=== PATIENT | male | born 1980 | race African-American/Black ===

== ENCOUNTER 2018-04-23 07:41 | Emergency (ER) | payer OTHER, SELFPAY ==
[2018-04-23] MEDS ORDERED: NA CHLORIDE 0.9% 1,000 ML ONE (07:59)
[2018-04-23] MEDS ORDERED: ONDANSETRON 4 MG/2 ML VIAL ONE (07:59)
[2018-04-23 08:24] LABS: Absolute Lymphocytes (CBC) 1.2 K/uL (0.7-4.9); Absolute Monocytes 0.3 K/uL (0.1-1.3); Absolute Neutrophil 9.4 K/uL (1.8-8.0); Basophils % 0.2 % (0-1.3); Eosinophils % 0.6 % (0-4.4); Hematocrit 42.2 % (39.6-49.0); Lymphocytes % 11.1 % (15.3-44.8); MCH 32.8 pg (27.0-35.0); MCV 95.4 fL (80-100); MPV 10.1 fL (7.6-11.3); Monocytes % 2.4 % (3.3-12.3); RBC Red Blood Cell Count 4.42 M/uL (4.33-5.43)
[2018-04-23 08:44] LABS: ALT/SGPT 62 U/L (12-78); AST/SGOT 51 U/L (15-37); Albumin 3.7 g/dL (3.4-5.0); Alkaline Phosphatase 80 U/L (45-117); BUN Blood Urea Nitrogen 17 mg/dL (7-18); Bicarbonate 29 mmol/L (21-32); Bilirubin Direct 0.1 mg/dL (0-0.2); Bilirubin Total 0.3 mg/dL (0.2-1.0); Glucose Level 145 mg/dL (74-106); Lipase 80 U/L (73-393); Potassium 3.7 mmol/L (3.5-5.1); Protein, Total 7.3 g/dL (6.4-8.2); Sodium Level 142 mmol/L (136-145)
[2018-04-23 09:53] LABS: Blood Morphology Comment NOT SEEN (NOT SEEN); Platelet Estimate ADEQ
--- NOTE | 2018-04-23 09:58 | EDPHYS ---
Physician Documentation [facility] Name: Bruec Oswald Age: 37 yrs Sex: Male : 1980 Arrival Date: 04/23/2018 Time: 07:43 Bed 15 Private MD: ED Physician Juarez Marte Historical: - Allergies: 04/23 07:47 NKDA; tw2 - PMHx: 07:47 Asthma; Hypertension; Back pain; tw2 - PSHx: 07:47 None; tw2 - Immunization history:: Adult Immunizations up to date. - Social history:: Smoking status: Patient uses tobacco products, smokes one pack cigarettes per day. - Ebola Screening: : Patient denies travel to an Ebola-affected area in the 21 days before illness onset. Vital Signs: 07:45 BP 183 / 92; Pulse 45; Resp 17; Temp 97.6(O); Pulse Ox 99% ; Weight 58.97 kg (R); Pain tw2 8/10; 08:09 BP 151 / 87; Pulse 47; Resp 15; Pulse Ox 100% on R/A; tw2 08:47 BP 143 / 86; Pulse 64; Resp 19; Pulse Ox 100% on R/A; tw2 09:32 BP 153 / 84; Pulse 51; Resp 17; Pulse Ox 100% on R/A; tw2 10:07 BP 167 / 98; Pulse 63; Resp 19; Temp 98.1; Pulse Ox 100% on R/A; aj 07:45 Dr. Marte at nurses station and notified of pts HR for us and EMS tw2 MDM: 07:54 Patient medically screened. 04/23 07:54 Order name: Basic Metabolic Panel; Complete Time: 09:14 04/23 07:54 Order name: CBC with Diff; Complete Time: 09:58 04/23 07:54 Order name: Hepatic Function; Complete Time: 09:14 04/23 07:54 Order name: Lipase; Complete Time: 09:14 04/23 07:56 Order name: Urine Dipstick--Ancillary (enter results) 04/23 07:54 Order name: IV Saline Lock; Complete Time: 08:06 04/23 07:54 Order name: Labs collected and sent; Complete Time: 08:07 04/23 07:54 Order name: Urine Dipstick-Ancillary (obtain specimen); Complete Time: 07:55 04/23 08:27 Order name: Manual Differential; Complete Time: 09:58 EDMS Administered Medications: 08:04 Drug: Zofran 4 mg Route: IVP; Site: right antecubital; tw2 08:25 Follow up: Response: No adverse reaction; Nausea is decreased tw2 08:07 Drug: NS 0.9% 1000 ml Route: IV; Rate: 1 bolus; Site: right antecubital; tw2 09:22 Follow up: Response: No adverse reaction; IV Status: Completed infusion; IV Intake: tw2 1000ml Disposition: 04/23/18 09:57 Discharged to Home. Impression: Vomiting. - Condition is Stable. - Discharge Instructions: Nausea and Vomiting. - Prescriptions for Zofran 4 mg Oral Tablet - take 1 tablet by ORAL route every 12 hours As needed; 6 tablet. Pepcid 20 mg Oral Tablet - take 1 tablet by ORAL route once daily; 20 tablet. - Medication Reconciliation Form, Thank You Letter, Antibiotic Education, Prescription Opioid Use form. - Follow up: Emergency Department; When: 2 - 3 days; Reason: Re-evaluation by your physician. Addendum: 05/13/2018 16:21 Addendum: CC - N/V Ab pain HPI-onset last night go better also with vomiting pain is g s generalized not localized, had one episode this am no resolved. PMH/ALL/ reviewed sochx lives with family PE VSS Gen- no distress nontoxic , Head- normal shape no masses ENT-op clear no erythema CV-rrr no murmur P- lungs clear no increased WOB Gi - abdomen soft non tender Skin no rash - neuro awake no deficits MDM - gastroenteritis , food born illness , viral gastroenteritis improved taking fluids no pain will discharge. Signatures: Dispatcher [employer] EDChanda Angulo RN RN aj Wise, Tara, RN RN tw2 Juarez Marte MD MD gs Corrections: (The following items were deleted from the chart) 04/23 10:08 09:57 04/23/2018 09:57 Discharged to Home. Impression: Vomiting. Condition is Stable. aj Forms are Medication Reconciliation Form, Thank You Letter, Antibiotic Education, Prescription Opioid Use. Follow up: Emergency Department; When: 2 - 3 days; Reason: Re-evaluation by your physician. jesica
--- NOTE | 2018-04-23 09:58 | ER ---
Nurse's Notes [facility] Name: Bruce Oswald Age: 37 yrs Sex: Male : 1980 Arrival Date: 04/23/2018 Time: 07:43 Bed 15 Private MD: Diagnosis: Vomiting Presentation: 04/23 07:39 Presenting complaint: EMS states: pt c/o abd pain that started last night, he called tw2 EMS but then lilibeth better so he refused transport, started bothering him again and call us, low HR in the 40's. Transition of care: patient was not received from another setting of care. Onset of symptoms was April 23, 2018 at 07:44. Risk Assessment: Do you want to hurt yourself or someone else? Patient reports no desire to harm self or others. Initial Sepsis Screen: Does the patient meet any 2 criteria? No. Patient's initial sepsis screen is negative. Does the patient have a suspected source of infection? No. Patient's initial sepsis screen is negative. Care prior to arrival: None. 07:39 Method Of Arrival: EMS: [facility] tw2 07:39 Acuity: ZENON 3 tw2 Historical: - Allergies: 07:47 NKDA; tw2 - PMHx: 07:47 Asthma; Hypertension; Back pain; tw2 - PSHx: 07:47 None; tw2 - Immunization history:: Adult Immunizations up to date. - Social history:: Smoking status: Patient uses tobacco products, smokes one pack cigarettes per day. - Ebola Screening: : Patient denies travel to an Ebola-affected area in the 21 days before illness onset. Screenin:49 Abuse screen: Denies threats or abuse. Nutritional screening: No deficits noted. tw2 Tuberculosis screening: No symptoms or risk factors identified. Fall Risk None identified. Assessment: 07:47 General: Appears uncomfortable, slender, Behavior is cooperative, fussy. Pain: tw2 Complains of pain in abdomen. Neuro: Level of Consciousness is awake, alert, obeys commands, Oriented to person, place, time, situation. Cardiovascular: Denies chest pain, shortness of breath, Heart tones S1 S2 Capillary refill < 3 seconds Patient's skin is warm and dry. Respiratory: Airway is patent Respiratory effort is even, unlabored, Respiratory pattern is regular, symmetrical, Breath sounds are clear bilaterally. GI: Bowel sounds present X 4 quads. Abd is soft Reports intolerance of fluids, intolerance of food, nausea, vomiting. : No signs and/or symptoms were reported regarding the genitourinary system. EENT: No signs and/or symptoms were reported regarding the EENT system. Derm: No signs and/or symptoms reported regarding the dermatologic system. Skin is intact, is healthy with good turgor, Skin temperature is warm. Musculoskeletal: Range of motion: intact in all extremities. 08:30 Reassessment: Patient appears in no apparent distress at this time. Patient and/or tw2 family updated on plan of care and expected duration. Pain level reassessed. Patient is alert, oriented x 3, equal unlabored respirations, skin warm/dry/pink. 09:31 Reassessment: Patient appears in no apparent distress at this time. Patient and/or tw2 family updated on plan of care and expected duration. Pain level reassessed. Patient is alert, oriented x 3, equal unlabored respirations, skin warm/dry/pink. Vital Signs: 07:45 BP 183 / 92; Pulse 45; Resp 17; Temp 97.6(O); Pulse Ox 99% ; Weight 58.97 kg (R); Pain tw2 8/10; 08:09 BP 151 / 87; Pulse 47; Resp 15; Pulse Ox 100% on R/A; tw2 08:47 BP 143 / 86; Pulse 64; Resp 19; Pulse Ox 100% on R/A; tw2 09:32 BP 153 / 84; Pulse 51; Resp 17; Pulse Ox 100% on R/A; tw2 10:07 BP 167 / 98; Pulse 63; Resp 19; Temp 98.1; Pulse Ox 100% on R/A; aj 07:45 Dr. Marte at nurses station and notified of pts HR for us and EMS tw2 ED Course: 07:43 Patient arrived in ED. tw2 07:45 Triage completed. tw2 07:45 Arm band placed on. tw2 07:48 Bed in low position. Call light in reach. Side rails up X2. burrito maker on. Pulse tw2 ox on. NIBP on. Warm blanket given. 07:49 Darcy Cade RN is Primary Nurse. tw2 07:50 Juarez Marte MD is Attending Physician. gs 08:00 Inserted saline lock: 22 gauge in right antecubital area, using aseptic technique. tw2 Blood collected. 09:33 No provider procedures requiring assistance completed. tw2 09:55 Report given to LULY Armas. tw2 10:07 IV discontinued, intact, bleeding controlled, No redness/swelling at site. Pressure aj dressing applied. Administered Medications: 08:04 Drug: Zofran 4 mg Route: IVP; Site: right antecubital; tw2 08:25 Follow up: Response: No adverse reaction; Nausea is decreased tw2 08:07 Drug: NS 0.9% 1000 ml Route: IV; Rate: 1 bolus; Site: right antecubital; tw2 09:22 Follow up: Response: No adverse reaction; IV Status: Completed infusion; IV Intake: tw2 1000ml Intake: :22 IV: 1000ml; Total: 1000ml. tw2 Outcome: 09:57 Discharge ordered by . gs 10:07 Discharged to home ambulatory. aj 10:07 Condition: good 10:07 Discharge instructions given to patient, Instructed on discharge instructions, follow up and referral plans. medication usage, Demonstrated understanding of instructions, follow-up care, medications, Prescriptions given X 2. 10:08 Patient left the ED. aj Signatures: Chanda Watson RN RN aj Wise, Tara, RN RN tw2 Juarez Marte MD MD
[2018-04-23 10:14] VITALS: O2SAT 100
[2018-04-23 10:17] VITALS: BP 167/98; TEMP 98.1
[2018-04-23 10:39] LABS: Urine Blood NEGATIVE (NEG); Urine Glucose NEGATIVE (NEG); Urine Protein NEGATIVE (NEG); Urine pH 7.5 (5.0-7.0)
== END 2018-04-23 10:08 | disposition home or self-care (01) ==
LOC: ER 07:41
DX: R11.10 Vomiting, unspecified (principal); J45.909 Unspecified asthma, uncomplicated; I10 Essential (primary) hypertension; F17.210 Nicotine dependence, cigarettes, uncomplicated
CPT/HCPCS: 36415; 80048; 80076; 81003; 83690; 85025; 96361; 96374; 99284; J2405; J7030

== ENCOUNTER 2018-06-19 10:46 | Emergency (ER) | payer SELFPAY ==
[2018-06-19 12:03] LABS: Urine Blood NEGATIVE (NEG); Urine Glucose NEGATIVE (NEG); Urine Protein NEGATIVE (NEG); Urine pH 7.5 (5.0-7.0)
[2018-06-19 12:22] LABS: Absolute Lymphocytes (CBC) 2.3 K/uL (0.7-4.9); Absolute Monocytes 0.4 K/uL (0.1-1.3); Absolute Neutrophil 5.9 K/uL (1.8-8.0); Eosinophils % 0.4 % (0-4.4); Hematocrit 43.1 % (39.6-49.0); Lymphocytes % 26.1 % (15.3-44.8); MCH 33.1 pg (27.0-35.0); MCV 96.4 fL (80-100); MPV 9.8 fL (7.6-11.3); Monocytes % 4.6 % (3.3-12.3); RBC Red Blood Cell Count 4.47 M/uL (4.33-5.43)
[2018-06-19] MEDS ORDERED: ONDANSETRON 4 MG/2 ML VIAL ONE (12:31)
[2018-06-19 12:32] LABS: ALT/SGPT 49 U/L (12-78); AST/SGOT 24 U/L (15-37); Albumin 3.9 g/dL (3.4-5.0); Alkaline Phosphatase 84 U/L (45-117); Amylase Level 59 U/L (25-115); BUN Blood Urea Nitrogen 7 mg/dL (7-18); Bicarbonate 28 mmol/L (21-32); Bilirubin Direct 0.1 mg/dL (0-0.2); Bilirubin Total 0.3 mg/dL (0.2-1.0); Glucose Level 90 mg/dL (74-106); Lipase 105 U/L (73-393); Potassium 4.1 mmol/L (3.5-5.1); Protein, Total 7.6 g/dL (6.4-8.2); Sodium Level 145 mmol/L (136-145)
[2018-06-19] MEDS ORDERED: NA CHLORIDE 0.9% 1,000 ML ONE (12:32)
--- NOTE | 2018-06-19 13:59 | ER ---
Nurse's Notes [facility] Name: Bruce Oswald Age: 38 yrs Sex: Male : 1980 Arrival Date: 06/19/2018 Time: 10:48 Bed 25 Private MD: None, None Diagnosis: Nausea and vomiting Presentation: 06/19 10:55 Presenting complaint: Patient states: vomiting x 1 day after drinking ice cold milk sv yesterday after working in the heat. Transition of care: patient was not received from another setting of care. Onset of symptoms was June 18, 2018. Care prior to arrival: None. 10:55 Method Of Arrival: Ambulatory sv 10:55 Acuity: ZENON 4 sv 14:37 Risk Assessment: Do you want to hurt yourself or someone else? Patient reports no tl3 desire to harm self or others. Initial Sepsis Screen: Does the patient meet any 2 criteria? No. Patient's initial sepsis screen is negative. Does the patient have a suspected source of infection? No. Patient's initial sepsis screen is negative. Historical: - Allergies: 10:56 NKDA; sv - PMHx: 10:56 Asthma; Back pain; Hypertension; sv - PSHx: 10:56 None; sv - Immunization history:: Adult Immunizations up to date. - Social history:: Smoking status: Patient uses tobacco products, chewing tobacco. - Ebola Screening: : No symptoms or risks identified at this time. Screenin:43 Abuse screen: Denies threats or abuse. Denies injuries from another. Nutritional ss screening: No deficits noted. Tuberculosis screening: Never had TB. Fall Risk None identified. Assessment: 11:43 General: Appears in no apparent distress. comfortable, Behavior is calm, cooperative, ss Denies fever, feeling ill, fatigue, chills. Pain: Complains of pain in right upper quadrant, left upper quadrant, right lower quadrant and left lower quadrant Pain currently is 1 out of 10 on a pain scale. Quality of pain is described as sore, "from vomiting" Is. Neuro: Level of Consciousness is awake, alert, obeys commands, Oriented to person, place, time, situation. Cardiovascular: Capillary refill < 3 seconds is brisk in bilateral fingers. Respiratory: Airway is patent Respiratory effort is even, unlabored, Respiratory pattern is regular, symmetrical. GI: Abdomen is non-distended, Bowel sounds present X 4 quads. Reports nausea, vomiting, Patient currently denies diarrhea. : No signs and/or symptoms were reported regarding the genitourinary system. EENT: Nares are clear Oral mucosa is moist. Throat is clear. Derm: Skin is intact, is healthy with good turgor, Skin is dry, Skin is pink, warm \\T\\ dry. normal. Musculoskeletal: Circulation, motion, and sensation intact. Range of motion: intact in all extremities, Swelling absent. 13:09 Reassessment: Patient appears in no apparent distress at this time. Patient and/or tw2 family updated on plan of care and expected duration. Pain level reassessed. Patient is alert, oriented x 3, equal unlabored respirations, skin warm/dry/pink. Patient states feeling better. 14:34 Reassessment: Patient appears in no apparent distress at this time. Patient and/or tl3 family updated on plan of care and expected duration. Pain level reassessed. Patient is alert, oriented x 3, equal unlabored respirations, skin warm/dry/pink. Vital Signs: 10:56 BP 169 / 94; Pulse 57; Resp 18; Temp 98.3; Pulse Ox 97% ; Weight 68.04 kg; Height 5 ft. sv 9 in. (175.26 cm); Pain 0/10; 13:00 BP 167 / 100; Pulse 77; Resp 17; Pulse Ox 100% on R/A; tw2 14:34 BP 161 / 98; Pulse 58; Resp 16; Pulse Ox 100% on R/A; tl3 10:56 Body Mass Index 22.15 (68.04 kg, 175.26 cm) sv ED Course: 10:48 Patient arrived in ED. sb2 10:48 None, None is Private Physician. sb2 10:56 Triage completed. sv 10:57 Arm band placed on left wrist. sv 10:57 Patient placed in an exam room, Patient notified of wait time. sv 11:38 Denisse Parnell F[facility]-C [facility]. kb 11:38 Marybeth Nava MD is Attending Physician. kb 11:43 Sima Ware RN is Primary Nurse. ss 11:43 Patient has correct armband on for positive identification. Bed in low position. Call ss light in reach. 12:01 Inserted saline lock: 22 gauge in left antecubital area, using aseptic technique. Blood ss collected. 12:01 Urine collected: clean catch specimen, clear. ss 12:53 Primary Nurse role handed off by Sima Ware RN tw2 12:53 Darcy Cade, RN is Primary Nurse. tw2 14:34 No provider procedures requiring assistance completed. IV discontinued, intact, tl3 bleeding controlled, No redness/swelling at site. Pressure dressing applied. Administered Medications: 12:28 Drug: NS 0.9% 1000 ml Route: IV; Rate: 1000 ml; Site: left antecubital; ss 14:36 Follow up: IV Status: Completed infusion; IV Intake: 600ml tl3 12:28 Drug: Zofran 4 mg Route: IVP; Site: left antecubital; ss 14:35 Follow up: Response: No adverse reaction; Nausea is decreased tl3 Intake: 14:36 IV: 600ml; Total: 600ml. tl3 Outcome: 13:59 Discharge ordered by . kb 14:34 Discharged to home ambulatory. tl3 14:34 Condition: stable 14:34 Discharge instructions given to patient, Instructed on discharge instructions, follow up and referral plans. discussed blood pressure readings and monitoring with follow up with PCP for management 14:38 Patient left the ED. tl3 Signatures: Denisse Parnell, AMADO-C NURSE CASE MANAGER-Mariaa Ferrell RN LULY Sima Ware RN RN Darcy Cade RN RN tw2 Livia Norris 2 Meme Castelan RN RN tl3
--- NOTE | 2018-06-19 14:00 | EDPHYS ---
Physician Documentation [facility] Name: Bruce Oswald Age: 38 yrs Sex: Male : 1980 Arrival Date: 06/19/2018 Time: 10:48 Bed 25 Private MD: None, None ED Physician Marybeth Nava HPI: 06/19 13:57 This 38 yrs old Black Male presents to ER via Ambulatory with complaints of Vomiting. kb 13:57 The patient presents to the emergency department with nausea, vomiting. Onset: The kb symptoms/episode began/occurred yesterday. Possible causes: started after drinking a half gallon of milk. The symptoms are aggravated by movement, food , The symptoms are alleviated by nothing. Associated signs and symptoms: Pertinent positives: abdominal pain, nausea, vomiting. Severity of symptoms: At their worst the symptoms were moderate in the emergency department the symptoms are unchanged. The patient has not experienced similar symptoms in the past. The patient has not recently seen a physician. Historical: - Allergies: 10:56 NKDA; sv - PMHx: 10:56 Asthma; Back pain; Hypertension; sv - PSHx: 10:56 None; sv - Immunization history:: Adult Immunizations up to date. - Social history:: Smoking status: Patient uses tobacco products, chewing tobacco. - Ebola Screening: : No symptoms or risks identified at this time. ROS: 13:58 Constitutional: Negative for fever, chills, and weight loss, ENT: Negative for injury, kb pain, and discharge, Neck: Negative for injury, pain, and swelling, Cardiovascular: Negative for chest pain, palpitations, and edema, Respiratory: Negative for shortness of breath, cough, wheezing, and pleuritic chest pain, Back: Negative for injury and pain, : Negative for injury, bleeding, discharge, and swelling, MS/Extremity: Negative for injury and deformity, Skin: Negative for injury, rash, and discoloration, Neuro: Negative for headache, weakness, numbness, tingling, and seizure. 13:58 Abdomen/GI: Positive for abdominal pain, nausea and vomiting, Negative for diarrhea, constipation, abdominal cramps, abdominal distension, anorexia. Exam: 13:58 Constitutional: This is a well developed, well nourished patient who is awake, alert, kb and in no acute distress. Head/Face: Normocephalic, atraumatic. Chest/axilla: Normal chest wall appearance and motion. Nontender with no deformity. No lesions are appreciated. Cardiovascular: Regular rate and rhythm with a normal S1 and S2. No gallops, murmurs, or rubs. Normal PMI, no JVD. No pulse deficits. Respiratory: Lungs have equal breath sounds bilaterally, clear to auscultation and percussion. No rales, rhonchi or wheezes noted. No increased work of breathing, no retractions or nasal flaring. Back: No spinal tenderness. No costovertebral tenderness. Full range of motion. Skin: Warm, dry with normal turgor. Normal color with no rashes, no lesions, and no evidence of cellulitis. MS/ Extremity: Pulses equal, no cyanosis. Neurovascular intact. Full, normal range of motion. Neuro: Awake and alert, GCS 15, oriented to person, place, time, and situation. Cranial nerves II-XII grossly intact. Motor strength 5/5 in all extremities. Sensory grossly intact. Cerebellar exam normal. Normal gait. 13:58 Abdomen/GI: Inspection: abdomen appears normal, Bowel sounds: normal, in all quadrants, Palpation: soft, in all quadrants, mild abdominal tenderness, in all quadrants. Vital Signs: 10:56 BP 169 / 94; Pulse 57; Resp 18; Temp 98.3; Pulse Ox 97% ; Weight 68.04 kg; Height 5 ft. sv 9 in. (175.26 cm); Pain 0/10; 13:00 BP 167 / 100; Pulse 77; Resp 17; Pulse Ox 100% on R/A; tw2 14:34 BP 161 / 98; Pulse 58; Resp 16; Pulse Ox 100% on R/A; tl3 10:56 Body Mass Index 22.15 (68.04 kg, 175.26 cm) sv MDM: 11:38 Patient medically screened. kb 13:57 Data reviewed: vital signs, nurses notes. Data interpreted: Pulse oximetry: on room air kb is 100 %. Interpretation: normal. Counseling: I had a detailed discussion with the patient and/or guardian regarding: the historical points, exam findings, and any diagnostic results supporting the discharge/admit diagnosis, lab results, the need for outpatient follow up, a family practitioner, to return to the emergency department if symptoms worsen or persist or if there are any questions or concerns that arise at home. 06/19 11:43 Order name: Amylase, Serum; Complete Time: 12:33 kb 06/19 11:43 Order name: Basic Metabolic Panel; Complete Time: 12:33 kb 06/19 11:43 Order name: CBC with Diff; Complete Time: 12:33 kb 06/19 11:43 Order name: Hepatic Function; Complete Time: 12:33 kb 06/19 11:43 Order name: Lipase; Complete Time: 12:33 kb 06/19 11:54 Order name: Urine Dipstick--Ancillary (enter results); Complete Time: 12:11 eb 06/19 11:43 Order name: IV Saline Lock; Complete Time: 12:01 kb 06/19 11:43 Order name: Labs collected and sent; Complete Time: 12:01 kb 06/19 11:43 Order name: Urine Dipstick-Ancillary (obtain specimen); Complete Time: 12:01 kb 06/19 13:42 Order name: PO challenge; Complete Time: 14:38 kb Administered Medications: 12:28 Drug: NS 0.9% 1000 ml Route: IV; Rate: 1000 ml; Site: left antecubital; ss 14:36 Follow up: IV Status: Completed infusion; IV Intake: 600ml tl3 12:28 Drug: Zofran 4 mg Route: IVP; Site: left antecubital; ss 14:35 Follow up: Response: No adverse reaction; Nausea is decreased tl3 Disposition: 18:49 Co-signature as Attending Physician, Marybeth Nava MD. ma2 Disposition: 06/19/18 13:59 Discharged to Home. Impression: Nausea and vomiting. - Condition is Stable. - Discharge Instructions: Nausea and Vomiting, Adult, [id number]. - Prescriptions for Zofran 4 mg Oral Tablet - take 1 tablet by ORAL route every 6 hours As needed; 20 tablet. - Medication Reconciliation Form, Thank You Letter, Antibiotic Education, Prescription Opioid Use form. - Follow up: Emergency Department; When: As needed; Reason: Worsening of condition. Follow up: Private Physician; When: 2 - 3 days; Reason: Recheck today's complaints, Continuance of care, Re-evaluation by your physician. Signatures: Dispatcher [employer] Denisse Palencia, AMADO-C AMADO-Mariaa Ferrell, RN RN sv Sima Ware RN RN ss Alzahri, Mohammad, MD MD ma2 Meme Castelan RN RN tl3 Corrections: (The following items were deleted from the chart) 14:38 13:59 06/19/2018 13:59 Discharged to Home. Impression: Nausea and vomiting. Condition tl3 is Stable. Forms are Medication Reconciliation Form, Thank You Letter, Antibiotic Education, Prescription Opioid Use. Follow up: Emergency Department; When: As needed; Reason: Worsening of condition. Follow up: Private Physician; When: 2 - 3 days; Reason: Recheck today's complaints, Continuance of care, Re-evaluation by your physician. kb
[2018-06-19 14:44] VITALS: TEMP 98.3
[2018-06-19 14:45] VITALS: O2SAT 100
[2018-06-19 14:46] VITALS: BP 161/98
== END 2018-06-19 14:38 | disposition home or self-care (01) ==
LOC: ER 10:46
DX: R11.2 Nausea with vomiting, unspecified (principal); I10 Essential (primary) hypertension; Z72.0 Tobacco use
CPT/HCPCS: 36415; 80048; 80076; 81003; 82150; 83690; 85025; 96361; 96374; 99283; J2405; J7030

== ENCOUNTER 2019-03-17 21:17 | Emergency (ER) | payer SELFPAY ==
[2019-03-17] MEDS ORDERED: HYDROCODONE/APAP 7.5/325 MG TAB ONE (22:15)
--- NOTE | 2019-03-17 22:18 | ER ---
Nurse's Notes [facility] Name: Bruce Oswald Age: 38 yrs Sex: Male : 1980 Arrival Date: 03/17/2019 Time: 21:21 Bed 30 Private MD: Diagnosis: Sciatica, right side Presentation: 03/17 21:29 Presenting complaint: Patient states: Low back pain that shoots down right leg since aj yesterday. Ambulated to triage with steady gait. Care prior to arrival: None. 21:29 Method Of Arrival: Ambulatory 21:29 Acuity: ZENNO 4 21:50 Transition of care: patient was not received from another setting of care. Onset of ca1 symptoms was March 16, 2019. Risk Assessment: Do you want to hurt yourself or someone else? Patient reports no desire to harm self or others. Initial Sepsis Screen: Does the patient meet any 2 criteria? No. Patient's initial sepsis screen is negative. Does the patient have a suspected source of infection? No. Patient's initial sepsis screen is negative. Triage Assessment: 21:29 General: Appears in no apparent distress. uncomfortable, Behavior is calm, cooperative, aj appropriate for age. Pain: Complains of pain in buttocks and right leg. Neuro: Level of Consciousness is awake, alert, obeys commands, Oriented to person, place, time, situation, Appropriate for age. Respiratory: Airway is patent Respiratory effort is even, unlabored, Respiratory pattern is regular, symmetrical. Musculoskeletal: Circulation, motion, and sensation intact. Range of motion: intact in all extremities. Historical: - Allergies: 21:29 NKDA; aj - Immunization history:: Adult Immunizations not up to date. - Social history:: Smoking status: Patient uses tobacco products, smokes one pack cigarettes per day. - Ebola Screening: : Patient negative for fever greater than or equal to 101.5 degrees Fahrenheit, and additional compatible Ebola Virus Disease symptoms Patient denies exposure to infectious person Patient denies travel to an Ebola-affected area in the 21 days before illness onset. Screenin:35 Abuse screen: Denies threats or abuse. Denies injuries from another. Nutritional ca1 screening: No deficits noted. Tuberculosis screening: No symptoms or risk factors identified. Fall Risk None identified. Assessment: 21:35 General: Appears in no apparent distress. uncomfortable, Behavior is calm, cooperative, ca1 appropriate for age. Pain: Complains of pain in right leg and buttocks Pain radiates to right leg Pain currently is 10 out of 10 on a pain scale. Quality of pain is described as shooting, Pain began 1 day ago. Is continuous. Neuro: Level of Consciousness is awake, alert, obeys commands, Oriented to person, place, time, situation. Cardiovascular: Heart tones S1 S2 present Capillary refill < 3 seconds. Respiratory: Airway is patent Respiratory effort is even, unlabored, Respiratory pattern is regular, symmetrical, Breath sounds are clear bilaterally. Derm: Skin is intact, is healthy with good turgor, Skin is pink, warm \T\ dry. Musculoskeletal: Circulation, motion, and sensation intact. Capillary refill < 3 seconds, Range of motion: intact in all extremities. 22:40 Reassessment: Patient appears in no apparent distress at this time. Patient and/or ca1 family updated on plan of care and expected duration. Pain level reassessed. Patient is alert, oriented x 3, equal unlabored respirations, skin warm/dry/pink. Patient states feeling better. Vital Signs: 21:29 BP 117 / 63; Pulse 73; Resp 18; Temp 98.3; Pulse Ox 97% on R/A; Weight 68.04 kg; Height aj 5 ft. 9 in. (175.26 cm); 22:40 BP 115 / 60; Pulse 82; Resp 18 S; Temp 98.1(O); Pulse Ox 99% on R/A; ca1 21:29 Body Mass Index 22.15 (68.04 kg, 175.26 cm) aj ED Course: 21:21 Patient arrived in ED. es 21:29 Triage completed. aj 21:29 Arm band placed on left wrist. Patient placed in an exam room. aj 21:35 Patient has correct armband on for positive identification. Placed in gown. Bed in low ca1 position. Call light in reach. Side rails up X 1. Pulse ox on. NIBP on. Warm blanket given. 21:35 No provider procedures requiring assistance completed. Patient did not have IV access ca1 during this emergency room visit. 21:37 Denisse Parnell FNP-C is PHCP. kb 21:37 Marybeth Nava MD is Attending Physician. kb 21:43 Khloe Omer, RN is Primary Nurse. ca1 Administered Medications: 22:00 Drug: [place] (7.5 mg-325 mg) 1 tabs Route: PO; mg2 22:48 Follow up: Response: No adverse reaction; Pain is decreased ca1 Outcome: 22:17 Discharge ordered by . jorgito 22:51 Discharged to home ambulatory, with significant other. ca1 22:51 Condition: stable 22:51 Discharge instructions given to patient, Instructed on discharge instructions, follow up and referral plans. medication usage, Demonstrated understanding of instructions, follow-up care, medications, Prescriptions given X 2. 22:52 Patient left the ED. ca1 Signatures: Denisse Parnell, TRAINING EXECUTIVE-C TRAINING EXECUTIVE-Chanda Latham, RN RN Debbie Brian Michele, RN LULY mg2 Khloe Omer RN RN ca1
--- NOTE | 2019-03-17 22:18 | EDPHYS ---
Physician Documentation [facility] Name: Bruce Oswald Age: 38 yrs Sex: Male : 1980 Arrival Date: 03/17/2019 Time: 21:21 Bed 30 Private MD: ED Physician Marybeth Nava HPI: 03/17 22:18 This 38 yrs old Black Male presents to ER via Ambulatory with complaints of Back Pain. kb 22:18 The patient presents with pain that is acute, with no known mechanism of injury. The kb symptoms are located in the right low back. Onset: The symptoms/episode began/occurred this morning. The pain radiates to the right leg. Associated signs and symptoms: The patient has no apparent associated signs or symptoms. The problem was sustained from unknown cause. Modifying factors: The patient symptoms are alleviated by rest, the patient symptoms are aggravated by any movement. Severity of symptoms: At their worst the symptoms were moderate, in the emergency department the symptoms are unchanged. The patient has not experienced similar symptoms in the past. The patient has not recently seen a physician. Historical: - Allergies: 21:29 NKDA; aj - Immunization history:: Adult Immunizations not up to date. - Social history:: Smoking status: Patient uses tobacco products, smokes one pack cigarettes per day. - Ebola Screening: : Patient negative for fever greater than or equal to 101.5 degrees Fahrenheit, and additional compatible Ebola Virus Disease symptoms Patient denies exposure to infectious person Patient denies travel to an Ebola-affected area in the 21 days before illness onset. ROS: 22:05 Constitutional: Negative for fever, chills, and weight loss, Cardiovascular: Negative kb for chest pain, palpitations, and edema, Respiratory: Negative for shortness of breath, cough, wheezing, and pleuritic chest pain, Abdomen/GI: Negative for abdominal pain, nausea, vomiting, diarrhea, and constipation, : Negative for injury, bleeding, discharge, and swelling, MS/Extremity: Negative for injury and deformity, Skin: Negative for injury, rash, and discoloration, Neuro: Negative for headache, weakness, numbness, tingling, and seizure. 22:05 Back: Positive for pain at rest, pain with movement, radiated pain, of the right low back. Exam: 22:05 Constitutional: This is a well developed, well nourished patient who is awake, alert, kb and in no acute distress. Head/Face: Normocephalic, atraumatic. Neck: Trachea midline, no thyromegaly or masses palpated, and no cervical lymphadenopathy. Supple, full range of motion without nuchal rigidity, or vertebral point tenderness. No Meningismus. Chest/axilla: Normal chest wall appearance and motion. Nontender with no deformity. No lesions are appreciated. Cardiovascular: Regular rate and rhythm with a normal S1 and S2. No gallops, murmurs, or rubs. Normal PMI, no JVD. No pulse deficits. Respiratory: Lungs have equal breath sounds bilaterally, clear to auscultation and percussion. No rales, rhonchi or wheezes noted. No increased work of breathing, no retractions or nasal flaring. Back: No spinal tenderness. No costovertebral tenderness. Full range of motion. Skin: Warm, dry with normal turgor. Normal color with no rashes, no lesions, and no evidence of cellulitis. MS/ Extremity: Pulses equal, no cyanosis. Neurovascular intact. Full, normal range of motion. Neuro: Awake and alert, GCS 15, oriented to person, place, time, and situation. Cranial nerves II-XII grossly intact. Motor strength 5/5 in all extremities. Sensory grossly intact. Cerebellar exam normal. Normal gait. 22:05 Abdomen/GI: Inspection: abdomen appears normal, Bowel sounds: normal, in all quadrants, Palpation: soft, in all quadrants, moderate abdominal tenderness, in the right lower quadrant. Vital Signs: 21:29 BP 117 / 63; Pulse 73; Resp 18; Temp 98.3; Pulse Ox 97% on R/A; Weight 68.04 kg; Height aj 5 ft. 9 in. (175.26 cm); 22:40 BP 115 / 60; Pulse 82; Resp 18 S; Temp 98.1(O); Pulse Ox 99% on R/A; ca1 21:29 Body Mass Index 22.15 (68.04 kg, 175.26 cm) aj MDM: 21:37 Patient medically screened. kb 22:03 Data reviewed: vital signs, nurses notes. Data interpreted: Pulse oximetry: on room air kb is 97 %. Interpretation: normal. 22:18 Counseling: I had a detailed discussion with the patient and/or guardian regarding: the kb historical points, exam findings, and any diagnostic results supporting the discharge/admit diagnosis, the need for outpatient follow up, a family practitioner, to return to the emergency department if symptoms worsen or persist or if there are any questions or concerns that arise at home. Administered Medications: 22:00 Drug: [place] (7.5 mg-325 mg) 1 tabs Route: PO; mg2 22:48 Follow up: Response: No adverse reaction; Pain is decreased ca1 Disposition: 03/18 02:20 Co-signature as Attending Physician, Marybeth Nava MD. ma2 Disposition: 03/17/19 22:17 Discharged to Home. Impression: Sciatica, right side. - Condition is Stable. - Discharge Instructions: Sciatica, [id number], Back Exercises, [id number]. - Prescriptions for Cyclobenzaprine 10 mg Oral Tablet - take 1 tablet by ORAL route every 8 hours As needed; 21 tablet. Diclofenac Sodium 75 mg Oral Tablet, Delayed Release (E.C.) - take 1 tablet by ORAL route 2 times per day As needed; 30 tablet. - Medication Reconciliation Form, Thank You Letter, Antibiotic Education, Prescription Opioid Use, Work release form form. - Follow up: Emergency Department; When: As needed; Reason: Worsening of condition. Follow up: Private Physician; When: 2 - 3 days; Reason: Recheck today's complaints, Continuance of care, Re-evaluation by your physician. Signatures: Denisse Parnell, AMADO-C AMADO-Chanda Latham RN RN aj Alzahri, Mohammad, MD MD [facility] RN RN mg2 Khloe Omer RN RN ca1 Corrections: (The following items were deleted from the chart) 03/17 22:52 22:17 03/17/2019 22:17 Discharged to Home. Impression: Sciatica, right side. Condition ca1 is Stable. Forms are Medication Reconciliation Form, Thank You Letter, Antibiotic Education, Prescription Opioid Use. Follow up: Emergency Department; When: As needed; Reason: Worsening of condition. Follow up: Private Physician; When: 2 - 3 days; Reason: Recheck today's complaints, Continuance of care, Re-evaluation by your physician. kb
== END 2019-03-17 22:52 | disposition home or self-care (01) ==
LOC: ER 21:17
DX: M54.31 Sciatica, right side (principal); F17.210 Nicotine dependence, cigarettes, uncomplicated
CPT/HCPCS: 99283

== ENCOUNTER 2019-03-22 04:22 | Emergency (ER) | payer SELFPAY ==
[2019-03-22] MEDS ORDERED: THIAMINE 200 MG/2 ML INJ ONE (04:53)
[2019-03-22] MEDS ORDERED: NA CHLORIDE 0.9% 1,000 ML ONE (04:55)
[2019-03-22] MEDS ORDERED: FOLIC ACID 5 MG/ML VIAL ONE (04:55)
[2019-03-22 05:07] LABS: Barbiturates NEGATIVE (NEGATIVE); Benzodiazepines NEGATIVE (NEGATIVE); Cocaine NEGATIVE (NEGATIVE); METHAMPHETAM NEGATIVE (NEGATIVE); Methadone NEGATIVE (NEGATIVE); Opiates NEGATIVE (NEGATIVE); Phencyclidine NEGATIVE (NEGATIVE); THC Cannibis NEGATIVE (NEGATIVE)
[2019-03-22 05:33] LABS: Absolute Lymphocytes (CBC) 1.3 K/uL (0.7-4.9); Absolute Monocytes 0.6 K/uL (0.1-1.3); Absolute Neutrophil 5.4 K/uL (1.8-8.0); Basophils % 0.6 % (0-1.3); Eosinophils % 0.7 % (0-4.4); Hematocrit 40.8 % (39.6-49.0); MPV 9.9 fL (7.6-11.3); Monocytes % 7.7 % (3.3-12.3); RBC Red Blood Cell Count 4.33 M/uL (4.33-5.43)
[2019-03-22 05:39] LABS: Protime INR 0.96
[2019-03-22] MEDS ORDERED: MORPHINE 4 MG/ML SYR ONE (05:43)
[2019-03-22] MEDS ORDERED: ONDANSETRON 4 MG/2 ML VIAL ONE (05:44)
[2019-03-22 05:50] LABS: ALT/SGPT 43 U/L (12-78); AST/SGOT 49 U/L (15-37); Albumin 3.7 g/dL (3.4-5.0); Alkaline Phosphatase 80 U/L (45-117); BUN Blood Urea Nitrogen 10 mg/dL (7-18); Bicarbonate 28 mmol/L (21-32); Bilirubin Direct 0.1 mg/dL (0-0.2); Bilirubin Total 0.2 mg/dL (0.2-1.0); Glucose Level 128 mg/dL (74-106); Magnesium 1.8 mg/dL (1.8-2.4); NT PRO-BNP 238 pg/mL (<125); Potassium 3.4 mmol/L (3.5-5.1); Protein, Total 7.2 g/dL (6.4-8.2); Sodium Level 144 mmol/L (136-145); Troponin (Emerg Dept Use Only) < 0.02 ng/mL (0.0-0.045)
[2019-03-22 06:01] LABS: Urine Blood NEGATIVE (NEG); Urine Glucose NEGATIVE (NEG); Urine Protein NEGATIVE (NEG); Urine Specific Gravity 1.025 (1.005-1.030); Urine pH 8.5 (5.0-7.0)
--- NOTE | 2019-03-22 06:22 | ER ---
Nurse's Notes [facility] Name: Bruce Oswald Age: 38 yrs Sex: Male : 1980 Arrival Date: 03/22/2019 Time: 04:27 Bed 7 Private MD: Diagnosis: Altered mental status, unspecified;Abuse of non-psychoactive substances;Type 2 diabetes mellitus;Vomiting;Abdominal tenderness Presentation: 03/22 04:27 Presenting complaint: EMS states: pt's girlfriend reported pt having altered mental bb status after smoking too much synthetic last night. Transition of care: patient was not received from another setting of care. Onset of symptoms was March 21, 2019. Risk Assessment: Do you want to hurt yourself or someone else? Patient reports no desire to harm self or others. Initial Sepsis Screen: Does the patient meet any 2 criteria? No. Patient's initial sepsis screen is negative. Does the patient have a suspected source of infection? No. Patient's initial sepsis screen is negative. Care prior to arrival: None. 04:27 Method Of Arrival: EMS: [facility] bb 04:27 Acuity: ZENON 2 bb Historical: - Allergies: 04:30 NKDA; bb - PMHx: 04:30 Asthma; Back pain; Hypertension; Diabetes - NIDDM; bb - Immunization history:: Adult Immunizations unknown. - Social history:: Smoking status: unknown Patient uses street drugs. - Ebola Screening: : No symptoms or risks identified at this time. - Family history:: not pertinent. Screenin:43 Abuse screen: Denies threats or abuse. Denies injuries from another. Nutritional rr5 screening: No deficits noted. Tuberculosis screening: No symptoms or risk factors identified. Fall Risk IV access (20 points). Gait- Weak (10 pts.). Mental Status- Overestimates/Forgets Limitations (15 pts.). Total Marte Fall Scale indicates High Risk Score (45 or more points). Fall prevention measures have been instituted. Side Rails Up X 2 Placed Close to Nursing Station Frequent Obs/Assessments Occuring Family Present and informed to notify staff if the need to leave the bedside As available patient and family educated on Fall Prevention Program and Strategies. Assessment: 04:30 General: Appears in no apparent distress. uncomfortable, unkempt, Behavior is drowsy, rr5 fussy. Pain: Complains of pain in abdomen Pain does not radiate. Pain currently is 10 out of 10 on a pain scale. Quality of pain is described as aching, Pain began suddenly, Is intermittent. Neuro: Level of Consciousness is awake, obeys commands, drowsy. Oriented to person, place, time, situation, Appropriate for age Speech is normal, Facial symmetry appears normal. 04:30 Cardiovascular: Capillary refill < 3 seconds Patient's skin is warm and dry. rr5 Respiratory: Airway is patent Respiratory effort is even, unlabored, Respiratory pattern is regular, symmetrical. GI: Reports lower abdominal pain, nausea, vomiting. : No signs and/or symptoms were reported regarding the genitourinary system. EENT: No signs and/or symptoms were reported regarding the EENT system. Derm: Skin is intact, Skin temperature is warm. Musculoskeletal: Capillary refill < 3 seconds, Range of motion: intact in all extremities. 05:15 Reassessment: Patient appears in no apparent distress at this time. Patient and/or rr5 family updated on plan of care and expected duration. Pain level reassessed. awaiting for result. 05:25 Reassessment: complaining of severe abdominal pain and nauseated. ED provider aware rr5 with order made and carried out. Patient states symptoms have not improved. 06:05 Reassessment: Patient appears in no apparent distress at this time. Patient and/or rr5 family updated on plan of care and expected duration. Pain level reassessed. asleep on bed comfortably. 06:37 Reassessment: Patient appears in no apparent distress at this time. No changes from rr5 previously documented assessment. discharge instruction given and explained without complaints made. Patient states symptoms have improved. Vital Signs: 04:30 BP 137 / 89; Pulse 65; Resp 18 S; Temp 97.9(O); Pulse Ox 100% on R/A; Weight 68.04 kg bb (R); Height 5 ft. 9 in. (175.26 cm) (R); Pain 10/10; 05:25 BP 163 / 99; Pulse 62; Resp 17; Pulse Ox 99% on R/A; rr5 06:00 BP 150 / 93; Pulse 62; Resp 17; Pulse Ox 100% on R/A; rr5 06:37 BP 133 / 75; Pulse 61; Resp 15; Temp 97.9; Pulse Ox 99% on R/A; rr5 04:30 Body Mass Index 22.15 (68.04 kg, 175.26 cm) bb [place] Coma Score: 04:30 Eye Response: spontaneous(4). Verbal Response: oriented(5). Motor Response: obeys rr5 commands(6). Total: 15. ED Course: 03:40 Urine collected: clean catch specimen, clear, Amount Voided: 400mL. rr5 04:27 Patient arrived in ED. bb 04:29 Triage completed. bb 04:29 Geo Oswald MD is Attending Physician. [facility] 04:30 Arm band placed on Patient placed in an exam room, on a stretcher. Family accompanied bb patient. 04:35 Ayo Barrett RN is Primary Nurse. rr5 04:35 Patient has correct armband on for positive identification. Placed in gown. Bed in low rr5 position. Call light in reach. Side rails up X2. engine monitor on. Pulse ox on. NIBP on. 04:44 X-ray completed. Portable x-ray completed in exam room. Patient tolerated procedure kw well. 04:45 XRAY Chest (1 view) In Process Unspecified. EDMS 04:[address] via stretcher. rr5 05:03 CT Head Brain wo Cont In Process Unspecified. EDMS 05:11 Inserted saline lock: 20 gauge in right upper arm, using aseptic technique. Blood oe collected. 05:45 X-ray completed. Portable x-ray completed in exam room. Patient tolerated procedure kw well. 05:47 XRAY KUB In Process Unspecified. EDMS 06:38 No provider procedures requiring assistance completed. IV discontinued, intact, rr5 bleeding controlled, No redness/swelling at site. Pressure dressing applied. Administered Medications: 05:18 Drug: NS 0.9% 1000 ml Route: IV; Rate: 1 bolus; Site: right upper arm; rr5 06:10 Follow up: Response: No adverse reaction; IV Status: Completed infusion; IV Intake: rr5 1000ml 05:18 Drug: foLIC Acid 1 mg Route: IVPB; Site: right upper arm; rr5 06:10 Follow up: Response: No adverse reaction; IV Status: Completed infusion rr5 05:18 Drug: Thiamine 100 mg Route: IV; Rate: bolus; Site: right upper arm; rr5 06:11 Follow up: Response: No adverse reaction; IV Status: Completed infusion rr5 05:30 Drug: Zofran 4 mg Route: IVP; Site: right upper arm; rr5 06:36 Follow up: Response: No adverse reaction rr5 05:32 Drug: morphine 4 mg Route: IVP; Site: right upper arm; rr5 06:36 Follow up: Response: No adverse reaction rr5 06:25 Drug: Potassium Effervescent Tablet 25 mEq Route: PO; rr5 06:42 Follow up: Response: Medication administered at discharge. rr5 Intake: 06:10 IV: 1000ml; Total: 1000ml. rr5 Output: 04:40 Urine: 400ml (Voided); Total: 400ml. rr5 Outcome: 06:21 Discharge ordered by . joo 06:38 Discharged to home ambulatory, with family. rr5 06:38 Condition: stable 06:38 Discharge instructions given to patient, family, Instructed on discharge instructions, follow up and referral plans. medication usage, Demonstrated understanding of instructions, follow-up care, medications, Prescriptions given X 2. 06:42 Patient left the ED. rr5 Signatures: Dispatcher [employer] EDMS Geo Oswald MD MD cha Ballard, Brenda, RN RN Ketty Cooley [place] oe Roque, Raymond, RN RN rr5
--- NOTE | 2019-03-22 06:23 | EDPHYS ---
Physician Documentation [facility] Name: Bruce Oswald Age: 38 yrs Sex: Male : 1980 Arrival Date: 03/22/2019 Time: 04:27 Bed 7 Private MD: LEEROY Physician Geo Oswald HPI: 03/22 04:33 This 38 yrs old Black Male presents to ER via EMS with complaints of Altered Mental joo Status. 04:33 The patient presents with confusion, trouble concentrating. Onset: The symptoms/episode joo began/occurred 2 day(s) ago. Possible causes: drug use, unknown. Associated signs and symptoms: Pertinent positives: confusion. Current symptoms: In the emergency department the patient's symptoms are unchanged from the initial presentation. Patient's baseline: Neuro: alert and fully oriented. The patient has experienced similar episodes in the past. Historical: - Allergies: 04:30 NKDA; bb - PMHx: 04:30 Asthma; Back pain; Hypertension; Diabetes - NIDDM; bb - Immunization history:: Adult Immunizations unknown. - Social history:: Smoking status: unknown Patient uses street drugs. - Ebola Screening: : No symptoms or risks identified at this time. - Family history:: not pertinent. ROS: 04:33 Constitutional: Negative for fever, chills, and weight loss, Eyes: Negative for injury, joo pain, redness, and discharge, ENT: Negative for injury, pain, and discharge, Neck: Negative for injury, pain, and swelling, Cardiovascular: Negative for chest pain, palpitations, and edema, Respiratory: Negative for shortness of breath, cough, wheezing, and pleuritic chest pain, Abdomen/GI: Negative for abdominal pain, nausea, vomiting, diarrhea, and constipation, Back: Negative for injury and pain, : Negative for injury, bleeding, discharge, and swelling, MS/Extremity: Negative for injury and deformity, Skin: Negative for injury, rash, and discoloration, Psych: Negative for depression, anxiety, suicide ideation, homicidal ideation, and hallucinations, Allergy/Immunology: Negative for hives, rash, and allergies, Endocrine: Negative for neck swelling, polydipsia, polyuria, polyphagia, and marked weight changes, Hematologic/Lymphatic: Negative for swollen nodes, abnormal bleeding, and unusual bruising. 04:33 Neuro: Positive for altered mental status. Exam: 04:33 Constitutional: This is a well developed, well nourished patient who is awake, alert, joo and in no acute distress. Head/Face: Normocephalic, atraumatic. Eyes: Pupils equal round and reactive to light, extra-ocular motions intact. Lids and lashes normal. Conjunctiva and sclera are non-icteric and not injected. Cornea within normal limits. Periorbital areas with no swelling, redness, or edema. ENT: Nares patent. No nasal discharge, no septal abnormalities noted. Tympanic membranes are normal and external auditory canals are clear. Oropharynx with no redness, swelling, or masses, exudates, or evidence of obstruction, uvula midline. Mucous membranes moist. Neck: Trachea midline, no thyromegaly or masses palpated, and no cervical lymphadenopathy. Supple, full range of motion without nuchal rigidity, or vertebral point tenderness. No Meningismus. Chest/axilla: Normal chest wall appearance and motion. Nontender with no deformity. No lesions are appreciated. Cardiovascular: Regular rate and rhythm with a normal S1 and S2. No gallops, murmurs, or rubs. Normal PMI, no JVD. No pulse deficits. Respiratory: Lungs have equal breath sounds bilaterally, clear to auscultation and percussion. No rales, rhonchi or wheezes noted. No increased work of breathing, no retractions or nasal flaring. Abdomen/GI: Soft, non-tender, with normal bowel sounds. No distension or tympany. No guarding or rebound. No evidence of tenderness throughout. Back: No spinal tenderness. No costovertebral tenderness. Full range of motion. Male : Normal genitalia with no discharge or lesions. Skin: Warm, dry with normal turgor. Normal color with no rashes, no lesions, and no evidence of cellulitis. MS/ Extremity: Pulses equal, no cyanosis. Neurovascular intact. Full, normal range of motion. Psych: Awake, alert, with orientation to person, place and time. Behavior, mood, and affect are within normal limits. 04:33 Neuro: Orientation: is normal, appropriate for stated age, no acute changes, Mentation: is normal, appropriate for stated age, no acute changes, Memory: unable to test, Cranial nerves: is grossly normal based on the patient's age, no acute changes, Cerebellar function: unable to test, Motor: moves all fours, Sensation: no obvious gross deficits, Gait: not tested. seizure activity, is not displayed by the patient. Vital Signs: 04:30 BP 137 / 89; Pulse 65; Resp 18 S; Temp 97.9(O); Pulse Ox 100% on R/A; Weight 68.04 kg bb (R); Height 5 ft. 9 in. (175.26 cm) (R); Pain 10/10; 05:25 BP 163 / 99; Pulse 62; Resp 17; Pulse Ox 99% on R/A; rr5 06:00 BP 150 / 93; Pulse 62; Resp 17; Pulse Ox 100% on R/A; rr5 06:37 BP 133 / 75; Pulse 61; Resp 15; Temp 97.9; Pulse Ox 99% on R/A; rr5 04:30 Body Mass Index 22.15 (68.04 kg, 175.26 cm) bb Hewitt Coma Score: 04:30 Eye Response: spontaneous(4). Verbal Response: oriented(5). Motor Response: obeys rr5 commands(6). Total: 15. MDM: 04:29 Patient medically screened. [facility] 04:33 Data reviewed: vital signs, nurses notes, lab test result(s), EKG, radiologic studies, [facility] CT scan, plain films. 03/22 04:32 Order name: Basic Metabolic Panel [facility] 03/22 04:32 Order name: CBC with Diff [facility] 03/22 04:32 Order name: LFT's [facility] 03/22 04:32 Order name: Magnesium [facility] 03/22 04:32 Order name: NT PRO-BNP [facility] 03/22 04:32 Order name: PT-INR [facility] 03/22 04:32 Order name: Troponin (emerg Dept Use Only); Complete Time: 06:16 [facility] 03/22 04:32 Order name: Acetaminophen; Complete Time: 06:16 [facility] 03/22 04:32 Order name: ETOH Level; Complete Time: 06:16 [facility] 03/22 04:32 Order name: Ptt, Activated; Complete Time: 06:16 [facility] 03/22 04:32 Order name: Salicylate; Complete Time: 06:16 [facility] 03/22 04:32 Order name: Urine Drug Screen; Complete Time: 06:16 [facility] 03/22 04:32 Order name: Lipase; Complete Time: 06:16 [facility] 03/22 04:33 Order name: Basic Metabolic Panel; Complete Time: 06:16 EDAL 03/22 04:32 Order name: XRAY Chest (1 view) [facility] 03/22 04:32 Order name: EKG; Complete Time: 04:34 [facility] 03/22 04:32 Order name: CT Head Brain wo Cont [facility] 03/22 04:33 Order name: CBC with Automated Diff; Complete Time: 06:16 EDAL 03/22 04:33 Order name: Liver (Hepatic) Function; Complete Time: 06:16 EDAL 03/22 04:33 Order name: Magnesium; Complete Time: 06:16 EDAL 03/22 04:33 Order name: NT PRO-BNP; Complete Time: 06:16 EDAL 03/22 04:33 Order name: Protime (+INR); Complete Time: 06:16 EDAL 03/22 05:10 Order name: Urine Dipstick--Ancillary (enter results) ag4 03/22 05:25 Order name: XRAY KUB rr5 03/22 04:32 Order name: Cardiac monitoring; Complete Time: 04:39 [facility] 03/22 04:32 Order name: EKG - Nurse/Tech; Complete Time: 04:39 [facility] 03/22 04:32 Order name: IV Saline Lock; Complete Time: 05:23 [facility] 03/22 04:32 Order name: Labs collected and sent; Complete Time: 05:23 [facility] 03/22 04:32 Order name: O2 Per Protocol; Complete Time: 04:42 [facility] 03/22 04:32 Order name: O2 Sat Monitoring; Complete Time: 05:23 [facility] 03/22 04:32 Order name: Urine Dipstick-Ancillary (obtain specimen); Complete Time: 04:42 [facility] Administered Medications: 05:18 Drug: NS 0.9% 1000 ml Route: IV; Rate: 1 bolus; Site: right upper arm; rr5 06:10 Follow up: Response: No adverse reaction; IV Status: Completed infusion; IV Intake: rr5 1000ml 05:18 Drug: foLIC Acid 1 mg Route: IVPB; Site: right upper arm; rr5 06:10 Follow up: Response: No adverse reaction; IV Status: Completed infusion rr5 05:18 Drug: Thiamine 100 mg Route: IV; Rate: bolus; Site: right upper arm; rr5 06:11 Follow up: Response: No adverse reaction; IV Status: Completed infusion rr5 05:30 Drug: Zofran 4 mg Route: IVP; Site: right upper arm; rr5 06:36 Follow up: Response: No adverse reaction rr5 05:32 Drug: morphine 4 mg Route: IVP; Site: right upper arm; rr5 06:36 Follow up: Response: No adverse reaction rr5 06:25 Drug: Potassium Effervescent Tablet 25 mEq Route: PO; rr5 06:42 Follow up: Response: Medication administered at discharge. rr5 Disposition: 03/22/19 06:21 Discharged to Home. Impression: Altered mental status, unspecified, Abuse of non-psychoactive substances, Type 2 diabetes mellitus, Vomiting, Abdominal tenderness. - Condition is Stable. - Discharge Instructions: Abdominal Pain, Adult, Confusion, Type 2 Diabetes Mellitus, Diagnosis, Adult, Substance Use Disorder, Abdominal Pain, Adult, [id number], Type 2 Diabetes Mellitus, Diagnosis, Adult, [id number], Hypokalemia. - Prescriptions for Pepcid 20 mg Oral Tablet - take 1 tablet by ORAL route every 12 hours for 10 days; 20 tablet. Zofran 4 mg Oral Tablet - take 1 tablet by ORAL route every 12 hours As needed; 14 tablet. - Medication Reconciliation Form, Thank You Letter, Antibiotic Education, Prescription Opioid Use form. - Follow up: Private Physician; When: 2 - 3 days; Reason: Recheck today's complaints, Continuance of care, Re-evaluation by your physician. - Problem is new. - Symptoms have improved. Signatures: Dispatcher [employer] EDAL Geo Oswald MD MD cha Ballard, Brenda, RN RN Ayo Toney RN RN rr5 Corrections: (The following items were deleted from the chart) 06:27 06:21 03/22/2019 06:21 Discharged to Home. Impression: Altered mental status, joo unspecified; Abuse of non-psychoactive substances; Type 2 diabetes mellitus; Vomiting. Condition is Stable. Discharge Instructions: Confusion, Type 2 Diabetes Mellitus, Diagnosis, Adult, Substance Use Disorder, Type 2 Diabetes Mellitus, Diagnosis, Adult, [id number]. Forms are Medication Reconciliation Form, Thank You Letter, Antibiotic Education, Prescription Opioid Use. Follow up: Private Physician; When: 2 - 3 days; Reason: Recheck today's complaints, Continuance of care, Re-evaluation by your physician. Problem is new. Symptoms have improved. [facility] 06:42 06:27 03/22/2019 06:21 Discharged to Home. Impression: Altered mental status, rr5 unspecified; Abuse of non-psychoactive substances; Type 2 diabetes mellitus; Vomiting; Abdominal tenderness. Condition is Stable. Discharge Instructions: Confusion, Type 2 Diabetes Mellitus, Diagnosis, Adult, Substance Use Disorder, Type 2 Diabetes Mellitus, Diagnosis, Adult, Ipfe-[id number], Hypokalemia. Prescriptions for Pepcid 20 mg Oral Tablet - take 1 tablet by ORAL route every 12 hours for 10 days; 20 tablet, Zofran 4 mg Oral Tablet - take 1 tablet by ORAL route every 12 hours As needed; 14 tablet. and Forms are Medication Reconciliation Form, Thank You Letter, Antibiotic Education, Prescription Opioid Use. Follow up: Private Physician; When: 2 - 3 days; Reason: Recheck today's complaints, Continuance of care, Re-evaluation by your physician. Problem is new. Symptoms have improved. [facility]
[2019-03-22] MEDS ORDERED: POTASSIUM 25 MEQ EFFERV TAB ONE (06:39)
[2019-03-22 06:51] VITALS: TEMP 97.9
[2019-03-22 06:54] VITALS: BP 133/75; O2SAT 99
--- NOTE | 2019-03-22 08:03 | EKG ---
Test Date: 2019-03-22 Test Time: 04:34:59 Maintenance Carpenter: MARCIA MEASUREMENT RESULTS: Intervals: Rate: 51 [place]: 184 QRSD: 102 QT: 450 QTc: 414 [place]: P: 66 [place]: 184 QRS: 70 T: 51 INTERPRETIVE STATEMENTS: Sinus bradycardia Voltage criteria for left ventricular hypertrophy Nonspecific ST abnormality Abnormal ECG Compared to ECG 03/09/2016 02:51:17 No significant changes Electronically Signed On 03-22-19 08:02:55 CDT by Mark Burnett
--- NOTE | 2019-03-22 11:42 | RAD REPORT ---
EXAM DESCRIPTION: RAD - Abdomen 1 View (KUB) - 03/22/2019 5:48 am CLINICAL HISTORY: ABD PAIN Pain COMPARISON: No comparisons FINDINGS: The bowel gas pattern is non-obstructive. No evidence of free air or pneumatosis. No suspi cious calcifications. No significant bony findings. IMPRESSION: Negative examination.
--- NOTE | 2019-03-22 11:43 | RAD REPORT ---
EXAM DESCRIPTION: RAD - Chest Single View - 03/22/2019 4:46 am CLINICAL HISTORY: COUGH Chest pain. COMPARISON: CHEST SINGLE VIEW dated 05/20/2015; CHEST SINGLE VIEW dated 05/18/2015; CHEST SINGLE VIEW dated 04/14/2008 FINDINGS: Portable technique limits examination quality. The lungs are grossly clear. The heart is normal in size. No displaced fractures. IMPRESSION: No acute intrathoracic process suspected.
--- NOTE | 2019-03-24 11:01 | RAD REPORT ---
EXAM DESCRIPTION: LJ TRAMMELL [id number] - Head Brain Wo Cont CT HEAD WITHOUT CONTRAST 03/22/2019 5:05 AM CDT CLINICAL HISTORY: Altered mental status after smoking too much synthetic last night. Asthma. COMPARISON: None. TECHNIQUE: Axial [address] imaging of the brain. Reformatted coronal and sagittal images ob tained. This examination was performed according to our departmental dose optimization program, which include s automated exposure control, adjustment of the mA and/or kV according to patient size and/or use of iterative reconstruction technique. FINDINGS: Normal size and contour of the ventricles. Extra-axial fluid spaces appear normal. No andrea a, hemorrhage, mass, midline shift. No acute infarction or hyperdense vessel. Normal cerebellum. Fourth ventricle is midline. No hemorrhage within the posterior fossa. Normal verm is. Normal sella contents. Normal appearance of the intraorbital contents. Clear paranasal sinuses. Right frontal sinus is not p neumatized. Mastoid air cells are clear bilaterally. Intact skull base. Intact calvarium. Unremarkabl e scalp soft tissues. IMPRESSION: 1. Negative CT brain. Electronically signed by: Radhika Rojas DO 03/22/2019 5:07 AM CDT Due to temporary technical issues with the PACS/Fluency reporting system, reports are being signed by the in house radiologist as a courtesy to ensure prompt reporting. The interpreting radiologist is f ully responsible for the content of the report.
== END 2019-03-22 06:42 | disposition home or self-care (01) ==
LOC: ER 04:22
DX: R41.82 Altered mental status, unspecified (principal); E11.9 Type 2 diabetes mellitus without complications; F55.8 Abuse of other non-psychoactive substances; R11.10 Vomiting, unspecified; R10.9 Unspecified abdominal pain; J45.909 Unspecified asthma, uncomplicated; I10 Essential (primary) hypertension
CPT/HCPCS: 36415; 70450; 71045; 74018; 80048; 80076; 80307; 80320; 80329; 81003; 83690; 83735; 83880; 84484; 85025; 85610; 85730; 93005; 96365; 96368; 96375; 99285; J2405; J3411; J7030

== ENCOUNTER 2019-06-13 14:20 | Emergency (ER) | payer OTHER ==
[2019-06-13] MEDS ORDERED: NA CHLORIDE 0.9% 2,000 ML ONE (15:38)
[2019-06-13 15:50] LABS: Absolute Lymphocytes (CBC) 2.1 K/uL (0.7-4.9); Basophils % 0.7 % (0-1.3); Hematocrit 51.1 % (39.6-49.0); Lymphocytes % 16.7 % (15.3-44.8); MPV 10.4 fL (7.6-11.3); RBC Red Blood Cell Count 5.55 M/uL (4.33-5.43)
[2019-06-13 15:51] LABS: Protime INR 1.01
[2019-06-13 16:00] LABS: Barbiturates NEGATIVE (NEGATIVE); Benzodiazepines NEGATIVE (NEGATIVE); Cocaine POSITIVE (NEGATIVE); METHAMPHETAM NEGATIVE (NEGATIVE); Methadone NEGATIVE (NEGATIVE); Opiates NEGATIVE (NEGATIVE); Phencyclidine NEGATIVE (NEGATIVE); THC Cannibis NEGATIVE (NEGATIVE)
[2019-06-13 16:04] LABS: ALT/SGPT 42 U/L (12-78); AST/SGOT 28 U/L (15-37); Albumin 4.8 g/dL (3.4-5.0); Alkaline Phosphatase 86 U/L (45-117); BUN Blood Urea Nitrogen 38 mg/dL (7-18); Bicarbonate 22 mmol/L (21-32); Bilirubin Direct 0.1 mg/dL (0-0.2); Bilirubin Total 0.4 mg/dL (0.2-1.0); Glucose Level 94 mg/dL (74-106); Lipase 91 U/L (73-393); Magnesium 2.6 mg/dL (1.8-2.4); NT PRO-BNP 85 pg/mL (<125); Protein, Total 9.2 g/dL (6.4-8.2); Sodium Level 138 mmol/L (136-145); Troponin (Emerg Dept Use Only) < 0.02 ng/mL (0.0-0.045)
[2019-06-13 16:35] LABS: Urine Blood TRACE (NEG); Urine Glucose NEGATIVE (NEG); Urine Protein 2+ (NEG); Urine Specific Gravity >1.030 (1.005-1.030)
--- NOTE | 2019-06-13 17:08 | ER ---
Nurse's Notes [facility] Name: Bruce Oswald Age: 39 yrs Sex: Male : 1980 Arrival Date: 06/13/2019 Time: 14:26 Bed 30 Private MD: Diagnosis: Dehydration;Cocaine abuse;Volume depletion;Unspecified kidney failure Presentation: 06/13 14:28 Presenting complaint: EMS states: Pt complains of abdominal/muscle cramps and nausea tr5 that started yesterday and got worse at work today. Pt states he also has not eaten in 4 days and has not been taking in enough water. Pt was given 200cc NS in route. BG 136. Transition of care: patient was not received from another setting of care. Onset of symptoms was June 13, 2019. Risk Assessment: Do you want to hurt yourself or someone else? Patient reports no desire to harm self or others. Initial Sepsis Screen: Does the patient meet any 2 criteria? No. Patient's initial sepsis screen is negative. Does the patient have a suspected source of infection? No. Patient's initial sepsis screen is negative. Care prior to arrival: Medication(s) given: Normal saline infusion, 200cc IV initiated. 20 GA, in the left antecubital area, Glucose check: 136. 14:28 Method Of Arrival: EMS: [facility] tr5 14:28 Acuity: ZENON 3 tr5 Historical: - Allergies: 14:32 NKDA; tr5 - Home Meds: 14:32 None [Active]; tr5 - PMHx: 14:32 Asthma; Back pain; Hypertension; tr5 - PSHx: 14:32 None; tr5 - Immunization history:: Adult Immunizations up to date. - Social history:: Smoking status: Patient/guardian denies using tobacco, never smoked. - Ebola Screening: : No symptoms or risks identified at this time. - Hospitalizations: : No recent hospitalization is reported. Screenin:37 Abuse screen: Denies threats or abuse. Nutritional screening: No deficits noted. tr5 Tuberculosis screening: No symptoms or risk factors identified. Fall Risk None identified. Assessment: 14:30 General: Appears uncomfortable, Behavior is calm, cooperative. Pain: Complains of pain tr5 in face and abdomen Pain does not radiate. Pain currently is 5 out of 10 on a pain scale. Quality of pain is described as crampy, Pain began 1 day ago. Neuro: Level of Consciousness is awake, alert, obeys commands, Oriented to person, place, time, situation, Speed Reading Teacher are equal bilaterally Moves all extremities. Cardiovascular: Heart tones present Capillary refill < 3 seconds Pulses are all present. Edema is absent. Respiratory: Airway is patent Respiratory effort is even, unlabored, Respiratory pattern is regular, symmetrical. GI: Abdomen is flat, Bowel sounds present X 4 quads. Abd is soft X 4 quads. GI: Reports nausea. : No signs and/or symptoms were reported regarding the genitourinary system. EENT: No signs and/or symptoms were reported regarding the EENT system. Derm: Skin is intact. Musculoskeletal: Capillary refill < 3 seconds, Range of motion: intact in all extremities. 15:30 Reassessment: Patient appears in no apparent distress at this time. Patient and/or tr5 family updated on plan of care and expected duration. Pain level reassessed. Patient is alert, oriented x 3, equal unlabored respirations, skin warm/dry/pink. 16:21 Reassessment: Patient appears in no apparent distress at this time. Patient and/or tr5 family updated on plan of care and expected duration. Pain level reassessed. Patient is alert, oriented x 3, equal unlabored respirations, skin warm/dry/pink. Pt's significant other at bedside. 17:30 Reassessment: Patient and/or family updated on plan of care and expected duration. Pain tr5 level reassessed. Patient is alert, oriented x 3, equal unlabored respirations, skin warm/dry/pink. Pt appears to be sleeping in bed. 18:27 Reassessment: No changes from previously documented assessment. Patient and/or family tr5 updated on plan of care and expected duration. Pain level reassessed. Patient is alert, oriented x 3, equal unlabored respirations, skin warm/dry/pink. Vital Signs: 14:32 BP 124 / 115; Pulse 87; Resp 17; Temp 98.5(O); Pulse Ox 100% on R/A; Weight 70.76 kg; tr5 15:30 BP 126 / 70; Pulse 79; Resp 16; Pulse Ox 100% on R/A; tr5 16:20 BP 124 / 74; Pulse 81; Resp 15; Pulse Ox 99% on R/A; tr5 17:30 BP 122 / 78; Pulse 72; Resp 16; Pulse Ox 99% on R/A; tr5 ED Course: 14:26 Patient arrived in ED. tr5 14:31 Triage completed. tr5 14:32 Arm band placed on. tr5 14:37 Bed in low position. Call light in reach. Side rails up X 1. tr5 14:37 Inserted saline lock: 20 gauge in left antecubital area, using aseptic technique. tr5 14:42 Magdiel Contreras, RN is Primary Nurse. tr5 14:47 Geo Oswald MD is Attending Physician. joo 15:24 Initial lab(s) drawn, by me, sent to lab. lt1 15:58 XRAY Chest (1 view) In Process Unspecified. EDMS 16:05 X-ray completed. Portable x-ray completed in exam room. jr1 16:40 EKG done, by process controls technician. reviewed by Geo Oswald MD. sm3 17:38 Marycruz Barahona MD is Hospitalizing Provider. joo 17:41 Wil Ortiz MD is Hospitalizing Provider. joo 18:28 Renal Ultrasound-Complete In Process Unspecified. EDMS 20:09 No provider procedures requiring assistance completed. IV discontinued. tr5 Administered Medications: 15:17 Drug: NS 0.9% 1000 ml Route: IV; Rate: 1 bolus; Site: left antecubital; tr5 16:19 Follow up: IV Status: Completed infusion; IV Intake: 1000ml tr5 16:18 Drug: NS 0.9% 1000 ml Route: IV; Rate: 1 bolus; Site: left antecubital; tr5 18:22 Follow up: IV Status: Completed infusion; IV Intake: 1000ml tr5 17:50 Drug: NS 0.9% 1000 ml Route: IV; Rate: 125 ml/hr; Site: left antecubital; tr5 18:23 Follow up: Response: No adverse reaction; IV Intake: 1000ml tr5 Point of Care Testing: Ranges: Intake: 16:19 IV: 1000ml; Total: 1000ml. tr5 18:22 IV: 1000ml; Total: 2000ml. tr5 18:23 IV: 1000ml; Total: 3000ml. tr5 Outcome: 17:07 Discharge ordered by . joo 17:39 Decision to Hospitalize by Provider. joo 20:09 AMA tr5 20:09 Condition: stable 20:11 Patient left the ED. tr5 Signatures: Dispatcher [employer] Geo Caal MD MD cha Ringgold, Jodee hernandez1 Keke Villalobos3 Joann Valera 1 Magdiel Contreras, RN RN tr5 Corrections: (The following items were deleted from the chart) 20:13 20:09 Discharged to home ambulatory, tr5 tr5 20:13 20:09 Discharge instructions given to patient, Instructed on discharge instructions, tr5 follow up and referral plans. tr5
--- NOTE | 2019-06-13 17:09 | EDPHYS ---
Physician Documentation [facility] Name: Bruce Oswald Age: 39 yrs Sex: Male : 1980 Arrival Date: 06/13/2019 Time: 14:26 Bed 30 Private MD: LEEROY Physician Geo Oswald HPI: 06/13 15:09 This 39 yrs old Black Male presents to ER via EMS with complaints of Nausea/Vomiting, joo Abdominal Cramping. 15:09 The patient presents to the emergency department with nausea, vomiting. Onset: The joo symptoms/episode began/occurred just prior to arrival, this morning. Possible causes: HEAT. The symptoms are aggravated by nothing. The symptoms are alleviated by nothing. Associated signs and symptoms: The patient has no apparent associated signs or symptoms. Severity of symptoms: At their worst the symptoms were moderate in the emergency department the symptoms are unchanged. The patient has not experienced similar symptoms in the past. Historical: - Allergies: 14:32 NKDA; tr5 - Home Meds: 14:32 None [Active]; tr5 - PMHx: 14:32 Asthma; Back pain; Hypertension; tr5 - PSHx: 14:32 None; tr5 - Immunization history:: Adult Immunizations up to date. - Social history:: Smoking status: Patient/guardian denies using tobacco, never smoked. - Ebola Screening: : No symptoms or risks identified at this time. - Hospitalizations: : No recent hospitalization is reported. ROS: 15:09 Constitutional: Negative for fever, chills, and weight loss, Eyes: Negative for injury, joo pain, redness, and discharge, ENT: Negative for injury, pain, and discharge, Neck: Negative for injury, pain, and swelling, Cardiovascular: Negative for chest pain, palpitations, and edema, Respiratory: Negative for shortness of breath, cough, wheezing, and pleuritic chest pain, Back: Negative for injury and pain, : Negative for injury, bleeding, discharge, and swelling, MS/Extremity: Negative for injury and deformity, Skin: Negative for injury, rash, and discoloration, Neuro: Negative for headache, weakness, numbness, tingling, and seizure, Psych: Negative for depression, anxiety, suicide ideation, homicidal ideation, and hallucinations, Allergy/Immunology: Negative for hives, rash, and allergies, Endocrine: Negative for neck swelling, polydipsia, polyuria, polyphagia, and marked weight changes, Hematologic/Lymphatic: Negative for swollen nodes, abnormal bleeding, and unusual bruising. 15:09 Abdomen/GI: Positive for abdominal pain, nausea and vomiting. Exam: 15:11 Constitutional: This is a well developed, well nourished patient who is awake, alert, joo and in no acute distress. Head/Face: Normocephalic, atraumatic. Eyes: Pupils equal round and reactive to light, extra-ocular motions intact. Lids and lashes normal. Conjunctiva and sclera are non-icteric and not injected. Cornea within normal limits. Periorbital areas with no swelling, redness, or edema. ENT: Nares patent. No nasal discharge, no septal abnormalities noted. Tympanic membranes are normal and external auditory canals are clear. Oropharynx with no redness, swelling, or masses, exudates, or evidence of obstruction, uvula midline. Mucous membranes moist. Neck: Trachea midline, no thyromegaly or masses palpated, and no cervical lymphadenopathy. Supple, full range of motion without nuchal rigidity, or vertebral point tenderness. No Meningismus. Chest/axilla: Normal chest wall appearance and motion. Nontender with no deformity. No lesions are appreciated. Cardiovascular: Regular rate and rhythm with a normal S1 and S2. No gallops, murmurs, or rubs. Normal PMI, no JVD. No pulse deficits. Respiratory: Lungs have equal breath sounds bilaterally, clear to auscultation and percussion. No rales, rhonchi or wheezes noted. No increased work of breathing, no retractions or nasal flaring. Abdomen/GI: Soft, non-tender, with normal bowel sounds. No distension or tympany. No guarding or rebound. No evidence of tenderness throughout. Back: No spinal tenderness. No costovertebral tenderness. Full range of motion. Male : Normal genitalia with no discharge or lesions. Skin: Warm, dry with normal turgor. Normal color with no rashes, no lesions, and no evidence of cellulitis. MS/ Extremity: Pulses equal, no cyanosis. Neurovascular intact. Full, normal range of motion. Neuro: Awake and alert, GCS 15, oriented to person, place, time, and situation. Cranial nerves II-XII grossly intact. Motor strength 5/5 in all extremities. Sensory grossly intact. Cerebellar exam normal. Normal gait. Psych: Awake, alert, with orientation to person, place and time. Behavior, mood, and affect are within normal limits. Vital Signs: 14:32 BP 124 / 115; Pulse 87; Resp 17; Temp 98.5(O); Pulse Ox 100% on R/A; Weight 70.76 kg; tr5 15:30 BP 126 / 70; Pulse 79; Resp 16; Pulse Ox 100% on R/A; tr5 16:20 BP 124 / 74; Pulse 81; Resp 15; Pulse Ox 99% on R/A; tr5 17:30 BP 122 / 78; Pulse 72; Resp 16; Pulse Ox 99% on R/A; tr5 MDM: 14:47 Patient medically screened. [facility] 15:12 Data reviewed: vital signs, nurses notes, lab test result(s), EKG, radiologic studies, joo ultrasound. 06/13 15:09 Order name: Basic Metabolic Panel; Complete Time: 17:05 [facility] 06/13 15:09 Order name: CBC with Diff; Complete Time: 17:05 [facility] 06/13 15:09 Order name: LFT's; Complete Time: 17:05 [facility] 06/13 15:09 Order name: Magnesium; Complete Time: 17:05 [facility] 06/13 15:09 Order name: NT PRO-BNP; Complete Time: 17:05 [facility] 06/13 15:09 Order name: PT-INR; Complete Time: 17:05 [facility] 06/13 15:09 Order name: Troponin (emerg Dept Use Only); Complete Time: 17:05 [facility] 06/13 15:09 Order name: XRAY Chest (1 view) [facility] 06/13 15:09 Order name: Lipase; Complete Time: 17:05 [facility] 06/13 15:11 Order name: UDS; Complete Time: 17:05 [facility] 06/13 16:00 Order name: Urine Dipstick--Ancillary (enter results); Complete Time: 17:05 06/13 18:28 Order name: Renal Ultrasound-Complete EDMS 06/13 15:09 Order name: EKG; Complete Time: 15:11 [facility] 06/13 15:09 Order name: Cardiac monitoring; Complete Time: 15:24 [facility] 06/13 15:09 Order name: EKG - Nurse/Tech; Complete Time: 16:07 [facility] 06/13 15:09 Order name: IV Saline Lock; Complete Time: 15:18 [facility] 06/13 15:09 Order name: Labs collected and sent; Complete Time: 15:24 [facility] 06/13 15:09 Order name: O2 Per Protocol; Complete Time: 15:17 [facility] 06/13 15:09 Order name: O2 Sat Monitoring; Complete Time: 15:17 [facility] 06/13 15:09 Order name: Urine Dipstick-Ancillary (obtain specimen); Complete Time: 16:07 [facility] Administered Medications: 15:17 Drug: NS 0.9% 1000 ml Route: IV; Rate: 1 bolus; Site: left antecubital; tr5 16:19 Follow up: IV Status: Completed infusion; IV Intake: 1000ml tr5 16:18 Drug: NS 0.9% 1000 ml Route: IV; Rate: 1 bolus; Site: left antecubital; tr5 18:22 Follow up: IV Status: Completed infusion; IV Intake: 1000ml tr5 17:50 Drug: NS 0.9% 1000 ml Route: IV; Rate: 125 ml/hr; Site: left antecubital; tr5 18:23 Follow up: Response: No adverse reaction; IV Intake: 1000ml tr5 Point of Care Testing: Ranges: Critical Glucose Levels:Adult <50 mg/dl or >400 mg/dl <40 mg/dl or >180 mg/dl Disposition: 06/13/19 19:21 Patient has left against medical advice. Impression: Dehydration, Cocaine abuse, Volume depletion, Unspecified kidney failure. - Patients states they are going to Home. - Condition is Fair. - Discharge Instructions: Stimulant Use Disorder-Cocaine, Dehydration, Adult, Acute Kidney Injury, Adult, Dehydration, Adult, [id number], Rehydration, Adult. Follow up: Private Physician; When: Upon discharge from the Emergency Department; Reason: Recheck today's complaints, Continuance of care, Re-evaluation by your physician. - Problem is new. - Symptoms have improved. Signatures: Dispatcher [employer] Geo Caal MD MD cha Rodriguez, Tommie RN RN tr5 Corrections: (The following items were deleted from the chart) 17:36 17:07 06/13/2019 17:07 Discharged to Home. Impression: Volume depletion; Cocaine abuse; joo Vomiting; Weakness. Condition is Stable. Forms are Medication Reconciliation Form, Thank You Letter, Antibiotic Education, Prescription Opioid Use. Follow up: Private Physician; When: 2 - 3 days; Reason: Recheck today's complaints, Continuance of care, Re-evaluation by your physician. Problem is new. Symptoms have improved. joo 17:41 17:39 Hospitalization Ordered by Marycruz Barahona MD for Inpatient Admission. Preliminary joo diagnosis is Vomiting; Heat exhaustion, unspecified; Volume depletion; Acute kidney failure; Cocaine abuse. Bed requested for Telemetry/MedSurg (Inpatient). Status is Inpatient Admission. Condition is Fair. Problem is new. Symptoms have improved. UTI on Admission? No. joo 18:26 17:39 Rp Exam Limited+US.RAD.BRZ ordered. EDMO EDMS 19:20 17:41 06/13/2019 17:39 Hospitalization Ordered by Wil Ortiz MD for Inpatient joo Admission. Preliminary diagnosis is Vomiting; Heat exhaustion, unspecified; Volume depletion; Acute kidney failure; Cocaine abuse. Bed requested for Telemetry/MedSurg (Inpatient). Status is Inpatient Admission. Condition is Fair. Problem is new. Symptoms have improved. UTI on Admission? No. joo 20:11 19:21 06/13/2019 19:21 Patients has left against medical advice. Impression: tr5 Dehydration; Cocaine abuse; Volume depletion; Unspecified kidney failure. Patient states they are going to Home. Condition is Fair. Prescriptions for Zofran 4 mg Oral Tablet - take 1 tablet by ORAL route every 12 hours As needed; 20 tabletFollow up: Private Physician; When: Upon discharge from the Emergency Department; Reason: Recheck today's complaints, Continuance of care, Re-evaluation by your physician. Problem is new. Symptoms have improved. joo
--- NOTE | 2019-06-13 18:44 | RAD REPORT ---
EXAM DESCRIPTION: US - Renal Ultrasound-Complete - 06/13/2019 6:24 pm CLINICAL HISTORY: . Abdominal pain COMPARISON: None. FINDINGS: The right kidney measures 10 cm with a normal echotexture. The left kidney measures 10 cm with a normal echotexture. Hydronephrosis is not seen. The bladder is decompressed and poorly evaluated IMPRESSION: Unremarkable renal ultrasound.
--- NOTE | 2019-06-13 18:52 | P.CNS ---
Date of Consult: 06/13/19 This is a 39-year-old male with past medical history of asthma, not currently on any medications who came in with complaints of decreased appetite, nausea/ vomiting. 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 He denied any abdominal pain, chest pain, shortness breath, fevers, chills, headache, vision changes, complaints. In the ER, his blood pressure was 124/115 initially, heart rate of 87, respirations of 17, afebrile at 98.5 and satting 100% on room air. His blood pressure improved to 124/74. His lab was remarkable for creatinine of 2.32. His magnesium was also elevated. Basically, he had evidence of dehydration on his labs. His urine toxicology was positive for cocaine. Past medical history: Hypertension, asthma, back pain Medications: None Surgical history: unable to tell me Social history: 1-2 [id number]-[id number] smoker for the past 15 years. Endorses occasional alcohol. He adamantly denies drug usage Physical exam: Vital signs stable In no acute distress, hemodynamically stable, alert oriented x3 Heart: Regular rate rhythm Lungs: clear to auscultation bilateral Abdomen: Soft, nontender, nondistended MSK: Normal Neutro: Nonfocal neurological exam Assessment/plan: Patient was recommended to be admitted to the hospital for acute kidney injury, dehydration for some IV hydration. Patient stated that he feels pretty good now and he would like to go home. Patient wanted to sign out AMA from the ER.
--- NOTE | 2019-06-13 19:35 | RAD REPORT ---
EXAM DESCRIPTION: Taye Single View06/13/2019 3:57 pm CLINICAL HISTORY: cough COMPARISON: March 2019 FINDINGS: . The lungs are hyperaerated. The lungs appear clear of acute infiltrate. The heart is normal size IMPRESSION: No acute abnormalities displayed
[2019-06-13 22:09] VITALS: TEMP 98.5
[2019-06-13 22:12] VITALS: O2SAT 99
[2019-06-13 22:14] VITALS: BP 122/78
--- NOTE | 2019-06-14 07:51 | EKG ---
Test Date: 2019-06-13 Test Time: 15:35:45 Ese Teacher: VICK MEASUREMENT RESULTS: Intervals: Rate: 73 NM: 136 QRSD: 90 QT: 404 QTc: 445 [place]: P: 78 NM: 136 QRS: 87 T: 50 INTERPRETIVE STATEMENTS: Normal sinus rhythm Right atrial enlargement Voltage criteria for left ventricular hypertrophy Nonspecific T wave abnormality Abnormal ECG Compared to ECG 03/22/2019 04:34:59 Atrial abnormality now present T-wave abnormality now present Sinus bradycardia no longer present Electronically Signed On 06-14-19 07:50:37 CDT by Mark Burnett
== END 2019-06-13 20:11 | disposition left against medical advice (07) ==
LOC: ER 14:20
DX: N19 Unspecified kidney failure (principal); E86.9 Volume depletion, unspecified; E86.0 Dehydration; F14.10 Cocaine abuse, uncomplicated
CPT/HCPCS: 96361; 93005; 85025; 80048; 36415; 83735; 85610; 80076; 80307 ×8; 81003; 84484; 83690; 83880; 71045; 76770; 96360; 99284; J7030

== ENCOUNTER 2019-07-10 07:59 | Emergency (ER) | payer OTHER, SELFPAY ==
[2019-07-10] MEDS ORDERED: NA CHLORIDE 0.9% 2,000 ML ONE (08:16)
[2019-07-10] MEDS ORDERED: ONDANSETRON 4 MG/2 ML VIAL ONE (08:16)
[2019-07-10 08:32] LABS: Absolute Lymphocytes (CBC) 1.8 K/uL (0.7-4.9); Basophils % 0.7 % (0-1.3); Hematocrit 47.8 % (39.6-49.0); Lymphocytes % 12.9 % (15.3-44.8); MPV 9.4 fL (7.6-11.3); RBC Red Blood Cell Count 5.18 M/uL (4.33-5.43)
--- NOTE | 2019-07-10 08:57 | EKG ---
Test Date: 2019-07-10 Test Time: 08:41:31 Senior Storage Administrator: CADEN MEASUREMENT RESULTS: Intervals: Rate: 58 MA: 150 QRSD: 98 QT: 468 QTc: 459 [place]: P: 74 MA: 150 QRS: 91 T: 65 INTERPRETIVE STATEMENTS: Sinus bradycardia Rightward axis Voltage criteria for left ventricular hypertrophy Abnormal ECG Compared to ECG 06/13/2019 15:35:45 Right-axis deviation now present Sinus rhythm no longer present Atrial abnormality no longer present T-wave abnormality no longer present Electronically Signed On 07-10-19 08:56:47 CDT by Mark Burnett
[2019-07-10 09:00] LABS: ALT/SGPT 39 U/L (12-78); AST/SGOT 31 U/L (15-37); Albumin 4.9 g/dL (3.4-5.0); Alkaline Phosphatase 94 U/L (45-117); BUN Blood Urea Nitrogen 36 mg/dL (7-18); Bicarbonate 24 mmol/L (21-32); Bilirubin Direct 0.1 mg/dL (0-0.2); Bilirubin Total 0.4 mg/dL (0.2-1.0); Creatine Phosphokinase 712 U/L (39-308); Glucose Level 125 mg/dL (74-106); Lipase 86 U/L (73-393); Magnesium 2.2 mg/dL (1.8-2.4); Potassium 3.8 mmol/L (3.5-5.1); Protein, Total 9.2 g/dL (6.4-8.2); Sodium Level 135 mmol/L (136-145); Troponin (Emerg Dept Use Only) < 0.02 ng/mL (0.0-0.045)
--- NOTE | 2019-07-10 09:02 | RAD REPORT ---
EXAM DESCRIPTION: RAD - Chest Single View - 07/10/2019 8:52 am CLINICAL HISTORY: COUGH Chest pain. COMPARISON: Chest Single View dated 06/13/2019; Abdomen 1 View (KUB) dated 03/22/2019; Chest Single Vie w dated 03/22/2019; CHEST SINGLE VIEW dated 05/20/2015 FINDINGS: Portable technique limits examination quality. The lungs are grossly clear. The heart is normal in size. No displaced fractures. IMPRESSION: No acute intrathoracic process suspected.
--- NOTE | 2019-07-10 09:14 | ER ---
Nurse's Notes 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 Transition of care: patient was not received from another setting of care. Onset of symptoms was July 09, 2019. Risk Assessment: Do you want to hurt yourself or someone else? Patient reports no desire to harm self or others. Initial Sepsis Screen: Does the patient meet any 2 criteria? No. Patient's initial sepsis screen is negative. Does the patient have a suspected source of infection? No. Patient's initial sepsis screen is negative. Care prior to arrival: None. 08:08 Method Of Arrival: Ambulatory [facility] 08:08 Acuity: ZENON 3 jl7 Triage Assessment: 08:10 General: Appears in no apparent distress. uncomfortable, Behavior is cooperative, jl7 anxious. Pain: Complains of pain in all over Pain does not radiate. Pain currently is 9 out of 10 on a pain scale. Quality of pain is described as aching, Pain began 1 day ago. Is continuous. EENT: No signs and/or symptoms were reported regarding the EENT system. Neuro: Level of Consciousness is awake, alert, obeys commands, Oriented to person, place, time, situation. Cardiovascular: Patient's skin is warm and dry. Respiratory: Airway is patent Respiratory effort is even, unlabored, Respiratory pattern is regular, symmetrical. GI: Reports diarrhea, nausea, vomiting. : No signs and/or symptoms were reported regarding the genitourinary system. Derm: Skin is pink, warm \\T\\ dry. Musculoskeletal: No signs and/or symptoms reported regarding the musculoskeletal system. Historical: - Allergies: 08:10 NKDA; jl7 - Home Meds: 08:10 None [Active]; jl7 - PMHx: 08:10 Asthma; Back pain; Hypertension; jl7 - PSHx: 08:10 None; jl7 - Immunization history:: Adult Immunizations unknown. - Social history:: Smoking status: Patient uses tobacco products, smokes one pack cigarettes per day. - Ebola Screening: : No symptoms or risks identified at this time. - Family history:: not pertinent. Screenin:12 Abuse screen: Denies threats or abuse. Denies injuries from another. Nutritional jl7 screening: No deficits noted. Tuberculosis screening: No symptoms or risk factors identified. Fall Risk IV access (20 points). Total Marte Fall Scale indicates No Risk (0-24 pts). Assessment: 08:21 General: See triage assessment. jl7 09:25 Reassessment: Pt will be discharged once fluids are done infusing and he provides urine jl7 sample. Vital Signs: 08:10 BP 158 / 97; Pulse 63; Resp 16 S; Temp 98.1(O); Pulse Ox 97% on R/A; Weight 65.77 kg jl7 (R); Height 5 ft. 9 in. (175.26 cm) (R); Pain 9/10; 10:03 BP 165 / 91; Pulse 65; Resp 16 S; Pulse Ox 100% on R/A; jl7 08:10 Body Mass Index 21.41 (65.77 kg, 175.26 cm) jl7 ED Course: 08:02 Patient arrived in ED. mr 08:02 Rober Garza, RN is Primary Nurse. jl7 08:02 Geo Oswald MD is Attending Physician. [facility] 08:09 Triage completed. jl7 08:10 Arm band placed on right wrist. jl7 08:12 Patient has correct armband on for positive identification. Placed in gown. Bed in low jl7 position. Call light in reach. Side rails up X 1. book sewer on. Pulse ox on. NIBP on. Warm blanket given. 08:19 Initial lab(s) drawn, by me, sent to lab. Inserted saline lock: 18 gauge in right dh3 antecubital area, using aseptic technique. Blood collected. 08:51 X-ray completed. Portable x-ray completed in exam room. Patient tolerated procedure mh1 well. 08:53 XRAY Chest (1 view) In Process Unspecified. EDMS 08:54 EKG done, by information technology technician. reviewed by Geo Oswald MD. at1 09:34 Urine collected: clean catch specimen, clear. dh3 10:03 No provider procedures requiring assistance completed. IV discontinued, intact, jl7 bleeding controlled, No redness/swelling at site. Pressure dressing applied. Administered Medications: 08:22 Drug: NS 0.9% 1000 ml Route: IV; Rate: 1 bolus; Site: right antecubital; jl7 09:28 Follow up: Response: No adverse reaction; IV Status: Completed infusion; IV Intake: jl7 1000ml 08:22 Drug: NS 0.9% 1000 ml Route: IV; Rate: 1 bolus; Site: right antecubital; jl7 10:03 Follow up: Response: No adverse reaction; IV Status: Completed infusion; IV Intake: jl7 1000ml 08:22 Drug: Zofran 4 mg Route: IVP; Site: right antecubital; jl7 08:40 Follow up: Response: No adverse reaction; Nausea is decreased jl7 Intake: 09:28 IV: 1000ml; Total: 1000ml. jl7 10:03 IV: 1000ml; Total: 2000ml. jl7 Outcome: 09:14 Discharge ordered by MD. ge 10:03 Discharged to home ambulatory. jl7 10:03 Condition: stable 10:03 Discharge instructions given to patient, family, Instructed on discharge instructions, follow up and referral plans. medication usage, Demonstrated understanding of instructions, follow-up care, medications, Prescriptions given X 1. 10:04 Patient left the ED. jl7 Signatures: Dispatcher [employer] EDMS Geo Oswald MD MD cha Rivera, Mary mr MartinHaley mh1 Chanda Lund, terrazzo tile maker EKG Aroldo1 Rober Garza, LULY RN jl7 Wilda Lomax 3
--- NOTE | 2019-07-10 09:15 | EDPHYS ---
Physician Documentation [facility] Name: Bruce Oswald Age: 39 yrs Sex: Male : 1980 Arrival Date: 07/10/2019 Time: 08:02 Bed 19 Private MD: Geo Lopez HPI: 07/10 08:15 This 39 yrs old Black Male presents to ER via Ambulatory with complaints of Vomiting. joo 08:15 The patient presents to the emergency department with nausea, vomiting, abdominal pain, joo of the right upper quadrant and left upper quadrant. Onset: The symptoms/episode began/occurred 2 day(s) ago. Possible causes: unknown. The symptoms are aggravated by nothing. The symptoms are alleviated by nothing. Associated signs and symptoms: The patient has no apparent associated signs or symptoms. Severity of symptoms: At their worst the symptoms were. Historical: - Allergies: 08:10 NKDA; jl7 - Home Meds: 08:10 None [Active]; jl7 - PMHx: 08:10 Asthma; Back pain; Hypertension; jl7 - PSHx: 08:10 None; jl7 - Immunization history:: Adult Immunizations unknown. - Social history:: Smoking status: Patient uses tobacco products, smokes one pack cigarettes per day. - Ebola Screening: : No symptoms or risks identified at this time. - Family history:: not pertinent. ROS: 08:15 Constitutional: Negative for fever, chills, and weight loss, Eyes: Negative for injury, joo pain, redness, and discharge, ENT: Negative for injury, pain, and discharge, Neck: Negative for injury, pain, and swelling, Cardiovascular: Negative for chest pain, palpitations, and edema, Respiratory: Negative for shortness of breath, cough, wheezing, and pleuritic chest pain, Back: Negative for injury and pain, : Negative for injury, bleeding, discharge, and swelling, Skin: Negative for injury, rash, and discoloration, Neuro: Negative for headache, weakness, numbness, tingling, and seizure. 08:15 Abdomen/GI: Positive for nausea, vomiting. 08:15 MS/extremity: Positive for pain, of the right arm, left arm, right leg and left leg. Exam: 08:15 Constitutional: This is a well developed, well nourished patient who is awake, alert, joo and in no acute distress. Head/Face: Normocephalic, atraumatic. Eyes: Pupils equal round and reactive to light, extra-ocular motions intact. Lids and lashes normal. Conjunctiva and sclera are non-icteric and not injected. Cornea within normal limits. Periorbital areas with no swelling, redness, or edema. ENT: Nares patent. No nasal discharge, no septal abnormalities noted. Tympanic membranes are normal and external auditory canals are clear. Oropharynx with no redness, swelling, or masses, exudates, or evidence of obstruction, uvula midline. Mucous membranes moist. Neck: Trachea midline, no thyromegaly or masses palpated, and no cervical lymphadenopathy. Supple, full range of motion without nuchal rigidity, or vertebral point tenderness. No Meningismus. Chest/axilla: Normal chest wall appearance and motion. Nontender with no deformity. No lesions are appreciated. Cardiovascular: Regular rate and rhythm with a normal S1 and S2. No gallops, murmurs, or rubs. Normal PMI, no JVD. No pulse deficits. Respiratory: Lungs have equal breath sounds bilaterally, clear to auscultation and percussion. No rales, rhonchi or wheezes noted. No increased work of breathing, no retractions or nasal flaring. Abdomen/GI: Soft, non-tender, with normal bowel sounds. No distension or tympany. No guarding or rebound. No evidence of tenderness throughout. Back: No spinal tenderness. No costovertebral tenderness. Full range of motion. Male : Normal genitalia with no discharge or lesions. Skin: Warm, dry with normal turgor. Normal color with no rashes, no lesions, and no evidence of cellulitis. Vital Signs: 08:10 BP 158 / 97; Pulse 63; Resp 16 S; Temp 98.1(O); Pulse Ox 97% on R/A; Weight 65.77 kg [facility] (R); Height 5 ft. 9 in. (175.26 cm) (R); Pain 9/10; 10:03 BP 165 / 91; Pulse 65; Resp 16 S; Pulse Ox 100% on R/A; [facility] 08:10 Body Mass Index 21.41 (65.77 kg, 175.26 cm) [facility] MDM: 08:02 Patient medically screened. [place] 08:17 Data reviewed: vital signs, nurses notes, lab test result(s), EKG, radiologic studies, joo plain films. 07/10 08:14 Order name: Basic Metabolic Panel; Complete Time: 09:03 [place] 07/10 08:14 Order name: CBC with Diff; Complete Time: 09:01 [place] 07/10 08:14 Order name: LFT's; Complete Time: 09:03 [place] 07/10 08:14 Order name: Magnesium; Complete Time: 09:03 [place] 07/10 08:14 Order name: Troponin (emerg Dept Use Only); Complete Time: 09:03 [place] 07/10 08:14 Order name: Ckmb; Complete Time: 09:03 [place] 07/10 08:14 Order name: XRAY Chest (1 view); Complete Time: 09:14 [place] 07/10 08:14 Order name: EKG; Complete Time: 08:16 [place] 07/10 08:14 Order name: CK; Complete Time: 09:03 [place] 07/10 08:14 Order name: Lipase; Complete Time: 09:03 [place] 07/10 09:40 Order name: Urine Dipstick--Ancillary (enter results) bd 07/10 08:14 Order name: Cardiac monitoring; Complete Time: 08:41 [place] 07/10 08:14 Order name: EKG - Nurse/Tech; Complete Time: 08:41 [place] 07/10 08:14 Order name: IV Saline Lock; Complete Time: 08:21 [place] 07/10 08:14 Order name: Labs collected and sent; Complete Time: 08:21 [place] 07/10 08:14 Order name: O2 Per Protocol; Complete Time: 08:21 [place] 07/10 08:14 Order name: O2 Sat Monitoring; Complete Time: 08:21 [place] 07/10 09:02 Order name: Urine Dipstick-Ancillary (obtain specimen); Complete Time: 09:34 [place] 07/10 09:03 Order name: PO challenge; Complete Time: 10:02 [place] Administered Medications: 08:22 Drug: NS 0.9% 1000 ml Route: IV; Rate: 1 bolus; Site: right antecubital; jl7 09:28 Follow up: Response: No adverse reaction; IV Status: Completed infusion; IV Intake: jl7 1000ml 08:22 Drug: NS 0.9% 1000 ml Route: IV; Rate: 1 bolus; Site: right antecubital; jl7 10:03 Follow up: Response: No adverse reaction; IV Status: Completed infusion; IV Intake: jl7 1000ml 08:22 Drug: Zofran 4 mg Route: IVP; Site: right antecubital; jl7 08:40 Follow up: Response: No adverse reaction; Nausea is decreased jl7 Disposition: 07/10/19 09:14 Discharged to Home. Impression: Heat exhaustion, unspecified, Heat fatigue, transient, Unspecified kidney failure - insufficency, Dehydration, Rhabdomyolysis. - Condition is Stable. - Discharge Instructions: Dehydration, Adult, Nausea and Vomiting, Adult, Rhabdomyolysis, Nausea and Vomiting, Adult, Fdzc-xq-Gywf, Heat Exhaustion Information, Dehydration, Adult, Uqni-mm-Fowm, Vomiting, Adult. - Prescriptions for Zofran 4 mg Oral Tablet - take 1 tablet by ORAL route every 12 hours As needed; 14 tablet. - Work release form, Medication Reconciliation Form, Thank You Letter, Antibiotic Education, Prescription Opioid Use form. - Follow up: Private Physician; When: 2 - 3 days; Reason: Recheck today's complaints, Continuance of care, Re-evaluation by your physician. - Problem is new. - Symptoms have improved. Signatures: Dispatcher [employer] EDMS Geo Oswald MD MD cha Leal, Jahala RN RN jl7 Corrections: (The following items were deleted from the chart) 10:04 09:14 07/10/2019 09:14 Discharged to Home. Impression: Heat exhaustion, unspecified; jl7 Heat fatigue, transient; Unspecified kidney failure - insufficency; Dehydration; Rhabdomyolysis. Condition is Stable. Discharge Instructions: Dehydration, Adult, Heat Exhaustion Information, Dehydration, Adult, Haga-kg-Tdor, Nausea and Vomiting, Adult, Nausea and Vomiting, Adult, Agiu-co-Lngw, Vomiting, Adult. Prescriptions for Zofran 4 mg Oral Tablet - take 1 tablet by ORAL route every 12 hours As needed; 14 tablet. and Forms are Medication Reconciliation Form, Thank You Letter, Antibiotic Education, Prescription Opioid Use. Follow up: Private Physician; When: 2 - 3 days; Reason: Recheck today's complaints, Continuance of care, Re-evaluation by your physician. Problem is new. Symptoms have improved. joo
[2019-07-10 09:56] LABS: Urine Blood TRACE (NEG); Urine Glucose NEGATIVE (NEG); Urine Protein 2+ (NEG); Urine Specific Gravity 1.025 (1.005-1.030); Urine pH 5.5 (5.0-7.0)
[2019-07-10 10:34] VITALS: TEMP 98.1
[2019-07-10 10:35] VITALS: BP 165/91; O2SAT 100
== END 2019-07-10 10:04 | disposition home or self-care (01) ==
LOC: ER 07:59
DX: T67.6XXA Heat fatigue, transient, initial encounter (principal); E86.0 Dehydration; M62.82 Rhabdomyolysis; X30.XXXA Exposure to excessive natural heat, initial encounter; N19 Unspecified kidney failure; I10 Essential (primary) hypertension; F17.210 Nicotine dependence, cigarettes, uncomplicated
CPT/HCPCS: 36415; 71045; 80048; 80076; 81003; 82550; 82553; 83690; 83735; 84484; 85025; 93005; 96361; 96374; 99284; J2405; J7030

== ENCOUNTER 2019-10-03 09:37 | Emergency (ER) | payer OTHER, SELFPAY ==
[2019-10-03] MEDS ORDERED: NA CHLORIDE 0.9% 1,000 ML ONE (09:58)
[2019-10-03] MEDS ORDERED: ONDANSETRON 4 MG/2 ML VIAL ONE (09:58)
[2019-10-03 10:31] LABS: Absolute Lymphocytes (CBC) 2.4 K/uL (0.7-4.9); Basophils % 0.8 % (0-1.3); Hematocrit 42.8 % (39.6-49.0); Lymphocytes % 25.2 % (15.3-44.8); MPV 9.8 fL (7.6-11.3); RBC Red Blood Cell Count 4.48 M/uL (4.33-5.43)
[2019-10-03 10:43] LABS: ALT/SGPT 32 U/L (12-78); AST/SGOT 26 U/L (15-37); Albumin 3.8 g/dL (3.4-5.0); Alkaline Phosphatase 75 U/L (45-117); BUN Blood Urea Nitrogen 15 mg/dL (7-18); Bicarbonate 28 mmol/L (21-32); Bilirubin Direct 0.1 mg/dL (0-0.2); Bilirubin Total 0.2 mg/dL (0.2-1.0); Glucose Level 147 mg/dL (74-106); Potassium 3.7 mmol/L (3.5-5.1); Protein, Total 7.2 g/dL (6.4-8.2); Sodium Level 142 mmol/L (136-145)
[2019-10-03 10:48] LABS: Protime INR 0.88
[2019-10-03] MEDS ORDERED: PROMETHAZINE 25 MG/ML VIAL ONE (10:53)
[2019-10-03] MEDS ORDERED: DIAZEPAM 10 MG/2 ML INJ SYRINGE ONE (10:53)
[2019-10-03 10:54] LABS: Urine Blood NEGATIVE (NEG); Urine Glucose NEGATIVE (NEG); Urine Protein NEGATIVE (NEG); Urine Specific Gravity 1.025 (1.005-1.030)
[2019-10-03 11:02] LABS: Barbiturates NEGATIVE (NEGATIVE); Benzodiazepines NEGATIVE (NEGATIVE); Cocaine POSITIVE (NEGATIVE); METHAMPHETAM NEGATIVE (NEGATIVE); Methadone NEGATIVE (NEGATIVE); Opiates NEGATIVE (NEGATIVE); Phencyclidine NEGATIVE (NEGATIVE); THC Cannibis NEGATIVE (NEGATIVE)
--- NOTE | 2019-10-03 12:29 | ER ---
Nurse's Notes [facility] Name: Bruce Oswald Age: 39 yrs Sex: Male : 1980 Arrival Date: 10/03/2019 Time: 09:40 Bed 20 Private MD: Diagnosis: Nausea and vomiting;Weakness;Substance abuse: Cocaine Presentation: 10/03 09:40 Presenting complaint: EMS states: N/V after drinking bad milk last night. Denies hb pain/fever. Zofran 4mg IVP administered to 20g [employer]. Transition of care: patient was not received from another setting of care. Onset of symptoms was October 02, 2019. Risk Assessment: Do you want to hurt yourself or someone else? Patient reports no desire to harm self or others. Initial Sepsis Screen: Does the patient meet any 2 criteria? No. Patient's initial sepsis screen is negative. Care prior to arrival: Medication(s) given: zofran 4 mg, IV initiated. 20 GA, in the right antecubital area. 09:40 Method Of Arrival: EMS: [facility] 09:40 Acuity: ZENON 3 hb 10:42 Initial Sepsis Screen: Does the patient have a suspected source of infection? No. ae4 Patient's initial sepsis screen is negative. Triage Assessment: 10:00 General: Appears distressed, uncomfortable, slender, unkempt, Behavior is cooperative, ae4 agitated, anxious, restless. General: Patient states " I ain't going to lie, last night is the first time I did drugs." Patient states he "snorted powder" but does not know what it was.. Pain: Complains of pain in abdomen. EENT: No signs and/or symptoms were reported regarding the EENT system. Neuro: Level of Consciousness is awake, alert, obeys commands, Oriented to person, place, situation, Appropriate for age. Cardiovascular: Heart tones S1 S2 present. Respiratory: Airway is patent Respiratory effort is even, unlabored, shallow, Breath sounds are clear bilaterally. GI: Pt is actively vomiting bile, mucous. Reports lower abdominal pain, upper abdominal pain, nausea, vomiting. : Urine is clear. Derm: Skin is diaphoretic, Skin is normal. Musculoskeletal: No signs and/or symptoms reported regarding the musculoskeletal system. Historical: - Allergies: 09:42 NKDA; hb - Home Meds: 09:42 None [Active]; hb - PMHx: 09:42 Asthma; Back pain; Hypertension; hb - PSHx: :42 None; hb - Immunization history:: Adult Immunizations up to date. - Social history:: Smoking status: Patient uses tobacco products, smokes two packs cigarettes per day. - Ebola Screening: : No symptoms or risks identified at this time. Screenin:42 Abuse screen: Denies threats or abuse. Denies injuries from another. Nutritional hb screening: No deficits noted. Tuberculosis screening: No symptoms or risk factors identified. Fall Risk None identified. Assessment: 10:08 Reassessment: During medication administration, patient was fidgeting frequently, ae4 patient was diaphoretic and IV to the right AC became dislodged. New IV placed, 20 G to the right AC. 10:47 Reassessment: pt is thrashing in bed, IVcomes out again. pt is making himself vomit. ch Vital Signs: 09:42 BP 120 / 69; Pulse 63; Resp 16; Temp 97.8; Pulse Ox 100% on R/A; Weight 65.77 kg; hb Height 5 ft. 9 in. (175.26 cm); Pain 0/10; 10:45 BP 146 / 95; Pulse 70; Resp 19; Pulse Ox 100% on R/A; ae4 12:06 BP 140 / 95; Pulse 77; Resp 15; Pulse Ox 98% on R/A; ae4 09:42 Body Mass Index 21.41 (65.77 kg, 175.26 cm) ED Course: 09:40 Patient arrived in ED. hb 09:42 Triage completed. hb 09:42 Harshad Lopez MD is Attending Physician. kdr 09:42 Arm band placed on. hb 09:54 Ned Alcaraz RN is Primary Nurse. ae4 10:00 Bed in low position. Call light in reach. Side rails up X2. bus driver/monitor on. Pulse ae4 ox on. NIBP on. Warm blanket given. 10:38 Urine collected: clean catch specimen, clear, josé colored. jb1 10:48 Inserted saline lock: 18 gauge in left forearm, using aseptic technique. ch 12:55 No provider procedures requiring assistance completed. IV discontinued, intact, ae4 bleeding controlled, No redness/swelling at site. Pressure dressing applied. Administered Medications: 10:05 Drug: NS 0.9% 1000 ml Route: IV; Rate: 1 bolus; Site: right antecubital; ae4 11:39 Follow up: IV Status: Completed infusion ae4 10:05 Drug: Zofran 4 mg Route: IVP; Site: right antecubital; ae4 11:37 Follow up: Response: Nausea is decreased ae4 10:57 Drug: Valium 5 mg Route: IVP; Site: left forearm; ch 11:38 Follow up: Response: RASS: Drowsy (-1); patient appears more relaxed. ae4 10:58 Drug: Phenergan 12.5 mg Route: IVP; Site: left forearm; ch 11:37 Follow up: Response: Nausea is decreased; Patient is resting with eyes closed, ae4 respirations even and unlabored. Intake: Outcome: 12:28 Discharge ordered by . kdr 12:55 Discharged to home ambulatory. ae4 12:55 Condition: stable 12:55 Discharge instructions given to patient, Instructed on discharge instructions, follow up and referral plans. medication usage, Demonstrated understanding of instructions, Prescriptions given X 1. 12:55 Patient left the ED. ae4 Signatures: Kwadwo Fitzgerald1 Angeles Gibbons, RN RN Harshad Lopez MD MD [facility] Avelina Mcfadden RN RN Ned Alcaraz RN RN ae4
--- NOTE | 2019-10-03 12:30 | EDPHYS ---
Physician Documentation [facility] Name: Bruce Oswald Age: 39 yrs Sex: Male : 1980 Arrival Date: 10/03/2019 Time: 09:40 Bed 20 Private MD: ED Physician Harshad Lopez HPI: 10/03 13:05 This 39 yrs old Black Male presents to ER via EMS with complaints of Nausea/Vomiting. kdr 13:05 The patient presents to the emergency department with nausea, vomiting, Onset: The kdr symptoms/episode began/occurred gradually, last night. Possible causes: bad food exposure, milk, flare up of bowel problem, irritable bowel disease, Cocaine use. The symptoms are aggravated by nothing. The symptoms are alleviated by nothing. Associated signs and symptoms: Pertinent positives: nausea, vomiting, Pertinent negatives: abdominal pain, anorexia, belching, constipation, diarrhea, dysuria, fever, flatulence, GI bleeding, hematuria. Severity of symptoms: At their worst the symptoms were mild in the emergency department the symptoms have improved. The patient has experienced similar episodes in the past. 15:21 The patient has not recently seen a physician. The patient has been seen here kdr previously for substance abuse issues but thinks he may have drank some bad milk last night. Historical: - Allergies: 09:42 NKDA; hb - Home Meds: 09:42 None [Active]; hb - PMHx: 09:42 Asthma; Back pain; Hypertension; hb - PSHx: 09:42 None; hb - Immunization history:: Adult Immunizations up to date. - Social history:: Smoking status: Patient uses tobacco products, smokes two packs cigarettes per day. - Ebola Screening: : No symptoms or risks identified at this time. ROS: 15:21 Constitutional: Negative for fever, chills, and weight loss, Eyes: Negative for injury, kdr pain, redness, and discharge, ENT: Negative for injury, pain, and discharge, Neck: Negative for injury, pain, and swelling, Cardiovascular: Negative for chest pain, palpitations, and edema, Respiratory: Negative for shortness of breath, cough, wheezing, and pleuritic chest pain, Back: Negative for injury and pain, : Negative for injury, bleeding, discharge, and swelling, MS/Extremity: Negative for injury and deformity, Skin: Negative for injury, rash, and discoloration, Neuro: Negative for headache, weakness, numbness, tingling, and seizure activity. Psych: Negative for depression, anxiety, suicide ideation, homicidal ideation, and hallucinations, Allergy/Immunology: Negative for hives, rash, and allergies, Endocrine: Negative for neck swelling, polydipsia, polyuria, polyphagia, and marked weight changes, Hematologic/Lymphatic: Negative for swollen nodes, abnormal bleeding, and unusual bruising. 15:21 Abdomen/GI: Positive for abdominal pain, nausea and vomiting, diarrhea, Negative for constipation, black/tarry stool, rectal pain, rectal bleeding, bowel incontinence. Exam: 15:21 Constitutional: This is a well developed, well nourished patient who is awake, alert, kdr and in no acute distress. Head/Face: Normocephalic, atraumatic. Eyes: Pupils equal round and reactive to light, extra-ocular motions intact. Lids and lashes normal. Conjunctiva and sclera are non-icteric and not injected. Cornea within normal limits. Periorbital areas with no swelling, redness, or edema. Neck: Trachea midline, no thyromegaly or masses palpated, and no cervical lymphadenopathy. Supple, full range of motion without nuchal rigidity, or vertebral point tenderness. No Meningismus. Chest/axilla: Normal chest wall appearance and motion. Nontender with no deformity. No lesions are appreciated. Cardiovascular: Regular rate and rhythm with a normal S1 and S2. No gallops, murmurs, or rubs. Normal PMI, no JVD. No pulse deficits. Respiratory: Lungs have equal breath sounds bilaterally, clear to auscultation and percussion. No rales, rhonchi or wheezes noted. No increased work of breathing, no retractions or nasal flaring. Abdomen/GI: Soft, non-tender, with normal bowel sounds. No distension or tympany. No guarding or rebound. No evidence of tenderness throughout. Back: No spinal tenderness. No costovertebral tenderness. Full range of motion. Skin: Warm, dry with normal turgor. Normal color with no rashes, no lesions, and no evidence of cellulitis. MS/ Extremity: Pulses equal, no cyanosis. Neurovascular intact. Full, normal range of motion. Neuro: Awake and alert, GCS 15, oriented to person, place, time, and situation. Cranial nerves II-XII grossly intact. Motor strength 5/5 in all extremities. Sensory grossly intact. Cerebellar exam normal. Normal gait. Psych: Awake, alert, with orientation to person, place and time. Behavior, mood, and affect are within normal limits. Vital Signs: 09:42 BP 120 / 69; Pulse 63; Resp 16; Temp 97.8; Pulse Ox 100% on R/A; Weight 65.77 kg; hb Height 5 ft. 9 in. (175.26 cm); Pain 0/10; 10:45 BP 146 / 95; Pulse 70; Resp 19; Pulse Ox 100% on R/A; ae4 12:06 BP 140 / 95; Pulse 77; Resp 15; Pulse Ox 98% on R/A; ae4 09:42 Body Mass Index 21.41 (65.77 kg, 175.26 cm) hb MDM: 12:28 Patient medically screened. kdr 15:21 Data reviewed: vital signs, nurses notes, lab test result(s), radiologic studies. kdr Counseling: I had a detailed discussion with the patient and/or guardian regarding: the historical points, exam findings, and any diagnostic results supporting the discharge/admit diagnosis, lab results, radiology results, the need for outpatient follow up. ED course: The patient as feeling better after the initial interventions and was discharged in stable condition - improved. 10/03 09:42 Order name: Acetaminophen; Complete Time: 10:54 kdr 10/03 09:42 Order name: Basic Metabolic Panel; Complete Time: 10:54 kdr 10/03 09:42 Order name: CBC with Diff; Complete Time: 10:54 kdr 10/03 09:42 Order name: ETOH Level; Complete Time: 10:54 kdr 10/03 09:42 Order name: Hepatic Function; Complete Time: 10:54 kdr 10/03 09:42 Order name: PT-INR; Complete Time: 10:54 kdr 10/03 09:42 Order name: Ptt, Activated; Complete Time: 10:54 kdr 10/03 09:42 Order name: Salicylate; Complete Time: 11:42 kdr 10/03 09:42 Order name: Urine Drug Screen; Complete Time: 11:42 kdr 10/03 10:38 Order name: Urine Dipstick--Ancillary (enter results); Complete Time: 11:42 bd 10/03 09:42 Order name: IV Saline Lock; Complete Time: 10: kdr 10/03 09:42 Order name: Labs collected and sent; Complete Time: : kdr 10/03 09:42 Order name: Urine Dipstick-Ancillary (obtain specimen); Complete Time: 10:38 kdr Administered Medications: 10:05 Drug: NS 0.9% 1000 ml Route: IV; Rate: 1 bolus; Site: right antecubital; ae4 11:39 Follow up: IV Status: Completed infusion ae4 10:05 Drug: Zofran 4 mg Route: IVP; Site: right antecubital; ae4 11:37 Follow up: Response: Nausea is decreased ae4 10:57 Drug: Valium 5 mg Route: IVP; Site: left forearm; ch 11:38 Follow up: Response: RASS: Drowsy (-1); patient appears more relaxed. ae4 10:58 Drug: Phenergan 12.5 mg Route: IVP; Site: left forearm; ch 11:37 Follow up: Response: Nausea is decreased; Patient is resting with eyes closed, ae4 respirations even and unlabored. Disposition: 10/03/19 12:28 Discharged to Home. Impression: Nausea and vomiting, Weakness, Substance abuse: Cocaine. - Condition is Stable. - Discharge Instructions: Substance Use Disorder, Nausea and Vomiting, Adult, Tfcw-ev-[id number], Weakness, Llyc-ji-Vdxy. - Prescriptions for promethazine 25 mg Oral Tablet - take 1 tablet by ORAL route every 6 hours As needed; 10 tablet. - Medication Reconciliation Form, Thank You Letter, Antibiotic Education, Prescription Opioid Use form. - Follow up: Private Physician; When: 2 - 3 days; Reason: If symptoms return, Further diagnostic work-up, Recheck today's complaints, Continuance of care, Re-evaluation by your physician. - Problem is new. - Symptoms are resolved. Signatures: Dispatcher [employer] EDAngeles Diego RN RN Harshad Lopez MD MD [facility] Avelina Mcfadden RN RN Ned Alcaraz RN RN ae4 Corrections: (The following items were deleted from the chart) 12:55 12:28 10/03/2019 12:28 Discharged to Home. Impression: Nausea and vomiting; Weakness; ae4 Substance abuse: Cocaine. Condition is Stable. Forms are Medication Reconciliation Form, Thank You Letter, Antibiotic Education, Prescription Opioid Use. Follow up: Private Physician; When: 2 - 3 days; Reason: If symptoms return, Further diagnostic work-up, Recheck today's complaints, Continuance of care, Re-evaluation by your physician. Problem is new. Symptoms are resolved. kdr
[2019-10-03 13:06] VITALS: TEMP 97.8
[2019-10-03 13:09] VITALS: BP 140/95; O2SAT 98
== END 2019-10-03 12:55 | disposition home or self-care (01) ==
LOC: ER 09:37
DX: F14.10 Cocaine abuse, uncomplicated (principal); R53.1 Weakness; F17.210 Nicotine dependence, cigarettes, uncomplicated; I10 Essential (primary) hypertension
CPT/HCPCS: 36415; 80048; 80076; 80307; 80320; 80329; 81003; 85025; 85610; 85730; 99284; J2405; J2550; J3360; J7030

== ENCOUNTER 2020-12-01 02:36 | Emergency (ER) | payer OTHER, SELFPAY ==
--- OUTSIDE RECORDS SUMMARY | 2020-12-01 02:39 | XMS REPORT | Continuity of Care Document ---
:1980 Author Organization [facility] t Address [address] [place] [address] Care Team Providers Name Role Phone Hue Courtney MD Attending Clinician Tai ROSALES Attending Clinician Richard Attending Clinician Shantal Brink NP Attending Clinician Paulino ROSALES Attending Clinician Tia ROSALES Admitting Clinician Paulino ROSALES Admitting Clinician Problems This patient has no known problems. Allergies, Adverse Reactions, Alerts This patient has no known allergies or adverse reactions. Medications This patient has no known medications. Procedures This patient has no known procedures. Encounters Start End Encounter Admission Attending Care Care Encounter Source Date/Time Date/Time Type Type Clinicians Facility Department ID 2020-04-17 2020-04-18 Emergency Allen Courtney [facility] [id number] 06:30:30 11:35:00 Deepak Weber [id number] [place] [id number] [place] [id number] 2020-04-14 2020-04-14 Telephone BHAVIN Ramos [id number] 00:00:00 00:00:00 Sarah HICKS [id number] [facility] [id number] 2020-04-07 2020-04-09 Emergency Yancy Brink [facility] 1.2.840 .114 [id number] 19:37:02 10:30:00 Mike Bob [id number] [place] [id number] [place] [id number] Results This patient has no known results.
[2020-12-01] MEDS ORDERED: NA CHLORIDE 0.9% 1,000 ML ONE ×2 (03:54→08:07)
[2020-12-01] MEDS ORDERED: ONDANSETRON 4 MG/2 ML VIAL ONE (03:54)
[2020-12-01 04:13] LABS: Absolute Lymphocytes (CBC) 4.5 K/uL (0.7-4.9); Basophils % 0.8 % (0-1.3); Hematocrit 47.7 % (39.6-49.0); Lymphocytes % 22.6 % (15.3-44.8); MPV 9.9 fL (7.6-11.3); RBC Red Blood Cell Count 5.15 M/uL (4.33-5.43)
[2020-12-01 04:18] LABS: Albumin 4.2 g/dL (3.4-5.0); Bilirubin Direct 0.1 mg/dL (0-0.2); Bilirubin Total 0.4 mg/dL (0.2-1.0); Potassium 3.8 mmol/L (3.5-5.1); Protein, Total 8.6 g/dL (6.4-8.2)
[2020-12-01] MEDS ORDERED: PROMETHAZINE INJ 25 MG/ML AMP ONE (04:45)
[2020-12-01 05:11] LABS: Barbiturates NEGATIVE (NEGATIVE); Benzodiazepines NEGATIVE (NEGATIVE); Cocaine POSITIVE (NEGATIVE); METHAMPHETAM NEGATIVE (NEGATIVE); Methadone NEGATIVE (NEGATIVE); Opiates NEGATIVE (NEGATIVE); Phencyclidine NEGATIVE (NEGATIVE); THC Cannibis POSITIVE (NEGATIVE)
[2020-12-01 06:11] LABS: Urine Blood NEGATIVE (NEG); Urine Glucose NEGATIVE (NEG); Urine Protein 1+ (NEG); Urine Specific Gravity >1.030 (1.005-1.030); Urine pH 5.5 (5.0-7.0)
--- NOTE | 2020-12-01 08:32 | ER ---
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 Has been having nausea and vomiting with abdominal cramps. Smoke marijuana today. Coronavirus screen: Client denies travel out of the [place] in the last 14 days. nausea, vomiting. Client presents with at least one sign or symptom that may indicate coronavirus-19. Standard/surgical mask placed on the client. Provider contacted for isolation considerations. Ebola Screen: Patient denies exposure to infectious person. Patient denies travel to an Ebola-affected area in the 21 days before illness onset. Patient positive for the following Ebola Virus Disease associated symptoms: vomiting, abdominal pain, (+) Ebola Screening Standard Precautions initiated. Initial Sepsis Screen: Does the patient meet any 2 criteria? No. Patient's initial sepsis screen is negative. Does the patient have a suspected source of infection? No. Patient's initial sepsis screen is negative. Risk Assessment: Do you want to hurt yourself or someone else? Patient reports no desire to harm self or others. Onset of symptoms was November 30, 2020. 03:00 Method Of Arrival: Ambulatory sf 03:00 Acuity: ZENON 3 sf Triage Assessment: 03:03 General: Appears uncomfortable, ill, unkempt, Behavior is cooperative, anxious, Reports sf chills for feeling ill for. Pain: Complains of pain in abdomen Pain currently is 7 out of 10 on a pain scale. Quality of pain is described as crampy. Neuro: No deficits noted. Level of Consciousness is awake, alert, obeys commands, Oriented to person, place, time, situation, Appropriate for age. Cardiovascular: No deficits noted. Capillary refill < 3 seconds. Respiratory: No deficits noted. Airway is patent Respiratory effort is even, unlabored, Respiratory pattern is regular, symmetrical. GI: Abdomen is non-distended, Reports lower abdominal pain, upper abdominal pain, nausea, vomiting, Patient currently denies diarrhea. : No signs and/or symptoms were reported regarding the genitourinary system. Derm: Skin is diaphoretic, Skin temperature is cool. Historical: - Allergies: 03:03 NKDA; sf - Home Meds: 03:03 None [Active]; sf - PMHx: 03:03 Asthma; Hypertension; Back pain; sf - PSHx: 03:03 None; sf - Immunization history:: Adult Immunizations unknown. - Social history:: Smoking status: Patient denies any tobacco usage or history of. Patient uses street drugs, marijuana, Patient/guardian denies using alcohol, IV drugs. Screenin:06 Abuse screen: Denies threats or abuse. Denies injuries from another. Nutritional sf screening: No deficits noted. Tuberculosis screening: No symptoms or risk factors identified. Never had TB. Possible symptoms: None Risk factors: None. Fall Risk None identified. No fall in past 12 months (0 pts). No secondary diagnosis (0 pts). No IV (0 pts). Ambulatory Aid- None/Bed Rest/Nurse Assist (0 pts). Gait- Normal/Bed Rest/Wheelchair (0 pts) Mental Status- Oriented to own ability (0 pts). Total Marte Fall Scale indicates No Risk (0-24 pts). Assessment: 03:07 Reassessment: SEE TRIAGE NOTE. sf 03:23 Reassessment: To room to insert IV, patient request to use bathroom first due to having sf diarrhea; had previously denied having diarrhea. 03:41 Reassessment: Patient requested to be left unhooked from monitors and everything in sf case he needs to use the restroom quickly. Given a urinal for sample. 04:20 Reassessment: No changes from previously documented assessment. Patient and/or family sf updated on plan of care and expected duration. Pain level reassessed. Patient states symptoms have not improved. 05:52 Reassessment: No changes from previously documented assessment. Patient and/or family sf updated on plan of care and expected duration. Pain level reassessed. Patient still diaphoretic, still nauseated with intermittent vomiting and dry heaves. Patient states symptoms have not improved. 07:00 Reassessment: RECD REPORT FROM MARK ANTHONY MAURICIO. 40YO BM P/W VOMITING AND CP. PT DIAPHORETIC, bp CT RESULTS PENDING. GI: Abdomen is non-distended. 08:06 Reassessment: No changes from previously documented assessment. Patient and/or family bp updated on plan of care and expected duration. Pain level reassessed. IVF INFUSING. 08:45 Reassessment: D/C ON HOLD FOR IVF COMPLETION. bp 09:17 Reassessment: PT D/C HOME VIA W/C, DX WITH DEHYDRATION. bp Vital Signs: 03:00 BP 189 / 104 LA (auto/); Pulse 80 MON; Resp 20 S; Temp 97.8(O); Pulse Ox 100% on R/A; sf Weight 72.57 kg; Height 5 ft. 9 in. (175.26 cm); Pain 7/10; 05:51 BP 168 / 96; Pulse 80; Resp 18; Pulse Ox 98% ; sf 07:00 BP 174 / 90; Pulse 82; Resp 17; Pulse Ox 98% ; bp 08:06 BP 158 / 101; Pulse 69; Resp 16; Pulse Ox 96% ; bp 08:45 BP 153 / 83; Pulse 75; Resp 16; Pulse Ox 95% ; bp 09:17 BP 166 / 78; Pulse 75; Resp 17; Temp 97.8; Pulse Ox 100% ; bp 03:00 Body Mass Index 23.63 (72.57 kg, 175.26 cm) ED Course: 02:37 Patient arrived in ED. am2 02:55 Evaristo Bell MD is Attending Physician. tw4 02:59 Michael Soto, RN is Primary Nurse. sf 03:03 Triage completed. sf 03:03 Arm band placed on right wrist. Emesis basin given. sf 03:06 Patient has correct armband on for positive identification. Placed in gown. Bed in low sf position. Call light in reach. Side rails up X 1. Pulse ox on. NIBP on. Door closed. Noise minimized. Lights dimmed. Warm blanket given. Verbal reassurance given. 03:35 Initial lab(s) drawn, by me, sent to lab. Inserted saline lock: 20 gauge in right sf antecubital area, using aseptic technique. Blood collected. 04:20 Urine collected: clean catch specimen, clear, Amount Voided: 250mL. sf 04:23 Urine Drug Screen Sent. sf 04:32 CT Abd/Pelvis - IV Contrast Only Sent. sf 04:33 Urine Dipstick--Ancillary (enter results) Sent. sf 05:07 CT Abd/Pelvis - IV Contrast Only In Process Unspecified. EDMS 07:11 Report given to LULY Mcclure. sf 07:17 Attending Physician role handed off by Evaristo Bell MD rn 07:17 Hay Saha MD is Attending Physician. rn 07:18 Ren Means RN is Primary Nurse. bp 09:19 No provider procedures requiring assistance completed. IV discontinued, intact, bp bleeding controlled, No redness/swelling at site. Pressure dressing applied. Administered Medications: 03:40 Drug: NS 0.9% 1000 ml Route: IV; Rate: 1 bolus; Site: right antecubital; sf 04:30 Follow up: IV Status: Completed infusion; IV Intake: 1000ml sf 04:30 Follow up: Response: No adverse reaction sf 03:40 Drug: Zofran (Ondansetron) 4 mg Route: IVP; Site: right antecubital; sf 04:30 Follow up: Response: Nausea unchanged sf 04:30 Drug: Phenergan 25 mg Route: IVP; Site: right antecubital; sf 05:05 Follow up: Response: No adverse reaction; Nausea unchanged sf 07:30 Drug: NS 0.9% 1000 ml Route: IV; Rate: 1000 ml; Site: right antecubital; bp 09:20 Follow up: IV Status: Completed infusion; IV Intake: 1000ml bp Intake: 04:30 IV: 1000ml; Total: 1000ml. sf 09:20 IV: 1000ml; Total: 2000ml. bp Outcome: 08:32 Discharge ordered by MD. rn 09:19 Discharged to home via wheelchair. bp 09:19 Condition: stable 09:19 Discharge instructions given to patient, Instructed on discharge instructions, follow up and referral plans. Demonstrated understanding of instructions, follow-up care. 09:21 Patient left the ED. bp Signatures: Dispatcher [employer] EDMS Hay Saha MD MD rn Moreno, Amanda am2 Ren Means RN RN bp Evaristo Bell MD MD tw4 Michael Soto RN RN sf
--- NOTE | 2020-12-01 08:32 | EDPHYS ---
Physician Documentation [facility] Name: Bruce Oswald Age: 40 yrs Sex: Male : 1980 Arrival Date: 12/01/2020 Time: 02:37 Bed 18 Private MD: ED Physician Hay Saha HPI: 12/01 03:54 This 40 yrs old Black Male presents to ER via Ambulatory with complaints of Vomiting, tw4 Chest Pain, cramping. 03:54 The patient presents to the emergency department with nausea, vomiting, diarrhea. tw4 Onset: The symptoms/episode began/occurred today. Possible causes: unknown. The symptoms are aggravated by nothing. The symptoms are alleviated by nothing. Associated signs and symptoms: The patient has no apparent associated signs or symptoms. The patient has not experienced similar symptoms in the past. Historical: - Allergies: 03:03 NKDA; sf - Home Meds: 03:03 None [Active]; sf - PMHx: 03:03 Asthma; Hypertension; Back pain; sf - PSHx: 03:03 None; sf - Immunization history:: Adult Immunizations unknown. - Social history:: Smoking status: Patient denies any tobacco usage or history of. Patient uses street drugs, marijuana, Patient/guardian denies using alcohol, IV drugs. ROS: 03:54 Constitutional: Negative for fever, chills, and weight loss, Eyes: Negative for injury, tw4 pain, redness, and discharge, Neck: Negative for injury, pain, and swelling, Cardiovascular: Negative for chest pain, palpitations, and edema, Respiratory: Negative for shortness of breath, cough, wheezing, and pleuritic chest pain, Back: Negative for injury and pain, MS/Extremity: Negative for injury and deformity, Skin: Negative for injury, rash, and discoloration, Neuro: Negative for headache, weakness, numbness, tingling, and seizure. 03:54 Abdomen/GI: Positive for abdominal pain, nausea and vomiting, nausea, vomiting, and diarrhea, nausea, vomiting, diarrhea, abdominal cramps, Negative for abdominal distension, anorexia, dysphagia, hematemesis, black/tarry stool, rectal pain, rectal bleeding, bowel incontinence. Exam: 03:54 Constitutional: This is a well developed, well nourished patient who is awake, alert, tw4 and in no acute distress. Head/Face: Normocephalic, atraumatic. Chest/axilla: Normal chest wall appearance and motion. Nontender with no deformity. No lesions are appreciated. Cardiovascular: Regular rate and rhythm with a normal S1 and S2. No gallops, murmurs, or rubs. Normal PMI, no JVD. No pulse deficits. Respiratory: Lungs have equal breath sounds bilaterally, clear to auscultation and percussion. No rales, rhonchi or wheezes noted. No increased work of breathing, no retractions or nasal flaring. 03:54 Abdomen/GI: Inspection: abdomen appears normal, Bowel sounds: normal, in all quadrants, Palpation: moderate abdominal tenderness, in all quadrants. Vital Signs: 03:00 BP 189 / 104 LA (auto/); Pulse 80 MON; Resp 20 S; Temp 97.8(O); Pulse Ox 100% on R/A; sf Weight 72.57 kg; Height 5 ft. 9 in. (175.26 cm); Pain 7/10; 05:51 BP 168 / 96; Pulse 80; Resp 18; Pulse Ox 98% ; sf 07:00 BP 174 / 90; Pulse 82; Resp 17; Pulse Ox 98% ; bp 08:06 BP 158 / 101; Pulse 69; Resp 16; Pulse Ox 96% ; bp 08:45 BP 153 / 83; Pulse 75; Resp 16; Pulse Ox 95% ; bp 09:17 BP 166 / 78; Pulse 75; Resp 17; Temp 97.8; Pulse Ox 100% ; bp 03:00 Body Mass Index 23.63 (72.57 kg, 175.26 cm) MDM: 03:54 Differential diagnosis: Nonspecific abd pain, gastritis, cholecystitis. Data reviewed: tw4 vital signs, nurses notes. Counseling: I had a detailed discussion with the patient and/or guardian regarding: the historical points, exam findings, and any diagnostic results supporting the discharge/admit diagnosis, smoking cessation. 04:06 Patient medically screened. tw4 08:30 Response to treatment: the patient's symptoms have markedly improved after treatment. rn Special discussion: I discussed with the patient/guardian in detail that at this point there is no indication for admission to the hospital. It is understood, however, that if the symptoms persist or worsen the patient needs to return immediately for re-evaluation. ED course: Pt feels much better, ct neg for acute findings, stable vitals, no longer diaphoretic, will dc home with return precautions.. 12/01 02:50 Order name: Basic Metabolic Panel; Complete Time: 06:57 tw4 12/01 06:57 Interpretation: Normal except: GFR 51; CRE 1.80; BUN 26; GLUC 156; NA 135. 12/01 02:50 Order name: CBC with Diff; Complete Time: 06:57 12/01 06:58 Interpretation: Normal except: WBC 19.70. 12/01 02:50 Order name: Hepatic Function; Complete Time: 06:57 12/01 06:58 Interpretation: Normal except: TP 8.6; A/G 1.0; GLOB 4.4. 12/01 02:50 Order name: Lipase; Complete Time: 06:57 12/01 06:58 Interpretation: Normal except: LIP 60. 12/01 04:18 Order name: Urine Drug Screen 12/01 04:18 Order name: Urine Drug Screen; Complete Time: 06:57 EDMS 12/01 06:58 Interpretation: Normal except: BLANCA POSITIVE; THC POSITIVE. 12/01 04:18 Order name: CT Abd/Pelvis - IV Contrast Only 12/01 04:23 Order name: Urine Dipstick--Ancillary (enter results) bb 12/01 04:24 Order name: Urine Dipstick-Ancillary; Complete Time: 06:57 EDMS 12/01 07:16 Order name: CK rn 12/01 07:17 Order name: Creatine Phosphokinase; Complete Time: 07:56 EDMS 12/01 02:50 Order name: IV Saline Lock; Complete Time: 03:47 tw4 12/01 02:50 Order name: Labs collected and sent; Complete Time: 03:47 tw4 Administered Medications: 03:40 Drug: NS 0.9% 1000 ml Route: IV; Rate: 1 bolus; Site: right antecubital; sf 04:30 Follow up: IV Status: Completed infusion; IV Intake: 1000ml sf 04:30 Follow up: Response: No adverse reaction sf 03:40 Drug: Zofran (Ondansetron) 4 mg Route: IVP; Site: right antecubital; sf 04:30 Follow up: Response: Nausea unchanged sf 04:30 Drug: Phenergan 25 mg Route: IVP; Site: right antecubital; sf 05:05 Follow up: Response: No adverse reaction; Nausea unchanged sf 07:30 Drug: NS 0.9% 1000 ml Route: IV; Rate: 1000 ml; Site: right antecubital; bp 09:20 Follow up: IV Status: Completed infusion; IV Intake: 1000ml bp Disposition: 12/01/20 08:32 Discharged to Home. Impression: Dehydration, Unspecified abdominal pain. - Condition is Stable. - Discharge Instructions: Abdominal Pain, Adult, Dehydration, Adult, Pain Without a Known Cause. - Medication Reconciliation Form, Thank You Letter, Antibiotic Education, Prescription Opioid Use, Work release form form. - Follow up: Private Physician; When: As needed; Reason: Recheck today's complaints, Re-evaluation by your physician. - Problem is new. - Symptoms have improved. Signatures: Dispatcher [employer] EDMS Hay Saha MD MD rn Peltier, Brian, RN RN bp Wadley, Terrence, MD MD tw4 Michael Soto RN RN sf Corrections: (The following items were deleted from the chart) 09: 08:32 12/01/2020 08:32 Discharged to Home. Impression: Dehydration; Unspecified bp abdominal pain. Condition is Stable. Forms are Medication Reconciliation Form, Thank You Letter, Antibiotic Education, Prescription Opioid Use. Follow up: Private Physician; When: As needed; Reason: Recheck today's complaints, Re-evaluation by your physician. Problem is new. Symptoms have improved. rn
[2020-12-01 10:08] VITALS: TEMP 97.8
[2020-12-01 10:14] VITALS: BP 166/78; O2SAT 100
--- NOTE | 2020-12-01 11:01 | RAD REPORT ---
EXAM DESCRIPTION: CT - Abdomen Pelvis W Contrast - 12/01/2020 6:59 am CLINICAL HISTORY: The patient is 40 years old and is Male; ABD PAIN TECHNIQUE: Axial computed tomography images of the abdomen and pelvis with intravenous contrast. S agittal and coronal reformatted images were created and reviewed. This CT exam was performed using one or more of the following dose reduction techniques: automated exposure control, adjustment of t he mA and/or kV according to patient size, and/or use of iterative reconstruction technique. COMPARISON: No relevant prior studies available. FINDINGS: LUNG BASES: Unremarkable. No mass. No consolidation. ABDOMEN: LIVER: Unremarkable. No mass. GALLBLADDER AND BILE DUCTS: The gallbladder is physiologically distended. No calcified gallstone s or ductal dilatation is seen. PANCREAS: No ductal dilation. No mass. SPLEEN: Unremarkable. ADRENALS: Unremarkable. No mass. KIDNEYS AND URETERS: Unremarkable. The kidneys enhance symmetrically. No obstructing renal or ur eteral calculus is seen. No hydronephrosis or hydroureter. No perinephric fluid or stranding. STOMACH AND BOWEL: The stomach is distended with fluid and air. The small bowel is normal in shobha iber, the majority of the proximal small bowel is decompressed. A few distal small bowel loops specif ically within the bowel within the lower abdomen. A moderate amount of stool is present throughout th e colon. There is no mucosal thickening or evidence of bowel obstruction. PELVIS: APPENDIX: The appendix is normal in caliber without surrounding inflammation. BLADDER: Unremarkable. No mass. REPRODUCTIVE: Unremarkable as visualized. ABDOMEN and PELVIS: INTRAPERITONEAL SPACE: Unremarkable. No free air. No significant fluid collection. BONES/JOINTS: No acute fracture. SOFT TISSUES: The soft tissues are normal. VASCULATURE: Unremarkable. No abdominal aortic aneurysm. LYMPH NODES: Unremarkable. No enlarged lymph nodes. IMPRESSION: No acute findings on this contrasted CT of the abdomen and pelvis to explain the patient 's symptoms. Electronically signed by: Tracy Gamez MD 12/01/2020 6:53 AM HOUSE SHORER Due to temporary technical issues with the PACS/Fluency reporting system, reports are being signed by the in house radiologist without review as a courtesy to ensure prompt reporting. The interpreting r adiologist is fully responsible for the content of the report.
== END 2020-12-01 09:21 | disposition home or self-care (01) ==
LOC: ER 02:36
DX: E86.0 Dehydration (principal); R11.2 Nausea with vomiting, unspecified; I10 Essential (primary) hypertension
CPT/HCPCS: 36415; 74177; 80048; 80076; 80307; 81003; 82550; 83690; 85025; 96361; 96374; 96375; 99284; J2405; J2550; J7030; Q9967

== ENCOUNTER 2021-02-19 05:00 | Emergency (ER) | payer SELFPAY ==
--- OUTSIDE RECORDS SUMMARY | 2021-02-19 05:03 | XMS REPORT | Continuity of Care Document ---
:1980 Author Organization [facility] t Address [address] [place] [place] [address] Care Team Providers Name Role Phone Hue Courtney MD Attending Clinician Tia ROSALES Attending Clinician Richard Attending Clinician Shantal [...] Department ID 2020-04-17 2020-04-18 Emergency Allen Courtney [facility] [id number] .114 [id number] 06:30:30 11:35:00 Deepak Weber [id number] [place] [id number] [place] [id number] [id number] 2020-04-14 2020-04-14 Telephone BHAVIN Ramos [id number] 00:00:00 00:00:00 Sarah HICKS [id number] [facility] [id number] 2020-04-07 2020-04-09 Emergency Yancy Brink [facility] 1.2.840 .114 [id number] 19:37:02 10:30:00 Mike Bob [id number] [place] [id number] [place] [id number] [id number] Results This patient has no known results.
[2021-02-19] MEDS ORDERED: NA CHLORIDE 0.9% 1,000 ML ONE ×2 (05:23→06:28)
[2021-02-19] MEDS ORDERED: ONDANSETRON 4 MG/2 ML VIAL ONE (05:23)
[2021-02-19] MEDS ORDERED: FAMOTIDINE 20 MG/2 ML VIAL IV ONE (05:23)
[2021-02-19 05:26] LABS: Absolute Lymphocytes (CBC) 6.9 K/uL (0.7-4.9); Basophils % 1.1 % (0-1.3); Hematocrit 43.7 % (39.6-49.0); Lymphocytes % 61.4 % (15.3-44.8); MPV 10.4 fL (7.6-11.3); RBC Red Blood Cell Count 4.55 M/uL (4.33-5.43)
[2021-02-19 05:57] LABS: ALT/SGPT 25 U/L (12-78); AST/SGOT 17 U/L (15-37); Albumin 3.6 g/dL (3.4-5.0); Alkaline Phosphatase 68 U/L (45-117); BUN Blood Urea Nitrogen 16 mg/dL (7-18); Bicarbonate 27 mmol/L (21-32); Bilirubin Direct < 0.1 mg/dL (0-0.2); Bilirubin Total 0.2 mg/dL (0.2-1.0); Glucose Level 106 mg/dL (74-106); Lipase 127 U/L (73-393); Potassium 3.5 mmol/L (3.5-5.1); Sodium Level 141 mmol/L (136-145)
[2021-02-19] MEDS ORDERED: METOCLOPRAMIDE 10 MG/2mL INJ ONE (06:06)
[2021-02-19 06:09] LABS: Urine Blood Trace-intact (Negative); Urine Glucose Negative (Negative); Urine Protein Negative (Negative); Urine Specific Gravity 1.025 (1.005-1.030); Urine pH 7.5 (5.0-7.0)
[2021-02-19 06:22] LABS: Blood Morphology Comment NOT SEEN (NOT SEEN); Platelet Estimate ADEQ
[2021-02-19 06:26] LABS: Barbiturates NEGATIVE (NEGATIVE); Benzodiazepines NEGATIVE (NEGATIVE); Cocaine POSITIVE (NEGATIVE); METHAMPHETAM NEGATIVE (NEGATIVE); Methadone NEGATIVE (NEGATIVE); Opiates NEGATIVE (NEGATIVE); Phencyclidine NEGATIVE (NEGATIVE); THC Cannibis NEGATIVE (NEGATIVE)
--- NOTE | 2021-02-19 07:17 | RAD REPORT ---
EXAM DESCRIPTION: CT - Abdomen Pelvis W Contrast - 02/19/2021 7:06 am CLINICAL HISTORY: Abdominal pain COMPARISON: November 2020 TECHNIQUE: Computed axial tomography of the abdomen pelvis was obtained. 100 cc Isovue-300 was admin istered intravenously. Oral contrast was not requested which limits evaluation of bowel. All CT scans are performed using dose optimization technique as appropriate and may include automated exposure control or mA/KV adjustment according to patient size. FINDINGS: The liver, spleen, pancreas, adrenal and kidneys appear unremarkable. There is no evidence of diverticulitis. Normal appendix IMPRESSION: No acute abnormality is displayed.
--- NOTE | 2021-02-19 07:39 | RAD REPORT ---
EXAM DESCRIPTION: Taye Single View02/19/2021 7:17 am CLINICAL HISTORY: Cough COMPARISON: 2019 FINDINGS: Lungs are hyperaerated. The lungs appear clear of acute infiltrate. The heart is normal size IMPRESSION: No acute abnormalities displayed
--- NOTE | 2021-02-19 07:48 | ER ---
Nurse's Notes [facility] Name: Bruce Oswald Age: 40 yrs Sex: Male : 1980 Arrival Date: 02/19/2021 Time: 05:01 Bed 17 Private MD: Diagnosis: Vomiting;Lactose intolerance, unspecified;Cocaine abuse;Essential (primary) hypertension Presentation: 02/19 05:15 Chief complaint: Patient states: Pt bib EMS for c/o n/v that began at 0100 this am. Pt ad5 denies recent illness. Reports eating "shrimp and drank milk". Pt diaphoretic, active n/v upon arrival to ED. Coronavirus screen: Client denies travel out of the [place] in the last 14 days. At this time, the client does not indicate any symptoms associated with coronavirus-19. Ebola Screen: Patient negative for fever greater than or equal to 101.5 degrees Fahrenheit, and additional compatible Ebola Virus Disease symptoms Patient denies exposure to infectious person. Patient denies travel to an Ebola-affected area in the 21 days before illness onset. No symptoms or risks identified at this time. Initial Sepsis Screen: Does the patient meet any 2 criteria? No. Patient's initial sepsis screen is negative. Does the patient have a suspected source of infection? No. Patient's initial sepsis screen is negative. Risk Assessment: Do you want to hurt yourself or someone else? Patient reports no desire to harm self or others. Onset of symptoms was February 19, 2021 at 01:00. 05:15 Method Of Arrival: EMS ad5 05:15 Acuity: ZENON 3 ad5 Triage Assessment: 05:20 General: Appears distressed, uncomfortable, ill, unkempt, Behavior is cooperative, ad5 agitated, restless. Pain: Complains of pain in abdomen Pain currently is 5 out of 10 on a pain scale. GI: Reports upper abdominal pain, nausea, vomiting. Historical: - Allergies: 05:19 NKDA; ad5 - PMHx: 05:19 Asthma; Back pain; Hypertension; ad5 - Immunization history:: Adult Immunizations unknown. - Social history:: Smoking status: unknown. Screenin:23 Abuse screen: Denies threats or abuse. Denies injuries from another. Nutritional ad5 screening: No deficits noted. Tuberculosis screening: No symptoms or risk factors identified. Fall Risk None identified. Assessment: 05:33 General: Appears distressed, uncomfortable, ill, unkempt, Behavior is cooperative, ad5 agitated, restless. Pain: Complains of pain in abdomen Pain currently is 5 out of 10 on a pain scale. Pain began 4 hours ago. Noted to be agitated, grimacing, guarding, moaning, restless, Also complains of nausea, diaphoresis. Neuro: Level of Consciousness is awake, alert, obeys commands, Oriented to person, place, time, situation, Appropriate for age Acid Tester are equal bilaterally Moves all extremities. Gait is steady, Speech is normal, Facial symmetry appears normal. Cardiovascular: Heart tones present Capillary refill < 3 seconds JVD is absent Pulses are all present. Cardiovascular: Respiratory: No deficits noted. Airway is patent Respiratory effort is even, unlabored, Respiratory pattern is regular, symmetrical, Breath sounds are clear bilaterally. GI: Abdomen is flat, Bowel sounds present X 4 quads. Guarding noted X 4 quads. Reports upper abdominal pain, diarrhea, nausea, vomiting. : No deficits noted. EENT: No deficits noted. Derm: Skin is intact, Skin is diaphoretic, Skin is normal, Skin temperature is cool. Musculoskeletal: No deficits noted. 06:23 Reassessment: No changes from previously documented assessment. Pt reports minimal ad5 improvement in s/s. Denies pain at this time. Pt up to restroom, ambulatory with steady gait. Pt reports diarrhea and emesis, repositioned back into room 17 for comfort. Bed low and locked, bedrails up, call light within reach. Pt given warm blanket. Will continue to monitor. 07:30 Reassessment: Patient appears in no apparent distress at this time. No changes from jd3 previously documented assessment. Patient and/or family updated on plan of care and expected duration. Pain level reassessed. Patient is alert, oriented x 3, equal unlabored respirations, skin warm/dry/pink. 08:45 Reassessment: Patient appears in no apparent distress at this time. Patient and/or jd3 family updated on plan of care and expected duration. Pain level reassessed. Patient is alert, oriented x 3, equal unlabored respirations, skin warm/dry/pink. Patient states feeling better. 09:58 Reassessment: Patient appears in no apparent distress at this time. Patient and/or jd3 family updated on plan of care and expected duration. Pain level reassessed. Patient is alert, oriented x 3, equal unlabored respirations, skin warm/dry/pink. pt's called and notified of discharge. pt's reported she is on the way. Patient states feeling better. 10:15 Reassessment: Patient appears in no apparent distress at this time. Patient and/or jd3 family updated on plan of care and expected duration. Pain level reassessed. Patient is alert, oriented x 3, equal unlabored respirations, skin warm/dry/pink. Patient states feeling better. Vital Signs: 05:15 BP 184 / 118; Pulse 63; Resp 20 S; Temp 97.6(O); Pulse Ox 100% on R/A; Weight 72.57 kg; ad5 Height 5 ft. 10 in. (177.80 cm); Pain 5/10; 05:36 BP 160 / 127; Pulse 58; Resp 18 S; Pulse Ox 100% on R/A; ad5 06:30 BP 153 / 99; Pulse 53; Resp 18 S; Pulse Ox 100% on R/A; Pain 0/10; ad5 09:57 BP 143 / 96; Pulse 55; Resp 16 S; Pulse Ox 100% on R/A; jd3 05:15 Body Mass Index 22.96 (72.57 kg, 177.80 cm) ad5 ED Course: 05:01 Patient arrived in ED. ad5 05:02 Huan Sanchez MD is Attending Physician. [facility] 05:15 Ned Hernández is Primary Nurse. ad5 05:17 Triage completed. ad5 05:21 Arm band placed on right wrist. Patient placed in an exam room, on a stretcher, on ad5 youth nutritional monitor, on pulse oximetry. 05:21 No provider procedures requiring assistance completed. Initial lab(s) drawn, by wv, ad5 sent to lab. Inserted saline lock: 20 gauge in right antecubital area, using aseptic technique. 06:22 Attending Physician role handed off by Huan Sanchez MD joo 06:22 Geo Oswald MD is Attending Physician. joo 06:56 CT Abd/Pelvis - IV Contrast Only Sent. ad5 07:05 CT Abd/Pelvis - IV Contrast Only In Process Unspecified. EDMS 07:17 Chest Single View XRAY In Process Unspecified. EDMS 09:58 Patient has correct armband on for positive identification. Placed in gown. Bed in low jd3 position. Call light in reach. Side rails up X 1. Pulse ox on. NIBP on. 09:59 Primary Nurse role handed off by Ned Hernández j 09:59 Parmjit Baeza RN is Primary Nurse. jd3 10:16 IV discontinued, intact, bleeding controlled, No redness/swelling at site. Pressure jd3 dressing applied. Administered Medications: 05:22 Drug: NS 0.9% 1000 ml Route: IV; Rate: 1000 ml; Site: right antecubital; ad5 06:20 Follow up: Response: No adverse reaction; IV Status: Completed infusion; IV Intake: jd3 1000ml 05:22 Drug: Zofran (Ondansetron) 4 mg Route: IVP; Site: right antecubital; ad5 05:52 Follow up: Response: No adverse reaction; No change in condition ad5 05:22 Drug: Pepcid (famotidine) 20 mg Route: IVP; Site: right antecubital; ad5 05:52 Follow up: Response: No adverse reaction; No change in condition ad5 05:51 Drug: Reglan (metoCLOPramide) 10 mg Route: IVP; Site: right antecubital; ad5 06:57 Follow up: Response: No adverse reaction; Nausea is decreased ad5 06:20 Drug: NS 0.9% 1000 ml Route: IV; Rate: 1000 ml; Site: right antecubital; ad5 07:20 Follow up: Response: No adverse reaction; IV Status: Completed infusion jd3 Intake: 06:20 IV: 1000ml; Total: 1000ml. jd3 Outcome: 07:47 Discharge ordered by . [facility] 09:58 Condition: stable jd3 10:16 Discharged to home ambulatory, with family. jd3 10:16 Discharge instructions given to patient, Instructed on discharge instructions, follow up and referral plans. medication usage, Demonstrated understanding of instructions, follow-up care, medications, Prescriptions given X 2. 10:18 Patient left the ED. jd3 Signatures: Dispatcher [employer] EDGeo Calderon MD MD cha Davies, Jonathon, RN RN jd3 Huan Sanchez MD MD [facility] Ned Hernández ad5
--- NOTE | 2021-02-19 07:48 | EDPHYS ---
Physician Documentation [facility] Name: Bruce Oswald Age: 40 yrs Sex: Male : 1980 Arrival Date: 02/19/2021 Time: 05:01 Bed 17 Private MD: LEEROY Physician Geo Oswald HPI: 02/19 05:45 This 40 yrs old Black Male presents to ER via EMS with complaints of Nausea/Vomiting. mh7 05:45 The patient presents to the emergency department with nausea, that is moderate, mh7 vomiting, that is intermittent, described as clear fluid, diarrhea, that is intermittent. Onset: The symptoms/episode began/occurred today, at 01:00. Possible causes: bad food exposure, milk, shrimp. The symptoms are aggravated by nothing. The symptoms are alleviated by nothing. Associated signs and symptoms: Pertinent positives: diarrhea, nausea, vomiting, Pertinent negatives: abdominal pain, anorexia, belching, constipation, dysuria, fever, flatulence, GI bleeding, hematuria. Severity of symptoms: At their worst the symptoms were moderate today, in the emergency department the symptoms are unchanged. Historical: - Allergies: 05:19 NKDA; ad5 - PMHx: 05:19 Asthma; Back pain; Hypertension; ad5 - Immunization history:: Adult Immunizations unknown. - Social history:: Smoking status: unknown. ROS: 05:45 Constitutional: Negative for fever, chills, and weight loss, Eyes: Negative for injury, mh7 pain, redness, and discharge, ENT: Negative for injury, pain, and discharge, Neck: Negative for injury, pain, and swelling, Cardiovascular: Negative for chest pain, palpitations, and edema, Respiratory: Negative for shortness of breath, cough, wheezing, and pleuritic chest pain, Back: Negative for injury and pain, : Negative for injury, bleeding, discharge, and swelling, MS/Extremity: Negative for injury and deformity, Skin: Negative for injury, rash, and discoloration, Neuro: Negative for headache, weakness, numbness, tingling, and seizure, Psych: Negative for depression, anxiety, suicide ideation, homicidal ideation, and hallucinations, Allergy/Immunology: Negative for hives, rash, and allergies, Endocrine: Negative for neck swelling, polydipsia, polyuria, polyphagia, and marked weight changes, Hematologic/Lymphatic: Negative for swollen nodes, abnormal bleeding, and unusual bruising. Exam: 05:45 Head/Face: Normocephalic, atraumatic. Eyes: Pupils equal round and reactive to light, mh7 extra-ocular motions intact. Lids and lashes normal. Conjunctiva and sclera are non-icteric and not injected. Cornea within normal limits. Periorbital areas with no swelling, redness, or edema. Neck: Trachea midline, no thyromegaly or masses palpated, and no cervical lymphadenopathy. Supple, full range of motion without nuchal rigidity, or vertebral point tenderness. No Meningismus. Chest/axilla: Normal chest wall appearance and motion. Nontender with no deformity. No lesions are appreciated. Cardiovascular: Regular rate and rhythm with a normal S1 and S2. No gallops, murmurs, or rubs. Normal PMI, no JVD. No pulse deficits. Respiratory: Lungs have equal breath sounds bilaterally, clear to auscultation and percussion. No rales, rhonchi or wheezes noted. No increased work of breathing, no retractions or nasal flaring. Abdomen/GI: Soft, non-tender, with normal bowel sounds. No distension or tympany. No guarding or rebound. No evidence of tenderness throughout. Back: No spinal tenderness. No costovertebral tenderness. Full range of motion. Skin: Warm, dry with normal turgor. Normal color with no rashes, no lesions, and no evidence of cellulitis. MS/ Extremity: Pulses equal, no cyanosis. Neurovascular intact. Full, normal range of motion. Neuro: Awake and alert, GCS 15, oriented to person, place, time, and situation. Cranial nerves II-XII grossly intact. Motor strength 5/5 in all extremities. Sensory grossly intact. Cerebellar exam normal. Normal gait. Psych: Awake, alert, with orientation to person, place and time. Behavior, mood, and affect are within normal limits. 05:45 Constitutional: The patient appears in no acute distress, alert, awake, uncomfortable. 07:25 ECG was reviewed by the Attending Physician. [facility] 08:11 ECG was reviewed by the Attending Physician. [facility] Vital Signs: 05:15 BP 184 / 118; Pulse 63; Resp 20 S; Temp 97.6(O); Pulse Ox 100% on R/A; Weight 72.57 kg; ad5 Height 5 ft. 10 in. (177.80 cm); Pain 5/10; 05:36 BP 160 / 127; Pulse 58; Resp 18 S; Pulse Ox 100% on R/A; ad5 06:30 BP 153 / 99; Pulse 53; Resp 18 S; Pulse Ox 100% on R/A; Pain 0/10; ad5 09:57 BP 143 / 96; Pulse 55; Resp 16 S; Pulse Ox 100% on R/A; jd3 05:15 Body Mass Index 22.96 (72.57 kg, 177.80 cm) ad5 MDM: 06:22 Patient medically screened. [facility] 07:25 Differential diagnosis: Nonspecific abd pain, gastritis, cholecystitis, pancreatitis, joo viral gastroenteritis, gastroenteritis. Data reviewed: vital signs, nurses notes, lab test result(s), EKG, radiologic studies, CT scan, plain films. Data interpreted: monitor car operator: rate is 53 beats/min, rhythm is regular. Test interpretation: by ED physician or midlevel provider: ECG, plain radiologic studies. Counseling: I had a detailed discussion with the patient and/or guardian regarding: the historical points, exam findings, and any diagnostic results supporting the discharge/admit diagnosis, lab results, radiology results, the need for outpatient follow up, for definitive care, a family practitioner, a escort vehicle driver. 02/19 05:13 Order name: Basic Metabolic Panel; Complete Time: 06:01 [facility] 02/19 05:13 Order name: CBC with Diff; Complete Time: 06:31 [facility] 02/19 05:13 Order name: Hepatic Function; Complete Time: 06:01 [facility] 02/19 05:13 Order name: Lipase; Complete Time: 06:01 [facility] 02/19 05:13 Order name: UDS; Complete Time: 06:31 [facility] 02/19 05:34 Order name: Manual Differential; Complete Time: 06:31 [facility] 02/19 06:09 Order name: Urine Dipstick-Ancillary; Complete Time: 06:10 [facility] 02/19 06:14 Order name: CT Abd/Pelvis - IV Contrast Only; Complete Time: 07:22 [facility] 02/19 06:30 Order name: Troponin (emerg Dept Use Only); Complete Time: 18:15 [facility] 02/19 06:32 Order name: Chest Single View XRAY; Complete Time: 07:45 [facility] 02/19 05:13 Order name: IV Saline Lock; Complete Time: 05:22 [facility] 02/19 05:13 Order name: Labs collected and sent; Complete Time: 05:23 [facility] 02/19 05:13 Order name: Urine Dipstick-Ancillary (obtain specimen); Complete Time: 07:21 [facility] 02/19 05:16 Order name: EKG - Nurse/Tech; Complete Time: 05:34 [facility] 02/19 07:28 Order name: EKG; Complete Time: 07:29 [facility] 02/19 07:28 Order name: EKG - Nurse/Tech; Complete Time: 08:30 [facility] EC:25 Rate is 69 beats/min. Rhythm is regular. QRS Jackson is Normal. QRS interval is normal. QT joo interval is normal. No Q waves. T waves are Normal. No ST changes noted. Clinical impression: NSR w/ Non-specific ST/T Changes, LVH, and No evidence of ischemia. Interpreted by me. Reviewed by me. 08:11 Rate is 66 beats/min. Rhythm is regular. QRS Jackson is Normal. NV interval is normal. QRS joo interval is normal. QT interval is normal. No Q waves. T waves are Normal. No ST changes noted. Clinical impression: NSR w/ Non-specific ST/T Changes and LVH. Interpreted by me. Reviewed by me. Administered Medications: 05:22 Drug: NS 0.9% 1000 ml Route: IV; Rate: 1000 ml; Site: right antecubital; ad5 06:20 Follow up: Response: No adverse reaction; IV Status: Completed infusion; IV Intake: jd3 1000ml 05:22 Drug: Zofran (Ondansetron) 4 mg Route: IVP; Site: right antecubital; ad5 05:52 Follow up: Response: No adverse reaction; No change in condition ad5 05:22 Drug: Pepcid (famotidine) 20 mg Route: IVP; Site: right antecubital; ad5 05:52 Follow up: Response: No adverse reaction; No change in condition ad5 05:51 Drug: Reglan (metoCLOPramide) 10 mg Route: IVP; Site: right antecubital; ad5 06:57 Follow up: Response: No adverse reaction; Nausea is decreased ad5 06:20 Drug: NS 0.9% 1000 ml Route: IV; Rate: 1000 ml; Site: right antecubital; ad5 07:20 Follow up: Response: No adverse reaction; IV Status: Completed infusion jd3 Disposition: 02/19/21 07:47 Discharged to Home. Impression: Vomiting, Lactose intolerance, unspecified, Cocaine abuse, Essential (primary) hypertension. - Condition is Stable. - Discharge Instructions: Stimulant Use Disorder-Cocaine, Nausea and Vomiting, Adult, Substance Use Disorder, Nausea and Vomiting, Adult, [id number], Diet for Lactose Intolerance, Adult, Lactose-Free Diet, Adult, Lactose Intolerance, Adult. - Prescriptions for Pepcid 20 mg Oral Tablet - take 1 tablet by ORAL route every 12 hours for 10 days; 20 tablet. Zofran 4 mg Oral Tablet - take 1 tablet by ORAL route every 12 hours As needed; 20 tablet. - Medication Reconciliation Form, Thank You Letter, Antibiotic Education, Prescription Opioid Use form. - Follow up: Private Physician; When: 2 - 3 days; Reason: Recheck today's complaints, Continuance of care, Re-evaluation by your physician. - Problem is new. - Symptoms have improved. Signatures: Dispatcher [employer] EDMS Geo Oswald MD MD cha Davies, Jonathon, RN RN jd3 Huan Sanchez MD MD mh7 Ned Hernández ad5 Corrections: (The following items were deleted from the chart) 10:18 07:47 02/19/2021 07:47 Discharged to Home. Impression: Vomiting; Lactose intolerance, jd3 unspecified; Cocaine abuse; Essential (primary) hypertension. Condition is Stable. Discharge Instructions: Stimulant Use Disorder-Cocaine, Nausea and Vomiting, Adult, Substance Use Disorder, Nausea and Vomiting, Adult, [id number], Diet for Lactose Intolerance, Adult, Lactose-Free Diet, Adult, Lactose Intolerance, Adult. Prescriptions for Pepcid 20 mg Oral Tablet - take 1 tablet by ORAL route every 12 hours for 10 days; 20 tablet, Zofran 4 mg Oral Tablet - take 1 tablet by ORAL route every 12 hours As needed; 20 tablet. and Forms are Medication Reconciliation Form, Thank You Letter, Antibiotic Education, Prescription Opioid Use. Follow up: Private Physician; When: 2 - 3 days; Reason: Recheck today's complaints, Continuance of care, Re-evaluation by your physician. Problem is new. Symptoms have improved. joo
[2021-02-19 10:25] VITALS: TEMP 97.6; O2SAT 100
[2021-02-19 10:29] VITALS: BP 143/96
== END 2021-02-19 10:18 | disposition home or self-care (01) ==
LOC: ER 05:00
DX: E73.9 Lactose intolerance, unspecified (principal); F14.10 Cocaine abuse, uncomplicated; I10 Essential (primary) hypertension
CPT/HCPCS: 36415; 71045; 74177; 80048; 80076; 80307; 81003; 83690; 84484; 85025; 93005; 96361; 96374; 96375; 99284; J2405; J2765; J7030; Q9967

== ENCOUNTER 2021-03-04 02:19 | Emergency (ER) | payer SELFPAY ==
--- OUTSIDE RECORDS SUMMARY | 2021-03-04 02:21 | XMS REPORT | Continuity of Care Document ---
:1980 Author Organization [facility] t Address [address] [place] [address] Care Team Providers Name Role Phone Hue [...] Department ID 2020-04-17 2020-04-18 Emergency Allen Courtney [facility] 1.2.840 .114 [id number] 06:30:30 11:35:00 Deepak Weber [id number] [place] [id number] [place] [id number] 2020-04-14 2020-04-14 Telephone BHAVIN Ramos [id number] 00:00:00 00:00:00 Sarah HICKS [id number] [facility] [id number] 2020-04-07 2020-04-09 Emergency Yancy Brink [facility] 1.2.840 .114 [id number] 19:37:02 10:30:00 Mike Bob [id number] [place] [id number] [place] [id number] [id number] Results This patient has no known results.
--- NOTE | 2021-03-04 04:42 | ER ---
Nurse's Notes [facility] Name: Bruce Oswald Age: 40 yrs Sex: Male : 1980 Arrival Date: 03/04/2021 Time: 02:21 Bed 14 Private MD: Diagnosis: Presentation: 03/04 02:54 Chief complaint: Patient states: he got his front tooth knocked out a while ago and has bb not been able to get it fixed and now he has been having a toothache with pain radiating into his face x 2 days. Coronavirus screen: At this time, the client does not indicate any symptoms associated with coronavirus-19. Ebola Screen: No symptoms or risks identified at this time. Initial Sepsis Screen: Does the patient meet any 2 criteria? No. Patient's initial sepsis screen is negative. Does the patient have a suspected source of infection? No. Patient's initial sepsis screen is negative. Risk Assessment: Do you want to hurt yourself or someone else? Patient reports no desire to harm self or others. Onset of symptoms was March 02, 2021. 02:54 Method Of Arrival: Ambulatory bb 02:54 Acuity: ZENON 5 bb Triage Assessment: 03:00 General: Appears uncomfortable. EENT: Reports Tooth ache. wh Historical: - Allergies: 02:56 NKDA; bb - Home Meds: 02:56 None [Active]; bb - PMHx: 02:56 Asthma; Back pain; Hypertension; bb - PSHx: 02:56 None; bb - Immunization history:: Adult Immunizations up to date. - Social history:: Smoking status: Patient reports the use of cigarette tobacco products, smokes one-half pack cigarettes per day, Patient uses alcohol, occasionally. Patient/guardian denies using street drugs. Screenin:00 Abuse screen: Denies threats or abuse. Denies injuries from another. Nutritional wh screening: No deficits noted. Tuberculosis screening: No symptoms or risk factors identified. Fall Risk None identified. Assessment: 03:00 General: Appears in no apparent distress. uncomfortable, Behavior is calm, cooperative, wh appropriate for age. Pain: Complains of pain in toothache. Neuro: Level of Consciousness is awake, alert, obeys commands, Oriented to person, place, time, situation, Appropriate for age. Cardiovascular: Capillary refill < 3 seconds. Respiratory: Airway is patent Respiratory effort is even, unlabored, Respiratory pattern is regular, symmetrical. GI: Abdomen is flat, non-distended. : No signs and/or symptoms were reported regarding the genitourinary system. EENT: Poor dentition noted. Derm: Skin is intact, is healthy with good turgor, Skin is pink, warm \T\ dry. normal. Musculoskeletal: Circulation, motion, and sensation intact. 04:00 Reassessment: Patient appears in no apparent distress at this time. Notified Charge Nurse Pt is still not seen by MD. Vital Signs: 02:54 BP 160 / 104; Pulse 86; Resp 16 S; Temp 100(O); Pulse Ox 99% on R/A; Weight 74.84 kg (R); Height 5 ft. 9 in. (175.26 cm) (R); Pain 10/10; 04:00 BP 158 / 92; Pulse 82; Resp 18; Pulse Ox 99% on R/A; wh 02:54 Body Mass Index 24.37 (74.84 kg, 175.26 cm) ED Course: 02:21 Patient arrived in ED. 02:56 Triage completed. 02:56 Arm band placed on Patient placed in an exam room, on a stretcher, on pulse oximetry. 02:58 Huan Sanchez MD is Attending Physician. [facility] 03:00 Patient has correct armband on for positive identification. Bed in low position. Call light in reach. Side rails up X 1. Pulse ox on. NIBP on. 03:03 Steffi Campos, RN is Primary Nurse. 04:40 No provider procedures requiring assistance completed. Patient did not have IV access during this emergency room visit. Administered Medications: No medications were administered Outcome: 04:40 Eloped from patient exam room, before seeing physician 04:40 Condition: stable 04:41 Patient left the ED. Signatures: Debbie Torres Brenda, RN RN Steffi Galloway, RN Huan Boyd MD MD mh7
[2021-03-04 04:47] VITALS: TEMP 100; O2SAT 99
[2021-03-04 04:48] VITALS: BP 158/92
== END 2021-03-04 04:41 | disposition left against medical advice (07) ==
LOC: ER 02:19
DX: Z53.21 Procedure and treatment not carried out due to patient leaving prior to being seen by health care provider (principal)
CPT/HCPCS: 99282

== ENCOUNTER 2021-06-15 18:56 | Emergency (ER) | payer SELFPAY ==
--- OUTSIDE RECORDS SUMMARY | 2021-06-15 18:59 | XMS REPORT | Continuity of Care Document ---
:1980 Author Organization [facility] t Address [address] [place] [address] Care Team Providers Name Role Phone Hue [...] Allen Courtney [facility] 1.2.840 .114 [id number] 06:30:30 11:35:00 Deepak Weber [id number] [place] [id number] [place] [id number] 2020-04-14 2020-04-14 Telephone BHAVIN Ramos [id number] 00:00:00 00:00:00 Sarah HICKS [id number] [facility] [id number] 2020-04-07 2020-04-09 Emergency Yancy Brink [facility] 1.2.840 .114 [id number] 19:37:02 10:30:00 Mike Bob [id number] [place] [id number] [place] [id number] [id number] Results This patient has no known results.
[2021-06-15 21:40] LABS: Absolute Lymphocytes (CBC) 1.9 K/uL (0.7-4.9); Basophils % 0.5 % (0-1.3); Hematocrit 46.6 % (39.6-49.0); MPV 9.7 fL (7.6-11.3); RBC Red Blood Cell Count 4.95 M/uL (4.33-5.43)
[2021-06-15] MEDS ORDERED: NA CHLORIDE 0.9% 1,000 ML ONE ×2 (21:42→23:39)
[2021-06-15] MEDS ORDERED: ONDANSETRON 4 MG/2 ML VIAL ONE ×2 (21:42→23:38)
[2021-06-15 22:47] LABS: ALT/SGPT 33 U/L (12-78); AST/SGOT 25 U/L (15-37); Albumin 3.9 g/dL (3.4-5.0); Alkaline Phosphatase 83 U/L (45-117); BUN Blood Urea Nitrogen 23 mg/dL (7-18); Bicarbonate 23 mmol/L (21-32); Bilirubin Direct < 0.1 mg/dL (0-0.2); Bilirubin Total 0.2 mg/dL (0.2-1.0); Glucose Level 155 mg/dL (74-106); Lipase 38 U/L (73-393); Potassium 3.8 mmol/L (3.5-5.1); Protein, Total 7.6 g/dL (6.4-8.2); Sodium Level 142 mmol/L (136-145)
[2021-06-15 22:58] LABS: Urine Blood Trace-intact (Negative); Urine Glucose Negative (Negative); Urine Protein 2+ (Negative); Urine Specific Gravity >=1.030 (1.005-1.030); Urine pH 5.5 (5.0-7.0)
[2021-06-16] MEDS ORDERED: PROMETHAZINE INJ 25 MG/ML AMP ONE ×2 (00:35→01:26)
[2021-06-16] MEDS ORDERED: MORPHINE 4 MG/ML SYR ONE (01:26)
[2021-06-16] MEDS ORDERED: HALOPERIDOL LACT 5 MG/ML INJ ONE (01:26)
[2021-06-16] MEDS ORDERED: NA CHLORIDE 0.9% 1,000 ML ONE (01:30)
--- NOTE | 2021-06-16 03:27 | EDPHYS ---
Physician Documentation [facility] Name: Bruce Oswald Age: 41 yrs Sex: Male : 1980 Arrival Date: 06/15/2021 Time: 19:36 Bed 16 Private MD: ED Physician Hay Saha HPI: 06/16 00:18 This 41 yrs old Black Male presents to ER via EMS with complaints of Vomiting. rn 00:18 The patient presents to the emergency department with nausea, vomiting. Onset: The rn symptoms/episode began/occurred today. Possible causes: unknown. The symptoms are aggravated by nothing. The symptoms are alleviated by nothing. Associated signs and symptoms: Pertinent positives: nausea, vomiting, Pertinent negatives: fever, GI bleeding. 00:18 Severity of symptoms: At their worst the symptoms were moderate in the emergency rn department the symptoms are unchanged. The patient has experienced similar episodes in the past. The patient has not recently seen a physician. Patient reports working outside all day long today, thinks got dehydrated and overheated, reports nausea and vomiting. Denies fever. States this is happened multiple times before and when gets overheated cannot stop throwing up. Denies headache or focal neurological problems. Reports mild abdominal cramping feels more hungry than anything.. Historical: - Allergies: 00:47 NKDA; bs2 - PMHx: 00:47 Asthma; Back pain; Hypertension; bs2 - Immunization history:: Adult Immunizations not up to date. - Family history:: not pertinent. - Social history:: Smoking status: unknown. - Hospitalizations: : No recent hospitalization is reported. ROS: 00:18 Constitutional: Negative for fever, chills, and weight loss, Eyes: Negative for injury, rn pain, redness, and discharge, ENT: Negative for injury, pain, and discharge, Neck: Negative for injury, pain, and swelling, Cardiovascular: Negative for chest pain, palpitations, and edema, Respiratory: Negative for shortness of breath, cough, wheezing, and pleuritic chest pain, Abdomen/GI: Negative for diarrhea, and constipation, Back: Negative for injury and pain, : Negative for injury, bleeding, discharge, and swelling, MS/Extremity: Negative for injury and deformity, Skin: Negative for injury, rash, and discoloration, Neuro: Negative for headache, numbness, tingling, and seizure. 00:18 All other systems are negative. Exam: 00:18 Constitutional: Thin male, holding emesis bag Head/Face: Normocephalic, atraumatic. rn Eyes: Pupils equal round and reactive to light, extra-ocular motions intact. Lids and lashes normal. Conjunctiva and sclera are non-icteric and not injected. Cornea within normal limits. Periorbital areas with no swelling, redness, or edema. ENT: Dry mucous membranes. Cardiovascular: Regular rate and rhythm. No pulse deficits. Respiratory: No increased work of breathing, no retractions or nasal flaring. Abdomen/GI: Soft, non-tender Skin: Warm, dry MS/ Extremity: Pulses equal, no cyanosis. Neuro: Awake and alert, GCS 15, oriented to person, place, time, and situation. Cranial nerves II-XII grossly intact. Motor strength 5/5 in all extremities. Sensory grossly intact. Cerebellar exam normal. Normal gait. Vital Signs: 06/15 19:42 BP 151 / 102; Pulse 95; Resp 18; Temp 98.7; Pulse Ox 100% on R/A; Weight 72.57 kg; wg Height 5 ft. 9 in. (175.26 cm); Pain 0/10; 06/16 00:15 BP 137 / 82 RA Supine (auto/reg); Pulse 68 MON; Resp 15 S; Temp 98.4(O); Pulse Ox 100% bs2 on R/A; Pain 6/10; 03:30 BP 161 / 81 LA Sitting (auto/reg); Pulse 87 MON; Resp 15 S; Temp 98.6(O); Pulse Ox 100% bs2 on R/A; Pain 2/10; 06/15 19:42 Body Mass Index 23.63 (72.57 kg, 175.26 cm) wg MDM: 06/15 21:15 Patient medically screened. rn 06/16 02:40 Differential diagnosis: Nonspecific abd pain, gastritis, cholecystitis, pancreatitis, rn appendicitis, diverticulitis, viral gastroenteritis, gastroenteritis. Data reviewed: vital signs, nurses notes, lab test result(s), radiologic studies, CT scan, and as a result, I will discharge patient. Data interpreted: playground monitor: rate is 68 beats/min, rhythm is normal sinus rhythm, regular, with no ectopy, Interpretation: normal rate, normal rhythm, Pulse oximetry: on room air is 100 %. Interpretation: normal. Counseling: I had a detailed discussion with the patient and/or guardian regarding: the historical points, exam findings, and any diagnostic results supporting the discharge/admit diagnosis, lab results, radiology results, the need for outpatient follow up, to return to the emergency department if symptoms worsen or persist or if there are any questions or concerns that arise at home. Response to treatment: the patient's symptoms have markedly improved after treatment, and as a result, I will discharge patient. ED course: No acute finding and CT abdomen and pelvis. Patient sleeping comfortably no longer vomiting.. 06/15 20:46 Order name: Basic Metabolic Panel; Complete Time: 22:47 wg 06/15 20:46 Order name: CBC with Diff; Complete Time: 22:47 wg 06/15 20:46 Order name: Hepatic Function; Complete Time: 22:47 wg 06/15 20:46 Order name: Lipase; Complete Time: 22:47 wg 06/15 22:58 Order name: Urine Dipstick-Ancillary; Complete Time: 23:00 EDMS 06/15 23:58 Order name: CT Abd/Pelvis - Without Contrast rn 06/15 20:46 Order name: IV Saline Lock; Complete Time: 21:24 wg 06/15 20:46 Order name: Labs collected and sent; Complete Time: 23:53 wg 06/15 21:45 Order name: Labs - recollect needed: all labs needed; Complete Time: 23:53 mw2 Administered Medications: 06/15 21:24 Drug: NS 0.9% 1000 ml Route: IV; Rate: 1000 ml; Site: left antecubital; bb 23:19 Follow up: IV Status: Completed infusion; IV Intake: 1000ml bb 21:24 Drug: Zofran (Ondansetron) 4 mg Route: IVP; Site: left antecubital; bb 23:50 Follow up: Response: No adverse reaction kg 23:18 Drug: NS 0.9% 1000 ml Route: IV; Rate: 1000 ml; Site: right antecubital; bb 06/16 00:46 Follow up: IV Status: Completed infusion; IV Intake: 1000ml bs2 06/15 23:18 Drug: Zofran (Ondansetron) 4 mg Route: IVP; Infused Over: 2 mins; Site: right bb antecubital; 23:50 Follow up: Response: No adverse reaction kg 06/16 00:14 Drug: Phenergan (promethazine) 12.5 mg Route: IVP; Rate: bolus; Infused Over: 1 mins; wg Site: right antecubital; 00:46 Follow up: Response: No adverse reaction bs2 01:20 Drug: Phenergan (promethazine) 12.5 mg Route: IVP; Site: right antecubital; bs2 01:20 Drug: morphine 4 mg Route: IVP; Site: right antecubital; bs2 01:21 Drug: HALdol (haloperidol) 5 mg Route: IVP; Site: left upper arm; bs2 Disposition Summary: 06/16/21 03:27 Discharge Ordered Location: Home rn Problem: new rn Symptoms: have improved rn Condition: Stable rn Diagnosis - Vomiting rn - Heat exhaustion, unspecified rn Followup: rn - With: Private Physician - When: As needed - Reason: Recheck today's complaints, Re-evaluation by your physician Discharge Instructions: - Discharge Summary Sheet rn - Heat Exhaustion rn - Vomiting, Adult rn Forms: - Medication Reconciliation Form rn - Thank You Letter rn - Antibiotic event marketing intern - Prescription Opioid Use rn Prescriptions: - ondansetron 4 mg Oral tablet,disintegrating - place 1 tablet by TRANSLINGUAL route every 8 hours As needed; 20 tablet; rn Refills: 0, Product Selection Permitted Signatures: Dispatcher [employer] Maria D Garcia RN RN bb Hay Saha MD MD rn [place], MyKena mw2 Mikaela Friedman RN RN bs2 Isaiah Man RN Pamela Shepherd RN kg
--- NOTE | 2021-06-16 03:27 | ER ---
Nurse's Notes [facility] Name: Bruce Oswald Age: 41 yrs Sex: Male : 1980 Arrival Date: 06/15/2021 Time: 19:36 Bed 16 Private MD: Diagnosis: Vomiting;Heat exhaustion, unspecified Presentation: 06/15 19:42 Chief complaint: Patient states: States he was at work around 3pm and started throwing wg up green/yellow emesis. States he wasn't aware if he had a fever. Denies any other complaints. Pt A\T\Ox4. Pt was apparently brought to triage by [facility] and arrived with a 20g IV saline lock. Chief complaint: Patient states: Pt continues to state he is hungry and wants something to drink. Denies pain. Coronavirus screen: Vaccine status: Patient reports being unvaccinated. Ebola Screen: Patient negative for fever greater than or equal to 101.5 degrees Fahrenheit, and additional compatible Ebola Virus Disease symptoms Patient denies exposure to infectious person. Patient denies travel to an Ebola-affected area in the 21 days before illness onset. Initial Sepsis Screen: Does the patient meet any 2 criteria? No. Patient's initial sepsis screen is negative. Initial Sepsis Screen: Does the patient have a suspected source of infection? No. Patient's initial sepsis screen is negative. Risk Assessment: Do you want to hurt yourself or someone else? Patient reports no desire to harm self or others. Onset of symptoms was June 15, 2021 at 15:00. Care prior to arrival: IV Saline Lock. 19:42 Method Of Arrival: EMS: [facility] 19:42 Acuity: ZENON 3 wg Triage Assessment: 19:47 General: Appears distressed, Behavior is agitated. Pain: Denies pain. EENT: No deficits wg noted. Neuro: No deficits noted. Cardiovascular: No deficits noted. Respiratory: No deficits noted. GI: Reports vomiting. : No deficits noted. Derm: No deficits noted. Musculoskeletal: No deficits noted. Injury Description:. Historical: - Allergies: 06/16 00:47 NKDA; bs2 - PMHx: 00:47 Asthma; Back pain; Hypertension; bs2 - Immunization history:: Adult Immunizations not up to date. - Family history:: not pertinent. - Social history:: Smoking status: unknown. - Hospitalizations: : No recent hospitalization is reported. Screenin:47 Abuse screen: Denies threats or abuse. Denies injuries from another. Nutritional bs2 screening: No deficits noted. Tuberculosis screening: No symptoms or risk factors identified. Fall Risk None identified. Assessment: 00:46 General: Appears in no apparent distress. uncomfortable, slender, unkempt, Behavior is bs2 cooperative. Pain: Complains of pain in abdomen. Neuro: No deficits noted. Cardiovascular: No deficits noted. Respiratory: No deficits noted. GI: Abdomen is flat, Pt is actively vomiting bile, Bowel sounds present X 4 quads. Abd is soft X 4 quads Abdomen is tender to palpation X 4 quads. Reports lower abdominal pain, upper abdominal pain, cramping, nausea, vomiting. : No signs and/or symptoms were reported regarding the genitourinary system. EENT: No signs and/or symptoms were reported regarding the EENT system. Derm: No signs and/or symptoms reported regarding the dermatologic system. Musculoskeletal: No signs and/or symptoms reported regarding the musculoskeletal system. Vital Signs: 06/15 19:42 BP 151 / 102; Pulse 95; Resp 18; Temp 98.7; Pulse Ox 100% on R/A; Weight 72.57 kg; wg Height 5 ft. 9 in. (175.26 cm); Pain 0/10; 06/16 00:15 BP 137 / 82 RA Supine (auto/reg); Pulse 68 MON; Resp 15 S; Temp 98.4(O); Pulse Ox 100% bs2 on R/A; Pain 6/10; 03:30 BP 161 / 81 LA Sitting (auto/reg); Pulse 87 MON; Resp 15 S; Temp 98.6(O); Pulse Ox 100% bs2 on R/A; Pain 2/10; 06/15 19:42 Body Mass Index 23.63 (72.57 kg, 175.26 cm) wg ED Course: 06/15 19:36 Patient arrived in ED. bp1 19:47 Triage completed. wg 19:48 Arm band placed on right wrist. wg 21:15 Hay Saha MD is Attending Physician. rn 21:24 Maintain EMS IV. Dressing intact. Good blood return noted. Site clean \T\ dry. Gauge \T\ kg site: 20 R AC. 09/09 00:16 Mikaela Friedman, RN is Primary Nurse. bs2 00:46 CT Abd/Pelvis - Without Contrast Sent. bs2 00:47 Patient has correct armband on for positive identification. Placed in gown. Bed in low bs2 position. Call light in reach. Side rails up X 1. Pulse ox on. NIBP on. Door closed. Noise minimized. Visitors limited. Lights dimmed. Warm blanket given. 00:47 No provider procedures requiring assistance completed. bs2 00:52 CT Abd/Pelvis - Without Contrast In Process Unspecified. EDMS 04:15 IV discontinued, intact, bleeding controlled, No redness/swelling at site. bs2 Administered Medications: 06/15 21:24 Drug: NS 0.9% 1000 ml Route: IV; Rate: 1000 ml; Site: left antecubital; bb 23:19 Follow up: IV Status: Completed infusion; IV Intake: 1000ml bb 21:24 Drug: Zofran (Ondansetron) 4 mg Route: IVP; Site: left antecubital; bb 23:50 Follow up: Response: No adverse reaction kg 23:18 Drug: NS 0.9% 1000 ml Route: IV; Rate: 1000 ml; Site: right antecubital; bb 06/16 00:46 Follow up: IV Status: Completed infusion; IV Intake: 1000ml bs2 06/15 23:18 Drug: Zofran (Ondansetron) 4 mg Route: IVP; Infused Over: 2 mins; Site: right bb antecubital; 23:50 Follow up: Response: No adverse reaction kg 06/16 00:14 Drug: Phenergan (promethazine) 12.5 mg Route: IVP; Rate: bolus; Infused Over: 1 mins; Site: right antecubital; 00:46 Follow up: Response: No adverse reaction bs2 01:20 Drug: Phenergan (promethazine) 12.5 mg Route: IVP; Site: right antecubital; bs2 01:20 Drug: morphine 4 mg Route: IVP; Site: right antecubital; bs2 01:21 Drug: HALdol (haloperidol) 5 mg Route: IVP; Site: left upper arm; bs2 Intake: 06/15 23:19 IV: 1000ml; Total: 1000ml. bb 06/16 00:46 IV: 1000ml; Total: 2000ml. bs2 Outcome: 03:27 Discharge ordered by . rn 04:15 Discharged to home ambulatory. bs2 04:15 Condition: improved 04:15 Discharge instructions given to patient, Instructed on discharge instructions, follow up and referral plans. medication usage, Demonstrated understanding of instructions, follow-up care, medications, Prescriptions given X 1. 04:17 Patient left the ED. bs2 Signatures: Dispatcher [employer] EDMS Maria D Alfred, RN RN Hay Kelly MD MD rn [place], Brittany bp1 Graham, Kristen, RN RN kg Smith, Bridget, RN RN bs2 Isaiah Man RN wg
[2021-06-16 04:22] VITALS: O2SAT 100
[2021-06-16 04:26] VITALS: BP 161/81; TEMP 98.6
--- NOTE | 2021-06-16 12:25 | RAD REPORT ---
EXAM DESCRIPTION: CT - Abdomen Pelvis Wo Contrast - 06/16/2021 6:23 am CLINICAL HISTORY: Abd pain;Nausea / vomiting TECHNIQUE: Axial computed tomography images of the abdomen and pelvis without intravenous contrast. Sagittal and coronal reformatted images were created and reviewed. This CT exam was performed usi ng one or more of the following dose reduction techniques: automated exposure control, adjustment o f the mA and/or kV according to patient size, and/or use of iterative reconstruction technique. COMPARISON: 02/19/2021 FINDINGS: Lung bases: Unremarkable. No mass. No consolidation. ABDOMEN: Liver: Unremarkable. Gallbladder and bile ducts: Unremarkable. No calcified stones. No ductal dilation. Pancreas: Unremarkable. No ductal dilation. Spleen: Unremarkable. No splenomegaly. Adrenals: Unremarkable. No mass. Kidneys and ureters: Unremarkable. No obstructing stones. No hydronephrosis. Stomach and bowel: Moderate stool within the mid to distal large bowel. No obstruction. No mucosa l thickening. PELVIS: Appendix: Normal caliber appendix. No findings to suggest acute appendicitis. Bladder: Unremarkable. No stones. Reproductive: Unremarkable as visualized. ABDOMEN and PELVIS: Intraperitoneal space: Unremarkable. No free air. No significant fluid collection. Bones/joints: Degenerative changes predominantly at L3-L4 and L4-L5. The central thecal sac is mode rately compromised at these levels. No acute fracture. No dislocation. Soft tissues: Unremarkable. Vasculature: Unremarkable. No abdominal aortic aneurysm. Lymph nodes: Unremarkable. No enlarged lymph nodes. IMPRESSION: 1. Moderate stool within the mid to distal large bowel. No obstruction. 2. Other findings as above. Electronically signed by: Wanda Combs MD 06/16/2021 1:15 AM CDT Due to temporary technical issues with the PACS/Fluency reporting system, reports are being signed by the in house radiologist without review as a courtesy to ensure prompt reporting. The interpreting r adiologist is fully responsible for the content of the report.
== END 2021-06-16 04:17 | disposition home or self-care (01) ==
LOC: ER 18:56
DX: T67.5XXA Heat exhaustion, unspecified, initial encounter (principal); X58.XXXA Exposure to other specified factors, initial encounter; Y93.9 Activity, unspecified; Y92.89 Other specified places as the place of occurrence of the external cause; Y99.0 Civilian activity done for income or pay; I10 Essential (primary) hypertension; J45.909 Unspecified asthma, uncomplicated
CPT/HCPCS: 36415; 74176; 80048; 80076; 81003; 83690; 85025; 99284; J1630; J2405; J2550; J7030

== ENCOUNTER 2021-11-22 01:10 | Emergency (ER) | payer OTHER ==
--- OUTSIDE RECORDS SUMMARY | 2021-11-22 01:15 | XMS REPORT | Continuity of Care Document ---
:1980 Author Organization [facility] t Address [address] [place] [address] Care Team Providers Name Role Phone PCP, DOES NOT HAVE A Primary Care Physician Unavailable YURI Attending Clinician Unavailable Yuri ROSALES Attending Clinician Sherwin ROSALES, S Attending Clinician Tia ROSALES Attending Clinician Hue COURTNEY Attending Clinician Unavailable Richard Attending Clinician Shantal Crump NP Attending Clinician Paulino ROSALES Attending Clinician Shantal CRUMP Attending Clinician Unavailable Tia ROSALES Admitting Clinician Paulino ROSALES Admitting Clinician Payers Payer Name Policy Type Policy Number Effective Date Expiration Date S ource MEDICARE OBS/INPT [id number] 2004 PART A ONLY 00:00:00 Problems Condition Condition Condition Status Onset Resolution Last Treating Co mments Source Name Details Category Date Date Treatment Clinician Date 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 U nivers e vomiting e vomiting 7-11 it y of with with 00:00: [place] nausea nausea 00 Medical [place] Essential Essential Disease Active 2020-0 Uni vers hypertensi hypertensi 7-11 it y of on on 00:00: [place] 00 Medical Branch Troponin I Troponin I Disease Active 2020-0 U nivers above above 7-11 ity of reference reference 00:00: [place] range range 00 Medical Branch CAESAR (acute CAESAR (acute Disease Active 2020-0 U nivers kidney kidney 04-08 ity of injury) injury) 00:00: [place] 00 Medical Branch Allergies, Adverse Reactions, Alerts Allergy Allergy Status Severity Reaction(s) Onset Inactive Treating Comm ents Source Name Type Date Date Clinician NO KNOWN Drug Active Univers ALLERGIE Class ity of [facility] Social History Social Habit Start Date Stop Date Quantity Comments Source Exposure to Yes [facility] SARS-CoV-2 (event) Medica l Branch Tobacco use and 2020-04-08 2020-04-08 Never used [facility] [place] [facility] exposure 00:00:00 00:00:00 Medical Branch Sex [birth year] [facility] 00:00:00 00:00:00 Medical Branch Smoking Status Start Date Stop Date Source Current every day smoker 2020-04-08 00:00:[facility] Medications Ordered Filled Start Stop Current Ordering Indication Dosage Frequency Signature Comments Components Source Medication Medication Date Date Medication? Clinician (SIG) Name Name ondansetron Yes [id number] 4mg Take 1 Univers 4 mg 1-16 tablet by ity of disintegrat 00:00: mouth [place] ing tablet 00 every 4 Medica l (four) Branch hours as needed for Nausea and Vomiting (N/V). dicyclomine Yes [id number] 20mg Take 1 Univers 20 mg 1-16 tablet by ity of tablet 00:00: mouth 4 [place] 00 (four) Medical times Branch daily. loratadine Yes [id number] 10mg Take 1 U nivers 10 mg 1-16 tablet by ity of tablet 00:00: mouth [place] 00 daily. Medical Branch aspirin 81 2020- No [id number] 81mg Take 1 Univers mg chewable 7-13 08-13 tablet by it y of tablet 00:00: 04:59 mouth [place] 00 :00 daily for Medical 30 days. Branch aspirin Yes 81mg 81 mg, Univers chewable 7-12 Oral, ity of tablet 81 14:00: DAILY, [place] mg 00 First dose Medical on [place] 04/18/20 at 0900, Until Discontinu ed, Routine carvediloL 2020- No [id number] 3.125mg Take 1 Univers 3.125 mg 7-12 08-12 tablet by ity o f tablet 00:00: 04:59 mouth 2 [place] 00 :00 (two) Medical times [place] daily with meals for 30 days. pantoprazol 2020-0 2020- No [id number] 40mg Take 1 Univers e 40 mg EC 04-18 tablet by ity of tablet 00:00: 04:59 mouth [place] 00 :00 daily for Medical 30 days. Branch carvediloL 2020-0 Yes 3.125mg 3.125 mg, Univers (COREG) 04-17 Oral, BID ity of tablet 22:00: MEALS, [place] 3.125 mg 00 First dose Medic al on [facility] 04/17/20 at 1700, Until Discontinu ed, Routine
council member approving Restricted medication : MEGADC atorvastati 2019-0 Yes 40mg 40 mg, Univ ers n (LIPITOR) 04-17 Oral, QPM, it y of tablet 40 22:00: [place] dose [place] 00 on [facility] 04/17/20 at Branch 1700, Until Discontinu ed, Routine heparin 2020-0 Yes 5000U 5,000 Univers (porcine) 04-17 Units, ity of injection 19:00: Subcutaneo [place] 5,000 Units 00 us, Q8H, Medi shobha First dose Branch on [facility] 04/17/20 at 1400, Until Discontinu ed, Routine nicotine 2019-0 Yes 1{patch 1 Patch, Un nora (NICODERM) 04-17 } Topical, ity o f 7 mg/24 hr 18:00: Administer [place] patch 1 00 over 24 Medical Patch Hours, Branch Q24H, First dose on [facility] 04/17/20 at 1300, Until Discontinu ed, Routine D5W 0.9% 2019-0 2020- No 1000mL at 100 Univ ers NaCl (NS) 04-17 07-12 mL/hr, ity of IV infusion 17:00: 13:34 1,000 mL, [place] 1,000 mL 00 :21 IV Medical Infusion, Branch CONTINUOUS , Starting [facility] 04/17/20 at 1200, Until 04/18/20 at 0834, Routine LORazepam 2020-0 Yes .5mg 0.5 mg, Unive rs (ATIVAN) 04-17 Slow IV ity of injection 15:55: Push, [place] 0.5 mg 35 Q8HPRN, Medical Starting Branch [facility] 04/17/20 at 1055, Until Discontinu ed, Routine, Anxiety, Agitation nitroglycer 2020-0 Yes .4mg 0.4 mg, Uni vers in 04-17 Sublingual ity of (NITROSTAT) 15:43: , Q5MIN [place] as sublingual 20 PRN, Medical tablet 0.4 Starting Branc h mg 04/17/20 at 1043, Until Discontinu ed, Routine, Chest pain ondansetron 2019-0 Yes 4mg 4 mg, Slow Univers (ZOFRAN 04-17 IV Push, ity of (PF)) 15:24: Q6HPRN, [place] injection 4 53 Starting Medi shobha mg Sat Branch 04/17/20 at 1024, Until Discontinu ed, Routine, Nausea and Vomiting (N/V) morpHINE 2019-0 2020- No 2mg 2 mg, Slow Un nora injection 2 04-17 IV Push, ity of mg 15:24: 15:23 Q4HPRN, [place] 16 :16 Starting Medical Sat Branch 04/17/20 at 1024, Until 04/18/20 at 1023, Routine, Pain (scale 7-10) aspirin 2019-0 2020- No 324mg 324 mg, Unive rs chewable 04-17 Oral, ity of tablet 324 14:59: 15:04 ONCE, 1 [place] as mg 00 :00 dose, Sat Medical 04/17/20 at Branch 1000, Routine proMETHazin 2019-0 2020- No 25mg 25 mg, IV Univers e 04-17 Piggyback, ity of (PHENERGAN) 14:45: 14:45 ONCE, 1 [place] 25 mg in 00 :00 dose, Sat Medica l NaCl 0.9% 04/17/20 at [facility] ch (NS) 50 mL 0945, 50 piggyback mL NaCl 0.9% 2019-0 2020- No 500mL at 999 Univ ers (NS) bolus 04-17 mL/hr, 500 it y of infusion 14:00: 01:12 mL, IV [place] 500 mL 00 :00 Infusion, Medical ONCE, 1 Branch dose, 04/17/20 at 0900, STAT ondansetron 2019-0 2020- No 4mg 4 mg, Slow Univers (ZOFRAN 04-17 IV Push, ity of (PF)) 14:00: 13:10 ONCE, 1 [place] injection 4 00 :00 dose, Sat Med ical mg 04/17/20 at Branch 0900, JUNE morpHINE 2020-0 2020- No 4mg 4 mg, Slow Un nora injection 4 04-17 IV Push, ity of mg 14:00: 13:10 ONCE, 1 [place] 00 :00 dose, [facility] Medical 04/17/20 at Branch 0900, STAT pantoprazol 2019-0 2020- No 40mg 40 mg, IV Univers e 04-17 Piggyback, ity of (PROTONIX) 14:00: 13:26 ONCE, 1 [place] as 40 mg in 00 :00 dose, Sat Medica l NaCl 0.9% 04/17/20 at Bran ch (NS) 100 mL 0900, 100 MINI-BAG mL NaCl 0.9% 2020-0 2020- No 1000mL at 999 Uni vers (NS) bolus 04-17 mL/hr, ity of infusion 13:00: 15:04 1,000 mL, [place] as 1,000 mL 00 :00 IV Medical Infusion, [place] ONCE, 1 dose, 04/17/20 at 0800, STAT ondansetron 2019-0 2020- No 4mg 4 mg, Slow Univers (ZOFRAN 04-17 IV Push, ity of (PF)) 13:00: 11:54 ONCE, 1 [place] injection 4 00 :00 dose, Sat Med ical mg 04/17/20 at Branch 0800, JUNE LORazepam 2020-0 2020- No 2mg 2 mg, Slow U nivers (ATIVAN) 04-08 IV Push, ity of injection 2 09:00: 07:56 ONCE, 1 [place] mg 00 :00 dose, [facility] Medical 04/08/20 at Branch 0400, Routine NaCl 0.9% 2020-0 Yes 1000mL at 150 Univ ers (NS) IV 7-02 mL/hr, ity of infusion 06:00: Intravenou [place] 1,000 mL 00 s, Medical CONTINUOUS [place] , Starting Erika 04/08/20 at 0100, Until Discontinu ed, Routine ondansetron 2020-0 2020- No 8mg 8 mg, Slow Univers (ZOFRAN 04-08 IV Push, ity of (PF)) 06:00: 04:53 ONCE, 1 [place] injection 8 00 :00 dose, [place] Med ical mg 04/08/20 at Branch 0100, JUNE NaCl 0.9% 2019- No 1000mL at 999 Uni vers (NS) IV 04-08 07-02 mL/hr, ity of infusion 05:45: 06:21 Intravenou [place] 1,000 mL 00 :00 s, ONCE, 1 Medic al dose, [place] Branch 04/08/20 at 0045, Routine NaCl 0.9% 2019- No 1000mL at 999 Uni vers (NS) bolus 04-08 07-02 mL/hr, ity of infusion 01:00: 02:20 1,000 mL, [place] as 1,000 mL 00 :00 IV Medical Infusion, Branch ONCE, 1 dose, 04/07/20 at 2000, JUNE No known No Univers medications [facility] No known No Univers medications [facility] Vital Signs Vital Name Observation Time Observation Value Comments Source Systolic blood 2021-10-23 18:43:00 136 mm[Hg] [facility] Diastolic blood 2021-10-23 18:43:00 89 mm[facility]Hg] [facility] 2021-10-23 18:43:00 73 /min [facility] Body temperature 2021-10-23 18:43:[address] [facility] Respiratory rate 2021-10-23 18:43:00 18 /min [facility] Body weight 2021-10-23 18:43:00 70.308 kg [facility] BMI 2021-10-23 18:43:00 24.28 kg/m2 [facility] Oxygen saturation in 2021-10-23 18:43:00 100 /min [facility] Arterial blood by [facility] Pulse oximetry Branch Systolic blood 2020-04-18 16:00:00 132 mm[Hg] Univer sity [facility] Diastolic blood 2020-04-18 16:00:00 95 mm[Hg] [facility] 2020-04-18 16:00:00 82 /min [facility] Body temperature 2020-04-18 16:00:00 37.17 Sumi Univ ersity [facility] [place] [facility] Respiratory rate 2020-04-18 16:00:00 18 /min Univ ersity [facility] [place] [facility] Oxygen saturation in 2020-04-18 16:00:00 98 /min University of Arterial blood by [facility] Pulse oximetry Branch Body weight 2020-04-18 08:08:00 70.988 kg [facility]i ty [facility] [place] [facility] BMI 2020-04-18 08:08:00 24.51 kg/m2 [facility] [place] [facility] Body height 2020-04-17 22:34:00 170.2 cm [facility] [place] [facility] Systolic blood 2020-04-18 16:00:00 132 mm[Hg] Univer sity of pressure [place] [facility] Diastolic blood 2020-04-18 16:00:00 95 mm[Hg] Unive rsity of pressure [place] [facility] Heart rate 2020-04-18 16:00:00 82 /min [facility] [place] [facility] Body temperature 2020-04-18 16:00:00 37.17 Sumi Univ ersity [facility] [place] [facility] Respiratory rate 2020-04-18 16:00:00 18 /min Univ ers[facility] [place] [facility] Oxygen saturation in 2020-04-18 16:00:00 98 /min University of Arterial blood by [facility] Pulse oximetry Branch Body weight 2020-04-18 08:08:00 70.988 kg [facility] ty [facility] [place] [facility] BMI 2020-04-18 08:08:00 24.51 kg/m2 [facility] [place] [facility] Body height 2020-04-17 22:34:00 170.2 cm [facility] [place] [facility] Systolic blood 2020-04-09 12:12:00 134 mm[Hg] Univer sity of pressure [place] [facility] Diastolic blood 2020-04-09 12:12:00 74 mm[Hg] Unive rsity of pressure [place] [facility] Heart rate 2020-04-09 12:12:00 80 /min [facility] [place] [facility] Body temperature 2020-04-09 12:12:00 37 Sumi Univ [facility] [place] [facility] Respiratory rate 2020-04-09 12:12:00 18 /min Univ ers[facility] [place] [facility] Oxygen saturation in 2020-04-09 12:12:00 99 /min University of Arterial blood by [facility] Pulse oximetry Branch Body weight 2020-04-09 08:55:00 70.489 kg [facility] [place] [facility] BMI 2020-04-09 08:55:00 22.95 kg/m2 [facility] [place] [facility] Body height 2020-04-08 06:35:00 175.3 cm [facility] [place] [facility] Systolic blood 2020-04-09 12:12:00 134 mm[Hg] Univer sity of pressure [facility] Diastolic blood 2020-04-09 12:12:00 74 mm[Hg] Unive rsity of pressure [facility] Heart rate 2020-04-09 12:12:00 80 /min Universi ty of [facility] Body temperature 2020-04-09 12:12:00 37 Sumi [facility] Respiratory rate 2020-04-09 12:12:00 18 /min [facility] Oxygen saturation in 2020-04-09 12:12:00 99 /min [facility] Arterial blood by [facility] Pulse oximetry [place] Body weight 2020-04-09 08:55:00 70.489 kg [facility] [place] [facility] BMI 2020-04-09 08:55:00 22.95 kg/m2 Universi ty [facility] [place] [facility] [place] Body height 2020-04-08 06:35:00 175.3 cm Universi ty [facility] Procedures Procedure Date / Time Performing Clinician Source Performed ASSIGNMENT OF BENEFITS 2021-10-23 19:03:33 Doctor Unassigned, No [facility] NOTICE OF PRIVACY 2021-10-23 18:37:52 Doctor Unassigned, No [facility] PRACTICES Name Medical Branch CONSENT/REFUSAL FOR 2021-10-23 18:36:42 Doctor Unassigned, No [facility] DIAGNOSIS AND TREATMENT Name [facility] Branch MAGNESIUM 2020-04-18 10:16:00 [facility] TROPONIN I 2020-04-18 10:16:00 Ramses Wiseman [facility] BASIC METABOLIC PANEL 2020-04-18 10:16:00 Brunilda Luevano [facility] (NA, K, CL, CO2, Medical Branch GLUCOSE, BUN, CREATININE, CA) LIPID PANEL 2020-04-17 17:32:00 [id number]TOTAL Medical Branch CHOLESTEROL, TRIGLYCERIDES, HDL) EKG-12 LEAD 2020-04-17 16:25:28 Milagros Courtney [facility] SERUM DRUG (IMMUNOASSAY) 2020-04-17 16:17:00 Estrella Joseph [facility] - COMPREHENSIVE DRUG Medical [facility] SCREEN PROTHROMBIN TIME / INR 2020-04-17 16:17:00 [facility] 2020-04-17 16:17:00 Opal [facility] N-TERMINAL PRO-BNP 2020-04-17 16:17:00 Opal [facility] XR CHEST 1 VW 2020-04-17 15:08:28 Milagros Courtney [facility] PHOSPHORUS 2020-04-17 15:07:00 Opal [facility] TROPONIN I 2020-04-17 15:07:00 Deepak Weber [facility] THYROID STIMULATING 2020-04-17 15:07:00 [facility] Branch COVID-19 (ID NOW RAPID 2020-04-17 13:14:00 Milagros Courtney [facility] TESTING) [facility] Branch ACUTE CARE VENOUS BLOOD 2020-04-17 13:10:00 Milagros Courtney [facility] GAS [facility] Branch EKG-12 LEAD 2020-04-17 13:04:30 Milagros Courtney [facility] EKG-12 LEAD 2020-04-17 12:46:15 Milagros Courtney [facility] CREATINE KINASE 2020-04-17 11:54:00 Milagros Courtney [facility] LIPASE 2020-04-17 11:54:00 Singer [facility] TROPONIN I 2020-04-17 11:54:00 Singer [facility] COMP. METABOLIC PANEL 2020-04-17 11:54:00 Murtaza Ramirez [facility] ([id number]) Medical Branch CBC WITH DIFFERENTIAL 2020-04-17 11:54:00 Singer [facility] GLYCOSYLATED HEMOGLOBIN 2020-04-17 11:54:00 Estrella Joseph [facility] (A1C) Medical Branch EKG-12 LEAD 2020-04-17 11:49:44 [facility] EKG-12 LEAD 2020-04-17 11:38:11 [facility] CREATINE KINASE 2020-04-09 08:58:00 Brett [facility] BASIC METABOLIC PANEL 2020-04-09 08:58:00 Brett [facility] (NA, K, CL, CO2, Medical Branch GLUCOSE, BUN, CREATININE, CA) CBC WITH DIFFERENTIAL 2020-04-09 08:58:00 Brett [facility] BASIC METABOLIC PANEL 2020-04-08 10:48:00 Mike Bob [facility] (NA, K, CL, CO2, Medical Branch GLUCOSE, BUN, CREATININE, CA) COVID-19 (ID NOW RAPID 2020-04-08 05:10:00 Yancy Crump [facility] TESTING) Medical Branch TROPONIN I 2020-04-08 04:22:00 Yancy Crump [facility] EKG-12 LEAD 2020-04-08 04:13:08 Rashawn Hillman [facility] EKG-12 LEAD 2020-04-08 04:08:34 Yancy Crump [facility] URINALYSIS 2020-04-08 01:57:00 Yancy Crump [facility] ADC / LCC - DRUG SCREEN 2020-04-08 01:57:00 Yancy Crump [facility] TRIAGE [facility] CREATINE KINASE 2020-04-08 01:18:00 Yancy Crump [facility] LIPASE 2020-04-08 01:18:00 Yancy Crump [facility] TROPONIN I 2020-04-08 01:18:00 Yancy Crump [facility] HEPATIC FUNCTION PANEL 2020-04-08 01:18:00 Yancy Crump [facility] ([id number]) (ALB,T.PRO,BILI Medical Branch T,BU/BC,ALT,AST,ALK PHOS) BASIC METABOLIC PANEL 2020-04-08 01:18:00 Yancy Crump [facility] (NA, K, CL, CO2, Medical Branch GLUCOSE, BUN, CREATININE, CA) CBC WITH DIFFERENTIAL 2020-04-08 01:18:00 Yancy Crump [facility] EKG-12 LEAD 2020-04-08 00:55:43 Yancy Crump [facility] NOTICE OF PRIVACY 2020-04-08 00:32:15 Doctor Unassigned, No Univ [facility] PRACTICES Name [facility] Branch CONSENT/REFUSAL FOR 2020-04-08 00:32:00 Doctor Unassigned, No Un [facility] DIAGNOSIS AND TREATMENT Name [facility] Encounters Start End Encounter Admission Attending Care Care Encounter Source Date/Time Date/Time Type Type Clinicians Facility Department ID 2021-10-23 2021-10-[address] [facility] [id number] Univers 12:44:00 13:18:00 SMILEY rubio [facility] 2021-10-23 2021-10-[address] [facility] [id number] Univers 12:44:00 13:18:00 Smiley GREEN [id number] i ty of [place] 4.2.7.[address] [place] [id number] 2020-04-17 2020-04-18 [facility] 1.2.840 .114 [id number] 06:30:30 11:35:00 Deepak Weber [id number] [place] [address] [place] [address] [id number] [facility] 2020-04-17 2020-04-18 Emergency Milagros Courtney [facility] 1.2.840 .114 [id number] Univers 06:30:30 11:35:00 Deepak Weber [id number] ity [facility] 4.2.7.2.[address] [place] [id number] 2020-04-17 2020-04-17 Emergency X SHERWIN [facility] ERT [id number] Univers 06:30:30 06:30:30 [facility] 2020-04-14 2020-04-14 Telephone BHAVIN Ramos [id number] 00:00:00 00:00:00 Sarah HICKS [id number] [facility] 4.2.7.2.686 [id number] 2020-04-14 2020-04-14 Telephone BHAVIN Ramos [id number] [facility] 00:00:00 00:00:00 Sarah HICKS [id number] [facility] 4.2.7.2.686 Max[place] [id number] [address] 2020-04-07 2020-04-09 [address] Crump [facility] 1.2.840 .114 [id number] [facility] 19:37:02 10:30:00 Mike Bob [id number] [facility] 4.2.7.2.686 [facility] [id number] [address] 2020-04-07 2020-04-09 [address] Crump [facility] 1.2.840 .114 [id number] 19:37:02 10:30:00 Mike Bob [id number] [place] 4.2.7.2.686 [place] [id number] [facility] 2020-04-07 2020-04-07 Emergency X ALISIA, [facility] ERT [id number] Univers 19:37:02 19:37:02 [facility] Results Test Description Test Time Test Comments Results Result Comments Source TROPONIN I 2020-04-18 13:30:00 Test Item Value Reference Range Interpretation Comme nts TROPONIN I (test code = 0.020 ng/mL See_Comment [Au tomated message] The [id number]) system which ge nerated this result tra nsmitted reference range : <=0.034. The reference r josias was not used to int erpret this result as normal/abnormal . MARIA LUZ (test code = MARIA LUZ) Equal or Less than 0.034 ng/ml---Normal ?Note: Cardiac troponin begins to rise 3-4 hours after the onset of ischemia. Repeat in 4-6 hours if the sample was drawn within 3-4 hours of the onset of the symptom and found normal. Between 0.035 and 0.120 ng/mL--- Borderline. Questionable myocardial injury or necrosis ? ?Note: Serial measurement may be necessary to confirm or exclude the diagnosis of myocardial injury or necrosis; Clinical correlation (symptoms, EKGs, imaging studies, and others) required; Repeat in 4-6 hours if clinically indicated. ? Equal or Higher than 0.121 ng/mL---Abnormal. Myocardial Injury or Necrosis Likely ? Biotin has been reported to cause a negative bias, interpret results relative to patient's use of biotin. ? Lab Interpretation (test Normal code = 22487-9) [facility] [id number] 11:02:00 Test Item Value Reference Range Interpretation Comments MAGNESIUM (test code = 3491249282) 2.0 mg/dL 1.7-2.4 Lab Interpretation (test code = Normal 85363-4) [facility] (NA, K, CL, CO2, GLUCOSE, BUN, CREATININE, CA)2020-04-18 11:02:00 Test Item Value Reference Range Interpretation Comments NA (test code = 138 mmol/L 135-145 5492583041) K (test code = 3.7 mmol/L 3.5-5 3508314249) CL (test code = 112 mmol/L 98-108 H 7426360586) CO2 TOTAL (test code = 22 mmol/L 23-31 L 3876567897) AGAP (test code = 2-16 1788590433) BUN (test code = 12 mg/dL 7-23 5760011030) GLUCOSE (test code = 112 mg/dL 70-110 H 8400454841) CREATININE (test code = 0.96 mg/dL 0.6-1.25 0045317404) CALCIUM (test code = 8.6 mg/dL 8.6-10.6 8738874978) eGFR Calculation mL/min/1.73m2 (Non-) (test code = 7835153448) eGFR Calculation mL/min/1.73m2 () (test code = 7131450063) MARIA LUZ (test code = MARIA LUZ) Association of Glomerular Filtration Rate (GFR) and Staging of Kidney Disease* + --+ --+ ------+| GFR (mL/min/1.73 m2) ?| With Kidney Damage ?| ?Without Kidney Damage+ --------+ --------+ +| ?>90 ?| ?Stage one ?| ? Normal ?+ ---+ ---+ -------+| ?60-89 ?| ?Stage two ?| ? Decreased GFR ? + --+ --+ ------+| ?30-59 ?| ?Stage three ?| ? Stage three ? + --+ --+ ------+| ?15-29 ?| ?Stage four ? | ? Stage four ?+ ---+ ---+ -------+| ?<15 (or dialysis) ? ?| ?Stage five ? | ? Stage five ?+ ---+ ---+ -------+ *Each stage assumes the associated GFR level has been in effect for at least three months. ?Stages 1 to 5, with or without kidney disease, indicate chronic kidney disease. Notes: Determination of stages one and two (with eGFR >59mL/min/1.73 m2) requires estimation of kidney damage for at least three months as defined by structural or functional abnormalities of the kidney, manifested by either:Pathological abnormalities or Markers of kidney damage (including abnormalities in the composition of the blood or urine or abnormalities in imaging tests). Lab Interpretation Abnormal (test code = 53381-2) [facility] 3 [id number] 22:11:00 Test Item Value Reference Range Interpretation Comments COMPA S (test code = Negative Negative 4410751624) BENZO S (test code = Negative Negative 1754687049) TRICYCLIC (test code = Negative Negative 2511086828) MARIA LUZ (test code = MARIA LUZ) Serum Drug Screen Cutoff Ranges Barbiturates ? ? - 3 mcg/mLBenzodiazepines ?- 50 ng/mLTCA ?- 300 ng/mL Test developed and characteristics determined by [facility] Laboratory Services. The results are to be used only for medical (i.e., treatment) purposes. Unconfirmed screening results must not be used for non-medical purposes (e.g., employment testing, legal testing). Lab Interpretation Normal (test code = 67502-8) [facility] (34236)(TOTAL CHOLESTEROL, TRIGLYCERIDES, HDL)2020-04-17 18:13:00 Test Item Value Reference Range Interpretation Comments CHOL (test code = 121 mg/dL 120-200 1686963369) HDL (test code = 42 mg/dL >40 9496901909) HDLC RATIO (test code = See_Comment [Au tomated message] [id number]) The system [employer] generated this result transmit nakita reference range : <=5.0. The refe rence range was not u sed to interpret th is result as normal/abnormal . TRIG (test code = 41 mg/dL 30-170 2958762473) LDL CHOL (test code = 71 mg/dL See_Comment [Auto mated message] 29222-9) The system [employer] generated this result transmit n[place] reference range : <=160. The refe rence range was not u sed to interpret th is result as normal/abnormal . VLDL (test code = 8 mg/dL 5-60 2346906196) Lab Interpretation (test Normal code = 09660-7) [id number] 17:06:00 Test Item Value Reference Range Interpretation Comments NT-proBNP (test code 51 pg/mL See_Comment [Autom ated = [id number]) message] The system which generated this result transmitted reference range : <=125. The reference range was not used to interpret this result as normal/abnormal . MARIA LUZ (test code = MARIA LUZ) Biotin has been reported to cause a negative bias, interpret results relative to patient's use of biotin. Lab Interpretation Normal (test code = 18533-0) [facility] STIMULATING [id number] 16:58:00 Test Item Value Reference Range Interpretation Comments TSH (test code = See_Comment [Automated message] 3414124366) The system [employer] generated this result transmitted ref erence range: 0.45 - 4 .70 mIU/L. The refe rence range was not u sed to interpret this result as normal/abnor mal. Lab Interpretation (test Normal code = 91542-0) [facility][id number] 16:56:00 Test Item Value Reference Interpretation Comments Range D-DIMER (test code = <0.27 See_Comment [Autom ated [id number]) message] The system which generated this result transmitted reference range : <0.41 ?g/mL (FEU). The reference range was not used to interpret this result as normal/abnormal . MARIA LUZ (test code = This test may be MARIA LUZ) used in conjunction with a clinical pretest probability (PTP) assessment model to exclude venous thromboembolism (VTE) in patients suspected of deep venous thrombosis (DVT) and pulmonary embolism (PE) A D-Dimer value less than 0.50 ?g/ml (FEU) has a negative predicative value of 96 to 100% (95% CI)and 97 to 100% (95% CI) as an aid in the diagnosis of deep vein thrombosis (DVT) and pulmonary embolism when there is low or moderate pretest probability of PE or DVT. D-Dimer values are expressed in initial fibrinogen equivalent units (FEU)" The assay results should be used with other information, including the clinical context, in forming a diagnosis. Lab Interpretation Normal (test code = 06247-7) [facility]thrombin Time / [id number] 16:43:00 Test Item Value Reference Range Interpretation Comments PROTIME PATIENT (test See_Comment [Auto mated message] code = 5964-2) The system wh ich generated this result transmitted ref erence range: 12.0 - 1 4.7 Seconds. The re ference range was not u sed to interpret this result as normal/abnor mal. INR (test code = 6301-6) Nor mal INR <1.1; Warfarin Therap eutic range 2.0 to 3. 0 or 2.5 to 3.5, dep ending upon the indica tions. Lab Interpretation (test Normal code = 60955-6) [facility] 1 [id number] 16:42:54 No acute cardiopulmonary abnormality. Preliminary Report Dictated by Resident: Heri Bob MD., have reviewed this study and agree with theabove report.XR CHEST 1 VW Comparison: None available Technique: AP radiographs of the chest History: N/V, Chest Pain Findings: The lungs are well expanded and clear. No pleural effusion, focalconsolidation, or pneumothorax is identified. The cardiomediastinal silhouette is normal in size. No acute osseous abnormality is present. [facility], Radiant Results Inft User - 04/17/2020 11:44 AM CDTXR CHEST 1 VWComparison: None availableTechnique: AP radiographs of the chestHistory: N/V, Chest Pain Findings:The lungs are well expanded and clear. No pleural effusion, focalconsolidation, or pneumothorax is identified. The cardiomediastinal silhouette is normal in size. No acute osseous abnormality is present.IMPRESSIONNo acute cardiopulmonary abnormality.Preliminary Report Dictated by Resident: Jodee Hui, Heri Aj MD., have reviewed this study and agree with theabove report.[facility] HospitalPhosphorus [id number] 16:09:00 Test Item Value Reference Range Interpretation Comments PHOSPHORUS (test code = 3345264059) 2.5 mg/dL 2.5-5 Lab Interpretation (test code = Normal 53920-4) [facility] Hospital[facility]cosylated Hemoglobin (A1C)2020-04-17 15:56:00 Test Item Value Reference Range Interpretation Comments HGB A1C (test code = 5.5 % 4-6 4548-4) MARIA LUZ (test code = MARIA LUZ) %A1C (NGSP) Interpretation (ADA)4.8-5.6 ? ? Normal or (Non-Diabetic Range)5.7-6.4 ? ? Increased Risk (Pre-Diabetic)>6.5 ?Diabetes Indicated Lab Interpretation Normal (test code = 41010-3) [facility] [id number] 15:39:00 Test Item Value Reference Range Interpretation Comments TROPONIN I (test 0.031 ng/mL See_Comment [Automated code = 8514539732) message] The system which generated this result transmitted reference range : <=0.034. The reference range was not used to interpret this result as normal/abnormal . MARIA LUZ (test code = Equal or Less than MARIA LUZ) 0.034 ng/ml---Normal ?Note: Cardiac troponin begins to rise 3-4 hours after the onset of ischemia. Repeat in 4-6 hours if the sample was drawn within 3-4 hours of the onset of the symptom and found normal. Between 0.035 and 0.120 ng/mL--- Borderline. Questionable myocardial injury or necrosis ? ?Note: Serial measurement may be necessary to confirm or exclude the diagnosis of myocardial injury or necrosis; Clinical correlation (symptoms, EKGs, imaging studies, and others) required; Repeat in 4-6 hours if clinically indicated. ? Equal or Higher than 0.121 ng/mL---Abnormal. Myocardial Injury or Necrosis Likely ? Biotin has been reported to cause a negative bias, interpret results relative to patient's use of biotin. ? Lab Interpretation Normal (test code = 90881-0) [facility] (ID NOW RAPID TESTING)2020-04-17 14:00:00 Test Item Value Reference Range Interpretation Comments SARS-CoV-2 Rapid ID NOW Not Detected Not Detected (test code = 11652-7) MARIA LUZ (test code = MARIA LUZ) ID NOW COVID-19 Assay is an isothermal nucleic acid amplification test intended for the qualitative detection of nucleic acid from SARS-CoV-2 viral RNA in nasopharyngeal (WIRELESS STORE MANAGER) specimens. It is used under Emergency Use Authorization (EUA) by FDA. The limit of detection (LOD) of the assay is 125 Genome Equivalents/mL. A positive result is indicative of the presence of SARS-CoV-2 RNA. ?Clinical correlation with patient history and other diagnostic information is necessary to determine patient infection status. A negative (Not Detected) result does not preclude SARS-CoV-2 infection. In patients with clinical symptoms and other tests that are consistent with SARS-CoV-2 infection, negative results should be treated as presumptive negative and a new specimen should be tested with alternative PCR molecular test. Invalid: Please collect a new specimen for repeat patient testing if clinically indicated. Lab Interpretation Normal (test code = 83746-9) [facility] CARE VENOUS BLOOD [id number] 13:25:00 Test Item Value Reference Range Interpretation Comments PH (test code = 7.32-7.42 4283520481) PCO2 NAS (test code = See_Comment L [Auto mated message] 4447332545) The system [employer] generated this result transmitted ref erence range: 41 - 51 mmHg. The reference r josias was not used to interpret this result as normal/abnor mal. PO2 NAS (test code = See_Comment [Autom ated message] 1092750068) The system [employer] generated this result transmitted ref erence range: 25 - 40 mmHg. The reference r josias was not used to interpret this result as normal/abnor mal. HCO3 NAS (test code = See_Comment L [Auto mated message] 3691420445) The system [employer] generated this result transmitted ref erence range: 24 - 28 mEq/L. The reference r josias was not used to interpret this result as normal/abnor mal. AC VBE(BEAKER) (test mEq/L code = 2364516350) Lab Interpretation (test Abnormal code = 65207-0) [facility]CREATINE [id number] 13:01:00 Test Item Value Reference Range Interpretation Comments CK (test code = 8267414233) 174 U/L 33-194 Lab Interpretation (test code = Normal 58079-5) [facility] HospitalCBC WITH [id number] 12:32:00 Test Item Value Reference Range Interpretation Comments WBC (test code = See_Comment H [Automated 6690-2) message] The sy stem which generated this result transmitted reference range : 4.20 - 10.70 10*3/?L. The reference range was not used to interpret this result as normal/abnormal . RBC (test code = See_Comment [Automated 789-8) message] The sy stem which generated this result transmitted reference range : 4.26 - 5.52 10*6/?L. The reference range was not used to interpret this result as normal/abnormal . HGB (test code = 16.4 g/dL 12.2-16.4 718-7) HCT (test code = 45.9 % 38.4-49.3 4544-3) MCV (test code = 90.4 fL 81.7-95.6 787-2) MCH (test code = 32.3 pg 26.1-32.7 785-6) MCHC (test code = 35.7 g/dL 31.2-35 H 786-4) RDW-SD (test code = 43.5 fL 38.5-51.6 96591-1) RDW-CV (test code = 12.9 % 12.1-15.4 788-0) PLT (test code = See_Comment [Automated 777-3) message] The sy stem which generated this result transmitted reference range : 150 - 328 10*3/ ?L. The reference r josias was not used to interpret this result as normal/abnormal . MPV (test code = 11.6 fL 9.8-13 91204-6) NRBC/100 WBC (test See_Comment [Automat ed code = 6694148488) message] The system which generated this result transmitted reference range : 0.0 - 10.0 /100 WBCs. The refer ence range was not u sed to interpret th is result as normal/abnormal . NRBC x10^3 (test code <0.01 See_Comment [Auto mated = 6900546261) message] The s ystem which generated this result transmitted reference range : 10*3/?L. The reference range was not used to interpret this result as normal/abnormal . GRAN MAT (NEUT) % 43.3 % (test code = 770-8) IMM GRAN % (test code 0.60 % = 6023493944) LYMPH % (test code = 46.1 % 736-9) MONO % (test code = 8.3 % 5905-5) EOS % (test code = 1.3 % 713-8) BASO % (test code = 0.4 % 706-2) GRAN MAT x10^3(ANC) 5.12 10*3/uL 1.99-6.95 (test code = 6794154908) IMM GRAN x10^3 (test 0.07 10*3/uL 0-0.06 H code = 0391140170) LYMPH x10^3 (test code 5.45 10*3/uL 1.09-3.23 H = 731-0) MONO x10^3 (test code 0.98 10*3/uL 0.36-1.02 = 742-7) EOS x10^3 (test code = 0.15 10*3/uL 0.06-0.53 711-2) BASO x10^3 (test code 0.05 10*3/uL 0.01-0.09 = 704-7) Lab Interpretation Abnormal (test code = 59459-0) [facility] [id number] 12:29:00 Test Item Value Reference Range Interpretation Comments TROPONIN I (test 0.038 ng/mL See_Comment H [Automated code = 0022481398) message] The system which generated this result transmitted reference range : <=0.034. The reference range was not used to interpret this result as normal/abnormal . MARIA LUZ (test code = Equal or Less than MARIA LUZ) 0.034 ng/ml---Normal ?Note: Cardiac troponin begins to rise 3-4 hours after the onset of ischemia. Repeat in 4-6 hours if the sample was drawn within 3-4 hours of the onset of the symptom and found normal. Between 0.035 and 0.120 ng/mL--- Borderline. Questionable myocardial injury or necrosis ? ?Note: Serial measurement may be necessary to confirm or exclude the diagnosis of myocardial injury or necrosis; Clinical correlation (symptoms, EKGs, imaging studies, and others) required; Repeat in 4-6 hours if clinically indicated. ? Equal or Higher than 0.121 ng/mL---Abnormal. Myocardial Injury or Necrosis Likely ? Biotin has been reported to cause a negative bias, interpret results relative to patient's use of biotin. ? Lab Interpretation Abnormal (test code = 95929-2) [facility]COMP. METABOLIC PANEL (04081)2020-04-17 12:18:00 Test Item Value Reference Range Interpretation Comments NA (test code = 135 mmol/L 135-145 9900523689) K (test code = 3.6 mmol/L 3.5-5 2623274089) CL (test code = 106 mmol/L 98-108 7450297255) CO2 TOTAL (test code = 16 mmol/L 23-31 L 1928243503) AGAP (test code = 2-16 7609176366) BUN (test code = 29 mg/dL 7-23 H 6629418703) GLUCOSE (test code = 157 mg/dL 70-110 H 2590043644) CREATININE (test code = 1.53 mg/dL 0.6-1.25 H 9767643866) TOTAL BILI (test code = 0.4 mg/dL 0.1-1.5 0233368034) CALCIUM (test code = 9.5 mg/dL 8.6-10.6 7336470136) T PROTEIN (test code = 8.3 g/dL 6.3-8.2 H 3231602442) ALBUMIN (test code = 4.7 g/dL 3.5-5 7216372252) ALK PHOS (test code = 74 U/L 34-122 2296565589) ALTv (test code = 29 U/L 5-50 1742-6) AST(SGOT) (test code = 28 U/L 13-40 5285951460) eGFR Calculation mL/min/1.73m2 (Non-) (test code = 6530855475) eGFR Calculation mL/min/1.73m2 () (test code = 8249302327) MARIA LUZ (test code = MARIA LUZ) Association of Glomerular Filtration Rate (GFR) and Staging of Kidney Disease* + --+ --+ ------+| GFR (mL/min/1.73 m2) ?| With Kidney Damage ?| ?Without Kidney Damage+ --------+ --------+ +| ?>90 ?| ?Stage one ?| ? Normal ?+ ---+ ---+ -------+| ?60-89 ?| ?Stage two ?| ? Decreased GFR ? + --+ --+ ------+| ?30-59 ?| ?Stage three ?| ? Stage three ? + --+ --+ ------+| ?15-29 ?| ?Stage four ? | ? Stage four ?+ ---+ ---+ -------+| ?<15 (or dialysis) ? ?| ?Stage five ? | ? Stage five ?+ ---+ ---+ -------+ *Each stage assumes the associated GFR level has been in effect for at least three months. ?Stages 1 to 5, with or without kidney disease, indicate chronic kidney disease. Notes: Determination of stages one and two (with eGFR >59mL/min/1.73 m2) requires estimation of kidney damage for at least three months as defined by structural or functional abnormalities of the kidney, manifested by either:Pathological abnormalities or Markers of kidney damage (including abnormalities in the composition of the blood or urine or abnormalities in imaging tests). Lab Interpretation Abnormal (test code = 73589-7) [facility] HospitalLIPASE, [id number] 12:17:00 Test Item Value Reference Range Interpretation Comments LIPASE (test code = 3858582024) 102 U/L 0-220 Lab Interpretation (test code = Normal 92638-6) [facility] (NA, K, CL, CO2, GLUCOSE, BUN, CREATININE, CA)2020-04-09 11:06:00 Test Item Value Reference Range Interpretation Comments NA (test code = 139 mmol/L 135-145 4281656765) K (test code = 4.1 mmol/L 3.5-5 2002733647) CL (test code = 111 mmol/L 98-108 H 2022789165) CO2 TOTAL (test code = 24 mmol/L 23-31 3748213095) AGAP (test code = 2-16 6544323930) BUN (test code = 14 mg/dL 7-23 2565908379) GLUCOSE (test code = 98 mg/dL 70-110 7206465411) CREATININE (test code = 0.90 mg/dL 0.6-1.25 7467163959) CALCIUM (test code = 8.5 mg/dL 8.6-10.6 L 8715752998) eGFR Calculation mL/min/1.73m2 (Non-) (test code = 2335790864) eGFR Calculation mL/min/1.73m2 () (test code = 9391141042) MARIA LUZ (test code = MARIA LUZ) Association of Glomerular Filtration Rate (GFR) and Staging of Kidney Disease* + --+ --+ ------+| GFR (mL/min/1.73 m2) ?| With Kidney Damage ?| ?Without Kidney Damage+ --------+ --------+ +| ?>90 ?| ?Stage one ?| ? Normal ?+ ---+ ---+ -------+| ?60-89 ?| ?Stage two ?| ? Decreased GFR ? + --+ --+ ------+| ?30-59 ?| ?Stage three ?| ? Stage three ? + --+ --+ ------+| ?15-29 ?| ?Stage four ? | ? Stage four ?+ ---+ ---+ -------+| ?<15 (or dialysis) ? ?| ?Stage five ? | ? Stage five ?+ ---+ ---+ -------+ *Each stage assumes the associated GFR level has been in effect for at least three months. ?Stages 1 to 5, with or without kidney disease, indicate chronic kidney disease. Notes: Determination of stages one and two (with eGFR >59mL/min/1.73 m2) requires estimation of kidney damage for at least three months as defined by structural or functional abnormalities of the kidney, manifested by either:Pathological abnormalities or Markers of kidney damage (including abnormalities in the composition of the blood or urine or abnormalities in imaging tests). Lab Interpretation Abnormal (test code = 34625-1) [facility] WITH [id number] 10:49:00 Test Item Value Reference Range Interpretation Comments WBC (test code = See_Comment H [Automated 3890-2) message] The sy stem which generated this result transmitted reference range : 4.20 - 10.70 10*3/?L. The reference range was not used to interpret this result as normal/abnormal . RBC (test code = See_Comment L [Automated 299-8) message] The sy stem which generated this result transmitted reference range : 4.26 - 5.52 10*6/?L. The reference range was not used to interpret this result as normal/abnormal . HGB (test code = 13.3 g/dL 12.2-16.4 718-7) HCT (test code = 38.4 % 38.4-49.3 4544-3) MCV (test code = 92.8 fL 81.7-95.6 787-2) MCH (test code = 32.1 pg 26.1-32.7 785-6) MCHC (test code = 34.6 g/dL 31.2-35 786-4) RDW-SD (test code = 47.0 fL 38.5-51.6 75579-2) RDW-CV (test code = 13.7 % 12.1-15.4 788-0) PLT (test code = See_Comment L [Automated 777-3) message] The sy stem which generated this result transmitted reference range : 150 - 328 10*3/ ?L. The reference r josias was not used to interpret this result as normal/abnormal . MPV (test code = 12.2 fL 9.8-13 59366-8) NRBC/100 WBC (test See_Comment [Automat ed code = 9906709034) message] The system which generated this result transmitted reference range : 0.0 - 10.0 /100 WBCs. The refer ence range was not u sed to interpret th is result as normal/abnormal . NRBC x10^3 (test code <0.01 See_Comment [Auto mated = 7871230100) message] The s ystem which generated this result transmitted reference range : 10*3/?L. The reference range was not used to interpret this result as normal/abnormal . GRAN MAT (NEUT) % 61.9 % (test code = 770-8) IMM GRAN % (test code 0.40 % = 3253664049) LYMPH % (test code = 30.3 % 736-9) MONO % (test code = 6.9 % 5905-5) EOS % (test code = 0.2 % 713-8) BASO % (test code = 0.3 % 706-2) GRAN MAT x10^3(ANC) 7.44 10*3/uL 1.99-6.95 H (test code = 0563330176) IMM GRAN x10^3 (test 0.05 10*3/uL 0-0.06 code = 4662812546) LYMPH x10^3 (test code 3.64 10*3/uL 1.09-3.23 H = 731-0) MONO x10^3 (test code 0.83 10*3/uL 0.36-1.02 = 742-7) EOS x10^3 (test code = <0.03 0.06-0.53 L 711-2) BASO x10^3 (test code 0.04 10*3/uL 0.01-0.09 = 704-7) Lab Interpretation Abnormal (test code = 43361-8) [facility]AT[facility] [id number] 10:38:00 Test Item Value Reference Range Interpretation Comments CK (test code = 0653159885) 569 U/L 33-194 H Lab Interpretation (test code = Abnormal 55792-2) [facility] (NA, K, CL, CO2, GLUCOSE, BUN, CREATININE, CA)2020-04-08 11:23:00 Test Item Value Reference Range Interpretation Comments NA (test code = 136 mmol/L 135-145 3268717970) K (test code = 5.2 mmol/L 3.5-5 H 9123445308) CL (test code = 107 mmol/L 98-108 3298790357) CO2 TOTAL (test code = 22 mmol/L 23-31 L 3743894343) AGAP (test code = 2-16 0401663709) BUN (test code = 24 mg/dL 7-23 H 9100090973) GLUCOSE (test code = 132 mg/dL 70-110 H 9110737960) CREATININE (test code = 1.30 mg/dL 0.6-1.25 H 8132750999) CALCIUM (test code = 8.8 mg/dL 8.6-10.6 1066772323) eGFR Calculation mL/min/1.73m2 (Non-) (test code = 0143398192) eGFR Calculation mL/min/1.73m2 () (test code = 5836633570) MARIA LUZ (test code = MARIA LUZ) Association of Glomerular Filtration Rate (GFR) and Staging of Kidney Disease* + --+ --+ ------+| GFR (mL/min/1.73 m2) ?| With Kidney Damage ?| ?Without Kidney Damage+ --------+ --------+ +| ?>90 ?| ?Stage one ?| ? Normal ?+ ---+ ---+ -------+| ?60-89 ?| ?Stage two ?| ? Decreased GFR ? + --+ --+ ------+| ?30-59 ?| ?Stage three ?| ? Stage three ? + --+ --+ ------+| ?15-29 ?| ?Stage four ? | ? Stage four ?+ ---+ ---+ -------+| ?<15 (or dialysis) ? ?| ?Stage five ? | ? Stage five ?+ ---+ ---+ -------+ *Each stage assumes the associated GFR level has been in effect for at least three months. ?Stages 1 to 5, with or without kidney disease, indicate chronic kidney disease. Notes: Determination of stages one and two (with eGFR >59mL/min/1.73 m2) requires estimation of kidney damage for at least three months as defined by structural or functional abnormalities of the kidney, manifested by either:Pathological abnormalities or Markers of kidney damage (including abnormalities in the composition of the blood or urine or abnormalities in imaging tests). Lab Interpretation Abnormal (test code = 71332-2) [facility] (ID NOW RAPID TESTING)2020-04-08 05:54:00 Test Item Value Reference Range Interpretation Comments SARS-CoV-2 Rapid ID NOW Not Detected Not Detected (test code = 61227-9) MARIA LUZ (test code = MARIA LUZ) ID NOW COVID-19 Assay is an isothermal nucleic acid amplification test intended for the qualitative detection of nucleic acid from SARS-CoV-2 viral RNA in nasopharyngeal (WIRELESS STORE MANAGER) specimens. It is used under Emergency Use Authorization (EUA) by FDA. The limit of detection (LOD) of the assay is 125 Genome Equivalents/mL. A positive result is indicative of the presence of SARS-CoV-2 RNA. ?Clinical correlation with patient history and other diagnostic information is necessary to determine patient infection status. A negative (Not Detected) result does not preclude SARS-CoV-2 infection. In patients with clinical symptoms and other tests that are consistent with SARS-CoV-2 infection, negative results should be treated as presumptive negative and a new specimen should be tested with alternative PCR molecular test. Invalid: Please collect a new specimen for repeat patient testing if clinically indicated. Lab Interpretation Normal (test code = 06280-8) [facility] [id number] 05:01:00 Test Item Value Reference Range Interpretation Comments TROPONIN I (test <0.012 See_Comment [Automated code = 9133017636) message] The system which generated this result transmitted reference range : <=0.034 ng/mL. The reference range was not used to interpr et this result as normal/abnormal . MARIA LUZ (test code = Equal or Less than MARIA LUZ) 0.034 ng/ml---Normal ?Note: Cardiac troponin begins to rise 3-4 hours after the onset of ischemia. Repeat in 4-6 hours if the sample was drawn within 3-4 hours of the onset of the symptom and found normal. Between 0.035 and 0.120 ng/mL--- Borderline. Questionable myocardial injury or necrosis ? ?Note: Serial measurement may be necessary to confirm or exclude the diagnosis of myocardial injury or necrosis; Clinical correlation (symptoms, EKGs, imaging studies, and others) required; Repeat in 4-6 hours if clinically indicated. ? Equal or Higher than 0.121 ng/mL---Abnormal. Myocardial Injury or Necrosis Likely ? Biotin has been reported to cause a negative bias, interpret results relative to patient's use of biotin. ? Lab Interpretation Normal (test code = 47250-2) [facility]You [id number] 04:38:00 Test Item Value Reference Range Interpretation Comments TROPONIN I (test <0.012 See_Comment [Automated code = 7239045896) message] The system which generated this result transmitted reference range : <=0.034 ng/mL. The reference range was not used to interpr et this result as normal/abnormal . MARIA LUZ (test code = Equal or Less than MARIA LUZ) 0.034 ng/ml---Normal ?Note: Cardiac troponin begins to rise 3-4 hours after the onset of ischemia. Repeat in 4-6 hours if the sample was drawn within 3-4 hours of the onset of the symptom and found normal. Between 0.035 and 0.120 ng/mL--- Borderline. Questionable myocardial injury or necrosis ? ?Note: Serial measurement may be necessary to confirm or exclude the diagnosis of myocardial injury or necrosis; Clinical correlation (symptoms, EKGs, imaging studies, and others) required; Repeat in 4-6 hours if clinically indicated. ? Equal or Higher than 0.121 ng/mL---Abnormal. Myocardial Injury or Necrosis Likely ? Biotin has been reported to cause a negative bias, interpret results relative to patient's use of biotin. ? Lab Interpretation Normal (test code = 76621-2) [facility] Metabolic Panel (NA, K, CL, CO2, GLUCOSE, BUN, CREATININE, CA)2020-04-08 04:28:00 Test Item Value Reference Range Interpretation Comments NA (test code = 136 mmol/L 135-145 2478656514) K (test code = 4.3 mmol/L 3.5-5 4331127901) CL (test code = 97 mmol/L 98-108 L 6332028533) CO2 TOTAL (test code = 22 mmol/L 23-31 L 2937174727) AGAP (test code = 2-16 H 5674603068) BUN (test code = 31 mg/dL 7-23 H 3821509984) GLUCOSE (test code = 163 mg/dL 70-110 H 1896690116) CREATININE (test code = 2.80 mg/dL 0.6-1.25 H 7981065466) CALCIUM (test code = 10.9 mg/dL 8.6-10.6 H 3123888835) eGFR Calculation mL/min/1.73m2 (Non-) (test code = 2748242184) eGFR Calculation mL/min/1.73m2 () (test code = 1951829588) MARIA LUZ (test code = MARIA LUZ) Association of Glomerular Filtration Rate (GFR) and Staging of Kidney Disease* + --+ --+ ------+| GFR (mL/min/1.73 m2) ?| With Kidney Damage ?| ?Without Kidney Damage+ --------+ --------+ +| ?>90 ?| ?Stage one ?| ? Normal ?+ ---+ ---+ -------+| ?60-89 ?| ?Stage two ?| ? Decreased GFR ? + --+ --+ ------+| ?30-59 ?| ?Stage three ?| ? Stage three ? + --+ --+ ------+| ?15-29 ?| ?Stage four ? | ? Stage four ?+ ---+ ---+ -------+| ?<15 (or dialysis) ? ?| ?Stage five ? | ? Stage five ?+ ---+ ---+ -------+ *Each stage assumes the associated GFR level has been in effect for at least three months. ?Stages 1 to 5, with or without kidney disease, indicate chronic kidney disease. Notes: Determination of stages one and two (with eGFR >59mL/min/1.73 m2) requires estimation of kidney damage for at least three months as defined by structural or functional abnormalities of the kidney, manifested by either:Pathological abnormalities or Markers of kidney damage (including abnormalities in the composition of the blood or urine or abnormalities in imaging tests). Lab Interpretation Abnormal (test code = 82238-9) [facility] (ALB, T.PRO, BILI T, BU/BC, ALT, AST, ALK PHOS)2020-04-08 04:28:00 Test Item Value Reference Range Interpretation Comments TOTAL BILI (test code = 9919116565) 0.6 mg/dL 0.1-1.1 BILI UNCON (test code = 3630853708) 0.6 mg/dL 0.1-1.1 BILI CONJ (test code = 5361529014) 0.0 mg/dL 0-0.3 T PROTEIN (test code = 0314109025) 10.4 g/dL 6.3-8.2 H ALBUMIN (test code = 8826481424) 5.8 g/dL 3.5-5 H ALK PHOS (test code = 1157343764) 104 U/L 34-122 ALTv (test code = 1742-6) 35 U/L 5-50 AST(SGOT) (test code = 5494864567) 41 U/L 13-40 H Lab Interpretation (test code = Abnormal 14244-0) [facility] [id number] 04:28:00 Test Item Value Reference Range Interpretation Comments LIPASE (test code = 7168324508) 22 U/L 0-220 Lab Interpretation (test code = Normal 38179-2) [facility] [id number] 04:27:00 Test Item Value Reference Range Interpretation Comments CK (test code = 2139588884) 440 U/L 33-194 H Lab Interpretation (test code = Abnormal 75122-8) [facility] WITH [id number] 04:16:00 Test Item Value Reference Range Interpretation Comments WBC (test code = See_Comment H [Automated 6690-2) message] The system which generated this result transmit nakita reference range : 4.20 - 10.70 10*3/?L. The reference range was not used to interpret this result as normal/abnormal . RBC (test code = See_Comment [Automated 789-8) message] The system which generated this result transmit nakita reference range : 4.26 - 5.52 10*6/?L. The reference range was not used to interpret this result as normal/abnormal . HGB (test code = 17.4 g/dL 12.2-16.4 H 718-7) HCT (test code = 49.3 % 38.4-49.3 4544-3) MCV (test code = 90.5 fL 81.7-95.6 787-2) MCH (test code = 31.9 pg 26.1-32.7 785-6) MCHC (test code = 35.3 g/dL 31.2-35 H 786-4) RDW-SD (test code = 44.6 fL 38.5-51.6 29472-5) RDW-CV (test code = 13.4 % 12.1-15.4 788-0) PLT (test code = See_Comment [Automated 777-3) message] The system which generated this result transmit nakita reference range : 150 - 328 10*3/ ?L. The reference range was not u sed to interpret th is result as normal/abnormal . MPV (test code = 12.7 fL 9.8-13 33964-6) NRBC/100 WBC (test See_Comment [Automat ed code = 0111171673) message] The system which generated this result transmit nakita reference range : 0.0 - 10.0 /100 WBCs. The reference range was not used to interpret this result as normal/abnormal . NRBC x10^3 (test code <0.01 See_Comment [Auto mated = 4196604366) message] The system which generated this result transmit nakita reference range : 10*3/?L. The reference range was not used to interpret this result as normal/abnormal . GRAN MAT (NEUT) % 81.0 % (test code = 770-8) IMM GRAN % (test code 0.80 % = 3602897174) LYMPH % (test code = 14.8 % 736-9) MONO % (test code = 2.9 % 5905-5) EOS % (test code = 0.1 % 713-8) BASO % (test code = 0.4 % 706-2) GRAN MAT x10^3(ANC) 12.79 10*3/uL 1.99-6.95 H (test code = 2250262093) IMM GRAN x10^3 (test 0.12 10*3/uL 0-0.06 H code = 5262379549) LYMPH x10^3 (test code 2.34 10*3/uL 1.09-3.23 = 731-0) MONO x10^3 (test code 0.46 10*3/uL 0.36-1.02 = 742-7) EOS x10^3 (test code = <0.03 0.06-0.53 L 711-2) BASO x10^3 (test code 0.06 10*3/uL 0.01-0.09 = 704-7) Lab Interpretation Abnormal (test code = 04901-8) [facility] / [facility] - DRUG SCREEN [id number] 02:25:00 Test Item Value Reference Range Interpretation Comments BENZO U (test code = Negative Negative 0699064157) COMPA U (test code = Negative Negative 3207121296) AMPHET (test code = Negative Negative 2955746887) THC (test code = Negative Negative 2867137283) METHADONE (test code = Negative Negative 8908351613) Meth U (test code = Presumptive Positive Negative A 4906969208) OPIATES (test code = Negative Negative 1696030270) Cocaine Metabolite (test Presumptive Positive Negative A code = 5368247807) PROPOXY (test code = Negative Negative 5322060701) Tric U (test code = Negative Negative 0161147886) PCP (test code = Negative Negative 1824316903) OXYCOD (test code = Negative Negative 3894600488) MARIA LUZ (test code = MARIA LUZ) Urine Drug Cutoff Ranges Benzodiazepines: ? ? 150 ng/mLBarbiturates: ?200 ng/mLAmphetamine: ? 500 ng/mLCannabinoids: ?50 ?ng/mLMethadone: ? 200 ng/mLMethamphetamine: ? ? 500 ng/mL Opiates: ? 100 ng/mL or 2000 ng/mLCocaine: ? 150 ng/mLPropoxyphene: ?300 ng/mLTricyclics: ?300 ng/mLOxycodone: ? 100 ng/mLPCP: ? 25 ?ng/mL The results are to be used only for medical (i.e., treatment) purposes. Unconfirmed screening results must not be used for non-medical purposes (e.g., employment testing, legal testing). Lab Interpretation (test Abnormal code = 40496-3) [facility] 02:19:00 Test Item Value Reference Range Interpretation Comments APPEARANCE (test code = Cloudy Clear A 8861407464) COLOR (test code = Reyna Yellow A 6154314070) PH (test code = 4.8-8.0 7244549354) SP GRAVITY (test code = 1.003-1.030 0685509022) GLU U QUAL (test code = Normal Normal 8212324918) BLOOD (test code = Negative Negative INTERFERE NCE FROM 2843393413) ASCORBIC ACID M AY CAUSE FALSE NEG ATIVE RESULT KETONES (test code = 5 mg/dL Negative A 1046311299) PROTEIN (test code = 100 mg/dL Negative A 2887-8) UROBILIN (test code = 2.0 mg/dL Normal A 8444911361) BILIRUBIN (test code = Negative Negative 7930956661) NITRITE (test code = Negative Negative 4947359741) [place] (test code = Negative Negative 7488283378) RBC/HPF (test code = <1 See_Comment [Autom ated message] 8018791330) The system [employer] generated this result transmitted ref erence range: 0 - 3 HP F. The reference range was not used to int erpret this result as normal/abnormal . WBC/HPF (test code = See_Comment [Autom ated message] 1732983446) The system [employer] generated this result transmitted ref erence range: 0 - 5 HP F. The reference range was not used to int erpret this result as normal/abnormal . BACTERIA (test code = Few Negative A 2770493325) MUCOUS (test code = Moderate Negative LPF A 6731582348) SQ EPITH (test code = HPF 3783683677) Lab Interpretation Abnormal (test code = 09772-5) [facility]
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
[2021-11-22 05:17] VITALS: O2SAT 99
[2021-11-22 05:18] VITALS: BP 144/98
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
== END 2021-11-22 05:11 | disposition home or self-care (01) ==
LOC: ER 01:10
DX: M25.512 Pain in left shoulder (principal); M25.511 Pain in right shoulder; S09.90XA Unspecified injury of head, initial encounter; Y09 Assault by unspecified means; Y92.009 Unspecified place in unspecified non-institutional (private) residence as the place of occurrence of the external cause
CPT/HCPCS: 70450; 72125; 99284

== ENCOUNTER 2023-09-16 17:11 | Emergency (ER) | payer OTHER, SELFPAY ==
--- OUTSIDE RECORDS SUMMARY | 2023-09-16 17:16 | XMS REPORT | Continuity of Care Document ---
Author Name Unknown Address [address] [facility] [address] [place] [address] [facility] Address [address] [facility] [place] [address] Care Team Providers Care Attending Radiologist Name Role Phone PCP, PATIENT DOES NOT HAVE A Primary Care Physic nadiya Unavailable OSITO HILLMAN Attending Clinician Unavailable Osito Hillman MD Attending Clinician [phone] Jcarlos Mora Attending Clinician Unavailable MILAGROS COURTNEY Attending Clinician Unavailable Milagros Courtney MD Attending Clinician [phone] RAMIRO TIPTON Attending Clinician Unavailable Ramiro Steiner S Attending Clinician [phone] YANCY CRUMP Attending Clinician Unavailable Yancy Crump NP Attending Clinician + [phone] MURTAZA RAMIREZ Attending Clinician Unavailable Emily Watt MD Attending Clinician [phone] Murtaza Ramirez DO Attending Clinician [phone] HARSHAD LOWE Attending Clinician Unavailable Harshad Morales Attending Clinician [phone] KENIA ALCALA Attending Clinician UnavailKenia Early DO Attending Clinician SMILEY WELCH Attending Clinician Unavailable Smiley Welch MD Attending Clinician [phone] Deepak Weber MD Attending Clinician [phone] Sarah Ramos Attending Clinician [phone] Mike Bob MD Attending Clinician [phone] OSITO HILLMAN Admitting Clinician Unavailable Physician, No Primary or Family Admitting Clinic nadiya Unavailable EMILY WATT Admitting Clinician Unavailab HARSHAD Arzola Admitting Clinician Unavailable Tia ROSALES, Deepak Admitting Clinician [phone] Mike Bob MD Admitting Clinician [phone] Payers Payer Name Policy Type Policy Number Effective Date Expirati on Date Source [employer] COMM [id number] 2023 00:00:00 MEDICAID SSI PENDING PENDING 2023 00:00:00 2023 00:00:00 Problems Condition Name Condition Details Condition Category Status Onset Date Resolution Date Last Treatment Date Treating Clinician Comments Source Intractabl e vomiting with nausea Intractabl e vomiting with nausea Disease Active 04-17 00:00: 00 [facility] Essential hypertensi on Essential hypertensi on Disease Active 04-17 00:00: 00 [facility] Troponin I above reference range Troponin I above reference range Disease Active 04-17 00:00: 00 [facility] CAESAR (acute kidney injury) CAESAR (acute kidney injury) Disease Active 04-08 00:00: 00 [facility] Allergies, Adverse Reactions, Alerts Allergy Name Allergy Type Status Severity Reaction(s) Onset Date Inactive Date Treating Clinician Comments Source No Known Allergie s DA Active U 06-14 00:00: 00 [facility] NO KNOWN ALLERGIE S Drug Class Active [facility] Social History Social Habit Start Date Stop Date Quantity Comments Source History of tobacco use Smokes tobacco daily [facility] History of Social function 2023-06-16 00:00:00 2023-06-16 00:00:00 [facility] Exposure to SARS-CoV-2 (event) 2023-01-30 00:00:00 2023-02-09 20:59:[address] [facility] Tobacco use and exposure 2020-04-08 00:00:00 2020-04-08 00:00:00 Smokeless tobacco non-user [facility] Sex Assigned At 1980 00:00:00 1980 00:00:00 [facility] Smoking Status Start Date Stop Date Source Smokes tobacco daily 2020-04-08 00:00:00 [facility] Medications Ordered Medication Name Filled Medication Name Start Date Stop Date Current Medication? Ordering Clinician Indication Dosage Frequency Signature (SIG) Comments Components Source ibuprofen (IBU) tablet 600 mg 06-16 18:30: 00 06-16 18:40 :00 No 600mg 600 mg, Oral, ONCE, 1 dose, On 06/16/23 at 1330, [facility] acetaminoph en (TYLENOL) tablet 650 mg 06-16 17:45: 00 06-16 17:47 :00 No 650mg 650 mg, Oral, ONCE, 1 dose, On 06/16/23 at 1245, [facility] cloNIDine (CATAPRES) tablet 0.1 mg 06-16 17:45: 00 06-16 17:48 :00 No .1mg 0.1 mg, Oral, ONCE, 1 dose, On 06/16/23 at 1245, STAT [facility] iopamidol (ISOVUE 370-500 mL) injection 90 mL 06-16 14:20: 00 06-16 14:45 :00 No [id number] 90mL 90 mL, Intravenou s, ONCE, 1 dose, On 06/16/23 at 0945, Routine [facility] haloperidol lactate (HALDOL) injection 2.5 mg 06-16 14:15: 00 06-16 14:17 :00 No 2.5mg 2.5 mg, Intravenou s, ONCE, 1 dose, On 06/16/23 at 0915, STAT [facility] NaCl 0.9% (NS) bolus infusion 1,000 mL 06-16 13:45: 00 06-16 17:38 :00 No 1000mL at 999 mL/hr, 1,000 mL, IV Infusion, ONCE, 1 dose, On 06/16/23 at 0845, JUNE [facility] amoxicillin 500 mg capsule 05-01 00:00: 00 Yes [id number] 500mg Take 1 capsule by mouth in the morning and 1 capsule at noon and 1 capsule in the evening. [facility] ibuprofen 800 mg tablet 05-01 00:00: 00 Yes [id number] 800mg Take 1 tablet by mouth every 6 (six) hours as needed for Pain (scale 4-6). [facility] amoxicillin 500 mg capsule 05-01 00:00: 00 Yes [id number] 500mg Take 1 capsule by mouth in the morning and 1 capsule at noon and 1 capsule in the evening. [facility] ibuprofen 800 mg tablet 05-01 00:00: 00 Yes [id number] 800mg Take 1 tablet by mouth every 6 (six) hours as needed for Pain (scale 4-6). [facility] traMADoL (ULTRAM) tablet 50 mg 03-22 08:30: 00 03-22 07:33 :00 No 50mg 50 mg, Oral, ONCE, 1 dose, On Erika 03/22/23 at 0330, Routine [facility] clindamycin (CLEOCIN HCL) capsule 450 mg 03-22 08:30: 00 03-22 07:34 :00 No 450mg 450 mg, Oral, ONCE, 1 dose, On Erika 03/22/23 at 0330, JUNE
Re ason for Anti-Infec tive: Documented Infection< br>Documen nakita Infection Site: HEENT
D uration of Therapy: Other (see Comments)< br>Restric nakita use approved by: ED PROVIDER [facility] ibuprofen (IBU) tablet 600 mg 03-22 07:30: 00 03-22 07:34 :00 No 600mg 600 mg, Oral, ONCE, 1 dose, On Erika 03/22/23 at 0230, JUNE [facility] traMADoL 50 mg tablet 03-22 00:00: 00 Yes [id number] 50mg Take 1 tablet by mouth every 6 (six) hours as needed for Pain (scale 7-10). Indication s: acute pain [facility] ibuprofen 600 mg tablet 03-22 00:00: 00 Yes [id number] 600mg Take 1 tablet by mouth every 6 (six) hours as needed for Pain (scale 4-6). [facility] traMADoL 50 mg tablet 03-22 00:00: 00 Yes [id number] 50mg Take 1 tablet by mouth every 6 (six) hours as needed for Pain (scale 7-10). Indication s: acute pain [facility] ibuprofen 600 mg tablet 03-22 00:00: 00 Yes [id number] 600mg Take 1 tablet by mouth every 6 (six) hours as needed for Pain (scale 4-6). [facility] traMADoL 50 mg tablet 03-22 00:00: 00 Yes [id number] 50mg Take 1 tablet by mouth every 6 (six) hours as needed for Pain (scale 7-10). Indication s: acute pain [facility] ibuprofen 600 mg tablet 03-22 00:00: 00 Yes [id number] 600mg Take 1 tablet by mouth every 6 (six) hours as needed for Pain (scale 4-6). [facility] clindamycin 150 mg capsule 03-22 00:00: 00 04-02 04:59 :00 No [id number] 450mg Take 3 capsules by mouth in the morning and 3 capsules at noon and 3 capsules in the evening. Do all this for 10 days. [facility] maalox:diph enhydrAMINE :lidocaine 2 % viscous 1:1:1 ([facility]) oral suspension 15 mL 2023-0 5-06 03:15: 00 02-10 03:17 :00 No 15mL 15 mL, Oral, ONCE, 1 dose, On Sun02/09/23 at 2215, Routine [facility] cloNIDine (CATAPRES) tablet 0.1 mg 02-10 02:15: 00 02-10 02:15 :00 No .1mg 0.1 mg, Oral, ONCE, 1 dose, On Sun02/09/23 at 2115, STAT [facility] dicyclomine (BENTYL) injection 20 mg 02-10 02:00: 00 02-10 00:59 :00 No 20mg 20 mg, Intramuscu lar, ONCE, 1 dose, On Sun02/09/23 at 2100, Routine [facility] NaCl 0.9% (NS) IV infusion 1,000 mL 02-10 01:00: 00 Yes 1000mL at 999 mL/hr, Intravenou s, CONTINUOUS , Starting on Sun02/09/23 at 2000, Until Discontinu ed, JUNE [facility] haloperidol lactate (HALDOL) injection 2.5 mg 02-10 00:00: 00 02-10 00:59 :00 No 2.5mg 2.5 mg, Slow IV Push, ONCE, 1 dose, On Sun02/09/23 at 1900, STAT [facility] proMETHazin e 25 mg tablet 02-09 00:00: 00 Yes [id number] 25mg Take 1 tablet by mouth every 6 (six) hours as needed for Nausea and Vomiting (N/V) or N/V unresponsi ve to Ondansetro n. [facility] proMETHazin e 25 mg tablet 02-09 00:00: 00 Yes [id number] 25mg Take 1 tablet by mouth every 6 (six) hours as needed for Nausea and Vomiting (N/V) or N/V unresponsi ve to Ondansetro n. [facility] proMETHazin e 25 mg tablet 02-09 00:00: 00 Yes [id number] 25mg Take 1 tablet by mouth every 6 (six) hours as needed for Nausea and Vomiting (N/V) or N/V unresponsi ve to Ondansetro n. [facility] proMETHazin e 25 mg tablet 02-09 00:00: 00 Yes [id number] 25mg Take 1 tablet by mouth every 6 (six) hours as needed for Nausea and Vomiting (N/V) or N/V unresponsi ve to Ondansetro n. [facility] losartan 50 mg tablet 02-09 00:00: 00 03-12 04:59 :00 No [id number] 50mg Take 1 tablet by mouth in the morning for 30 days. [facility] pantoprazol e (PROTONIX) 80 mg in NaCl 0.9% (NS) 20 mL syringe 02-08 13:00: 00 02-08 12:04 :00 No 80mg 80 mg, IV Push, ONCE, 1 dose, On Erika 02/08/23 at 0800, Administer over 2 Minutes, 20 mL [facility] dicyclomine (BENTYL) tablet 20 mg 02-08 12:00: 00 02-08 12:01 :00 No 20mg 20 mg, Oral, ONCE, 1 dose, On Erika 02/08/23 at 0700, [facility] NaCl 0.9% (NS) bolus infusion 1,000 mL 02-08 12:00: 00 02-08 12:10 :00 No 1000mL at 999 mL/hr, 1,000 mL, IV Infusion, ONCE, 1 dose, On Erika 02/08/23 at 0700, [facility] ondansetron (ZOFRAN (PF)) injection 4 mg 02-08 08:45: 00 02-08 08:41 :00 No 4mg 4 mg, Slow IV Push, ONCE, 1 dose, On Erika 02/08/23 at 0345, [facility] pantoprazol e (PROTONIX) EC tablet 40 mg 01-13 04:45: 00 01-13 04:49 :00 No 40mg 40 mg, Oral, ONCE, 1 dose, On Sun01/12/23 at 2345, JUNE [facility] iopamidol (ISOVUE 370-500 mL) injection 100 mL 01-13 04:15: 00 01-13 04:15 :00 No [id number] 100mL 100 mL, Intravenou s, ONCE, 1 dose, On Sun01/12/23 at 2315, Routine [facility] NaCl 0.9% (NS) bolus infusion 1,000 mL 01-13 03:15: 00 01-13 04:42 :00 No 1000mL at 999 mL/hr, 1,000 mL, IV Infusion, ONCE, 1 dose, On Sun01/12/23 at 2215, JUNE [facility] ondansetron 4 mg disintegrat ing tablet 01-13 00:00: 00 Yes [id number] 4mg Take 1 tablet by mouth every 8 (eight) hours as needed for Nausea and Vomiting (N/V). [facility] pantoprazol e (PROTONIX) 40 mg EC tablet 01-13 00:00: 00 Yes [id number] 40mg Take 1 tablet by mouth in the morning. [facility] ondansetron 4 mg disintegrat ing tablet 01-13 00:00: 00 Yes [id number] 4mg Take 1 tablet by mouth every 8 (eight) hours as needed for Nausea and Vomiting (N/V). [facility] pantoprazol e (PROTONIX) 40 mg EC tablet 01-13 00:00: 00 Yes [id number] 40mg Take 1 tablet by mouth in the morning. [facility] ondansetron 4 mg disintegrat ing tablet 0 01-13 00:00: 00 Yes [id number] 4mg Take 1 tablet by mouth every 8 (eight) hours as needed for Nausea and Vomiting (N/V). [facility] pantoprazol e (PROTONIX) 40 mg EC tablet 01-13 00:00: 00 Yes [id number] 40mg Take 1 tablet by mouth in the morning. [facility] ondansetron 4 mg disintegrat ing tablet 2023-0 4-08 00:00: 00 Yes [id number] 4mg Take 1 tablet by mouth every 8 (eight) hours as needed for Nausea and Vomiting (N/V). [facility] pantoprazol e (PROTONIX) 40 mg EC tablet 4-08 00:00: 00 Yes [id number] 40mg Take 1 tablet by mouth in the morning. [facility] ondansetron 4 mg disintegrat ing tablet 4-08 00:00: 00 Yes [id number] 4mg Take 1 tablet by mouth every 8 (eight) hours as needed for Nausea and Vomiting (N/V). [facility] pantoprazol e (PROTONIX) 40 mg EC tablet - 00:00: 00 Yes [id number] 40mg Take 1 tablet by mouth in the morning. [facility] ondansetron 4 mg disintegrat ing tablet 01-13 00:00: 00 Yes [id number] 4mg Take 1 tablet by mouth every 8 (eight) hours as needed for Nausea and Vomiting (N/V). [facility] pantoprazol e (PROTONIX) 40 mg EC tablet 01-13 00:00: 00 Yes [id number] 40mg Take 1 tablet by mouth in the morning. [facility] dexamethaso ne (DECADRON PHOSPHATE) injection 10 mg 11-24 15:15: 00 11-24 14:09 :00 No 10mg 10 mg, Oral, ONCE, 1 dose, On Erika 11/24/21 at 0915, STAT [facility] HYDROcodone -acetaminop hen (NORCO 5) 5-325 mg tablet 1 tablet 11-24 15:15: 00 11-24 14:08 :00 No 1{tbl} 1 tablet, Oral, ONCE, 1 dose, On Erika 11/24/21 at 0915, JUNE [facility] diazePAM (VALIUM) tablet 5 mg 11-24 15:15: 00 11-24 14:09 :00 No 5mg 5 mg, Oral, ONCE, 1 dose, On Erika 11/24/21 at 0915, JUNE [facility] cyclobenzap rine 10 mg tablet 0 -17 00:00: 00 Yes [id number] 10mg Take 1 tablet by mouth 3 (three) times daily as needed for Muscle Spasms. [facility] cyclobenzap rine 10 mg tablet 0 -17 00:00: 00 Yes [id number] 10mg Take 1 tablet by mouth 3 (three) times daily as needed for Muscle Spasms. [facility] cyclobenzap rine 10 mg tablet 0 17 00:00: 00 Yes [id number] 10mg Take 1 tablet by mouth 3 (three) times daily as needed for Muscle Spasms. [facility] cyclobenzap rine 10 mg tablet 0 17 00:00: 00 Yes [id number] 10mg Take 1 tablet by mouth 3 (three) times daily as needed for Muscle Spasms. [facility] cyclobenzap rine 10 mg tablet 0 17 00:00: 00 03-22 00:00 :00 No [id number] 10mg Take 1 tablet by mouth 3 (three) times daily as needed for Muscle Spasms. [facility] ondansetron 4 mg disintegrat ing tablet 0 -16 00:00: 00 Yes [id number] 4mg Take 1 tablet by mouth every 4 (four) hours as needed for Nausea and Vomiting (N/V). [facility] dicyclomine 20 mg tablet 2021-0 -16 00:00: 00 Yes [id number] 20mg Take 1 tablet by mouth 4 (four) times daily. [facility] loratadine 10 mg tablet 2021-0 -16 00:00: 00 Yes [id number] 10mg Take 1 tablet by mouth daily. [facility] ondansetron 4 mg disintegrat ing tablet 2021-0 -16 00:00: 00 Yes [id number] 4mg Take 1 tablet by mouth every 4 (four) hours as needed for Nausea and Vomiting (N/V). [facility] dicyclomine 20 mg tablet 2021-0 -16 00:00: 00 Yes [id number] 20mg Take 1 tablet by mouth 4 (four) times daily. [facility] loratadine 10 mg tablet 2021-0 -16 00:00: 00 Yes [id number] 10mg Take 1 tablet by mouth daily. [facility] ondansetron 4 mg disintegrat ing tablet 2021-0 -16 00:00: 00 Yes [id number] 4mg Take 1 tablet by mouth every 4 (four) hours as needed for Nausea and Vomiting (N/V). [facility] dicyclomine 20 mg tablet 2021-0 -16 00:00: 00 Yes [id number] 20mg Take 1 tablet by mouth 4 (four) times daily. [facility] loratadine 10 mg tablet 2021-0 16 00:00: 00 Yes [id number] 10mg Take 1 tablet by mouth daily. [facility] ondansetron 4 mg disintegrat ing tablet 2021-0 -16 00:00: 00 Yes [id number] 4mg Take 1 tablet by mouth every 4 (four) hours as needed for Nausea and Vomiting (N/V). [facility] dicyclomine 20 mg tablet 2021-0 16 00:00: 00 Yes [id number] 20mg Take 1 tablet by mouth 4 (four) times daily. [facility] loratadine 10 mg tablet 2021-0 16 00:00: 00 Yes [id number] 10mg Take 1 tablet by mouth daily. [facility] ondansetron 4 mg disintegrat ing tablet 2021-0 -16 00:00: 00 Yes [id number] 4mg Take 1 tablet by mouth every 4 (four) hours as needed for Nausea and Vomiting (N/V). [facility] dicyclomine 20 mg tablet 2021-0 -16 00:00: 00 Yes [id number] 20mg Take 1 tablet by mouth 4 (four) times daily. [facility] loratadine 10 mg tablet 2021-0 -16 00:00: 00 Yes [id number] 10mg Take 1 tablet by mouth daily. [facility] ondansetron 4 mg disintegrat ing tablet 2021-0 -16 00:00: 00 Yes [id number] 4mg Take 1 tablet by mouth every 4 (four) hours as needed for Nausea and Vomiting (N/V). [facility] dicyclomine 20 mg tablet 2021-0 -16 00:00: 00 Yes [id number] 20mg Take 1 tablet by mouth 4 (four) times daily. [facility] loratadine 10 mg tablet 2021-0 -16 00:00: 00 Yes [id number] 10mg Take 1 tablet by mouth daily. [facility] ondansetron 4 mg disintegrat ing tablet 0 -16 00:00: 00 Yes [id number] 4mg Take 1 tablet by mouth every 4 (four) hours as needed for Nausea and Vomiting (N/V). [facility] dicyclomine 20 mg tablet 2021-0 -16 00:00: 00 Yes [id number] 20mg Take 1 tablet by mouth 4 (four) times daily. [facility] loratadine 10 mg tablet 0 -16 00:00: 00 Yes [id number] 10mg Take 1 tablet by mouth daily. [facility] ondansetron 4 mg disintegrat ing tablet 2021-0 16 00:00: 00 Yes [id number] 4mg Take 1 tablet by mouth every 4 (four) hours as needed for Nausea and Vomiting (N/V). [facility] dicyclomine 20 mg tablet 2021-0 16 00:00: 00 Yes [id number] 20mg Take 1 tablet by mouth 4 (four) times daily. [facility] loratadine 10 mg tablet 2021-0 16 00:00: 00 Yes [id number] 10mg Take 1 tablet by mouth daily. [facility] aspirin 81 mg chewable tablet 04-19 00:00: 00 05-20 04:59 :00 No [id number] 81mg Take 1 tablet by mouth daily for 30 days. [facility] aspirin chewable tablet 81 mg 2019-04-18 14:00: 00 Yes 81mg 81 mg, Oral, DAILY, First dose on 04/18/20 at 0900, Until Discontinu ed, Routine [facility] carvediloL 3.125 mg tablet 04-18 00:00: 00 05-19 04:59 :00 No [id number] 3.125mg Take 1 tablet by mouth 2 (two) times daily with meals for 30 days. [facility] pantoprazol e 40 mg EC tablet 04-18 00:00: 00 05-19 04:59 :00 No [id number] 40mg Take 1 tablet by mouth daily for 30 days. [facility] carvediloL (COREG) tablet 3.125 mg 04-17 22:00: 00 Yes 3.125mg 3.125 mg, Oral, BID MEALS, First dose on 04/17/20 at 1700, Until Discontinu ed, Routine
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[facility] at[facility] (LIPITOR) tablet 40 mg 04-17 22:00: 00 Yes 40mg 40 mg, Oral, QPM, First dose on 04/17/20 at 1700, Until Discontinu ed, Routine [facility] heparin (porcine) injection 5,000 Units 04-17 19:00: 00 Yes 5000U 5,000 Units, Subcutaneo us, Q8H, First dose on 04/17/20 at 1400, Until Discontinu ed, Routine [facility] nicotine (NICODERM) 7 mg/24 hr patch 1 Patch 04-17 18:00: 00 Yes 1{patch } 1 Patch, Topical, Administer over 24 Hours, Q24H, First dose on 04/17/20 at 1300, Until Discontinu ed, Routine [facility] D5W 0.9% NaCl (NS) IV infusion 1,000 mL 04-17 17:00: 00 04-18 13:34 :21 No 1000mL at 100 mL/hr, 1,000 mL, IV Infusion, CONTINUOUS , Starting 04/17/20 at 1200, Until 04/18/20 at 0834, Routine [facility] LORazepam (ATIVAN) injection 0.5 mg 04-17 15:55: 35 Yes .5mg 0.5 mg, Slow IV Push, Q8HPRN, Starting 04/17/20 at 1055, Until Discontinu ed, Routine, Anxiety, Agitation [facility] nitroglycer in (NITROSTAT) sublingual tablet 0.4 mg 04-17 15:43: 20 Yes .4mg 0.4 mg, Sublingual , Q5MIN PRN, Starting 04/17/20 at 1043, Until Discontinu ed, Routine, Chest pain [facility] ondansetron (ZOFRAN (PF)) injection 4 mg 04-17 15:24: 53 Yes 4mg 4 mg, Slow IV Push, Q6HPRN, Starting 04/17/20 at 1024, Until Discontinu ed, Routine, Nausea and Vomiting (N/V) [facility] morpHINE injection 2 mg 04-17 15:24: 16 04-18 15:23 :16 No 2mg 2 mg, Slow IV Push, Q4HPRN, Starting 04/17/20 at 1024, Until 04/18/20 at 1023, Routine, Pain (scale 7-10) [facility] aspirin chewable tablet 324 mg 04-17 14:59: 00 04-17 15:04 :00 No 324mg 324 mg, Oral, ONCE, 1 dose, 04/17/20 at 1000, Routine [facility] proMETHazin e (PHENERGAN) 25 mg in NaCl 0.9% (NS) 50 mL piggyback 04-17 14:45: 00 04-17 14:45 :00 No 25mg 25 mg, IV Piggyback, ONCE, 1 dose, 04/17/20 at 0945, 50 mL [facility] NaCl 0.9% (NS) bolus infusion 500 mL 04-17 14:00: 00 04-18 01:12 :00 No 500mL at 999 mL/hr, 500 mL, IV Infusion, ONCE, 1 dose, 04/17/20 at 0900, STAT [facility] ondansetron (ZOFRAN (PF)) injection 4 mg 04-17 14:00: 00 04-17 13:10 :00 No 4mg 4 mg, Slow IV Push, ONCE, [facility] 04-17 14:00: 00 04-17 13:10 :00 No 4mg 4 mg, Slow IV Push, ONCE, 1 dose, 04/17/20 at 0900, STAT [facility] pantoprazol e (PROTONIX) 40 mg in NaCl 0.9% (NS) 100 mL MINI-BAG 04-17 14:00: 00 04-17 13:26 :00 No 40mg 40 mg, IV Piggyback, ONCE, 1 dose, 04/17/20 at 0900, 100 mL [facility] NaCl 0.9% (NS) bolus infusion 1,000 mL 04-17 13:00: 00 04-17 15:04 :00 No 1000mL at 999 mL/hr, 1,000 mL, IV Infusion, ONCE, 1 dose, 04/17/20 at 0800, STAT [facility] ondansetron (ZOFRAN (PF)) injection 4 mg 04-17 13:00: 00 04-17 11:54 :00 No 4mg 4 mg, Slow IV Push, ONCE, 1 dose, 04/17/20 at 0800, [facility] LORazepam (ATIVAN) injection 2 mg 04-08 09:00: 00 04-08 07:56 :00 No 2mg 2 mg, Slow IV Push, ONCE, 1 dose, Erika 04/08/20 at 0400, Routine [facility] NaCl 0.9% (NS) IV infusion 1,000 mL 04-08 06:00: 00 Yes 1000mL at 150 mL/hr, Intravenou s, CONTINUOUS , Starting Erika 04/08/20 at 0100, Until Discontinu ed, Routine [facility] ondansetron (ZOFRAN (PF)) injection 8 mg 04-08 06:00: 00 04-08 04:53 :00 No 8mg 8 mg, Slow IV Push, ONCE, 1 dose, Erika 04/08/20 at 0100, JUNE [facility] NaCl 0.9% (NS) IV infusion 1,000 mL 04-08 05:45: 00 04-08 06:21 :00 No 1000mL at 999 mL/hr, Intravenou s, ONCE, 1 dose, Erika 04/08/20 at 0045, Routine [facility] NaCl 0.9% (NS) bolus infusion 1,000 mL 04-08 01:00: 00 04-08 02:20 :00 No 1000mL at 999 mL/hr, 1,000 mL, IV Infusion, ONCE, 1 dose, 04/07/20 at 2000, JUNE [facility] No known medications No Un nora [facility] No known medications No Un nora [facility] Vital Signs Vital Name Observation Time Observation Value Comments S ource Body temperature 2023-06-16 19:36:[address] [facility] Respiratory rate 2023-06-16 19:36:00 18 /min [facility] Systolic blood pressure 2023-06-16 19:00:00 104 mm[Hg] [facility] Diastolic blood pressure 2023-06-16 19:00:00 62 mm[Hg] [facility] Heart rate 2023-06-16 19:00:00 81 /min [facility] Oxygen saturation in Arterial blood by Pulse oximetry 2023-06-16 19:00:00 97 /min [facility] Body height 2023-06-16 12:42:00 175.3 cm [facility] Body weight 2023-06-16 12:42:00 68.04 kg [facility] BMI 2023-06-16 12:42:00 22.15 kg/m2 [facility] Systolic blood pressure 2023-05-01 08:48:00 136 mm[Hg] [facility] Diastolic blood pressure 2023-05-01 08:48:00 93 mm[Hg] [facility] Heart rate 2023-05-01 08:48:00 70 /min [facility] Body temperature 2023-05-01 08:48:[address] [facility] Respiratory rate 2023-05-01 08:48:00 18 /min [facility] Body height 2023-05-01 08:48:00 175.3 cm [facility] Body weight 2023-05-01 08:48:00 73.483 kg [facility] BMI 2023-05-01 08:48:00 23.92 kg/m2 [facility] Oxygen saturation in Arterial blood by Pulse oximetry 2023-05-01 08:48:00 98 /min [facility] Systolic blood pressure 2023-03-22 07:34:00 154 mm[Hg] [facility] Diastolic blood pressure 2023-03-22 07:34:00 107 mm[Hg] [facility] Heart rate 2023-03-22 07:34:00 71 /min Unive [facility] Body temperature 2023-03-22 07:34:[address] [facility] Respiratory rate 2023-03-22 07:34:00 16 /min [facility] Oxygen saturation in Arterial blood by Pulse oximetry 2023-03-22 07:34:00 100 /min [facility] Body height 2023-03-22 06:17:00 175.3 cm [facility] Body weight 2023-03-22 06:17:00 72.485 kg [facility] BMI 2023-03-22 06:17:00 23.60 kg/m2 [facility] Systolic blood pressure 2023-02-10 03:00:00 195 mm[Hg] [facility] Diastolic blood pressure 2023-02-10 03:00:00 98 mm[Hg] [facility] Heart rate 2023-02-10 03:00:00 137 /min [facility] Respiratory rate 2023-02-10 03:00:00 18 /min [facility] Oxygen saturation in Arterial blood by Pulse oximetry 2023-02-10 03:00:00 90 /min [facility] Body temperature 2023-02-10 02:30:[address] [facility] Body weight 2023-02-09 23:09:00 79.379 kg [facility] BMI 2023-02-09 23:09:00 25.84 kg/m2 [facility] Systolic blood pressure 2023-02-08 12:10:00 163 mm[Hg] [facility] Diastolic blood pressure 2023-02-08 12:10:00 102 mm[Hg] [facility] Respiratory rate 2023-02-08 12:10:00 16 /min [facility] Heart rate 2023-02-08 09:00:00 80 /min [facility] Oxygen saturation in Arterial blood by Pulse oximetry 2023-02-08 09:00:00 97 /min [facility] Body temperature 2023-02-08 08:26:[address] [facility] Body height 2023-02-08 08:26:00 175.3 cm [facility] Body weight 2023-02-08 08:26:00 79.379 kg [facility] BMI 2023-02-08 08:26:00 25.84 kg/m2 [facility] Systolic blood pressure 2023-01-13 05:00:00 150 mm[Hg] [facility] Diastolic blood pressure 2023-01-13 05:00:00 99 mm[Hg] [facility] Heart rate 2023-01-13 05:00:00 74 /min [facility] Respiratory rate 2023-01-13 03:30:00 9 /min [facility] Oxygen saturation in Arterial blood by Pulse oximetry 2023-01-13 03:30:00 100 /min [facility] Body temperature 2023-01-13 02:06:[address] [facility] Body height 2023-01-13 02:06:00 175.3 cm [facility] Body weight 2023-01-13 02:06:00 68.04 kg [facility] BMI 2023-01-13 02:06:00 22.15 kg/m2 Univ [facility] Systolic blood pressure 2021-11-24 13:48:00 141 mm[Hg] [facility] Diastolic blood pressure 2021-11-24 13:48:00 90 mm[Hg] [facility] Heart rate 2021-11-24 13:48:00 80 /min Unive [facility] Body temperature 2021-11-24 13:48:[address] [facility] Respiratory rate 2021-11-24 13:48:00 22 /min [facility] Body weight 2021-11-24 13:48:00 79.379 kg Univ [facility] BMI 2021-11-24 13:48:00 27.41 kg/m2 [facility] Oxygen saturation in Arterial blood by Pulse oximetry 2021-11-24 13:48:00 99 /min [facility] Systolic blood pressure 2021-10-23 18:43:00 136 mm[Hg] [facility] Diastolic blood pressure 2021-10-23 18:43:00 89 mm[Hg] [facility] Heart rate 2021-10-23 18:43:00 73 /min Unive [facility] Body temperature 2021-10-23 18:43:[address] [facility] Respiratory rate 2021-10-23 18:43:00 18 /min [facility] Body weight 2021-10-23 18:43:00 70.308 kg Univ [facility] BMI 2021-10-23 18:43:00 24.28 kg/m2 [facility] Oxygen saturation in Arterial blood by Pulse oximetry 2021-10-23 18:43:00 100 /min [facility] Systolic blood pressure 2020-04-18 16:00:00 132 mm[Hg] [facility] Diastolic blood pressure 2020-04-18 16:00:00 95 mm[Hg] [facility] Heart rate 2020-04-18 16:00:00 82 /min Unive [facility] Body temperature 2020-04-18 16:00:[address] [facility] Respiratory rate 2020-04-18 16:00:00 18 /min [facility] Oxygen saturation in Arterial blood by Pulse oximetry 2020-04-18 16:00:00 98 /min [facility] Body weight 2020-04-18 08:08:00 70.988 kg [facility] BMI 2020-04-18 08:08:00 24.51 kg/m2 Univ [facility] Body height 2020-04-17 22:34:00 170.2 cm Univ [facility] Systolic blood pressure 2020-04-18 16:00:00 132 mm[Hg] [facility] Diastolic blood pressure 2020-04-18 16:00:00 95 mm[Hg] [facility] Heart rate 2020-04-18 16:00:00 82 /min Unive [facility] Body temperature 2020-04-18 16:00:[address] [facility] Respiratory rate 2020-04-18 16:00:00 18 /min [facility] Oxygen saturation in Arterial blood by Pulse oximetry 2020-04-18 16:00:00 98 /min [facility] Body weight 2020-04-18 08:08:00 70.988 kg [facility] BMI 2020-04-18 08:08:00 24.51 kg/m2 [facility] Body height 2020-04-17 22:34:00 170.2 cm [facility] Systolic blood pressure 2020-04-09 12:12:00 134 mm[Hg] [facility] Diastolic blood pressure 2020-04-09 12:12:00 74 mm[Hg] [facility] Heart rate 2020-04-09 12:12:00 80 /min [facility] 2020-04-09 12:12:[address] [facility] Respiratory rate 2020-04-09 12:12:00 18 /min [facility] Oxygen saturation in Arterial blood by Pulse oximetry 2020-04-09 12:12:00 99 /min [facility] Body weight 2020-04-09 08:55:00 70.489 kg Univ [facility] BMI 2020-04-09 08:55:00 22.95 kg/m2 [facility] Body height 2020-04-08 06:35:00 175.3 cm [facility] Systolic blood pressure 2020-04-09 12:12:00 134 mm[Hg] [facility] Diastolic blood pressure 2020-04-09 12:12:00 74 mm[Hg] [facility] Heart rate 2020-04-09 12:12:00 80 /min [facility] Body temperature 2020-04-09 12:12:[address] [facility] Respiratory rate 2020-04-09 12:12:00 18 /min [facility] Oxygen saturation in Arterial blood by Pulse oximetry 2020-04-09 12:12:00 99 /min [facility] Body weight 2020-04-09 08:55:00 70.489 kg [facility] BMI 2020-04-09 08:55:00 22.95 kg/m2 [facility] Body height 2020-04-08 06:35:00 175.3 cm [facility] Procedures Procedure Date / Time Performed Performing Clinician Source COVID-19 (ID NOW RAPID TESTING) 2023-06-16 18:39:[address] [facility] CT ABDOMEN PELVIS W CONTRAST 2023-06-16 14:31:[address] [facility] URINE DRUG (IMMUNOASSAY) - COMPREHENSIVE DRUG SCREEN 2023-06-16 14:13:[address] [facility] ASSIGNMENT OF BENEFITS 2023-06-16 13:43:45 Docto r Unassigned, [place] [facility] CONSENT/REFUSAL FOR DIAGNOSIS AND TREATMENT 2023-06-16 13:42:28 Doctor Unassigned, [place] [facility] CREATINE KINASE 2023-06-16 13:02:00 [facility] 2023-06-16 13:02:00 Osito Hillman [facility] COMP. METABOLIC PANEL ([id number]) 2023-06-16 13:02:[address] [facility] CBC WITH DIFF 2023-06-16 13:02:00 Osito Hillman [facility] NOTICE OF PRIVACY PRACTICES 2023-05-01 08:43:44 Doctor Unassigned, [place] [facility] CONSENT/REFUSAL FOR DIAGNOSIS AND TREATMENT 2023-05-01 08:43:11 Doctor Unassigned, [place] [facility] CONSENT/REFUSAL FOR DIAGNOSIS AND TREATMENT 2023-03-22 05:59:51 Doctor Unassigned, [place] [facility] URINALYSIS 2023-02-10 01:53:00 Yancy Crump [facility] CREATINE KINASE 2023-02-10 00:43:00 Yancy Crump [facility] LIPASE 2023-02-10 00:43:00 Yancy Crump [facility] COMP. METABOLIC PANEL ([id number]) 2023-02-10 00:43:[address] [facility] CBC WITH DIFF 2023-02-10 00:43:00 Yancy Crump [facility] XR CHEST 1 VW 2023-02-08 12:06:00 Emily Watt [facility] URINALYSIS 2023-02-08 11:25:00 Emily Watt [facility] URINE DRUG (IMMUNOASSAY) - COMPREHENSIVE DRUG SCREEN W/O REFLEX 2023-02-08 11:25:[address] [facility] LIPASE 2023-02-08 08:40:00 Emily Watt [facility] COMP. METABOLIC PANEL ([id number]) 2023-02-08 08:40:[address] [facility] CBC WITH DIFF 2023-02-08 08:40:00 Emily Watt [facility] URINALYSIS 2023-01-13 04:28:00 Harshad Lowe [facility] CT ABDOMEN PELVIS W CONTRAST 2023-01-13 03:23:[address] [facility] LIPASE 2023-01-13 02:22:00 Harshad Lowe [facility] COMP. METABOLIC PANEL ([id number]) 2023-01-13 02:22:[address] [facility] CBC WITH DIFF 2023-01-13 02:22:00 Harshad Lowe [facility] CONSENT/REFUSAL FOR DIAGNOSIS AND TREATMENT 2021-11-24 13:39:07 Doctor Unassigned, [place] [facility] ASSIGNMENT OF BENEFITS 2021-10-23 19:03:33 Docto r Unassigned, [place] [facility] NOTICE OF PRIVACY PRACTICES 2021-10-23 18:37:52 Doctor Unassigned, [place] [facility] CONSENT/REFUSAL FOR DIAGNOSIS AND TREATMENT 2021-10-23 18:36:42 Doctor Unassigned, [place] [facility] MAGNESIUM 2020-04-18 10:16:00 Estrella Joseph [facility] TROPONIN I 2020-04-18 10:16:00 Ramses Wiseman [facility] BASIC METABOLIC PANEL (NA, K, CL, CO2, GLUCOSE, BUN, CREATININE, CA) 2020-04-18 10:16:[address] [facility] LIPID PANEL ([id number])(TOTAL CHOLESTEROL, TRIGLYCERIDES, HDL) 2020-04-17 17:32:00 [facility] 2020-04-17 16:25:28 Milagros Courtney [facility] SERUM DRUG (IMMUNOASSAY) - COMPREHENSIVE DRUG SCREEN 2020-04-17 16:17:[address] [facility] PROTHROMBIN TIME / INR 2020-04-17 16:17:[address] [facility] D-DIMER 2020-04-17 16:17:[address] [facility] N-TERMINAL PRO-BNP 2020-04-17 16:17:00 [facility] VW 2020-04-17 15:08:28 Milagros Courtney [facility] PHOSPHORUS 2020-04-17 15:07:[address] TROPONIN I 2020-04-17 15:07:[address] [facility] THYROID STIMULATING HORMONE 2020-04-17 15:07:00 Opal [facility] COVID-19 (ID NOW RAPID TESTING) 2020-04-17 13:14:[address] [facility] ACUTE CARE VENOUS BLOOD GAS 2020-04-17 13:10:[address] [facility] EKG-12 LEAD 2020-04-17 13:04:30 Milagros Courtney [facility] 2020-04-17 12:46:15 Milagros Courtney [facility] CREATINE KINASE 2020-04-17 11:54:00 [facility]ros [facility] 2020-04-17 11:54:00 Murtaza Ramirez [facility] TROPONIN I 2020-04-17 11:54:[address] [facility] COMP. METABOLIC PANEL ([id number]) 2020-04-17 11:54:00 Singer [facility] CBC WITH DIFFERENTIAL 2020-04-17 11:54:00 Singer [facility] GLYCOSYLATED HEMOGLOBIN (A1C) 2020-04-17 11:54:00 Opal [facility] EKG-12 LEAD 2020-04-17 11:49:[address] EKG-12 LEAD 2020-04-17 11:38:[address] [facility] CREATINE KINASE 2020-04-09 08:58:[address] BASIC METABOLIC PANEL (NA, K, CL, CO2, GLUCOSE, BUN, CREATININE, CA) 2020-04-09 08:58:00 Brett [facility] CBC WITH DIFFERENTIAL 2020-04-09 08:58:00 Brett [facility] BASIC METABOLIC PANEL (NA, K, CL, CO2, GLUCOSE, BUN, CREATININE, CA) 2020-04-08 10:48:[address] [facility] COVID-19 (ID NOW RAPID TESTING) 2020-04-08 05:10:[address] [facility] TROPONIN I 2020-04-08 04:22:00 Yancy Crump [facility] EKG-12 LEAD 2020-04-08 04:13:08 Osito Hillman [facility] EKG-12 LEAD 2020-04-08 04:08:34 Yancy Crump [facility] URINALYSIS 2020-04-08 01:57:00 Yancy Crump [facility] ADC / LCC - DRUG SCREEN TRIAGE 2020-04-08 01:57:[address] [facility] CREATINE KINASE 2020-04-08 01:18:00 [facility] 2020-04-08 01:18:00 Janeth Crumpala Shantal [facility] TROPONIN I 2020-04-08 01:18:00 Yancy Crump [facility] HEPATIC FUNCTION PANEL ([id number]) (ALB,T.PRO,BILI T,BU/BC,ALT,AST,ALK PHOS) 2020-04-08 01:18:[address] [facility] BASIC METABOLIC PANEL (NA, K, CL, CO2, GLUCOSE, BUN, CREATININE, CA) 2020-04-08 01:18:[address] [facility] CBC WITH DIFFERENTIAL 2020-04-08 01:18:[address] [facility] EKG-12 LEAD 2020-04-08 00:55:43 Yancy Crump [facility] NOTICE OF PRIVACY PRACTICES 2020-04-08 00:32:15 Doctor Unassigned, [place] [facility] CONSENT/REFUSAL FOR DIAGNOSIS AND TREATMENT 2020-04-08 00:32:00 Doctor Unassigned, [place] [facility] Encounters Start Date/Time End Date/Time Encounter Type Admission Type Attending Critical Access Hospital Care Facility Care Department Encounter ID Source 2023-06-16 07:46:00 2023-06-16 14:40:00 Emergency X OSITO HILLMAN [facility] ERT [id number] [facility] 2023-06-16 07:46:00 2023-06-16 14:40:00 Emergency MarkpriyankOsito powell [facility] 1.2.840.114 350.1.13.10 4.2.7.2.686 [id number] [facility] 2023-06-14 21:15:00 2023-06-15 01:17:00 Emergency EM Jcarlos Mora [facility] [id number] [facility] 2023-05-01 03:52:00 2023-05-01 06:14:00 Emergency X VERONICAANASAMANTHA ANNAKEMAL [facility] ERT [id number] [facility] 2023-05-01 03:52:00 2023-05-01 06:14:00 Emergency Kenneth Courtneylovely S [facility] 1.2.840.114 350.1.13.10 4.2.7.2.686 [id number] [facility] 2023-03-22 01:19:00 2023-03-22 02:41:00 Emergency X SAEED RAMIRO [facility] ERT [id number] [facility] 2023-03-22 01:19:00 2023-03-22 02:41:00 Emergency TiptonRamiro chong S [facility] 1.2.840.114 350.1.13.10 4.2.7.2.686 [id number] [facility] 2023-02-09 18:10:00 2023-02-09 23:44:00 Emergency X YANCY CRUMP [facility] ERT [id number] [facility] 2023-02-09 18:10:00 2023-02-09 23:44:00 Emergency Yancy Crump G [facility] 1.2.840.114 350.1.13.10 4.2.7.2.686 [id number] [facility] 2023-02-08 03:22:00 2023-02-08 07:21:00 Emergency MURTAZA NATARAJAN [facility] ERT [id number] [facility] 2023-02-08 03:22:00 2023-02-08 07:21:00 Emergency Emily Watt Phillip [facility] 1.2.840.114 350.1.13.10 4.2.7.2.686 [id number] [facility] 2023-01-12 21:09:00 2023-01-13 00:30:00 Emergency HARSHAD ARENAS [facility] ERT [id number] [facility] 2023-01-12 21:09:00 2023-01-13 00:30:00 Emergency Harshad Lowe [facility] 1.2.840.114 350.1.13.10 4.2.7.2.686 [id number] [facility] 2021-11-24 07:50:00 2021-11-24 08:22:00 Emergency X CARIZEVRA [facility] ERT [id number] [facility] 2021-11-24 07:50:00 2021-11-24 08:22:00 Emergency Kenai Alcala Chanda [facility] 1.2.840.114 350.1.13.10 4.2.7.2.686 [id number] [facility] 2021-10-23 12:44:00 2021-10-23 13:18:00 Emergency X SMILEY WELCH [facility] ERT [id number] [facility] 2021-10-23 12:44:00 2021-10-23 13:18:00 Emergency Smiley Welch [facility] 1.2.840.114 350.1.13.10 4.2.7.2.686 [id number] [facility] 2020-04-17 06:30:30 2020-04-18 11:35:00 Emergency Milagros Courtney [facility] 1.2.840.114 350.1.13.10 4.2.7.2.686 [id number] 2020-04-17 06:30:30 2020-04-18 11:35:00 Emergency Milagros Courtney [facility] 1.2.840.114 350.1.13.10 4.2.7.2.686 [id number] [facility] 2020-04-17 06:30:30 2020-04-17 06:30:30 Emergency X MILAGROS COURTNEY [facility] ERT [id number] [facility] 2020-04-14 00:00:00 2020-04-14 00:00:00 Telephone [facility] 1.2.840.114 350.1.13.10 4.2.7.2.686 [id number] 2020-04-14 00:00:00 2020-04-14 00:00:00 Telephone [facility] 1.2.840.114 350.1.13.10 4.2.7.2.686 [id number] [facility] 2020-04-07 19:37:02 2020-04-09 10:30:00 Emergency Yancy Crump [facility] 1.2.840.114 350.1.13.10 4.2.7.2.686 [id number] 2020-04-07 19:37:02 2020-04-09 10:30:00 Emergency Yancy Crump [facility] 1.2.840.114 350.1.13.10 4.2.7.2.686 [id number] [facility] 2020-04-07 19:37:02 2020-04-07 19:37:02 Emergency X YANCY CRUMP [facility] ERT [id number] [facility] Results Test Description Test Time Test Comments Results Result Co mments Source CBC W/O [id number] 22:58:00* Test Item Value Reference Range Interpretation Comme nts WHITE BLOOD CELL (test code = WBC) 13.1 K/mm3 3.5-11.0 H RED BLOOD CELL (test code = RBC) 5.12 M/mm3 4.70-6.10 N HEMOGLOBIN (test code = HGB) 16.4 G/DL 12.3-15.9 H HEMATOCRIT (test code = HCT) 47.0 % 35.8-46.7 H MEAN CELL VOLUME (test code = MCV) 91.8 Fl 86.3-98.9 N MEAN CELL HGB (test code = MCH) 32.0 pg 28.9-34.4 N MEAN CELL HGB CONCETRATION ( test code = MCHC) 34.9 G/DL 32.1-34.5 H RED CELL DISTRIBUTION WIDTH (test code = RDW) 13.2 SD 11.5-14.5 N PLATELET COUNT (test code = PLT) 158 K/mm3 150-450 N MEAN PLATELET VOLUME (test c ode = MPV) 10.80 fL 7.0-9.6 H - CT ABD PELVIS W/O [id number] 22:46:00 [facility] : 1980 Sex: M Name: BRUCE OSWALD [facility] : 1980 Age/S: 43 / M [id number] Unit #: [id number] Loc: [place] [address] Phys: Jcarlos Mora MD Acct: [id number] Dis Date: Status: REG ER PHONE #:[phone] Exam Date: 06/14/20232214 FAX #: Reason: gen abdominal pain EXAMS: CPT: [id number] CT ABD PELVIS W/O CONT 51350 EXAM: - CT ABD PELVIS W/O CONT LOCATION: H47 HISTORY: gen abdominal pain COMPARISON: None available at the time of interpretation. TECHNIQUE: Contrast - No IV contrast was given. No oral contrast was given Noncontrast phase - abdomen and pelvis including all of kidneys Reconstructions - coronal and sagittal planes Unless otherwise specified, incidental findings do not req uire dedicated imaging follow-up. This exam was performed according to our departmental dose-optimization program, which includes automated exposure control, adjustment of the mA and/or kV according to patient size and/or use of iterative reconstruction technique FINDINGS: Statements: Lack of intravenous contrast compromises evaluation of abdominopelvic organs and vasculature. Lack of oral contrast compromises evaluation of bowel. Thoracic: Included images of the lower chest demonstrate no abnormalities. Hepatobiliary: The liver is normal without focal lesion. The gallbladder is normal. No biliary dilation. Pancreas: Normal. Spleen: Normal. Adrenals: Normal. Genitourinary: The kidneys are n ormal. There is no evidence of hydronephrosis of either kidney. There is no evidence of renal calculus. Evaluation of the bladder is limited, but no obvious bladder abnormality is present. Gastrointestinal: No bowel obstruction or perienteric inflammation. The appendix is not visualized. PAGE 1 Signed Report (CONTINUED) Name: BRUCE OSWALD [facility] [place] : 1980 Age/S: 43 / M [id number] Unit #: [id number] Loc: [place] [address] Phys: Jcarlos Mora MD Acct: [id number] Dis Date: Status: REG ER PHONE #: [phone] Exam Date: 06/14/20232214 FAX #: Reason: gen abdominal pain EXAMS: CPT: [id number] CT ABD PELVIS W/O CONT 80149 (Continued) Vascular: The aorta is grossly normal in appearance. Lymphatics: No enlarged lymph nodes by CT size criteria. Bones/Soft Tissues: No acute osseous findings. No ventral hernias. Peritoneum/Other: No extraluminal air. No extraluminal fluid. IMPRESSION: No acute findings. The appendix is not visualized and there is no pericecal inflammation. at 2246 Reported and signed by: HERMINIO FAUST M.D. CC: Jcarlos Mora MD Technologist:Alistair Alcala, RT(R)(CT) CTDI: DLP: Trnscb Date/Time: 06/14/2023 (2245) [email or web address] Orig Print D/T: S: 06/14/2023 (0) PAGE 2 Signed ReportBASIC METABOLIC [id number] 22:09:00* Test Item Value Reference Range Interpretation Comme nts SODIUM (test code = NA) 138 mmol/L 134-147 N POTASSIUM (test code = K) 4.4 mmol/L 3.4-5.0 N CHLORIDE (test code = CL) 113 mmol/L 100-108 H CARBON DIOXIDE (test code = CO2) 16 mmol/L 21-32 L ANION GAP (test code = GAP) 9.0 GAP calc 4.0-15.0 N GLUCOSE (test code = GLU) 172 MG/DL 70-110 H BLOOD UREA NITROGEN (test code = BUN) 23 MG/DL 7-18 H GLOMERULAR FILTRATION RATE (test code = GFR) 55 estGFR >60 L The Glomerular Filtration Rate is a calculated parameterbased on serum Creatinine, patient age and sex. GFR valuesless than 60 mL/min/1.73 square meters are indicative ofChronic Kidney Disease. Values less than 15 mL/min/1.73square meters indicate Kidney failure. The calculation forGFR is based on the CKD-EPI (202) calculation. This formulais race indifferent and is the recommended formula for GFRby the National Kidney Foundation for Adults.The GFR will not calculate if the sex is unknown or if thepatient's age is <18 years. CREATININE (test code = CREAT) 1.6 MG/DL 0.8-1.3 H CALCIUM (test code = CA) 7.5 MG/DL 8.5-10.1 L HEPATIC FUNCTION [id number] 22:09:00* Test Item Value Reference Range Interpretation Comme nts TOTAL PROTEIN (test code = PROT) 6.5 G/DL 6.4-8.2 N ALBUMIN (test code = ALB) 3.5 G/DL 3.4-5.0 N BILIRUBIN TOTAL (test code = BILT) 0.40 MG/DL 0.2-1.2 N BILIRUBIN DIRECT (test code = BILD) < 0.10 MG/DL 0.00-0.30 N BILIRUBIN INDIRECT (test cod e = BILIND) 0.30 MG/DL 0.2-1.2 N SGOT/AST (test code = AST) 36 Unit/L 15-37 N SGPT/ALT (test code = ALT) 26 Unit/L 12-78 N ALKALINE PHOSPHATASE TOTAL ( test code = ALKP) 71 Unit/L 50-136 N [id number] 22:09:00* Test Item Value Reference Range Interpretation Comme nts LIPASE (test code = LIP) 20 Unit/L 114-286 L TROP-I HIGH [id number] 22:09:00* Test Item Value Reference Range Interpretation Comme [facility] TROP-I HIGH SENSITIVITY (test code = TROPIHS) 13.0 ng/L 0-78 N CAUTION: Units o f the current test methodology (ng/L) differfrom the prior test methodology (ng/mL) by a factor of 1000. 99th Percentile Upper Reference Limit (URL):Females: 54 ng/LMales: 79 ng/L In order to distinguish acute elevations of high sensitivitytroponin from other clinical conditions, the FourthUniversal Definition of Myocardial Infarction stressesclinical assessment and the demonstration of a rise and/orfall in serial troponin results above the URL. Results from different methodologies should not be comparedto one another as quantitative results and URLs may varyby method. [id number] 22:09:00* Test Item Value Reference Range Interpretation Comme nts ALCOHOL (test code = ALC) < 3 MG/DL 0-10 N - XR CHEST 1 [id number] 21:55:00 [facility] : 1980 Sex: M Name: BRUCE OSWALD Bland : 1980 Age/S: 43 / M [address] Unit #: [id number] Loc: [place] [address] Phys: Jcarlos Mora MD Acct: [id number] Dis Date: Status: PRE ER PHONE #: [phone] Exam Date: 06/14/20232124 FAX #: Reason: chest pain EXAMS: CPT: [id number] XR CHEST 1V 01912 Fluoro Time: DAP (Gy m2): Air Kerma (mGy): EXAM: - XR CHEST 1 V CLINICAL HISTORY: chest pain TECHNIQUE: Single frontal view. COMPARISON: None available. LOCATION: H65 FINDINGS: The trachea appears normal. The mediastinum and cardiac silhouette are within normal limits for size. The lungs are clear. No pleural effusions. Visualized soft tissues and osseous structures are grossly unremarkable. IMPRESSION: No acute cardiopulmonary process. at 2155 Reported and signed by: Jacobo Willis D.O. CC: Jcarlos Mora MD PAGE 1 Signed Report Name: BRUCE OSWALD Bland : 1980 Age/S: 43 / M [address] Unit #:[id number] Loc: [place] [address] Phys: Jcarlos Mora MD Acct: [id number] Dis Date: Status: PRE ER PHONE #: [phone] Exam Date: 06/14/20232124 FAX #: Reason: chest pain EXAMS: CPT: [id number] CHEST 1 V 90747 Fluoro Time: DAP (Gy m2): Air Kerma (mGy): (Continued) Technologist: Alistair Long, RT(R)(CT) Trnscb Date/Time: 06/14/2023 (2154) BarbaraJW22 Orig Print D/T: S: 06/14/2023 (2158) PAGE 2 Signed ReportComplete Metabolic [id number] 09:11:50* Test Item Value Reference Range Interpretation Comme nts NA (test code = 5030717531) 134 mmol/L 135-145 L K (test code = 7679398150) 4.5 mmol/L 3.5-5.0 CL (test code = 6870979253) 102 mmol/L 98-108 CO2 TOTAL (test code = 6842103418) 15 mmol/L 23-31 L AGAP (test code = 0237500384) 17 2-16 H BUN (test code = 5026861152) 29 mg/dL 7-23 H GLUCOSE (test code = 4208397002) 192 mg/dL 70-110 H CREATININE (test code = 6357847266) 1.67 mg/dL 0.60-1.25 H TOTAL BILI (test code = 5051266236) 0.8 mg/dL 0.1-1.1 CALCIUM (test code = 0291587654) 9.9 mg/dL 8.6-10.6 T PROTEIN (test code = 4244470574) 8.8 g/dL 6.3-8.2 H ALBUMIN (test code = 7783848125) 5.4 g/dL 3.5-5.0 H ALK PHOS (test code = 1199051006) 89 U/L 34-122 ALTv (test code = 1742-6) 37 U/L 5-50 AST(SGOT) (test code = 7868977253) 54 U/L 13-40 H eGFR (test code = 0515249292) 45.6 mL/min/1.73m2 MARIA LUZ (test code = MARIA LUZ) [...] or abnormalities in imaging tests). Lab Interpretation (test code = 65642-4) Abnormal [facility] CenterLipase, [id number] 09:11:50* Test Item Value Reference Range Interpretation Comme nts LIPASE (test code = 3993569713) 19 U/L 0-220 Lab Interpretation (test cod e = 17129-9) Normal [facility] CenterCB with Adwwfxksnjay6087-18-96 08:59:28* Test Item Value Reference Range Interpretation Comme nts WBC (test code = 6690-2) 14.53 See_Comment H [Automated message] The system which generated this result transmitted reference range: 4.20 - 10.70 10*3/?L. The reference range was not used to interpret this result as normal/abnormal. RBC (test code = 789-8) 5.37 See_Comment [Automated message] The system which generated this result transmitted reference range: 4.26 - 5.52 10*6/?L. The reference range was not used to interpret this result as normal/abnormal. HGB (test code = 718-7) 17.0 g/dL 12.2-16.4 H HCT (test code = 4544-3) 48.2 % 38.4-49.3 MCV (test code = 787-2) 89.8 fL 81.7-95.6 MCH (test code = 785-6) 31.7 pg 26.1-32.7 MCHC (test code = 786-4) 35.3 g/dL 31.2-35.0 H RDW-SD (test code = 91553-6) 44.0 fL 38.5-51.6 RDW-CV (test code = 788-0) 13.3 % 12.1-15.4 PLT (test code = 777-3) 150 See_Comment [Automated message] The system which generated this result transmitted reference range: 150 - 328 10*3/?L. The reference range was not used to interpret this result as normal/abnormal. MPV (test code = 71290-6) 12.0 fL 9.8-13.0 NRBC/100 WBC (test code = 9658891794) 0.0 See_Comment [Automated message] The system which generated this result transmitted reference range: 0.0 - 10.0 /100 WBCs. The reference range was not used to interpret this result as normal/abnormal. NRBC x10^3 (test code = 4449618726) See_Comment [Automated message] The system which generated this result transmitted reference range: 10*3/?L. The reference range was not used to interpret this result as normal/abnormal. GRAN MAT (NEUT) % (test code = 770-8) 83.1 % IMM GRAN % (test code = 4188016360) 0.40 % LYMPH % (test code = 736-9) 14.0 % MONO % (test code = 5905-5) 2.3 % EOS % (test code = 713-8) 0.0 % BASO % (test code = 706-2) 0.2 % GRAN MAT x10^3(ANC) (test code = 3771253658) 12.08 10*3/uL 1.99-6.95 H IMM GRAN x10^3 (test code = 7908433497) 0.06 10*3/uL 0.00-0.06 LYMPH x10^3 (test code = 731-0) 2.03 10*3/uL 1.09-3.23 MONO x10^3 (test code = 742-7) 0.33 10*3/uL 0.36-1.02 L EOS x10^3 (test code = 711-2) 0.06-0.53 L BASO x10^3 (test code = 704-7) 0.03 10*3/uL 0.01-0.09 Lab Interpretation (test code = 41757-2) Abnormal [facility] CenterTROPONIN [id number] 13:30:00* Test Item Value Reference Range Interpretation Comme nts TROPONIN I (test code = 6869336415) 0.020 ng/mL See_Comment [Automated message] The system which generated this result transmitted reference range: <=0.034. The reference range was not used to interpret this result as normal/abnormal. MARIA LUZ (test code = MARIA LUZ) [...] use of biotin. ? Lab Interpretation (test code = 40986-2) Normal [facility] CenterMagnesium Hpljn2534-25-04 11:02:00* Test Item Value Reference Range Interpretation Comme nts MAGNESIUM (test code = 2746367768) 2.0 mg/dL 1.7-2.4 Lab Interpretation (test cod e = 34379-0) Normal [facility] METABOLIC PANEL (NA, K, CL, CO2, GLUCOSE, BUN, CREATININE, CA)2020-04-18 11:02:00* Test Item Value Reference Range Interpretation Comme nts NA (test code = 2585367203) 138 mmol/L 135-145 K (test code = 6907991145) 3.7 mmol/L 3.5-5 CL (test code = 0224080494) 112 mmol/L 98-108 H CO2 TOTAL (test code = 8923120171) 22 mmol/L 23-31 L AGAP (test code = 7621914351) 2-16 BUN (test code = 2387631563) 12 mg/dL 7-23 GLUCOSE (test code = 9374775203) 112 mg/dL 70-110 H CREATININE (test code = 2869999084) 0.96 mg/dL 0.6-1.25 CALCIUM (test code = 1526479753) 8.6 mg/dL 8.6-10.6 eGFR Calculation (Non-) (test code = 7332032747) mL/min/1.73m2 eGFR Calculation () (test code = 6752056205) mL/min/1.73m2 MARIA LUZ (test code = MARIA LUZ) [...] or abnormalities in imaging tests). Lab Interpretation (test code = 72067-8) Abnormal [facility] CenterDrug Screen Panel 3 [id number] 22:11:00* Test Item Value Reference Range Interpretation Comme nts COMPA S (test code = 5607522611) Negative Negative BENZO S (test code = 4197229624) Negative Negative TRICYCLIC (test code = 0641510620) Negative Negative MARIA LUZ (test code = MARIA LUZ) Serum Drug Screen Cutoff Ranges Barbiturates ? ? - 3 mcg/mLBenzodiazepines ?- 50 ng/mLTCA ?- 300 ng/mL Test developed and characteristics determined by [facility]. The results are to be used only for medical (i.e., treatment) purposes. Unconfirmed screening results must not be used for non-medical purposes (e.g., employment testing, legal testing). Lab Interpretation (test code = 83518-2) Normal [facility] CenterLIPID PANEL (87792)(TOTAL CHOLESTEROL, TRIGLYCERIDES, HDL)2020-04-17 18:13:00* Test Item Value Reference Range Interpretation Comme nts CHOL (test code = 6839103603) 121 mg/dL 120-200 HDL (test code = 7939249318) 42 mg/dL >40 HDLC RATIO (test code = 7358331304) See_Comment [[employer]It] The system which generated this result transmitted reference range: <=5.0. The reference range was not used to interpret this result as normal/abnormal. TRIG (test code = 9796971536) 41 mg/dL 30-170 LDL CHOL (test code = 54719-1) 71 mg/dL See_Comment [[employer]] The system which generated this result transmitted reference range: <=160. The reference range was not used to interpret this result as normal/abnormal. VLDL (test code = 5154586706) 8 mg/dL 5-60 Lab Interpretation (test code = 32994-6) Normal [facility] CenterN-TERMINAL [id number] 17:06:00* Test Item Value Reference Range Interpretation Comme nts NT-proBNP (test code = 0202414583) 51 pg/mL See_Comment [Automated message] The system which generated this result transmitted reference range: <=125. The reference range was not used to interpret this result as normal/abnormal. MARIA LUZ (test code = MARIA LUZ) Biotin has been reported to cause a negative bias, interpret results relative to patient's use of biotin. Lab Interpretation (test code = 37839-9) Normal [facility] CenterTHYROID STIMULATING [id number] 16:58:00 * Test Item Value Reference Range Interpretation Comme nts TSH (test code = 0262369209) See_Comment [Automated messa ge] The system which generated this result transmitted reference range: 0.45 - 4.70 mIU/L. The reference range was not used to interpret this result as normal/abnormal. Lab Interpretation (test code = 20739-8) Normal [facility] CenterD-[id number] 16:56:00* Test Item Value Reference Range Interpretation Comments D-DIMER (test code = 2618379942) <0.27 See_Comment [Automated message] The system which generated this result transmitted reference range: <0.41 ?g/mL (FEU). The reference range was not used to interpret this result as normal/abnormal. MARIA LUZ (test code = MARIA LUZ) This test may be used in conjunction with a clinical pretest [...] context, in forming a diagnosis. Lab Interpretation (test code = 73511-9) Normal [facility] CenterProthrombin Time / [id number] 16:43:00* Test Item Value Reference Range Interpretation Comme nts PROTIME PATIENT (test code = 5964-2) See_Comment [Automated Anapsisa ge] The system which generated this result transmitted reference range: 12.0 - 14.7 Seconds. The reference range was not used to interpret this result as normal/abnormal. INR (test code = 6301-6) Normal INR <1.1; Warfarin Therapeutic range 2.0 to 3.0 or 2.5 to 3.5, depending upon the indications. Lab Interpretation (test code = 34697-9) Normal [facility] CenterXR CHEST 1 [id number] 16:42:54No acute cardiopulmonary abnormality. Preliminary Report Dictated by Resident: Heri Bob MD., have reviewed this study and agree with theabove report.XR CHEST 1 VW Comparison: None available Technique: AP radiographs of the chest History: N/V, Chest Pain Findings:The lungs are well expanded and clear. No pleural effusion, focalconsolidation, or pneumothorax is identified. The cardiomediastinal silhouette is normal in size. No acute osseous abnormality is present. [facility], Radiant Results Inft User - 04/17/2020 11:44 AM CDTXR CHEST 1 VWComparison: None availableTechnique: AP radiographs of the chestHistory: N/V, Chest Pain Findings:The lungs are well expandedand clear. No pleural effusion, focalconsolidation, or pneumothorax is identified. The cardiomediastinal silhouette is normal in size. No acute osseous abnormality is present.IMPRESSIONNo acute cardiopulmonary abnormality.Preliminary Report Dictated by Resident: Heri Ling MD., have reviewed this study and agree with theabove report.[facility] CenterPhosphorus Mmlet2571-45-23 16:09:00* Test Item Value Reference Range Interpretation Comme nts PHOSPHORUS (test code = 6984349099) 2.5 mg/dL 2.5-5 Lab Interpretation (test cod e = 27876-0) Normal [facility] CenterGlycosylated Hemoglobin (A1C)2020-04-17 15:56:00* Test Item Value Reference Range Interpretation Comme nts HGB A1C (test code = 4548-4) 5.5 % 4-6 MARIA LUZ (test code = MARIA LUZ) %A1C (NGSP) Interpretation (ADA)4.8-5.6 ? ? Normal or (Non-Diabetic Range)5.7-6.4 ? ? Increased Risk (Pre-Diabetic)>6.5 ?Diabetes Indicated Lab Interpretation (test code = 15537-6) Normal [facility] CenterTROPODESTININ [id number] 15:39:00* Test Item Value Reference Range Interpretation Comme nts TROPONIN I (test code = 6232942700) 0.031 ng/mL See_Comment [Automated message] The system which generated this result transmitted reference range: <=0.034. The reference range was not used to interpret this result as normal/abnormal. MARIA LUZ (test code = MARIA LUZ) [...] use of biotin. ? Lab Interpretation (test code = 48558-6) Normal [facility] CenterCOVID-19 (ID NOW RAPID TESTING)2020-04-17 14:00:00* Test Item Value Reference Range Interpretation Comme nts SARS-CoV-2 Rapid ID NOW (test code = 50130-2) Not Detected Not Detected MARIA LUZ (test code = MARIA LUZ) ID NOW COVID-19 As say is an isothermal nucleic acid amplification test intended for the qualitative detection of nucleic acid from SARS-CoV-2 viral RNA in nasopharyngeal (S[employer]IOR [employer] DEVELOPER) specimens. It is used under Emergency Use [...] patient testing if clinically indicated. Lab Interpretation (test code = 68452-9) Normal [facility] CARE VENOUS BLOOD [id number] 13:25:00 * Test Item Value Reference Range Interpretation Comme nts PH (test code = 6933364783) 7.32-7.42 PCO2 NAS (test code = 3334461334) See_Comment L [Automated messa ge] The system which generated this result transmitted reference range: 41 - 51 mmHg. The reference range was not used to interpret this result as normal/abnormal. PO2 NAS (test code = 8344630675) See_Comment [Automated messa ge] The system which generated this result transmitted reference range: 25 - 40 mmHg. The reference range was not used to interpret this result as normal/abnormal. HCO3 NAS (test code = 0673455631) See_Comment L [Automated messa ge] The system which generated this result transmitted reference range: 24 - 28 mEq/L. The reference range was not used to interpret this result as normal/abnormal. AC VBE(BEAKER) (test code = 8890117044) mEq/L Lab Interpretation (test code = 52030-3) Abnormal [facility] CenterCREATINE [id number] 13:01:00* Test Item Value Reference Range Interpretation Comme nts CK (test code = 9455251291) 174 U/L 33-194 Lab Interpretation (test cod e = 14754-1) Normal [facility] CenterCB WITH [id number] 12:32:00* Test Item Value Reference Range Interpretation Comme nts WBC (test code = 6690-2) See_Comment H [Automated messa ge] The system which generated this result transmitted reference range: 4.20 - 10.70 10*3/?L. The reference range was not used to interpret this result as normal/abnormal. RBC (test code = 789-8) See_Comment [Automated Anapsisa ge] The system which generated this result transmitted reference range: 4.26 - 5.52 10*6/?L. The reference range was not used to interpret this result as normal/abnormal. HGB (test code = 718-7) 16.4 g/dL 12.2-16.4 HCT (test code = 4544-3) 45.9 % 38.4-49.3 MCV (test code = 787-2) 90.4 fL 81.7-95.6 MCH (test code = 785-6) 32.3 pg 26.1-32.7 MCHC (test code = 786-4) 35.7 g/dL 31.2-35 H RDW-SD (test code = 67575-6) 43.5 fL 38.5-51.6 RDW-CV (test code = 788-0) 12.9 % 12.1-15.4 PLT (test code = 777-3) See_Comment [Automated Anapsisa ge] The system which generated this result transmitted reference range: 150 - 328 10*3/?L. The reference range was not used to interpret this result as normal/abnormal. MPV (test code = 91136-2) 11.6 fL 9.8-13 NRBC/100 WBC (test code = 6430865374) See_Comment [Automated [employer] ssage] The system which generated this result transmitted reference range: 0.0 - 10.0 /100 WBCs. The reference range was not used to interpret this result as normal/abnormal. NRBC x10^3 (test code = 6910541187) <0.01 See_Comment [Automated Anapsisa ge] The system which generated this result transmitted reference range: 10*3/?L. The reference range was not used to interpret this result as normal/abnormal. GRAN MAT (NEUT) % (test code = 770-8) 43.3 % IMM GRAN % (test code = 1724256017) 0.60 % LYMPH % (test code = 736-9) 46.1 % MONO % (test code = 5905-5) 8.3 % EOS % (test code = 713-8) 1.3 % BASO % (test code = 706-2) 0.4 % GRAN MAT x10^3(ANC) (test code = 3937647370) 5.12 10*3/uL 1.99-6.95 IMM GRAN x10^3 (test code = 1615198502) 0.07 10*3/uL 0-0.06 H LYMPH x10^3 (test code = 731-0) 5.45 10*3/uL 1.09-3.23 H MONO x10^3 (test code = 742-7) 0.98 10*3/uL 0.36-1.02 EOS x10^3 (test code = 711-2) 0.15 10*3/uL 0.06-0.53 BASO x10^3 (test code = 704-7) 0.05 10*3/uL 0.01-0.09 Lab Interpretation (test code = 48351-1) Abnormal [facility] [id number] 12:29:00* Test Item Value Reference Range Interpretation Comme nts TROPONIN I (test code = 5776426066) 0.038 ng/mL See_Comment H [Automated message] The system which generated this result transmitted reference range: <=0.034. The reference range was not used to interpret this result as normal/abnormal. MARIA LUZ (test code = MARIA LUZ) [...] use of biotin. ? Lab Interpretation (test code = 90329-0) Abnormal [facility] CenterCOMP. METABOLIC PANEL (24195)2020-04-17 12:18:00* Test Item Value Reference Range Interpretation Comme nts NA (test code = 8388130950) 135 mmol/L 135-145 K (test code = 1671105947) 3.6 mmol/L 3.5-5 CL (test code = 9099228613) 106 mmol/L 98-108 CO2 TOTAL (test code = 9436843031) 16 mmol/L 23-31 L AGAP (test code = 4332026145) 2-16 BUN (test code = 2662579867) 29 mg/dL 7-23 H GLUCOSE (test code = 9906013853) 157 mg/dL 70-110 H CREATININE (test code = 2945437298) 1.53 mg/dL 0.6-1.25 H TOTAL BILI (test code = 8949313427) 0.4 mg/dL 0.1-1.1 CALCIUM (test code = 9012755894) 9.5 mg/dL 8.6-10.6 T PROTEIN (test code = 0385734903) 8.3 g/dL 6.3-8.2 H ALBUMIN (test code = 3410190686) 4.7 g/dL 3.5-5 ALK PHOS (test code = 1905021584) 74 U/L 34-122 ALTv (test code = 1742-6) 29 U/L 5-50 AST(SGOT) (test code = 3171018247) 28 U/L 13-40 eGFR Calculation (Non-) (test code = 6159854067) mL/min/1.73m2 eGFR Calculation () (test code = 8024076122) mL/min/1.73m2 MARIA LUZ (test code = MARIA LUZ) [...] or abnormalities in imaging tests). Lab Interpretation (test code = 48730-4) Abnormal [facility] CenterLIPASE, [id number] 12:17:00* Test Item Value Reference Range Interpretation Comme nts LIPASE (test code = 6719034887) 102 U/L 0-220 Lab Interpretation (test cod e = 80502-5) Normal [facility] CenterBASI METABOLIC PANEL (NA, K, CL, CO2, GLUCOSE, BUN, CREATININE, CA)2020-04-09 11:06:00* Test Item Value Reference Range Interpretation Comme nts NA (test code = 8171691408) 139 mmol/L 135-145 K (test code = 7278572805) 4.1 mmol/L 3.5-5 CL (test code = 6111946968) 111 mmol/L 98-108 H CO2 TOTAL (test code = 0959598939) 24 mmol/L 23-31 AGAP (test code = 2399527430) 2-16 BUN (test code = 4639748591) 14 mg/dL 7-23 GLUCOSE (test code = 2287399662) 98 mg/dL 70-110 CREATININE (test code = 6212231822) 0.90 mg/dL 0.6-1.25 CALCIUM (test code = 7466623311) 8.5 mg/dL 8.6-10.6 L eGFR Calculation (Non-) (test code = 2339905752) mL/min/1.73m2 eGFR Calculation () (test code = 6909513596) mL/min/1.73m2 MARIA LUZ (test code = MARIA LUZ) [...] or abnormalities in imaging tests). Lab Interpretation (test code = 22785-4) Abnormal [facility] WITH [id number] 10:49:00* Test Item Value Reference Range Interpretation Comme nts WBC (test code = 6690-2) See_Comment H [Automated Anapsisa Bangcle] The system which generated this result transmitted reference range: 4.20 - 10.70 10*3/?L. The reference range was not used to interpret this result as normal/abnormal. RBC (test code = 789-8) See_Comment L [Automated messa ge] The system which generated this result transmitted reference range: 4.26 - 5.52 10*6/?L. The reference range was not used to interpret this result as normal/abnormal. HGB (test code = 718-7) 13.3 g/dL 12.2-16.4 HCT (test code = 4544-3) 38.4 % 38.4-49.3 MCV (test code = 787-2) 92.8 fL 81.7-95.6 MCH (test code = 785-6) 32.1 pg 26.1-32.7 MCHC (test code = 786-4) 34.6 g/dL 31.2-35 RDW-SD (test code = 74429-4) 47.0 fL 38.5-51.6 RDW-CV (test code = 788-0) 13.7 % 12.1-15.4 PLT (test code = 777-3) See_Comment L [Automated Anapsisa ge] The system which generated this result transmitted reference range: 150 - 328 10*3/?L. The reference range was not used to interpret this result as normal/abnormal. MPV (test code = 98226-4) 12.2 fL 9.8-13 NRBC/100 WBC (test code = 5218715707) See_Comment [Automated [employer] ssage] The system which generated this result transmitted reference range: 0.0 - 10.0 /100 WBCs. The reference range was not used to interpret this result as normal/abnormal. NRBC x10^3 (test code = 6366477330) <0.01 See_Comment [Automated messa ge] The system which generated this result transmitted reference range: 10*3/?L. The reference range was not used to interpret this result as normal/abnormal. GRAN MAT (NEUT) % (test code = 770-8) 61.9 % IMM GRAN % (test code = 6489558997) 0.40 % LYMPH % (test code = 736-9) 30.3 % MONO % (test code = 5905-5) 6.9 % EOS % (test code = 713-8) 0.2 % BASO % (test code = 706-2) 0.3 % GRAN MAT x10^3(ANC) (test code = 2633387042) 7.44 10*3/uL 1.99-6.95 H IMM GRAN x10^3 (test code = 6555401031) 0.05 10*3/uL 0-0.06 LYMPH x10^3 (test code = 731-0) 3.64 10*3/uL 1.09-3.23 H MONO x10^3 (test code = 742-7) 0.83 10*3/uL 0.36-1.02 EOS x10^3 (test code = 711-2) <0.03 0.06-0.53 L BASO x10^3 (test code = 704-7) 0.04 10*3/uL 0.01-0.09 Lab Interpretation (test code = 67451-0) Abnormal [facility] CenterCREATINE [id number] 10:38:00* Test Item Value Reference Range Interpretation Comme nts CK (test code = 3304241254) 569 U/L 33-194 H Lab Interpretation (test cod e = 29672-4) Abnormal [facility] CenterBASI METABOLIC PANEL (NA, K, CL, CO2, GLUCOSE, BUN, CREATININE, [place])2020-04-08 11:23:00* Test Item Value Reference Range Interpretation Comme nts NA (test code = 9157966011) 136 mmol/L 135-145 K (test code = 8815186816) 5.2 mmol/L 3.5-5 H CL (test code = 5207517876) 107 mmol/L 98-108 CO2 TOTAL (test code = 5902014304) 22 mmol/L 23-31 L AGAP (test code = 6475761264) 2-16 BUN (test code = 2262786732) 24 mg/dL 7-23 H GLUCOSE (test code = 2446649520) 132 mg/dL 70-110 H CREATININE (test code = 3274031645) 1.30 mg/dL 0.6-1.25 H CALCIUM (test code = 5217914430) 8.8 mg/dL 8.6-10.6 eGFR Calculation (Non-) (test code = 8442325666) mL/min/1.73m2 eGFR Calculation () (test code = 6416225215) mL/min/1.73m2 MARIA LUZ (test code = MARIA LUZ) [...] or abnormalities in imaging tests). Lab Interpretation (test code = 47425-4) [facility]normal [facility] (ID NOW RAPID TESTING)2020-04-08 05:54:00* Test Item Value Reference Range Interpretation Comme nts SARS-CoV-2 Rapid ID NOW (test code = 81467-4) Not Detected Not Detected MARIA LUZ (test code = MARIA LUZ) ID NOW COVID-19 As say is an isothermal nucleic acid amplification test intended for the qualitative detection of nucleic acid from SARS-CoV-2 viral RNA in nasopharyngeal (SENIOR [employer]EE DEVELOPER) specimens. It is used under Emergency Use [...] patient testing if clinically indicated. Lab Interpretation (test code = 47960-5) Normal [facility] V8875-03-57 05:01:00* Test Item Value Reference Range Interpretation Comme nts TROPONIN I (test code = 7272147175) <0.012 See_Comment [Automated message] The system which generated this result transmitted reference range: <=0.034 ng/mL. The reference range was not used to interpret this result as normal/abnormal. MARIA LUZ (test code = MARIA LUZ) [...] use of biotin. ? Lab Interpretation (test code = 19657-5) Normal [facility] [id number] 04:38:00* Test Item Value Reference Range Interpretation Comme nts TROPONIN I (test code = 7924380364) <0.012 See_Comment [Automated message] The system which generated this result transmitted reference range: <=0.034 ng/mL. The reference range was not used to interpret this result as normal/abnormal. MARIA LUZ (test code = MARIA LUZ) [...] use of biotin. ? Lab Interpretation (test code = 80820-8) Normal [facility] (NA, K, CL, CO2, GLUCOSE, BUN, CREATININE, [place])2020-04-08 04:28:00* Test Item Value Reference Range Interpretation Comme nts NA (test code = 1662374262) 136 mmol/L 135-145 K (test code = 2129042206) 4.3 mmol/L 3.5-5 CL (test code = 6298687674) 97 mmol/L 98-108 L CO2 TOTAL (test code = 9866279597) 22 mmol/L 23-31 L AGAP (test code = 0248725803) 2-16 H BUN (test code = 2139997659) 31 mg/dL 7-23 H GLUCOSE (test code = 1771133533) 163 mg/dL 70-110 H CREATININE (test code = 8750863605) 2.80 mg/dL 0.6-1.25 H CALCIUM (test code = 7432424101) 10.9 mg/dL 8.6-10.6 H eGFR Calculation (Non-) (test code = 0381328991) mL/min/1.73m2 eGFR Calculation () (test code = 3018125802) mL/min/1.73m2 MARIA LUZ (test code = MARIA LUZ) [...] or abnormalities in imaging tests). Lab Interpretation (test code = 86526-5) Abnormal [facility] Function Panel (ALB, T.PRO, BILI T, BU/BC, ALT, AST, ALK PHOS)2020-04-08 04:28:00* Test Item Value Reference Range Interpretation Comme nts TOTAL BILI (test code = 1247484493) 0.6 mg/dL 0.1-1.1 BILI UNCON (test code = 4237786619) 0.6 mg/dL 0.1-1.1 BILI CONJ (test code = 6464923877) 0.0 mg/dL 0-0.3 T PROTEIN (test code = 9493192697) 10.4 g/dL 6.3-8.2 H ALBUMIN (test code = 1020872058) 5.8 g/dL 3.5-5 H ALK PHOS (test code = 9320778761) 104 U/L 34-122 ALTv (test code = 1742-6) 35 U/L 5-50 AST(SGOT) (test code = 6258907071) 41 U/L 13-40 H Lab Interpretation (test cod e = 41363-0) Abnormal [facility] CenterLipase Readr1984-66-88 04:28:00* Test Item Value Reference Range Interpretation Comme nts LIPASE (test code = 2665757529) 22 U/L 0-220 Lab Interpretation (test cod e = 33792-3) Normal [facility] CenterCREATINE TPIZBJ9767-71-70 04:27:00* Test Item Value Reference Range Interpretation Comme nts CK (test code = 3479269502) 440 U/L 33-194 H Lab Interpretation (test cod e = 35802-7) Abnormal [facility] CenterCBC WITH RPNYRUIYFYXS9538-81-86 04:16:00* Test Item Value Reference Range Interpretation Comme nts WBC (test code = 6690-2) See_Comment H [Automated message] The system which generated this result transmitted reference range: 4.20 - 10.70 10*3/?L. The reference range was not used to interpret this result as normal/abnormal. RBC (test code = 789-8) See_Comment [Automated message] The system which generated this result transmitted reference range: 4.26 - 5.52 10*6/?L. The reference range was not used to interpret this result as normal/abnormal. HGB (test code = 718-7) 17.4 g/dL 12.2-16.4 H HCT (test code = 4544-3) 49.3 % 38.4-49.3 MCV (test code = 787-2) 90.5 fL 81.7-95.6 MCH (test code = 785-6) 31.9 pg 26.1-32.7 MCHC (test code = 786-4) 35.3 g/dL 31.2-35 H RDW-SD (test code = 29511-8) 44.6 fL 38.5-51.6 RDW-CV (test code = 788-0) 13.4 % 12.1-15.4 PLT (test code = 777-3) See_Comment [Automated message] The system which generated this result transmitted reference range: 150 - 328 10*3/?L. The reference range was not used to interpret this result as normal/abnormal. MPV (test code = 16993-2) 12.7 fL 9.8-13 NRBC/100 WBC (test code = 0733857648) See_Comment [Automated message] The system which generated this result transmitted reference range: 0.0 - 10.0 /100 WBCs. The reference range was not used to interpret this result as normal/abnormal. NRBC x10^3 (test code = 1153579572) <0.01 See_Comment [Automated message] The system which generated this result transmitted reference range: 10*3/?L. The reference range was not used to interpret this result as normal/abnormal. GRAN MAT (NEUT) % (test code = 770-8) 81.0 % IMM GRAN % (test code = 4519097392) 0.80 % LYMPH % (test code = 736-9) 14.8 % MONO % (test code = 5905-5) 2.9 % EOS % (test code = 713-8) 0.1 % BASO % (test code = 706-2) 0.4 % GRAN MAT x10^3(ANC) (test code = 4334928056) 12.79 10*3/uL 1.99-6.95 H IMM GRAN x10^3 (test code = 5970121004) 0.12 10*3/uL 0-0.06 H LYMPH x10^3 (test code = 731-0) 2.34 10*3/uL 1.09-3.23 MONO x10^3 (test code = 742-7) 0.46 10*3/uL 0.36-1.02 EOS x10^3 (test code = 711-2) <0.03 0.06-0.53 L BASO x10^3 (test code = 704-7) 0.06 10*3/uL 0.01-0.09 Lab Interpretation (test code = 74050-4) Abnormal [facility] - DRUG SCREEN FYKZUB9644-98-04 02:25:00* Test Item Value Reference Range Interpretation Comme nts BENZO U (test code = 7536363911) Negative Negative COMPA U (test code = 4102350365) Negative Negative AMPHET (test code = 1122214497) Negative Negative THC (test code = 8377644805) Negative Negative METHADONE (test code = 6573278416) Negative Negative Meth U (test code = 2539435727) Presumptive Positive Negative A OPIATES (test code = 5598403880) Negative Negative Cocaine Metabolite (test code = 1317512271) Presumptive Positive Negative A PROPOXY (test code = 2128158929) Negative Negative Tric U (test code = 2687593630) Negative Negative PCP (test code = 2675228518) Negative Negative OXYCOD (test code = 4359878401) Negative Negative MARIA LUZ (test code = MARIA LUZ) [...] employment testing, legal testing). Lab Interpretation (test code = 39194-1) Abnormal [facility] CenterUrinalysis2020-07-02 02:19:00* Test Item Value Reference Range Interpretation Comme nts APPEARANCE (test code = 7900049138) Cloudy Clear A COLOR (test code = 2279921484) Reyna Yellow A PH (test code = 8549476954) 4.8-8.0 SP GRAVITY (test code = 5869774191) 1.003-1.030 GLU U QUAL (test code = 1807433262) Normal Normal BLOOD (test code = 5425170758) Negative Negative INTERFERENCE FRO M ASCORBIC ACID MAY CAUSE FALSE NEGATIVE RESULT KETONES (test code = 6404021548) 5 mg/dL Negative A PROTEIN (test code = 2887-8) 100 mg/dL Negative A UROBILIN (test code = 7289339553) 2.0 mg/dL Normal A BILIRUBIN (test code = 5501191819) Negative Negative NITRITE (test code = 6646150873) Negative Negative [place] (test code = 7032038132) Negative Negative RBC/HPF (test code = 4842529127) <1 See_Comment [Automated messa ge] The system which generated this result transmitted reference range: 0 - 3 HPF. The reference range was not used to interpret this result as normal/abnormal. WBC/HPF (test code = 7220732803) See_Comment [Automated messa ge] The system which generated this result transmitted reference range: 0 - 5 HPF. The reference range was not used to interpret this result as normal/abnormal. BACTERIA (test code = 5167310353) Few Negative A MUCOUS (test code = 9851225648) Moderate Negative LPF A SQ EPITH (test code = 1724725780) HPF Lab Interpretation (test code = 63113-4) Abnormal [facility] Notes Date/Time Note Provider Source 2023-06-16 14:39:02 0268-97-23P54:39:02F ormatting of this note might be different from the original.Pt given printed and verbal discharge instructions regarding gastritis, drug abuse, N/V, encouraged hydration.0 Prescriptions provided.Discussed ibuprofen and to take with food to avoid GI distress.Pt verbalized understanding of instructions, pt awake alert oriented, resp reg unlabored, skin w/d, color appropriate for race, moves all ext well,pt encouraged to follow up with pcp.Advised to seek medical attention for new/prolonged/worsening of symptoms,Symptoms improved.No adverse reaction to meds given in ER noted upon discharge.PIV d'cd, dressing to site, catheter in tact.Awake, alert oriented, resp reg unlabored, skin w/d, pt leaving amb with steady gait, in no apparent distress. 85101-2Iazksxutf department OorqWT1935-65-44I66:40:03[facility] NoteTXT1.2.840.947566.1.13.104.2.7 .2.852079|[id number] for patient jrpm11726-6ZpuaUB884952491Anwknz M Herrera RN[address]TXTX[address] 17HVFKNTYRGFFQOOPXULUHMY6344-10-77 T14:40:031.2.840.959217.1.72.3.15| 1.2.840.111525.1.13.104.2.7.2.7278 [id number] Wilda Lomax RN [facility] 2023-06-16 14:09:01 8361-94-91K85:09:01F ormatting of this note might be different from the original.Patient given water, tolerated well. 23835-4Uusbtfuxz department MpbhVF2458-60-99J01:09:18[facility] NoteTXT1.2.840.979055.1.13.104.2.7 .2.026876|[id number] for patient tlxw00479-8YnlzHCFGNIETFF[address] StreetTXTX775[address]75 64DSOPUCTLAVFODKIJDMRTWC5803-11-24 T14:09:181.2.840.657377.1.72.3.15| 1.2.840.127230.1.13.104.2.7.2.7278 [id number] [facility] 2023-06-16 11:03:50 5896-60-83Q31:03:50F ormatting of this note might be different from the original.Report received from LULY Robledo 73418-4Bwyqkdirs department FcldVA8466-44-52J25:04:30[facility] department NoteTXT1.2.840.466789.1.13.104.2.7 .2.210263|[id number] for patient rrxm08849-0ReunJHBIXMNMAN37 [address] StreetTXTX[address] 84USMJYLQLGCIQKBNBAOGMUK7816-43-89 T11:04:301.2.840.024341.1.72.3.15| 1.2.840.862414.1.13.104.2.7.2.7278 [id number] [facility] 2023-06-16 07:43:30 4102-92-16Z83:43:30F ormatting of this note might be different from the original.Pt c/o generalized abdominal pain accompanied by nausea that started 2 days ago. Was seen at [facility] yesterday for same complaint, given prescriptions but patient states that he did not take them. Reports no relief in symptoms. 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 62606-2Mfqbptjdj department Triage ktnfMI9165-27-48H91:45:18[facility] Triage noteTXT1.2.840.378722.1.13.104.2.7 .2.268597|[id number] for patient hzps50329-4Dvcxqqbdv department [id number] N Dewoody RN[address]TXTX[address] 43IUZCKUPGTPKXCUDXRCYFVP3528-30-12 T07:45:181.2.840.040092.1.72.3.15| 1.2.840.279240.1.13.104.2.7.2.7278 [id number] Madeleine Mullen RN [facility] 2023-06-14 21:17:00 [id number]- 07T21:17:00 [facility] ([facility])EMERGENCY PROVIDER REPORTREPORT#:[id number] REPORT STATUS: SignedDATE:06/14/23 TIME:2116 PATIENT: BRUCE OSWALD UNIT #: [id number]#: [id number] ROOM/BED:: 81 AGE: 43 SEX: M PCP PHYS: No Primary or Family PhysicianSERVICE AUTHOR: Jcarlos Mora MD * ALL edits or amendments must be made on the electronic/computer document * HPI-General Illness Free Text HPI NotesFree Text HPI NotesIndependent Historian: EMS 43 y/o M presents w/ cc of chest pain/abdominal pain, duration of 1 day with associated vomiting/loose stools. PMhx includes HTN but does not take medications. Abdomninal pain is diffuse, non radiating, no alleviating/exacerbating factors. No prior surgical history. Chest pain is sternal, nonradiating, no alleviating or exacerbating factors. Patient received 250 cc of fluids, nitroglycerin, full aspirin prior to arrival. Pt admits to using ETOH prior to arrival (2 drinks) GeneralInitial Greet Date/Time 06/14/232116 PresentationChief Complaint Abdominal pain Review of Systems ROS StatementsAll systems rev neg except as marked. Past Medical History - AdultStated Complaint ABDOMINAL PAIN X NAUSEAllergiesCoded Allergies:No Known Allergies (06/14/23) Physical Exam Vital SignsVital SignsFirst Documented: Result Date Time Pulse Ox 97 06/14 2121 B/P 184/96 06/14 2121 B/P Mean 125 06/14 2121 O2 Delivery Room air 06/14 2121 Temp 36.7 06/14 2121 Pulse 75 06/14 2121 Resp 20 06/14 2121 Last Documented: Result Date Time Pulse Ox 98 06/14 2316 B/P 184/96 06/14 2121 B/P Mean 125 06/14 2121 O2 Delivery Room air 06/14 2121 Temp 36.7 06/14 2121 Pulse 75 06/14 2121 Resp 20 06/14 2121 Review of Vital Signs Reviewed Free Text PE NotesFree Text PE Notes ---PHYSICAL EXAM: Vital Signs Reviewed. General: Awake, Alert Neuro: No gross deficits HEENT: Normocephalic Cardiovascular: RRR Respiratory: No Stridor, Breathing Comfortably, Lungs CTAB Abdomen:Generalized abdomianl tenderness, Non-Distended Extremities: No gross deformities. Skin: No Petechiae Interpretation Diagnostics Lab Results InterpretationResultsLaboratory Tests 06/14/232247:[Embedded Image Not Available] 06/14/232124:[Embedded Image Not Available]Laboratory Tests: 06/14 Chemistry Sodium (134 - 147 mmol/L) 138 Potassium (3.4 - 5.0 mmol/L) 4.4 Chloride (100 - 108 mmol/L) 113 H Carbon Dioxide (21 - 32 mmol/L) 16 L Anion Gap (4.0 - 15.0 GAP calc) 9.0 BUN (7 - 18 MG/DL) 23 H Creatinine (0.8 - 1.3 MG/DL) 1.6 H Glomerular Filtr Rate (>60 estGFR) 55 L Glucose (70 - 110 MG/DL) 172 H Calcium (8.5 - 10.1 MG/DL) 7.5 L Total Bilirubin (0.2 - 1.2 MG/DL) 0.40 Direct Bilirubin (0.00 - 0.30 MG/DL) < 0.10 Indirect Bilirubin (0.2 - 1.2 MG/DL) 0.30 AST (15 - 37 Unit/L) 36 ALT (12 - 78 Unit/L) 26 Total Alk Phosphatase (50 - 136 Unit/L) 71 Troponin I High Sens (0 - 78 ng/L) 13.5 13.0 Total Protein (6.4 - 8.2 G/DL) 6.5 Albumin (3.4 - 5.0 G/DL) 3.5 Lipase (114 - 286 Unit/L) 20 L Hematology WBC (3.5 - 11.0 K/mm3) 13.1 H RBC (4.70 - 6.10 M/mm3) 5.12 Hgb (12.3 - 15.9 G/DL) 16.4 H Hct (35.8 - 46.7 %) 47.0 H MCV (86.3 - 98.9 Fl) 91.8 MCH (28.9 - 34.4 pg) 32.0 MCHC (32.1 - 34.5 G/DL) 34.9 H RDW (11.5 - 14.5 SD) 13.2 Plt Count (150 - 450 K/mm3) 158 MPV (7.0 - 9.6 fL) 10.80 H Toxicology Ethyl Alcohol (0 - 10 MG/DL) < 3 Recent Impressions:RADIOLOGY - XR CHEST 1 V 06/14 2120 Report Impression - Status: SIGNED Entered: 06/14/20232158 IMPRESSION: No acute cardiopulmonary process.Impression By: [email or web address] - Jacobo Willis D.O.CAT SCAN - CT ABD PELVIS W/O CONT 06/14 2210 Report Impression - Status: SIGNED Entered: 06/14/20232248 IMPRESSION: No acute findings. The appendix is not visualized and there is no pericecal inflammation. Impression By: [email or web address] - HERMINIO FAUST M.D. Re-Evaluation MDM Free Text MDM NotesAdditional Text Chest X-Ray images independently evaluated and reviewed by me: Findings:Pneumothorax Not PresentClinically Significant Pleural Effusion Not Present PERC: Age >= 50HR >= 808EsY5 < 95%Unilateral Leg SwellingHemoptysisRecent Trauma/SurgeryPrior PE/DVTHormone Use Neg to above, Patient is clinically ruled out for pulmonary embolism by PERC Criteria. Differential includes: Aortic Dissection, ACS, Pulmonary Embolism, Pneumonia, Esophagitis, Pneumothorax, Pericarditis, Myocarditis, Pericardial Effusion, Booerhaaves Independent Historian: EMS Independently Reviewed Labs and Imaging as well as accompanying Reports: Indepe ndent EKG INTERPRETATION by Dr Jcarlos Mora MD Time at Intrepretation:2116 Rhythm: Normal SinusSegments: Normal appeareanceRate: normalQRS: normalQTC: normal Interpretation:- NSR - No characterstics concerning for ischemia -- EKG from EMS: Indepe ndent EKG INTERPRETATION by Dr Jcarlos Mora MD Time at Intrepretation: 2037 Rhythm: Normal SinusSegments: LVHRate: normalQRS: normalQTC: normal Interpretation:- NSR w/ evidence of LVH - No characterstics concerning for ischemia -- Regarding Abdominal Pain: Differential includes appendicitis, cholecystitis, pancreatitis, diverticulitis,intra-abdominal abscess, colitis, ischemic bowel, mesenteric ischemia, cystitis, cholecystitis, choledocholithiasis Will obtain labs and imaging to assess above differential. HEART Pathway for Early Discharge in Acute Chest Pain from [facility] on 06/14/2023 All calculations should be rechecked by clinician prior to use RESULT SUMMARY:2 pointsHEART Pathway Score Low risk0.9-1.7% 30-day MACE Repeat troponin at 3 hours and if negative, discharge home with outpatient follow-up. INPUTS:History > 0 = Slightly suspiciousEKG > 1 = Non-specific repolarization disturbanceAge > 0 = <45Risk factors > 1 = 1-2 risk factorsInitial troponin > 0 = =normal limit Indepe ndent EKG INTERPRETATION by Dr Jcarlos Mora MD Time at Intrepretation:2346 Rhythm: Normal SinusSegments: Normal appeareanceRate: normalQRS: normalQTC: normal Interpretation:- NSR - No characterstics concerning for ischemia -- CT negative for any acute process. Serial troponins negative. Given symptoms are more prominently related to vomiting patient had several episodes of vomiting in the ER, suspect rather GI etiology rather than cardiac Time: 1230a Labs and imaging reviewed. No acute findings warranting surgical consultation or admission at this time. Patient was reassessed, pain improved. Pt given 12-24 hour abdominal return precautions. Pt instructed that imaging may miss early pathology, as such patient should return within 12-24 hrs if patient has worsening abdominal pain, persistent vomiting, or any new concerning symptoms such as fever. @12:45 am, pt ambulating without assistance, discharged in custody of ED CourseMedication(s) OrderedMedication(s) Ordered:Central Nervous System Agents Sig/Sugey Start time Last Medication Dose Route Stop Time Status Admin Haloperidol Lactate 5 MG STAT STA 06/14 2127 DC 06/14 IV 06/14 Aspirin 324 MG X1ED STA 06/14 2120 CAN PO 06/14 2121 Morphine Sulfate 4 MG X1ED STA 06/14 2120 DC 06/14 IV 06/14 Electrolytic, Caloric, And Sonia Sig/Sugey Start time Last Medication Dose Route Stop Time Status Admin Sodium Chloride 1,000 ML X1ED STA 06/14 2254 DC IV 06/14 2353 Sodium Chloride 1,000 ML X1ED STA 06/14 2120 DC 06/14 IV 06/14 2220 212 Gastrointestinal Drugs Sig/Sugey Start time Last Medication Dose Route Stop Time Status Admin Metoclopramide HCl 10 MG X1ED STA 06/14 2220 DC 06/14 IV 06/14 2221 224 Ondansetron HCl 4 MG X1ED STA 06/14 2120 DC 06/14 IV 06/14 Patient Discharge Departure Vital Signs/ConditionVital SignsFirst Documented: Result Date Time Pulse Ox 97 06/14 2121 B/P 184/96 06/14 2121 B/P Mean 125 06/14 2121 O2 Delivery Room air 06/14 2121 Temp 36.7 06/14 2121 Pulse 75 06/14 2121 Resp 20 06/14 2121 Last Documented: Result Date Time Pulse Ox 98 06/14 2316 B/P 184/96 06/14 2121 B/P Mean 125 06/14 2121 O2 Delivery Room air 06/14 2121 Temp 36.7 06/14 2121 Pulse 75 06/14 2121 Resp 20 06/14 2121 All vital signs available at the time of this entry have been reviewed. Clinical ImpressionClinical ImpressionPrimary Impression: Atypical chest painSecondary Impressions: Dehydration, Generalized abdominal pain, VomitingTime of Impression 004 Disposition DecisionDischarge )( Discharged to Home Yes )( Time 44 )( Date 06/15/23 Discharge/Care Plan(Auto) PrescriptionsCurrent Visit ScriptsFAMOTIDINE (PEPCID) 20 MG PO BID FAMOTIDINE (PEPCID) 20 MG PO BID #20 TABS ONDANSETRON ODT (ZOFRAN ODT) 4 MG PO Q6H PRN PRN NAUSEA/VOMITING ONDANSETRON ODT (ZOFRAN ODT) 4 MG PO Q6H PRN PRN NAUSEA/VOMITING #15 TABS DICYCLOMINE (BENTYL) 20 MG PO QID PRN abdominal pain DICYCLOMINE (BENTYL) 20 MG PO QID PRN abdominal pain #12 TABS Patient Instructions Abdominal PainAdditional InstructionsPlease follow up with your primary care doctor within the week. If you do not have a primary care doctor, please call and make the earliest appointment for: Dr Jet Ferrer[address] [place], [place] [address]Emrgl: [email or web address] Return within 24-36 hrs if you have worsening abdominal pain, vomiting. at 0048 RPT #: [id number] OF REPORTEDEmergency department jtmpbj1803-59-13W21:17:00L.WHZS499 21471-5166DQPczjdruxi for patient btasKWIQBLNNRZUJLT5794-52-97Q52:48 :47 HCAPM 2023-05-01 06:10:19 3385-50-78T99:10:19F ormatting of this note might be different from the original.Pt given printed and verbal discharge instructions regarding toothache, Prescriptions providedDiscussed ibuprofen and to take with food to avoid GI distress, alternate with Tylenol to help with pain and/or feverDiscussed antibiotic therapy and to take until all completed unless adverse reaction occurs - if occurs, discontinue medication and follow up with pcp/seek medical attentionPt verbalized understanding of instructions,pt encouraged to follow up with pcp and or dentistAdvised to seek medical attention for new/prolonged/worsening of symptoms,No adverse reaction to meds given in ER noted upon dischargeAwake, alert oriented, resp reg unlabored, skin w/d, pt leaving in no apparent distress, 16716-8Nlgeiutlw department OwyrSP2076-89-83K23:13:59[facility] department NoteTXT1.2.840.319796.1.13.104.2.7 .2.955851|[id number] for patient [address] KyijHuqgpdrsuTyebyarynVLWR01932890 02JRKBLEGMLPYPUFCNEKNMHQ0847-38-66 T06:13:591.2.840.377590.1.72.3.15| 1.2.840.893074.1.13.104.2.7.2.7278 [id number] [facility] 2023-05-01 03:46:44 8649-24-28N96:46:44F ormatting of this note might be different from the original.CC: Pt reports toothache x 2 wks that is keeping him awake tonight. He states a left upper molar has been hurting and now a right lower molar is hurting. He has a dentist appt on 05/08. No OTC meds in last 2 daysPMHx: dental cavitiesAwake, alert, oriented, resp reg unlabored, skin warm, color appropriate for race, moves all ext without difficulty, amb with steady gait 09194-9Wvunnkquc department Triage frsiOU3879-79-91E08:48:45[facility] department Triage noteTXT1.2.840.604255.1.13.104.2.7 .2.853689|[id number] for patient [address]vdGalvestonGalvestonTXTX[address] 49JKVBFOZDAQWWPQADIJCMWQ6668-35-45 T03:48:451.2.840.162377.1.72.3.15| 1.2.840.885523.1.13.104.2.7.2.7278 [id number] [facility] 2023-05-01 03:43:00 4896-13-13S89:43:00F ormatting of this note is different from the original.[facility] Emergency Department NotePatient Name: Bruce OswaldDate of : 1980 42 year old maleTreatment Room: [place] [address]Medical Record Number: [id number] Care Physician: PATIENT DOES NOT HAVE A PCPPatient Escorted by: Self [9]Mode of Arrival: Personal means [1]EMS Treatment Prior to ED Arrival:WIRE FENCE ERECTOR treatment: None Travel and Exposure Screening:SymptomsDoes patient have any of these symptoms?: (not recorded)Exposure ScreeningHas patient had contact with someone with a communicable disease in the last month?: (not recorded)Diseases exposed to:: (not recorded)Is Patient ?: (not recorded)Exposure Date: (not recorded)Chief Complaint:Chief Complaint Patient presents with Tooth Pain History of Present Illness:Bruce Oswald is a 42 year old male who presents to the ED for evaluation of toothache X 2 weeks. Pt reports that initially he had left upper toothache that later localized to right lower jaw. No trauma. Pt has taken Ibuprofen OTC and Tylenol without relief. Has an appointment with a Dentist for May 08, 2023. No fever or chills. Pt reports mild swelling to face,History provided by: PatientLanguage tag meter operator used: No Dental ProblemLocation: Upper and lowerLower teeth location: 18/LL 2nd molar, 31/RL 2nd molar and 30/RL 1st molarQuality: Aching and constantOnset quality: GradualDuration: 2 weeksProgression: WorseningChronicity: ChronicContext: dental caries and poor dentition Context: not abscess, cap still on, not crown fracture, not dental fracture, not enamel fracture, filling intact, not intrusion, not malocclusion, not recent dental surgery and not trauma Relieved by: NothingWorsened by: NothingIneffective treatments: None triedAssociated symptoms: facial swelling Associated symptoms: no congestion, no difficulty swallowing, no drooling, no facial pain, no fever, no gum swelling, no headaches, no neck pain, no neck swelling, no oral bleeding, no oral lesions and no trismus Risk factors: lack of dental care Risk factors: no diabetes and no immunosuppression Past Medical History/Immunizations:AsthmaHTNTet anus received in last 5 years: Yes Allergies:No Known AllergiesPast Social History:Tobacco Use Every Day Smokeless Tobacco: Never used smokeless tobacco. Past Surgical History:History reviewed. No pertinent surgical history.Review of Systems: Review of Systems Constitutional: Negative. Negative for fever. HENT: Positive for dental problem and facial swelling. Negative for congestion, drooling and mouth sores. Eyes: Negative. Respiratory: Negative. Breasts: Negative. Cardiovascular: Negative. Negative for chest pain. Gastrointestinal: Negative. Genitourinary: Negative. Musculoskeletal: Negative. Negative for neck pain. Skin: Negative. Neurological: Negative. Negative for headaches. Psychiatric/Behavioral: Negative. All other systems reviewed and are negative.Endocrine: Endocrine negativeNegative for goiter. Physical Exam: ED Triage Vitals [05/01/23 0348] Weight 73.5 kg (162 lb) Actual or estimated Actual Height 1.753 m (5' 9") BP (!) 136/93 Pulse 70 Resp 18 Temp 36.8 ?C (98.2 ?F) Temp source Oral SpO2 98 % Measured on Room air Physical ExamVitals and nursing note reviewed. Constitutional: General: He is not in acute distress. Appearance: Normal appearance. He is well-developed and normal weight. He is not ill-appearing, toxic-appearing or diaphoretic. HENT: Head: Normocephalic and atraumatic. Mouth/Throat: Mouth: Mucous membranes are moist. Pharynx: Oropharynx is clear. Comments: Dental cariesPoor Oral hygieneDiffuse dental decayEyes: General: No scleral icterus. Right eye: No discharge. Left eye: No discharge. Conjunctiva/sclera: Conjunctivae normal. Pupils: Pupils are equal, round, and reactive to light. Cardiovascular: Rate and Rhythm: Normal rate and regular rhythm. Pulses: Normal pulses. Heart sounds: Normal heart sounds. No murmur heard.Pulmonary: Effort: Pulmonary effort is normal. No respiratory distress. Breath sounds: Normal breath sounds. No stridor. No wheezing, rhonchi or rales. Chest: Chest wall: No tenderness. Abdominal: General: Bowel sounds are normal. There is no distension. Palpations: Abdomen is soft. Tenderness: There is no abdominal tenderness. There is no right CVA tenderness, left CVA tenderness, guarding or rebound. Musculoskeletal: General: No tenderness. Normal range of motion. Cervical back: Normal range of motion and neck supple. No rigidity or tenderness. Lymphadenopathy: Cervical: No cervical adenopathy. Skin: General: Skin is warm and dry. Capillary Refill: Capillary refill takes less than 2 seconds. Coloration: Skin is pale. Skin is not jaundiced. Findings: No bruising, erythema, lesion or rash. Neurological: General: No focal deficit present. Mental Status: He is alert and oriented to person, place, and time. Cranial Nerves: No cranial nerve deficit. Sensory: No sensory deficit. Motor: No weakness. Coordination: Coordination normal. Gait: Gait normal. Deep Tendon Reflexes: Reflexes normal. Psychiatric: Behavior: Behavior normal. Thought Content: Thought content normal. Judgment: Judgment normal. Radiology:No orders to display Lab Results:Lab Results - No data to displayOrders and Treatments:No orders of the defined types were placed in this encounter.Orders Placed This Encounter Medications amoxicillin 500 mg capsule ibuprofen 800 mg tablet First Provider Eval:ED Events Date/Time Event User Comments 05/01/23350 Medical Screening Begins MILAGROS COURTNEY MD -- 05/01/23350 First Provider Evaluation MILAGROS COURTNEY MD -- ED COURSEDiagnosis/Impression as of 05/01/23 8929 Toothache Procedures: ProceduresMDM:Medical Decision MakingBruce Oswald is a 42 year old malew ho presents to the ED with toothache X 2 weeksProblems Addressed:Toothache: Details: Will initiate abx, NSAID and refer to Dentist of choiceAmount and/or Complexity of Data ReviewedExternal Data Reviewed: notes.RiskOTC drugs.Prescription drug management. Flowsheet Documentation: Scoring Tools: No data recorded Disposition/Condition:ED Disposition ED Disposition Disch - Home Condition Stable Comment -- Discharge Medications:Patient's Medications START taking these medications AMOXICILLIN 500 MG CAPSULE Take 1 capsule by mouth in the morning and 1 capsule at noon and 1 capsule in the evening. IBUPROFEN 800 MG TABLET Take 1 tablet by mouth every 6 (six) hours as needed for Pain (scale 4-6). CONTINUE taking these medications which have NOT CHANGED DICYCLOMINE 20 MG TABLET Take 1 tablet by mouth 4 (four) times daily. IBUPROFEN 600 MG TABLET Take 1 tablet by mouth every 6 (six) hours as needed for Pain (scale 4-6). LORATADINE 10 MG TABLET Take 1 tablet by mouth daily. ONDANSETRON 4 MG DISINTEGRATING TABLET Take 1 tablet by mouth every 4 (four) hours as needed for Nausea and Vomiting (N/V). ONDANSETRON 4 MG DISINTEGRATING TABLET Take 1 tablet by mouth every 8 (eight) hours as needed for Nausea and Vomiting (N/V). PANTOPRAZOLE (PROTONIX) 40 MG EC TABLET Take 1 tablet by mouth in the morning. PROMETHAZINE 25 MG TABLET Take 1 tablet by mouth every 6 (six) hours as needed for Nausea and Vomiting (N/V) or N/V unresponsive to Ondansetron. TRAMADOL 50 MG TABLET Take 1 tablet by mouth every 6 (six) hours as needed for Pain (scale 7-10). Indications: acute pain START taking Modified Medications as Prescribed No medications on file STOP taking these medications No medications on file Follow-up:Electronically signed by: Milagros Courtney MD05/01/23 0558 Milagros Courtney MD05/01/23 0558 [id number] Emergency department [id number] Emergency department [id number] for patient [address] [id number] [facility]
[2023-09-16] MEDS ORDERED: NA CHLORIDE 0.9% 1,000 ML ONE (17:41)
[2023-09-16 17:43] LABS: Absolute Lymphocytes (CBC) 4.1 K/uL (0.7-4.9); Hematocrit 42.5 % (39.6-49.0); Lymphocytes % 58.7 % (15.3-44.8); MCV 96.4 fL (80-100); MPV 8.8 fL (7.6-11.3); Platelets 154 thou/uL (152-406); RBC Red Blood Cell Count 4.41 M/uL (4.33-5.43)
[2023-09-16] MEDS ORDERED: LORazepam 2 MG/ML VIAL ONE (17:59)
[2023-09-16 18:24] LABS: White Blood Cell Scan OK (OK)
[2023-09-16 18:32] LABS: Blood Morphology Comment NOT SEEN (NOT SEEN); Platelet Estimate ADEQ
[2023-09-16 18:33] LABS: Protime INR 1.01
[2023-09-16 18:34] LABS: Toxic Granulation 1+
[2023-09-16 18:46] LABS: ALT/SGPT 37 U/L (16-61); AST/SGOT 23 U/L (15-37); Alkaline Phosphatase 71 U/L (45-117); BUN Blood Urea Nitrogen 11 mg/dL (7-18); Bicarbonate 27 mEq/L (21-32); Bilirubin Total 0.2 mg/dL (0.2-1.0); Glomerular Filtration Rate 105 ml/min (=/>90); Glucose Level 88 mg/dL (74-106); Magnesium 1.8 mg/dL (1.6-2.4); NT PRO-BNP 117 pg/mL (<125); Potassium 3.3 mEq/L (3.5-5.1); Protein, Total 6.2 g/dL (6.4-8.2); Sodium Level 143 mEq/L (136-145); Troponin High Sensitivity 16.9 pg/mL (<58.9)
--- NOTE | 2023-09-16 18:46 | RAD REPORT ---
EXAM DESCRIPTION: RAD - Chest Single View - 09/16/2023 6:27 pm CLINICAL HISTORY: CHEST PAIN Chest pain. COMPARISON: <Comparisons> FINDINGS: Portable technique limits examination quality. The lungs are grossly clear. The heart is normal in size. No displaced fractures. IMPRESSION: No acute intrathoracic process suspected.
[2023-09-16 18:52] LABS: Bilirubin Direct < 0.1 mg/dL (0-0.2); Bilirubin Indirect, Calculated ND mg/dL (0.2-0.8)
[2023-09-16] MEDS ORDERED: POTASSIUM 25 MEQ EFFERV TAB ONE (20:25)
--- NOTE | 2023-09-16 23:41 | ER ---
Nurse's Notes [facility] Name: Bruce Oswald Age: 43 yrs Sex: Male : 1980 Arrival Date: 09/16/2023 Time: 17:11 Bed 6 Private MD: Diagnosis: Chest pain, unspecified;Hypertensive heart disease without heart failure Presentation: 09/16 17:16 Chief complaint: EMS states: Pt was pulled over by the police, narcotics were found in rs5 pt's pocket, pt dropped to the floor and started complaining of chest pain and anxiety when asked to step out of vehicle. Coronavirus screen: At this time, the client does not indicate any symptoms associated with coronavirus-19. Ebola Screen: No symptoms or risks identified at this time. Initial Sepsis Screen: Does the patient meet any 2 criteria? No. Patient's initial sepsis screen is negative. Does the patient have a suspected source of infection? No. Patient's initial sepsis screen is negative. Risk Assessment: Do you want to hurt yourself or someone else? Patient reports no desire to harm self or others. Onset of symptoms was September 16, 2023. Care prior to arrival: Medication(s) given: ASA, 81 mg, x 3, IV initiated. 20 GA, in the left antecubital area. 17:16 Method Of Arrival: EMS: [facility] rs5 17:16 Acuity: ZENON 3 rs5 Historical: - Allergies: 17:18 NKDA; rs5 - PMHx: 17:18 Asthma; Back pain; Hypertension; rs5 - PSHx: 17:18 None; rs5 - Immunization history:: Adult Immunizations unknown. - Social history:: Smoking status: Patient denies any tobacco usage or history of. Screenin:15 [facility] ED Fall Risk Assessment (Adult) History of falling in the last 3 months, rs5 including since admission No falls in past 3 months (0 pts) Confusion or Disorientation No (0 pts) Intoxicated or Sedated No (0 pts) Impaired Gait No (0 pts) Mobility Assist Device Used No (0 pt) Altered Elimination No (0 pt) Score/Fall Risk Level 0 - 2 = Low Risk Oriented to surroundings, Maintained a safe environment. Abuse screen: Denies threats or abuse. Nutritional screening: No deficits noted. Tuberculosis screening: No symptoms or risk factors identified. Assessment: 17:20 General: Appears in no apparent distress. uncomfortable, Behavior is cooperative, rs5 anxious. Pain: Complains of pain in chest Pain does not radiate. Pain currently is 4 out of 10 on a pain scale. Quality of pain is described as pressure, Pain began 3 hours ago. Is intermittent. Neuro: Level of Consciousness is awake, alert, obeys commands, Oriented to person, place, time, situation. Cardiovascular: Heart tones S1 S2 present Rhythm is regular. Respiratory: Airway is patent Respiratory effort is even, unlabored, Respiratory pattern is regular, symmetrical, Breath sounds are clear bilaterally. GI: Abdomen is flat, non-distended, Bowel sounds present X 4 quads. Abd is soft and non tender X 4 quads. : No signs and/or symptoms were reported regarding the genitourinary system. EENT: No signs and/or symptoms were reported regarding the EENT system. Derm: Skin is intact, Skin is dry, Skin is normal, Skin temperature is warm. Musculoskeletal: Range of motion: intact in all extremities. 18:30 Reassessment: Patient and/or family updated on plan of care and expected duration. Pain rs5 level reassessed. Patient is alert, oriented x 3, equal unlabored respirations, skin warm/dry/pink. Patient denies pain at this time. Patient states feeling better. 18:57 Reassessment: No changes from previously documented assessment. rs5 19:00 Reassessment: No changes from previously documented assessment. Patient and/or family vc1 updated on plan of care and expected duration. Pain level reassessed. Patient is alert, oriented x 3, equal unlabored respirations, skin warm/dry/pink. 20:00 Reassessment: No changes from previously documented assessment. Patient and/or family vc1 updated on plan of care and expected duration. Pain level reassessed. Patient is alert, oriented x 3, equal unlabored respirations, skin warm/dry/pink. 21:00 Reassessment: No changes from previously documented assessment. Patient and/or family vc1 updated on plan of care and expected duration. Pain level reassessed. Patient is alert, oriented x 3, equal unlabored respirations, skin warm/dry/pink. Vital Signs: 17:16 BP 151 / 90; Pulse 80; Resp 17; Temp 98.4(O); Pulse Ox 99% ; rs5 18:40 BP 137 / 106; Pulse 84; Resp 16; Pulse Ox 99% ; ko1 19:30 BP 124 / 66; Pulse 78; Resp 16; Pulse Ox 98% ; vc1 20:00 BP 131 / 88; Pulse 84; Resp 15; Pulse Ox 97% ; vc1 21:00 BP 134 / 103; Pulse 81; Resp 16; Pulse Ox 100% ; vc1 22:00 BP 153 / 98; Pulse 76; Resp 16; Pulse Ox 97% ; vc1 ED Course: 17:14 Patient arrived in ED. eb 17:15 Geo Cortes PA is PHCP. cp 17:15 Fransisco Ferrara DO is Attending Physician. cp 17:15 Patient has correct armband on for positive identification. Fall risk band placed. rs5 Placed in gown. Bed in low position. Call light in reach. Side rails up X2. 17:16 Nehemias Reynoso, RN is Primary Nurse. rs5 17:18 Triage completed. rs5 17:28 Basic Metabolic Panel Sent. ko1 17:28 CBC with Diff Sent. ko1 17:28 LFT's Sent. ko1 17:28 Magnesium Sent. ko1 17:28 NT PRO-BNP Sent. ko1 17:28 PT-INR Sent. ko1 17:28 Troponin HS Sent. ko1 18:29 XRAY Chest (1 view) In Process Unspecified. EDMS 18:58 No provider procedures requiring assistance completed. rs5 09/17 00:15 IV discontinued, intact, bleeding controlled, No redness/swelling at site. Pressure pf1 dressing applied. Administered Medications: 09/16 17:16 CANCELLED (Physician Discretion): ativan1 mg IVP once cp 17:20 Drug: NS 0.9% IV 1000 ml IV at 1 bolus Per protocol; 1000 mL bolus Route: IV; Rate: 1 rs5 bolus; Site: left antecubital; 17:50 Drug: Ativan IVP 1 mg IVP once Route: IVP; Site: left antecubital; rs5 20:15 Drug: Potassium PO Effervescent Tablet 50 mEq PO once; dissolve in 4 ounces of water or vc1 juice Route: PO; Medication: 18:58 VIS not applicable for this client. rs5 Outcome: 23:40 Discharge ordered by . cp 09/17 00:15 Discharged to home ambulatory, pf1 Condition: improved Discharge instructions given to patient, Instructed on discharge instructions, follow up and referral plans. Demonstrated understanding of instructions, follow-up care, medications, Prescriptions given X 1, 00:15 Patient left the ED. pf1 Signatures: Dispatcher [employer] EDMS Geo Cortes PA PA cp Botello, Elizabeth eb Calcote, Vanessa RN RN vc1 Janna Laguna RN RN ko1 Yancy Jimenez RN RN pf1 Nehemias Reynoso RN RN rs5
--- NOTE | 2023-09-16 23:41 | EDPHYS ---
Physician Documentation [facility] Name: Bruce Oswald Age: 43 yrs Sex: Male : 1980 Arrival Date: 09/16/2023 Time: 17:11 Bed 6 Private MD: ED Physician Fransisco Ferrara HPI: 09/16 17:20 This 43 yrs old Black Male presents to ER via EMS with complaints of Chest Pain. cp 17:20 The patient or guardian reports chest pain that is located primarily in the anterior cp chest wall, left. Onset: just prior to arrival. The pain does not radiate. 17:20 Associated signs and symptoms: Pertinent negatives: abdominal pain, cough, diaphoresis, cp lower extremity pain, lower extremity swelling, syncope. 17:20 The chest pain is described as a pressure. cp 17:20 Duration: The patient or guardian reports a single episode, that is still ongoing, and cp unchanged. Historical: - Allergies: 17:18 NKDA; rs5 - PMHx: 17:18 Asthma; Back pain; Hypertension; rs5 - PSHx: 17:18 None; rs5 - Immunization history:: Adult Immunizations unknown. - Social history:: Smoking status: Patient denies any tobacco usage or history of. ROS: 17:25 Cardiovascular: Positive for chest pain, of the left side of chest, Negative for edema, cp palpitations, 17:25 Constitutional: Negative for body aches, chills, fever, cp 17:25 Respiratory: Negative for cough, shortness of breath, wheezing, 17:25 Abdomen/GI: Negative for abdominal pain, vomiting, diarrhea, constipation, Exam: 17:33 Constitutional: The patient appears in no acute distress, alert, awake, cp non-diaphoretic, non-toxic, well developed, well nourished, anxious, uncomfortable, 17:33 Head/Face: Normocephalic, atraumatic. cp 17:33 Eyes: Periorbital structures: appear normal, Pupils: equal, round, and reactive to light and accomodation, Extraocular movements: intact throughout, Conjunctiva: normal, no exudate, no injection, Sclera: no appreciated abnormality, Lids and lashes: appear normal, bilaterally, 17:33 ENT: External ear(s): are unremarkable, Nose: is normal, Mouth: Lips: moist, Oral mucosa: pink and intact, moist, Posterior pharynx: is normal, airway is patent, no erythema, no exudate, 17:33 Neck: ROM/movement: is normal, is supple, without pain, no range of motions cp limitations, 17:33 Chest/axilla: Inspection: normal, Palpation: is normal, no crepitus, no tenderness, 17:33 Cardiovascular: Rate: normal, Rhythm: regular, Edema: is not appreciated, JVD: is not appreciated, 17:33 Respiratory: the patient does not display signs of respiratory distress, Respirations: normal, no use of accessory muscles, no retractions, labored breathing, is not present, Breath sounds: are clear throughout, no decreased breath sounds, no stridor, no wheezing, 17:33 Abdomen/GI: Inspection: abdomen appears normal, Palpation: abdomen is soft and non-tender, in all quadrants, 17:33 Back: pain, is absent, ROM is normal, 17:33 Neuro: Orientation: to person, place \T\ time. Mentation: is normal, Motor: moves all fours, strength is normal, Sensation: is normal, 17:35 ECG was reviewed by the Attending Physician. 22:28 ECG was reviewed by the Attending Physician. Vital Signs: 17:16 BP 151 / 90; Pulse 80; Resp 17; Temp 98.4(O); Pulse Ox 99% ; rs5 18:40 BP 137 / 106; Pulse 84; Resp 16; Pulse Ox 99% ; ko1 19:30 BP 124 / 66; Pulse 78; Resp 16; Pulse Ox 98% ; vc1 20:00 BP 131 / 88; Pulse 84; Resp 15; Pulse Ox 97% ; vc1 21:00 BP 134 / 103; Pulse 81; Resp 16; Pulse Ox 100% ; vc1 22:00 BP 153 / 98; Pulse 76; Resp 16; Pulse Ox 97% ; vc1 MDM: 17:16 Patient medically screened. cp 17:38 The patient was not given aspirin in the Emergency Department. Administered by EMS. ED cp course: EKG reviewed by attending physician DR Ferrara. 23:40 Data reviewed: vital signs, nurses notes, lab test result(s), EKG, radiologic studies, cp plain films. 23:40 I considered the following discharge prescriptions or medication management in the emergency department Medications were administered in the Emergency Department. See MAR. Independent interpretation of the following test(s) in the Emergency Department EKG: See my EKG interpretation above. Counseling: I had a detailed discussion with the patient and/or guardian regarding the historical points, exam findings, and any diagnostic results supporting the discharge/admit diagnosis, lab results, radiology results, the need for outpatient follow up, a family practitioner, to return to the emergency department if symptoms worsen or persist or if there are any questions or concerns that arise at home. 09/16 17:16 Order name: Basic Metabolic Panel; Complete Time: 19:53 10 19:53 Interpretation: Normal except: K 3.3; CL 114; CA 8.4. 09/16 17:16 Order name: CBC with Diff; Complete Time: 18:52 09/16 18:52 Interpretation: Normal except: CLAUDIA% 28.5; LYM% 58.7. 09/16 17:16 Order name: LFT's; Complete Time: 19:53 09/16 19:54 Interpretation: Normal except: TP 6.2; ALB 3.0; A/G 0.9. 09/16 17:16 Order name: Magnesium; Complete Time: 19:53 10 17:16 Order name: NT PRO-BNP; Complete Time: 19:53 10 17:16 Order name: PT-INR; Complete Time: 18:52 cp 10 17:16 Order name: Troponin HS; Complete Time: 19:53 1210 19:54 Interpretation: Reviewed. 09/16 17:47 Order name: CBC Smear Scan; Complete Time: 18:52 EDMS 09/16 18:26 Order name: Manual Differential; Complete Time: 18:52 EDMS 10 18:52 Interpretation: Normal except: SEGS 30. 10 20:46 Order name: Troponin HS; Complete Time: 23:39 cp 10 17:16 Order name: XRAY Chest (1 view); Complete Time: 18:52 cp 10 17:16 Order name: EKG; Complete Time: 17:17 cp 10 17:16 Order name: Cardiac monitoring; Complete Time: 17:24 cp 10 17:16 Order name: EKG - Nurse/Tech; Complete Time: 17:28 cp 12/10 17:16 Order name: IV Saline Lock; Complete Time: 17:25 cp 09/16 17:16 Order name: Labs collected and sent; Complete Time: 17:28 cp 09/16 17:16 Order name: O2 Per Protocol; Complete Time: 17:24 cp 09/16 17:16 Order name: O2 Sat Monitoring; Complete Time: 17:24 cp 09/16 17:49 Order name: Labs - recollect needed: recollect light green and blue per Alize; Complete eb Time: 18:09/16 20:46 Order name: EKG - Nurse/Tech; Complete Time: 22:14 cp EC:35 Rate is 85 beats/min. Rhythm is regular. AL interval is normal. QRS interval is normal. cp QT interval is normal. T waves are Inverted in lead aVR. Interpreted by me. Reviewed by me. 22:28 Rate is 68 beats/min. Rhythm is regular. AL interval is normal. QRS interval is normal. cp QT interval is normal. T waves are Inverted in lead aVR. Interpreted by me. Reviewed by me. Administered Medications: 17:16 CANCELLED (Physician Discretion): ativan1 mg IVP once cp 17:20 Drug: NS 0.9% IV 1000 ml IV at 1 bolus Per protocol; 1000 mL bolus Route: IV; Rate: 1 rs5 bolus; Site: left antecubital; 17:50 Drug: Ativan IVP 1 mg IVP once Route: IVP; Site: left antecubital; rs5 20:15 Drug: Potassium PO Effervescent Tablet 50 mEq PO once; dissolve in 4 ounces of water or vc1 juice Route: PO; Disposition: 19:13 I was immediately available on-site in the Emergency Department for consultation in the ms3 care of the patient. Disposition Summary: 09/16/23 23:40 Discharge Ordered Notes: Location: Home cp Problem: new cp Symptoms: have improved cp Condition: Stable cp Diagnosis - Chest pain, unspecified cp - Hypertensive heart disease without heart failure cp Followup: cp - With: Private Physician - When: 2 - 3 days - Reason: Recheck today's complaints Discharge Instructions: - Discharge Summary Sheet cp - Nonspecific Chest Pain, Adult cp - Hypertension, Adult cp - Aspirin and Your Heart cp - Managing Anxiety, Adult cp Forms: - Medication Reconciliation Form cp - Thank You Letter cp - Antibiotic Education cp - Prescription Opioid Use cp - Patient Portal Instructions cp - Leadership Thank You Letter cp Prescriptions: - Ibuprofen 800 mg Oral Tablet - take 1 tablet ORAL route every 8 hours As needed take with food; 30 tablet; cp Refills: 0, Product Selection Permitted Signatures: Dispatcher [employer] EDMS Geo Cortes PA PA cp Lori Romano Marcus, DO DO ms3 Brianna Sol RN RN vc1 Nehemias Reynoso RN RN rs5 Corrections: (The following items were deleted from the chart) 17:16 17:16 Ativan IVP 1 mg IVP once ordered. cp cp
[2023-09-17 00:20] VITALS: TEMP 98.4
[2023-09-17 00:23] VITALS: O2SAT 97
[2023-09-17 00:27] VITALS: BP 153/98
--- NOTE | 2023-09-18 13:47 | EKG ---
Test Date: 2023-09-16 Test Time: 22:22:58 Steel Melter: LUCAS MEASUREMENT RESULTS: Intervals: Rate: 68 [place]: 150 QRSD: 86 QT: 372 QTc: 395 [place]: P: 55 [place]: 150 QRS: 73 T: 48 INTERPRETIVE STATEMENTS: Normal sinus rhythm Normal ECG Compared to ECG 09/16/2023 17:28:27 Left ventricular hypertrophy no longer present Electronically Signed On 09-18-23 13:41:09 WRESTLING COACH by Jhon Mcgarry
--- NOTE | 2023-09-18 13:48 | EKG ---
Test Date: 2023-09-16 Test Time: 17:28:27 Knock Out Hand: AUGIE MEASUREMENT RESULTS: Intervals: Rate: 85 [place]: 148 QRSD: 80 QT: 364 QTc: 433 [place]: P: 68 [place]: 148 QRS: 76 T: 33 INTERPRETIVE STATEMENTS: Normal sinus rhythm Voltage criteria for left ventricular hypertrophy Abnormal ECG Compared to ECG 02/19/2021 08:02:15 T-wave abnormality no longer present Electronically Signed On 09-18-23 13:41:25 DIRECTOR OF CORPORATE SALES by Jhon Mcgarry
== END 2023-09-17 00:15 | disposition home or self-care (01) ==
LOC: ER 17:11
DX: I11.9 Hypertensive heart disease without heart failure (principal); I10 Essential (primary) hypertension
CPT/HCPCS: 93005 ×2; 85025; 80048; 36415; 83735; 85610; 80076; 84484 ×2; 83880; 71045; 96374; 99284; J7030

== ENCOUNTER 2023-09-18 21:18 | Emergency (ER) | payer OTHER ==
--- OUTSIDE RECORDS SUMMARY | 2023-09-18 21:23 | XMS REPORT | Continuity of Care Document ---
Author Name Unknown Address [address] [place] [address] [facility] thconnect Address [address] [place] [address] Care Team Providers Care Incoming Freight Clerk Name Role Phone PCP, PATIENT DOES NOT HAVE A Primary Care Physic nadiya Unavailable OSITO HILLMAN Attending Clinician Unavailable Osito Hillman MD Attending Clinician [phone] Jcarlos Mora Attending Clinician Unavailable MILAGROS COURTNEY Attending Clinician Unavailable Milagros Courtney MD Attending Clinician + [phone] RAMIRO TIPTON Attending Clinician Unavailable Ramiro Steiner S Attending Clinician [phone] YANCY CRUMP Attending Clinician Unavailable Yancy Crump NP Attending Clinician + [phone] MURTAZA RAMIREZ Attending Clinician Unavailable Emily Watt MD Attending Clinician [phone] Murtaza Ramirez DO Attending Clinician [phone] HARSHAD LOWE Attending Clinician Unavailable Harshad Morales Attending Clinician [phone] KENIA ALCALA Attending Clinician Unavailab Kenia Santos DO Attending Clinician [phone] SMILEY WELCH Attending Clinician Unavailable Smiley Welch MD Attending Clinician [phone] Deepak Weber MD Attending Clinician [phone] Sarah Ramos Attending Clinician [phone] Paulino ROSALES, Mike Attending Clinician [phone] OSITO HILLMAN Admitting Clinician Unavailable Physician, No Primary or Family Admitting Clinic nadiya Unavailable EMILY WATT Admitting Clinician Unavailab HARSHAD Arzola Admitting Clinician Unavailable Deepak Weber MD Admitting Clinician [phone] Mike Bob MD Admitting Clinician [phone] Payers Payer Name Policy Type Policy Number Effective Date Expirati on Date Source VIV[employer] [id number] 2023 00:00:00 MEDICAID SSI PENDING PENDING 2023 00:00:00 2023 00:00:00 Problems Condition Name Condition Details Condition Category Status Onset Date Resolution Date Last Treatment Date Treating Clinician Comments Source Intractabl e vomiting with nausea Intractabl e vomiting with nausea Disease Active 04-17 00:00: 00 [facility] Essential hypertensi on Essential hypertensi on Disease Active 04-17 00:00: 00 [facility] Troponin I above reference range Troponin I above reference range Disease Active 04-17 00:00: 00 [facility] CAESAR (acute kidney injury) CAESAR (acute kidney injury) Disease Active 04-08 00:00: 00 [facility] Allergies, Adverse Reactions, Alerts Allergy Name Allergy Type Status Severity Reaction(s) Onset Date Inactive Date Treating Clinician Comments Source No Known Allergie s DA Active U 06-14 00:00: 00 [facility] NO KNOWN ALLERGIE S Drug Class Active [facility] Social History Social Habit Start Date Stop Date Quantity Comments Source History of tobacco use Smokes tobacco daily [facility] History of Social function 2023-06-16 00:00:00 2023-06-16 00:00:00 [facility] Exposure to SARS-CoV-2 (event) 2023-01-30 00:00:00 2023-02-09 20:59:00 Not sure [facility] Tobacco use and exposure 2020-04-08 00:00:00 2020-04-08 00:00:00 Smokeless tobacco non-user [facility] Sex Assigned At 1980 00:00:00 1980 00:00:00 [facility] Smoking Status Start Date Stop Date Source Smokes tobacco daily 2020-04-08 00:00:00 [facility] Medications Ordered Medication Name Filled Medication Name Start Date Stop Date Current Medication? Ordering Clinician Indication Dosage Frequency Signature (SIG) Comments Components Source ibuprofen (IBU) tablet 600 mg 06-16 18:30: 00 06-16 18:40 :00 No 600mg 600 mg, Oral, ONCE, 1 dose, [facility]30[facility] acetaminoph [facility] (TY[facility]OL) tablet 650 mg 06-16 17:45: 00 06-16 17:47 :00 No 650mg 650 mg, Oral, ONCE, 1 dose, On 06/16/23 at 1245, [facility] cloNIDine (CATAPRES) tablet 0.1 mg 06-16 17:45: 00 06-16 17:48 :00 No .1mg 0.1 mg, Oral, ONCE, 1 dose, On 06/16/23 at 1245, STAT [facility] iopamidol (ISOVUE 370-500 mL) injection 90 mL 06-16 14:20: 00 06-16 14:45 :00 No [id number] 90mL 90 mL, Intravenou s, ONCE, 1 dose, On 06/16/23 at 0945, Routine [facility] haloperidol lactate (HALDOL) injection 2.5 mg 06-16 14:15: 00 06-16 14:17 :00 No 2.5mg 2.5 mg, Intravenou s, ONCE, 1 dose, On 06/16/23 at 0915, STAT [facility] NaCl 0.9% (NS) bolus infusion 1,000 mL 06-16 13:45: 00 06-16 17:38 :00 No 1000mL at 999 mL/hr, 1,000 mL, IV Infusion, ONCE, 1 dose, On 06/16/23 at 0845, JUNE [facility] amoxicillin 500 mg capsule 05-01 00:00: 00 Yes [id number] 500mg Take 1 capsule by mouth in the morning and 1 capsule at noon and 1 capsule in the evening. [facility] ibuprofen 800 mg tablet 05-01 00:00: 00 Yes [id number] 800mg Take 1 tablet by mouth every 6 (six) hours as needed for Pain (scale 4-6). [facility] amoxicillin 500 mg capsule 05-01 00:00: 00 Yes [id number] 500mg Take 1 capsule by mouth in the morning and 1 capsule at noon and 1 capsule in the evening. [facility] ibuprofen 800 mg tablet 05-01 00:00: 00 Yes [id number] 800mg Take 1 tablet by mouth every 6 (six) hours as needed for Pain (scale 4-6). [facility] traMADoL (ULTRAM) tablet 50 mg 03-22 08:30: 00 03-22 07:33 :00 No 50mg 50 mg, Oral, ONCE, 1 dose, On Erika 03/22/23 at 0330, Routine [facility] clindamycin (CLEOCIN HCL) capsule 450 mg 03-22 08:30: 00 03-22 07:34 :00 No 450mg 450 mg, Oral, ONCE, 1 dose, On Erika 03/22/23 at 0330, JUNE
Re ason for Anti-Infec tive: Documented Infection< br>Documen nakita Infection Site: HEENT
D uration of Therapy: Other (see Comments)< br>Restric nakita use approved by: ED PROVIDER [facility] ibuprofen (IBU) tablet 600 mg 03-22 07:30: 00 03-22 07:34 :00 No 600mg 600 mg, Oral, ONCE, 1 dose, On Erika 03/22/23 at 0230, JUNE [facility] traMADoL 50 mg tablet 03-22 00:00: 00 Yes [id number] 50mg Take 1 tablet by mouth every 6 (six) hours as needed for Pain (scale 7-10). Indication s: acute pain [facility] ibuprofen 600 mg tablet 03-22 00:00: 00 Yes [id number] 600mg Take 1 tablet by mouth every 6 (six) hours as needed for Pain (scale 4-6). [facility] traMADoL 50 mg tablet 03-22 00:00: 00 Yes [id number] 50mg Take 1 tablet by mouth every 6 (six) hours as needed for Pain (scale 7-10). Indication s: acute pain [facility] ibuprofen 600 mg tablet 03-22 00:00: 00 Yes [id number] 600mg Take 1 tablet by mouth every 6 (six) hours as needed for Pain (scale 4-6). [facility] traMADoL 50 mg tablet 03-22 00:00: 00 Yes [id number] 50mg Take 1 tablet by mouth every 6 (six) hours as needed for Pain (scale 7-10). Indication s: acute pain [facility] ibuprofen 600 mg tablet 03-22 00:00: 00 Yes [id number] 600mg Take 1 tablet by mouth every 6 (six) hours as needed for Pain (scale 4-6). [facility] clindamycin 150 mg capsule 03-22 00:00: 00 04-02 04:59 :00 No [id number] 450mg Take 3 capsules by mouth in the morning and 3 capsules at noon and 3 capsules in the evening. Do all this for 10 days. [facility] maalox:diph enhydrAMINE :lidocaine 2 % viscous 1:1:1 ([facility]) oral suspension 15 mL 02-10 03:15: 00 02-10 03:17 :00 No 15mL 15 mL, Oral, ONCE, 1 dose, On Sun02/09/23 at 2215, Routine [facility] cloNIDine (CATAPRES) tablet 0.1 mg 02-10 02:15: 00 02-10 02:15 :00 No .1mg 0.1 mg, Oral, ONCE, 1 dose, On Sun02/09/23 at 2115, STAT [facility] dicyclomine (BENTYL) injection 20 mg 02-10 02:00: 00 02-10 00:59 :00 No 20mg 20 mg, Intramuscu lar, ONCE, 1 dose, On Sun02/09/23 at 2100, Routine [facility] NaCl 0.9% (NS) IV infusion 1,000 mL 02-10 01:00: 00 Yes 1000mL at 999 mL/hr, Intravenou s, CONTINUOUS , Starting on Sun02/09/23 at 2000, Until Discontinu ed, JUNE [facility] haloperidol lactate (HALDOL) injection 2.5 mg 02-10 00:00: 00 02-10 00:59 :00 No 2.5mg 2.5 mg, Slow IV Push, ONCE, 1 dose, On Sun02/09/23 at 1900, STAT [facility] proMETHazin e 25 mg tablet 02-09 00:00: 00 Yes [id number] 25mg Take 1 tablet by mouth every 6 (six) hours as needed for Nausea and Vomiting (N/V) or N/V unresponsi ve to Ondansetro n. [facility] proMETHazin e 25 mg tablet 02-09 00:00: 00 Yes [id number] 25mg Take 1 tablet by mouth every 6 (six) hours as needed for Nausea and Vomiting (N/V) or N/V unresponsi ve to Ondansetro n. [facility] proMETHazin e 25 mg tablet 02-09 00:00: 00 Yes [id number] 25mg Take 1 tablet by mouth every 6 (six) hours as needed for Nausea and Vomiting (N/V) or N/V unresponsi ve to Ondansetro n. [facility] proMETHazin e 25 mg tablet 02-09 00:00: 00 Yes [id number] 25mg Take 1 tablet by mouth every 6 (six) hours as needed for Nausea and Vomiting (N/V) or N/V unresponsi ve to Ondansetro n. [facility] losartan 50 mg tablet 02-09 00:00: 00 03-12 04:59 :00 No [id number] 50mg Take 1 tablet by mouth in the morning for 30 days. [facility] pantoprazol e (PROTONIX) 80 mg in NaCl 0.9% (NS) 20 mL syringe 02-08 13:00: 00 02-08 12:04 :00 No 80mg 80 mg, IV Push, ONCE, 1 dose, On Erika 02/08/23 at 0800, Administer over 2 Minutes, 20 mL [facility] dicyclomine (BENTYL) tablet 20 mg 02-08 12:00: 00 02-08 12:01 :00 No 20mg 20 mg, Oral, ONCE, 1 dose, On Erika 02/08/23 at 0700, [facility] NaCl 0.9% (NS) bolus infusion 1,000 mL 02-08 12:00: 00 02-08 12:10 :00 No 1000mL at 999 mL/hr, 1,000 mL, IV Infusion, ONCE, 1 dose, On Erika 02/08/23 at 0700, [facility] ondansetron (ZOFRAN (PF)) injection 4 mg 02-08 08:45: 00 02-08 08:41 :00 No 4mg 4 mg, Slow IV Push, ONCE, 1 dose, On Erika 02/08/23 at 0345, [facility] pantoprazol e (PROTONIX) EC tablet 40 mg 08 04:45: 00 01-13 04:49 :00 No 40mg 40 mg, Oral, ONCE, 1 dose, On Sun01/12/23 at 2345, JUNE [facility] iopamidol (ISOVUE 370-500 mL) injection 100 mL 01-13 04:15: 00 01-13 04:15 :00 No [id number] 100mL 100 mL, Intravenou s, ONCE, 1 dose, On Sun01/12/23 at 2315, Routine [facility] NaCl 0.9% (NS) bolus infusion 1,000 mL 01-13 03:15: 00 01-13 04:42 :00 No 1000mL at 999 mL/hr, 1,000 mL, IV Infusion, ONCE, 1 dose, On Sun01/12/23 at 2215, JUNE [facility] ondansetron 4 mg disintegrat ing tablet 01-13 00:00: 00 Yes [id number] 4mg Take 1 tablet by mouth every 8 (eight) hours as needed for Nausea and Vomiting (N/V). [facility] pantoprazol e (PROTONIX) 40 mg EC tablet 01-13 00:00: 00 Yes [id number] 40mg Take 1 tablet by mouth in the morning. [facility] ondansetron 4 mg disintegrat ing tablet 01-13 00:00: 00 Yes [id number] 4mg Take 1 tablet by mouth every 8 (eight) hours as needed for Nausea and Vomiting (N/V). [facility] pantoprazol e (PROTONIX) 40 mg EC tablet 01-13 00:00: 00 Yes [id number] 40mg Take 1 tablet by mouth in the morning. [facility] ondansetron 4 mg disintegrat ing tablet 01-13 00:00: 00 Yes [id number] 4mg Take 1 tablet by mouth every 8 (eight) hours as needed for Nausea and Vomiting (N/V). [facility] pantoprazol e (PROTONIX) 40 mg EC tablet 01-13 00:00: 00 Yes [id number] 40mg Take 1 tablet by mouth in the morning. [facility] ondansetron 4 mg disintegrat ing tablet -08 00:00: 00 Yes [id number] 4mg Take 1 tablet by mouth every 8 (eight) hours as needed for Nausea and Vomiting (N/V). [facility] pantoprazol e (PROTONIX) 40 mg EC tablet -08 00:00: 00 Yes [id number] 40mg Take 1 tablet by mouth in the morning. [facility] ondansetron 4 mg disintegrat ing tablet 01-13 00:00: 00 Yes [id number] 4mg Take 1 tablet by mouth every 8 (eight) hours as needed for Nausea and Vomiting (N/V). [facility] pantoprazol e (PROTONIX) 40 mg EC tablet 01-13 00:00: 00 Yes [id number] 40mg Take 1 tablet by mouth in the morning. [facility] ondansetron 4 mg disintegrat ing tablet 01-13 00:00: 00 Yes [id number] 4mg Take 1 tablet by mouth every 8 (eight) hours as needed for Nausea and Vomiting (N/V). [facility] pantoprazol e (PROTONIX) 40 mg EC tablet 01-13 00:00: 00 Yes [id number] 40mg Take 1 tablet by mouth in the morning. [facility] dexamethaso ne (DECADRON PHOSPHATE) injection 10 mg 11-24 15:15: 00 11-24 14:09 :00 No 10mg 10 mg, Oral, ONCE, 1 dose, On [facility] 11/24/21 at 0915, STAT [facility] HYDROcodone -acetaminop hen (NORCO 5) 5-325 mg tablet 1 tablet 11-24 15:15: 00 11-24 14:08 :00 No 1{tbl} 1 tablet, Oral, ONCE, 1 dose, On Erika 11/24/21 at 0915, JUNE [facility] diazePAM (VALIUM) tablet 5 mg 11-24 15:15: 00 11-24 14:09 :00 No 5mg 5 mg, Oral, ONCE, 1 dose, On [facility] 11/24/21 at 0915, JUNE [facility] cyclobenzap rine 10 mg tablet -17 00:00: 00 Yes [id number] 10mg Take 1 tablet by mouth 3 (three) times daily as needed for Muscle Spasms. [facility] cyclobenzap rine 10 mg tablet -17 00:00: 00 Yes [id number] 10mg Take 1 tablet by mouth 3 (three) times daily as needed for Muscle Spasms. [facility] cyclobenzap rine 10 mg tablet 0 17 00:00: 00 Yes [id number] 10mg Take 1 tablet by mouth 3 (three) times daily as needed for Muscle Spasms. [facility] cyclobenzap rine 10 mg tablet 17 00:00: 00 Yes [id number] 10mg Take 1 tablet by mouth 3 (three) times daily as needed for Muscle Spasms. [facility] cyclobenzap rine 10 mg tablet 17 00:00: 00 03-22 00:00 :00 No [id number] 10mg Take 1 tablet by mouth 3 (three) times daily as needed for Muscle Spasms. [facility] ondansetron 4 mg disintegrat ing tablet 0 -16 00:00: 00 Yes [id number] 4mg Take 1 tablet by mouth every 4 (four) hours as needed for Nausea and Vomiting (N/V). [facility] dicyclomine 20 mg tablet 0 -16 00:00: 00 Yes [id number] 20mg Take 1 tablet by mouth 4 (four) times daily. [facility] loratadine 10 mg tablet 0 -16 00:00: 00 Yes [id number] 10mg Take 1 tablet by mouth daily. [facility] ondansetron 4 mg disintegrat ing tablet -16 00:00: 00 Yes [id number] 4mg Take 1 tablet by mouth every 4 (four) hours as needed for Nausea and Vomiting (N/V). [facility] dicyclomine 20 mg tablet 0 -16 00:00: 00 Yes [id number] 20mg Take 1 tablet by mouth 4 (four) times daily. [facility] loratadine 10 mg tablet 2021-0 -16 00:00: 00 Yes [id number] 10mg Take 1 tablet by mouth daily. [facility] ondansetron 4 mg disintegrat ing tablet 0 -16 00:00: 00 Yes [id number] 4mg Take 1 tablet by mouth every 4 (four) hours as needed for Nausea and Vomiting (N/V). [facility] dicyclomine 20 mg tablet 2021-0 -16 00:00: 00 Yes [id number] 20mg Take 1 tablet by mouth 4 (four) times daily. [facility] loratadine 10 mg tablet 0 16 00:00: 00 Yes [id number] 10mg Take 1 tablet by mouth daily. [facility] ondansetron 4 mg disintegrat ing tablet 0 -16 00:00: 00 Yes [id number] 4mg Take 1 tablet by mouth every 4 (four) hours as needed for Nausea and Vomiting (N/V). [facility] dicyclomine 20 mg tablet 2021-0 16 00:00: 00 Yes [id number] 20mg Take 1 tablet by mouth 4 (four) times daily. [facility] loratadine 10 mg tablet 0 -16 00:00: 00 Yes [id number] 10mg Take 1 tablet by mouth daily. [facility] ondansetron 4 mg disintegrat ing tablet 2021-0 -16 00:00: 00 Yes [id number] 4mg Take 1 tablet by mouth every 4 (four) hours as needed for Nausea and Vomiting (N/V). [facility] dicyclomine 20 mg tablet 2021-0 -16 00:00: 00 Yes [id number] 20mg Take 1 tablet by mouth 4 (four) times daily. [facility] loratadine 10 mg tablet 2021-0 -16 00:00: 00 Yes [id number] 10mg Take 1 tablet by mouth daily. [facility] ondansetron 4 mg disintegrat ing tablet 0 -16 00:00: 00 Yes [id number] 4mg Take 1 tablet by mouth every 4 (four) hours as needed for Nausea and Vomiting (N/V). [facility] dicyclomine 20 mg tablet 2021-0 -16 00:00: 00 Yes [id number] 20mg Take 1 tablet by mouth 4 (four) times daily. [facility] loratadine 10 mg tablet 0 -16 00:00: 00 Yes [id number] 10mg Take 1 tablet by mouth daily. [facility] ondansetron 4 mg disintegrat ing tablet 2021-0 -16 00:00: 00 Yes [id number] 4mg Take 1 tablet by mouth every 4 (four) hours as needed for Nausea and Vomiting (N/V). [facility] dicyclomine 20 mg tablet 2021-0 -16 00:00: 00 Yes [id number] 20mg Take 1 tablet by mouth 4 (four) times daily. [facility] loratadine 10 mg tablet 0 16 00:00: 00 Yes [id number] 10mg Take 1 tablet by mouth daily. [facility] ondansetron 4 mg disintegrat ing tablet 0 16 00:00: 00 Yes [id number] 4mg Take 1 tablet by mouth every 4 (four) hours as needed for Nausea and Vomiting (N/V). [facility] dicyclomine 20 mg tablet 0 -16 00:00: 00 Yes [id number] 20mg Take 1 tablet by mouth 4 (four) times daily. [facility] loratadine 10 mg tablet 0 16 00:00: 00 Yes [id number] 10mg Take 1 tablet by mouth daily. [facility] aspirin 81 mg chewable tablet 04-19 00:00: 00 05-20 04:59 :00 No [id number] 81mg Take 1 tablet by mouth daily for 30 days. [facility] aspirin chewable tablet 81 mg 04-18 14:00: 00 Yes 81mg 81 mg, Oral, DAILY, First dose on Sun04/18/20 at 0900, Until Discontinu ed, Routine [facility] carvediloL 3.125 mg tablet 04-18 00:00: 00 05-19 04:59 :00 No [id number] 3.125mg Take 1 tablet by mouth 2 (two) times daily with meals for 30 days. [facility] pantoprazol e 40 mg EC tablet 04-18 00:00: 00 05-19 04:59 :00 No [id number] 40mg Take 1 tablet by mouth daily for 30 days. [facility] carvediloL (COREG) tablet 3.125 mg 04-17 22:00: 00 Yes 3.125mg 3.125 mg, Oral, BID MEALS, First dose on 04/17/20 at 1700, Until Discontinu ed, Routine
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 Restricted medication : MEGADC [facility] atorvastati n (LIPITOR) tablet 40 mg 04-17 22:00: 00 Yes 40mg 40 mg, Oral, QPM, First dose on 04/17/20 at 1700, Until Discontinu ed, Routine [facility] heparin (porcine) injection 5,000 Units 04-17 19:00: 00 Yes 5000U 5,000 Units, Subcutaneo us, Q8H, First dose on 04/17/20 at 1400, Until Discontinu ed, Routine [facility] nicotine (NICODERM) 7 mg/24 hr patch 1 Patch 04-17 18:00: 00 Yes 1{patch } 1 Patch, Topical, Administer over 24 Hours, Q24H, First dose on 04/17/20 at 1300, Until Discontinu ed, Routine [facility] D5W 0.9% NaCl (NS) IV infusion 1,000 mL 04-17 17:00: 00 04-18 13:34 :21 No 1000mL at 100 mL/hr, 1,000 mL, IV Infusion, CONTINUOUS , Starting 04/17/20 at 1200, Until 04/18/20 at 0834, Routine [facility] LORazepam (ATIVAN) injection 0.5 mg 04-17 15:55: 35 Yes .5mg 0.5 mg, Slow IV Push, Q8HPRN, Starting 04/17/20 at 1055, Until Discontinu ed, Routine, Anxiety, Agitation [facility] nitroglycer in (NITROSTAT) sublingual tablet 0.4 mg 04-17 15:43: 20 Yes .4mg 0.4 mg, Sublingual , Q5MIN PRN, Starting 04/17/20 at 1043, Until Discontinu ed, Routine, Chest pain [facility] ondansetron (ZOFRAN (PF)) injection 4 mg 04-17 15:24: 53 Yes 4mg 4 mg, Slow IV Push, Q6HPRN, Starting 04/17/20 at 1024, Until Discontinu ed, Routine, Nausea and Vomiting (N/V) [facility] morpHINE injection 2 mg 04-17 15:24: 16 04-18 15:23 :16 No 2mg 2 mg, Slow IV Push, Q4HPRN, Starting 04/17/20 at 1024, Until 04/18/20 at 1023, Routine, Pain (scale 7-10) [facility] aspirin chewable tablet 324 mg 04-17 14:59: 00 04-17 15:04 :00 No 324mg 324 mg, Oral, ONCE, 1 dose, 04/17/20 at 1000, Routine [facility] proMETHazin e (PHENERGAN) 25 mg in NaCl 0.9% (NS) 50 mL piggyback 04-17 14:45: 00 04-17 14:45 :00 No 25mg 25 mg, IV Piggyback, ONCE, 1 dose, 04/17/20 at 0945, 50 mL [facility] NaCl 0.9% (NS) bolus infusion 500 mL 04-17 14:00: 00 04-18 01:12 :00 No 500mL at 999 mL/hr, 500 mL, IV Infusion, ONCE, 1 dose, 04/17/20 at 0900, STAT [facility] ondansetron (ZOFRAN (PF)) injection 4 mg 04-17 14:00: 00 04-17 13:10 :00 No 4mg 4 mg, Slow IV Push, ONCE, 1 dose, 04/17/20 at 0900, [facility] morpHINE injection 4 mg 04-17 14:00: 00 04-17 13:10 :00 No 4mg 4 mg, Slow IV Push, ONCE, 1 dose, 04/17/20 at 0900, STAT [facility] pantoprazol e (PROTONIX) 40 mg in NaCl 0.9% (NS) 100 mL MINI-BAG 04-17 14:00: 00 04-17 13:26 :00 No 40mg 40 mg, IV Piggyback, ONCE, 1 dose, 04/17/20 at 0900, 100 mL [facility] NaCl 0.9% (NS) bolus infusion 1,000 mL 04-17 13:00: 00 04-17 15:04 :00 No 1000mL at 999 mL/hr, 1,000 mL, IV Infusion, ONCE, 1 dose, 04/17/20 at 0800, STAT [facility] ondansetron (ZOFRAN (PF)) injection 4 mg 04-17 13:00: 00 04-17 11:54 :00 No 4mg 4 mg, Slow IV Push, ONCE, 1 dose, 04/17/20 at 0800, [facility] LORazepam (ATIVAN) injection 2 mg 04-08 09:00: 00 04-08 07:56 :00 No 2mg 2 mg, Slow IV Push, ONCE, 1 dose, Erika 04/08/20 at 0400, Routine [facility] NaCl 0.9% (NS) IV infusion 1,000 mL 04-08 06:00: 00 Yes 1000mL at 150 mL/hr, Intravenou s, CONTINUOUS , Starting Erika 04/08/20 at 0100, Until Discontinu ed, Routine [facility] ondansetron (ZOFRAN (PF)) injection 8 mg 04-08 06:00: 00 04-08 04:53 :00 No 8mg 8 mg, Slow IV Push, ONCE, 1 dose, Erika 04/08/20 at 0100, JUNE [facility] NaCl 0.9% (NS) IV infusion 1,000 mL 04-08 05:45: 00 04-08 06:21 :00 No 1000mL at 999 mL/hr, Intravenou s, ONCE, 1 dose, Erika 04/08/20 at 0045, Routine [facility] NaCl 0.9% (NS) bolus infusion 1,000 mL 04-08 01:00: 00 04-08 02:20 :00 No 1000mL at 999 mL/hr, 1,000 mL, IV Infusion, ONCE, 1 dose[facility] 2000[facility] No known [facility] No Un nor[facility] No known medications No Un nora [facility] Vital Signs Vital Name Observation Time Observation Value Comments S ource Body temperature 2023-06-16 19:36:00 37.22 Sumi [facility] Respiratory rate 2023-06-16 19:36:00 18 /min [facility] Systolic blood pressure 2023-06-16 19:00:00 104 mm[Hg] [facility] Diastolic blood pressure 2023-06-16 19:00:00 62 mm[Hg] [facility] Heart rate 2023-06-16 19:00:00 81 /min [facility] Oxygen saturation in Arterial blood by Pulse oximetry 2023-06-16 19:00:00 97 /min [facility] Body height 2023-06-16 12:42:00 175.3 cm [facility] Body weight 2023-06-16 12:42:00 68.04 kg [facility] BMI 2023-06-16 12:42:00 22.15 kg/m2 [facility] Systolic blood pressure 2023-05-01 08:48:00 136 mm[Hg] [facility] Diastolic blood pressure 2023-05-01 08:48:00 93 mm[Hg] [facility] Heart rate 2023-05-01 08:48:00 70 /min [facility] Body temperature 2023-05-01 08:48:00 36.78 Sumi [facility] Respiratory rate 2023-05-01 08:48:00 18 /min [facility] Body height 2023-05-01 08:48:00 175.3 cm [facility] Body weight 2023-05-01 08:48:00 73.483 kg [facility] BMI 2023-05-01 08:48:00 23.92 kg/m2 [facility] Oxygen saturation in Arterial blood by Pulse oximetry 2023-05-01 08:48:00 98 /min [facility] Systolic blood pressure 2023-03-22 07:34:00 154 mm[Hg] [facility] Diastolic blood pressure 2023-03-22 07:34:00 107 mm[Hg] [facility] Heart rate 2023-03-22 07:34:00 71 /min [facility] Body temperature 2023-03-22 07:34:00 36.56 Sumi [facility] Respiratory rate 2023-03-22 07:34:00 16 /min [facility] Oxygen saturation in Arterial blood by Pulse oximetry 2023-03-22 07:34:00 100 /min [facility] Body height 2023-03-22 06:17:00 175.3 cm [facility] Body weight 2023-03-22 06:17:00 72.485 kg [facility] [facility] BMI 2023-03-22 06:17:00 23.60 kg/m2 [facility] Systolic blood pressure 2023-02-10 03:00:00 195 mm[Hg] [facility] Diastolic blood pressure 2023-02-10 03:00:00 98 mm[Hg] [facility] Heart rate 2023-02-10 03:00:00 137 /min [facility] Respiratory rate 2023-02-10 03:00:00 18 /min [facility] Oxygen saturation in Arterial blood by Pulse oximetry 2023-02-10 03:00:00 90 /min [facility] Body temperature 2023-02-10 02:30:00 37.78 Sumi [facility] Body weight 2023-02-09 23:09:00 79.379 kg [facility] BMI 2023-02-09 23:09:00 25.84 kg/m2 [facility] Systolic blood pressure 2023-02-08 12:10:00 163 mm[Hg] [facility] Diastolic blood pressure 2023-02-08 12:10:00 102 mm[Hg] [facility] Respiratory rate 2023-02-08 12:10:00 16 /min [facility] Heart rate 2023-02-08 09:00:00 80 /min [facility] Oxygen saturation in Arterial blood by Pulse oximetry 2023-02-08 09:00:00 97 /min [facility] Body temperature 2023-02-08 08:26:00 36.78 Sumi [facility] Body height 2023-02-08 08:26:00 175.3 cm [facility] Body weight 2023-02-08 08:26:00 79.379 kg [facility] BMI 2023-02-08 08:26:00 25.84 kg/m2 [facility] Systolic blood pressure 2023-01-13 05:00:00 150 mm[Hg] [facility] Diastolic blood pressure 2023-01-13 05:00:00 99 mm[Hg] [facility] Heart rate 2023-01-13 05:00:00 74 /min [facility] Respiratory rate 2023-01-13 03:30:00 9 /min [facility] Oxygen saturation in Arterial blood by Pulse oximetry 2023-01-13 03:30:00 100 /min [facility] Body temperature 2023-01-13 02:06:00 37 Sumi [facility] Body height 2023-01-13 02:06:00 175.3 cm [facility] Body weight 2023-01-13 02:06:00 68.04 kg [facility] BMI 2023-01-13 02:06:00 22.15 kg/m2 Univ [facility] Systolic blood pressure 2021-11-24 13:48:00 141 mm[Hg] [facility] Diastolic blood pressure 2021-11-24 13:48:00 90 mm[Hg] [facility] Heart rate 2021-11-24 13:48:00 80 /min [facility] Body temperature 2021-11-24 13:48:00 36.78 Sumi [facility] Respiratory rate 2021-11-24 13:48:00 22 /min [facility] Body weight 2021-11-24 13:48:00 79.379 kg [facility] BMI 2021-11-24 13:48:00 27.41 kg/m2 [facility] Oxygen saturation in Arterial blood by Pulse oximetry 2021-11-24 13:48:00 99 /min [facility] Systolic blood pressure 2021-10-23 18:43:00 136 mm[Hg] [facility] Diastolic blood pressure 2021-10-23 18:43:00 89 mm[Hg] [facility] Heart rate 2021-10-23 18:43:00 73 /min [facility] Body temperature 2021-10-23 18:43:00 37 Sumi [facility] Respiratory rate 2021-10-23 18:43:00 18 /min [facility] Body weight 2021-10-23 18:43:00 70.308 kg [facility] BMI 2021-10-23 18:43:00 24.28 kg/m2 Univ [facility] Oxygen saturation in Arterial blood by Pulse oximetry 2021-10-23 18:43:00 100 /min [facility] Systolic blood pressure 2020-04-18 16:00:00 132 mm[Hg] [facility] Diastolic blood pressure 2020-04-18 16:00:00 95 mm[Hg] [facility] Heart rate 2020-04-18 16:00:00 82 /min [facility] Body temperature 2020-04-18 16:00:00 37.17 Sumi [facility] Respiratory rate 2020-04-18 16:00:00 18 /min [facility] Oxygen saturation in Arterial blood by Pulse oximetry 2020-04-18 16:00:00 98 /min [facility] Body weight 2020-04-18 08:08:[address] [facility] BMI 2020-04-18 08:08:00 24.51 kg/m2 Univ [facility] Body height 2020-04-17 22:34:[address] [facility] Systolic blood pressure 2020-04-18 16:00:00 132 mm[Hg] [facility] Diastolic blood pressure 2020-04-18 16:00:00 95 mm[Hg] [facility] Heart rate 2020-04-18 16:00:00 82 /min [facility] Body temperature 2020-04-18 16:00:00 37.17 Sumi [facility] Respiratory rate 2020-04-18 16:00:00 18 /min [facility] Oxygen saturation in Arterial blood by Pulse oximetry 2020-04-18 16:00:00 98 /min [facility] Body weight 2020-04-18 08:08:00 70.988 kg [facility] BMI 2020-04-18 08:08:00 24.51 kg/m2 [facility] Body height 2020-04-17 22:34:00 170.2 cm [facility] Systolic blood pressure 2020-04-09 12:12:00 134 mm[Hg] [facility] Diastolic blood pressure 2020-04-09 12:12:00 74 mm[Hg] [facility] Heart rate 2020-04-09 12:12:00 80 /[facility] Body [facility] 2020-04-09 12:12:00 37 Sumi [facility] Respiratory rate 2020-04-09 12:12:00 18 /min [facility] Oxygen saturation in Arterial blood by Pulse oximetry 2020-04-09 12:12:00 99 /min [facility] Body weight 2020-04-09 08:55:[address] [facility] BMI 2020-04-09 08:55:00 22.95 kg/m2 [facility] Body height 2020-04-08 06:35:00 175.3 cm [facility] Systolic blood pressure 2020-04-09 12:12:00 134 mm[Hg] [facility] Diastolic blood pressure 2020-04-09 12:12:00 74 mm[Hg] [facility] Heart rate 2020-04-09 12:12:00 80 /min [facility] Body temperature 2020-04-09 12:12:00 37 Sumi [facility] Respiratory rate 2020-04-09 12:12:00 18 /min [facility] Oxygen saturation in Arterial blood by Pulse oximetry 2020-04-09 12:12:00 99 /min [facility] Body weight 2020-04-09 08:55:00 70.489 kg [facility] BMI 2020-04-09 08:55:00 22.95 kg/m2 [facility] Body height 2020-04-08 06:35:00 175.3 cm [facility] Procedures Procedure Date / Time Performed Performing Clinician Source COVID-19 (ID NOW RAPID TESTING) 2023-06-16 18:39:00 Osito Hillman [facility] CT ABDOMEN PELVIS W CONTRAST 2023-06-16 14:31:27 Osito Hillman [facility] URINE DRUG (IMMUNOASSAY) - COMPREHENSIVE DRUG SCREEN 2023-06-16 14:13:00 Osito Hillman [facility] ASSIGNMENT OF BENEFITS 2023-06-16 13:43:45 Docto r Unassigned, Cane Savannah [facility] CONSENT/REFUSAL FOR DIAGNOSIS AND TREATMENT 2023-06-16 13:42:28 Doctor Unassigned, Cane Savannah [facility] CREATINE KINASE 2023-06-16 13:02:00 [facility] 2023-06-16 13:02:00 Osito Hillman [facility] COMP. METABOLIC PANEL (86448) 2023-06-16 13:02:00 Osito Hillman [facility] CBC WITH DIFF 2023-06-16 13:02:00 Osito Hillman [facility] NOTICE OF PRIVACY PRACTICES 2023-05-01 08:43:44 Doctor Unassigned, Cane Savannah [facility] CONSENT/REFUSAL FOR DIAGNOSIS AND TREATMENT 2023-05-01 08:43:11 Doctor Unassigned, Cane Savannah [facility] CONSENT/REFUSAL FOR DIAGNOSIS AND TREATMENT 2023-03-22 05:59:51 Doctor Unassigned, Cane Savannah [facility] URINALYSIS 2023-02-10 01:53:00 Yancy Crump [facility] CREATINE KINASE 2023-02-10 00:43:[address] [facility] LIPASE 2023-02-10 00:43:00 Yancy Crump [facility] COMP. METABOLIC PANEL (51227) 2023-02-10 00:43:00 Yancy Crump [facility] CBC WITH DIFF 2023-02-10 00:43:00 Yancy Crump [facility] XR CHEST 1 VW 2023-02-08 12:06:[address] [facility] URINALYSIS 2023-02-08 11:25:00 Emily Watt [facility] URINE DRUG (IMMUNOASSAY) - COMPREHENSIVE DRUG SCREEN W/O REFLEX 2023-02-08 11:25:00 Emily Watt [facility] LIPASE 2023-02-08 08:40:00 Emily Watt [facility] COMP. METABOLIC PANEL (23746) 2023-02-08 08:40:00 Emily Watt [facility] CBC WITH DIFF 2023-02-08 08:40:[address] [facility] URINALYSIS 2023-01-13 04:28:00 Harshad Lowe [facility] CT ABDOMEN PELVIS W CONTRAST 2023-01-13 03:23:28 Harshad Lowe [facility] LIPASE 2023-01-13 02:22:00 Harshad Lowe [facility] COMP. METABOLIC PANEL (09329) 2023-01-13 02:22:00 Harshad Lowe [facility] CBC WITH DIFF 2023-01-13 02:22:00 Harshad Lowe [facility] CONSENT/REFUSAL FOR DIAGNOSIS AND TREATMENT 2021-11-24 13:39:07 Doctor Unassigned, Cane Savannah [facility] ASSIGNMENT OF BENEFITS 2021-10-23 19:03:33 Docto r Unassigned, Cane Savannah [facility] NOTICE OF PRIVACY PRACTICES 2021-10-23 18:37:52 Doctor Unassigned, Cane Savannah [facility] CONSENT/REFUSAL FOR DIAGNOSIS AND TREATMENT 2021-10-23 18:36:42 Doctor Unassigned, Cane Savannah [facility] MAGNESIUM 2020-04-18 10:16:00 Estrella Joseph [facility] TROPONIN I 2020-04-18 10:16:00 Ramses Wiseman [facility] BASIC METABOLIC PANEL (NA, K, CL, CO2, GLUCOSE, BUN, CREATININE, CA) 2020-04-18 10:16:00 Brunilda Luevano [facility] LIPID PANEL (14382)(TOTAL CHOLESTEROL, TRIGLYCERIDES, HDL) 2020-04-17 17:32:00 [facility] 2020-04-17 16:25:28 Milagros Courtney [facility] SERUM DRUG (IMMUNOASSAY) - COMPREHENSIVE DRUG SCREEN 2020-04-17 16:17:00 Estrella Joseph [facility] PROTHROMBIN TIME / INR 2020-04-17 16:17:00 Kecia Joseph [facility] D-DIMER 2020-04-17 16:17:00 [facility] N-TERMINAL PRO-BNP 2020-04-17 16:17:00 Estrella Joseph [facility] XR CHEST 1 VW 2020-04-17 15:08:28 Milagros Courtney [facility] PHOSPHORUS 2020-04-17 15:07:00 Estrella [facility] TROPONIN I 2020-04-17 15:07:00 Deepak Weber [facility] THYROID STIMULATING HORMONE 2020-04-17 15:07:00 Opal [facility] COVID-19 (ID NOW RAPID TESTING) 2020-04-17 13:14:00 Milagros Courtney [facility] ACUTE CARE VENOUS BLOOD GAS 2020-04-17 13:10:00 Milagros Courtney [facility] EKG-12 LEAD 2020-04-17 13:04:30 Milagros Courtney [facility] EKG-12 LEAD 2020-04-17 12:46:15 Milagros Courtney [facility] CREATINE KINASE 2020-04-17 11:54:[address] 2020-04-17 11:54:00 Murtaza Ramirez [facility] TROPONIN I 2020-04-17 11:54:00 Murtaza [facility] COMP. METABOLIC PANEL (47689) 2020-04-17 11:54:00 [facility]ENTIAL 2020-04-17 11:54:00 Francesco Ramirez [facility] GLYCOSYLATED HEMOGLOBIN (A1C) 2020-04-17 11:54:00 Opal [facility] EKG-12 LEAD 2020-04-17 11:49:44 Murtaza [facility] EKG-12 LEAD 2020-04-17 11:38:11 Murtaza Ramirez [facility] CREATINE KINASE 2020-04-09 08:58:00 Abel West [facility] BASIC METABOLIC PANEL (NA, K, CL, CO2, GLUCOSE, BUN, CREATININE, CA) 2020-04-09 08:58:00 [facility] CBC WITH DIFFERENTIAL 2020-04-09 08:58:00 [facility] BASIC METABOLIC PANEL (NA, K, CL, CO2, GLUCOSE, BUN, CREATININE, CA) 2020-04-08 10:48:00 Mike Bob [facility] COVID-19 (ID NOW RAPID TESTING) 2020-04-08 05:10:00 Yancy Crump [facility] TROPONIN I 2020-04-08 04:22:00 Yancy Crump [facility] EKG-12 LEAD 2020-04-08 04:13:08 Osito Hillman [facility] EKG-12 LEAD 2020-04-08 04:08:34 Yancy Crump [facility] URINALYSIS 2020-04-08 01:57:00 Yancy Crump [facility] ADC / LCC - DRUG SCREEN TRIAGE 2020-04-08 01:57:00 Yancy Crump [facility] CREATINE KINASE 2020-04-08 01:18:[address] [facility] 2020-04-08 01:18:00 Janeth Crumpala Shantal [facility] TROPONIN I 2020-04-08 01:18:00 Yancy Crump [facility] HEPATIC FUNCTION PANEL ([id number]) (ALB,T.PRO,BILI T,BU/BC,ALT,AST,ALK PHOS) 2020-04-08 01:18:00 Yancy Crump [facility] BASIC METABOLIC PANEL (NA, K, CL, CO2, GLUCOSE, BUN, CREATININE, CA) 2020-04-08 01:18:00 Yancy Crump [facility] CBC WITH DIFFERENTIAL 2020-04-08 01:18:00 Huog Crump [facility] EKG-12 LEAD 2020-04-08 00:55:43 Yancy Crump [facility] NOTICE OF PRIVACY PRACTICES 2020-04-08 00:32:15 Doctor Unassigned, Cane Savannah [facility] CONSENT/REFUSAL FOR DIAGNOSIS AND TREATMENT 2020-04-08 00:32:00 Doctor Unassigned, Cane Savannah [facility] Encounters Start Date/Time End Date/Time Encounter Type Admission Type Attending Clinicians Care Facility Care Department Encounter ID Source 2023-06-16 07:46:00 2023-06-16 14:40:00 Emergency X OSITO HILMLAN [facility] ERT [id number] [facility] 2023-06-16 07:46:00 2023-06-16 14:40:00 Emergency Kady Matteo [facility] 1.2.840.114 350.1.13.10 4.2.7.2.686 [id number] [facility] 2023-06-14 21:15:00 2023-06-15 01:17:00 Emergency Jcarlos Yee [facility] [id number] [facility] 2023-05-01 03:52:00 2023-05-01 06:14:00 Emergency X MILAGROS COURTNEY [facility] ERT [id number] [facility] 2023-05-01 03:52:00 2023-05-01 06:14:00 Emergency Kenneth Courtneylovely Hue [facility] 1.2.840.114 350.1.13.10 4.2.7.2.686 [id number] [facility] 2023-03-22 01:19:00 2023-03-22 02:41:00 Emergency X SAEED RAMIRO [facility] ERT [id number] [facility] 2023-03-22 01:19:00 2023-03-22 02:41:00 Emergency TiptonRamiro chong S [facility] 1.2.840.114 350.1.13.10 4.2.7.2.686 [id number] [facility] 2023-02-09 18:10:00 2023-02-09 23:44:00 Emergency X ALISIA YANCY [facility] ERT [id number] [facility] 2023-02-09 18:10:00 2023-02-09 23:44:00 Emergency Yancy Crump [facility] 1.2.840.114 350.1.13.10 4.2.7.2.686 [id number] [facility] 2023-02-08 03:22:00 2023-02-08 07:21:00 Emergency X MURTAZA RAMIREZ [facility] ERT [id number] [facility] 2023-02-08 03:22:00 2023-02-08 07:21:00 Emergency Emily Watt Phillip [facility] 1.2.840.114 350.1.13.10 4.2.7.2.686 [id number] [facility] 2023-01-12 21:09:00 2023-01-13 00:30:00 Emergency HARSHAD ARENAS [facility] ERT [id number] [facility] 2023-01-12 21:09:00 2023-01-13 00:30:00 Emergency Harshad Lowe [facility] 1.2.840.114 350.1.13.10 4.2.7.2.686 [id number] [facility] 2021-11-24 07:50:00 2021-11-24 08:22:00 Emergency X CARI KENIA [facility] ERT [id number] [facility] 2021-11-24 07:50:00 2021-11-24 08:22:00 Emergency Cari Kenia Armas [facility] 1.2.840.114 350.1.13.10 4.2.7.2.686 [id number] [facility] 2021-10-23 12:44:00 2021-10-23 13:18:00 Emergency X SMILEY WELCH [facility] ERT [id number] [facility] 2021-10-23 12:44:00 2021-10-23 13:18:00 Emergency Yuri Smiley [facility] 1.2.840.114 350.1.13.10 4.2.7.2.686 [id number] [facility] 2020-04-17 06:30:30 2020-04-18 11:35:00 Emergency Milagros Courtney Yaman [facility] 1.2.840.114 350.1.13.10 4.2.7.2.686 [id number] 2020-04-17 06:30:30 2020-04-18 11:35:00 Emergency Milagros Courtney Yaman [facility] 1.2.840.114 350.1.13.10 4.2.7.2.686 [id number] [facility] 2020-04-17 06:30:30 2020-04-17 06:30:30 Emergency X MILAGROS COURTNEY [facility] ERT [id number] [facility] 2020-04-14 00:00:00 2020-04-14 00:00:00 Telephone [facility] 1.2.840.114 350.1.13.10 4.2.7.2.686 [id number] 2020-04-14 00:00:00 2020-04-14 00:00:00 Telephone [facility] 1.2.840.114 350.1.13.10 4.2.7.2.686 [id number] [facility] 2020-04-07 19:37:02 2020-04-09 10:30:00 Emergency Yancy Crump [facility] 1.2.840.114 350.1.13.10 4.2.7.2.686 [id number] 2020-04-07 19:37:02 2020-04-09 10:30:00 Emergency Yancy Crump [facility] 1.2.840.114 350.1.13.10 4.2.7.2.686 [id number] [facility] 2020-04-07 19:37:02 2020-04-07 19:37:02 Emergency X YANCY CRUMP [facility] ERT [id number] [facility] Results Test Description Test Time Test Comments Results Result Co mments Source CBC W/O [id number] 22:58:00* Test Item Value Reference Range Interpretation [...] 7.0-9.6 H - CT ABD PELVIS W/O [id number] 22:46:[address] [facility] 1980 Sex: M Name: BRUCE OSWALD [facility] : 1980 Age/S: 43 / M [id number] Unit #: [id number] Loc: [place] [address] Phys: Jcarlos Mora MD Acct: [id number] Dis Date: Status: REG ER PHONE #: [phone] Exam Date: 06/14/20232214 FAX #: Reason: gen abdominal pain EXAMS: CPT: [id number] CT ABD PELVIS W/O CONT 63812 EXAM: - CT ABD PELVIS W/O CONT LOCATION: H47 HISTORY: gen abdominal pain COMPARISON: None available at the time of interpretation. TECHNIQUE: Contrast - No IV contrast was given. No oral contrast was given Noncontrast phase - abdomen and pelvis including all of kidneysReconstructions - coronal and sagittal planes Unless otherwise specified, incidental findings do not require dedicated imaging follow-up. This exam was performed according to our departmental dose-optimization program, which includes automated exposure control, adjustment of the mA and/or kV according to patient size and/or use of iterative reconstruction technique FINDINGS: Statements: Lack of intravenous contrast compromises evaluation of abdominopelvic organs and vasculature. Lack of oral contrast compromises evaluation of bowel. Thoracic: Included images of the lower chest demonstrate noabnormalities. Hepatobiliary: The liver is normal without focal lesion. The gallbladder is normal. No biliary dilation. Pancreas: Normal. Spleen: Normal. Adrenals: Normal. Genitourinary: The kidneys are normal. There is no evidence of hydronephrosis of either kidney. There is no evidence of renal calculus. Evaluation of the bladder is limited, but no obvious bladder abnormality is present. Gastrointestinal: No bowel obstruction or perienteric inflammation. The appendix is not visualized. PAGE 1Signed Report (CONTINUED) Name: BRUCE OSWALD [facility] : 1980 Age/S: 43 / M [id number] [facility]: [id number] Loc: [place] [address] Phys: Jcarlos Mora MD Acct: [id number] Dis Date: Status: REG ER PHONE #: [phone] Exam Date: 06/14/20232214 FAX #: Reason: gen abdominal pain EXAMS: CPT: [id number] CT ABD PELVIS W/O CONT 53773 (Continued) Vascular: The aorta is grossly normal in appearance. Lymphatics: No enlarged lymph nodes by CT size criteria. Bones/Soft Tissues: Noacute osseous findings. No ventral hernias. Peritoneum/Other: No extraluminal air. No extraluminal fluid. IMPRESSION: No acute findings. The appendix is not visualized and there is no pericecal inflammation. at 2246 Reported and signed by: HERMINIO FAUST M.D. CC: Jcarlos Mora MD Technologist:Alistair Alcala, RT(R)(CT) CTDI:DLP: Trnscb Date/Time: 06/14/2023 (2245) t.SDR.[email or web address] Orig Print D/T: S: 06/14/2023 (4571) PAGE 2 Signed ReportBASIC METABOLIC [id number] 22:09:00* Test Item Value Reference Range Interpretation [...] CA) 7.5 MG/DL 8.5-10.1 L HEPATIC FUNCTION [id number] 22:09:00* Test Item Value Reference Range Interpretation [...] code = ALKP) 71 Unit/L 50-136 N [id number] 22:09:00* Test Item Value Reference Range Interpretation Comme nts LIPASE (test code = LIP) 20 Unit/L 114-286 L TROP-I HIGH [id number] 22:09:00* Test Item Value Reference Range Interpretation Comme nts TROP-I HIGH SENSITIVITY (test code = TROPIHS) [...] quantitative results and URLs may varyby method. [id number] 22:09:00* Test Item Value Reference Range Interpretation Comme nts ALCOHOL (test code = ALC) < 3 MG/DL 0-10 N - XR CHEST 1 [id number] 21:55:[address] [facility] : 1980 Sex: M Name: BRUCE OSWALD [place] : 1980 Age/S: 43 / M [id number] Unit #: [id number] Loc: [place] [address] Phys: Jcarlos Mora MD Acct: [id number] Dis Date: Status: PRE ER PHONE #: [phone] Exam Date: 06/14/20232124 FAX #: Reason: chest pain EXAMS: CPT: [id number] XR CHEST1 V 18106 Fluoro Time: DAP (Gy m2): Air Kerma (mGy): EXAM: - XR CHEST 1 V CLINICAL HISTORY: chest pain TECHNIQUE: Single frontal view. COMPARISON: None available. LOCATION: H65 FINDINGS: The trachea appears normal. The mediastinum and cardiac silhouette are within normal limits for size. The lungs are clear. No pleural effusions. Visualized soft tissues and osseous structures are grossly unremar kable. IMPRESSION: No acute cardiopulmonary process. at 2155 Reported and signed by: Jacobo Willis D.O. CC: Jcarlos Mora MD PAGE 1 Signed Report Name: BRUCE OSWALD [place] : 1980 Age/S: 43 / M [address] Unit#: [id number] Loc: [place] [address] Phys: Jcarlos Mora MD Acct: [id number] Dis Date: Status: PRE ER PHONE #: [phone] Exam Date: 06/14/20232124 FAX #: Reason: chest pain EXAMS: CPT: [id number] XR CHEST 1 V 65324 Fluoro Time: DAP (Gy m2): Air Kerma (mGy): (Continued) Technologist: MichaelS. Alcala, RT(R)(CT) Trncab Date/Time: 06/14/2023 (2154) [id number] Orig Print D/T: S: 06/14/2023(2158) PAGE 2 Signed ReportComplete Metabolic [id number] 09:11:50* Test Item Value Reference Range Interpretation Comme nts NA (test code = 4532743251) 134 mmol/L 135-145 L K (test code = 1390631666) 4.5 mmol/L 3.5-5.0 CL (test code = 6209343043) 102 mmol/L 98-108 CO2 TOTAL (test code = 8977744011) 15 mmol/L 23-31 L AGAP (test code = 9526084497) 17 2-16 H BUN (test code = 2169757116) 29 mg/dL 7-23 H GLUCOSE (test code = 2888463267) 192 mg/dL 70-110 H CREATININE (test code = 3561524247) 1.67 mg/dL 0.60-1.25 H TOTAL BILI (test code = 6430537225) 0.8 mg/dL 0.1-1.1 CALCIUM (test code = 3108461240) 9.9 mg/dL 8.6-10.6 T PROTEIN (test code = 9098485567) 8.8 g/dL 6.3-8.2 H ALBUMIN (test code = 9066465796) 5.4 g/dL 3.5-5.0 H ALK PHOS (test code = 4487262046) 89 U/L 34-122 ALTv (test code = 1742-6) 37 U/L 5-50 AST(SGOT) (test code = 1528978322) 54 U/L 13-40 H eGFR (test code = 8477323727) 45.6 mL/min/1.73m2 MARIA LUZ (test code = [...] imaging tests). Lab Interpretation (test code = 98541-8) [facility], [id number] 09:11:50* Test Item Value Reference Range Interpretation Comme [facility] LIPASE (test code = 9266990594) 19 U/L 0-220 Lab Interpretation (test cod e = 28421-6) Normal [facility]CBC with [id number] 08:59:28* Test Item Value Reference Range Interpretation [...] g/dL 31.2-35.0 H RDW-SD (test code = 77485-7) 44.0 fL 38.5-51.6 RDW-CV (test code = 788-0) 13.3 % 12.1-15.4 PLT (test code = 777-3) 150 See_Comment [Automated message] The system which generated this result transmitted reference range: 150 - 328 10*3/?L. The reference range was not used to interpret this result as normal/abnormal. MPV (test code = 05044-7) 12.0 fL 9.8-13.0 NRBC/100 WBC (test code = 5209770043) 0.0 See_Comment [Automated message] The system which generated this result transmitted reference range: 0.0 - 10.0 /100 WBCs. The reference range was not used to interpret this result as normal/abnormal. NRBC x10^3 (test code = 3734421909) See_Comment [Automated message] The system which generated this result transmitted reference range: 10*3/?L. The reference range was not used to interpret this result as normal/abnormal. GRAN MAT (NEUT) % (test code = 770-8) 83.1 % IMM GRAN % (test code = 0331167465) 0.40 % LYMPH % (test code = 736-9) 14.0 % MONO % (test code = 5905-5) 2.3 % EOS % (test code = 713-8) 0.0 % BASO % (test code = 706-2) 0.2 % GRAN MAT x10^3(ANC) (test code = 3974328367) 12.08 10*3/uL 1.99-6.95 H IMM GRAN x10^3 (test code = 7154819269) 0.06 10*3/uL 0.00-0.06 LYMPH x10^3 (test code = 731-0) 2.03 10*3/uL 1.09-3.23 MONO x10^3 (test code = 742-7) 0.33 10*3/uL 0.36-1.02 L EOS x10^3 (test code = 711-2) 0.06-0.53 L BASO x10^3 (test code = 704-7) 0.03 10*3/uL 0.01-0.09 Lab Interpretation (test code = 18860-4) Abnormal [facility]bergTROPONIN [id number] 13:30:00* Test Item Value Reference Range Interpretation Comme nts TROPONIN I (test code = 6944026550) 0.020 ng/mL See_Comment [Automated message] The system [...] biotin. ? Lab Interpretation (test code = 18734-4) Normal [facility]bergMagnesium Fkzvd5259-45-66 11:02:00* Test Item Value Reference Range Interpretation Comme nts MAGNESIUM (test code = 4648056561) 2.0 mg/dL 1.7-2.4 Lab Interpretation (test cod e = 03002-3) [facility] (NA, K, CL, CO2, GLUCOSE, BUN, CREATININE, CA)2020-04-18 11:02:00* Test Item Value Reference Range Interpretation Comme nts NA (test code = 8358011742) 138 mmol/L 135-145 K (test code = 3308708910) 3.7 mmol/L 3.5-5 CL (test code = 2521654200) 112 mmol/L 98-108 H CO2 TOTAL (test code = 7484870985) 22 mmol/L 23-31 L AGAP (test code = 0912291138) 2-16 BUN (test code = 6302757135) 12 mg/dL 7-23 GLUCOSE (test code = 0191742783) 112 mg/dL 70-110 H CREATININE (test code = 1220998341) 0.96 mg/dL 0.6-1.25 CALCIUM (test code = 2234236647) 8.6 mg/dL 8.6-10.6 eGFR Calculation (Non-) (test code = 6977661800) mL/min/1.73m2 eGFR Calculation () (test code = 5605286323) mL/min/1.73m2 MARIA LUZ (test code = MARIA [...] imaging tests). Lab Interpretation (test code = 42661-6) [facility]normal [facility]bergDrug Screen Panel 3 [id number] 22:11:00* Test Item Value Reference Range Interpretation Comme nts COMPA S (test code = 8296360924) Negative Negative BENZO S (test code = 8081720294) Negative Negative TRICYCLIC (test code = 0189848196) Negative Negative MARIA LUZ (test code = MARIA LUZ) Serum Drug Screen Cutoff Ranges Barbiturates ? ? - 3 mcg/mLBenzodiazepines ?- 50 ng/mLTCA ?- 300 ng/mL Test developed and characteristics determined by [facility]. The results are to be used only for medical (i.e., treatment) purposes. Unconfirmed screening results must not be used for non-medical purposes (e.g., employment testing, legal testing). Lab Interpretation (test code = 85197-7) Normal [facility] KlebergLIPID PANEL (14708)(TOTAL CHOLESTEROL, TRIGLYCERIDES, HDL)2020-04-17 18:13:00* Test Item Value Reference Range Interpretation Comme nts CHOL (test code = 0140690920) 121 mg/dL 120-200 HDL (test code = 6156924545) 42 mg/dL >40 HDLC RATIO (test code = 1857334718) See_Comment [Databanq] The system which generated this result transmitted reference range: <=5.0. The reference range was not used to interpret this result as normal/abnormal. TRIG (test code = 3552279421) 41 mg/dL 30-170 LDL CHOL (test code = 42925-6) 71 mg/dL See_Comment [Databanq] The system which generated this result transmitted reference range: <=160. The reference range was not used to interpret this result as normal/abnormal. VLDL (test code = 4848618322) 8 mg/dL 5-60 Lab Interpretation (test code = 88975-1) Normal [facility] KlebergN-TERMINAL [id number]-[id number] 17:06:00* Test Item Value Reference Range Interpretation Comme nts NT-proBNP (test code = 8067880762) 51 pg/mL See_Comment [Automated message] The system which generated this result transmitted reference range: <=125. The reference range was not used to interpret this result as normal/abnormal. MARIA LUZ (test code = MARIA LUZ) Biotin has been reported to cause a negative bias, interpret results relative to patient's use of biotin. Lab Interpretation (test code = 90690-8) Normal [facility] KlebergTHYROID STIMULATING [id number] 16:58:00 * Test Item Value Reference Range Interpretation Comme nts TSH (test code = 9512792251) See_Comment [Automated messa bepretty] The system which generated this result transmitted reference range: 0.45 - 4.70 mIU/L. The reference range was not used to interpret this result as normal/abnormal. Lab Interpretation (test code = 29516-0) Normal [facility] KlebergD-ZIHEA6402-46-11 16:56:00* Test Item Value Reference Range Interpretation Comments D-DIMER (test code = 3692594193) <0.27 See_Comment [Automated message] The system which [...] a diagnosis. Lab Interpretation (test code = 57312-5) Normal [facility] KlebergProthrombin Time / [id number] 16:43:00* Test Item Value Reference Range Interpretation Comme nts PROTIME PATIENT (test code = 5964-2) See_Comment [Automated [employer] bepretty] The system which generated this result transmitted reference range: 12.0 - 14.7 Seconds. The reference range was not used to interpret this result as normal/abnormal. INR (test code = 6301-6) Normal INR <1.1; Warfarin Therapeutic range 2.0 to 3.0 or 2.5 to 3.5, depending upon the indications. Lab Interpretation (test code = 97703-5) Normal [facility] KlebergXR CHEST 1 [id number] 16:42:54No acute cardiopulmonary abnormality. Preliminary Report Dictated [...] reviewed this study and agree with theabove report.[facility] KlebergPhosphorus [id number] 16:09:00* Test Item Value Reference Range Interpretation Comme nts PHOSPHORUS (test code = 9024236268) 2.5 mg/dL 2.5-5 Lab Interpretation (test cod e = 01250-5) Normal [facility] KlebergGlycosylated Hemoglobin (A1C)2020-04-17 15:56:00* Test Item Value Reference Range Interpretation Comme nts HGB A1C (test code = 4548-4) 5.5 % 4-6 MARIA LUZ (test code = MARIA LUZ) %A1C (NGSP) Interpretation (ADA)4.8-5.6 ? ? Normal or (Non-Diabetic Range)5.7-6.4 ? ? Increased Risk (Pre-Diabetic)>6.5 ?Diabetes Indicated Lab Interpretation (test code = 56862-3) Normal [facility]bergTROPONIN [id number] 15:39:00* Test Item Value Reference Range Interpretation Comme nts TROPONIN I (test code = 9511766785) 0.031 ng/mL See_Comment [Automated message] The system [...] biotin. ? Lab Interpretation (test code = 19250-3) Normal [facility]bergCOVID-19 (ID NOW RAPID TESTING)2020-04-17 14:00:00* Test Item Value Reference Range Interpretation Comme nts SARS-CoV-2 Rapid ID NOW (test code = 18495-1) Not Detected Not Detected MARIA LUZ (test code = MARIA LUZ) ID NOW COVID-19 As say is an isothermal nucleic acid amplification test intended for the qualitative detection of nucleic acid from SARS-CoV-2 viral RNA in nasopharyngeal ([employer]) specimens. It is used under Emergency Use [...] clinically indicated. Lab Interpretation (test code = 42186-0) Normal [facility] CARE VENOUS BLOOD [id number] 13:25:00 * Test Item Value Reference Range Interpretation Comme nts PH (test code = 0812069827) 7.32-7.42 PCO2 NAS (test code = 5001451635) See_Comment L [Automated messa ge] The system which generated this result transmitted reference range: 41 - 51 mmHg. The reference range was not used to interpret this result as normal/abnormal. PO2 NAS (test code = 3467355866) See_Comment [Automated messa ge] The system which generated this result transmitted reference range: 25 - 40 mmHg. The reference range was not used to interpret this result as normal/abnormal. HCO3 NAS (test code = 7695305341) See_Comment L [Automated messa ge] The system which generated this result transmitted reference range: 24 - 28 mEq/L. The reference range was not used to interpret this result as normal/abnormal. AC VBE(BEAKER) (test code = 9659276444) mEq/L Lab Interpretation (test code = 28409-2) Abnormal [facility]bergCREATINE [id number] 13:01:00* Test Item Value Reference Range Interpretation Comme nts CK (test code = 8779876753) 174 U/L 33-194 Lab Interpretation (test cod e = 18108-8) Normal [facility]bergCBC WITH [id number] 12:32:00* Test Item Value Reference Range Interpretation Comme nts WBC (test code = 6690-2) See_Comment H [Automated messa ge] The system which generated this result transmitted reference range: 4.20 - 10.70 10*3/?L. The reference range was not used to interpret this result as normal/abnormal. RBC (test code = 789-8) See_Comment [Automated messa ge] The system which [...] g/dL 31.2-35 H RDW-SD (test code = 93284-2) 43.5 fL 38.5-51.6 RDW-CV (test code = 788-0) 12.9 % 12.1-15.4 PLT (test code = 777-3) See_Comment [Automated messa ge] The system which generated this result transmitted reference range: 150 - 328 10*3/?L. The reference range was not used to interpret this result as normal/abnormal. MPV (test code = 72227-8) 11.6 fL 9.8-13 NRBC/100 WBC (test code = 1040212986) See_Comment [Automated [employer] ssage] The system which generated this result transmitted reference range: 0.0 - 10.0 /100 WBCs. The reference range was not used to interpret this result as normal/abnormal. NRBC x10^3 (test code = 9406240581) <0.01 See_Comment [Automated messa ge] The system which generated this result transmitted reference range: 10*3/?L. The reference range was not used to interpret this result as normal/abnormal. GRAN MAT (NEUT) % (test code = 770-8) 43.3 % IMM GRAN % (test code = 8582498945) 0.60 % LYMPH % (test code = 736-9) 46.1 % MONO % (test code = 5905-5) 8.3 % EOS % (test code = 713-8) 1.3 % BASO % (test code = 706-2) 0.4 % GRAN MAT x10^3(ANC) (test code = 3473581817) 5.12 10*3/uL 1.99-6.95 IMM GRAN x10^3 (test code = 2650144905) 0.07 10*3/uL 0-0.06 H LYMPH x10^3 (test code = 731-0) 5.45 10*3/uL 1.09-3.23 H MONO x10^3 (test code = 742-7) 0.98 10*3/uL 0.36-1.02 EOS x10^3 (test code = 711-2) 0.15 10*3/uL 0.06-0.53 BASO x10^3 (test code = 704-7) 0.05 10*3/uL 0.01-0.09 Lab Interpretation (test code = 53913-9) Abnormal [facility] [id number] 12:29:00* Test Item Value Reference Range Interpretation Comme nts TROPONIN I (test code = 9108233681) 0.038 ng/mL See_Comment H [Automated message] The [...] biotin. ? Lab Interpretation (test code = 39050-2) Abnormal [facility]bergCOMP. METABOLIC PANEL (12147)2020-04-17 12:18:00* Test Item Value Reference Range Interpretation Comme nts NA (test code = 8822362619) 135 mmol/L 135-145 K (test code = 4728672504) 3.6 mmol/L 3.5-5 CL (test code = 8823719971) 106 mmol/L 98-108 CO2 TOTAL (test code = 2573164964) 16 mmol/L 23-31 L AGAP (test code = 2093351770) 2-16 BUN (test code = 7029659784) 29 mg/dL 7-23 H GLUCOSE (test code = 4256600539) 157 mg/dL 70-110 H CREATININE (test code = 9174195261) 1.53 mg/dL 0.6-1.25 H TOTAL BILI (test code = 4590474655) 0.4 mg/dL 0.1-1.1 CALCIUM (test code = 6584893381) 9.5 mg/dL 8.6-10.6 T PROTEIN (test code = 3093370418) 8.3 g/dL 6.3-8.2 H ALBUMIN (test code = 2850947452) 4.7 g/dL 3.5-5 ALK PHOS (test code = 9456513340) 74 U/L 34-122 ALTv (test code = 1742-6) 29 U/L 5-50 AST(SGOT) (test code = 8998733923) 28 U/L 13-40 eGFR Calculation (Non-) (test code = 3230099014) mL/min/1.73m2 eGFR Calculation () (test code = 7207564125) mL/min/1.73m2 MARIA LUZ (test code = MARIA [...] imaging tests). Lab Interpretation (test code = 49980-6) Abnormal [facility]bergLIPASE, [id number] 12:17:00* Test Item Value Reference Range Interpretation Comme nts LIPASE (test code = 2849236305) 102 U/L 0-220 Lab Interpretation (test cod e = 40771-6) Normal [facility] KlebergBASI METABOLIC PANEL (NA, K, CL, CO2, GLUCOSE, BUN, CREATININE, CA)2020-04-09 11:06:00* Test Item Value Reference Range Interpretation Comme nts NA (test code = 0236764538) 139 mmol/L 135-145 K (test code = 0379023016) 4.1 mmol/L 3.5-5 CL (test code = 7062926906) 111 mmol/L 98-108 H CO2 TOTAL (test code = 6717680054) 24 mmol/L 23-31 AGAP (test code = 4299683615) 2-16 BUN (test code = 3423910207) 14 mg/dL 7-23 GLUCOSE (test code = 1746918000) 98 mg/dL 70-110 CREATININE (test code = 4995940588) 0.90 mg/dL 0.6-1.25 CALCIUM (test code = 6043928851) 8.5 mg/dL 8.6-10.6 L eGFR Calculation (Non-) (test code = 5835292821) mL/min/1.73m2 eGFR Calculation () (test code = 1690070243) mL/min/1.73m2 MARIA LUZ (test code = MARIA [...] imaging tests). Lab Interpretation (test code = 96396-6) Abnormal [facility] WITH [id number] 10:49:00* Test Item Value Reference Range Interpretation Comme nts WBC (test code = 6690-2) See_Comment H [Automated [employer] bepretty] The system which generated this result transmitted [...] 34.6 g/dL 31.2-35 RDW-SD (test code = 91459-3) 47.0 fL 38.5-51.6 RDW-CV (test code = 788-0) 13.7 % 12.1-15.4 PLT (test code = 777-3) See_Comment L [Automated messa ge] The system which generated this result transmitted reference range: 150 - 328 10*3/?L. The reference range was not used to interpret this result as normal/abnormal. MPV (test code = 38777-4) 12.2 fL 9.8-13 NRBC/100 WBC (test code = 2703426019) See_Comment [Automated [employer] ssage] The system which generated this result transmitted reference range: 0.0 - 10.0 /100 WBCs. The reference range was not used to interpret this result as normal/abnormal. NRBC x10^3 (test code = 1551676718) <0.01 See_Comment [Automated messa ge] The system which generated this result transmitted reference range: 10*3/?L. The reference range was not used to interpret this result as normal/abnormal. GRAN MAT (NEUT) % (test code = 770-8) 61.9 % IMM GRAN % (test code = 8837392159) 0.40 % LYMPH % (test code = 736-9) 30.3 % MONO % (test code = 5905-5) 6.9 % EOS % (test code = 713-8) 0.2 % BASO % (test code = 706-2) 0.3 % GRAN MAT x10^3(ANC) (test code = 4680510941) 7.44 10*3/uL 1.99-6.95 H IMM GRAN x10^3 (test code = 4487302176) 0.05 10*3/uL 0-0.06 LYMPH x10^3 (test code = 731-0) 3.64 10*3/uL 1.09-3.23 H MONO x10^3 (test code = 742-7) 0.83 10*3/uL 0.36-1.02 EOS x10^3 (test code = 711-2) <0.03 0.06-0.53 L BASO x10^3 (test code = 704-7) 0.04 10*3/uL 0.01-0.09 Lab Interpretation (test code = 54688-9) Abnormal [facility]bergCREATINE [id number] 10:38:00* Test Item Value Reference Range Interpretation Comme nts CK (test code = 2822793853) 569 U/L 33-194 H Lab Interpretation (test cod e = 39050-1) Abnormal [facility]bergBASI METABOLIC PANEL (NA, K, CL, CO2, GLUCOSE, BUN, CREATININE, CA)2020-04-08 11:23:00* Test Item Value Reference Range Interpretation Comme nts NA (test code = 2851426842) 136 mmol/L 135-145 K (test code = 7418460586) 5.2 mmol/L 3.5-5 H CL (test code = 4409175728) 107 mmol/L 98-108 CO2 TOTAL (test code = 7394051805) 22 mmol/L 23-31 L AGAP (test code = 2384626334) 2-16 BUN (test code = 7517103752) 24 mg/dL 7-23 H GLUCOSE (test code = 0544217345) 132 mg/dL 70-110 H CREATININE (test code = 0913663652) 1.30 mg/dL 0.6-1.25 H CALCIUM (test code = 8936279565) 8.8 mg/dL 8.6-10.6 eGFR Calculation (Non-) (test code = 3466228852) mL/min/1.73m2 eGFR Calculation () (test code = 2529779535) mL/min/1.73m2 MARIA LUZ (test code = MARIA [...] imaging tests). Lab Interpretation (test code = 12001-2) [facility]normal [facility]OVID[facility] (ID NOW RAPID TESTING)2020-04-08 05:54:00* Test Item Value Reference Range Interpretation Comme nts SARS-CoV-2 Rapid ID NOW (test code = 80312-2) Not Detected Not Detected MARIA LUZ (test code = MARIA LUZ) ID NOW COVID-19 As say is an isothermal nucleic acid amplification test intended for the qualitative detection of nucleic acid from SARS-CoV-2 viral RNA in nasopharyngeal ([employer]) specimens. It is used under Emergency Use [...] clinically indicated. Lab Interpretation (test code = 58654-4) [facility] [id number] 05:01:00* Test Item Value Reference Range Interpretation Comme nts TROPONIN I (test code = 0209010900) <0.012 See_Comment [Automated message] The system which [...] biotin. ? Lab Interpretation (test code = 72270-6) [facility] [id number] 04:38:00* Test Item Value Reference Range Interpretation Comme nts TROPONIN I (test code = 5492473029) <0.012 See_Comment [Automated message] The system which [...] biotin. ? Lab Interpretation (test code = 94514-7) Normal [facility] (NA, K, CL, CO2, GLUCOSE, BUN, CREATININE, CA)2020-04-08 04:28:00* Test Item Value Reference Range Interpretation Comme nts NA (test code = 0046404661) 136 mmol/L 135-145 K (test code = 4699868573) 4.3 mmol/L 3.5-5 CL (test code = 2694941847) 97 mmol/L 98-108 L CO2 TOTAL (test code = 3703039282) 22 mmol/L 23-31 L AGAP (test code = 6617361386) 2-16 H BUN (test code = 1088241799) 31 mg/dL 7-23 H GLUCOSE (test code = 6252396634) 163 mg/dL 70-110 H CREATININE (test code = 0976588434) 2.80 mg/dL 0.6-1.25 H CALCIUM (test code = 5739484041) 10.9 mg/dL 8.6-10.6 H eGFR Calculation (Non-) (test code = 7441866083) mL/min/1.73m2 eGFR Calculation () (test code = 8546266313) mL/min/1.73m2 MARIA LUZ (test code = MARIA [...] imaging tests). Lab Interpretation (test code = 71875-7) Abnormal [facility]bergHepatic Function Panel (ALB, T.PRO, BILI T, BU/BC, ALT, AST, ALK PHOS)2020-04-08 04:28:00* Test Item Value Reference Range Interpretation Comme nts TOTAL BILI (test code = 3665021372) 0.6 mg/dL 0.1-1.1 BILI UNCON (test code = 7377937948) 0.6 mg/dL 0.1-1.1 BILI CONJ (test code = 7469505186) 0.0 mg/dL 0-0.3 T PROTEIN (test code = 0395492477) 10.4 g/dL 6.3-8.2 H ALBUMIN (test code = 1904465653) 5.8 g/dL 3.5-5 H ALK PHOS (test code = 2082751924) 104 U/L 34-122 ALTv (test code = 1742-6) 35 U/L 5-50 AST(SGOT) (test code = 6710254600) 41 U/L 13-40 H Lab Interpretation (test cod e = 42233-1) Abnormal [facility] KlebergLipase [id number] 04:28:00* Test Item Value Reference Range Interpretation Comme nts LIPASE (test code = 8815290160) 22 U/L 0-220 Lab Interpretation (test cod e = 01408-6) Normal [facility]bergCREATINE [id number] 04:27:00* Test Item Value Reference Range Interpretation Comme nts CK (test code = 3357910333) 440 U/L 33-194 H Lab Interpretation (test cod e = 13255-6) Abnormal [facility]bergCB WITH [id number] 04:16:00* Test Item Value Reference Range Interpretation [...] g/dL 31.2-35 H RDW-SD (test code = 64442-5) 44.6 fL 38.5-51.6 RDW-CV (test code = 788-0) 13.4 % 12.1-15.4 PLT (test code = 777-3) See_Comment [Automated message] The system which generated this result transmitted reference range: 150 - 328 10*3/?L. The reference range was not used to interpret this result as normal/abnormal. MPV (test code = 27311-8) 12.7 fL 9.8-13 NRBC/100 WBC (test code = 4295761875) See_Comment [Automated message] The system which generated this result transmitted reference range: 0.0 - 10.0 /100 WBCs. The reference range was not used to interpret this result as normal/abnormal. NRBC x10^3 (test code = 1433646178) <0.01 See_Comment [Automated message] The system which generated this result transmitted reference range: 10*3/?L. The reference range was not used to interpret this result as normal/abnormal. GRAN MAT (NEUT) % (test code = 770-8) 81.0 % IMM GRAN % (test code = 9793384720) 0.80 % LYMPH % (test code = 736-9) 14.8 % MONO % (test code = 5905-5) 2.9 % EOS % (test code = 713-8) 0.1 % BASO % (test code = 706-2) 0.4 % GRAN MAT x10^3(ANC) (test code = 3085931284) 12.79 10*3/uL 1.99-6.95 H IMM GRAN x10^3 (test code = 5422593603) 0.12 10*3/uL 0-0.06 H LYMPH x10^3 (test code = 731-0) 2.34 10*3/uL 1.09-3.23 MONO x10^3 (test code = 742-7) 0.46 10*3/uL 0.36-1.02 EOS x10^3 (test code = 711-2) <0.03 0.06-0.53 L BASO x10^3 (test code = 704-7) 0.06 10*3/uL 0.01-0.09 Lab Interpretation (test code = 87745-8) Abnormal [facility] - DRUG SCREEN [id number] 02:25:00* Test Item Value Reference Range Interpretation Comme nts BENZO U (test code = 9105011052) Negative Negative COMPA U (test code = 0891037009) Negative Negative AMPHET (test code = 0680655324) Negative Negative THC (test code = 1825268836) Negative Negative METHADONE (test code = 2646779279) Negative Negative Meth U (test code = 0855031214) Presumptive Positive Negative A OPIATES (test code = 4581843547) Negative Negative Cocaine Metabolite (test code = 7861580852) Presumptive Positive Negative A PROPOXY (test code = 8826631061) Negative Negative Tric U (test code = 9299059071) Negative Negative PCP (test code = 7165140714) Negative Negative OXYCOD (test code = 1565363000) Negative Negative MARIA LUZ (test code = [...] legal testing). Lab Interpretation (test code = 59531-4) [facility]normal [facility] KlebergUrinalysis2020-07-02 02:19:00* Test Item Value Reference Range Interpretation Comme nts APPEARANCE (test code = 3431003241) Cloudy Clear A COLOR (test code = 8192354732) Reyna Yellow A PH (test code = 8968625358) 4.8-8.0 SP GRAVITY (test code = 0990191702) 1.003-1.030 GLU U QUAL (test code = 6975898251) Normal Normal BLOOD (test code = 8475294627) Negative Negative INTERFERENCE FRO M ASCORBIC ACID MAY CAUSE FALSE NEGATIVE RESULT KETONES (test code = 1268986482) 5 mg/dL Negative A PROTEIN (test code = 2887-8) 100 mg/dL Negative A UROBILIN (test code = 2594918250) 2.0 mg/dL Normal A BILIRUBIN (test code = 9689360895) Negative Negative NITRITE (test code = 4284520347) Negative Negative [place] (test code = 2328524608) Negative Negative RBC/HPF (test code = 5811878250) <1 See_Comment [Automated messa ge] The system which generated this result transmitted reference range: 0 - 3 HPF. The reference range was not used to interpret this result as normal/abnormal. WBC/HPF (test code = 0412826601) See_Comment [Automated messa ge] The system which generated this result transmitted reference range: 0 - 5 HPF. The reference range was not used to interpret this result as normal/abnormal. BACTERIA (test code = 4309419447) Few Negative A MUCOUS (test code = [id number]) Moderate Negative LPF A SQ EPITH (test code = [id number]) HPF Lab Interpretation (test code = 36406-4) Abnormal [facility] Notes Date/Time Note Provider Source 2023-06-16 14:39:02 [id number]:39:02F ormatting of this note might be different [...] with steady gait, in no apparent distress. [id number] department MyqzUH4623-79-24I12:40:03[facility] [place] [id number] .[id number] for patient [id number] M Herrera RN[id number] 80YJEFYHYBCBZEDKHYIVBXNK7663-30-85 T14:40:031.2.840.809768.1.72.3.15| 1.2.840.322408.1.13.104.2.7.2.7278 [id number] Wilda Lomax RN [facility] 2023-06-16 14:09:01 0214-75-42Z86:09:01F ormatting of this note might be different from the original.Patient given water, tolerated well. 81196-4Hvphtrzvs department PkmmQC6140-92-80O44:09:18[facility] NoteTXT1.2.840.287675.1.13.104.2.7 .2.059299|[id number] for patient zxtz92116-8TetcKZPXEVDGHS[address]TXTX[address] 47OKYZNCTSOOVTOTKEQVLIMF0090-19-82 T14:09:181.2.840.925375.1.72.3.15| 1.2.840.054050.1.13.104.2.7.2.7278 [id number] [facility] 2023-06-16 11:03:50 5137-85-05E85:03:50F ormatting of this note might be different from the original.Report received from LULY Robledo 80567-0Eumwlerkm department NbegOI0144-13-14S46:04:30[facility] NoteTXT1.2.840.721695.1.13.104.2.7 .2.317708|[id number] for patient ymjf06071-6UdklNDUHCHXGEJ[address]TXTX[address] 47SNFWQYNEMUHAWKBJOPBALY8886-70-09 T11:04:301.2.840.369804.1.72.3.15| 1.2.840.179537.1.13.104.2.7.2.7278 [id number] [facility] 2023-06-16 07:43:30 1620-86-35D66:43:30F ormatting of this note might be different from the original.Pt c/o generalized abdominal pain accompanied by nausea that started 2 days ago. Was seen at [facility] yesterday for same complaint, given prescriptions but patient states that he did not take them. Reports no relief in symptoms. Received 4mg Zofran DIRECTOR OF MEDICAL REVIEW by EMS. 62793-0Uwtjcslsx department Triage vhjyOO1635-78-83X74:45:18[facility] department Triage noteTXT1.2.840.175679.1.13.104.2.7 .2.954206|[id number] for patient ezvq10527-9Fwfylmvqm department [id number] N Dewoody RN[address]TXTX[address] 63KTNAKLDVHCGIXDWFKRZQDD2968-00-24 T07:45:181.2.840.592417.1.72.3.15| 1.2.840.316073.1.13.104.2.7.2.7278 [id number] Madeleine Mullen RN [facility] 2023-06-14 21:17:00 [id number]- 07T21:17:00 [facility] ([facility])EMERGENCY PROVIDER REPORTREPORT#:[id number] REPORT STATUS: SignedDATE:06/14/23 TIME:2116 PATIENT: BRUCE OSWALD UNIT #: [id number]#: [id number] ROOM/BED:: 81 AGE: 43 SEX: M PCP [...] Not Present PERC: Age >= 50HR >= 807EiR2 < 95%Unilateral Leg SwellingHemoptysisRecent Trauma/SurgeryPrior PE/DVTHormone Use [...] Early Discharge in Acute Chest Pain from knowNormal on 06/14/2023 All calculations should be rechecked [...] X1ED STA 06/14 2254 DC IV 06/14 235 Sodium Chloride 1,000 ML X1ED STA 06/14 2120 DC / IV 06/14 2220 212 Gastrointestinal Drugs Sig/Sugey [...] Dehydration, Generalized abdominal pain, VomitingTime of Impression 43 Disposition DecisionDischarge )( Discharged to Home Yes [...] the earliest appointment for: Dr Jet Ferrer[address] [place], [place] [address]Jupgy: [email or web address] Return within 24-36 hrs if you have worsening abdominal pain, vomiting. at 0048 RPT #: [id number] OF REPORTEDEmergency department bnzdhy3607-50-71A43:17:00L.TEDJ789 77130-6404DRVnlsplkla for patient jsghFLUZUJCBXVHPNG7772-91-86R33:48 :47 [facility] 2023-05-01 06:10:19 2515-57-00C32:10:19F ormatting of this note might be different [...] w/d, pt leaving in no apparent distress, 03164-6Vfnlweunl department VzrhYC4232-15-67S16:13:[address] [address] [facility] department NoteTXT1.2.840.737193.1.13.104.2.7 .2.906935|[id number] for patient [address]GalvestonTXTX[address] 75YNVNHOSIXIXHNJGSZXWALF3458-50-49 T06:13:591.2.840.441177.1.72.3.15| 1.2.840.244429.1.13.104.2.7.2.7278 [id number] [facility] 2023-05-01 03:46:44 3658-19-46P85:46:44F ormatting of this note might be different [...] ext without difficulty, amb with steady gait 45490-7Zhzxkifhu department Triage mdflBR8401-00-47R07:48:45[facility] department Triage noteTXT1.2.840.495060.1.13.104.2.7 .2.727293|[id number] for patient [address]onGalvestonTXTX[address] 20LWUSDISFOSKLSYYJWLBJSC8234-21-25 T03:48:451.2.840.930373.1.72.3.15| 1.2.840.710052.1.13.104.2.7.2.7278 [id number] [facility] 2023-05-01 03:43:00 7882-92-50E83:43:00F ormatting of this note is different from the original.[facility] Emergency Department NotePatient Name: Bruce OswaldDate of : 1980 42 year old maleTreatment Room: [place] [address]Medical Record Number: [id number] Care Physician: PATIENT DOES NOT HAVE A PCPPatient Escorted by: Self [9]Mode of Arrival: Personal means [1]EMS Treatment Prior to ED Arrival:DIRECTOR OF MEDICAL REVIEW treatment: None Travel and Exposure Screening:SymptomsDoes patient [...] mild swelling to face,History provided by: PatientLanguage drawbridge tender used: No Dental ProblemLocation: Upper and lowerLower [...] MD -- ED COURSEDiagnosis/Impression as of 05/01/23 0558 Toothache Procedures: ProceduresMDM:Medical Decision MakingBruce Oswald is [...] Courtney MD05/01/23 0558 Milagros Courtney MD05/01/23 0558 16985-6Ywxedwltb Emergency department MzksNM3106-75-78M21:58:50Physician Emergency department NoteTXT1.2.840.101091.1.13.104.2.7 .2.436507|[id number] for patient [id number] 68FENCNBGJRMAAXUCDOICEKX2717-75-96 T05:58:501.2.840.998379.1.72.3.15| 1.2.840.819248.1.13.104.2.7.2.7278 [id number] [facility]
[2023-09-18] MEDS ORDERED: ONDANSETRON 4 MG/2 ML VIAL ONE (21:49)
[2023-09-18] MEDS ORDERED: LORazepam 2 MG/ML VIAL ONE (21:49)
[2023-09-18] MEDS ORDERED: NA CHLORIDE 0.9% 2,000 ML ONE (21:50)
[2023-09-18 21:58] LABS: Absolute Lymphocytes (CBC) 4.2 K/uL (0.7-4.9); Hematocrit 46.8 % (39.6-49.0); Lymphocytes % 40.8 % (15.3-44.8); MPV 9.2 fL (7.6-11.3); Platelets 138 thou/uL (152-406); RBC Red Blood Cell Count 4.93 M/uL (4.33-5.43)
[2023-09-18 22:26] LABS: Protime INR 1.11
[2023-09-18 22:42] LABS: ALT/SGPT 46 U/L (16-61); AST/SGOT 33 U/L (15-37); Albumin 3.8 g/dL (3.4-5.0); Alkaline Phosphatase 84 U/L (45-117); BUN Blood Urea Nitrogen 12 mg/dL (7-18); Bicarbonate 19 mEq/L (21-32); Bilirubin Direct 0.1 mg/dL (0-0.2); Bilirubin Indirect, Calculated 0.1 mg/dL (0.2-0.8); Bilirubin Total 0.2 mg/dL (0.2-1.0); Glomerular Filtration Rate 87 ml/min (=/>90); Glucose Level 114 mg/dL (74-106); Potassium 3.5 mEq/L (3.5-5.1); Protein, Total 7.8 g/dL (6.4-8.2); Sodium Level 141 mEq/L (136-145)
[2023-09-19 00:14] LABS: Urine Bacteria None Seen /HPF (<20); Urine Bilirubin NEGATIVE (Negative); Urine Blood Negative (Negative); Urine Clarity Clear (Clear); Urine Color Yellow (Yellow); Urine Glucose NEGATIVE (Negative); Urine Mucus 2+ /HPF (None Seen); Urine Protein 1+ (Negative); Urine RBC <5 /HPF (None Seen); Urine Urobilinogen Normal (Normal); Urine pH 5.5 (5.0-7.0)
[2023-09-19 00:50] LABS: Barbiturates NEGATIVE (NEGATIVE); Benzodiazepines NEGATIVE (NEGATIVE); Cocaine POSITIVE (NEGATIVE); METHAMPHETAM NEGATIVE (NEGATIVE); Methadone NEGATIVE (NEGATIVE); Opiates NEGATIVE (NEGATIVE); Phencyclidine NEGATIVE (NEGATIVE); THC Cannibis NEGATIVE (NEGATIVE)
--- NOTE | 2023-09-19 00:57 | ER ---
Nurse's Notes [facility] Name: Bruce Oswald Age: 43 yrs Sex: Male : 1980 Arrival Date: 09/18/2023 Time: 21:18 Bed 14 Private MD: Diagnosis: Cocaine abuse with cocaine-induced anxiety disorder;Abdominal pain, unspecified Presentation: 09/18 21:21 Chief complaint: Patient states: lower abdominal pain of 7 with nausea,onset 1930 and pf1 diarrhea,onset today. Patient stated it feels like he is having hunger pains and the last thing he ate was a burrito yesterday. 21:21 Coronavirus screen: Client denies travel out of the [place] in the last 14 days. Client pf1 presents with at least one sign or symptom that may indicate coronavirus-19. Ebola Screen: Patient negative for fever greater than or equal to 101.5 degrees Fahrenheit, and additional compatible Ebola Virus Disease symptoms. Initial Sepsis Screen: Does the patient meet any 2 criteria? No. Patient's initial sepsis screen is negative. Does the patient have a suspected source of infection? No. Patient's initial sepsis screen is negative. Risk Assessment: Do you want to hurt yourself or someone else? Patient reports no desire to harm self or others. 21:21 Method Of Arrival: EMS: [facility] pf1 21:21 Acuity: ZENON 3 pf1 21:23 Note Patient stated had a couple of beers today. pf1 21:25 Note Patient stated is currently out of his BP medication,unknown name. 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 21:50 Onset of symptoms was September 18, 2023. jw7 Historical: - Allergies: 21:36 NKDA; pf1 - PMHx: 21:36 Asthma; Back pain; Hypertension; Anxiety; pf1 - PSHx: 21:36 None; pf1 - Immunization history:: Adult Immunizations up to date, 3 doses of Covid-19 vaccines Last tetanus immunization: < 5 years ago Flu vaccine is not up to date. - Social history:: Smoking status: Patient denies any tobacco usage or history of. Patient uses alcohol, Patient/guardian denies using street drugs. - Family history:: not pertinent. Screenin:38 [facility] ED Fall Risk Assessment (Adult) History of falling in the last 3 months, pf1 including since admission No falls in past 3 months (0 pts) Confusion or Disorientation No (0 pts) Intoxicated or Sedated No (0 pts) Impaired Gait No (0 pts) Mobility Assist Device Used No (0 pt) Altered Elimination No (0 pt) Score/Fall Risk Level 0 - 2 = Low Risk Oriented to surroundings, Maintained a safe environment, Educated pt \T\ family on fall prevention, incl call for assistance when getting out of bed, Assessed \T\ reinforced patient's understanding of fall precautions, Provided non-skid footwear, Hourly rounding (assess needs \T\ fall precautionary measures) done, Used ambulatory aids as needed (educated on \T\ assisted with), Used gait belt as appropriate. Abuse screen: Denies threats or abuse. Nutritional screening: No deficits noted. Tuberculosis screening: No symptoms or risk factors identified. Assessment: 21:47 General: Appears in no apparent distress. uncomfortable, Behavior is calm, cooperative, jw7 anxious. Pain: Complains of pain in abdomen Pain does not radiate. Pain currently is 6 out of 10 on a pain scale. Quality of pain is described as sharp, Pain began suddenly, Is continuous. Neuro: Meneses Agitation-Sedation Scale (RASS): 0 - Alert and Calm Level of Consciousness is awake, alert, obeys commands, Oriented to person, place, time. Cardiovascular: Capillary refill < 3 seconds Clubbing of nail beds is absent JVD is absent Patient's skin is warm and dry. Respiratory: Airway is patent Trachea midline Respiratory effort is even, unlabored, Respiratory pattern is regular, symmetrical. GI: Abdomen is flat, non-distended, Bowel sounds present X 4 quads. Abd is soft Abdomen is tender to palpation. : No deficits noted. No signs and/or symptoms were reported regarding the genitourinary system. EENT: No deficits noted. No signs and/or symptoms were reported regarding the EENT system. Derm: No deficits noted. No signs and/or symptoms reported regarding the dermatologic system. Musculoskeletal: No deficits noted. No signs and/or symptoms reported regarding the musculoskeletal system. 21:58 General: Pt denies suicidal ideation/thoughts.. jw7 23:10 Reassessment: Patient appears in no apparent distress at this time. Patient and/or tm6 family updated on plan of care and expected duration. Pain level reassessed. Patient is alert, oriented x 3, equal unlabored respirations, skin warm/dry/pink. 09/19 00:16 Reassessment: Patient appears in no apparent distress at this time. Patient and/or pf1 family updated on plan of care and expected duration. Pain level reassessed. Patient is alert, oriented x 3, equal unlabored respirations, skin warm/dry/pink. Patient states feeling better. Patient states symptoms have improved. 00:50 Reassessment: Patient appears in no apparent distress at this time. No changes from tm6 previously documented assessment. 00:58 Reassessment: patient provided with snack. tm6 Vital Signs: 09/18 21:21 BP 170 / 128; Pulse 65; Resp 16; Temp 98.2; Pulse Ox 100% on R/A; Weight 68.04 kg; pf1 Height 5 ft. 9 in. ; Pain 7/10; 22:00 BP 163 / 78; Pulse 84; Resp 20 S; Pulse Ox 100% on R/A; jw7 23:10 BP 108 / 78; Pulse 92; Resp 16; Pulse Ox 100% ; Pain 0/10; tm6 09/19 00:00 BP 122 / 80; Pulse 77; Resp 16; Pulse Ox 100% on R/A; pf1 00:49 BP 130 / 80; Pulse 74; Pulse Ox 100% ; Pain 0/10; tm6 09/18 21:21 Body Mass Index 22.15 (68.04 kg, 175.26 cm) pf1 09/18 21:21 Pain Scale: Adult pf1 23:10 Pain Scale: Adult tm6 00:49 Pain Scale: Adult tm6 ED Course: 09/18 21:21 Patient arrived in ED. jj6 21:23 Nik Brambila MD is Attending Physician. sp4 21:30 Alee South RN is Primary Nurse. jw7 21:30 No provider procedures requiring assistance completed. Inserted saline lock: 20 gauge pf1 in right antecubital area, using aseptic technique. Blood collected. 21:36 Triage completed. pf1 21:47 Patient has correct armband on for positive identification. Bed in low position. Call jw7 light in reach. 21:47 Arm band placed on right wrist. tm6 23:12 Provided Education on: VS monitoring. Client placed on continuous cardiac and pulse tm6 oximetry monitoring. NIBP monitoring applied. Door closed. Noise minimized. Lights dimmed. Warm blanket given. 23:56 Urinalysis w/ reflexes Sent. pf1 23:56 Urine Drug Screen Sent. pf1 09/19 01:06 IV discontinued, intact, bleeding controlled, No redness/swelling at site. Pressure tm6 dressing applied. Administered Medications: 09/18 21:47 Drug: Ativan IVP 2 mg IVP once Route: IVP; Site: right antecubital; [facility] 22:40 Follow up: Response: No adverse reaction; Marked relief of symptoms pf1 21:47 Drug: Ondansetron IVP 4 mg IVP once; over 2 minutes Route: IVP; Site: right antecubital;[facility] 22:40 Follow up: Response: No adverse reaction; Marked relief of symptoms pf1 21:47 Drug: NS 0.9% IV 1000 ml IV at 125 ml/hr continuous Route: IV; Rate: 125 ml/hr; Site: [facility] right antecubital; 22:40 Follow up: Response: No adverse reaction pf1 21:47 Drug: NS 0.9% IV 1000 ml IV at 1 bolus Per protocol; 1000 mL bolus Route: IV; Rate: 1 jw7 bolus; Site: right antecubital; 23:00 Follow up: Response: No adverse reaction; Marked relief of symptoms; IV Status: pf1 Completed infusion; IV Intake: 1000ml Medication: 09/19 01:06 VIS not applicable for this client. tm6 Intake: 09/18 23:00 IV: 1000ml; Total: 1000ml. pf1 Outcome: 09/19 00:57 Discharge ordered by . [email or web address] 01:05 Discharged to home ambulatory, tm6 01:05 Condition: stable 01:05 Discharge instructions given to patient, Instructed on discharge instructions, Demonstrated understanding of instructions, 01:07 Patient left the ED. tm6 Signatures: Jodee ChristiansonjAlee Ramirez RN RN jw7 Yancy Jimenez RN RN pf1 Nik Brambila MD MD sp4 Arian Hopson RN RN tm6
--- NOTE | 2023-09-19 00:58 | EDPHYS ---
Physician Documentation [facility] Name: Bruce Oswald Age: 43 yrs Sex: Male : 1980 Arrival Date: 09/18/2023 Time: 21:18 Bed 14 Private MD: ED Physician Nik Brambila HPI: 09/18 21:25 This 43 yrs old Black Male presents to ER via Unassigned with complaints of Abdominal sp4 Pain. 21:27 43-year-old male presents with primary complaint of diffuse abdominal pain associated sp4 with nausea. EMS reported patient has called them and he was found laying on the floor and multiple layers of clothing. Patient has history of cocaine abuse. Patient on arrival states he has diffuse abdominal pain and he is also hungry. Patient appears restless and also hypertensive on arrival. . Historical: - Allergies: 21:36 NKDA; pf1 - PMHx: 21:36 Asthma; Back pain; Hypertension; Anxiety; pf1 - PSHx: 21:36 None; pf1 - Immunization history:: Adult Immunizations up to date, 3 doses of Covid-19 vaccines Last tetanus immunization: < 5 years ago Flu vaccine is not up to date. - Social history:: Smoking status: Patient denies any tobacco usage or history of. Patient uses alcohol, Patient/guardian denies using street drugs. - Family history:: not pertinent. ROS: 21:27 Constitutional: Negative for fever, chills, and weight loss, positive abdominal pain sp4 positive nausea 21:27 All other systems are negative, Exam: 21:27 Constitutional: This is a well developed, well nourished patient who is awake, alert, sp4 patient appears restless and also evasive with respect to his medical history. Uncomfortable appearing patient Head/Face: Normocephalic, atraumatic. Eyes: Pupils equal round and reactive to light, extra-ocular motions intact. Lids and lashes normal. Conjunctiva and sclera are not injected. Cornea within normal limits. Periorbital areas with no swelling, redness, or edema. ENT: Nares patent. No nasal discharge, no septal abnormalities noted. Tympanic membranes are normal and external auditory canals are clear. Oropharynx with no redness, swelling, or masses, exudates, or evidence of obstruction, uvula midline. Mucous membranes moist. Neck: Trachea midline, no thyromegaly or masses palpated, and no cervical lymphadenopathy. Supple, full range of motion without nuchal rigidity, or vertebral point tenderness. Chest/axilla: Normal chest wall appearance and motion. Nontender with no deformity. No lesions are appreciated. Cardiovascular: Regular rate and rhythm with a normal S1 and S2. No gallops, murmurs, or rubs. Normal PMI, no JVD. No pulse deficits. Respiratory: Lungs have equal breath sounds bilaterally, clear to auscultation and percussion. No rales, rhonchi or wheezes noted. No increased work of breathing, no retractions or nasal flaring. Abdomen/GI: Soft, non-tender, with normal bowel sounds. No distension or tympany. No guarding or rebound. No evidence of tenderness throughout. Back: No spinal tenderness. No costovertebral tenderness. Male : Normal genitalia with no discharge or lesions. Skin: Warm, dry with normal turgor. Normal color with no rashes, no lesions, and no evidence of cellulitis. MS/ Extremity: Pulses equal, no cyanosis. Neurovascular intact. Full, normal range of motion. Neuro: Awake and alert, GCS 15, oriented to person, place, time, and situation. Cranial nerves II-XII grossly intact. Motor strength 5/5 in all extremities. Sensory grossly intact. Psych: Awake, alert, with orientation to person, place and time. Behavior, mood, and affect are within normal limits 22:07 ECG was reviewed by the Attending Physician. EKG at 2150 EKG reveals normal sinus sp4 rhythm at rate of 66, no ST elevation or depression. No ectopy Vital Signs: 21:21 BP 170 / 128; Pulse 65; Resp 16; Temp 98.2; Pulse Ox 100% on R/A; Weight 68.04 kg; pf1 Height 5 ft. 9 in. ; Pain 7/10; 22:00 BP 163 / 78; Pulse 84; Resp 20 S; Pulse Ox 100% on R/A; jw7 23:10 BP 108 / 78; Pulse 92; Resp 16; Pulse Ox 100% ; Pain 0/10; tm6 12/13 00:00 BP 122 / 80; Pulse 77; Resp 16; Pulse Ox 100% on R/A; pf1 00:49 BP 130 / 80; Pulse 74; Pulse Ox 100% ; Pain 0/10; tm6 09/18 21:21 Body Mass Index 22.15 (68.04 kg, 175.26 cm) pf1 09/18 21:21 Pain Scale: Adult pf1 23:10 Pain Scale: Adult tm6 00:49 Pain Scale: Adult tm6 MDM: 09/18 22:06 Patient medically screened. [facility] 09/19 00:56 Differential Diagnosis altered mental status, sepsis, flu. Data reviewed: vital signs, 4 nurses notes, EMS record, old medical records, lab test result(s), EKG. Consideration of Admission/Observation Escalation of care including admission/observation considered. ED course: Tested positive for cocaine which explains unusual restlessness. Will advise patient to discontinue use of dangerous substance.. 09/18 21:24 Order name: Acetaminophen; Complete Time: 23:53 4 09/18 21:24 Order name: Basic Metabolic Panel; Complete Time: 23:53 [facility] 09/18 21:24 Order name: CBC with Diff; Complete Time: 23:53 [facility] 09/18 21:24 Order name: ETOH Level; Complete Time: 23:53 [facility] 09/18 21:24 Order name: Hepatic Function; Complete Time: 23:53 [facility] 09/18 21:24 Order name: PT-INR; Complete Time: 23:53 [facility] 09/18 21:24 Order name: Ptt, Activated; Complete Time: 23:53 4 09/18 21:24 Order name: Salicylate; Complete Time: 23:53 [facility] 09/18 21:24 Order name: Urinalysis w/ reflexes; Complete Time: 00:52 [facility] 09/18 21:24 Order name: Urine Drug Screen; Complete Time: 00:52 [facility] 09/18 21:24 Order name: EKG; Complete Time: 21:25 [facility] 09/18 21:24 Order name: EKG - Nurse/Tech; Complete Time: 21:47 [facility] 09/18 21:24 Order name: IV Saline Lock; Complete Time: 21:31 4 09/18 21:24 Order name: Labs collected and sent; Complete Time: 21:31 [facility] 09/18 21:24 Order name: Suicide Screening ([place]); Complete Time: 21:47 4 EC/12 22:07 Rate is 66 beats/min. Rhythm is regular, Normal Sinus Rhythm. QRS [place] is Normal. [place] sp4 interval is normal. QRS interval is normal. QT interval is prolonged. No Q waves. T waves are Normal. No ST changes noted. Clinical impression: No evidence of ischemia. Interpreted by me. Reviewed by me. Administered Medications: 21:47 Drug: Ativan IVP 2 mg IVP once Route: IVP; Site: right antecubital; [facility] 22:40 Follow up: Response: No adverse reaction; Marked relief of symptoms pf1 21:47 Drug: Ondansetron IVP 4 mg IVP once; over 2 minutes Route: IVP; Site: right antecubital;[facility] 22:40 Follow up: Response: No adverse reaction; Marked relief of symptoms pf1 21:47 Drug: NS 0.9% IV 1000 ml IV at 125 ml/hr continuous Route: IV; Rate: 125 ml/hr; Site: [facility] right antecubital; 22:40 Follow up: Response: No adverse reaction pf1 21:47 Drug: NS 0.9% IV 1000 ml IV at 1 bolus Per protocol; 1000 mL bolus Route: IV; Rate: 1 jw7 bolus; Site: right antecubital; 23:00 Follow up: Response: No adverse reaction; Marked relief of symptoms; IV Status: pf1 Completed infusion; IV Intake: 1000ml Disposition Summary: 09/19/23 00:57 Discharge Ordered Notes: Please discontinue use of cocaine Location: Home sp4 Problem: new sp4 Symptoms: have improved sp4 Condition: Stable sp4 Diagnosis - Cocaine abuse with cocaine-induced anxiety disorder sp4 - Abdominal pain, unspecified sp4 Followup: sp4 - With: Private Physician - When: 7 - 10 days - Reason: Recheck today's complaints Discharge Instructions: - Discharge Summary Sheet sp4 - Cocaine Use Disorder sp4 Forms: - Patient Portal Instructions sp4 Signatures: Dispatcher [employer] Alee Ndiaye RN RN jw7 Yancy Jimenez RN RN pf1 Nik Brambila MD MD sp4
[2023-09-19 02:22] VITALS: TEMP 98.2; O2SAT 100
[2023-09-19 02:35] VITALS: BP 130/80
--- NOTE | 2023-09-19 13:04 | EKG ---
Test Date: 2023-09-18 Test Time: 21:50:11 Financial Legal Assistant: ERICK MEASUREMENT RESULTS: Intervals: Rate: 66 NM: 150 QRSD: 100 QT: 448 QTc: 469 [place]: P: 75 NM: 150 QRS: 90 T: 55 INTERPRETIVE STATEMENTS: Normal sinus rhythm Voltage criteria for left ventricular hypertrophy Prolonged QT Abnormal ECG Compared to ECG 09/16/2023 22:22:58 Left ventricular hypertrophy now present Prolonged QT interval now present Electronically Signed On 09-19-23 13:03:39 SECURITY MANAGER by Jhon Mcgarry
== END 2023-09-19 01:07 | disposition home or self-care (01) ==
LOC: ER 21:18
DX: F14.180 Cocaine abuse with cocaine-induced anxiety disorder (principal); R10.9 Unspecified abdominal pain; I10 Essential (primary) hypertension
CPT/HCPCS: 93005; 85025; 81001; 80048; 36415; 85610; 80076; 85730; 80307; 80143; 80179; 82077; J2405; J7030

== ENCOUNTER → 2023-10-13 | Emergency (ER) | payer OTHER ==
--- OUTSIDE RECORDS SUMMARY | 2023-10-13 15:10 | XMS REPORT | Continuity of Care Document ---
Author Name Unknown Address [address] [facility] [address] [place] [address] [facility] Address [address] [facility] [address] [place] [address] Care Team Providers Care Adjuster Electrical Contacts Name Role Phone Allen Courtney MD Attending Clinician [phone] Deepak Weber MD Attending Clinician [phone] Sarah Ramos Attending Clinician Keena JEROME, Yancy Murguia Attending Clinician [phone] Paulino ROSALES, Mike Attending Clinician [phone] Deepak Weber MD Admitting Clinician [phone] Mike Bob MD Admitting Clinician [phone] Encounters Start Date/Time End Date/Time Encounter Type Admission Type Attending Clinicians Care Facility Care Department Encounter ID Source 2020-04-17 06:30:30 2020-04-18 11:35:00 Emergency Allen Courtney Yaman [facility] [id number] [id number] 2020-04-14 00:00:00 2020-04-14 00:00:00 Telephone Sarah Ramos [facility] [id number] 4.2.7.2.686 [id number] 2020-04-07 19:37:02 2020-04-09 10:30:00 Emergency Yancy Brink Vladimir [facility] [id number] 4.2.7.2.686 [id number]
--- NOTE | 2023-10-13 15:47 | ER ---
Nurse's Notes [facility] Name: Bruce Oswald Age: 43 yrs Sex: Male : 1980 Arrival Date: 10/13/2023 Time: 15:07 Bed IW10 Private MD: Diagnosis: Did not want to be seen Presentation: 10/13 15:42 Note Pt brought into triage and pt states, "I don't want to be seen. I want to go to [address] I already called my ride." respirations even and unlabored. PT A\\T\\O4. ED Course: 15:11 Patient arrived in ED. mg5 15:21 Shay Dunn MD is Attending Physician. ec2 Administered Medications: No medications were administered Outcome: 15:47 Patient left the ED. [facility] Signatures: Ruthy Rogers RN RN 10 Rhiannon Grant mg5 Shay Dunn MD MD ec2
--- NOTE | 2023-10-13 15:47 | EDPHYS ---
Physician Documentation [facility] Name: Bruce Oswald Age: 43 yrs Sex: Male : 1980 Arrival Date: 10/13/2023 Time: 15:07 Bed [id number] Private MD: Shay Pandya HPI: 10/13 15:44 This 43 yrs old Black Male presents to ER via Unassigned with complaints of Flu ec2 Symptoms, Shortness Of Breath. 15:44 Patient did not want to be seen, patient was brought in by EMS, states that he did not ec2 want to be brought to this hospital and does not want to be seen.. ROS: 15:47 Constitutional: Did not see ec2 Exam: 15:47 Constitutional: did not see ec2 MDM: 15:47 Medical screening is not applicable. ec2 15:47 Data reviewed: nurses notes. ec2 Administered Medications: No medications were administered Disposition Summary: 10/13/23 15:47 Eloped Notes: Disposition: before being seen by provider ec2 Reason: other ec2 Condition: Undetermined ec2 Diagnosis - Did not want to be seen ec2 Followup: ec2 - With: Private Physician - When: - Reason: Recheck today's complaints Signatures: Shay Dunn MD MD ec2
== END ==
LOC: ER 15:07
DX: Z02.9 Encounter for administrative examinations, unspecified (principal)

== ENCOUNTER → 2023-11-05 | Emergency (ER) | payer OTHER ==
[~2023-11-05] MED LIST: ACETAMINOPHEN 325 MG TABLET PO PRN; CLINDAMYCIN 600MG/D5W 50 ML IV SCH; ENOXAPARIN 40 MG/0.4 ML SQ SCH; NA CHLORIDE 0.9% 1,000 ML IV SCH; ONDANSETRON 4 MG/2 ML VIAL IV PRN
--- OUTSIDE RECORDS SUMMARY | 2023-11-05 15:21 | XMS REPORT | Continuity of Care Document ---
Author Name Unknown Address [address] [facility] [address] [place] [address] [facility] Address [address] [facility]. [address] [place] [address] Care Team Providers Care Resume Writer Name Role Phone PCP, PATIENT DOES NOT HAVE A Primary Care Physic nadiya Unavailable FABIAN LAWRENCE Attending Clinician Unavailable FABIAN LAWRENCE Attending Clinician Unavailable MILAGROS COURTNEY Attending Clinician Unavailable Milagros Courtney MD Attending Clinician [phone] OSITO HILLMAN Attending Clinician Unavailable Osito Hillman MD Attending Clinician [phone] Jcarlos Mora Attending Clinician Unavailable RAMIRO TIPTON Attending Clinician Unavailable Ramiro Steiner S Attending Clinician [phone] YANCY CRUMP Attending Clinician Unavailable Yancy Crump NP Attending Clinician [phone] MURTAZA RAMIREZ Attending Clinician Unavailable Emily Watt MD Attending Clinician + [phone] Murtaza Ramirez DO Attending Clinician [phone] HARSHAD LOWE Attending Clinician Unavailable Harshad Morales Attending Clinician [phone] KENIA ALCALA Attending Clinician Unavailab Kenia Santos DO Attending Clinician + [phone] SMILEY WELCH Attending Clinician Unavailable Smiley Welch MD Attending Clinician [phone] Deepak Weber MD Attending Clinician [phone] Sarah Ramos Attending Clinician [phone] Mike Bob MD Attending Clinician [phone] FABIAN LAWRENCE Admitting Clinician Unavailable MILAGROS COURTNEY Admitting Clinician Unavailable OSITO HILLMAN Admitting Clinician Unavailable Physician, No Primary or Family Admitting Clinic nadiya Unavailable EMILY WATT Admitting Clinician Unavailab HARSHAD Arzola Admitting Clinician Unavailable Deepak Weber MD Admitting Clinician [phone] Mike Bob MD Admitting Clinician [phone] Payers Payer Name Policy Type Policy Number Effective Date Expirati on Date Source MEDICARE OBS/INPT PART A ONLY [id number] 2004 00:00:00 [employer]IV[employer] COMM [id number] 2023 00:00:00 MEDICAID SSI PENDING PENDING 2023 00:00:00 2023 00:00:00 Problems Condition Name Condition Details Condition Category Status Onset Date Resolution Date Last Treatment Date Treating Clinician Comments Source Intractabl e vomiting with nausea Intractabl e vomiting with nausea Disease Active 04-17 00:00: 00 [facility] Essential hypertensi on Essential hypertensi on Disease Active 04-17 00:00: 00 [facility] Troponin I above reference range Troponin I above reference range Disease Active 04-17 00:00: 00 [facility] CAESAR (acute kidney injury) CAESAR (acute kidney injury) Disease Active 04-08 00:00: 00 [facility] Allergies, Adverse Reactions, Alerts Allergy Name Allergy Type Status Severity Reaction(s) Onset Date Inactive Date Treating Clinician Comments Source No Known Allergie s DA Active U 06-14 00:00: 00 [facility] NO KNOWN ALLERGIE S Drug Class Active [facility] Social History Social Habit Start Date Stop Date Quantity Comments Source History of tobacco use Smokes tobacco daily [facility] History of Social function 2023-10-15 00:00:00 2023-10-15 00:00:00 [facility] Exposure to SARS-CoV-2 (event) 2023-01-30 00:00:00 2023-02-09 20:59:00 Not sure [facility] Tobacco use and exposure 2020-04-08 00:00:00 2020-04-08 00:00:00 Smokeless tobacco non-user [facility] Sex Assigned At 1980 00:00:00 1980 00:00:00 [facility] Smoking Status Start Date Stop Date Source Smokes tobacco daily 2020-04-08 00:00:00 [facility] Medications Ordered Medication Name Filled Medication Name Start Date Stop Date Current Medication? Ordering Clinician Indication Dosage Frequency Signature (SIG) Comments Components Source iopamidol (ISOVUE 370-500 mL) injection 90 mL 10-15 20:15: 00 10-15 20:15 :00 No [id number] 90mL 90 mL, Intravenou s, ONCE, 1 dose, On Sun10/15/23 at 1415, Routine [facility] KCL (KLOR-CON M20) tablet 40 mEq 10-15 19:30: 00 10-15 19:26 :00 No 40meq 40 mEq, Oral, ONCE, 1 dose, On Sun10/15/23 at 1330, JUNE [facility] ketorolac (TORADOL) injection 30 mg 10-15 19:15: 00 10-15 19:30 :00 No 30mg 30 mg, Slow IV Push, ONCE, 1 dose, On Sun10/15/23 at 1315, Routine [facility] NaCl 0.9% (NS) bolus infusion 1,000 mL 10-15 19:15: 00 10-15 21:07 :00 No 1000mL at 999 mL/hr, 1,000 mL, IV Infusion, ONCE, 1 dose, On Sun10/15/23 at 1315, [facility] pantoprazol e (PROTONIX) injection 40 mg 10-15 18:30: 00 10-15 19:31 :00 No 40mg 40 mg, Slow IV Push, ONCE, 1 dose, On Sun10/15/23 at 1230 [facility] ondansetron (ZOFRAN (PF)) injection 4 mg 10-15 18:30: 00 10-15 19:31 :00 No 4mg 4 mg, Slow IV Push, ONCE, 1 dose, On Sun10/15/23 at 1230, [facility] hydralAZINE (APRESOLINE ) injection 10 mg 10-15 05:15: 00 10-15 05:04 :00 No 10mg 10 mg, Slow IV Push, ONCE, 1 dose, On Sun10/14/23 at 2315, [facility] hydralAZINE (APRESOLINE ) injection 10 mg 08 04:00: 00 10-15 03:53 :00 No 10mg 10 mg, Slow IV Push, ONCE, 1 dose, On Sun10/14/23 at 2200, [facility] ondansetron (ZOFRAN (PF)) injection 4 mg 10-15 02:45: 00 10-15 02:49 :00 No 4mg 4 mg, Slow IV Push, ONCE, 1 dose, On Sun10/14/23 at 2045, [facility] hydrALAZINE 10 mg tablet 2023-10-15 00:00: 00 Yes [id number] 10mg Take 1 tablet by mouth in the morning and 1 tablet at noon and 1 tablet in the evening. [facility] hydrALAZINE 10 mg tablet 2023-10-15 00:00: 00 Yes [id number] 10mg Take 1 tablet by mouth in the morning and 1 tablet at noon and 1 tablet in the evening. [facility] ondansetron 4 mg disintegrat ing tablet 10-15 00:00: 00 Yes [id number] 4mg Take 1 tablet by mouth every 8 (eight) hours as needed for Nausea and Vomiting (N/V) for up to 10 doses. [facility] albuterol 90 mcg/actuati on inhaler 10-15 00:00: 00 Yes [id number] 2{puff} Inhale 2 Puffs every 4 (four) hours as needed for Wheezing or Shortness of Breath. [facility] ibuprofen (IBU) tablet 600 mg 06-16 18:30: 00 06-16 18:40 :00 No 600mg 600 mg, Oral, ONCE, 1 dose, [facility]30[facility] 650 mg 06-16 17:45: 00 06-16 17:47 :00 No 650mg 650 mg, Oral, ONCE, 1 dose, On 06/16/23 at 1245, [facility] cloNIDine (CATAPRES) tablet 0.1 mg 06-16 17:45: 00 06-16 17:48 :00 No .1mg 0.1 mg, Oral, ONCE, 1 dose, On 06/16/23 at 1245, STAT [facility] iopamidol (ISOVUE 370-500 mL) injection 90 mL 06-16 14:20: 00 06-16 14:45 :00 No [id number] 90mL 90 mL, Intravenou s, ONCE, 1 dose, On 06/16/23 at 0945, Routine [facility] haloperidol lactate (HALDOL) injection 2.5 mg 06-16 14:15: 00 06-16 14:17 :00 No 2.5mg 2.5 mg, Intravenou s, ONCE, 1 dose, On 06/16/23 at 0915, STAT [facility] NaCl 0.9% (NS) bolus infusion 1,000 mL 06-16 13:45: 00 2023- 09-09 17:38 :00 No 1000mL at 999 mL/hr, 1,000 mL, IV Infusion, ONCE, 1 dose, On 06/16/23 at 0845, JUNE [facility] amoxicillin 500 mg capsule 2022-0 -25 00:00: 00 Yes [id number] 500mg Take 1 capsule by mouth in the morning and 1 capsule at noon and 1 capsule in the evening. [facility] ibuprofen 800 mg tablet 2022-0 7-25 00:00: 00 Yes [id number] 800mg Take 1 tablet by mouth every 6 (six) hours as needed for Pain (scale 4-6). [facility] amoxicillin 500 mg capsule 2022-0 7-25 00:00: 00 Yes [id number] 500mg Take 1 capsule by mouth in the morning and 1 capsule at noon and 1 capsule in the evening. [facility] ibuprofen 800 mg tablet 2022-0 7-25 00:00: 00 Yes [id number] 800mg Take 1 tablet by mouth every 6 (six) hours as needed for Pain (scale 4-6). [facility] amoxicillin 500 mg capsule 2022-0 25 00:00: 00 Yes [id number] 500mg Take 1 capsule by mouth in the morning and 1 capsule at noon and 1 capsule in the evening. [facility] ibuprofen 800 mg tablet 2022-0 25 00:00: 00 Yes [id number] 800mg Take 1 tablet by mouth every 6 (six) hours as needed for Pain (scale 4-6). [facility] amoxicillin 500 mg capsule 2022-0 -25 00:00: 00 Yes [id number] 500mg Take 1 capsule by mouth in the morning and 1 capsule at noon and 1 capsule in the evening. [facility] ibuprofen 800 mg tablet 2022-0 7-25 00:00: 00 Yes [id number] 800mg Take 1 tablet by mouth every 6 (six) hours as needed for Pain (scale 4-6). [facility] traMADoL (ULTRAM) tablet 50 mg 0 15 08:30: 00 06-15 07:33 :00 No 50mg 50 mg, Oral, ONCE, 1 dose, On Erika 03/22/23 at 0330, Routine [facility] clindamycin (CLEOCIN HCL) capsule 450 mg 03-22 08:30: 00 03-22 07:34 :00 No 450mg 450 mg, Oral, ONCE, 1 dose, On Erika 03/22/23 at 0330, JUNE
Re ason for Anti-Infec tive: Documented Infection< br>Documen nakita Infection Site: HEENT
D uration of Therapy: Other (see Comments)< br>Restric nakita use approved by: ED PROVIDER [facility] ibuprofen (IBU) tablet 600 mg 03-22 07:30: 00 03-22 07:34 :00 No 600mg 600 mg, Oral, ONCE, 1 dose, On Erika 03/22/23 at 0230, JUNE [facility] traMADoL 50 mg tablet 03-22 00:00: 00 Yes [id number] 50mg Take 1 tablet by mouth every 6 (six) hours as needed for Pain (scale 7-10). Indication s: acute pain [facility] ibuprofen 600 mg tablet 03-22 00:00: 00 Yes [id number] 600mg Take 1 tablet by mouth every 6 (six) hours as needed for Pain (scale 4-6). [facility] traMADoL 50 mg tablet 03-22 00:00: 00 Yes [id number] 50mg Take 1 tablet by mouth every 6 (six) hours as needed for Pain (scale 7-10). Indication s: acute pain [facility] ibuprofen 600 mg tablet 03-22 00:00: 00 Yes [id number] 600mg Take 1 tablet by mouth every 6 (six) hours as needed for Pain (scale 4-6). [facility] traMADoL 50 mg tablet 03-22 00:00: 00 Yes [id number] 50mg Take 1 tablet by mouth every 6 (six) hours as needed for Pain (scale 7-10). Indication s: acute pain [facility] ibuprofen 600 mg tablet 03-22 00:00: 00 Yes [id number] 600mg Take 1 tablet by mouth every 6 (six) hours as needed for Pain (scale 4-6). [facility] traMADoL 50 mg tablet 03-22 00:00: 00 Yes [id number] 50mg Take 1 tablet by mouth every 6 (six) hours as needed for Pain (scale 7-10). Indication s: acute pain [facility] ibuprofen 600 mg tablet 03-22 00:00: 00 Yes [id number] 600mg Take 1 tablet by mouth every 6 (six) hours as needed for Pain (scale 4-6). [facility] traMADoL 50 mg tablet 03-22 00:00: 00 Yes [id number] 50mg Take 1 tablet by mouth every 6 (six) hours as needed for Pain (scale 7-10). Indication s: acute pain [facility] ibuprofen 600 mg tablet 03-22 00:00: 00 Yes [id number] 600mg Take 1 tablet by mouth every 6 (six) hours as needed for Pain (scale 4-6). [facility] clindamycin 150 mg capsule 03-22 00:00: 00 04-02 04:59 :00 No [id number] 450mg Take 3 capsules by mouth in the morning and 3 capsules at noon and 3 capsules in the evening. Do all this for 10 days. [facility] maalox:diph enhydrAMINE :lidocaine 2 % viscous 1:1:1 ([facility]) oral suspension 15 mL 02-10 03:15: 00 02-10 03:17 :00 No 15mL 15 mL, Oral, ONCE, 1 dose, On Sun02/09/23 at 2215, Routine [facility] cloNIDine (CATAPRES) tablet 0.1 mg 02-10 02:15: 00 02-10 02:15 :00 No .1mg 0.1 mg, Oral, ONCE, 1 dose, On Sun02/09/23 at 2115, STAT [facility] dicyclomine (BENTYL) injection 20 mg 02-10 02:00: 00 02-10 00:59 :00 No 20mg 20 mg, Intramuscu lar, ONCE, 1 dose, On Sun02/09/23 at 2100, Routine [facility] NaCl 0.9% (NS) IV infusion 1,000 mL 02-10 01:00: 00 Yes 1000mL at 999 mL/hr, Intravenou s, CONTINUOUS , Starting on Sun02/09/23 at 2000, Until Discontinu ed, JUNE [facility] haloperidol lactate (HALDOL) injection 2.5 mg 02-10 00:00: 00 02-10 00:59 :00 No 2.5mg 2.5 mg, Slow IV Push, ONCE, 1 dose, On Sun02/09/23 at 1900, STAT [facility] proMETHazin e 25 mg tablet 02-09 00:00: 00 Yes [id number] 25mg Take 1 tablet by mouth every 6 (six) hours as needed for Nausea and Vomiting (N/V) or N/V unresponsi ve to Ondansetro n. [facility] proMETHazin e 25 mg tablet 02-09 00:00: 00 Yes [id number] 25mg Take 1 tablet by mouth every 6 (six) hours as needed for Nausea and Vomiting (N/V) or N/V unresponsi ve to Ondansetro n. [facility] proMETHazin e 25 mg tablet 02-09 00:00: 00 Yes [id number] 25mg Take 1 tablet by mouth every 6 (six) hours as needed for Nausea and Vomiting (N/V) or N/V unresponsi ve to Ondansetro n. [facility] proMETHazin e 25 mg tablet 02-09 00:00: 00 Yes [id number] 25mg Take 1 tablet by mouth every 6 (six) hours as needed for Nausea and Vomiting (N/V) or N/V unresponsi ve to Ondansetro n. [facility] proMETHazin e 25 mg tablet 02-09 00:00: 00 Yes [id number] 25mg Take 1 tablet by mouth every 6 (six) hours as needed for Nausea and Vomiting (N/V) or N/V unresponsi ve to Ondansetro n. [facility] proMETHazin e 25 mg tablet 02-09 00:00: 00 Yes [id number] 25mg Take 1 tablet by mouth every 6 (six) hours as needed for Nausea and Vomiting (N/V) or N/V unresponsi ve to Ondansetro n. [facility] losartan 50 mg tablet 02-09 00:00: 00 03-12 04:59 :00 No [id number] 50mg Take 1 tablet by mouth in the morning for 30 days. [facility] pantoprazol e (PROTONIX) 80 mg in NaCl 0.9% (NS) 20 mL syringe 02-08 13:00: 00 02-08 12:04 :00 No 80mg 80 mg, IV Push, ONCE, 1 dose, On Erika 02/08/23 at 0800, Administer over 2 Minutes, 20 mL [facility] dicyclomine (BENTYL) tablet 20 mg 02-08 12:00: 00 02-08 12:01 :00 No 20mg 20 mg, Oral, ONCE, 1 dose, On Erika 02/08/23 at 0700, [facility] NaCl 0.9% (NS) bolus infusion 1,000 mL 02-08 12:00: 00 02-08 12:10 :00 No 1000mL at 999 mL/hr, 1,000 mL, IV Infusion, ONCE, 1 dose, On Erika 02/08/23 at 0700, [facility] ondansetron (ZOFRAN (PF)) injection 4 mg 02-08 08:45: 00 02-08 08:41 :00 No 4mg 4 mg, Slow IV Push, ONCE, 1 dose, On Erika 02/08/23 at 0345, JUNE [facility] pantoprazol e (PROTONIX) EC tablet 40 mg 01-13 04:45: 00 01-13 04:49 :00 No 40mg 40 mg, Oral, ONCE, 1 dose, On Sun01/12/23 at 2345, JUNE [facility] iopamidol (ISOVUE 370-500 mL) injection 100 mL 01-13 04:15: 00 01-13 04:15 :00 No [id number] 100mL 100 mL, Intravenou s, ONCE, 1 dose, On Sun01/12/23 at 2315, Routine [facility] NaCl 0.9% (NS) bolus infusion 1,000 mL 01-13 03:15: 00 01-13 04:42 :00 No 1000mL at 999 mL/hr, 1,000 mL, IV Infusion, ONCE, 1 dose, On Sun01/12/23 at 2215, JUNE [facility] ondansetron 4 mg disintegrat ing tablet 01-13 00:00: 00 Yes [id number] 4mg Take 1 tablet by mouth every 8 (eight) hours as needed for Nausea and Vomiting (N/V). [facility] pantoprazol e (PROTONIX) 40 mg EC tablet 01-13 00:00: 00 Yes [id number] 40mg Take 1 tablet by mouth in the morning. [facility] ondansetron 4 mg disintegrat ing tablet 01-13 00:00: 00 Yes [id number] 4mg Take 1 tablet by mouth every 8 (eight) hours as needed for Nausea and Vomiting (N/V). [facility] pantoprazol e (PROTONIX) 40 mg EC tablet 01-13 00:00: 00 Yes [id number] 40mg Take 1 tablet by mouth in the morning. [facility] ondansetron 4 mg disintegrat ing tablet 01-13 00:00: 00 Yes [id number] 4mg Take 1 tablet by mouth every 8 (eight) hours as needed for Nausea and Vomiting (N/V). [facility] pantoprazol e (PROTONIX) 40 mg EC tablet 01-13 00:00: 00 Yes [id number] 40mg Take 1 tablet by mouth in the morning. [facility] ondansetron 4 mg disintegrat ing tablet 2023-0 4-08 00:00: 00 Yes [id number] 4mg Take 1 tablet by mouth every 8 (eight) hours as needed for Nausea and Vomiting (N/V). [facility] pantoprazol e (PROTONIX) 40 mg EC tablet 0 -08 00:00: 00 Yes [id number] 40mg Take 1 tablet by mouth in the morning. [facility] ondansetron 4 mg disintegrat ing tablet 2022-0 08 00:00: 00 Yes [id number] 4mg Take 1 tablet by mouth every 8 (eight) hours as needed for Nausea and Vomiting (N/V). [facility] pantoprazol e (PROTONIX) 40 mg EC tablet 0 08 00:00: 00 Yes [id number] 40mg Take 1 tablet by mouth in the morning. [facility] ondansetron 4 mg disintegrat ing tablet 0 01-13 00:00: 00 Yes [id number] 4mg Take 1 tablet by mouth every 8 (eight) hours as needed for Nausea and Vomiting (N/V). [facility] pantoprazol e (PROTONIX) 40 mg EC tablet 2022-0 01-13 00:00: 00 Yes [id number] 40mg Take 1 tablet by mouth in the morning. [facility] ondansetron 4 mg disintegrat ing tablet 0 01-13 00:00: 00 Yes [id number] 4mg Take 1 tablet by mouth every 8 (eight) hours as needed for Nausea and Vomiting (N/V). [facility] pantoprazol e (PROTONIX) 40 mg EC tablet 2022-0 08 00:00: 00 Yes [id number] 40mg Take 1 tablet by mouth in the morning. [facility] pantoprazol e (PROTONIX) 40 mg EC tablet 2022-0 08 00:00: 00 Yes [id number] 40mg Take 1 tablet by mouth in the morning. [facility] ondansetron 4 mg disintegrat ing tablet 2022-0 08 00:00: 00 10-15 00:00 :00 No [id number] 4mg Take 1 tablet by mouth every 8 (eight) hours as needed for Nausea and Vomiting (N/V). [facility] dexamethaso ne (DECADRON PHOSPHATE) injection 10 mg 11-24 15:15: 00 11-24 14:09 :00 No 10mg 10 mg, Oral, ONCE, 1 dose, On Erika 11/24/21 at 0915, STAT [facility] HYDROcodone -acetaminop hen (NORCO 5) 5-325 mg tablet 1 tablet 11-24 15:15: 00 11-24 14:08 :00 No 1{tbl} 1 tablet, Oral, ONCE, 1 dose, On Erika 11/24/21 at 0915, JUNE [facility] diazePAM (VALIUM) tablet 5 mg 11-24 15:15: 00 11-24 14:09 :00 No 5mg 5 mg, Oral, ONCE, 1 dose, On Erika 11/24/21 at 0915, JUNE [facility] cyclobenzap rine 10 mg tablet 11-24 00:00: 00 Yes [id number] 10mg Take 1 tablet by mouth 3 (three) times daily as needed for Muscle Spasms. [facility] cyclobenzap rine 10 mg tablet 11-24 00:00: 00 Yes [id number] 10mg Take 1 tablet by mouth 3 (three) times daily as needed for Muscle Spasms. [facility] cyclobenzap rine 10 mg tablet 17 00:00: 00 Yes [id number] 10mg Take 1 tablet by mouth 3 (three) times daily as needed for Muscle Spasms. [facility] cyclobenzap rine 10 mg tablet 17 00:00: 00 Yes [id number] 10mg Take 1 tablet by mouth 3 (three) times daily as needed for Muscle Spasms. [facility] cyclobenzap rine 10 mg tablet 17 00:00: 00 03-22 00:00 :00 No [id number] 10mg Take 1 tablet by mouth 3 (three) times daily as needed for Muscle Spasms. [facility] ondansetron 4 mg disintegrat ing tablet 2021-0 -16 00:00: 00 Yes [id number] 4mg Take 1 tablet by mouth every 4 (four) hours as needed for Nausea and Vomiting (N/V). [facility] dicyclomine 20 mg tablet 2021-0 -16 00:00: 00 Yes [id number] 20mg Take 1 tablet by mouth 4 (four) times daily. [facility] loratadine 10 mg tablet 2021-0 -16 00:00: 00 Yes [id number] 10mg Take 1 tablet by mouth daily. [facility] ondansetron 4 mg disintegrat ing tablet 2021-0 -16 00:00: 00 Yes [id number] 4mg Take 1 tablet by mouth every 4 (four) hours as needed for Nausea and Vomiting (N/V). [facility] dicyclomine 20 mg tablet 2021-0 -16 00:00: 00 Yes [id number] 20mg Take 1 tablet by mouth 4 (four) times daily. [facility] loratadine 10 mg tablet 2021-0 -16 00:00: 00 Yes [id number] 10mg Take 1 tablet by mouth daily. [facility] ondansetron 4 mg disintegrat ing tablet 2021-0 -16 00:00: 00 Yes [id number] 4mg Take 1 tablet by mouth every 4 (four) hours as needed for Nausea and Vomiting (N/V). [facility] dicyclomine 20 mg tablet 2021-0 -16 00:00: 00 Yes [id number] 20mg Take 1 tablet by mouth 4 (four) times daily. [facility] loratadine 10 mg tablet 2021-0 -16 00:00: 00 Yes [id number] 10mg Take 1 tablet by mouth daily. [facility] ondansetron 4 mg disintegrat ing tablet 2021-0 -16 00:00: 00 Yes [id number] 4mg Take 1 tablet by mouth every 4 (four) hours as needed for Nausea and Vomiting (N/V). [facility] dicyclomine 20 mg tablet 2021-0 -16 00:00: 00 Yes [id number] 20mg Take 1 tablet by mouth 4 (four) times daily. [facility] loratadine 10 mg tablet 2021-0 -16 00:00: 00 Yes [id number] 10mg Take 1 tablet by mouth daily. [facility] ondansetron 4 mg disintegrat ing tablet 0 -16 00:00: 00 Yes [id number] 4mg Take 1 tablet by mouth every 4 (four) hours as needed for Nausea and Vomiting (N/V). [facility] dicyclomine 20 mg tablet 0 -16 00:00: 00 Yes [id number] 20mg Take 1 tablet by mouth 4 (four) times daily. [facility] loratadine 10 mg tablet 0 16 00:00: 00 Yes [id number] 10mg Take 1 tablet by mouth daily. [facility] ondansetron 4 mg disintegrat ing tablet 0 16 00:00: 00 Yes [id number] 4mg Take 1 tablet by mouth every 4 (four) hours as needed for Nausea and Vomiting (N/V). [facility] dicyclomine 20 mg tablet 2021-0 16 00:00: 00 Yes [id number] 20mg Take 1 tablet by mouth 4 (four) times daily. [facility] loratadine 10 mg tablet 0 16 00:00: 00 Yes [id number] 10mg Take 1 tablet by mouth daily. [facility] ondansetron 4 mg disintegrat ing tablet 0 16 00:00: 00 Yes [id number] 4mg Take 1 tablet by mouth every 4 (four) hours as needed for Nausea and Vomiting (N/V). [facility] dicyclomine 20 mg tablet 2021-0 -16 00:00: 00 Yes [id number] 20mg Take 1 tablet by mouth 4 (four) times daily. [facility] loratadine 10 mg tablet 2021-0 -16 00:00: 00 Yes [id number] 10mg Take 1 tablet by mouth daily. [facility] ondansetron 4 mg disintegrat ing tablet 2021-0 -16 00:00: 00 Yes [id number] 4mg Take 1 tablet by mouth every 4 (four) hours as needed for Nausea and Vomiting (N/V). [facility] dicyclomine 20 mg tablet 0 -16 00:00: 00 Yes [id number] 20mg Take 1 tablet by mouth 4 (four) times daily. [facility] loratadine 10 mg tablet 16 00:00: 00 Yes [id number] 10mg Take 1 tablet by mouth daily. [facility] ondansetron 4 mg disintegrat ing tablet 16 00:00: 00 Yes [id number] 4mg Take 1 tablet by mouth every 4 (four) hours as needed for Nausea and Vomiting (N/V). [facility] dicyclomine 20 mg tablet 16 00:00: 00 Yes [id number] 20mg Take 1 tablet by mouth 4 (four) times daily. [facility] loratadine 10 mg tablet 16 00:00: 00 Yes [id number] 10mg Take 1 tablet by mouth daily. [facility] dicyclomine 20 mg tablet 16 00:00: 00 Yes [id number] 20mg Take 1 tablet by mouth 4 (four) times daily. [facility] loratadine 10 mg tablet 16 00:00: 00 Yes [id number] 10mg Take 1 tablet by mouth daily. [facility] ondansetron 4 mg disintegrat ing tablet 16 00:00: 00 10-15 00:00 :00 No [id number] 4mg Take 1 tablet by mouth every 4 (four) hours as needed for Nausea and Vomiting (N/V). [facility] aspirin 81 mg chewable tablet 04-19 00:00: 00 05-20 04:59 :00 No [id number] 81mg Take 1 tablet by mouth daily for 30 days. [facility] aspirin chewable tablet 81 mg 04-18 14:00: 00 Yes 81mg 81 mg, Oral, DAILY, First dose on 04/18/20 at 0900, Until Discontinu ed, Routine [facility] carvediloL 3.125 mg tablet 04-18 00:00: 00 05-19 04:59 :00 No [id number] 3.125mg Take 1 tablet by mouth 2 (two) times daily with meals for 30 days. [facility] pantoprazol e 40 mg EC tablet 04-18 00:00: 00 05-19 04:59 :00 No [id number] 40mg Take 1 tablet by mouth daily for 30 days. [facility] carvediloL (COREG) tablet 3.125 mg 04-17 22:00: 00 Yes 3.125mg 3.125 mg, Oral, BID MEALS, First dose on 04/17/20 at 1700, Until Discontinu ed, Routine
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 [facility] at[facility] ([facility]IPITOR) tablet 40 mg 04-17 22:00: 00 Yes 40mg 40 mg, Oral, QPM, First dose on 04/17/20 at 1700, Until Discontinu ed, Routine [facility] heparin (porcine) injection 5,000 Units 04-17 19:00: 00 Yes 5000U 5,000 Units, Subcutaneo us, Q8H, First dose on 04/17/20 at 1400, Until Discontinu ed, Routine [facility] nicotine (NICODERM) 7 mg/24 hr patch 1 Patch 04-17 18:00: 00 Yes 1{patch } 1 Patch, Topical, Administer over 24 Hours, Q24H, First dose on 04/17/20 at 1300, Until Discontinu ed, Routine [facility] D5W 0.9% NaCl (NS) IV infusion 1,000 mL 04-17 17:00: 00 04-18 13:34 :21 No 1000mL at 100 mL/hr, 1,000 mL, IV Infusion, CONTINUOUS , Starting 04/17/20 at 1200, Until 04/18/20 at 0834, Routine [facility] LORazepam (ATIVAN) injection 0.5 mg 04-17 15:55: 35 Yes .5mg 0.5 mg, Slow IV Push, Q8HPRN, Starting 04/17/20 at 1055, Until Discontinu ed, Routine, Anxiety, Agitation [facility] nitroglycer in (NITROSTAT) sublingual tablet 0.4 mg 04-17 15:43: 20 Yes .4mg 0.4 mg, Sublingual , Q5MIN PRN, Starting 04/17/20 at 1043, Until Discontinu ed, Routine, Chest pain [facility] ondansetron (ZOFRAN (PF)) injection 4 mg 04-17 15:24: 53 Yes 4mg 4 mg, Slow IV Push, Q6HPRN, Starting 04/17/20 at 1024, Until Discontinu ed, Routine, Nausea and Vomiting (N/V) [facility] morpHINE injection 2 mg 04-17 15:24: 16 04-18 15:23 :16 No 2mg 2 mg, Slow IV Push, Q4HPRN, Starting 04/17/20 at 1024, Until 04/18/20 at 1023, Routine, Pain (scale 7-10) [facility] aspirin chewable tablet 324 mg 04-17 14:59: 00 04-17 15:04 :00 No 324mg 324 mg, Oral, ONCE, 1 dose, 04/17/20 at 1000, Routine [facility] proMETHazin e (PHENERGAN) 25 mg in NaCl 0.9% (NS) 50 mL piggyback 04-17 14:45: 00 04-17 14:45 :00 No 25mg 25 mg, IV Piggyback, ONCE, 1 dose, 04/17/20 at 0945, 50 mL [facility] NaCl 0.9% (NS) bolus infusion 500 mL 04-17 14:00: 00 04-18 01:12 :00 No 500mL at 999 mL/hr, 500 mL, IV Infusion, ONCE, 1 dose, 04/17/20 at 0900, STAT [facility] ondansetron (ZOFRAN (PF)) injection 4 mg 04-17 14:00: 00 04-17 13:10 :00 No 4mg 4 mg, Slow IV Push, ONCE, 1 dose, 04/17/20 at 0900[facility] 04-17 14:00: 00 04-17 13:10 :00 No 4mg 4 mg, Slow IV Push, ONCE, 1 dose, 04/17/20 at 0900, STAT [facility] pantoprazol e (PROTONIX) 40 mg in NaCl 0.9% (NS) 100 mL MINI-BAG 04-17 14:00: 00 04-17 13:26 :00 No 40mg 40 mg, IV Piggyback, ONCE, 1 dose, 04/17/20 at 0900, 100 mL [facility] NaCl 0.9% (NS) bolus infusion 1,000 mL 04-17 13:00: 00 04-17 15:04 :00 No 1000mL at 999 mL/hr, 1,000 mL, IV Infusion, ONCE, 1 dose, 04/17/20 at 0800, STAT [facility] ondansetron (ZOFRAN (PF)) injection 4 mg 04-17 13:00: 00 04-17 11:54 :00 No 4mg 4 mg, Slow IV Push, ONCE, 1 dose, 04/17/20 at 0800, [facility] LORazepam (ATIVAN) injection 2 mg 04-08 09:00: 00 04-08 07:56 :00 No 2mg 2 mg, Slow IV Push, ONCE, 1 dose, Erika 04/08/20 at 0400, Routine [facility] NaCl 0.9% (NS) IV infusion 1,000 mL 04-08 06:00: 00 Yes 1000mL at 150 mL/hr, Intravenou s, CONTINUOUS , Starting Erika 04/08/20 at 0100, Until Discontinu ed, Routine [facility] ondansetron (ZOFRAN (PF)) injection 8 mg 04-08 06:00: 00 04-08 04:53 :00 No 8mg 8 mg, Slow IV Push, ONCE, 1 dose, Erika 04/08/20 at 0100, JUNE [facility] NaCl 0.9% (NS) IV infusion 1,000 mL 04-08 05:45: 00 04-08 06:21 :00 No 1000mL at 999 mL/hr, Intravenou s, ONCE, 1 dose, Erika 04/08/20 at 0045, Routine [facility] NaCl 0.9% (NS) bolus infusion 1,000 mL 04-08 01:00: 00 04-08 02:20 :00 No 1000mL at 999 mL/hr, 1,000 mL, IV Infusion, ONCE, 1 dose, 04/07/20 at 2000, JUNE [facility] No known medications No Un nor[facility] No known medications No Un nora [facility] Vital Signs Vital Name Observation Time Observation Value Comments S ource Systolic blood pressure 2023-10-15 21:03:00 175 mm[Hg] [facility] Diastolic blood pressure 2023-10-15 21:03:00 100 mm[Hg] [facility] Respiratory rate 2023-10-15 21:03:00 20 /min [facility] Oxygen saturation in Arterial blood by Pulse oximetry 2023-10-15 21:03:00 99 /min [facility] Heart rate 2023-10-15 18:04:00 107 /min [facility] Body temperature 2023-10-15 18:04:00 37.22 Sumi [facility] Body height 2023-10-15 18:04:00 175.3 cm [facility] Body weight 2023-10-15 18:04:00 68.04 kg [facility] BMI 2023-10-15 18:04:00 22.15 kg/m2 [facility] Systolic blood pressure 2023-10-15 06:02:00 154 mm[Hg] [facility] Diastolic blood pressure 2023-10-15 06:02:00 90 mm[Hg] [facility] Heart rate 2023-10-15 06:02:00 76 /min [facility] Respiratory rate 2023-10-15 06:02:00 16 /min [facility] Oxygen saturation in Arterial blood by Pulse oximetry 2023-10-15 06:02:00 96 /min [facility] Body temperature 2023-10-15 02:24:00 37.5 Sumi [facility] Body height 2023-10-15 02:24:00 175.3 cm [facility] Body weight 2023-10-15 02:24:00 68.04 kg [facility] BMI 2023-10-15 02:24:00 22.15 kg/m2 [facility] Body temperature 2023-06-16 19:36:00 37.22 Sumi [facility] Respiratory rate 2023-06-16 19:36:00 18 /min [facility] Systolic blood pressure 2023-06-16 19:00:00 104 mm[Hg] [facility] Diastolic blood pressure 2023-06-16 19:00:00 62 mm[Hg] [facility] Heart rate 2023-06-16 19:00:00 81 /min [facility] Oxygen saturation in Arterial blood by Pulse oximetry 2023-06-16 19:00:00 97 /min [facility] Body height 2023-06-16 12:42:00 175.3 cm [facility] Body weight 2023-06-16 12:42:00 68.04 kg [facility] BMI 2023-06-16 12:42:00 22.15 kg/m2 [facility] Systolic blood pressure 2023-05-01 08:48:00 136 mm[Hg] [facility] Diastolic blood pressure 2023-05-01 08:48:00 93 mm[Hg] [facility] Heart rate 2023-05-01 08:48:00 70 /min [facility] Body temperature 2023-05-01 08:48:00 36.78 Suim [facility] Respiratory rate 2023-05-01 08:48:00 18 /min [facility] Body height 2023-05-01 08:48:00 175.3 cm [facility] Body weight 2023-05-01 08:48:00 73.483 kg [facility] BMI 2023-05-01 08:48:00 23.92 kg/m2 [facility] Oxygen saturation in Arterial blood by Pulse oximetry 2023-05-01 08:48:00 98 /min [facility] Systolic blood pressure 2023-03-22 07:34:00 154 mm[Hg] [facility] Diastolic blood pressure 2023-03-22 07:34:00 107 mm[Hg] [facility] Heart rate 2023-03-22 07:34:00 71 /min [facility] Body temperature 2023-03-22 07:34:00 36.56 Sumi [facility] Respiratory rate 2023-03-22 07:34:00 16 /min [facility] Oxygen saturation in Arterial blood by Pulse oximetry 2023-03-22 07:34:00 100 /min [facility] Body height 2023-03-22 06:17:00 175.3 cm [facility] Body weight 2023-03-22 06:17:00 72.485 kg [facility] BMI 2023-03-22 06:17:00 23.60 kg/m2 [facility] Systolic blood pressure 2023-02-10 03:00:00 195 mm[Hg] [facility] Diastolic blood pressure 2023-02-10 03:00:00 98 mm[Hg] [facility] Heart rate 2023-02-10 03:00:00 137 /min [facility] Respiratory rate 2023-02-10 03:00:00 18 /min [facility] Oxygen saturation in Arterial blood by Pulse oximetry 2023-02-10 03:00:00 90 /min [facility] Body temperature 2023-02-10 02:30:00 37.78 Sumi [facility] Body weight 2023-02-09 23:09:00 79.379 kg [facility] BMI 2023-02-09 23:09:00 25.84 kg/m2 [facility] Systolic blood pressure 2023-02-08 12:10:00 163 mm[Hg] [facility] Diastolic blood pressure 2023-02-08 12:10:00 102 mm[Hg] [facility] Respiratory rate 2023-02-08 12:10:00 16 /min [facility] Heart rate 2023-02-08 09:00:00 80 /min [facility] Oxygen saturation in Arterial blood by Pulse oximetry 2023-02-08 09:00:00 97 /min [facility] Body temperature 2023-02-08 08:26:00 36.78 Sumi [facility] Body height 2023-02-08 08:26:00 175.3 cm [facility] Body weight 2023-02-08 08:26:00 79.379 kg [facility] BMI 2023-02-08 08:26:00 25.84 kg/m2 [facility] Systolic blood pressure 2023-01-13 05:00:00 150 mm[Hg] [facility] Diastolic blood pressure 2023-01-13 05:00:00 99 mm[Hg] [facility] Heart rate 2023-01-13 05:00:00 74 /min [facility] Respiratory rate 2023-01-13 03:30:00 9 /min [facility] Oxygen saturation in Arterial blood by Pulse oximetry 2023-01-13 03:30:00 100 /min [facility] Body temperature 2023-01-13 02:06:00 37 Sumi [facility] Body height 2023-01-13 02:06:00 175.3 cm [facility] Body weight 2023-01-13 02:06:00 68.04 kg [facility] BMI 2023-01-13 02:06:00 22.15 kg/m2 [facility] Systolic blood pressure 2021-11-24 13:48:00 141 mm[Hg] [facility] Diastolic blood pressure 2021-11-24 13:48:00 90 mm[Hg] [facility] Heart rate 2021-11-24 13:48:00 80 /min [facility] Body temperature 2021-11-24 13:48:00 36.78 Sumi [facility] Respiratory rate 2021-11-24 13:48:00 22 /min [facility] Body weight 2021-11-24 13:48:00 79.379 kg [facility] BMI 2021-11-24 13:48:00 27.41 kg/m2 [facility] Oxygen saturation in Arterial blood by Pulse oximetry 2021-11-24 13:48:00 99 /min [facility] Systolic blood pressure 2021-10-23 18:43:00 136 mm[Hg] [facility] Diastolic blood pressure 2021-10-23 18:43:00 89 mm[Hg] [facility] Heart rate 2021-10-23 18:43:00 73 /min [facility] Body temperature 2021-10-23 18:43:00 37 Sumi [facility] Respiratory rate 2021-10-23 18:43:00 18 /min [facility] Body weight 2021-10-23 18:43:00 70.308 kg [facility] BMI 2021-10-23 18:43:00 24.28 kg/m2 [facility] Oxygen saturation in Arterial blood by Pulse oximetry 2021-10-23 18:43:00 100 /min [facility] Systolic blood pressure 2020-04-18 16:00:00 132 mm[Hg] [facility] Diastolic blood pressure 2020-04-18 16:00:00 95 mm[Hg] [facility] Heart rate 2020-04-18 16:00:00 82 /min [facility] Body temperature 2020-04-18 16:00:00 37.17 Sumi [facility] Respiratory rate 2020-04-18 16:00:00 18 /min [facility] Oxygen saturation in Arterial blood by Pulse oximetry 2020-04-18 16:00:00 98 /min [facility] Body weight 2020-04-18 08:08:00 70.988 kg [facility] BMI 2020-04-18 08:08:00 24.51 kg/m2 [facility] Body height 2020-04-17 22:34:00 170.2 cm [facility] Systolic blood pressure 2020-04-18 16:00:00 132 mm[Hg] [facility] Diastolic blood pressure 2020-04-18 16:00:00 95 mm[Hg] [facility] Heart rate 2020-04-18 16:00:00 82 /min [facility] Body temperature 2020-04-18 16:00:00 37.17 Sumi [facility] Respiratory rate 2020-04-18 16:00:00 18 /min [facility] Oxygen saturation in Arterial blood by Pulse oximetry 2020-04-18 16:00:00 98 /min [facility] Body weight 2020-04-18 08:08:00 70.988 kg [facility] BMI 2020-04-18 08:08:00 24.51 kg/m2 [facility] Body height 2020-04-17 22:34:00 170.2 cm [facility] Systolic blood pressure 2020-04-09 12:12:00 134 mm[Hg] [facility] Diastolic blood pressure 2020-04-09 12:12:00 74 mm[Hg] [facility] Heart rate 2020-04-09 12:12:00 80 /min [facility] Body temperature 2020-04-09 12:12:00 37 Sumi [facility] Respiratory rate 2020-04-09 12:12:00 18 /min [facility] Oxygen saturation in Arterial blood by Pulse oximetry 2020-04-09 12:12:00 99 /min [facility] Body weight 2020-04-09 08:55:00 70.489 kg [facility] BMI 2020-04-09 08:55:00 22.95 kg/m2 [facility] Body height 2020-04-08 06:35:00 175.3 cm [facility] Systolic blood pressure 2020-04-09 12:12:00 134 mm[Hg] [facility] Diastolic blood pressure 2020-04-09 12:12:00 74 mm[Hg] [facility] Heart rate 2020-04-09 12:12:00 80 /min [facility] Body temperature 2020-04-09 12:12:00 37 Sumi [facility] Respiratory rate 2020-04-09 12:12:00 18 /min [facility] Oxygen saturation in Arterial blood by Pulse oximetry 2020-04-09 12:12:00 99 /min [facility] Body weight 2020-04-09 08:55:00 70.489 kg [facility] BMI 2020-04-09 08:55:00 22.95 kg/m2 [facility] Body height 2020-04-08 06:35:00 175.3 cm [facility] Procedures Procedure Date / Time Performed Performing Clinician Source EKG-12 LEAD 2023-10-15 20:01:31 Syeda [facility] CT CHEST PULMONARY ANGIOGRAM 2023-10-15 19:25:33 Syeda [facility] LACTIC ACID WHOLE BLOOD 2023-10-15 18:32:00 Edmund Lawrence [facility] PHOSPHORUS 2023-10-15 18:31:00 Syeda [facility] LIPASE 2023-10-15 18:31:00 Syeda [facility] MAGNESIUM 2023-10-15 18:31[facility] TROPONIN I 2023-10-15 18:31:00 Syeda [facility] COMP. METABOLIC PANEL ([id number]) 2023-10-15 18:31:00 Syeda [facility] CBC WITH DIFF 2023-10-15 18:31:00 Fabian [facility] D-DIMER 2023-10-15 18:31:00 Syeda [facility] RAPID INFLUENZA A/B 2023-10-15 18:31:00 Fiona Lawrence [facility] N-TERMINAL PRO-BNP 2023-10-15 18:31:00 Nigel Lawrence [facility] COVID-19 (ID NOW RAPID TESTING) 2023-10-15 18:31:00 Fabian Lawrence [facility] TROPONIN I 2023-10-15 04:58:00 Milagros Courtney [facility] XR CHEST 1 VW 2023-10-15 02:49:23 Milagros Courtney [facility] LIPASE 2023-10-15 02:49:00 Milagros Courtney [facility] TROPONIN I 2023-10-15 02:49:00 Milagros Courtney [facility] COMP. METABOLIC PANEL ([id number]) 2023-10-15 02:49:00 Milagros Courtney [facility] CBC WITH DIFF 2023-10-15 02:49:00 Milagros Courtney [facility] COVID-19 (ID NOW RAPID TESTING) 2023-06-16 18:39:00 Osito Hillman [facility] CT ABDOMEN PELVIS W CONTRAST 2023-06-16 14:31:27 Osito Hillman [facility] URINE DRUG (IMMUNOASSAY) - COMPREHENSIVE DRUG SCREEN 2023-06-16 14:13:00 Osito Hillman [facility] ASSIGNMENT OF BENEFITS 2023-06-16 13:43:45 Docto r Unassigned, [place] [facility] CONSENT/REFUSAL FOR DIAGNOSIS AND TREATMENT 2023-06-16 13:42:28 Doctor Unassigned, [place] [facility] CREATINE KINASE 2023-06-16 13:02:00 Osito Hillman [facility] LIPASE 2023-06-16 13:02:00 Osito Hillman [facility] COMP. METABOLIC PANEL ([id number]) 2023-06-16 13:02:00 Osito Hillman [facility] CBC WITH DIFF 2023-06-16 13:02:00 Osito Hillman [facility] NOTICE OF PRIVACY PRACTICES 2023-05-01 08:43:44 Doctor Unassigned, [place] [facility] CONSENT/REFUSAL FOR DIAGNOSIS AND TREATMENT 2023-05-01 08:43:11 Doctor Unassigned, [place] [facility] CONSENT/REFUSAL FOR DIAGNOSIS AND TREATMENT 2023-03-22 05:59:51 Doctor Unassigned, [place] [facility] URINALYSIS 2023-02-10 01:53:00 Yancy Crump [facility] CREATINE KINASE 2023-02-10 00:43:00 Yancy Crump [facility] LIPASE 2023-02-10 00:43:00 Yancy Crump [facility] COMP. METABOLIC PANEL ([id number]) 2023-02-10 00:43:00 Yancy Crump [facility] CBC WITH DIFF 2023-02-10 00:43:00 Yancy Crump [facility] XR CHEST 1 VW 2023-02-08 12:06:00 Emily Watt [facility] URINALYSIS 2023-02-08 11:25:00 Emily Watt [facility] URINE DRUG (IMMUNOASSAY) - COMPREHENSIVE DRUG SCREEN W/O REFLEX 2023-02-08 11:25:00 Emily Watt [facility] LIPASE 2023-02-08 08:40:00 Emily Watt [facility] COMP. METABOLIC PANEL ([id number]) 2023-02-08 08:40:00 Emily Watt [facility] CBC WITH DIFF 2023-02-08 08:40:00 Emily Watt [facility] URINALYSIS 2023-01-13 04:28:00 Harshad Lowe [facility] CT ABDOMEN PELVIS W CONTRAST 2023-01-13 03:23:28 Harshad Lowe [facility] LIPASE 2023-01-13 02:22:00 Harshad Lowe [facility] COMP. METABOLIC PANEL ([id number]) 2023-01-13 02:22:00 Harshad Lowe [facility] CBC WITH DIFF 2023-01-13 02:22:00 [facility] CONSENT/REFUSAL FOR DIAGNOSIS AND TREATMENT 2021-11-24 13:39:07 Doctor Unassigned, [place] [facility] ASSIGNMENT OF BENEFITS 2021-10-23 19:03:33 Docto r Unassigned, [place] [facility] NOTICE OF PRIVACY PRACTICES 2021-10-23 18:37:52 Doctor Unassigned, [place] [facility] CONSENT/REFUSAL FOR DIAGNOSIS AND TREATMENT 2021-10-23 18:36:42 Doctor Unassigned, [place] [facility] MAGNESIUM 2020-04-18 10:16:00 [facility] TROPONIN I 2020-04-18 10:16:00 Ramses Wiseman [facility] BASIC METABOLIC PANEL (NA, K, CL, CO2, GLUCOSE, BUN, CREATININE, CA) 2020-04-18 10:16:00 Brunilda Luevano [facility] LIPID PANEL ([id number])(TOTAL CHOLESTEROL, TRIGLYCERIDES, HDL) 2020-04-17 17:32:00 Opal [facility] EKG-12 LEAD 2020-04-17 16:25:28 Milagros Courtney [facility] SERUM DRUG (IMMUNOASSAY) - COMPREHENSIVE DRUG SCREEN 2020-04-17 16:17:00 Opal [facility] PROTHROMBIN TIME / INR 2020-04-17 16:17:00 Kecia Joseph [facility] D-DIMER 2020-04-17 16:17:00 Estrella [facility] N-TERMINAL PRO-BNP 2020-04-17 16:17:00 [facility] 2020-04-17 15:08:28 Milagros Courtney [facility] PHOSPHORUS 2020-04-17 15:07:00 Estrella [facility] TROPONIN I 2020-04-17 15:07:00 Deepak Weber [facility] THYROID STIMULATING HORMONE 2020-04-17 15:07:00 Opal [facility] COVID-19 (ID NOW RAPID TESTING) 2020-04-17 13:14:00 Milagros Courtney [facility] ACUTE CARE VENOUS BLOOD GAS 2020-04-17 13:10:00 Milagros Courtney [facility] EKG-12 LEAD 2020-04-17 13:04:30 Milagros Courtney [facility] EKG-12 LEAD 2020-04-17 12:46:15 Milagros Courtney [facility] CREATINE KINASE 2020-04-17 11:54:00 [facility] 2020-04-17 11:54:00 [facility] TROPONIN I 2020-04-17 11:54:00 Murtaza Ramirez [facility] COMP. METABOLIC PANEL ([id number]) 2020-04-17 11:54:00 Murtaza Ramirez [facility] CBC WITH DIFFERENTIAL 2020-04-17 11:54:00 Francesco Ramirez [facility] GLYCOSYLATED HEMOGLOBIN (A1C) 2020-04-17 11:54:00 Estrella Joseph [facility] EKG-12 LEAD 2020-04-17 11:49:44 Murtaza Ramirez [facility] EKG-12 LEAD 2020-04-17 11:38:11 Murtaza Ramirez [facility] CREATINE KINASE 2020-04-09 08:58:00 Abel West [facility] BASIC METABOLIC PANEL (NA, K, CL, CO2, GLUCOSE, BUN, CREATININE, CA) 2020-04-09 08:58:00 Brett [facility] CBC WITH DIFFERENTIAL 2020-04-09 08:58:00 Brett [facility] BASIC METABOLIC PANEL (NA, K, CL, CO2, GLUCOSE, BUN, CREATININE, CA) 2020-04-08 10:48:00 Mike Bob [facility] COVID-19 (ID NOW RAPID TESTING) 2020-04-08 05:10:00 Yancy Crump [facility] TROPONIN I 2020-04-08 04:22:00 Yancy Crump [facility] EKG-12 LEAD 2020-04-08 04:13:08 [facility] EKG-12 LEAD 2020-04-08 04:08:34 Yancy Crump [facility] URINALYSIS 2020-04-08 01:57:00 Yancy Crump [facility] ADC / LCC - DRUG SCREEN TRIAGE 2020-04-08 01:57:00 Yancy Crump [facility] CREATINE KINASE 2020-04-08 01:18:00 [facility] 2020-04-08 01:18:00 Yancy Crump [facility] TROPONIN I 2020-04-08 01:18:00 Yancy Crump [facility] HEPATIC FUNCTION PANEL ([id number]) (ALB,T.PRO,BILI T,BU/BC,ALT,AST,ALK PHOS) 2020-04-08 01:18:00 Yancy Crump [facility] BASIC METABOLIC PANEL (NA, K, CL, CO2, GLUCOSE, BUN, CREATININE, CA) 2020-04-08 01:18:00 Yancy Crump [facility] CBC WITH DIFFERENTIAL 2020-04-08 01:18:00 Hugo Crump [facility] EKG-12 LEAD 2020-04-08 00:55:43 Yancy Crump [facility] NOTICE OF PRIVACY PRACTICES 2020-04-08 00:32:15 Doctor Unassigned, [place] [facility] CONSENT/REFUSAL FOR DIAGNOSIS AND TREATMENT 2020-04-08 00:32:00 Doctor Unassigned, [place] [facility] Encounters Start Date/Time End Date/Time Encounter Type Admission Type Attending Clinicians Care Facility Care Department Encounter ID Source 2023-10-15 12:05:00 2023-10-15 15:31:00 Emergency X FABIAN LAWRENCE CHARLES [facility] ERT [id number] [facility] 2023-10-15 12:05:00 2023-10-15 15:31:00 Emergency Fabian Lawrence [facility] [id number] [facility] 2023-10-14 20:17:00 2023-10-15 00:42:00 Emergency X MILAGROS COURTNEY [facility] ERT [id number] [facility] 2023-10-14 20:17:00 2023-10-15 00:42:00 Emergency ChristelleriMilagros oneill [facility] [id number] [facility] 2023-06-16 07:46:00 2023-06-16 14:40:00 Emergency X OSITO HILLMAN [facility] ERT [id number] [facility] 2023-06-16 07:46:00 2023-06-16 14:40:00 Emergency Osito Hillman [facility] [id number] [facility] 2023-06-14 21:15:00 2023-06-15 01:17:00 Emergency EM Jcarlos Mora [facility] [id number] 65 [facility] 2023-05-01 03:52:00 2023-05-01 06:14:00 Emergency X MILAGROS COURTNEY [facility] ERT [id number] [place] [facility]01 03:52:00 2023-05-01 06:14:00 Emergency Milagros Courtney [facility] 1.2.840.114 350.1.13.10 4.2.7.2.686 [id number] 084 [id number] [facility] 2023-03-22 01:19:00 2023-03-22 02:41:00 Emergency X RAMIRO TIPTON [facility] ERT [id number] [facility] 2023-03-22 01:19:00 2023-03-22 02:41:00 Emergency Ramiro Tipton [facility] 1.2.840.114 350.1.13.10 4.2.7.2.686 [id number] [id number] [facility] 2023-02-09 18:10:00 2023-02-09 23:44:00 Emergency X DONALDABRAHAM WEEKSALA [facility] ERT [id number] [facility] 2023-02-09 18:10:00 2023-02-09 23:44:00 Emergency DonaldYancy weeks Shantal [facility] 1.2.840.114 350.1.13.10 4.2.7.2.686 [id number] [id number] [facility] 2023-02-08 03:22:00 2023-02-08 07:21:00 Emergency X MURTAZA RAMIREZ [facility] ERT [id number] [facility] 2023-02-08 03:22:00 2023-02-08 07:21:00 Emergency Emily Watt Phillip [facility] 1.2.840.114 350.1.13.10 4.2.7.2.686 [id number] [id number] [facility] 2023-01-12 21:09:00 2023-01-13 00:30:00 Emergency X HARSHAD LOWE [facility] ERT [id number] [facility] 2023-01-12 21:09:00 2023-01-13 00:30:00 Emergency Harshad Lowe [facility] 1..840.114 350.1.13.10 4.2.7.2.686 [id number] [id number] [facility] 2021-11-24 07:50:00 2021-11-24 08:22:00 Emergency X KENIA ALCALA [facility] ERT [id number] [facility] 2021-11-24 07:50:00 2021-11-24 08:22:00 Emergency Kenia Alcala [facility] 1.2.840.114 350.1.13.10 4.2.7.2.686 [id number] 084 [id number] [facility] 2021-10-23 12:44:00 2021-10-23 13:18:00 Emergency X SMILEY WELCH [facility] ERT [id number] [facility] 2021-10-23 12:44:00 2021-10-23 13:18:00 Emergency Smiley Welch [facility] 1.2.840.114 350.1.13.10 4.2.7.2.686 [id number] 084 [id number] [facility] 2020-04-17 06:30:30 2020-04-18 11:35:00 Emergency Milagros Courtney [facility] 1.2.840.114 350.1.13.10 4.2.7.2.686 [id number] [id number] 2020-04-17 06:30:30 2020-04-18 11:35:00 Emergency Milagros Courtney [facility] 1.2.840.114 350.1.13.10 4.2.7.2.686 [id number] [id number] [facility] 2020-04-17 06:30:30 2020-04-17 06:30:30 Emergency X MILAGROS COURTNEY [facility] ERT [id number] [facility] 2020-04-14 00:00:00 2020-04-14 00:00:00 Telephone [facility] 1.2.840.114 350.1.13.10 4.2.7.2.686 [id number] 2020-04-14 00:00:00 2020-04-14 00:00:00 Telephone [facility] 1.2.840.114 350.1.13.10 4.2.7.2.686 [id number] [facility] 2020-04-07 19:37:02 2020-04-09 10:30:00 Emergency Yancy Crump [facility] 1.2.840.114 350.1.13.10 4.2.7.2.686 [id number] [id number] 2020-04-07 19:37:02 2020-04-09 10:30:00 Emergency Yancy Crump [facility] 1.2.840.114 350.1.13.10 4.2.7.2.686 [id number] [id number] [facility] 2020-04-07 19:37:02 2020-04-07 19:37:02 Emergency X YANCY CRUMP [facility] ERT [id number] [facility] Results Test Description Test Time Test Comments Results Result Comments Source CT CHEST PULMONARY ANGIOGRAM 8 21:12:51 PROCEDURE: CT CHEST WITH CONTRAST- CHEST PE PROTOCOL HISTORY: 43 years old, Male. PE suspected, intermediate prob, positiveD-dimer ? Comparison: Chest radiographs from 04/17/2020 to 10/14/2023. TECHNIQUE: Volumetric helical CT angiogram was performed of the chest (lungapices to bases) with IV contrast. Images were reconstructed at 1.25 mmslice thickness. Axial MIPs and coronal and sagittal MPR images weregenerated and reviewed. FINDINGS: Images are distorted by motion artifact. HEART AND GREAT VESSELS: The opacification of the pulmonary vasculature isappropriate. No filling defects are seen through the level of the segmentalpulmonary arteries.The pulmonary trunk is normal in caliber. The RV to LV is more than 1.Reflux of contrast into the IVC is noted. The heart is normal in size. Nopericardial effusion is identified. The thoracic aorta is normal incaliber. MEDIASTINUM AND LOWER NECK: No central airway lesions are detected. Theesophagus is within normal limits. The included thyroid gland appearsnormal. LYMPH NODES: No enlarged lymphadenopathy. LUNGS AND PLEURA: The lungs are well-expanded. Diffuse subtle dydgdscsrfxxiggga-rk-l ud nodules are noted. No distinct consolidation. No pleuralabnormality detected. VISUALIZED UPPER ABDOMEN: The included solid organs and hollow viscusappear within normal limits. OSSEOUS STRUCTURES AND SOFT TISSUES: Mild thoracic spondylosis. The softtissues appear normal. [facility] Resources[facility]OPODESTININ [id number] 19:22:03* Test Item Value Reference Range Interpretation Comme nts TROPONIN I (test code = 7562574265) 0.010 ng/mL <=0.034 MARIA LUZ (test code = MARIA LUZ) Reference (Normal) Range (defined by the 99th percentile reference limit): <= 0.034 ng/mL Note: Cardiac troponin begins to rise 3-4 hours after the onset of ischemia. Repeat in 4-6 hours if the sample was drawn within 3-4 hours of the onset of the symptom and found normal. Diagnosis of myocardial injury is made with acute changes in cTn concentrations with at least one serial sample above the 99th percentile upper reference limit (URL), taken together with the patient's clinical presentation. Biotin has been reported to cause a negative bias, interpret results relative to patient's use of biotin. Lab Interpretation (test code = 91383-4) [facility] [id number]-[id number] 19:19:41* Test Item Value Reference Range Interpretation Comme nts NT-proBNP (test code = 74591-2) 195 pg/mL <=125 MARIA LUZ (test code = MARIA LUZ) Result Indeterminate-Consid er causes of NT-proBNP elevation other than Heart failure such as acute coronary syndrome, pulmonary embolism, pulmonary hypertension, sepsis, stroke, and renal dysfunction. Lab Interpretation (test code = 14799-5) [facility]normal [facility] HospitalCOMP. METABOLIC PANEL (60165)2023-10-15 19:12:02* Test Item Value Reference Range Interpretation Comme nts NA (test code = 6063678425) 134 mmol/L 135-145 L K (test code = 4523152069) 3.2 mmol/L 3.5-5.0 L CL (test code = 4639296017) 99 mmol/L 98-108 CO2 TOTAL (test code = 6613338228) 21 mmol/L 23-31 L AGAP (test code = 4340993367) 14 2-16 BUN (test code = 9091975724) 19 mg/dL 7-23 GLUCOSE (test code = 2497641585) 121 mg/dL 70-110 H CREATININE (test code = 0169213567) 0.93 mg/dL 0.60-1.25 TOTAL BILI (test code = 2923183452) 0.4 mg/dL 0.1-1.1 CALCIUM (test code = 4120573255) 8.9 mg/dL 8.6-10.6 T PROTEIN (test code = 1994542316) 7.2 g/dL 6.3-8.2 ALBUMIN (test code = 3616846356) 4.0 g/dL 3.5-5.0 ALK PHOS (test code = 9982571315) 76 U/L 34-122 ALTv (test code = 1742-6) 33 U/L 5-50 AST(SGOT) (test code = 4056000116) 37 U/L 13-40 eGFR (test code = 68870-0) 105.1 mL/min/1.73m2 CKD-EPI eGFR (2020). Assuming creatinine has been stable day-to-day for at least three months, the eGFR indicates Category G1 (>= 90 mL/min/1.73 m2) Lab Interpretation (test code = 87387-5) [facility]normal [facility] Hospital[facility]esium2024-01-08 19:12:02* Test Item Value Reference Range Interpretation Comme nts MAGNESIUM (test code = 8895860912) 1.7 mg/dL 1.7-2.4 Lab Interpretation (test cod e = 51578-4) Normal [facility] HospitalPhosphorus2024-01-08 19:11:42* Test Item Value Reference Range Interpretation Comme nts PHOSPHORUS (test code = 6002507023) 3.2 mg/dL 2.5-5.0 Lab Interpretation (test cod e = 08114-1) Normal [facility] HospitalLIPASE2024-01-08 19:11:21* Test Item Value Reference Range Interpretation Comme nts LIPASE (test code = 3372925972) 76 U/L 0-220 Lab Interpretation (test cod e = 03683-6) Normal [facility] HospitalLactic Acid Whole Nifxg4103-05-08 19:00:13* Test Item Value Reference Range Interpretation Comme nts LACTIC ACID (test code = 8497500955) 1.50 mmol/L 0.50-2.20 Lab Interpretation (test cod e = 93599-4) Normal [facility] HospitalD-Pfeik9931-06-45 18:57:23* Test Item Value Reference Range Interpretation Comments D-DIMER (test code = 8863779240) 0.65 See_Comment H [Automated message] The system which [...] a diagnosis. Lab Interpretation (test code = 86055-0) Abnormal [facility] HospitalTroponin [id number] 06:01:12* Test Item Value Reference Range Interpretation Comme nts TROPONIN I (test code = 5038585690) 0.013 ng/mL <=0.034 MARIA LUZ (test code = MARIA LUZ) Reference (Normal) Range (defined by the 99th percentile reference limit): <= 0.034 ng/mL Note: Cardiac troponin begins to rise 3-4 hours after the onset of ischemia. Repeat in 4-6 hours if the sample was drawn within 3-4 hours of the onset of the symptom and found normal. Diagnosis of myocardial injury is made with acute changes in cTn concentrations with at least one serial sample above the 99th percentile upper reference limit (URL), taken together with the patient's clinical presentation. Biotin has been reported to cause a negative bias, interpret results relative to patient's use of biotin. Lab Interpretation (test code = 93533-6) Normal [facility] HospitalTroponin [id number] 03:28:44* Test Item Value Reference Range Interpretation Comme nts TROPONIN I (test code = 7542283738) 0.011 ng/mL <=0.034 MARIA LUZ (test code = MARIA LUZ) Reference (Normal) Range (defined by the 99th percentile reference limit): <= 0.034 ng/mL Note: Cardiac troponin begins to rise 3-4 hours after the onset of ischemia. Repeat in 4-6 hours if the sample was drawn within 3-4 hours of the onset of the symptom and found normal. Diagnosis of myocardial injury is made with acute changes in cTn concentrations with at least one serial sample above the 99th percentile upper reference limit (URL), taken together with the patient's clinical presentation. Biotin has been reported to cause a negative bias, interpret results relative to patient's use of biotin. Lab Interpretation (test code = 15820-2) Normal [facility] HospitalCb with Gqmm2248-38-47 03:22:19* Test Item Value Reference Range Interpretation Comme nts WBC (test code = 6690-2) 7.63 See_Comment [Automated [employer] LS15a Singspiel] The system which generated this result transmitted reference range: 4.20 - 10.70 10*3/?L. The reference range was not used to interpret this result as normal/abnormal. RBC (test code = 789-8) 5.08 See_Comment [Automated [employer] LS15a Singspiel] The system which generated this result transmitted reference range: 4.26 - 5.52 10*6/?L. The reference range was not used to interpret this result as normal/abnormal. HGB (test code = 718-7) 16.7 g/dL 12.2-16.4 H HCT (test code = 4544-3) 45.7 % 38.4-49.3 MCV (test code = 787-2) 90.0 fL 81.7-95.6 MCH (test code = 785-6) 32.9 pg 26.1-32.7 H MCHC (test code = 786-4) 36.5 g/dL 31.2-35.0 H RDW-SD (test code = 49015-6) 42.4 fL 38.5-51.6 RDW-CV (test code = 788-0) 12.8 % 12.1-15.4 PLT (test code = 777-3) 124 See_Comment L [Automated [employer] LS15a ge] The system which generated this result transmitted reference range: 150 - 328 10*3/?L. The reference range was not used to interpret this result as normal/abnormal. MPV (test code = 83782-4) 11.8 fL 9.8-13.0 IPF % (test code = 2827229915) 8.9 % 1.2-10.7 Platelet count measured by fluorescence method. NRBC/100 WBC (test code = 1922465914) 0.0 See_Comment [Automated [employer] Software ssage] The system which generated this result transmitted reference range: 0.0 - 10.0 /100 WBCs. The reference range was not used to interpret this result as normal/abnormal. NRBC x10^3 (test code = 6017095765) See_Comment [Automated [employer] LS15a ge] The system which generated this result transmitted reference range: 10*3/?L. The reference range was not used to interpret this result as normal/abnormal. GRAN MAT (NEUT) % (test code = 770-8) 59.7 % IMM GRAN % (test code = 2815370176) 0.30 % LYMPH % (test code = 736-9) 22.5 % MONO % (test code = 5905-5) 17.4 % EOS % (test code = 713-8) 0.0 % BASO % (test code = 706-2) 0.1 % GRAN MAT x10^3(ANC) (test code = 7342991791) 4.55 10*3/uL 1.99-6.95 IMM GRAN x10^3 (test code = 0001864317) 0.00-0.06 LYMPH x10^3 (test code = 731-0) 1.72 10*3/uL 1.09-3.23 MONO x10^3 (test code = 742-7) 1.33 10*3/uL 0.36-1.02 H EOS x10^3 (test code = 711-2) 0.06-0.53 L BASO x10^3 (test code = 704-7) 0.01-0.09 Lab Interpretation (test code = 74628-5) Abnormal [facility] HospitalComp. Metabolic Panel (52148)2023-10-15 03:16:47* Test Item Value Reference Range Interpretation Comme nts NA (test code = 0950025010) 133 mmol/L 135-145 L K (test code = 6391824712) 3.4 mmol/L 3.5-5.0 L CL (test code = 7016103296) 100 mmol/L 98-108 CO2 TOTAL (test code = 7951795671) 20 mmol/L 23-31 L AGAP (test code = 7626436255) 13 2-16 BUN (test code = 5327224503) 25 mg/dL 7-23 H GLUCOSE (test code = 0741346966) 123 mg/dL 70-110 H CREATININE (test code = 2430181275) 0.95 mg/dL 0.60-1.25 TOTAL BILI (test code = 6066412832) 0.4 mg/dL 0.1-1.1 CALCIUM (test code = 0581978368) 9.0 mg/dL 8.6-10.6 T PROTEIN (test code = 1820634158) 7.4 g/dL 6.3-8.2 ALBUMIN (test code = 5810365435) 4.2 g/dL 3.5-5.0 ALK PHOS (test code = 5382456822) 76 U/L 34-122 ALTv (test code = 1742-6) 32 U/L 5-50 AST(SGOT) (test code = 6632569231) 34 U/L 13-40 eGFR (test code = 48801-9) 102.5 mL/min/1.73m2 CKD-EPI eGFR (2020). Assuming creatinine has been stable day-to-day for at least three months, the eGFR indicates Category G1 (>= 90 mL/min/1.73 m2) Lab Interpretation (test code = 85180-0) [facility]normal [facility] HospitalXR CHEST 1 [id number] 03:16:37CHEST SINGLE VIEW CLINICAL HISTORY: Chest pain. ORDERING PHYSICIAN: AYSE COURTNEY TECHNIQUE: Frontal view of chest COMPARISON: 02/08/2023 FINDINGS: There is a normal cardiomediastinal silhouette. The pulmonary vascularitydoes not appear congested. The lungs appear clear demonstrating no focalpulmonary consolidation, pleural effusion, or pneumothorax. No acuteosseous process is observed. [facility] HospitalLipase2024-01-08 03:16:27* Test Item Value Reference Range Interpretation Comme [facility] LIPASE (test code = 8287982298) 85 U/L 0-220 Lab Interpretation (test cod e = 29232-7) Normal [facility] HospitalTROP-I HIGH ZYPHHWHZKGO4559-49-97 00:25:00* Test Item Value Reference Range Interpretation Comme [facility] TROP-I HIGH SENSITIVITY (test code = TROPIHS) 13.5 ng/L 0-78 N CAUTION: Units o f [...] quantitative results and URLs may varyby method. CBC W/O BKUU3234-10-72 22:58:00* Test Item Value Reference Range Interpretation Comme [facility] WHITE BLOOD CELL (test code = WBC) [...] 7.0-9.6 H - CT ABD PELVIS W/O [id number] 22:46:00 [facility] 1980 Sex: M Name: BRUCE OSWALD [facility] : 1980 Age/S: 43 / M [address] [address] [place] Unit #: [id number] Loc: [place] [address] Phys: Jcarlos Mora MD Acct: [id number] Dis Date: Status: REG ER PHONE #: [phone] Exam Date: 06/14/2023 2213 FAX #: Reason: gen abdominal pain EXAMS: CPT: [id number] CT ABD PELVIS W/O CONT 36950 EXAM: - CT ABD PELVIS W/O CONT LOCATION: H47 HISTORY: gen abdominal painCOMPARISON: None available at the time of interpretation. [...] control, adjustment of the mA and/or kV accordingto patient size and/or use of iterative reconstruction [...] 1 Signed Report (CONTINUED) Name: [facility] : 1980 Age/S: 43 / M [id number] [address] [place] Unit #: [id number] Loc: [place] [address] Phys: Jcarlos Mora MD Acct: [id number] Dis Date: Status: REG ER PHONE #: [phone] Exam Date: 06/14/20237 FAX #: Reason: gen abdominal pain EXAMS: CPT: [id number] CT ABD PELVIS W/O CONT 81699 (Continued) Vascular: The aorta is grossly normal [...] RT(R)(CT) CTDI: DLP: Trnscb Date/Time: 06/14/2023 (2245) t.CARL.HV2 Orig Print D/T: S: 06/14/2023 (2248) PAGE 2 Signed ReportBASIC METABOLIC [id number] 22:09:00* Test Item Value Reference Range Interpretation [...] CA) 7.5 MG/DL 8.5-10.1 L HEPATIC FUNCTION [id number] 22:09:00* Test Item Value Reference Range Interpretation [...] code = ALKP) 71 Unit/L 50-136 N LOSYFM9150-55-79 22:09:00* Test Item Value Reference Range Interpretation Comme nts LIPASE (test code = LIP) 20 Unit/L 114-286 L TROP-I HIGH QHFNVKNNFGF4564-08-29 22:09:00* Test Item Value Reference Range Interpretation [...] quantitative results and URLs may varyby method. RGRXDWK5227-59-89 22:09:00* Test Item Value Reference Range Interpretation Comme nts ALCOHOL (test code = ALC) < 3 MG/DL 0-10 N - XR CHEST 1 [id number] 21:55:00 [facility] : 1980 Sex: M Name: BRUCE OSWALD [facility] : 1980 Age/S: 43 / M [address] [address] [place] Unit #: [id number] Loc: [place] [address] Phys: Jcarlos Mora MD Acct: [id number] Dis Date: Status: PRE ER PHONE #: [phone] Exam Date: 06/14/20232124 FAX #: Reason: chest pain EXAMS: CPT: [id number] XR CHEST1 V 77698 Fluoro Time: DAP (Gy m2): Air Kerma [...] unremar kable. IMPRESSION: No acute cardiopulmonary process. Electronically Signed by Gume Hollingsworth 06/14/2023 at 2155 Reported and signed by: Jacobo Willis D.O. CC: Jcarlos Mora MD PAGE 1 Signed Report Name: BRUCE OSWALD [place] : 1980 Age/S: 43 / M [id number] [address] [place] Unit#: [id number] Loc: [place] [address] Phys: Jcarlos Mora MD Acct: [id number] Dis Date: Status: PRE ER PHONE #: [phone] Exam Date: 06/14/20232124 FAX #: Reason: chest pain EXAMS: CPT: [id number] XR CHEST 1 V 42133 Fluoro Time: DAP (Gy m2): Air Kerma (mGy): (Continued) Technologist: Alistair Alcala, RT(R)(CT) Trnscb Date/Time: 06/14/2023 (2154) BarbaraJW22 Orig Print D/T: S: 06/14/2023 (2158) PAGE 2 Signed ReportComplete Metabolic Jjymq5884-22-36 09:11:50* Test Item Value Reference Range Interpretation Comme nts NA (test code = 6929375042) 134 mmol/L 135-145 L K (test code = 8729598811) 4.5 mmol/L 3.5-5.0 CL (test code = 7019125399) 102 mmol/L 98-108 CO2 TOTAL (test code = 5500555618) 15 mmol/L 23-31 L AGAP (test code = 6063364938) 17 2-16 H BUN (test code = 1614970940) 29 mg/dL 7-23 H GLUCOSE (test code = 5602875163) 192 mg/dL 70-110 H CREATININE (test code = 6369023409) 1.67 mg/dL 0.60-1.25 H TOTAL BILI (test code = 8366704341) 0.8 mg/dL 0.1-1.1 CALCIUM (test code = 7200798541) 9.9 mg/dL 8.6-10.6 T PROTEIN (test code = 8703457763) 8.8 g/dL 6.3-8.2 H ALBUMIN (test code = 5417740340) 5.4 g/dL 3.5-5.0 H ALK PHOS (test code = 9237818910) 89 U/L 34-122 ALTv (test code = 1742-6) 37 U/L 5-50 AST(SGOT) (test code = 2409313309) 54 U/L 13-40 H eGFR (test code = 2500476658) 45.6 mL/min/1.73m2 MARIA LUZ (test code = [...] imaging tests). Lab Interpretation (test code = 14058-9) Abnormal [facility] HospitalLipase, Goxti0632-05-60 09:11:50* Test Item Value Reference Range Interpretation Comme nts LIPASE (test code = 8358069423) 19 U/L 0-220 Lab Interpretation (test cod e = 52837-6) Normal [facility] HospitalCBC with Vuljuqgyakmk9010-60-13 08:59:28* Test Item Value Reference Range Interpretation [...] g/dL 31.2-35.0 H RDW-SD (test code = 21069-6) 44.0 fL 38.5-51.6 RDW-CV (test code = 788-0) 13.3 % 12.1-15.4 PLT (test code = 777-3) 150 See_Comment [Automated message] The system which generated this result transmitted reference range: 150 - 328 10*3/?L. The reference range was not used to interpret this result as normal/abnormal. MPV (test code = 62732-9) 12.0 fL 9.8-13.0 NRBC/100 WBC (test code = 8346438386) 0.0 See_Comment [Automated message] The system which generated this result transmitted reference range: 0.0 - 10.0 /100 WBCs. The reference range was not used to interpret this result as normal/abnormal. NRBC x10^3 (test code = 1515571066) See_Comment [Automated message] The system which generated this result transmitted reference range: 10*3/?L. The reference range was not used to interpret this result as normal/abnormal. GRAN MAT (NEUT) % (test code = 770-8) 83.1 % IMM GRAN % (test code = 2570623934) 0.40 % LYMPH % (test code = 736-9) 14.0 % MONO % (test code = 5905-5) 2.3 % EOS % (test code = 713-8) 0.0 % BASO % (test code = 706-2) 0.2 % GRAN MAT x10^3(ANC) (test code = 9382359713) 12.08 10*3/uL 1.99-6.95 H IMM GRAN x10^3 (test code = 6778399202) 0.06 10*3/uL 0.00-0.06 LYMPH x10^3 (test code = 731-0) 2.03 10*3/uL 1.09-3.23 MONO x10^3 (test code = 742-7) 0.33 10*3/uL 0.36-1.02 L EOS x10^3 (test code = 711-2) 0.06-0.53 L BASO x10^3 (test code = 704-7) 0.03 10*3/uL 0.01-0.09 Lab Interpretation (test code = 59571-6) Abnormal [facility] [id number] 13:30:00* Test Item Value Reference Range Interpretation Comme nts TROPONIN I (test code = 1086873707) 0.020 ng/mL See_Comment [Automated message] The system [...] biotin. ? Lab Interpretation (test code = 81477-6) Normal [facility] HospitalMagnesium Xncwv2576-32-10 11:02:00* Test Item Value Reference Range Interpretation Comme nts MAGNESIUM (test code = 5779927682) 2.0 mg/dL 1.7-2.4 Lab Interpretation (test cod e = 30700-6) Normal [facility] HospitalB[facility] (NA, K, CL, CO2, GLUCOSE, BUN, CREATININE, CA)2020-04-18 11:02:00* Test Item Value Reference Range Interpretation Comme nts NA (test code = 8619464740) 138 mmol/L 135-145 K (test code = 7120841762) 3.7 mmol/L 3.5-5 CL (test code = 4723141115) 112 mmol/L 98-108 H CO2 TOTAL (test code = 2697739066) 22 mmol/L 23-31 L AGAP (test code = 2779516965) 2-16 BUN (test code = 5024253726) 12 mg/dL 7-23 GLUCOSE (test code = 7339712097) 112 mg/dL 70-110 H CREATININE (test code = 9192614351) 0.96 mg/dL 0.6-1.25 CALCIUM (test code = 3137958964) 8.6 mg/dL 8.6-10.6 eGFR Calculation (Non-) (test code = 6739377732) mL/min/1.73m2 eGFR Calculation () (test code = 9612767635) mL/min/1.73m2 MARIA LUZ (test code = MARIA [...] imaging tests). Lab Interpretation (test code = 06337-7) Abnormal [facility] HospitalDrug Screen Panel 3 Rldas2419-26-91 22:11:00* Test Item Value Reference Range Interpretation Comme nts COMPA S (test code = 4770804946) Negative Negative BENZO S (test code = 9449730051) Negative Negative TRICYCLIC (test code = 9996383641) Negative Negative MARIA LUZ (test code = MARIA LUZ) Serum Drug Screen Cutoff Ranges Barbiturates ? ? - 3 mcg/mLBenzodiazepines ?- 50 ng/mLTCA ?- 300 ng/mL Test developed and characteristics determined by [facility] Laboratory Services. The results are to be used only for medical (i.e., treatment) purposes. Unconfirmed screening results must not be used for non-medical purposes (e.g., employment testing, legal testing). Lab Interpretation (test code = 45950-1) Normal [facility] HospitalLIPID PANEL (31701)(TOTAL CHOLESTEROL, TRIGLYCERIDES, HDL)2020-04-17 18:13:00* Test Item Value Reference Range Interpretation Comme nts CHOL (test code = 1535829516) 121 mg/dL 120-200 HDL (test code = 9780170814) 42 mg/dL >40 HDLC RATIO (test code = 6344047039) See_Comment [Automated [employer] LS15a ge] The system which generated this result transmitted reference range: <=5.0. The reference range was not used to interpret this result as normal/abnormal. TRIG (test code = [id number]) 41 mg/dL 30-170 LDL CHOL (test code = 38045-7) 71 mg/dL See_Comment [Automated [employer] LS15a ge] The system which generated this result transmitted reference range: <=160. The reference range was not used to interpret this result as normal/abnormal. VLDL (test code = [id number]) 8 mg/dL 5-60 Lab Interpretation (test code = 70825-1) [facility] IYI-LUY6481-28-11 17:06:00* Test Item Value Reference Range Interpretation Comme nts NT-proBNP (test code = 7977736860) 51 pg/mL See_Comment [Automated message] The system which generated this result transmitted reference range: <=125. The reference range was not used to interpret this result as normal/abnormal. MARIA LUZ (test code = MARIA LUZ) Biotin has been reported to cause a negative bias, interpret results relative to patient's use of biotin. Lab Interpretation (test code = 24594-9) [facility]ATING QUKJCBE2707-67-85 16:58:00 * Test Item Value Reference Range Interpretation Comme nts TSH (test code = 8383340084) See_Comment [Automated Newco LS15a Singspiel] The system which generated this result transmitted reference range: 0.45 - 4.70 mIU/L. The reference range was not used to interpret this result as normal/abnormal. Lab Interpretation (test code = 26470-4) [facility] HospitalD-OJWQQ5385-73-75 16:56:00* Test Item Value Reference Range Interpretation Comments D-DIMER (test code = 6210102653) <0.27 See_Comment [Automated message] The system which [...] a diagnosis. Lab Interpretation (test code = 93062-4) [facility] HospitalProthrombin Time / [id number] 16:43:00* Test Item Value Reference Range Interpretation Comme nts PROTIME PATIENT (test code = 5964-2) See_Comment [Automated messa ge] The system which generated this result transmitted reference range: 12.0 - 14.7 Seconds. The reference range was not used to interpret this result as normal/abnormal. INR (test code = 6301-6) Normal INR <1.1; Warfarin Therapeutic range 2.0 to 3.0 or 2.5 to 3.5, depending upon the indications. Lab Interpretation (test code = 72213-4) [facility] HospitalXR CHEST 1 [id number] 16:42:54No acute cardiopulmonary abnormality. Preliminary Report Dictated [...] this study and agree with theabove report.[facility] HospitalPhosphorus Ylvbc6770-76-92 16:09:00* Test Item Value Reference Range Interpretation Comme nts PHOSPHORUS (test code = 2469604829) 2.5 mg/dL 2.5-5 Lab Interpretation (test cod e = 61157-6) [facility] HospitalGlycosylated Hemoglobin (A1C)2020-04-17 15:56:00* Test Item Value Reference Range Interpretation Comme nts HGB A1C (test code = 4548-4) 5.5 % 4-6 MARIA LUZ (test code = MARIA LUZ) %A1C (NGSP) Interpretation (ADA)4.8-5.6 ? ? Normal or (Non-Diabetic Range)5.7-6.4 ? ? Increased Risk (Pre-Diabetic)>6.5 ?Diabetes Indicated Lab Interpretation (test code = 48698-2) [facility] HospitalTROPONIN X3554-21-37 15:39:00* Test Item Value Reference Range Interpretation Comme nts TROPONIN I (test code = 0789334526) 0.031 ng/mL See_Comment [Automated message] The system [...] biotin. ? Lab Interpretation (test code = 34668-9) [facility]COVID-[facility] (ID NOW RAPID TESTING)2020-04-17 14:00:00* Test Item Value Reference Range Interpretation Comme nts SARS-CoV-2 Rapid ID NOW (test code = 93067-3) Not Detected Not Detected MARIA LUZ (test code = MARIA LUZ) ID NOW COVID-19 As say is an isothermal nucleic acid amplification test intended for the qualitative detection of nucleic acid from SARS-CoV-2 viral RNA in nasopharyngeal (DIGITAL STRATEGY DIRECTOR) specimens. It is used under Emergency Use [...] clinically indicated. Lab Interpretation (test code = 56790-2) Normal [facility] CARE VENOUS BLOOD [id number] 13:25:00 * Test Item Value Reference Range Interpretation Comme nts PH (test code = 1098196647) 7.32-7.42 PCO2 NAS (test code = 7394922742) See_Comment L [Automated messa ge] The system which generated this result transmitted reference range: 41 - 51 mmHg. The reference range was not used to interpret this result as normal/abnormal. PO2 NAS (test code = 1386432746) See_Comment [Automated messa ge] The system which generated this result transmitted reference range: 25 - 40 mmHg. The reference range was not used to interpret this result as normal/abnormal. HCO3 NAS (test code = 3660021538) See_Comment L [Automated messa ge] The system which generated this result transmitted reference range: 24 - 28 mEq/L. The reference range was not used to interpret this result as normal/abnormal. AC VBE(BEAKER) (test code = 1375105177) mEq/L Lab Interpretation (test code = 11258-7) [facility]normal [facility] HospitalCREATINE FMHPPU2437-00-67 13:01:00* Test Item Value Reference Range Interpretation Comme nts CK (test code = 5389197484) 174 U/L 33-194 Lab Interpretation (test cod e = 76345-0) [facility] HospitalCB WITH TLPGJIOESAPA8060-58-73 12:32:00* Test Item Value Reference Range Interpretation [...] g/dL 31.2-35 H RDW-SD (test code = 25484-7) 43.5 fL 38.5-51.6 RDW-CV (test code = 788-0) 12.9 % 12.1-15.4 PLT (test code = 777-3) See_Comment [Automated messa ge] The system which generated this result transmitted reference range: 150 - 328 10*3/?L. The reference range was not used to interpret this result as normal/abnormal. MPV (test code = 34027-8) 11.6 fL 9.8-13 NRBC/100 WBC (test code = 9309927981) See_Comment [Automated RES Software ssage] The system which generated this result transmitted reference range: 0.0 - 10.0 /100 WBCs. The reference range was not used to interpret this result as normal/abnormal. NRBC x10^3 (test code = 1662123890) <0.01 See_Comment [Automated messa ge] The system which generated this result transmitted reference range: 10*3/?L. The reference range was not used to interpret this result as normal/abnormal. GRAN MAT (NEUT) % (test code = 770-8) 43.3 % IMM GRAN % (test code = 8561062600) 0.60 % LYMPH % (test code = 736-9) 46.1 % MONO % (test code = 5905-5) 8.3 % EOS % (test code = 713-8) 1.3 % BASO % (test code = 706-2) 0.4 % GRAN MAT x10^3(ANC) (test code = 7138606910) 5.12 10*3/uL 1.99-6.95 IMM GRAN x10^3 (test code = 1065960895) 0.07 10*3/uL 0-0.06 H LYMPH x10^3 (test code = 731-0) 5.45 10*3/uL 1.09-3.23 H MONO x10^3 (test code = 742-7) 0.98 10*3/uL 0.36-1.02 EOS x10^3 (test code = 711-2) 0.15 10*3/uL 0.06-0.53 BASO x10^3 (test code = 704-7) 0.05 10*3/uL 0.01-0.09 Lab Interpretation (test code = 95721-3) [facility]normal [facility] HospitalTROPONIN [id number] 12:29:00* Test Item Value Reference Range Interpretation Comme nts TROPONIN I (test code = 4143649758) 0.038 ng/mL See_Comment H [Automated message] The [...] biotin. ? Lab Interpretation (test code = 28262-5) [facility]normal [facility] HospitalCOMP. METABOLIC PANEL (51759)2020-04-17 12:18:00* Test Item Value Reference Range Interpretation Comme nts NA (test code = 0119140320) 135 mmol/L 135-145 K (test code = 8382317333) 3.6 mmol/L 3.5-5 CL (test code = 6267972909) 106 mmol/L 98-108 CO2 TOTAL (test code = 4265495635) 16 mmol/L 23-31 L AGAP (test code = 5449637655) 2-16 BUN (test code = 3216561266) 29 mg/dL 7-23 H GLUCOSE (test code = 3240991891) 157 mg/dL 70-110 H CREATININE (test code = 1713498553) 1.53 mg/dL 0.6-1.25 H TOTAL BILI (test code = 9563552309) 0.4 mg/dL 0.1-1.1 CALCIUM (test code = 4692243218) 9.5 mg/dL 8.6-10.6 T PROTEIN (test code = 1822882151) 8.3 g/dL 6.3-8.2 H ALBUMIN (test code = 2602235077) 4.7 g/dL 3.5-5 ALK PHOS (test code = 3676643658) 74 U/L 34-122 ALTv (test code = 1742-6) 29 U/L 5-50 AST(SGOT) (test code = 3640210599) 28 U/L 13-40 eGFR Calculation (Non-) (test code = 8335585846) mL/min/1.73m2 eGFR Calculation () (test code = 5321724624) mL/min/1.73m2 MARIA LUZ (test code = MARIA [...] imaging tests). Lab Interpretation (test code = 12028-4) [facility]normal [facility] HospitalLIPASE, HABYG1760-29-71 12:17:00* Test Item Value Reference Range Interpretation Comme nts LIPASE (test code = 0916164479) 102 U/L 0-220 Lab Interpretation (test cod e = 25761-7) [facility] HospitalBAT[facility] (NA, K, CL, CO2, GLUCOSE, BUN, CREATININE, CA)2020-04-09 11:06:00* Test Item Value Reference Range Interpretation Comme nts NA (test code = 9917038921) 139 mmol/L 135-145 K (test code = 5345990014) 4.1 mmol/L 3.5-5 CL (test code = 8478214234) 111 mmol/L 98-108 H CO2 TOTAL (test code = 8475132028) 24 mmol/L 23-31 AGAP (test code = 2651982147) 2-16 BUN (test code = 7258553443) 14 mg/dL 7-23 GLUCOSE (test code = 8710562996) 98 mg/dL 70-110 CREATININE (test code = 1597254591) 0.90 mg/dL 0.6-1.25 CALCIUM (test code = 0491669901) 8.5 mg/dL 8.6-10.6 L eGFR Calculation (Non-) (test code = 2150168878) mL/min/1.73m2 eGFR Calculation () (test code = 8535804747) mL/min/1.73m2 MARIA LUZ (test code = MARIA [...] imaging tests). Lab Interpretation (test code = 76061-6) Abnormal [facility] WITH SMQTIEVFNBFV3264-10-12 10:49:00* Test Item Value Reference Range Interpretation Comme nts WBC (test code = 6690-2) See_Comment H [Automated Biopharmacopae] The system which generated this result transmitted reference range: 4.20 - 10.70 10*3/?L. The reference range was not used to interpret this result as normal/abnormal. RBC (test code = 789-8) See_Comment L [Automated Biopharmacopae] The system which generated this result transmitted [...] 34.6 g/dL 31.2-35 RDW-SD (test code = 27987-3) 47.0 fL 38.5-51.6 RDW-CV (test code = 788-0) 13.7 % 12.1-15.4 PLT (test code = 777-3) See_Comment L [Automated messa ge] The system which generated this result transmitted reference range: 150 - 328 10*3/?L. The reference range was not used to interpret this result as normal/abnormal. MPV (test code = 68967-4) 12.2 fL 9.8-13 NRBC/100 WBC (test code = 3495437649) See_Comment [Automated RES Software ssage] The system which generated this result transmitted reference range: 0.0 - 10.0 /100 WBCs. The reference range was not used to interpret this result as normal/abnormal. NRBC x10^3 (test code = 5466751222) <0.01 See_Comment [Automated messa ge] The system which generated this result transmitted reference range: 10*3/?L. The reference range was not used to interpret this result as normal/abnormal. GRAN MAT (NEUT) % (test code = 770-8) 61.9 % IMM GRAN % (test code = 5278898369) 0.40 % LYMPH % (test code = 736-9) 30.3 % MONO % (test code = 5905-5) 6.9 % EOS % (test code = 713-8) 0.2 % BASO % (test code = 706-2) 0.3 % GRAN MAT x10^3(ANC) (test code = 1847650590) 7.44 10*3/uL 1.99-6.95 H IMM GRAN x10^3 (test code = 8146102641) 0.05 10*3/uL 0-0.06 LYMPH x10^3 (test code = 731-0) 3.64 10*3/uL 1.09-3.23 H MONO x10^3 (test code = 742-7) 0.83 10*3/uL 0.36-1.02 EOS x10^3 (test code = 711-2) <0.03 0.06-0.53 L BASO x10^3 (test code = 704-7) 0.04 10*3/uL 0.01-0.09 Lab Interpretation (test code = 13405-9) [facility]CREATINE GWBJFQ0623-21-16 10:38:00* Test Item Value Reference Range Interpretation Comme nts CK (test code = 3134302653) 569 U/L 33-194 H Lab Interpretation (test cod e = 61471-7) Abnormal [facility] METABOLIC PANEL (NA, K, CL, CO2, GLUCOSE, BUN, CREATININE, CA)2020-04-08 11:23:00* Test Item Value Reference Range Interpretation Comme nts NA (test code = 4811737276) 136 mmol/L 135-145 K (test code = 9677989122) 5.2 mmol/L 3.5-5 H CL (test code = 3507622211) 107 mmol/L 98-108 CO2 TOTAL (test code = 7342881931) 22 mmol/L 23-31 L AGAP (test code = 7562091738) 2-16 BUN (test code = 2493460257) 24 mg/dL 7-23 H GLUCOSE (test code = 1704191759) 132 mg/dL 70-110 H CREATININE (test code = 4733919920) 1.30 mg/dL 0.6-1.25 H CALCIUM (test code = 1297976476) 8.8 mg/dL 8.6-10.6 eGFR Calculation (Non-) (test code = 3482097406) mL/min/1.73m2 eGFR Calculation () (test code = 2167278722) mL/min/1.73m2 MARIA LUZ (test code = MARIA [...] imaging tests). Lab Interpretation (test code = 07342-4) [facility]normal [facility]COVID[facility] (ID NOW RAPID TESTING)2020-04-08 05:54:00* Test Item Value Reference Range Interpretation Comme nts SARS-CoV-2 Rapid ID NOW (test code = 50511-7) Not Detected Not Detected MARIA LUZ (test code = MARIA LUZ) ID NOW COVID-19 As say is an isothermal nucleic acid amplification test intended for the qualitative detection of nucleic acid from SARS-CoV-2 viral RNA in nasopharyngeal (DIGITAL STRATEGY DIRECTOR) specimens. It is used under Emergency Use [...] clinically indicated. Lab Interpretation (test code = 86300-1) [facility] HospitalTROPONIN M9971-03-72 05:01:00* Test Item Value Reference Range Interpretation Comme nts TROPONIN I (test code = 1111797970) <0.012 See_Comment [Automated message] The system which [...] biotin. ? Lab Interpretation (test code = 88032-2) Normal [facility] HospitalTr[facility] (hulmboldtnin V4418-74-87 04:38:00* Test Item Value Reference Range Interpretation Comme nts TROPONIN I (test code = 1294726831) <0.012 See_Comment [Automated message] The system which [...] biotin. ? Lab Interpretation (test code = 74758-7) [facility] (NA, K, CL, CO2, GLUCOSE, BUN, CREATININE, CA)2020-04-08 04:28:00* Test Item Value Reference Range Interpretation Comme nts NA (test code = 8543930378) 136 mmol/L 135-145 K (test code = 5514561870) 4.3 mmol/L 3.5-5 CL (test code = 9654121552) 97 mmol/L 98-108 L CO2 TOTAL (test code = 6436639761) 22 mmol/L 23-31 L AGAP (test code = 3937910860) 2-16 H BUN (test code = 7762560117) 31 mg/dL 7-23 H GLUCOSE (test code = 9634127922) 163 mg/dL 70-110 H CREATININE (test code = 5728395519) 2.80 mg/dL 0.6-1.25 H CALCIUM (test code = 3023038261) 10.9 mg/dL 8.6-10.6 H eGFR Calculation (Non-) (test code = 4992000224) mL/min/1.73m2 eGFR Calculation () (test code = 8254606899) mL/min/1.73m2 MARIA LUZ (test code = MARIA [...] imaging tests). Lab Interpretation (test code = 14689-7) [facility]normal [facility] HospitalHepatic Function Panel (ALB, T.PRO, BILI T, BU/BC, ALT, AST, ALK PHOS)2020-04-08 04:28:00* Test Item Value Reference Range Interpretation Comme nts TOTAL BILI (test code = 5276345762) 0.6 mg/dL 0.1-1.1 BILI UNCON (test code = 6136822706) 0.6 mg/dL 0.1-1.1 BILI CONJ (test code = 8582025267) 0.0 mg/dL 0-0.3 T PROTEIN (test code = 5014674303) 10.4 g/dL 6.3-8.2 H ALBUMIN (test code = 7526322602) 5.8 g/dL 3.5-5 H ALK PHOS (test code = 4492533442) 104 U/L 34-122 ALTv (test code = 1742-6) 35 U/L 5-50 AST(SGOT) (test code = 7217353674) 41 U/L 13-40 H Lab Interpretation (test cod e = 21799-1) Abnormal [facility] HospitalLipase Ygnql4441-40-59 04:28:00* Test Item Value Reference Range Interpretation Comme nts LIPASE (test code = 5607475725) 22 U/L 0-220 Lab Interpretation (test cod e = 61008-3) Normal [facility] HospitalCREATINE EQMMSB1518-47-55 04:27:00* Test Item Value Reference Range Interpretation Comme nts CK (test code = 4165700663) 440 U/L 33-194 H Lab Interpretation (test cod e = 39782-7) Abnormal [facility] WITH JJIPEKFAKTLO8599-91-19 04:16:00* Test Item Value Reference Range Interpretation [...] g/dL 31.2-35 H RDW-SD (test code = 88093-1) 44.6 fL 38.5-51.6 RDW-CV (test code = 788-0) 13.4 % 12.1-15.4 PLT (test code = 777-3) See_Comment [Automated message] The system which generated this result transmitted reference range: 150 - 328 10*3/?L. The reference range was not used to interpret this result as normal/abnormal. MPV (test code = 65682-6) 12.7 fL 9.8-13 NRBC/100 WBC (test code = 6874822009) See_Comment [Automated message] The system which generated this result transmitted reference range: 0.0 - 10.0 /100 WBCs. The reference range was not used to interpret this result as normal/abnormal. NRBC x10^3 (test code = 4835912540) <0.01 See_Comment [Automated message] The system which generated this result transmitted reference range: 10*3/?L. The reference range was not used to interpret this result as normal/abnormal. GRAN MAT (NEUT) % (test code = 770-8) 81.0 % IMM GRAN % (test code = 4604917691) 0.80 % LYMPH % (test code = 736-9) 14.8 % MONO % (test code = 5905-5) 2.9 % EOS % (test code = 713-8) 0.1 % BASO % (test code = 706-2) 0.4 % GRAN MAT x10^3(ANC) (test code = 6323873617) 12.79 10*3/uL 1.99-6.95 H IMM GRAN x10^3 (test code = 7259676769) 0.12 10*3/uL 0-0.06 H LYMPH x10^3 (test code = 731-0) 2.34 10*3/uL 1.09-3.23 MONO x10^3 (test code = 742-7) 0.46 10*3/uL 0.36-1.02 EOS x10^3 (test code = 711-2) <0.03 0.06-0.53 L BASO x10^3 (test code = 704-7) 0.06 10*3/uL 0.01-0.09 Lab Interpretation (test code = 78427-3) Abnormal [facility] / [facility] - DRUG SCREEN AQYBLX3134-93-12 02:25:00* Test Item Value Reference Range Interpretation Comme nts BENZO U (test code = 4142497424) Negative Negative COMPA U (test code = 4687014566) Negative Negative AMPHET (test code = 6923691048) Negative Negative THC (test code = 6814727045) Negative Negative METHADONE (test code = 9133449029) Negative Negative Meth U (test code = 9156127716) Presumptive Positive Negative A OPIATES (test code = 5693736514) Negative Negative Cocaine Metabolite (test code = 4356932980) Presumptive Positive Negative A PROPOXY (test code = 3542060624) Negative Negative Tric U (test code = 2076684819) Negative Negative PCP (test code = 6391141618) Negative Negative OXYCOD (test code = 9991059719) Negative Negative MARIA LUZ (test code = [...] legal testing). Lab Interpretation (test code = 36769-5) [facility]normal [facility] HospitalUrinalysis2020-07-02 02:19:00* Test Item Value Reference Range Interpretation Comme nts APPEARANCE (test code = 8763129558) Cloudy Clear A COLOR (test code = 0949464710) Reyna Yellow A PH (test code = 1106781798) 4.8-8.0 SP GRAVITY (test code = 4948898599) 1.003-1.030 GLU U QUAL (test code = 3514101314) Normal Normal BLOOD (test code = 8467635968) Negative Negative INTERFERENCE FRO M ASCORBIC ACID MAY CAUSE FALSE NEGATIVE RESULT KETONES (test code = 4677614646) 5 mg/dL Negative A PROTEIN (test code = 2887-8) 100 mg/dL Negative A UROBILIN (test code = 7070885888) 2.0 mg/dL Normal A BILIRUBIN (test code = 1979549383) Negative Negative NITRITE (test code = 3748543418) Negative Negative [place] (test code = 7263037792) Negative Negative RBC/HPF (test code = 0571640872) <1 See_Comment [Automated Biopharmacopae] The system which generated this result transmitted reference range: 0 - 3 HPF. The reference range was not used to interpret this result as normal/abnormal. WBC/HPF (test code = 7504667596) See_Comment [Automated Biopharmacopae] The system which generated this result transmitted reference range: 0 - 5 HPF. The reference range was not used to interpret this result as normal/abnormal. BACTERIA (test code = 8266805533) Few Negative A MUCOUS (test code = 2935040629) Moderate Negative LPF A SQ EPITH (test code = 9780918676) HPF Lab Interpretation (test code = 06987-0) [facility]normal [facility] Notes Date/Time Note Provider Source 2023-10-15 15:30:18 xhUOHP+4wA4I9/f0R7JxWomezGcFovRWO2qRQ8JD X chFLdoyjHEGk45cTy+aISnH9461-86-46L94:30:1 8 Patient feeling better at this time. Take meds as prescribed. Follow up with pcp. Return if worsening condition. 56731-4Ahmyrcnkx department QogyES2519-81-98X26:30:56Emergen department NoteTXT1.2.840.083251.1.13.104.2.7.2.7278 79|[id number] for patient tdwr23188-3TgdwNTDGXIHJOARIsmgaiplh C-CDA narrative [id number] D Wierzbicki RN[address] MatzTjxsuzmfeRlzaninauEZMF9448314893JFQWW OPLKHVZLBJLWOONVJ7454-17-31Z35:30:561.2.8 40.826063.1.72.3.15|1.2.840.606485.1.13.1 04.2.7.2.727879_[id number] Robert Lorenz RN [facility] 2023-10-15 13:10:01 Y+rg6dHFzDcUrULrDtCA4QF+6zgyfnzGSLyZ0hVH z jJb/TrKLbBaEhdIXPwE9CUU1524-76-05B45:10:[address] [address]-7Fcobrcibu department CnjrAM1983-03-20I25:10:10[facility] NoteTXT1.2.840.897671.1.13.104.2.7.2.7278 79|[id number] for patient yqmx08330-6NkidBCUIIWSMJVUSqfuhetuj C-CDA narrative text[id number] GEZMYDMJAZYMDVWUY2710-27-22Y13:10:101.2.8 40.621492.1.72.3.15|1.2.840.047268.1.13.1 04.2.7.2.727879_[id number] [facility] 2023-10-15 12:03:24 Whs/MWR+wSM7Sytyu5H+ZO6ezYlEEGB+6NQRH9nh t Dg5O7+g3aYri6D1VEEc4pz69132-92-71Z58:03:2 4 Patient arrived via ems c/o of left chest pressure feeling someone sitting on his chest nonradiating pain and complaining of shortness of breath. Patient was seen here last night for the same reasons. Diagnosed with the flu several days ago and has not taken any medications prescribed. [employer] give 1 nitro, 325 mg aspirin, 20 right acHx: HTN 73298-2Ckxeftmqh department Triage wfzjRS8444-63-57R52:06:09[facility] Triage noteTXT1.2.840.003332.1.13.104.2.7.2.7278 79|[id number] for patient oxwa38492-0Zwgkgpyqe department NoteLNNARRATIVEFormatted C-CDA narrative [id number] M Felix RNUT[address] [id number] SJGWCEDSAJYNXSVCJ5423-01-62Z63:06:091.2.8 40.032937.1.72.3.15|1.2.840.914792.1.13.1 04.2.7.2.727879_[id number] Chichi Roberts Jeet MAURICIO [facility] - Health 2023-10-15 12:01:00 e6+z1bshR73zziOW+WDG/DDNCxVgaytIGCyIDMFb s sQiXx1PZQtAfx0exTFKI3A90246-97-08F43:01:0 0Associated Order(s): EKG-12 Lead ROUTINE ONCEPre-Procedure Diagnose(s): Chest pain, unspecified typePost-Procedure Diagnose(s): Chest pain, unspecified type [facility] Emergency Department NotePatient Name: Bruce OswaldDate of : 1980 43 year old maleTreatment Room: Room/bed info not foundMedical Record Number: [id number] Care Physician: PATIENT DOES NOT HAVE A PCPPatient Escorted by: Self [9]Mode of Arrival: EMS - [facility] ([place]) [43]EMS Treatment Prior to ED Arrival:Travel and Exposure Screening:SymptomsDoes patient have any of these symptoms?: (not recorded)Exposure ScreeningHas patient had contact with someone with a communicable disease in the last month?: (not recorded)Diseases exposed to:: (not recorded)Is Patient ?: (not recorded)Exposure Date: (not recorded)Chief Complaint:Chief ComplaintPatient presents withChest PainHistory of Present Illness:43 year old male with hx of HTN, was seen last night for the chest pain, comes in again today for he states the pain is worsening, left-sided chest discomfort, feels like "his chest is caving in", states he feels short of breath and feels tired. States it is mostly constant now, denies any similar events in the past. Had cough but denies now, denies fever nausea no vomiting no diarrhea no abdominal pain denies trauma smokes cigarettes last used cocaine 5 days ago, denies alcohol. History of hypertension denies all other medical problems. No dizziness no headache no vision changes no numbness or weakness no abdominal pain no UTI symptoms. Patient had 2 negative troponins last night and a normal chest x-ray and was discharged, patient was unable to get to the pharmacy to picking tech any medications. States he feels thirsty. No recent long travel ,no broken bones, no cancer, no personal or family history of blood clots. No unilateral leg pain or swellingHistory provided by: Patient and medical recordsLanguage bioprocessing manufacturing technician used: Rigoberto Medical History/Immunizations:History reviewed. No pertinent past medical history.Allergies:No Known AllergiesPast Social History:Tobacco UseEvery DaySmokeless Tobacco: Never used smokeless tobacco.Past Surgical History:History reviewed. No pertinent surgical history.Review of Systems:Review of SystemsConstitutional: Positive for fatigue. Negative for chills and fever.HENT: Negative.Eyes: Negative.Respiratory: Negative.Cardiovascular: Positive for chest pain. Negative for palpitations and leg swelling.Gastrointestinal: Positive for nausea. Negative for abdominal pain, diarrhea and vomiting.Genitourinary: Negative.Musculoskeletal: Negative.Chest painSkin: Negative.Neurological: Negative.Psychiatric/Behavioral: Negative for confusion.All other systems reviewed and are negative.Physical Exam:ED Triage VitalsWeightActual or estimatedHeightBPPulseRespTempTemp nmzWrK9Fqxylaxd onPhysical ExamVitals and nursing note reviewed.Constitutional:General: He is not in acute distress.Appearance: He is not ill-appearing.Comments: Patient appears mildly anxious, appears slightly short of breath when talking. Alert and oriented, interactive, non toxic appearing, no severe distress or labored breathingHENT:Head: Normocephalic.Right Ear: External ear normal.Left Ear: External ear normal.Nose: Nose normal.Mouth/Throat:Mouth: Mucous membranes are dry.Pharynx: Oropharynx is clear.Comments: Mildly dry mucus membranesEyes:General: No scleral icterus.Cardiovascular:Rate and Rhythm: Regular rhythm. Tachycardia present.Heart sounds: Normal heart sounds.Pulmonary:Breath sounds: Rales present.Comments: Scant rales at bilateral base, good air exchange bilateral, no resp distress, no accessory muscle use, no wheezeAbdominal:Palpations: Abdomen is soft.Tenderness: There is no abdominal tenderness.Musculoskeletal:General: Normal range of motion.Cervical back: Normal range of motion.Right lower leg: No edema.Left lower leg: No edema.Skin:General: Skin is warm.Neurological:General: No focal deficit present.Mental Status: He is alert and oriented to person, place, and time.Psychiatric:Thought Content: Thought content normal.Radiology:No orders to displayLab Results:Lab Results - No data to displayEKG:If EKG completed, see Procedure Note.Orders and Treatments:No orders of the defined types were placed in this encounter.No orders of the defined types were placed in this encounter.First Provider Eval:ED EventsDate/Time Event User Djbscwsu44/08/24 1204 Medical Screening Begins FABIAN LAWRENCE MD --10/15/23 120 First Provider Evaluation FABIAN LAWRENCE MD --ED COURSEED Course as of 10/15/23 1400Mon Oct 15, Discussed all the results with the patient, states he feels slightly better while getting the hydration. He understands his symptoms are likely related to the flu. Follow-up and return instructions explained. Patient understands and agrees with plan [CD]1354 IMPRESSION1. No pulmonary embolism. AIDOC (computer aided detection software)confirms no filling defects in the pulmonary artery branches.2. Findings in the lungs suggest mild atypical pneumonia.Preliminary Report Dictated by Resident: Jordin Hurtado positive flu, normal oxygenation, likely viral pneumonia/inflammation from the FLu [CD]1344 WBC x10^3: 6.12Severe systemic infection less likely [CD]1323 TROPONIN I: 0.010ACS less likley, 3 negative trops since last nightMS more likely, awaiting CTA to rule out PE [CD]1321 NT-proBNP: 195CHF unlikely [CD]1318 K(!): 3.2Replaced with PO potassium [CD]1318 CREATININE: 0.93No CAESAR [CD]1317 NA(!): 134IVF NS given [CD]1317 LIPASE: 76No pancreatitis [CD]1304 LACTIC ACID WHOLE BLOOD: 1.50Severe systemic infection less likely [CD]1304 Rapid Influenza A(!): PositiveFlu A positive [CD]1258 SARS-CoV-2 Rapid ID NOW: Not DetectedNo Covid [CD]1258 D DIMER(!): 0.65CTA ordered [CD]1207 XR result from 12 hours agoFINDINGS:There is a normal cardiomediastinal silhouette. The pulmonary vascularitydoes not appear congested. The lungs appear clear demonstrating no focalpulmonary consolidation, pleural effusion, or pneumothorax. No acuteosseous process is observed.IMPRESSIONNo radiographic evidence for an acute or active process of the chest[CD]1206 43 year old male with hx of HTN, was seen last night for the chest pain, comes in again today for he states the pain is worsening, left-sided chest discomfort, feels like "his chest is caving in", states he feels short of breath and feels tired. Had cough but denies now, denies fever nausea no vomiting no diarrhea no abdominal pain denies trauma smokes cigarettes last used cocaine 5 days ago, denies alcohol. History of hypertension denies all other medical problems. No dizziness no headache no vision changes no numbness or weakness no abdominal pain no UTI symptoms. Patient had 2 negative troponins last night and a normal chest x-ray and was discharged, patient was unable to get to the pharmacy to picking tech any medications. States he feels thirsty.Differential includes but not limited to hypertension, ACS, musculoskeletal pain, cocaine chest pain, dehydration, pulmonary pathology less likely with normal chest x-ray last night and no longer with cough and normal oxygenation.Plan is symptom control, repeat labs, hydration monitor and reevaluation. Patient understands and agrees with plan [CD]ED Course User Index[CD] Fabian Lawrence MDDiagnosis/Impression as of 10/15/23 1400Chest pain, unspecified typeNauseaDehydrationInfluenza AHypertension, unspecified typeHypokalemiaProcedures:EKG-12 Lead ROUTINE ONCEDate/Time: 10/15/2023 1:22 PMPerformed by: Fabian Lawrence MDAuthorized by: Fabian Lawrence MDECG interpreted by ED Physician in the absence of a substitute teacher: yesPrevious ECG:Previous ECG: Compared to currentComparison ECG info: 10/14/2023Interpretation:Interpretation: abnormalRate:ECG rate: 81ECG rate assessment: normalRhythm:Rhythm: sinus rhythmEctopy:Ectopy: noneQRS:QRS axis: NormalQRS intervals: NormalQRS conduction: normalST segments:ST segments: Non-specificT waves:T waves: normalQ waves:Abnormal Q-waves: presentQ waves: II, III and aVFOther findings:Other findings: LAE and LVHMDM:Medical Decision MakingSee ED course for MDMProblems Addressed:Chest pain, unspecified type: acute illness or injuryDehydration: acute illness or injuryHypertension, unspecified type: chronic illness or injuryHypokalemia: acute illness or injuryInfluenza A: acute illness or injury with systemic symptomsNausea: acute illness or injuryAmount and/or Complexity of Data ReviewedExternal Data Reviewed: labs, radiology and notes.Labs: ordered. Decision-making details documented in ED Course.Radiology: ordered. Decision-making details documented in ED Course.ECG/medicine tests: ordered and independent interpretation performed. Decision-making details documented in ED Course.Details: See procedure noteRiskOTC drugs.Prescription drug management.Flowsheet Documentation:Scoring Tools:No data recordedDisposition/Condition:ED DispositionNoneDischarge Medications:Patient's MedicationsSTART taking these medicationsNo medications on fileCONTINUE taking these medications which have NOT CHANGEDAMOXICILLIN 500 MG CAPSULE Take 1 capsule by mouth in the morning and 1 capsule at noon and 1 capsule in the evening.DICYCLOMINE 20 MG TABLET Take 1 tablet by mouth 4 (four) times daily.HYDRALAZINE 10 MG TABLET Take 1 tablet by mouth in the morning and 1 tablet at noon and 1 tablet in the evening.IBUPROFEN 600 MG TABLET Take 1 tablet by mouth every 6 (six) hours as needed for Pain (scale 4-6).IBUPROFEN 800 MG TABLET Take 1 tablet by mouth every 6 (six) hours as needed for Pain (scale 4-6).LORATADINE 10 MG TABLET Take 1 tablet by mouth daily.ONDANSETRON 4 MG DISINTEGRATING TABLET Take 1 tablet by mouth every 4 (four) hours as needed for Nausea and Vomiting (N/V).ONDANSETRON 4 MG DISINTEGRATING TABLET Take 1 tablet by mouth every 8 (eight) hours as needed for Nausea and Vomiting (N/V).PANTOPRAZOLE (PROTONIX) 40 MG EC TABLET Take 1 tablet by mouth in the morning.PROMETHAZINE 25 MG TABLET Take 1 tablet by mouth every 6 (six) hours as needed for Nausea and Vomiting (N/V) or N/V unresponsive to Ondansetron.TRAMADOL 50 MG TABLET Take 1 tablet by mouth every 6 (six) hours as needed for Pain (scale 7-10). Indications: acute painSTART taking Modified Medications as PrescribedNo medications on fileSTOP taking these medicationsNo medications on fileFollow-up:Electronically signed by:Fabian Lawrence MD10/15/23 1401 90980-1Spncqkfiq Emergency department WtbuLH5307-14-19N77:01:31Physician Emergency department NoteTXT1.2.840.448598.1.13.104.2.7.2.7278 79|[id number] for patient atyk42720-6Zajlhwcks department NoteLNNARRATIVEFormatted C-CDA narrative textUT41 Hill [id number] GXMGVJRHDWODCVKWI5153-62-31G86:01:311.2.8 40.988427.1.72.3.15|1.2.840.357918.1.13.1 04.2.7.2.727879_[id number] [facility] 2023-10-15 00:33:35 uBSD8bDMu7YNd7BxLEiGsSwr/QvjoWv/T7KlbiTp s JpFDrLyEjaxEG0TYex0G3zO8331-01-27S09:33:3 5 PT D/C home. GCS15, VS stable. Given D/C paperwork. Pt ambulatory at time of discharge. Pt educated on med usage, follow up care, s/s worsening condition, need for hydration. Pt verbalized understanding.Pt ambulated from ED in NAD. 36796-2Eposzmlom department GglbHE3560-90-68D12:33:48[facility] NoteTXT1.2.840.865531.1.13.104.2.7.2.7278 79|[id number] for patient zqbi10706-7WnlzKOYQUDKHNEZHewvawlok C-CDA narrative [id number] E Linkes RN[address] [id number] AACCPMOCAEWGVZDGI1328-20-16A72:33:481.2.8 40.039165.1.72.3.15|1.2.840.004447.1.13.1 04.2.7.2.727879_[id number] Tasneem Hobson Dat MAURICIO [facility] 2023-10-14 20:17:52 mZUOsfFX31mRVEVOvBNQB/fd79DRAXqZvu2hJySd o TlYpejuphT7vUq9DhdcYHdg5146-95-95P19:17:5 2 Vomiting for 2-3 day, "can't keep anything down".Chest pain started started 3 days ago. Describes as an intermittent throbbing pain to lest side of chest.Coughing up phlegmHX: HTN (non-compliant, hasn't taken meds in over a year)20g RACZofran 4 mgBGL 121BP for EMS 180/120, temp 98.1Pt initially denies drug use, after further questioning by Dr. Courtney pt stated he was doing "powder" cocaine 3 days ago. 19506-1Ochvcfqap department Triage yhntBB9143-16-83Z64:31:23[facility] Triage noteTXT1.2.840.671404.1.13.104.2.7.2.7278 79|[id number] for patient tgyv42816-8Qhhevynoa department NoteLNNARRATIVEFormatted C-CDA narrative [id number] Johnston RN[address] StreetWs[id number] VYHSTBQFLMHWXFTHU5756-54-28I03:31:231.2.8 40.774803.1.72.3.15|1.2.840.762573.1.13.1 04.2.7.2.727879_[id number] Yessi Johnston RN [facility] 2023-10-14 20:13:00 wId2VWh/JXammnUK0XgqrvczUODFwIuDqKiOCJWQ C 2ewMrAcVcU3nWcZ18LISfW+2844-75-43G33:13:0 0 [facility] Emergency Department NotePatient Name: Bruce OswaldDate of : 1980 43 year old maleTreatment Room: [place] [address]SL5Rfzycga Record Number: [id number] Care Physician: PATIENT DOES NOT HAVE A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
[2023-11-05 16:10] LABS: Potassium 3.5 mEq/L (3.5-5.1); Troponin High Sensitivity 11.2 pg/mL (<58.9)
[2023-11-05 16:16] LABS: Absolute Lymphocytes (CBC) 4.1 K/uL (0.7-4.9); Lymphocytes % 55.3 % (15.3-44.8); MCV 95.8 fL (80-100); MPV 9.3 fL (7.6-11.3); Platelets 148 thou/uL (152-406); RBC Red Blood Cell Count 4.07 M/uL (4.33-5.43)
--- NOTE | 2023-11-05 17:00 | RAD REPORT ---
EXAM DESCRIPTION: [place] Single View11/05/2023 3:53 pm CLINICAL HISTORY: CHEST PAIN COMPARISON: Chest Single View dated 09/16/2023; Chest Single View dated 02/19/2021; Chest Single View dated 07/10/2019; Chest Single View dated 06/13/2019 TECHNIQUE: Portable AP view of the chest. FINDINGS: The lungs are clear. No pneumothorax or effusion. The cardiomediastinal contours are unre markable. IMPRESSION: No acute cardiopulmonary process.
--- NOTE | 2023-11-05 17:19 | EDPHYS ---
Physician Documentation [facility] Name: Bruce Oswald Age: 43 yrs Sex: Male : 1980 Arrival Date: 11/05/2023 Time: 15:16 Bed 2 Private MD: ED Physician Fransisco Ferrara HPI: 11/05 15:37 This 43 yrs old Black Male presents to ER via EMS with complaints of chest pain. ms3 15:37 43-year-old male with past medical history of anxiety, asthma, back pain, hypertension, ms3 anemia, diabetes presents to the emergency department via [facility] for chest pain that began 3 days prior to arrival. Patient endorses using cocaine at a alliance party last night. Patient denies any alleviating or inciting factors. Patient denies shortness of breath, nausea, vomiting.. Historical: - Allergies: 15:36 NKDA; ph - PMHx: 15:36 Anxiety; Asthma; Back pain; Hypertension; ph - Immunization history:: Adult Immunizations unknown. - Social history:: Smoking status: Patient denies any tobacco usage or history of. Patient uses street drugs, cocaine. ROS: 15:37 Constitutional: Negative for fever, and chills. Neck: Negative for injury, pain, and ms3 swelling, Respiratory: Negative for shortness of breath, cough, wheezing, and pleuritic chest pain, 15:37 MS/Extremity: Negative for injury and deformity, Skin: Negative for injury, rash, and discoloration, 15:37 Cardiovascular: Positive for chest pain, 15:37 All other systems are negative, Exam: 15:37 Constitutional: This is a well developed, well nourished patient who is awake, alert, ms3 and in no acute distress. Head/Face: Normocephalic, atraumatic. Cardiovascular: Regular rate and rhythm with a normal S1 and S2. No gallops, murmurs, or rubs. Normal PMI, no JVD. No pulse deficits. Respiratory: Lungs have equal breath sounds bilaterally, clear to auscultation and percussion. No rales, rhonchi or wheezes noted. No increased work of breathing, no retractions or nasal flaring. Abdomen/GI: Soft, non-tender, with normal bowel sounds. No distension or tympany. No guarding or rebound. No evidence of tenderness throughout. Skin: Warm, dry with normal turgor. Normal color with no rashes, no lesions, and no evidence of cellulitis. MS/ Extremity: Pulses equal, no cyanosis. Neurovascular intact. Full, normal range of motion. 15:38 Chest/axilla: Inspection: normal, Palpation: tenderness, that is moderate, of the ms3 anterior aspect of left upper chest, 16:21 ECG was reviewed by the Attending Physician. ms3 Vital Signs: 15:28 BP 159 / 112; Pulse 84; Resp 22; Temp 97.9; Pulse Ox 100% on R/A; Weight 68.04 kg; ph Height 5 ft. 9 in. ; 18:00 BP 157 / 89; Pulse 87; Resp 18; Temp 97.5; Pulse Ox 98% on R/A; ph 15:28 Body Mass Index 22.15 (68.04 kg, 175.26 cm) ph MDM: 15:34 Patient medically screened. ms3 15:37 Differential diagnosis: abnormal EKG, acute myocardial infarction, anxiety, coronary ms3 artery disease chest wall pain. The patient was not given aspirin in the Emergency Department. Administered by EMS. 17:18 HEART Score: History: Slightly Suspicious (0), ECG: Non specific repolarization ms3 disturbance / LBTB / PM (1), Age: < or = 45 years (0), Risk Factors: 1 or 2 risk factors (1), [Hypertension] Troponin: < or = 1 x Normal Limit (0), Total Score = 2. Data reviewed: vital signs, nurses notes, lab test result(s), EKG, radiologic studies, and as a result, I will discharge patient. Consideration of Admission/Observation Escalation of care including admission/observation considered. Heart score 2. Independent interpretation of the following test(s) in the Emergency Department EKG: See my EKG interpretation above X-Ray: My interpretation is CXR image reviewed does not reveal ptx, pna, or pulmonary edema. Care significantly affected by the following chronic conditions: Hypertension. Counseling: I had a detailed discussion with the patient and/or guardian regarding the historical points, exam findings, and any diagnostic results supporting the discharge/admit diagnosis, lab results, radiology results, the need for outpatient follow up, to return to the emergency department if symptoms worsen or persist or if there are any questions or concerns that arise at home. Response to treatment: the patient's symptoms have mildly improved after treatment, and as a result, I will discharge patient. Special discussion: Based on the patient's history, exam, and Dx evaluation, there is no indication for emergent intervention or inpatient Tx. It is understood by the patient/guardian that if the Sx's persist or worsen they need to return immediately for re-evaluation. ED course: Discussed labs, EKG, chest x-ray findings with patient. Patient to follow-up with Dr. Mcgarry in 1-2 days. Patient understands and agrees with plan. All questions were answered. Return precautions discussed include worsening symptoms, or any other concerns. . 11/05 15:35 Order name: Basic Metabolic Panel; Complete Time: 16:21 11/05 15:35 Order name: CBC with Diff; Complete Time: 16:21 11/05 15:35 Order name: Magnesium; Complete Time: 16:21 11/05 15:35 Order name: Troponin HS; Complete Time: 16:21 11/05 15:35 Order name: XRAY Chest (1 view); Complete Time: 17:13 11/05 15:35 Order name: EKG; Complete Time: 15:36 11/05 15:35 Order name: Cardiac monitoring; Complete Time: 16:57 11/05 15:35 Order name: EKG - Nurse/Tech; Complete Time: 16:00 11/05 15:35 Order name: IV Saline Lock; Complete Time: 16:00 11/05 15:35 Order name: Labs collected and sent; Complete Time: 16:00 11/05 15:35 Order name: O2 Per Protocol; Complete Time: 15:35 11/05 15:35 Order name: O2 Sat Monitoring; Complete Time: 15:35 ms3 EC:21 Rate is 86 beats/min. Rhythm is regular. QRS [place] is Normal. MS interval is normal. QRS ms3 interval is normal. Clinical impression: NSR w/ Non-specific ST/T Changes. Interpreted by me. Reviewed by me. Administered Medications: No medications were administered Disposition Summary: 11/05/23 17:18 Discharge Ordered Notes: Location: Home ms3 Condition: Stable ms3 Diagnosis - Chest pain, unspecified ms3 - Essential (primary) hypertension ms3 Followup: ms3 - With: Jhon Mcgarry MD - When: 1 - 2 days - Reason: Recheck today's complaints Discharge Instructions: - Discharge Summary Sheet ms3 - Nonspecific Chest Pain, Adult ms3 - Hypertension, Adult ms3 - DASH Eating Plan ms3 Forms: - Medication Reconciliation Form ms3 - Thank You Letter ms3 - Antibiotic Education ms3 - Prescription Opioid Use ms3 - Patient Portal Instructions ms3 - Leadership Thank You Letter ms3 Signatures: Dispatcher [employer] Ramona Sethi RN RN ph Fransisco Ferrara, DO ms3 Corrections: (The following items were deleted from the chart) 15:39 15:37 Constitutional: This is a well developed, well nourished patient who is awake, ms3 alert, and in no acute distress. Head/Face: Normocephalic, atraumatic. Chest/axilla: Normal chest wall appearance and motion. Nontender with no deformity. Cardiovascular: Regular rate and rhythm with a normal S1 and S2. No gallops, murmurs, or rubs. Normal PMI, no JVD. No pulse deficits. Respiratory: Lungs have equal breath sounds bilaterally, clear to auscultation and percussion. No rales, rhonchi or wheezes noted. No increased work of breathing, no retractions or nasal flaring. Abdomen/GI: Soft, non-tender, with normal bowel sounds. No distension or tympany. No guarding or rebound. No evidence of tenderness throughout. Skin: Warm, dry with normal turgor. Normal color with no rashes, no lesions, and no evidence of cellulitis. MS/ Extremity: Pulses equal, no cyanosis. Neurovascular intact. Full, normal range of motion. ms3
--- NOTE | 2023-11-05 17:19 | ER ---
Nurse's Notes [facility] Name: Bruce Oswald Age: 43 yrs Sex: Male : 1980 Arrival Date: 11/05/2023 Time: 15:16 Bed 2 Private MD: Diagnosis: Chest pain, unspecified;Essential (primary) hypertension Presentation: 11/05 15:28 Chief complaint: EMS states: Pt c/o chest pain, hx of HTN, non-compliant w/ ph medications, attempted to sign into ED earlier today but decided wait was too long, drove to [place] ER but got pulled over in [place], PD contacted EMS to bring pt in for evaluation. Coronavirus screen: Vaccine status: Patient reports being unvaccinated. Ebola Screen: No symptoms or risks identified at this time. Initial Sepsis Screen: Does the patient meet any 2 criteria? No. Patient's initial sepsis screen is negative. Does the patient have a suspected source of infection? No. Patient's initial sepsis screen is negative. Risk Assessment: Do you want to hurt yourself or someone else? Patient reports no desire to harm self or others. Onset of symptoms was November 05, 2023. 15:28 Method Of Arrival: EMS: [facility] ph 15:28 Acuity: ZENON 2 ph Triage Assessment: 15:37 General: Appears in no apparent distress. Behavior is cooperative, appropriate for age, ph anxious, restless. Pain: Complains of pain in anterior aspect of left upper chest. Neuro: Level of Consciousness is awake, alert, obeys commands, Oriented to person, place, time, situation. Cardiovascular: Reports chest pain. Respiratory: Airway is patent Respiratory effort is even, unlabored, Respiratory pattern is regular, symmetrical. GI: Reports persistent hiccups. Derm: Skin is pink, warm \T\ dry. Historical: - Allergies: 15:36 NKDA; ph - PMHx: 15:36 Anxiety; Asthma; Back pain; Hypertension; ph - Immunization history:: Adult Immunizations unknown. - Social history:: Smoking status: Patient denies any tobacco usage or history of. Patient uses street drugs, cocaine. Screenin:59 [facility] ED Fall Risk Assessment (Adult) History of falling in the last 3 months, ph including since admission No falls in past 3 months (0 pts) Score/Fall Risk Level 0 - 2 = Low Risk. Abuse screen: Denies threats or abuse. Denies injuries from another. Nutritional screening: No deficits noted. Tuberculosis screening: No symptoms or risk factors identified. Assessment: 17:58 Reassessment: Patient appears in no apparent distress at this time. Patient and/or ph family updated on plan of care and expected duration. Pain level reassessed. Patient is alert, oriented x 3, equal unlabored respirations, skin warm/dry/pink. Vital Signs: 15:28 BP 159 / 112; Pulse 84; Resp 22; Temp 97.9; Pulse Ox 100% on R/A; Weight 68.04 kg; ph Height 5 ft. 9 in. ; 18:00 BP 157 / 89; Pulse 87; Resp 18; Temp 97.5; Pulse Ox 98% on R/A; ph 15:28 Body Mass Index 22.15 (68.04 kg, 175.26 cm) ph ED Course: 15:25 Patient arrived in ED. bd 15:26 Fransisco Ferrara DO is Attending Physician. ms3 15:28 Ramona Santillan, RN is Primary Nurse. ph 15:31 Arm band placed on Patient placed in an exam room, on a stretcher. ll1 15:35 Patient has correct armband on for positive identification. Placed in gown. Bed in low ph position. Call light in reach. Side rails up X2. Pulse ox on. NIBP on. 15:36 Triage completed. ph 15:43 Initial lab(s) drawn, by me, sent to lab. ll1 15:54 XRAY Chest (1 view) In Process Unspecified. EDMS 17:17 Jhon Mcgarry MD is Referral Physician. ms3 17:59 No provider procedures requiring assistance completed. IV discontinued, intact, ph bleeding controlled, No redness/swelling at site. Pressure dressing applied. Administered Medications: No medications were administered Medication: 15:37 VIS not applicable for this client. ph Outcome: 17:18 Discharge ordered by . ms3 17:59 Discharged to home ambulatory, with family, ph 17:59 Condition: good 17:59 Discharge instructions given to family, Instructed on discharge instructions, follow up and referral plans. Demonstrated understanding of instructions, follow-up care, 18:00 Patient left the ED. ph Signatures: Dispatcher [employer] EDMS Dirrim, Ramona Colunga, RN RN ph Otilio Banks RN RN ll1 Fransisco Ferrara, DO RAMSEY ms3
--- NOTE | 2023-11-05 20:38 | P.HP ---
Certification for Inpatient Patient admitted to: Inpatient With expected LOS: >2 Midnights Practitioner: I am a practitioner with admitting privileges, knowledge of patient current condition, hospital course, and medical plan of care. Services: Services provided to patient in accordance with Admission requirements found in Title 42 Section 412.3 of the Code of Federal Regulations Patient History Date of Service: 11/06/23 Allergies No Known Drug Allergies Allergy (Unverified 06/04/15 08:10) Unknown Physical Examination - Studies Laboratory Data (last 24 hrs) 11/05/23 11/05/23 15:40 15:40 WBC 7.50 Hgb 13.4 L Hct 39.0 L Plt Count 148 L Sodium 142 Potassium 3.5 BUN 10 Creatinine 0.99 Glucose 82 Magnesium 2.0 Assessment and Plan - Advance Directives Does patient have a Living Will: No Does patient have a Durable POA for Healthcare: No
[2023-11-05 21:47] VITALS: BP 157/89; TEMP 97.5; O2SAT 98
== END ==
LOC: ER 15:16 → ERHOLD 20:28 → UNDOADMIN 20:28
DX: R07.9 Chest pain, unspecified (principal); I10 Essential (primary) hypertension
CPT/HCPCS: 36415; 71045; 80048; 83735; 84484; 85025; 93005

== ENCOUNTER 2024-02-17 21:36 | Emergency (ER) | payer OTHER ==
--- OUTSIDE RECORDS SUMMARY | 2024-02-17 21:43 | XMS REPORT | Continuity of Care Document ---
Author Name Unknown Address [address] [facility] [place] [address] [facility] Address [address] [facility] [place] [address] Care Team Providers Care 3D Animator Name Role Phone PCP, PATIENT DOES NOT HAVE A Primary Care Physic nadiya Unavailable FABIAN LAWRENCE Attending Clinician Unavailable FABIAN LAWRENCE Attending Clinician Unavailable MILAGROS COURTNEY Attending Clinician Unavailable Milagros Courtney MD Attending Clinician [phone] OSITO HILLMAN Attending Clinician Unavailable Osito Hillman MD Attending Clinician [phone] Jcarlos Mora Attending Clinician Unavailable RAMIRO TIPTON Attending Clinician Unavailable Ramiro Steiner S Attending Clinician [phone] YANCY CRUMP Attending Clinician Unavailable Yancy Crump NP Attending Clinician [phone] MURTAZA RAMIREZ Attending Clinician Unavailable Emily Watt MD Attending Clinician [phone] Murtaza Ramirez DO Attending Clinician [phone] HARSHAD LOWE Attending Clinician Unavailable Harshad Morales Attending Clinician [phone] KENIA ALCALA Attending Clinician Unavailab Kenia Santos DO Attending Clinician [phone] SMILEY WELCH Attending Clinician Unavailable Yuri ROSALES, Smiley Attending Clinician [phone] Deepak Weber MD Attending Clinician [phone] Sarah Ramos Attending Clinician [phone] Mike Bob MD Attending Clinician [phone] FABIAN LAWRENCE Admitting Clinician Unavailable MILAGROS COURTNEY Admitting Clinician Unavailable OSITO HILLMAN Admitting Clinician Unavailable Physician, No Primary or Family Admitting Clinic nadiya Unavailable EMILY WATT Admitting Clinician Unavailab HARSHAD Arzola Admitting Clinician Unavailable Deepak Weber MD Admitting Clinician [phone] Mike Bob MD Admitting Clinician [phone] Payers Payer Name Policy Type Policy Number Effective Date Expirati on Date Source [employer]WORK [id number] 2023 00:00:00 [place] [employer] [id number] 2023 00:00:00 MEDICAID SSI PENDING PENDING 2023 00:00:00 2023 00:00:00 Problems Condition Name Condition Details Condition Category Status Onset Date Resolution Date Last Treatment Date Treating Clinician Comments Source Intractabl e vomiting with nausea Intractabl e vomiting with nausea Disease Active 04-17 00:00: 00 [facility] Essential hypertensi on Essential hypertensi on Disease Active 04-17 00:00: 00 [facility] Troponin I above reference range Troponin I above reference range Disease Active 04-17 00:00: 00 [facility] CAESAR (acute kidney injury) CAESAR (acute kidney injury) Disease Active 04-08 00:00: 00 [facility] Allergies, Adverse Reactions, Alerts Allergy Name Allergy Type Status Severity Reaction(s) Onset Date Inactive Date Treating Clinician Comments Source No Known Allergie s DA Active U 06-14 00:00: 00 [facility] NO KNOWN ALLERGIE S Drug Class Active [facility] Social History Social Habit Start Date Stop Date Quantity Comments Source History of tobacco use Smokes tobacco daily [facility] History of Social function 2023-10-15 00:00:00 2023-10-15 00:00:00 [facility] Exposure to SARS-CoV-2 (event) 2023-01-30 00:00:00 2023-02-09 20:59:00 Not sure [facility] Tobacco use and exposure 2020-04-08 00:00:00 2020-04-08 00:00:00 Smokeless tobacco non-user [facility] Sex Assigned At 1980 00:00:00 1980 00:00:00 [facility] Smoking Status Start Date Stop Date Source Smokes tobacco daily 2020-04-08 00:00:00 [facility] Medications Ordered Medication Name Filled Medication Name Start Date Stop Date Current Medication? Ordering Clinician Indication Dosage Frequency Signature (SIG) Comments Components Source iopamidol (ISOVUE 370-500 mL) injection 90 mL 10-15 20:15: 00 10-15 20:15 :00 No [id number] 90mL 90 mL, Intravenou s, ONCE, 1 dose, On Sun10/15/23 at 1415, Routine [facility] KCL (KLOR-CON M20) tablet 40 mEq 10-15 19:30: 00 10-15 19:26 :00 No 40meq 40 mEq, Oral, ONCE, 1 dose, On Sun10/15/23 at 1330, JUNE [facility] ketorolac (TORADOL) injection 30 mg 10-15 19:15: 00 10-15 19:30 :00 No 30mg 30 mg, Slow IV Push, ONCE, 1 dose, On Sun10/15/23 at 1315, Routine [facility] NaCl 0.9% (NS) bolus infusion 1,000 mL 10-15 19:15: 00 10-15 21:07 :00 No 1000mL at 999 mL/hr, 1,000 mL, IV Infusion, ONCE, 1 dose, On Sun10/15/23 at 1315, [facility] pantoprazol e (PROTONIX) injection 40 mg 10-15 18:30: 00 10-15 19:31 :00 No 40mg 40 mg, Slow IV Push, ONCE, 1 dose, On Sun10/15/23 at 1230 [facility] ondansetron (ZOFRAN (PF)) injection 4 mg 10-15 18:30: 00 10-15 19:31 :00 No 4mg 4 mg, Slow IV Push, ONCE, 1 dose, On Sun10/15/23 at 1230, [facility] hydralAZINE (APRESOLINE ) injection 10 mg 10-15 05:15: 00 10-15 05:04 :00 No 10mg 10 mg, Slow IV Push, ONCE, 1 dose, On Sun10/14/23 at 2315, [facility] hydralAZINE (APRESOLINE ) injection 10 mg 08 04:00: 00 10-15 03:53 :00 No 10mg 10 mg, Slow IV Push, ONCE, 1 dose, On Sun10/14/23 at 2200, [facility] ondansetron (ZOFRAN (PF)) injection 4 mg 08 02:45: 00 10-15 02:49 :00 No 4mg 4 mg, Slow IV Push, ONCE, 1 dose, On Sun10/14/23 at 2045, [facility] hydrALAZINE 10 mg tablet 10-15 00:00: 00 Yes [id number] 10mg Take 1 tablet by mouth in the morning and 1 tablet at noon and 1 tablet in the evening. [facility] ondansetron 4 mg disintegrat ing tablet 10-15 00:00: 00 Yes [id number] 4mg Take 1 tablet by mouth every 8 (eight) hours as needed for Nausea and Vomiting (N/V) for up to 10 doses. [facility] albuterol 90 mcg/actuati on inhaler 10-15 00:00: 00 Yes [id number] 2{puff} Inhale 2 Puffs every 4 (four) hours as needed for Wheezing or Shortness of Breath. [facility] ibuprofen (IBU) tablet 600 mg 06-16 18:30: 00 06-16 18:40 :00 No 600mg 600 mg, Oral, ONCE, 1 dose, [facility]30[facility] ([facility]OL[facility] tablet 650 mg 06-16 17:45: 00 06-16 17:47 :00 No 650mg 650 mg, Oral, ONCE, 1 dose, [facility]16/23 at 1245[facility] cloNIDine (CATAPRES) tablet 0.1 mg 06-16 17:45: 00 06-16 17:48 :00 No .1mg 0.1 mg, Oral, ONCE, 1 dose, On 06/16/23 at 1245, STAT [facility] iopamidol (ISOVUE 370-500 mL) injection 90 mL 06-16 14:20: 00 06-16 14:45 :00 No [id number] 90mL 90 mL, Intravenou s, ONCE, 1 dose, On 06/16/23 at 0945, Routine [facility] haloperidol lactate (HALDOL) injection 2.5 mg 06-16 14:15: 00 06-16 14:17 :00 No 2.5mg 2.5 mg, Intravenou s, ONCE, 1 dose, On 06/16/23 at 0915, STAT [facility] NaCl 0.9% (NS) bolus infusion 1,000 mL 06-16 13:45: 00 06-16 17:38 :00 No 1000mL at 999 mL/hr, 1,000 mL, IV Infusion, ONCE, 1 dose, On 06/16/23 at 0845, JUNE [facility] amoxicillin 500 mg capsule 05-01 00:00: 00 Yes [id number] 500mg Take 1 capsule by mouth in the morning and 1 capsule at noon and 1 capsule in the evening. [facility] ibuprofen 800 mg tablet 05-01 00:00: 00 Yes [id number] 800mg Take 1 tablet by mouth every 6 (six) hours as needed for Pain (scale 4-6). [facility] traMADoL (ULTRAM) tablet 50 mg 03-22 08:30: 00 03-22 07:33 :00 No 50mg 50 mg, Oral, ONCE, 1 dose, On Erika 03/22/23 at 0330, Routine [facility] clindamycin (CLEOCIN HCL) capsule 450 mg 03-22 08:30: 00 03-22 07:34 :00 No 450mg 450 mg, Oral, ONCE, 1 dose, On Erika 03/22/23 at 0330, JUNE
Re ason for Anti-Infec tive: Documented Infection< br>Documen nakita Infection Site: HEENT
D uration of Therapy: Other (see Comments)< br>Restric nakita use approved by: ED PROVIDER [facility] ibuprofen (IBU) tablet 600 mg 03-22 07:30: 00 03-22 07:34 :00 No 600mg 600 mg, Oral, ONCE, 1 dose, On Erika 03/22/23 at 0230, JUNE [facility] traMADoL 50 mg tablet 03-22 00:00: 00 Yes [id number] 50mg Take 1 tablet by mouth every 6 (six) hours as needed for Pain (scale 7-10). Indication s: acute pain [facility] ibuprofen 600 mg tablet 03-22 00:00: 00 Yes [id number] 600mg Take 1 tablet by mouth every 6 (six) hours as needed for Pain (scale 4-6). [facility] clindamycin 150 mg capsule 03-22 00:00: 00 04-02 04:59 :00 No [id number] 450mg Take 3 capsules by mouth in the morning and 3 capsules at noon and 3 capsules in the evening. Do all this for 10 days. [facility] maalox:diph enhydrAMINE :lidocaine 2 % viscous 1:1:1 ([facility]) oral suspension 15 mL 02-10 03:15: 00 02-10 03:17 :00 No 15mL 15 mL, Oral, ONCE, 1 dose, On Sun02/09/23 at 2215, Routine [facility] cloNIDine (CATAPRES) tablet 0.1 mg 02-10 02:15: 00 02-10 02:15 :00 No .1mg 0.1 mg, Oral, ONCE, 1 dose, On Sun02/09/23 at 2115, STAT [facility] dicyclomine (BENTYL) injection 20 mg 02-10 02:00: 00 02-10 00:59 :00 No 20mg 20 mg, Intramuscu lar, ONCE, 1 dose, On Sun02/09/23 at 2100, Routine [facility] NaCl 0.9% (NS) IV infusion 1,000 mL 02-10 01:00: 00 Yes 1000mL at 999 mL/hr, Intravenou s, CONTINUOUS , Starting on Sun02/09/23 at 2000, Until Discontinu ed, JUNE [facility] haloperidol lactate (HALDOL) injection 2.5 mg 02-10 00:00: 00 02-10 00:59 :00 No 2.5mg 2.5 mg, Slow IV Push, ONCE, 1 dose, On Sun02/09/23 at 1900, STAT [facility] proMETHazin e 25 mg tablet 02-09 00:00: 00 Yes [id number] 25mg Take 1 tablet by mouth every 6 (six) hours as needed for Nausea and Vomiting (N/V) or N/V unresponsi ve to Ondansetro n. [facility] losartan 50 mg tablet 02-09 00:00: 00 03-12 04:59 :00 No [id number] 50mg Take 1 tablet by mouth in the morning for 30 days. [facility] pantoprazol e (PROTONIX) 80 mg in NaCl 0.9% (NS) 20 mL syringe 02-08 13:00: 00 02-08 12:04 :00 No 80mg 80 mg, IV Push, ONCE, 1 dose, On Erika 02/08/23 at 0800, Administer over 2 Minutes, 20 mL [facility] dicyclomine (BENTYL) tablet 20 mg 02-08 12:00: 00 02-08 12:01 :00 No 20mg 20 mg, Oral, ONCE, 1 dose, On Erika 02/08/23 at 0700, [facility] NaCl 0.9% (NS) bolus infusion 1,000 mL 02-08 12:00: 00 02-08 12:10 :00 No 1000mL at 999 mL/hr, 1,000 mL, IV Infusion, ONCE, 1 dose, On Erika 02/08/23 at 0700, [facility] ondansetron (ZOFRAN (PF)) injection 4 mg 02-08 08:45: 00 02-08 08:41 :00 No 4mg 4 mg, Slow IV Push, ONCE, 1 dose, On Erika 02/08/23 at 0345, [facility] pantoprazol e (PROTONIX) EC tablet 40 mg 01-13 04:45: 00 01-13 04:49 :00 No 40mg 40 mg, Oral, ONCE, 1 dose, On Sun01/12/23 at 2345, [facility] iopamidol (ISOVUE 370-500 mL) injection 100 mL 01-13 04:15: 00 01-13 04:15 :00 No [id number] 100mL 100 mL, Intravenou s, ONCE, 1 dose, On Sun01/12/23 at 2315, Routine [facility] NaCl 0.9% (NS) bolus infusion 1,000 mL 01-13 03:15: 00 01-13 04:42 :00 No 1000mL at 999 mL/hr, 1,000 mL, IV Infusion, ONCE, 1 dose, On Sun01/12/23 at 2215, JUNE [facility] pantoprazol e (PROTONIX) 40 mg EC tablet 01-13 00:00: 00 Yes [id number] 40mg Take 1 tablet by mouth in the morning. [facility] ondansetron 4 mg disintegrat ing tablet 01-13 00:00: 00 10-15 00:00 :00 No [id number] 4mg Take 1 tablet by mouth every 8 (eight) hours as needed for Nausea and Vomiting (N/V). [facility] dexamethaso ne (DECADRON PHOSPHATE) injection 10 mg 11-24 15:15: 00 11-24 14:09 :00 No 10mg 10 mg, Oral, ONCE, 1 dose, On [facility] 11/24/21 at 0915, STAT [facility] HYDROcodone -acetaminop hen (NORCO 5) 5-325 mg tablet 1 tablet 11-24 15:15: 00 11-24 14:08 :00 No 1{tbl} 1 tablet, Oral, ONCE, 1 dose, On [facility] 11/24/21 at 0915, JUNE [facility] diazePAM (VALIUM) tablet 5 mg 11-24 15:15: 00 11-24 14:09 :00 No 5mg 5 mg, Oral, ONCE, 1 dose, On [facility] 11/24/21 at 0915, JUNE [facility] cyclobenzap rine 10 mg tablet 11-24 00:00: 00 03-22 00:00 :00 No [id number] 10mg Take 1 tablet by mouth 3 (three) times daily as needed for Muscle Spasms. [facility] dicyclomine 20 mg tablet - 00:00: 00 Yes [id number] 20mg Take 1 tablet by mouth 4 (four) times daily. [facility] loratadine 10 mg tablet - 00:00: 00 Yes [id number] 10mg Take 1 tablet by mouth daily. [facility] ondansetron 4 mg disintegrat ing tablet -16 00:00: 00 10-15 00:00 :00 No [id number] 4mg Take 1 tablet by mouth every 4 (four) hours as needed for Nausea and Vomiting (N/V). [facility] aspirin 81 mg chewable tablet 04-19 00:00: 00 05-20 04:59 :00 No [id number] 81mg Take 1 tablet by mouth daily for 30 days. [facility] aspirin chewable tablet 81 mg 04-18 14:00: 00 Yes 81mg 81 mg, Oral, DAILY, First dose on 04/18/20 at 0900, Until Discontinu ed, Routine [facility] carvediloL 3.125 mg tablet 04-18 00:00: 00 05-19 04:59 :00 No [id number] 3.125mg Take 1 tablet by mouth 2 (two) times daily with meals for 30 days. [facility] pantoprazol e 40 mg EC tablet 04-18 00:00: 05-19 04:59 :00 No [id number] 40mg Take 1 tablet by mouth daily for 30 days. [facility] carvediloL (COREG) tablet 3.125 mg 04-17 22:00: 00 Yes 3.125mg 3.125 mg, Oral, BID MEALS, First dose on 04/17/20 at 1700, Until Discontinu ed, Routine
science faculty member approving Restricted medication : DAYDC [facility] atorvastati n (LIPITOR) tablet 40 mg 04-17 22:00: 00 Yes 40mg 40 mg, Oral, QPM, First dose on 04/17/20 at 1700, Until Discontinu ed, Routine [facility] heparin (porcine) injection 5,000 Units 04-17 19:00: 00 Yes 5000U 5,000 Units, Subcutaneo us, Q8H, First dose on 04/17/20 at 1400, Until Discontinu ed, Routine [facility] nicotine (NICODERM) 7 mg/24 hr patch 1 Patch 04-17 18:00: 00 Yes 1{patch } 1 Patch, Topical, Administer over 24 Hours, Q24H, First dose on 04/17/20 at 1300, Until Discontinu ed, Routine [facility] D5W 0.9% NaCl (NS) IV infusion 1,000 mL 04-17 17:00: 00 04-18 13:34 :21 No 1000mL at 100 mL/hr, 1,000 mL, IV Infusion, CONTINUOUS , Starting 04/17/20 at 1200, Until 04/18/20 at 0834, Routine [facility] LORazepam (ATIVAN) injection 0.5 mg 04-17 15:55: 35 Yes .5mg 0.5 mg, Slow IV Push, Q8HPRN, Starting 04/17/20 at 1055, Until Discontinu ed, Routine, Anxiety, Agitation [facility] nitroglycer in (NITROSTAT) sublingual tablet 0.4 mg 04-17 15:43: 20 Yes .4mg 0.4 mg, Sublingual , Q5MIN PRN, Starting 04/17/20 at 1043, Until Discontinu ed, Routine, Chest pain [facility] ondansetron (ZOFRAN (PF)) injection 4 mg 04-17 15:24: 53 Yes 4mg 4 mg, Slow IV Push, Q6HPRN, Starting 04/17/20 at 1024, Until Discontinu ed, Routine, Nausea and Vomiting (N/V) [facility] morpHINE injection 2 mg 04-17 15:24: 16 04-18 15:23 :16 No 2mg 2 mg, Slow IV Push, Q4HPRN, Starting 04/17/20 at 1024, Until 04/18/20 at 1023, Routine, Pain (scale 7-10) [facility] aspirin chewable tablet 324 mg 04-17 14:59: 00 04-17 15:04 :00 No 324mg 324 mg, Oral, ONCE, 1 dose, 04/17/20 at 1000, Routine [facility] proMETHazin e (PHENERGAN) 25 mg in NaCl 0.9% (NS) 50 mL piggyback 04-17 14:45: 00 04-17 14:45 :00 No 25mg 25 mg, IV Piggyback, ONCE, 1 dose, 04/17/20 at 0945, 50 mL [facility] NaCl 0.9% (NS) bolus infusion 500 mL 04-17 14:00: 00 04-18 01:12 :00 No 500mL at 999 mL/hr, 500 mL, IV Infusion, ONCE, 1 dose, 04/17/20 at 0900, STAT [facility] ondansetron (ZOFRAN (PF)) injection 4 mg 04-17 14:00: 00 04-17 13:10 :00 No 4mg 4 mg, Slow IV Push, ONCE, 1 dose, 04/17/20 at 0900, [facility] morpHINE injection 4 mg 04-17 14:00: 00 04-17 13:10 :00 No 4mg 4 mg, Slow IV Push, ONCE, 1 dose, 04/17/20 at 0900, STAT [facility] pantoprazol e (PROTONIX) 40 mg in NaCl 0.9% (NS) 100 mL MINI-BAG 04-17 14:00: 00 04-17 13:26 :00 No 40mg 40 mg, IV Piggyback, ONCE, 1 dose, 04/17/20 at 0900, 100 mL [facility] NaCl 0.9% (NS) bolus infusion 1,000 mL 04-17 13:00: 00 04-17 15:04 :00 No 1000mL at 999 mL/hr, 1,000 mL, IV Infusion, ONCE, 1 dose, 04/17/20 at 0800, STAT [facility] ondansetron (ZOFRAN (PF)) injection 4 mg 04-17 13:00: 00 04-17 11:54 :00 No 4mg 4 mg, Slow IV Push, ONCE, 1 dose, 04/17/20 at 0800, [facility] LORazepam (ATIVAN) injection 2 mg 04-08 09:00: 00 04-08 07:56 :00 No 2mg 2 mg, Slow IV Push, ONCE, 1 dose, Erika 04/08/20 at 0400, Routine [facility] NaCl 0.9% (NS) IV infusion 1,000 mL 04-08 06:00: 00 Yes 1000mL at 150 mL/hr, Intravenou s, CONTINUOUS , Starting Erika 04/08/20 at 0100, Until Discontinu ed, Routine [facility] ondansetron (ZOFRAN (PF)) injection 8 mg 04-08 06:00: 00 04-08 04:53 :00 No 8mg 8 mg, Slow IV Push, ONCE, 1 dose, Erika 04/08/20 at 0100, [facility] NaCl 0.9% (NS) IV infusion 1,000 mL 04-08 05:45: 00 04-08 06:21 :00 No 1000mL at 999 mL/hr, Intravenou s, ONCE, 1 dose, Erika 04/08/20 at 0045, Routine [facility] NaCl 0.9% (NS) bolus infusion 1,000 mL 04-08 01:00: 00 04-08 02:20 :00 No 1000mL at 999 mL/hr, 1,000 mL, IV Infusion, ONCE, 1 dose, 04/07/20 at 2000, [facility] No known medications No Un [facility] Vital Signs Vital Name Observation Time Observation Value Comments S ource Systolic blood pressure 2023-10-15 21:03:00 175 mm[Hg] [facility] Diastolic blood pressure 2023-10-15 21:03:00 100 mm[Hg] [facility] Respiratory rate 2023-10-15 21:03:00 20 /min [facility] Oxygen saturation in Arterial blood by Pulse oximetry 2023-10-15 21:03:00 99 /min [facility] Heart rate 2023-10-15 18:04:00 107 /min [facility] Body temperature 2023-10-15 18:04:00 37.22 Sumi [facility] Body height 2023-10-15 18:04:00 175.3 cm [facility] Body weight 2023-10-15 18:04:00 68.04 kg [facility] BMI 2023-10-15 18:04:00 22.15 kg/m2 [facility] Systolic blood pressure 2023-10-15 06:02:00 154 mm[Hg] [facility] Diastolic blood pressure 2023-10-15 06:02:00 90 mm[Hg] [facility] Heart rate 2023-10-15 06:02:00 76 /[facility] Respiratory rate 2023-10-15 06:02:00 16 /min [facility] Oxygen saturation in Arterial blood by Pulse oximetry 2023-10-15 06:02:00 96 /min [facility] Body temperature 2023-10-15 02:24:00 37.5 Sumi [facility] Body height 2023-10-15 02:24:00 175.3 cm [facility] Body weight 2023-10-15 02:24:00 68.04 kg [facility] BMI 2023-10-15 02:24:00 22.15 kg/m2 [facility] Body temperature 2023-06-16 19:36:00 37.22 Sumi [facility] Respiratory rate 2023-06-16 19:36:00 18 /min [facility] Systolic blood pressure 2023-06-16 19:00:00 104 mm[Hg] [facility] Diastolic blood pressure 2023-06-16 19:00:00 62 mm[Hg] [facility] Heart rate 2023-06-16 19:00:00 81 /min [facility] Oxygen saturation in Arterial blood by Pulse oximetry 2023-06-16 19:00:00 97 /min [facility] Body height 2023-06-16 12:42:00 175.3 cm [facility] Body weight 2023-06-16 12:42:00 68.04 kg [facility] BMI 2023-06-16 12:42:00 22.15 kg/m2 [facility] Systolic blood pressure 2023-05-01 08:48:00 136 mm[Hg] [facility] Diastolic blood pressure 2023-05-01 08:48:00 93 mm[Hg] [facility] Heart rate 2023-05-01 08:48:00 70 /min [facility] Body temperature 2023-05-01 08:48:00 36.78 Sumi [facility] Respiratory rate 2023-05-01 08:48:00 18 /min [facility] Body height 2023-05-01 08:48:00 175.3 cm [facility] Body weight 2023-05-01 08:48:00 73.483 kg [facility] BMI 2023-05-01 08:48:00 23.92 kg/m2 [facility] Oxygen saturation in Arterial blood by Pulse oximetry 2023-05-01 08:48:00 98 /min [facility] Systolic blood pressure 2023-03-22 07:34:00 154 mm[Hg] [facility] Diastolic blood pressure 2023-03-22 07:34:00 107 mm[Hg] [facility] Heart rate 2023-03-22 07:34:00 71 /min [facility] Body temperature 2023-03-22 07:34:00 36.56 Sumi [facility] Respiratory rate 2023-03-22 07:34:00 16 /min [facility] Oxygen saturation in Arterial blood by Pulse oximetry 2023-03-22 07:34:00 100 /min [facility] Body height 2023-03-22 06:17:00 175.3 cm [facility] Body weight 2023-03-22 06:17:00 72.485 kg [facility] BMI 2023-03-22 06:17:00 23.60 kg/m2 [facility] Systolic blood pressure 2023-02-10 03:00:00 195 mm[Hg] [facility] Diastolic blood pressure 2023-02-10 03:00:00 98 mm[Hg] [facility] Heart rate 2023-02-10 03:00:00 137 /min [facility] Respiratory rate 2023-02-10 03:00:00 18 /min [facility] Oxygen saturation in Arterial blood by Pulse oximetry 2023-02-10 03:00:00 90 /min [facility] Body temperature 2023-02-10 02:30:00 37.78 Sumi [facility] Body weight 2023-02-09 23:09:00 79.379 kg [facility] BMI 2023-02-09 23:09:00 25.84 kg/m2 [facility] Systolic blood pressure 2023-02-08 12:10:00 163 mm[Hg] [facility] Diastolic blood pressure 2023-02-08 12:10:00 102 mm[Hg] [facility] Respiratory rate 2023-02-08 12:10:00 16 /min [facility] Heart rate 2023-02-08 09:00:00 80 /min [facility] Oxygen saturation in Arterial blood by Pulse oximetry 2023-02-08 09:00:00 97 /min [facility] Body temperature 2023-02-08 08:26:00 36.78 Sumi [facility] Body height 2023-02-08 08:26:00 175.3 cm [facility] Body weight 2023-02-08 08:26:00 79.379 kg [facility] BMI 2023-02-08 08:26:00 25.84 kg/m2 [facility] Systolic blood pressure 2023-01-13 05:00:00 150 mm[Hg] [facility] Diastolic blood pressure 2023-01-13 05:00:00 99 mm[Hg] [facility] Heart rate 2023-01-13 05:00:00 74 /min [facility] Respiratory rate 2023-01-13 03:30:00 9 /min [facility] [facility] Oxygen saturation in Arterial blood by Pulse oximetry 2023-01-13 03:30:00 100 /min [facility] Body temperature 2023-01-13 02:06:00 37 Sumi [facility] Body height 2023-01-13 02:06:00 175.3 cm [facility] Body weight 2023-01-13 02:06:00 68.04 kg [facility] BMI 2023-01-13 02:06:00 22.15 kg/m2 [facility] Systolic blood pressure 2021-11-24 13:48:00 141 mm[Hg] [facility] Diastolic blood pressure 2021-11-24 13:48:00 90 mm[Hg] [facility] Heart rate 2021-11-24 13:48:00 80 /min [facility] Body temperature 2021-11-24 13:48:00 36.78 Sumi [facility] Respiratory rate 2021-11-24 13:48:00 22 /min [facility] Body weight 2021-11-24 13:48:00 79.379 kg [facility] BMI 2021-11-24 13:48:00 27.41 kg/m2 [facility] Oxygen saturation in Arterial blood by Pulse oximetry 2021-11-24 13:48:00 99 /min [facility] Systolic blood pressure 2021-10-23 18:43:00 136 mm[Hg] [facility] Diastolic blood pressure 2021-10-23 18:43:00 89 mm[Hg] [facility] Heart rate 2021-10-23 18:43:00 73 /min [facility] Body temperature 2021-10-23 18:43:00 37 Sumi [facility] Respiratory rate 2021-10-23 18:43:00 18 /min [facility] Body weight 2021-10-23 18:43:00 70.308 kg [facility] BMI 2021-10-23 18:43:00 24.28 kg/m2 [facility] Oxygen saturation in Arterial blood by Pulse oximetry 2021-10-23 18:43:00 100 /min [facility] Systolic blood pressure 2020-04-18 16:00:00 132 mm[Hg] [facility] Diastolic blood pressure 2020-04-18 16:00:00 95 mm[Hg] [facility] Heart rate 2020-04-18 16:00:00 82 /min [facility] Body temperature 2020-04-18 16:00:00 37.17 Sumi [facility] Respiratory rate 2020-04-18 16:00:00 18 /min [facility] Oxygen saturation in Arterial blood by Pulse oximetry 2020-04-18 16:00:00 98 /min [facility] Body weight 2020-04-18 08:08:00 70.988 kg [facility] BMI 2020-04-18 08:08:00 24.51 kg/m2 [facility] Body height 2020-04-17 22:34:00 170.2 cm [facility] Systolic blood pressure 2020-04-18 16:00:00 132 mm[Hg] [facility] Diastolic blood pressure 2020-04-18 16:00:00 95 mm[Hg] [facility] Heart rate 2020-04-18 16:00:00 82 /min [facility] Body temperature 2020-04-18 16:00:00 37.17 Sumi [facility] Respiratory rate 2020-04-18 16:00:00 18 /min [facility] Oxygen saturation in Arterial blood by Pulse oximetry 2020-04-18 16:00:00 98 /min [facility] Body weight 2020-04-18 08:08:00 70.988 kg [facility] BMI 2020-04-18 08:08:00 24.51 kg/m2 [facility] Body height 2020-04-17 22:34:00 170.2 cm [facility] Systolic blood pressure 2020-04-09 12:12:00 134 mm[Hg] [facility] Diastolic blood pressure 2020-04-09 12:12:00 74 mm[Hg] [facility] Heart rate 2020-04-09 12:12:00 80 /min [facility] Body temperature 2020-04-09 12:12:00 37 [facility] Respiratory rate 2020-04-09 12:12:00 18 /min [facility] Oxygen saturation in Arterial blood by Pulse oximetry 2020-04-09 12:12:00 99 /min [facility] Body weight 2020-04-09 08:55:00 70.489 kg [facility] BMI 2020-04-09 08:55:00 22.95 kg/m2 [facility] Body height 2020-04-08 06:35:00 175.3 cm [facility] Systolic blood pressure 2020-04-09 12:12:00 134 mm[Hg] [facility] Diastolic blood pressure 2020-04-09 12:12:00 74 mm[Hg] [facility] Heart rate 2020-04-09 12:12:00 80 /min [facility] Body temperature 2020-04-09 12:12:00 37 [facility] Respiratory rate 2020-04-09 12:12:00 18 /min [facility] Oxygen saturation in Arterial blood by Pulse oximetry 2020-04-09 12:12:00 99 /min [facility] Body weight 2020-04-09 08:55:00 70.489 kg [facility] BMI 2020-04-09 08:55:00 22.95 kg/m2 [facility] Body height 2020-04-08 06:35:00 175.3 cm [facility] Procedures Procedure Date / Time Performed Performing Clinician Source EKG-12 LEAD 2023-10-15 20:01:31 Fabian Lawrence [facility] CT CHEST PULMONARY ANGIOGRAM 2023-10-15 19:25:33 Fabian Lawrence [facility] LACTIC ACID WHOLE BLOOD 2023-10-15 18:32:00 Edmund Lawrence [facility] PHOSPHORUS 2023-10-15 18:31:00 Fabian Lawrence [facility] LIPASE 2023-10-15 18:31:00 Fabian Lwarence [facility] MAGNESIUM 2023-10-15 18:31:00 Syeda [facility] TROPONIN I 2023-10-15 18:31:00 Syeda [facility] COMP. METABOLIC PANEL ([id number]) 2023-10-15 18:31:00 Fabian Lawrence [facility] CBC WITH DIFF 2023-10-15 18:31:00 Fabian Lawrence [facility] D-DIMER 2023-10-15 18:31:00 Syeda [facility] RAPID INFLUENZA A/B 2023-10-15 18:31:00 Fiona Lawrence [facility] N-TERMINAL PRO-BNP 2023-10-15 18:31:00 Nigel Lawrence [facility] COVID-19 (ID NOW RAPID TESTING) 2023-10-15 18:31:00 Fabian Lawrence [facility] TROPONIN I 2023-10-15 04:58:00 Milagros Courtney [facility] XR CHEST 1 VW 2023-10-15 02:49:23 Milagros Courtney [facility] LIPASE 2023-10-15 02:49:00 Milagros Courtney [facility] TROPONIN I 2023-10-15 02:49:00 Milagros Courtney [facility] COMP. METABOLIC PANEL ([id number]) 2023-10-15 02:49:00 Milagros Courtney [facility] CBC WITH DIFF 2023-10-15 02:49:00 Milagros Courtney [facility] COVID-19 (ID NOW RAPID TESTING) 2023-06-16 18:39:00 Osito Hillman [facility] CT ABDOMEN PELVIS W CONTRAST 2023-06-16 14:31:27 Osito Hillman [facility] URINE DRUG (IMMUNOASSAY) - COMPREHENSIVE DRUG SCREEN 2023-06-16 14:13:00 Osito Hillman [facility] ASSIGNMENT OF BENEFITS 2023-06-16 13:43:45 Docto r Unassigned, [place] [facility] CONSENT/REFUSAL FOR DIAGNOSIS AND TREATMENT 2023-06-16 13:42:28 Doctor Unassigned, [place] [facility] CREATINE KINASE 2023-06-16 13:02:00 Osito Hillman [facility] LIPASE 2023-06-16 13:02:00 Osito Hillman [facility] COMP. METABOLIC PANEL (31123) 2023-06-16 13:02:00 Osito Hillman [facility] CBC WITH DIFF 2023-06-16 13:02:00 Osito Hillman [facility] NOTICE OF PRIVACY PRACTICES 2023-05-01 08:43:44 Doctor Unassigned, [place] [facility] CONSENT/REFUSAL FOR DIAGNOSIS AND TREATMENT 2023-05-01 08:43:11 Doctor Unassigned, [place] [facility] CONSENT/REFUSAL FOR DIAGNOSIS AND TREATMENT 2023-03-22 05:59:51 Doctor Unassigned, [place] [facility] URINALYSIS 2023-02-10 01:53:00 Yancy Crump [facility] CREATINE KINASE 2023-02-10 00:43:00 Yancy Crump [facility] LIPASE 2023-02-10 00:43:00 Yancy Crump [facility] COMP. METABOLIC PANEL ([id number]) 2023-02-10 00:43:00 Yancy Crump [facility] CBC WITH DIFF 2023-02-10 00:43:00 Yancy Crump [facility] XR CHEST 1 VW 2023-02-08 12:06:00 Emily Watt U [facility] URINALYSIS 2023-02-08 11:25:00 Emily Watt [facility] URINE DRUG (IMMUNOASSAY) - COMPREHENSIVE DRUG SCREEN W/O REFLEX 2023-02-08 11:25:00 Emily Watt [facility] LIPASE 2023-02-08 08:40:00 Emily Watt Un [facility] COMP. METABOLIC PANEL ([id number]) 2023-02-08 08:40:00 Emily Watt [facility] CBC WITH DIFF 2023-02-08 08:40:00 ShukriEmily Jung [facility] URINALYSIS 2023-01-13 04:28:00 Harshad Lowe [facility] CT ABDOMEN PELVIS W CONTRAST 2023-01-13 03:23:28 Harshad Lowe [facility] LIPASE 2023-01-13 02:22:00 Harshad Lowe [facility] COMP. METABOLIC PANEL ([id number]) 2023-01-13 02:22:00 Harshad Lowe [facility] CBC WITH DIFF 2023-01-13 02:22:00 Harshad Lowe [facility] CONSENT/REFUSAL FOR DIAGNOSIS AND TREATMENT 2021-11-24 13:39:07 Doctor Unassigned, [place] [facility] ASSIGNMENT OF BENEFITS 2021-10-23 19:03:33 Docto r Unassigned, [place] [facility] NOTICE OF PRIVACY PRACTICES 2021-10-23 18:37:52 Doctor Unassigned, [place] [facility] CONSENT/REFUSAL FOR DIAGNOSIS AND TREATMENT 2021-10-23 18:36:42 Doctor Unassigned, [place] [facility] MAGNESIUM 2020-04-18 10:16:00 Estrella Joseph [facility] TROPONIN I 2020-04-18 10:16:00 Ramses Wiseman [facility] BASIC METABOLIC PANEL (NA, K, CL, CO2, GLUCOSE, BUN, CREATININE, CA) 2020-04-18 10:16:00 Brunilda Luevano [facility] LIPID PANEL ([id number])(TOTAL CHOLESTEROL, TRIGLYCERIDES, HDL) 2020-04-17 17:32:00 Estrella Joseph [facility] EKG-12 LEAD 2020-04-17 16:25:28 Milagros Courtney [facility] SERUM DRUG (IMMUNOASSAY) - COMPREHENSIVE DRUG SCREEN 2020-04-17 16:17:00 Estrella Joseph [facility] PROTHROMBIN TIME / INR 2020-04-17 16:17:00 Kecia Joseph [facility] D-DIMER 2020-04-17 16:17:00 [facility] N-TERMINAL PRO-BNP 2020-04-17 16:17:00 [facility] 2020-04-17 15:08:28 [facility]agros Courtney [facility] PHOSPHORUS 2020-04-17 15:07:00 [facility] TROPONIN I 2020-04-17 15:07:00 [facility] THYROID STIMULATING HORMONE 2020-04-17 15:07:00 Opal [facility] COVID-19 (ID NOW RAPID TESTING) 2020-04-17 13:14:00 Milagros Courtney [facility] ACUTE CARE VENOUS BLOOD GAS 2020-04-17 13:10:00 Milagros Courtney [facility] EKG-12 LEAD 2020-04-17 13:04:30 Milagros Courtney [facility] EKG-12 LEAD 2020-04-17 12:46:15 Milagros Courtney [facility] CREATINE KINASE 2020-04-17 11:54:00 [facility] 2020-04-17 11:54:00 Murtaza Ramirez [facility] TROPONIN I 2020-04-17 11:54:00 Murtaza Ramirez [facility] COMP. METABOLIC PANEL ([id number]) 2020-04-17 11:54:00 Murtaza Ramirez [facility] CBC WITH DIFFERENTIAL 2020-04-17 11:54:00 Francesco Ramirez [facility] GLYCOSYLATED HEMOGLOBIN (A1C) 2020-04-17 11:54:00 Opal [facility] EKG-12 LEAD 2020-04-17 11:49:44 Murtaza Ramirez [facility] EKG-12 LEAD 2020-04-17 11:38:11 Murtaza Ramirez [facility] CREATINE KINASE 2020-04-09 08:58:00 West, Abel [facility] BASIC METABOLIC PANEL (NA, K, CL, CO2, GLUCOSE, BUN, CREATININE, CA) 2020-04-09 08:58:00 Abel West [facility] CBC WITH DIFFERENTIAL 2020-04-09 08:58:00 Brett [facility] BASIC METABOLIC PANEL (NA, K, CL, CO2, GLUCOSE, BUN, CREATININE, CA) 2020-04-08 10:48:00 Mike Bob [facility] COVID-19 (ID NOW RAPID TESTING) 2020-04-08 05:10:00 Yancy Crump [facility] TROPONIN I 2020-04-08 04:22:00 Keena [facility] EKG-12 LEAD 2020-04-08 04:13:08 Osito Hillman [facility] EKG-12 LEAD 2020-04-08 04:08:34 Keena [facility] URINALYSIS 2020-04-08 01:57:00 Keena Yancy [facility] ADC / LCC - DRUG SCREEN TRIAGE 2020-04-08 01:57:00 Yancy Crump [facility] CREATINE KINASE 2020-04-08 01:18:00 [facility] 2020-04-08 01:18:00 Keena [facility] Shantal [facility] TROPONIN I 2020-04-08 01:18:00 Janeth Crumpala Shantal [facility] HEPATIC FUNCTION PANEL ([id number]) (ALB,T.PRO,BILI T,BU/BC,ALT,AST,ALK PHOS) 2020-04-08 01:18:00 Yancy Crump [facility] BASIC METABOLIC PANEL (NA, K, CL, CO2, GLUCOSE, BUN, CREATININE, CA) 2020-04-08 01:18:00 Yancy Crump [facility] CBC WITH DIFFERENTIAL 2020-04-08 01:18:00 Hugo Crump [facility] EKG-12 LEAD 2020-04-08 00:55:43 Keena Yancy [facility] NOTICE OF PRIVACY PRACTICES 2020-04-08 00:32:15 Doctor Unassigned, [place] [facility] CONSENT/REFUSAL FOR DIAGNOSIS AND TREATMENT 2020-04-08 00:32:00 Doctor Unassigned, [place] [facility] Encounters Start Date/Time End Date/Time Encounter Type Admission Type Attending [facility] Care Department Encounter ID Source 2023-10-15 12:05:00 2023-10-15 15:31:00 Emergency FABIAN FELDMAN [facility] ERT [id number] [facility] 2023-10-15 12:05:00 2023-10-15 15:31:00 Emergency Fabian Lawrence [facility] 1.2.840.114 350.1.13.10 4.2.7.2.686 [id number] [facility] 2023-10-14 20:17:00 2023-10-15 00:42:00 Emergency MILAGROS WATSON [facility] ERT [id number] [facility] 2023-10-14 20:17:00 2023-10-15 00:42:00 Emergency Milagros Courtney [facility] 1.2.840.114 350.1.13.10 4.2.7.2.686 [id number] [facility] 2023-06-16 07:46:00 2023-06-16 14:40:00 Emergency X OSITO HILLMAN [facility] ERT [id number] [facility] 2023-06-16 07:46:00 2023-06-16 14:40:00 Emergency Osito Hillman [facility] 1.2.840.114 350.1.13.10 4.2.7.2.686 [id number] [facility] 2023-06-14 21:15:00 2023-06-15 01:17:00 Emergency Jcarlos Yee [facility] [id number] [facility] 2023-05-01 03:52:00 2023-05-01 06:14:00 Emergency X MILAGROS COURTNEY [facility] ERT [id number] [facility] 2023-05-01 03:52:00 2023-05-01 06:14:00 Emergency Milagros Courtney [facility] 1.2.840.114 350.1.13.10 4.2.7.2.686 [id number] [facility] 2023-03-22 01:19:00 2023-03-22 02:41:00 Emergency X RAMIRO TIPTON [facility] ERT [id number] [facility] 2023-03-22 01:19:00 2023-03-22 02:41:00 Emergency Ramiro Tipton [facility] 1.2.840.114 350.1.13.10 4.2.7.2.686 [id number] [facility] 2023-02-09 18:10:00 2023-02-09 23:44:00 Emergency YANCY PINA [facility] ERT [id number] [facility] 2023-02-09 18:10:00 2023-02-09 23:44:00 Emergency Yancy Crump [facility] 1.2.840.114 350.1.13.10 4.2.7.2.686 [id number] [facility] 2023-02-08 03:22:00 2023-02-08 07:21:00 Emergency X MURTAZA RAMIREZ [facility] ERT [id number] [facility] 2023-02-08 03:22:00 2023-02-08 07:21:00 Emergency Emily Watt Phillip [facility] 1.2.840.114 350.1.13.10 4.2.7.2.686 [id number] [facility] 2023-01-12 21:09:00 2023-01-13 00:30:00 Emergency HARSHAD ARENAS [facility] ERT [id number] [facility] 2023-01-12 21:09:00 2023-01-13 00:30:00 Emergency Harshad Lowe [facility] 1.2.840.114 350.1.13.10 4.2.7.2.686 [id number] [facility] 2021-11-24 07:50:00 2021-11-24 08:22:00 Emergency KENIA BECERRIL [facility] ERT [id number] [facility] 2021-11-24 07:50:00 2021-11-24 08:22:00 Emergency Kenia Alcala [facility] 1.2.840.114 350.1.13.10 4.2.7.2.686 [id number] [facility] 2021-10-23 12:44:00 2021-10-23 13:18:00 Emergency SMILEY NAYLOR [facility] ERT [id number] [facility] 2021-10-23 12:44:00 2021-10-23 13:18:00 Emergency Smiley Welch [facility] 1.2.840.114 350.1.13.10 4.2.7.2.686 [id number] [facility] 2020-04-17 06:30:30 2020-04-18 11:35:00 Emergency Milagros Courtney [facility] 1.2.840.114 350.1.13.10 4.2.7.2.686 [id number] 2020-04-17 06:30:30 2020-04-18 11:35:00 Emergency Milagros Courtney [facility] 1.2.840.114 350.1.13.10 4.2.7.2.686 [id number] [facility] 2020-04-17 06:30:30 2020-04-17 06:30:30 Emergency X MILAGROS COURTNEY [facility] ERT [id number] [facility] 2020-04-14 00:00:00 2020-04-14 00:00:00 Telephone [facility] 1.2.840.114 350.1.13.10 4.2.7.2.686 [id number] 2020-04-14 00:00:00 2020-04-14 00:00:00 Telephone [facility] 1.2.840.114 350.1.13.10 4.2.7.2.686 [id number] [facility] 2020-04-07 19:37:02 2020-04-09 10:30:00 [facility] 1.2.840.114 350.1.13.10 4.2.7.2.686 [id number] 2020-04-07 19:37:02 2020-04-09 10:30:00 [facility] 1.2.840.114 350.1.13.10 4.2.7.2.686 [id number] [facility] 2020-04-07 19:37:02 2020-04-07 19:37:02 Emergency X YANCY CRUMP [facility] ERT [id number] [facility] Results Test Description Test Time Test Comments [...] PLEURA: The lungs are well-expanded. Diffuse subtle pityjcdujbnzkkcaq-rk-x ud nodules are noted. No distinct consolidation. No pleuralabnormality detected. VISUALIZED UPPER ABDOMEN: The included solid organs and hollow viscusappear within normal limits. OSSEOUS STRUCTURES AND SOFT TISSUES: Mild thoracic spondylosis. The softtissues appear normal. [id number]:22[facility]03* Test Item Value Reference Range Interpretation Comme nts TROPONIN I (test code = 9947672966) 0.010 ng/mL <=0.034 MARIA LUZ (test code [...] of biotin. Lab Interpretation (test code = 17274-1) Normal [facility] [id number] 19:19:41* Test Item Value Reference Range Interpretation Comme nts NT-proBNP (test code = 94652-4) 195 pg/mL <=125 MARIA LUZ (test code = MARIA LUZ) Result Indeterminate-Consid er causes of NT-proBNP elevation other than Heart failure such as acute coronary syndrome, pulmonary embolism, pulmonary hypertension, sepsis, stroke, and renal dysfunction. Lab Interpretation (test code = 71119-9) Abnormal [facility] MET[facility]OLIC PANEL (35123)2023-10-15 19:12:02* Test Item Value Reference Range Interpretation Comme nts NA (test code = 8446476745) 134 mmol/L 135-145 L K (test code = 5778593156) 3.2 mmol/L 3.5-5.0 L CL (test code = 9010114676) 99 mmol/L 98-108 CO2 TOTAL (test code = 9617235099) 21 mmol/L 23-31 L AGAP (test code = 9238021499) 14 2-16 BUN (test code = 0793784610) 19 mg/dL 7-23 GLUCOSE (test code = 5829878153) 121 mg/dL 70-110 H CREATININE (test code = 2236052252) 0.93 mg/dL 0.60-1.25 TOTAL BILI (test code = 2469345362) 0.4 mg/dL 0.1-1.1 CALCIUM (test code = 7512086724) 8.9 mg/dL 8.6-10.6 T PROTEIN (test code = 6935594626) 7.2 g/dL 6.3-8.2 ALBUMIN (test code = 4653090774) 4.0 g/dL 3.5-5.0 ALK PHOS (test code = 5045172681) 76 U/L 34-122 ALTv (test code = 1742-6) 33 U/L 5-50 AST(SGOT) (test code = 0986786606) 37 U/L 13-40 eGFR (test code = 29425-7) 105.1 mL/min/1.73m2 CKD-EPI eGFR (2020). Assuming creatinine has been stable day-to-day for at least three months, the eGFR indicates Category G1 (>= 90 mL/min/1.73 m2) Lab Interpretation (test code = 91313-9) Abnormal [facility]2024-01-08 19:12:02* Test Item Value Reference Range Interpretation Comme nts MAGNESIUM (test code = 0327995513) 1.7 mg/dL 1.7-2.4 Lab Interpretation (test cod e = 59494-1) Normal [facility]2024-01-08 19:11:42* Test Item Value Reference Range Interpretation Comme nts PHOSPHORUS (test code = 2149115221) 3.2 mg/dL 2.5-5.0 Lab Interpretation (test cod e = 26138-9) Normal [facility]2024-01-08 19:11:21* Test Item Value Reference Range Interpretation Comme nts LIPASE (test code = 5678022771) 76 U/L 0-220 Lab Interpretation (test cod e = 77184-0) Normal [facility] Center[facility] Acid Whole [id number] 19:00:13* Test Item Value Reference Range Interpretation Comme nts LACTIC ACID (test code = 4651755512) 1.50 mmol/L 0.50-2.20 Lab Interpretation (test cod e = 97334-1) Normal [facility] Center[facility]-[id number] 18:57:23* Test Item Value Reference Range Interpretation Comments D-DIMER (test code = 5543753259) 0.65 See_Comment H [Automated message] The system [...] a diagnosis. Lab Interpretation (test code = 42098-2) Abnormal [facility] Center[facility] [id number] 06:01:12* Test Item Value Reference Range Interpretation Comme nts TROPONIN I (test code = 6526949963) 0.013 ng/mL <=0.034 MARIA LUZ (test code [...] of biotin. Lab Interpretation (test code = 35133-8) Normal [facility] [id number] 03:28:44* Test Item Value Reference Range Interpretation Comme nts TROPONIN I (test code = 3570119701) 0.011 ng/mL <=0.034 MARIA LUZ (test code [...] of biotin. Lab Interpretation (test code = 74307-4) Normal [facility] with [id number] 03:22:19* Test Item Value Reference Range Interpretation Comme nts WBC (test code = 6690-2) 7.63 See_Comment [Automated [employer] The system which generated this result transmitted reference range: 4.20 - 10.70 10*3/?L. The reference range was not used to interpret this result as normal/abnormal. RBC (test code = 789-8) 5.08 See_Comment [Automated [employer] The system which generated this result transmitted [...] g/dL 31.2-35.0 H RDW-SD (test code = 76613-8) 42.4 fL 38.5-51.6 RDW-CV (test code = 788-0) 12.8 % 12.1-15.4 PLT (test code = 777-3) 124 See_Comment L [Automated [employer]] The system which generated this result transmitted reference range: 150 - 328 10*3/?L. The reference range was not used to interpret this result as normal/abnormal. MPV (test code = 75983-2) 11.8 fL 9.8-13.0 IPF % (test code = 9536424462) 8.9 % 1.2-10.7 Platelet count measured by fluorescence method. NRBC/100 WBC (test code = 9952552932) 0.0 See_Comment [Automated [employer]] The system which generated this result transmitted reference range: 0.0 - 10.0 /100 WBCs. The reference range was not used to interpret this result as normal/abnormal. NRBC x10^3 (test code = 2601769835) See_Comment [Automated [employer] ge] The system which generated this result transmitted reference range: 10*3/?L. The reference range was not used to interpret this result as normal/abnormal. GRAN MAT (NEUT) % (test code = 770-8) 59.7 % IMM GRAN % (test code = 4380997485) 0.30 % LYMPH % (test code = 736-9) 22.5 % MONO % (test code = 5905-5) 17.4 % EOS % (test code = 713-8) 0.0 % BASO % (test code = 706-2) 0.1 % GRAN MAT x10^3(ANC) (test code = 2610197009) 4.55 10*3/uL 1.99-6.95 IMM GRAN x10^3 (test code = 2276779293) 0.00-0.06 LYMPH x10^3 (test code = 731-0) 1.72 10*3/uL 1.09-3.23 MONO x10^3 (test code = 742-7) 1.33 10*3/uL 0.36-1.02 H EOS x10^3 (test code = 711-2) 0.06-0.53 L BASO x10^3 (test code = 704-7) 0.01-0.09 Lab Interpretation (test code = 60963-2) [facility] ([facility]99)2023-10-15 03:16:47* Test Item Value Reference Range Interpretation Comme nts NA (test code = 6410746889) 133 mmol/L 135-145 L K (test code = 4005010438) 3.4 mmol/L 3.5-5.0 L CL (test code = 9894310514) 100 mmol/L 98-108 CO2 TOTAL (test code = 9765686064) 20 mmol/L 23-31 L AGAP (test code = 5896494307) 13 2-16 BUN (test code = 8473968759) 25 mg/dL 7-23 H GLUCOSE (test code = 1261496967) 123 mg/dL 70-110 H CREATININE (test code = 3765690156) 0.95 mg/dL 0.60-1.25 TOTAL BILI (test code = 5992733032) 0.4 mg/dL 0.1-1.1 CALCIUM (test code = 8567284106) 9.0 mg/dL 8.6-10.6 T PROTEIN (test code = 3431768835) 7.4 g/dL 6.3-8.2 ALBUMIN (test code = 2677966270) 4.2 g/dL 3.5-5.0 ALK PHOS (test code = 7563361728) 76 U/L 34-122 ALTv (test code = 1742-6) 32 U/L 5-50 AST(SGOT) (test code = 0128211380) 34 U/L 13-40 eGFR (test code = 58314-2) 102.5 mL/min/1.73m2 CKD-EPI eGFR (2020). Assuming creatinine has been stable day-to-day for at least three months, the eGFR indicates Category G1 (>= 90 mL/min/1.73 m2) Lab Interpretation (test code = 33213-7) [facility]normal [facility] 1 [id number] 03:16:37CHEST SINGLE VIEW CLINICAL HISTORY: Chest pain. ORDERING PHYSICIAN: AYSE COURTNEY TECHNIQUE: Frontal view of chest COMPARISON: 02/08/2023 FINDINGS: There is a normal cardiomediastinal silhouette. The pulmonary vascularitydoes not appear congested. The lungs appear clear demonstrating no focalpulmonary consolidation, pleural effusion, or pneumothorax. No acuteosseous process is observed. [facility] CenterLipase2024-01-08 03:16:27* Test Item Value Reference Range Interpretation Comme nts LIPASE (test code = 5456384396) 85 U/L 0-220 Lab Interpretation (test cod e = 10647-8) Normal [facility] CenterTROP-I HIGH [id number] 00:25:00* Test Item Value Reference Range Interpretation [...] and URLs may varyby method. CBC W/O [id number] 22:58:00* Test Item Value Reference Range Interpretation [...] 7.0-9.6 H - CT ABD PELVIS W/O [id number] 22:46:00 [facility] 1980 Sex: M Name: BRUCE OSWALD [facility] : 1980 Age/S: 43 / M [address] Unit #: [id number] Loc: [place] [address] Phys: Jcarlos Mora MD Acct: [id number] Dis Date: Status: REG ER PHONE #:[phone] Exam Date: 06/14/2023 9529 FAX #: Reason: gen abdominal pain EXAMS: CPT: [id number] CTABD PELVIS W/O CONT 26610 EXAM: - CT ABD PELVIS W/O CONT [...] Spleen: Normal. Adrenals: Normal. Genitourinary: The kidneys arenormal. There is no evidence of hydronephrosis of either kidney. There is no evidence of renal calculus. Evaluation of the bladder is limited, but no obvious bladder abnormality is present. Gastrointestinal: No bowel obstruction or perienteric inflammation. The appendix is not visualized. PAGE 1 Signed Report (CONTINUED) Name: BRUCE OSWALD [facility] : 1980 Age/S: 43 / M [address] [facility] Unit #: [id number] Loc: [place] [address] Phys: Jcarlos Mora MD Acct: [id number] Dis Date: Status: REG ER PHONE #: [phone] Exam Date: 06/14/2023 221 FAX #: Reason: gen abdominal painEXAMS: CPT: [id number] CT ABD PELVIS W/O CONT 81429 (Continued) Vascular: The aorta is grossly normal [...] RT(R)(CT) CTDI: DLP: Trnscb Date/Time: 06/14/2023 (2245) Petr.HV2 Orig Print D/T: S: 06/14/2023 (7448) PAGE 2 Signed ReportBASIC METABOLIC [id number] 22:09:00* Test Item Value Reference Range Interpretation [...] CA) 7.5 MG/DL 8.5-10.1 L HEPATIC FUNCTION [id number] 22:09:00* Test Item Value Reference Range Interpretation [...] code = ALKP) 71 Unit/L 50-136 N [id number] 22:09:00* Test Item Value Reference Range Interpretation Comme nts LIPASE (test code = LIP) 20 Unit/L 114-286 L TROP-I HIGH [id number] 22:09:00* Test Item Value Reference Range Interpretation [...] quantitative results and URLs may varyby method. [id number] 22:09:00* Test Item Value Reference Range Interpretation Comme nts ALCOHOL (test code = ALC) < 3 MG/DL 0-10 N - XR CHEST 1 [id number] 21:55:00 [facility] : 1980 Sex: M Name: BRUCE OSWALD [place] : 1980 Age/S: 43 / M [address] Unit #: [id number] Loc: [place] [address] Phys: Jcarlos Mora MD Acct: [id number] Dis Date: Status: PRE ER PHONE #:[phone] Exam Date: 06/14/20232124 FAX #: Reason: chest pain EXAMS: CPT: [id number] XR CHEST 1 V 66824 Fluoro Time: DAP (Gy m2): Air Kerma (mGy): EXAM: - XR CHEST 1 V CLINICAL HISTORY: chest painTECHNIQUE: Single frontal view. COMPARISON: None available. LOCATION: H65 FINDINGS: The trachea appears normal. The mediastinum and cardiac silhouette are within normal limits for size. The lungs areclear. No pleural effusions. Visualized soft tissues and osseous structures are grossly unremarkable. IMPRESSION: No acute cardiopulmonary process. at 2155 Reported and signed by: Jacobo Willis D.O. CC: Jcarlos Mora MD PAGE 1 Signed Report Name: BRUCE OSWALD [place] : 1980 Age/S: 43 / M [address] Unit #: [id number] Loc: [place] [address] Phys: Jcarlos Mora MD Acct: [id number] Dis Date: Status: PRE ERPHONE #: [phone] Exam Date: 06/14/20232124 FAX #: Reason: chest pain EXAMS: CPT: [id number] XR CHEST 1 V 70173 Fluoro Time: DAP (Gy m2): Air Kerma (mGy): (Continued) Technologist: Alistair Alcala, RT(R)(CT) Trnscb Date/Time: 06/14/2023 (2154) [email or web address] Orig Print D/T: S: 06/14/2023 (5384) PAGE 2 Signed ReportComplete Metabolic Guatp5812-78-81 09:11:50* Test Item Value Reference Range Interpretation Comme nts NA (test code = 0968485305) 134 mmol/L 135-145 L K (test code = 6409439675) 4.5 mmol/L 3.5-5.0 CL (test code = 6589722787) 102 mmol/L 98-108 CO2 TOTAL (test code = 2828089215) 15 mmol/L 23-31 L AGAP (test code = 4201624832) 17 2-16 H BUN (test code = 1387815502) 29 mg/dL 7-23 H GLUCOSE (test code = 4193424692) 192 mg/dL 70-110 H CREATININE (test code = 2603204319) 1.67 mg/dL 0.60-1.25 H TOTAL BILI (test code = 8784875412) 0.8 mg/dL 0.1-1.1 CALCIUM (test code = 7575962038) 9.9 mg/dL 8.6-10.6 T PROTEIN (test code = 5074747116) 8.8 g/dL 6.3-8.2 H ALBUMIN (test code = 8540161026) 5.4 g/dL 3.5-5.0 H ALK PHOS (test code = 0124770947) 89 U/L 34-122 ALTv (test code = 1742-6) 37 U/L 5-50 AST(SGOT) (test code = 0252339784) 54 U/L 13-40 H eGFR (test code = 2236449631) 45.6 mL/min/1.73m2 MARIA LUZ (test code = [...] imaging tests). Lab Interpretation (test code = 86286-8) Abnormal [facility] CenterLipase, [id number] 09:11:50* Test Item Value Reference Range Interpretation Comme nts LIPASE (test code = 6028148857) 19 U/L 0-220 Lab Interpretation (test cod e = 81972-1) Normal [facility] CenterCB with Gqhwhmxjpvzl8490-74-67 08:59:28* Test Item Value Reference Range Interpretation [...] g/dL 31.2-35.0 H RDW-SD (test code = 47612-7) 44.0 fL 38.5-51.6 RDW-CV (test code = 788-0) 13.3 % 12.1-15.4 PLT (test code = 777-3) 150 See_Comment [Automated message] The system which generated this result transmitted reference range: 150 - 328 10*3/?L. The reference range was not used to interpret this result as normal/abnormal. MPV (test code = 73766-7) 12.0 fL 9.8-13.0 NRBC/100 WBC (test code = 9663931434) 0.0 See_Comment [Automated message] The system which generated this result transmitted reference range: 0.0 - 10.0 /100 WBCs. The reference range was not used to interpret this result as normal/abnormal. NRBC x10^3 (test code = 1723838547) See_Comment [Automated message] The system which generated this result transmitted reference range: 10*3/?L. The reference range was not used to interpret this result as normal/abnormal. GRAN MAT (NEUT) % (test code = 770-8) 83.1 % IMM GRAN % (test code = 9625921282) 0.40 % LYMPH % (test code = 736-9) 14.0 % MONO % (test code = 5905-5) 2.3 % EOS % (test code = 713-8) 0.0 % BASO % (test code = 706-2) 0.2 % GRAN MAT x10^3(ANC) (test code = 7743034492) 12.08 10*3/uL 1.99-6.95 H IMM GRAN x10^3 (test code = 9109201868) 0.06 10*3/uL 0.00-0.06 LYMPH x10^3 (test code = 731-0) 2.03 10*3/uL 1.09-3.23 MONO x10^3 (test code = 742-7) 0.33 10*3/uL 0.36-1.02 L EOS x10^3 (test code = 711-2) 0.06-0.53 L BASO x10^3 (test code = 704-7) 0.03 10*3/uL 0.01-0.09 Lab Interpretation (test code = 49281-2) Abnormal [facility] CenterTROPONIN [id number] 13:30:00* Test Item Value Reference Range Interpretation Comme nts TROPONIN I (test code = 8969303397) 0.020 ng/mL See_Comment [Automated message] The system [...] biotin. ? Lab Interpretation (test code = 35011-6) Normal [facility] CenterMagnesium Wvqlp2244-07-62 11:02:00* Test Item Value Reference Range Interpretation Comme nts MAGNESIUM (test code = 1248606335) 2.0 mg/dL 1.7-2.4 Lab Interpretation (test cod e = 38767-1) Normal [facility] CenterBASI METABOLIC PANEL (NA, K, CL, CO2, GLUCOSE, BUN, CREATININE, CA)2020-04-18 11:02:00* Test Item Value Reference Range Interpretation Comme nts NA (test code = 3571277744) 138 mmol/L 135-145 K (test code = 9388304613) 3.7 mmol/L 3.5-5 CL (test code = 2924763647) 112 mmol/L 98-108 H CO2 TOTAL (test code = 5533786809) 22 mmol/L 23-31 L AGAP (test code = 1420719173) 2-16 BUN (test code = 0121089956) 12 mg/dL 7-23 GLUCOSE (test code = 4396271166) 112 mg/dL 70-110 H CREATININE (test code = 9729107423) 0.96 mg/dL 0.6-1.25 CALCIUM (test code = 9194244464) 8.6 mg/dL 8.6-10.6 eGFR Calculation (Non-) (test code = 5246568662) mL/min/1.73m2 eGFR Calculation () (test code = 8722350575) mL/min/1.73m2 MARIA LUZ (test code = MARIA [...] imaging tests). Lab Interpretation (test code = 61109-8) Abnormal [facility] CenterDrug Screen Panel 3 Jhzkc1447-11-28 22:11:00* Test Item Value Reference Range Interpretation Comme nts COMPA S (test code = 1722309900) Negative Negative BENZO S (test code = 0971243143) Negative Negative TRICYCLIC (test code = 4787958498) Negative Negative MARIA LUZ (test code = MARIA LUZ) Serum Drug Screen Cutoff Ranges Barbiturates ? ? - 3 mcg/mLBenzodiazepines ?- 50 ng/mLTCA ?- 300 ng/mL Test developed and characteristics determined by [facility]. The results are to be used only for medical (i.e., treatment) purposes. Unconfirmed screening results must not be used for non-medical purposes (e.g., employment testing, legal testing). Lab Interpretation (test code = 72254-7) Normal [facility] CenterLIPID PANEL (88299)(TOTAL CHOLESTEROL, TRIGLYCERIDES, HDL)2020-04-17 18:13:00* Test Item Value Reference Range Interpretation Comme nts CHOL (test code = 3238829563) 121 mg/dL 120-200 HDL (test code = 0591784551) 42 mg/dL >40 HDLC RATIO (test code = 7989966257) See_Comment [Automated [employer]] The system which generated this result transmitted reference range: <=5.0. The reference range was not used to interpret this result as normal/abnormal. TRIG (test code = 1973960164) 41 mg/dL 30-170 LDL CHOL (test code = 72385-2) 71 mg/dL See_Comment [Automated [employer]] The system which generated this result transmitted reference range: <=160. The reference range was not used to interpret this result as normal/abnormal. VLDL (test code = 2271568423) 8 mg/dL 5-60 Lab Interpretation (test code = 89642-2) Normal [facility] CenterN-TERMINAL SKI-IWG2575-81-11 17:06:00* Test Item Value Reference Range Interpretation Comme nts NT-proBNP (test code = 7928656447) 51 pg/mL See_Comment [Automated message] The system which generated this result transmitted reference range: <=125. The reference range was not used to interpret this result as normal/abnormal. MARIA LUZ (test code = MARIA LUZ) Biotin has been reported to cause a negative bias, interpret results relative to patient's use of biotin. Lab Interpretation (test code = 60992-7) Normal [facility] CenterTHYROID STIMULATING [id number] 16:58:00 * Test Item Value Reference Range Interpretation Comme nts TSH (test code = 1990738918) See_Comment [Automated [employer] The system which generated this result transmitted reference range: 0.45 - 4.70 mIU/L. The reference range was not used to interpret this result as normal/abnormal. Lab Interpretation (test code = 42209-9) Normal [facility] CenterD-MNYFD3984-91-86 16:56:00* Test Item Value Reference Range Interpretation Comments D-DIMER (test code = 2368486263) <0.27 See_Comment [Automated message] The system which [...] a diagnosis. Lab Interpretation (test code = 05404-0) Normal [facility] CenterProthrombin Time / [id number] 16:43:00* Test Item Value Reference Range Interpretation Comme nts PROTIME PATIENT (test code = 5964-2) See_Comment [Automated [employer] The system which generated this result transmitted reference range: 12.0 - 14.7 Seconds. The reference range was not used to interpret this result as normal/abnormal. INR (test code = 6301-6) Normal INR <1.1; Warfarin Therapeutic range 2.0 to 3.0 or 2.5 to 3.5, depending upon the indications. Lab Interpretation (test code = 99686-4) Normal [facility] CenterXR CHEST 1 [id number] 16:42:54No acute cardiopulmonary abnormality. Preliminary Report Dictated [...] abnormality is present. [facility], Radiant Results Inft - 04/17/2020 11:44 AM CDTXR CHEST 1 VWComparison: None availableTechnique: AP radiographs of the chestHistory: N/V, Chest Pain Findings:The lungs are well expandedand clear. No pleural effusion, focalconsolidation, or pneumothorax is identified. The cardiomediastinal silhouette is normal in size. No acute osseous abnormality is present.IMPRESSIONNo acute cardiopulmonary abnormality.Preliminary Report Dictated by Resident: Heri Ling MD., have reviewed this study and agree with theabsuzanne report.[facility] CenterPhosphorus Pujvd3714-78-73 16:09:00* Test Item Value Reference Range Interpretation Comme nts PHOSPHORUS (test code = 2500653260) 2.5 mg/dL 2.5-5 Lab Interpretation (test cod e = 52282-1) Normal [facility] CenterGlycosylated Hemoglobin (A1C)2020-04-17 15:56:00* Test Item Value Reference Range Interpretation Comme nts HGB A1C (test code = 4548-4) 5.5 % 4-6 MARIA LUZ (test code = MARIA LUZ) %A1C (NGSP) Interpretation (ADA)4.8-5.6 ? ? Normal or (Non-Diabetic Range)5.7-6.4 ? ? Increased Risk (Pre-Diabetic)>6.5 ?Diabetes Indicated Lab Interpretation (test code = 22510-7) Normal [facility] CenterTROPONIN [id number] 15:39:00* Test Item Value Reference Range Interpretation Comme nts TROPONIN I (test code = 3099304994) 0.031 ng/mL See_Comment [Automated message] The system [...] biotin. ? Lab Interpretation (test code = 80192-0) Normal [facility] CenterCOVID-19 (ID NOW RAPID TESTING)2020-04-17 14:00:00* Test Item Value Reference Range Interpretation Comme nts SARS-CoV-2 Rapid ID NOW (test code = 70659-5) Not Detected Not Detected MARIA LUZ (test code = MARIA LUZ) ID NOW COVID-19 As say is an isothermal nucleic acid amplification test intended for the qualitative detection of nucleic acid from SARS-CoV-2 viral RNA in nasopharyngeal (HEALTH EDUCATION AIDE) specimens. It is used under Emergency Use [...] clinically indicated. Lab Interpretation (test code = 32868-7) Normal [facility] CenterACUTE CARE VENOUS BLOOD [id number] 13:25:00 * Test Item Value Reference Range Interpretation Comme nts PH (test code = 9973299369) 7.32-7.42 PCO2 NAS (test code = 7301357318) See_Comment L [Automated messa ge] The system which generated this result transmitted reference range: 41 - 51 mmHg. The reference range was not used to interpret this result as normal/abnormal. PO2 NAS (test code = 6016537664) See_Comment [Automated messa ge] The system which generated this result transmitted reference range: 25 - 40 mmHg. The reference range was not used to interpret this result as normal/abnormal. HCO3 NAS (test code = 2867606305) See_Comment L [Automated messa ge] The system which generated this result transmitted reference range: 24 - 28 mEq/L. The reference range was not used to interpret this result as normal/abnormal. AC VBE(BEAKER) (test code = 6084434941) mEq/L Lab Interpretation (test code = 04469-4) Abnormal [facility] CenterCREATINE [id number] 13:01:00* Test Item Value Reference Range Interpretation Comme nts CK (test code = 6987876486) 174 U/L 33-194 Lab Interpretation (test cod e = 90112-6) Normal [facility] CenterCBC WITH [id number] 12:32:00* Test Item Value Reference Range Interpretation [...] g/dL 31.2-35 H RDW-SD (test code = 61374-5) 43.5 fL 38.5-51.6 RDW-CV (test code = 788-0) 12.9 % 12.1-15.4 PLT (test code = 777-3) See_Comment [Automated [employer]] The system which generated this result transmitted reference range: 150 - 328 10*3/?L. The reference range was not used to interpret this result as normal/abnormal. MPV (test code = 22979-2) 11.6 fL 9.8-13 NRBC/100 WBC (test code = 6503243338) See_Comment [Automated [employer]] The system which generated this result transmitted reference range: 0.0 - 10.0 /100 WBCs. The reference range was not used to interpret this result as normal/abnormal. NRBC x10^3 (test code = 6528236225) <0.01 See_Comment [Automated [employer] ge] The system which generated this result transmitted reference range: 10*3/?L. The reference range was not used to interpret this result as normal/abnormal. GRAN MAT (NEUT) % (test code = 770-8) 43.3 % IMM GRAN % (test code = 0396750546) 0.60 % LYMPH % (test code = 736-9) 46.1 % MONO % (test code = 5905-5) 8.3 % EOS % (test code = 713-8) 1.3 % BASO % (test code = 706-2) 0.4 % GRAN MAT x10^3(ANC) (test code = 5861204657) 5.12 10*3/uL 1.99-6.95 IMM GRAN x10^3 (test code = 4501184826) 0.07 10*3/uL 0-0.06 H LYMPH x10^3 (test code = 731-0) 5.45 10*3/uL 1.09-3.23 H MONO x10^3 (test code = 742-7) 0.98 10*3/uL 0.36-1.02 EOS x10^3 (test code = 711-2) 0.15 10*3/uL 0.06-0.53 BASO x10^3 (test code = 704-7) 0.05 10*3/uL 0.01-0.09 Lab Interpretation (test code = 33828-9) [facility]normal [facility] HospitalLUANA [id number] 12:29:00* Test Item Value Reference Range Interpretation Comme nts TROPONIN I (test code = 6943363344) 0.038 ng/mL See_Comment H [Automated message] The [...] biotin. ? Lab Interpretation (test code = 77438-4) Abnormal [facility] CenterCOMP. METABOLIC PANEL (20313)2020-04-17 12:18:00* Test Item Value Reference Range Interpretation Comme nts NA (test code = 8451431834) 135 mmol/L 135-145 K (test code = 1973969525) 3.6 mmol/L 3.5-5 CL (test code = 1550087371) 106 mmol/L 98-108 CO2 TOTAL (test code = 6872547523) 16 mmol/L 23-31 L AGAP (test code = 4911734870) 2-16 BUN (test code = 9504793328) 29 mg/dL 7-23 H GLUCOSE (test code = 2245817535) 157 mg/dL 70-110 H CREATININE (test code = 8526289416) 1.53 mg/dL 0.6-1.25 H TOTAL BILI (test code = 4979940157) 0.4 mg/dL 0.1-1.1 CALCIUM (test code = 1674322502) 9.5 mg/dL 8.6-10.6 T PROTEIN (test code = 6134813186) 8.3 g/dL 6.3-8.2 H ALBUMIN (test code = 6498046862) 4.7 g/dL 3.5-5 ALK PHOS (test code = 4227789709) 74 U/L 34-122 ALTv (test code = 1742-6) 29 U/L 5-50 AST(SGOT) (test code = 9988540841) 28 U/L 13-40 eGFR Calculation (Non-) (test code = 1071204376) mL/min/1.73m2 eGFR Calculation () (test code = 6410153534) mL/min/1.73m2 MARIA LUZ (test code = MARIA [...] imaging tests). Lab Interpretation (test code = 25599-7) Abnormal [facility] CenterLIPASE, [id number] 12:17:00* Test Item Value Reference Range Interpretation Comme nts LIPASE (test code = 5315081610) 102 U/L 0-220 Lab Interpretation (test cod e = 59941-5) Normal [facility] CenterBASI METABOLIC PANEL (NA, K, CL, CO2, GLUCOSE, BUN, CREATININE, CA)2020-04-09 11:06:00* Test Item Value Reference Range Interpretation Comme nts NA (test code = 0631726381) 139 mmol/L 135-145 K (test code = 8621472731) 4.1 mmol/L 3.5-5 CL (test code = 5149870954) 111 mmol/L 98-108 H CO2 TOTAL (test code = 3707335004) 24 mmol/L 23-31 AGAP (test code = 8376040504) 2-16 BUN (test code = 8951855571) 14 mg/dL 7-23 GLUCOSE (test code = 4644373564) 98 mg/dL 70-110 CREATININE (test code = 8988018751) 0.90 mg/dL 0.6-1.25 CALCIUM (test code = 5732262096) 8.5 mg/dL 8.6-10.6 L eGFR Calculation (Non-) (test code = 8182693632) mL/min/1.73m2 eGFR Calculation () (test code = 1856608230) mL/min/1.73m2 MARIA LUZ (test code = MARIA [...] imaging tests). Lab Interpretation (test code = 68247-4) Abnormal [facility] WITH JPOWWLBWLCZK8645-41-37 10:49:00* Test Item Value Reference Range Interpretation Comme nts WBC (test code = 6690-2) See_Comment H [Automated [employer]] The system which generated this result transmitted reference range: 4.20 - 10.70 10*3/?L. The reference range was not used to interpret this result as normal/abnormal. RBC (test code = 789-8) See_Comment L [Automated [employer]] The system which generated this result transmitted [...] 34.6 g/dL 31.2-35 RDW-SD (test code = 38885-1) 47.0 fL 38.5-51.6 RDW-CV (test code = 788-0) 13.7 % 12.1-15.4 PLT (test code = 777-3) See_Comment L [Automated messa ge] The system which generated this result transmitted reference range: 150 - 328 10*3/?L. The reference range was not used to interpret this result as normal/abnormal. MPV (test code = 46688-3) 12.2 fL 9.8-13 NRBC/100 WBC (test code = 3098488352) See_Comment [Automated [employer]] The system which generated this result transmitted reference range: 0.0 - 10.0 /100 WBCs. The reference range was not used to interpret this result as normal/abnormal. NRBC x10^3 (test code = 6169379519) <0.01 See_Comment [Automated messa ge] The system which generated this result transmitted reference range: 10*3/?L. The reference range was not used to interpret this result as normal/abnormal. GRAN MAT (NEUT) % (test code = 770-8) 61.9 % IMM GRAN % (test code = 3943958496) 0.40 % LYMPH % (test code = 736-9) 30.3 % MONO % (test code = 5905-5) 6.9 % EOS % (test code = 713-8) 0.2 % BASO % (test code = 706-2) 0.3 % GRAN MAT x10^3(ANC) (test code = 1803253372) 7.44 10*3/uL 1.99-6.95 H IMM GRAN x10^3 (test code = 0079700641) 0.05 10*3/uL 0-0.06 LYMPH x10^3 (test code = 731-0) 3.64 10*3/uL 1.09-3.23 H MONO x10^3 (test code = 742-7) 0.83 10*3/uL 0.36-1.02 EOS x10^3 (test code = 711-2) <0.03 0.06-0.53 L BASO x10^3 (test code = 704-7) 0.04 10*3/uL 0.01-0.09 Lab Interpretation (test code = 15621-5) Abnormal [facility] CenterCREATINE [id number] 10:38:00* Test Item Value Reference Range Interpretation Comme nts CK (test code = 2895973257) 569 U/L 33-194 H Lab Interpretation (test cod e = 39673-8) [facility] (NA, K, CL, CO2, GLUCOSE, BUN, CREATININE, CA)2020-04-08 11:23:00* Test Item Value Reference Range Interpretation Comme nts NA (test code = 3015572037) 136 mmol/L 135-145 K (test code = 7050763302) 5.2 mmol/L 3.5-5 H CL (test code = 7355330486) 107 mmol/L 98-108 CO2 TOTAL (test code = 6413895798) 22 mmol/L 23-31 L AGAP (test code = 8125596636) 2-16 BUN (test code = 5332438782) 24 mg/dL 7-23 H GLUCOSE (test code = 6182226508) 132 mg/dL 70-110 H CREATININE (test code = 9957524856) 1.30 mg/dL 0.6-1.25 H CALCIUM (test code = 9356327193) 8.8 mg/dL 8.6-10.6 eGFR Calculation (Non-) (test code = 9737715147) mL/min/1.73m2 eGFR Calculation () (test code = 3112876759) mL/min/1.73m2 MARIA LUZ (test code = MARIA [...] imaging tests). Lab Interpretation (test code = 01133-0) [facility] NOW RAPID TESTING)2020-04-08 05:54:00* Test Item Value Reference Range Interpretation Comme nts SARS-CoV-2 Rapid ID NOW (test code = 26318-5) Not Detected Not Detected MARIA LUZ (test code = MARIA LUZ) ID NOW COVID-19 As say is an isothermal nucleic acid amplification test intended for the qualitative detection of nucleic acid from SARS-CoV-2 viral RNA in nasopharyngeal (HEALTH EDUCATION AIDE) specimens. It is used under Emergency Use [...] clinically indicated. Lab Interpretation (test code = 40817-9) Normal [facility] V1656-39-01 05:01:00* Test Item Value Reference Range Interpretation Comme nts TROPONIN I (test code = 0049318594) <0.012 See_Comment [Automated message] The system which [...] biotin. ? Lab Interpretation (test code = 77633-7) Normal [facility] H0977-72-69 04:38:00* Test Item Value Reference Range Interpretation Comme nts TROPONIN I (test code = 4887298260) <0.012 See_Comment [Automated message] The system which [...] biotin. ? Lab Interpretation (test code = 74095-1) Normal [facility] (NA, K, CL, CO2, GLUCOSE, BUN, CREATININE, CA)2020-04-08 04:28:00* Test Item Value Reference Range Interpretation Comme nts NA (test code = 5097429010) 136 mmol/L 135-145 K (test code = 3808529563) 4.3 mmol/L 3.5-5 CL (test code = 0176815679) 97 mmol/L 98-108 L CO2 TOTAL (test code = 4092423532) 22 mmol/L 23-31 L AGAP (test code = 6061597961) 2-16 H BUN (test code = 0021752053) 31 mg/dL 7-23 H GLUCOSE (test code = 6837521100) 163 mg/dL 70-110 H CREATININE (test code = 2250715686) 2.80 mg/dL 0.6-1.25 H CALCIUM (test code = 9726105949) 10.9 mg/dL 8.6-10.6 H eGFR Calculation (Non-) (test code = 6729897099) mL/min/1.73m2 eGFR Calculation () (test code = 3212977476) mL/min/1.73m2 MARIA LUZ (test code = MARIA [...] imaging tests). Lab Interpretation (test code = 75093-3) Abnormal [facility] (ALB, T.PRO, BILI T, BU/BC, ALT, AST, ALK PHOS)2020-04-08 04:28:00* Test Item Value Reference Range Interpretation Comme nts TOTAL BILI (test code = 2075153132) 0.6 mg/dL 0.1-1.1 BILI UNCON (test code = 2126514934) 0.6 mg/dL 0.1-1.1 BILI CONJ (test code = 5960225895) 0.0 mg/dL 0-0.3 T PROTEIN (test code = 1324796723) 10.4 g/dL 6.3-8.2 H ALBUMIN (test code = 7904082626) 5.8 g/dL 3.5-5 H ALK PHOS (test code = 0311244940) 104 U/L 34-122 ALTv (test code = 1742-6) 35 U/L 5-50 AST(SGOT) (test code = 1440604813) 41 U/L 13-40 H Lab Interpretation (test cod e = 62527-9) Abnormal [facility] CenterLipase Kmgmp9311-21-25 04:28:00* Test Item Value Reference Range Interpretation Comme nts LIPASE (test code = 4791628620) 22 U/L 0-220 Lab Interpretation (test cod e = 58134-2) Normal [facility] CenterCREATINE HLFSFX0634-82-40 04:27:00* Test Item Value Reference Range Interpretation Comme nts CK (test code = 8421381086) 440 U/L 33-194 H Lab Interpretation (test cod e = 78957-6) Abnormal [facility] CenterCBC WITH JFMKZJEQEXGB0899-88-34 04:16:00* Test Item Value Reference Range Interpretation [...] g/dL 31.2-35 H RDW-SD (test code = 76458-6) 44.6 fL 38.5-51.6 RDW-CV (test code = 788-0) 13.4 % 12.1-15.4 PLT (test code = 777-3) See_Comment [Automated message] The system which generated this result transmitted reference range: 150 - 328 10*3/?L. The reference range was not used to interpret this result as normal/abnormal. MPV (test code = 74843-2) 12.7 fL 9.8-13 NRBC/100 WBC (test code = 2770178689) See_Comment [Automated message] The system which generated this result transmitted reference range: 0.0 - 10.0 /100 WBCs. The reference range was not used to interpret this result as normal/abnormal. NRBC x10^3 (test code = 1821875622) <0.01 See_Comment [Automated message] The system which generated this result transmitted reference range: 10*3/?L. The reference range was not used to interpret this result as normal/abnormal. GRAN MAT (NEUT) % (test code = 770-8) 81.0 % IMM GRAN % (test code = 9648376961) 0.80 % LYMPH % (test code = 736-9) 14.8 % MONO % (test code = 5905-5) 2.9 % EOS % (test code = 713-8) 0.1 % BASO % (test code = 706-2) 0.4 % GRAN MAT x10^3(ANC) (test code = 2346992855) 12.79 10*3/uL 1.99-6.95 H IMM GRAN x10^3 (test code = 0975773266) 0.12 10*3/uL 0-0.06 H LYMPH x10^3 (test code = 731-0) 2.34 10*3/uL 1.09-3.23 MONO x10^3 (test code = 742-7) 0.46 10*3/uL 0.36-1.02 EOS x10^3 (test code = 711-2) <0.03 0.06-0.53 L BASO x10^3 (test code = 704-7) 0.06 10*3/uL 0.01-0.09 Lab Interpretation (test code = 37855-9) Abnormal [facility] - DRUG SCREEN CXIYIW4403-65-44 02:25:00* Test Item Value Reference Range Interpretation Comme nts BENZO U (test code = 7465728652) Negative Negative COMPA U (test code = 1836699965) Negative Negative AMPHET (test code = 0792366414) Negative Negative THC (test code = 8543975915) Negative Negative METHADONE (test code = 8628977628) Negative Negative Meth U (test code = 0135880047) Presumptive Positive Negative A OPIATES (test code = 4975616361) Negative Negative Cocaine Metabolite (test code = 7281958205) Presumptive Positive Negative A PROPOXY (test code = 7782465895) Negative Negative Tric U (test code = 7255272807) Negative Negative PCP (test code = 4629731054) Negative Negative OXYCOD (test code = 6112543384) Negative Negative MARIA LUZ (test code = [...] legal testing). Lab Interpretation (test code = 55303-7) Abnormal [facility] CenterUrinalysis2020-07-02 02:19:00* Test Item Value Reference Range Interpretation Comme nts APPEARANCE (test code = 8031932528) Cloudy Clear A COLOR (test code = 9109259166) Reyna Yellow A PH (test code = 8094210351) 4.8-8.0 SP GRAVITY (test code = 4119216468) 1.003-1.030 GLU U QUAL (test code = 6282354320) Normal Normal BLOOD (test code = 2637796591) Negative Negative INTERFERENCE FRO M ASCORBIC ACID MAY CAUSE FALSE NEGATIVE RESULT KETONES (test code = 8396133910) 5 mg/dL Negative A PROTEIN (test code = 2887-8) 100 mg/dL Negative A UROBILIN (test code = 9210877803) 2.0 mg/dL Normal A BILIRUBIN (test code = 0234237847) Negative Negative NITRITE (test code = 7143678310) Negative Negative [place] (test code = 9383463908) Negative Negative RBC/HPF (test code = 7581903070) <1 See_Comment [Automated messa ge] The system which generated this result transmitted reference range: 0 - 3 HPF. The reference range was not used to interpret this result as normal/abnormal. WBC/HPF (test code = 6244795719) See_Comment [Automated messa ge] The system which generated this result transmitted reference range: 0 - 5 HPF. The reference range was not used to interpret this result as normal/abnormal. BACTERIA (test code = 3785904606) Few Negative A MUCOUS (test code = 1111986345) Moderate Negative LPF A SQ EPITH (test code = 6626220518) HPF Lab Interpretation (test code = 51415-2) Abnormal [facility] Notes Date/Time Note Provider Source 2023-10-15 15:30:18 xhUOHP+4wA4I9/g4B5SsRkifyQgYhpIGE7yWM1ON X diRBtoqnDLMy27oJm+iJEhY4912-98-39Q15:30:1 8 Patient feeling better at this time. Take meds as prescribed. Follow up with pcp. Return if worsening condition. 98467-0Hbpvffoie department RgthEG0901-28-06G25:30:56Emergency department NoteTXT1.2.840.694916.1.13.104.2.7.2.7278 79|[id number] for patient irwa24154-0SqjzOHZVRNMZKWGJzwovhbsq C-CDA narrative thpd420504429Wdunwthmable Lorenz RNUTMBUTMB - [address] ZhoiZyfsimmpzTmpovvvlyEPGK8916556214BVEBY MHYABCQSWUCUXTGHU8194-35-36Q89:30:561.2.8 40.195630.1.72.3.15|1.2.840.593248.1.13.1 04.2.7.2.727879_[id number] Robert Lorenz RN [facility] 2023-10-15 13:10:01 Y+gp6pETkOaJkUTiBbJK5DP+8svdqxfEAXtF3pJI z jJb/FvJQpAnIuaLSLmT0FWG6288-16-35E06:10:[address] [address]-5Cwtfbdvwz department UblrHP0061-20-15G19:10:10Emergen department NoteTXT1.2.840.622222.1.13.104.2.7.2.7278 79|[id number] for patient yxey24652-3LwybOBCACIPJECHWmvqwhujy C-CDA narrative text[address] FyzjDljxppoikBlxnbafdxMEZE6847173370QWOIR AUAPCYFASKDSKUGBJ4395-14-22J79:10:101.2.8 40.077678.1.72.3.15|1.2.840.875584.1.13.1 04.2.7.2.727879_[id number] [facility] 2023-10-15 12:03:24 Whs/MWR+jPT8Pqzwk9O+QA1bzOtTXSO+7TGYT9rf t Dg5O7+w5mRfo5S4RKBe6yc63129-49-93L44:03:2 4 Patient arrived via ems c/o of left chest pressure feeling someone sitting on his chest nonradiating pain and complaining of shortness of breath. Patient was seen here last night for the same reasons. Diagnosed with the flu several days ago and has not taken any medications prescribed. 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 give 1 nitro, 325 mg aspirin, 20 right acHx: HTN 99576-6Nbuktrjno department Triage crcbKD2661-34-16W74:06:09[facility] Triage noteTXT1.2.840.357403.1.13.104.2.7.2.7278 79|[id number] for patient cunn78742-3Uyuhdefti department NoteLNNARRATIVEFormatted C-CDA narrative ktrn368499801Dyyeregq M Felix RN[address] PhknUpilfqkpkBdvhhgsmgJVVI0299163966PPKQA CIOEBLYVGQIPDHXOF0999-79-14C23:06:091.2.8 40.631677.1.72.3.15|1.2.840.077979.1.13.1 04.2.7.2.727879_[id number] Chichi Marcano RN [facility] 2023-10-15 12:01:00 e6+r9vpoH33kgwSN+WDG/DDNCxVgaytIGCyIDMFb s zNiSt2GJTzKgo4gvYSUC3T43965-01-35L16:01:0 0Associated Order(s): EKG-12 Lead ROUTINE ONCEPre-Procedure Diagnose(s): Chest pain, unspecified typePost-Procedure Diagnose(s): Chest pain, unspecified type [facility] Emergency Department NotePatient Name: Bruce OswaldDate of : 1980 43 year old maleTreatment Room: Room/bed info not foundMedical Record Number: [id number] Care Physician: PATIENT DOES NOT HAVE A PCPPatient Escorted by: Self [9]Mode of Arrival: EMS - [facility] ([place]) [43]EMS Treatment Prior to ED Arrival:Travel and [...] unable to get to the pharmacy to miner pick any medications. States he feels thirsty. No recent long travel ,no broken bones, no cancer, no personal or family history of blood clots. No unilateral leg pain or swellingHistory provided by: Patient and medical recordsLanguage cigarette making machine hopper feeder used: NoPast Medical History/Immunizations:History reviewed. 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 States he feels thirsty.Differential includes but not limited to hypertension, ACS, musculoskeletal pain, cocaine chest pain, dehydration, pulmonary pathology less likely with normal chest x-ray last night and no longer with cough and normal oxygenation.Plan is symptom control, repeat labs, hydration monitor and reevaluation. Patient understands and agrees with plan [CD]ED Course User Index[CD] Fabian Lawrence, MDDiagnosis/Impression as of 10/15/23 1400Chest pain, unspecified typeNauseaDehydrationInfluenza AHypertension, unspecified typeHypokalemiaProcedures:EKG-12 Lead ROUTINE ONCEDate/Time: 10/15/2023 1:22 PMPerformed by: Fabian Lawrence MDAuthorized by: Fabian Lawrence MDECG interpreted by ED Physician in the absence of a glassware defect repairer: yesPrevious ECG:Previous ECG: Compared to currentComparison ECG [...] on fileFollow-up:Electronically signed by:Fabian Lawrence MD10/15/23 1401 29587-0Fiahetpjz Emergency department LhmfTP2642-42-11G59:01:31Physician Emergency department NoteTXT1.2.840.999636.1.13.104.2.7.2.7278 79|[id number] for patient oczc93168-0Ivdvoevvn department NoteLNNARRATIVEFormatted C-CDA narrative text[address] QwgzGeaurwcyuStmeubpbiLNWR5642112071EMSUL DUMXGLBWPOVXNJAAL6413-29-06A80:01:311.2.8 40.706251.1.72.3.15|1.2.840.813497.1.13.1 04.2.7.2.727879_[id number] [facility] 2023-10-15 00:33:35 zXNT7dNXz7WXq7HxEAfWeZka/QvjoWv/E7BnzuAa s XfYJkLtHghoUL1JBqq8J8qC5530-32-55D71:33:3 5 PT D/C home. GCS15, VS stable. Given D/C paperwork. Pt ambulatory at time of discharge. Pt educated on med usage, follow up care, s/s worsening condition, need for hydration. Pt verbalized understanding.Pt ambulated from ED in NAD. 05841-4Sxfnoicts department WbuaXH5204-18-08I76:33:48Emergency department NoteTXT1.2.840.097140.1.13.104.2.7.2.7278 79|[id number] for patient xafw37903-1ZuaxIHPQZTFSZMCYiwzlzvgn C-CDA narrative xwya420243489Echr E Linkes RN[address] UvtxSpwhxipclAjijlqazuFAYN3071000037IYKFA BECQKROBJFCVEFBIR1811-55-64G86:33:481.2.8 40.954336.1.72.3.15|1.2.840.773051.1.13.1 04.2.7.2.727879_[id number] Tasneem Daugherty RN [facility] 2023-10-14 20:17:52 dRGNtmEH23gQHABHuUTES/vq16YCAYlHwe3mGwLw o GwTherinwD0mNt2EjyrMQtv7838-28-23C73:17:5 2 Vomiting for 2-3 day, "can't keep [...] was doing "powder" cocaine 3 days ago. 61018-7Vpeqhuqdy department Triage qblaYP7218-22-86O17:31:23[facility] Triage noteTXT1.2.840.051574.1.13.104.2.7.2.7278 79|[id number] for patient ffjs62949-5Ligvghrml department NoteLNNARRATIVEFormatted C-CDA narrative qyca369915328ArtrhYessi Johnston RN[address] StreetLkfnEdptlhyrkJgftvqpxlOKBJ6600023432GVXQD ZYJRCWVKWMJEBFCGI0988-86-44C06:31:231.2.8 40.934409.1.72.3.15|1.2.840.624423.1.13.1 04.2.7.2.727879_[id number] Yessi Johnston RN [facility] 2023-10-14 20:13:00 kVr0OYi/HAhqhqME7JekyhctITBEwXuNxMdDYCOM C 5yyGaJoGrC8sZaI76ESXmR+2663-75-54V98:13:0 0 [facility] Emergency Department NotePatient Name: Bruce OswaldDate of : 1980 43 year old maleTreatment Room: AK5/[address] Record Number: [id number] Care Physician: PATIENT DOES NOT HAVE A PCPPatient Escorted by: Self [9]Mode of Arrival: EMS - [facility] ([place]) [43]EMS Treatment Prior to ED Arrival:Travel and [...] by: Medical records, patient and EMS personnelLanguage cigarette making machine hopper feeder used: NoChest PainPain location: L chest and [...] SINGLE VIEWCLINICAL HISTORY: Chest pain.ORDERING PHYSICIAN: MILAGROS MORALESMATECHNIQUE: Frontal view of chestCOMPARISON: 02/08/2023FINDINGS:There is a normal cardiomediastinal silhouette. The pulmonary vascularitydoes not appear congested. The lungs appear clear demonstrating no focalpulmonary consolidation, pleural effusion, or pneumothorax. No acuteosseous process is observed.IMPRESSIONNo radiographic evidence for an acute or active process of the chest.RL: 3708AFC: 02901LY: Y Lab Results:Lab ResultsCBC WITH DIFF - [...] <0.03 0.01 - 0.09 10*3/uLCOMP. METABOLIC PANEL (47815) - AbnormalNA 133 (*) 135 - 145 [...] U/LAST(SGOT) 34 13 - 40 U/LeGFR 102.5 mL/min/1.19o6LTHHIWYS I - NormalTROPONIN I 0.011 <=0.034 ng/mLLIPASE - NormalLIPASE 85 0 - 220 U/LTROPONIN I - NormalTROPONIN I 0.013 <=0.034 ng/mLOrders and Treatments:Orders Placed This EncounterProceduresXR CHEST 1 VWTroponin ILipaseCbc with DiffComp. Metabolic Panel (05755)Troponin IOrders Placed This EncounterMedicationsondansetron (ZOFRAN (PF)) injection 4 mghydralAZINE (APRESOLINE) injection 10 mghydralAZINE (APRESOLINE) injection 10 mghydrALAZINE 10 mg tabletFirst Provider Eval:ED EventsDate/Time Event User Htztvrdt34/07/242016 Medical Screening Begins MILAGROS COURTNEY MD --10/14/232016 First Provider Evaluation MILAGROS COURTNEY MD --ED COURSEDiagnosis/Impression as of 10/15/23 0039Chest pain, unspecified typeNoncompliance with medication regimenHypertension, unspecified typeProcedures:ProceduresMDM:Medical Decision MakingRoscolandon Oswald is a 43 year old male [...] fileFollow-up:Contact information for follow-upRamses Wiseman MDSpecialty: IM-CARDIOVASCULAR DISEASEAL[facility]IST[facility] AND EFHOOTF[address] [place] [address]Dxkur: [phone] signed by:Milagros Courtney MD10/15/23 0039 70845-8Vplcdwhol Emergency department DbsfWX2480-59-27S43:39:28Physician Emergency department NoteTXT1.2.840.777873.1.13.104.2.7.2.7278 79|[id number] for patient fbzi01077-9Oarkitzaq department NoteLNNARRATIVEFormatted C-CDA narrative textAD[facility] [place] - [address] Bass [id number] CNRJFRXIWLNJDPHQI2544-48-90K53:39:281.2.8 40.679051.1.72.3.15|1.2.840.342477.1.13.1 04.2.7.2.727879_[id number] [facility] 2023-06-16 14:39:02 f3caP00G1amQXR0394TmvIxmR1vsKo/OFYEMKqe5 j g5J2NtHQ9h2XSHL+x+6/exb8258-62-64Z43:39:0 2 Pt given printed and verbal discharge [...] with steady gait, in no apparent distress. 97731-2Chwnitajr department BsqiMS5427-79-05E73:40:03Emergency department NoteTXT1.2.840.976407.1.13.104.2.7.2.7278 79|[id number] for patient ujly76239-5MzxdSG829211809Zujfbg M Herrera RN[address] XddzTuayaladzNolvijxsfFTKK8918012711FVKVY VIBEYDTNUDHCITBCQ0430-04-29U41:40:031.2.8 40.715160.1.72.3.15|1.2.840.957902.1.13.1 04.2.7.2.727879_[id number] Wilda Lomax RN [facility] 2023-06-16 14:09:01 kPvZGULfmGwBZTcBCgf7/lzLWxWBZalgQyrDfTKL m 9aq1iesW7CgoJDBIasCmfO97195-94-37N02:09:0 1 Patient given water, tolerated well. [address]6448-1Atfqzhvsx[address] [place] [address] VgazMJ2196-32-84K65:09:18[facility] department NoteTXT1.2.840.518224.1.13.104.2.7.2.7278 79|[id number] for patient zlpi89778-4YmxmHOOEGPLQVT[address] [id number] WFRLTRGUDOOKHHXLF8141-21-33Q98:09:181.2.8 40.521467.1.72.3.15|1.2.840.137743.1.13.1 04.2.7.2.727879_[id number] [facility] 2023-06-16 11:03:50 lkGNGhRRkJncJcsgHJVEmLDIe9J5Y02nZD5rLgu4 E 5jVtfWEnHFnn+J0ytZ9M8Yr0220-93-30Z49:03:5 0 Report received from LULY Robledo [address]-8Knhmibxco[address] ObinNI4652-64-22C40:04:30[facility] NoteTXT1.2.840.008636.1.13.104.2.7.2.7278 79|[id number] for patient faui74047-0MvamCMOWGDPXIW07 [address] [id number] UAMZAOCRWJWDCXGGH0755-48-41J52:04:301.2.8 40.681585.1.72.3.15|1.2.840.663150.1.13.1 04.2.7.2.727879_[id number] [facility] 2023-06-16 07:43:30 oCspXIyeWa2rEbjrwwJS26Gc5J5gyKCIyWOhFQ3y s ET2THwnWEVXi7KdJmuEckuq0907-70-85S52:43:3 0 Pt c/o generalized abdominal pain accompanied by nausea that started 2 days ago. Was seen at [facility] yesterday for same complaint, given prescriptions but patient states that he did not take them. Reports no relief in symptoms. Received 4mg Zofran 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 by EMS. 54564-6Obllgsemp department Triage hkmtPI6176-04-20U66:45:18Emerv[facility] hospitalcy department Triage noteTXT1.2.840.414459.1.13.104.2.7.2.7278 79|[id number] for patient zsvj59331-7Udiujfqqw department UgdsTM100599019Ossiw N Dewoody RNUT[address] DymqGfyfawtlyYdrcywktiAGJU4804023905IMEKH ACSPGOTYSBTHDSVHH7655-40-25Q69:45:181.2.8 40.621439.1.72.3.15|1.2.840.453905.1.13.1 04.2.7.2.727879_[id number] Madeleine Mullen RN [facility] 2023-06-14 21:17:00 CQ8780899209GKOlcWb+tRl0ZHGKiK1CfiRHxkyV B qET+gpQl+KDoTXUVJ7MzH6oLRBYY66xK3yo6986-1 1:17:00 [facility] ([facility])EMERGENCY PROVIDER REPORTREPORT#:[id number] REPORT STATUS: SignedDATE:06/14/23 TIME:2116 PATIENT: BRUCE OSWALD UNIT #: [id number]#: [id number] ROOM/BED:: 81 AGE: 43 SEX: M PCP [...] Present ---- PERC: Age >= 50HR >= 765VcH6 < 95%Unilateral Leg SwellingHemoptysisRecent Trauma/SurgeryPrior PE/DVTHormone Use [...] Early Discharge in Acute Chest Pain from [facility] on 06/14/2023 All calculations should be rechecked [...] by Dr Jcarlos Mora MD Time at Intrepretation:2347 Rhythm: Normal SinusSegments: Normal appeareanceRate: normalQRS: normalQTC: [...] )( Discharged to Home Yes )( Time 004 )( Date 06/15/23 Discharge/Care Plan(Auto) PrescriptionsCurrent Visit [...] the earliest appointment for: Dr Jet Ferrer[address] [place], [place] [address]Gibsy: [email or web address] Return within 24-36 hrs if you have worsening abdominal pain, vomiting. at 0048 RPT #: [id number] OF REPORTEDEmergency department cjwdys1795-99-47I07:17:00L.TJTY15468562-8 253AVAvailable for patient nfdfXDHNGIDHSSLVJC5900-31-18Z09:48:47 HCAPM 2023-05-01 06:10:19 5aIUP56KOCwlGRRdiU7Sfhr5x8iqNv0oAUkUNFcE x pSWja7bqyck56UCM6wE5iGG3110-67-32N79:10:1 9 Pt given printed and verbal discharge [...] w/d, pt leaving in no apparent distress, 46646-9Sbrvdobvm department ErufUP0972-16-08D02:13:59[facility] NoteTXT1.2.840.811119.1.13.104.2.7.2.7278 79|[id number] for patient [address] YsgjVsjxxnoreUmqvfmkziNKCM8380201398EFIAG ALDSVFOZQNPMYVKUF2267-36-29U73:13:591.2.8 40.803588.1.72.3.15|1.2.840.006995.1.13.1 04.2.7.2.727879_[id number] [facility] 2023-05-01 03:46:44 yxtz3OT4XlzaKSf2GtIXcqOkjeTiNrcvSdx0SexP 1 CNMlCny7Mzo+MBC6M9MuRCU5106-79-58M42:46:4 4 CC: Pt reports toothache x 2 [...] ext without difficulty, amb with steady gait 76171-0Srhqmjsiv department Triage tfpaFG6913-89-58W32:48:45[facility] Triage noteTXT1.2.840.140354.1.13.104.2.7.2.7278 79|[id number] for patient [address] Ga[id number] JRIVBIIBBSAKJFNIS1662-08-83V78:48:451.2.8 40.274128.1.72.3.15|1.2.840.527509.1.13.1 04.2.7.2.727879_[id number] [facility] 2023-05-01 03:43:00 qW0sv97QMegMzy5/fGa5vnnOBBHfOFksvIff8VzY d CaWFvfu8qQnJDOapapOyG5r8198-46-20I90:43:0 0 [facility] Emergency Department NotePatient Name: Bruce OswaldDate of : 1980 42 year old maleTreatment Room: [place] [address]Medical Record Number: [id number] Care Physician: PATIENT DOES NOT HAVE A PCPPatient Escorted by: Self [9]Mode of Arrival: Personal means [1]EMS Treatment Prior to ED Arrival: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 treatment: None Travel and Exposure Screening:SymptomsDoes patient [...] mild swelling to face,History provided by: PatientLanguage cigarette making machine hopper feeder used: No Dental ProblemLocation: Upper and lowerLower [...] of 05/01/23 0558 Toothache Procedures: ProceduresMDM:Medical Decision MakingRosmita Oswald is a 42 year old malew [...] Milagros Courtney MD05/01/2358 Milagros Courtney MD05/01/23 0558 91464-8Ntqgozuuf Emergency department RfavBJ8351-13-78L37:58:50Physician Emergency department NoteTXT1.2.840.432645.1.13.104.2.7.2.7278 79|[id number] for patient care[address] Ii[id number] IDSFORYMZVZIFVFMY4889-47-09M43:58:501.2.8 40.462939.1.72.3.15|1.2.840.706661.1.13.1 04.2.7.2.727879_[id number] [facility]
[2024-02-17] MEDS ORDERED: ASPIRIN 81 MG CHEWABLE TABLET ONE (22:12)
[2024-02-17] MEDS ORDERED: NA CHLORIDE 0.9% 1,000 ML ONE (22:13)
[2024-02-17] MEDS ORDERED: DIAZEPAM 10 MG/2 ML INJ SYRINGE ONE (22:35)
[2024-02-17] MEDS ORDERED: METOCLOPRAMIDE 10 MG/2mL INJ ONE (22:35)
[2024-02-17] MEDS ORDERED: HYDRALAZINE HCL 20 MG/ML VIAL ONE (22:35)
[2024-02-17 22:41] LABS: Absolute Eosinophils 0.1 K/uL (0-0.5); Absolute Lymphocytes (CBC) 1.2 K/uL (0.7-4.9); Absolute Monocytes 0.2 K/uL (0.1-1.3); Absolute Neutrophil 10.5 K/uL (1.8-8.0); Basophils % 0.4 % (0-1.3); Eosinophils % 0.5 % (0-4.4); Hematocrit 44.2 % (39.6-49.0); Hemoglobin 14.8 g/dL (13.6-17.9); Lymphocytes % 10.2 % (15.3-44.8); MCH 31.9 pg (27.0-35.0); MCHC 33.5 g/dL (32.0-36.0); MCV 95.2 fL (80-100); MPV 8.2 fL (7.6-11.3); Monocytes % 1.3 % (3.3-12.3); Neutrophils % 87.6 % (41.7-73.7); Nucleated Red Blood Cells % 0.1 % (0-0); Platelets 143 thou/uL (152-406); RBC Red Blood Cell Count 4.65 M/uL (4.33-5.43); Red Cell Distribution Width 14.5 % (12.1-15.2)
[2024-02-17 22:47] LABS: PT Prothrombin Time 11.1 SECONDS (9.5-12.5); Protime INR 1.01
[2024-02-17 22:59] LABS: Albumin 3.7 g/dL (3.4-5.0); Anion Gap 9.7 mEq/L (5.0-15.0); Bilirubin Direct 0.2 mg/dL (0-0.2); Bilirubin Indirect, Calculated 0.2 mg/dL (0.2-0.8); Bilirubin Total 0.4 mg/dL (0.2-1.0); Globulin 3.6 g/dL (2.3-3.5); Magnesium 1.8 mg/dL (1.6-2.4); Potassium 3.7 mEq/L (3.5-5.1); Protein, Total 7.3 g/dL (6.4-8.2); Troponin High Sensitivity 11.4 pg/mL (<58.9)
[2024-02-18] MEDS ORDERED: ACETAMINOPHEN 500 MG TAB ONE (01:46)
[2024-02-18 02:32] LABS: Specific Gravity 1.025 (1.005-1.030); Sqamous Epithelial None Seen /HPF (None Seen); Urine Bacteria None Seen /HPF (<20); Urine Bilirubin NEGATIVE (Negative); Urine Blood Negative (Negative); Urine Clarity Clear (Clear); Urine Color Light-Yellow (Yellow); Urine Culture Reflex Order NOT NEEDED; Urine Glucose TRACE (Negative); Urine Ketones NEGATIVE (Negative); Urine Microscopic Reflex YN ORDER UMIC; Urine Mucus Slight /HPF (None Seen); Urine Nitrite NEGATIVE (Negative); Urine Protein TRACE (Negative); Urine Urobilinogen Normal (Normal); Urine WBC <5 /HPF (<5); Urine pH 6.5 (5.0-7.0)
[2024-02-18 02:40] LABS: Barbiturates NEGATIVE (NEGATIVE); Benzodiazepines POSITIVE (NEGATIVE); Cocaine POSITIVE (NEGATIVE); METHAMPHETAM NEGATIVE (NEGATIVE); Methadone NEGATIVE (NEGATIVE); Opiates NEGATIVE (NEGATIVE); Phencyclidine NEGATIVE (NEGATIVE); THC Cannibis NEGATIVE (NEGATIVE)
--- NOTE | 2024-02-18 02:44 | ER ---
Nurse's Notes [facility] Name: Bruce Oswald Age: 43 yrs Sex: Male : 1980 Arrival Date: 02/17/2024 Time: 21:36 Bed 18 Private MD: Diagnosis: Essential (primary) hypertension;Cocaine abuse;Chest pain, unspecified Presentation: 02/16 21:52 Chief complaint: EMS states: reports chest pain that started suddenly. pain 06/17. ha1 elevated blood pressure BP 189/102. 21:52 Coronavirus screen: Vaccine status: Patient reports being unvaccinated. Ebola Screen: ha1 No symptoms or risks identified at this time. Initial Sepsis Screen: Does the patient meet any 2 criteria? No. Patient's initial sepsis screen is negative. Does the patient have a suspected source of infection? No. Patient's initial sepsis screen is negative. Risk Assessment: Do you want to hurt yourself or someone else? Patient reports no desire to harm self or others. Onset of symptoms was February 17, 2024. 21:52 Method Of Arrival: EMS: [facility] ha1 21:52 Acuity: ZENON 2 ha1 Triage Assessment: 21:52 General: Appears uncomfortable, Behavior is cooperative. Pain: Complains of pain in ha1 chest Pain does not radiate. Pain currently is 9 out of 10 on a pain scale. Quality of pain is described as burning, pressure. Neuro: Level of Consciousness is awake, alert, obeys commands, Oriented to person, place, time, situation. Cardiovascular: Capillary refill < 3 seconds Patient's skin is warm and dry. Cardiovascular: Heart tones S1 S2 present. Respiratory: Airway is patent Respiratory effort is even, unlabored, Respiratory pattern is regular, symmetrical. GI: Abdomen is flat, non-distended, Reports nausea, vomiting. : No signs and/or symptoms were reported regarding the genitourinary system. Musculoskeletal: Circulation, motion, and sensation intact. Range of motion: intact in all extremities. Historical: - Allergies: 21:56 NKDA; ha1 - PMHx: 21:56 Anxiety; Asthma; Back pain; Hypertension; ha1 - Immunization history:: Adult Immunizations not up to date. - Infectious Disease History:: Denies. - Social history:: Smoking status: Patient denies any tobacco usage or history of. - Family history:: not pertinent. Screenin:00 Abuse screen: Denies threats or abuse. Denies injuries from another. Nutritional ha1 screening: No deficits noted. Tuberculosis screening: No symptoms or risk factors identified. 22:00 [facility] ED Fall Risk Assessment (Adult) History of falling in the last 3 months, ha1 including since admission No falls in past 3 months (0 pts) Confusion or Disorientation No (0 pts) Intoxicated or Sedated No (0 pts) Impaired Gait No (0 pts) Mobility Assist Device Used No (0 pt) Altered Elimination No (0 pt) Score/Fall Risk Level 0 - 2 = Low Risk Oriented to surroundings, Maintained a safe environment, Educated pt \T\ family on fall prevention, incl call for assistance when getting out of bed, Hourly rounding (assess needs \T\ fall precautionary measures) done. Assessment: 21:52 Reassessment: see triage assessment. ha1 23:00 Reassessment: Patient and/or family updated on plan of care and expected duration. Pain ha1 level reassessed. Patient is alert, oriented x 3, equal unlabored respirations, skin warm/dry/pink. Patient states feeling better. Patient states symptoms have improved. 02/17 00:00 Reassessment: eyes closed. Respiratory: Airway is patent Respiratory effort is even, ha1 unlabored, Respiratory pattern is regular, symmetrical. 01:00 Reassessment: Patient and/or family updated on plan of care and expected duration. Pain ha1 level reassessed. Patient is alert, oriented x 3, equal unlabored respirations, skin warm/dry/pink. 02:00 Reassessment: Patient and/or family updated on plan of care and expected duration. Pain ha1 level reassessed. Patient is alert, oriented x 3, equal unlabored respirations, skin warm/dry/pink. 02:59 Reassessment: Patient and/or family updated on plan of care and expected duration. Pain ha1 level reassessed. Patient is alert, oriented x 3, equal unlabored respirations, skin warm/dry/pink. Patient states symptoms have improved. Vital Signs: 02/16 21:52 BP 173 / 107; Pulse 74; Resp 20 S; Temp 98.7(O); Pulse Ox 100% on R/A; Weight 74.84 kg; ha1 Height 5 ft. 9 in. ; 22:15 BP 185 / 108; Pulse 69; Resp 18 S; Pulse Ox 100% on R/A; ha1 22:45 BP 197 / 75; Pulse 81; Resp 18 S; Pulse Ox 100% on R/A; ha1 23:10 BP 180 / 97; Pulse 89; Resp 18 S; Pulse Ox 99% on R/A; ha1 02/17 00:00 BP 168 / 97; Pulse 92; Resp 17 S; Pulse Ox 100% on R/A; ha1 01:00 BP 183 / 96; Pulse 84; Resp 17 S; Temp 99.9(O); Pulse Ox 100% on R/A; ha1 02:00 BP 169 / 98; Pulse 93; Resp 16 S; Pulse Ox 99% on R/A; ha1 03:00 BP 160 / 81; Pulse 82; Resp 17 S; Temp 98.4(O); Pulse Ox 100% on R/A; ha1 02/16 21:52 Body Mass Index 24.37 (74.84 kg, 175.26 cm) ha1 Soren Coma Score: 03:17 Eye Response: spontaneous(4). Motor Response: obeys commands(6). Verbal Response: sp4 oriented(5). Total: 15. ED Course: 02/16 21:52 Patient arrived in ED. ha1 21:52 Patient has correct armband on for positive identification. Placed in gown. Bed in low ha1 position. Call light in reach. Side rails up X 1. 21:52 Arm band placed on right wrist. ha1 21:53 Nik Brambila MD is Attending Physician. sp4 21:53 Melissa Goode RN is Primary Nurse. ha1 21:56 Triage completed. ha1 22:00 No provider procedures requiring assistance completed. Inserted saline lock: 20 gauge ha1 in left antecubital area, using aseptic technique. Blood collected. 22:17 EKG done, by ED staff, reviewed by Nik Brambila MD. oe 22:36 Basic Metabolic Panel Sent. ha1 22:36 CBC with Diff Sent. ha1 22:36 LFT's Sent. ha1 22:36 Magnesium Sent. ha1 22:36 NT PRO-BNP Sent. ha1 22:36 PT-INR Sent. ha1 22:36 Troponin HS Sent. ha1 23:04 XRAY Chest (1 view) In Process Unspecified. EDMS 02/17 03:02 Provided Education on: blood pressure management . ha1 03:02 IV discontinued, intact, bleeding controlled, No redness/swelling at site. Pressure ha1 dressing applied. Administered Medications: 02/16 22:30 Drug: hydrALAZINE IVP 20 mg IVP once Route: IVP; Site: left antecubital; ha1 22:31 Drug: metoCLOPramide IVP 10 mg IVP once; over 1 to 2 minutes Route: IVP; Site: left ha1 antecubital; 23:13 Follow up: Response: No adverse reaction; Marked relief of symptoms ha1 22:32 Drug: NS 0.9% IV 1000 ml IV at 1 bolus Per protocol; 1000 mL bolus Route: IV; Rate: 1 ha1 bolus; Site: left antecubital; 02/17 00:00 Follow up: Response: No adverse reaction; IV Status: Completed infusion; IV Intake: ha1 1000ml 02/16 22:33 Drug: Aspirin PO Chewable Tablet 324 mg PO once; 81 mg tablets x 4 Route: PO; ha1 23:14 Follow up: Response: No adverse reaction ha1 22:33 Drug: Diazepam IVP 5 mg IVP once Route: IVP; Site: left antecubital; ha1 22:45 Follow up: Response: No adverse reaction; Marked relief of symptoms; Anxiety decreased; ha1 RASS: Alert and Calm (0) 22:45 Drug: hydrALAZINE IVP 20 mg IVP once Route: IVP; Site: left antecubital; ha1 23:13 Follow up: Response: No adverse reaction; Blood pressure is lowered ha1 02/17 01:50 Drug: Acetaminophen PO 1000 mg PO once Route: PO; ha1 02:59 Follow up: Response: No adverse reaction; Temperature is decreased ha1 02:50 Drug: Losartan PO 100 mg PO once Route: PO; ha1 03:05 Follow up: Response: No adverse reaction ha1 Medication: 02/16 22:00 VIS not applicable for this client. ha1 Intake: 02/17 00:00 IV: 1000ml; Total: 1000ml. ha1 Outcome: 02:43 Discharge ordered by MD. rubalcava 03:01 Discharged to home via wheelchair, ha1 03:01 Condition: stable 03:01 Discharge instructions given to patient, Instructed on discharge instructions, follow up and referral plans. medication usage, Demonstrated understanding of instructions, follow-up care, medications, Prescriptions given X 1, 03:05 Patient left the ED. ha1 Signatures: Dispatcher [employer] EDMS Nelson Gutierrez Heidy, RN RN ha1 Nik Brambila MD MD sp4 Corrections: (The following items were deleted from the chart) 02/16 23: 22:41 hydrALAZINE IVP 10 mg IVP in left antecubital ha1 ha1 22:43 hydrALAZINE IVP 10 mg IVP in left antecubital ha1 ha1 02/17 01:02/16 21:52 GI: Abdomen is flat, non-distended, ha1 ha1
--- NOTE | 2024-02-18 02:44 | EDPHYS ---
Physician Documentation [facility] Name: Bruce Oswald Age: 43 yrs Sex: Male : 1980 Arrival Date: 02/17/2024 Time: 21:36 Bed 18 Private MD: ED Physician Nik Brambila HPI: 02/17 02:31 This 43 yrs old Black Male presents to ER via EMS with complaints of Chest Pain. sp4 03:17 43-year-old male presents with EMS for acute onset chest discomfort associated with sp4 elevated blood pressure. Patient has history of cocaine abuse. . Historical: - Allergies: 02/16 21:56 NKDA; ha1 - PMHx: 21:56 Anxiety; Asthma; Back pain; Hypertension; ha1 - Immunization history:: Adult Immunizations not up to date. - Infectious Disease History:: Denies. - Social history:: Smoking status: Patient denies any tobacco usage or history of. - Family history:: not pertinent. ROS: 02/17 03:17 Constitutional: Negative for fever, chills, and weight loss, positive for chest pain sp4 All other systems are negative, Exam: 02:45 ECG was reviewed by the Attending Physician. The ED is an EKG at 2159, normal sinus sp4 rhythm with left ventricular hypertrophy. Sinus rhythm at the rate of 60 03:17 Constitutional: This is a well developed, well nourished patient who is awake, alert, sp4 and in no acute distress. Head/Face: Normocephalic, atraumatic. Eyes: Pupils equal round and reactive to light, extra-ocular motions intact. Lids and lashes normal. Conjunctiva and sclera are not injected. Cornea within normal limits. Periorbital areas with no swelling, redness, or edema. ENT: Nares patent. No nasal discharge, no septal abnormalities noted. Tympanic membranes are normal and external auditory canals are clear. Oropharynx with no redness, swelling, or masses, exudates, or evidence of obstruction, uvula midline. Mucous membranes moist. Neck: Trachea midline, no thyromegaly or masses palpated, and no cervical lymphadenopathy. Supple, full range of motion without nuchal rigidity, or vertebral point tenderness. Chest/axilla: Normal chest wall appearance and motion. Nontender with no deformity. No lesions are appreciated. Cardiovascular: Regular rate and rhythm with a normal S1 and S2. No gallops, murmurs, or rubs. Normal PMI, no JVD. No pulse deficits. Respiratory: Lungs have equal breath sounds bilaterally, clear to auscultation and percussion. No rales, rhonchi or wheezes noted. No increased work of breathing, no retractions or nasal flaring. Abdomen/GI: Soft, with normal bowel sounds. No distension or tympany. No guarding or rebound. No evidence of tenderness throughout. Back: No spinal tenderness. No costovertebral tenderness. Skin: Warm, dry with normal turgor. Normal color with no rashes, no lesions, and no evidence of cellulitis. MS/ Extremity: Pulses equal, no cyanosis. Neurovascular intact. Full, normal range of motion. Neuro: Awake and alert, GCS 15, oriented to person, place, time, and situation. Cranial nerves II-XII grossly intact. Motor strength 5/5 in all extremities. Sensory grossly intact. Psych: Awake, alert, with orientation to person, place and time. Behavior, mood, and affect are within normal limits Vital Signs: 02/16 21:52 BP 173 / 107; Pulse 74; Resp 20 S; Temp 98.7(O); Pulse Ox 100% on R/A; Weight 74.84 kg; ha1 Height 5 ft. 9 in. ; 22:15 BP 185 / 108; Pulse 69; Resp 18 S; Pulse Ox 100% on R/A; ha1 22:45 BP 197 / 75; Pulse 81; Resp 18 S; Pulse Ox 100% on R/A; ha1 23:10 BP 180 / 97; Pulse 89; Resp 18 S; Pulse Ox 99% on R/A; ha1 02/17 00:00 BP 168 / 97; Pulse 92; Resp 17 S; Pulse Ox 100% on R/A; ha1 01:00 BP 183 / 96; Pulse 84; Resp 17 S; Temp 99.9(O); Pulse Ox 100% on R/A; ha1 02:00 BP 169 / 98; Pulse 93; Resp 16 S; Pulse Ox 99% on R/A; ha1 03:00 BP 160 / 81; Pulse 82; Resp 17 S; Temp 98.4(O); Pulse Ox 100% on R/A; ha1 02/16 21:52 Body Mass Index 24.37 (74.84 kg, 175.26 cm) ha1 Soren Coma Score: 03:17 Eye Response: spontaneous(4). Motor Response: obeys commands(6). Verbal Response: sp4 oriented(5). Total: 15. MDM: 02/16 21:59 Patient medically screened. [facility] 02/17 02:31 ED course: CLINICAL HISTORY: CHEST PAIN COMPARISON: None. TECHNIQUE: XR CHEST 1 VIEW [facility] 02/17/2024 9:54 PM CDT FINDINGS: Cardiac silhouette is normal in size. Lungs are clear without consolidation, atelectasis, mass or edema. There is no pleural effusion. There is no pneumothorax. There are no acute osseous findings. IMPRESSION: Clear lungs. Electronically signed by: Joel Walker MD 02/17/2024 11:34 PM . 03:20 Differential diagnosis: acute pericarditis, anxiety, chest wall pain, costochondritis, sp4 esophagitis. HEART Score: History: Slightly Suspicious (0), ECG: Normal (0), Age: < or = 45 years (0), Risk Factors: No Risk Factors Known (0), Troponin: < or = 1 x Normal Limit (0), Total Score = 0. The patient was given aspirin in the Emergency Department. Data reviewed: vital signs, nurses notes, EMS record, lab test result(s), EKG, radiologic studies, plain films. ED course: Patient tested positive for cocaine. Most likely chest discomfort and elevated blood pressure secondary to cocaine abuse. Patient's blood pressure has improved after medications in ER. Patient stable for discharge home with recommendation to discontinue cocaine abuse. Losartan 50 mg p.o. daily prescribed for elevated blood pressure. . 02/16 21:54 Order name: Basic Metabolic Panel; Complete Time: 23:06 [facility] 02/16 21:54 Order name: CBC with Diff; Complete Time: 23:06 [facility] 02/16 21:54 Order name: LFT's; Complete Time: 23:06 [facility] 02/16 21:54 Order name: Magnesium; Complete Time: 23:06 [facility] 02/16 21:54 Order name: NT PRO-BNP; Complete Time: 23:06 [facility] 02/16 21:54 Order name: PT-INR; Complete Time: 23:06 [facility] 02/16 21:54 Order name: Troponin HS; Complete Time: 23:06 [facility] 02/16 23:06 Order name: Urine Drug Screen [facility] 02/17 02:17 Order name: Urinalysis w/ reflexes; Complete Time: 02:40 [facility] 02/16 21:54 Order name: XRAY Chest (1 view) [facility] 02/16 21:54 Order name: EKG; Complete Time: 21:55 [facility] 02/16 21:54 Order name: Cardiac monitoring; Complete Time: 22:01 [facility] 02/16 21:54 Order name: EKG - Nurse/Tech; Complete Time: 22:17 [facility] 02/16 21:54 Order name: IV Saline Lock; Complete Time: 22:01 [facility] 02/16 21:54 Order name: Labs collected and sent; Complete Time: 22:36 [facility] 02/16 21:54 Order name: O2 Per Protocol; Complete Time: 22:36 [facility] 02/16 21:54 Order name: O2 Sat Monitoring; Complete Time: 22:36 4 EC:45 Rate is 60 beats/min. Rhythm is regular, Normal Sinus Rhythm. QRS [place] is Normal. IA sp4 interval is normal. QRS interval is normal. QT interval is normal. No Q waves. T waves are Normal. No ST changes noted. Clinical impression: No evidence of ischemia. Interpreted by me. Reviewed by me. Administered Medications: 02/16 22:30 Drug: hydrALAZINE IVP 20 mg IVP once Route: IVP; Site: left antecubital; 1 22:31 Drug: metoCLOPramide IVP 10 mg IVP once; over 1 to 2 minutes Route: IVP; Site: left [facility] antecubital; 23:13 Follow up: Response: No adverse reaction; Marked relief of symptoms 1 22:32 Drug: NS 0.9% IV 1000 ml IV at 1 bolus Per protocol; 1000 mL bolus Route: IV; Rate: 1 ha1 bolus; Site: left antecubital; 02/17 00:00 Follow up: Response: No adverse reaction; IV Status: Completed infusion; IV Intake: ha1 1000ml 02/16 22:33 Drug: Aspirin PO Chewable Tablet 324 mg PO once; 81 mg tablets x 4 Route: PO; ha1 23:14 Follow up: Response: No adverse reaction 1 22:33 Drug: Diazepam IVP 5 mg IVP once Route: IVP; Site: left antecubital; ha1 22:45 Follow up: Response: No adverse reaction; Marked relief of symptoms; Anxiety decreased; ha1 RASS: Alert and Calm (0) 22:45 Drug: hydrALAZINE IVP 20 mg IVP once Route: IVP; Site: left antecubital; ha1 23:13 Follow up: Response: No adverse reaction; Blood pressure is lowered ha1 02/17 01:50 Drug: Acetaminophen PO 1000 mg PO once Route: PO; ha1 02:59 Follow up: Response: No adverse reaction; Temperature is decreased ha1 02:50 Drug: Losartan PO 100 mg PO once Route: PO; ha1 03:05 Follow up: Response: No adverse reaction ha1 Disposition Summary: 02/18/24 02:43 Discharge Ordered Notes: Location: Home sp4 Problem: new sp4 Symptoms: have improved sp4 Condition: Stable sp4 Diagnosis - Essential (primary) hypertension sp4 - Cocaine abuse sp4 - Chest pain, unspecified sp4 Followup: sp4 - With: Private Physician - When: 7 - 10 days - Reason: Recheck today's complaints Discharge Instructions: - Discharge Summary Sheet sp4 - Cocaine Use Disorder sp4 Forms: - Patient Portal Instructions sp4 Prescriptions: - losartan 50 mg Oral tablet - take 1 tablet ORAL route every evening; 30 tablet; Refills: 0, Product sp4 Selection Permitted Signatures: Dispatcher [employer] EDMS Melissa Goode RN RN ha1 Nik Brambila MD MD sp4 Corrections: (The following items were deleted from the chart) 02/16 21:55 21:55 BASIC METABOLIC PANEL+C.LAB.BRZ ordered. EDMS EDMS 21:55 21:55 CBC+H.LAB.BRZ ordered. EDMS EDMS 21:55 21:55 HEPATIC FUNCTION+C.LAB.BRZ ordered. EDMS EDMS 21:55 21:55 MAGNESIUM+C.LAB.BRZ ordered. EDMS EDMS 21:55 21:55 PROBNP+C.LAB.BRZ ordered. EDMS EDMS 21:55 21:55 PROTIME (+INR)+COAG.LAB.BRZ ordered. EDMS EDMS 21:55 21:55 Troponin High Sensitivity+C.LAB.BRZ ordered. EDMS EDMS 05/13 02:18 02:18 Urinalysis+U.LAB.BRZ ordered. EDMS EDMS
[2024-02-18] MEDS ORDERED: LOSARTAN POTASSIUM 50 MG TABLET ONE (02:52)
[2024-02-18 03:24] VITALS: BP 160/81; TEMP 98.4; O2SAT 100
--- NOTE | 2024-02-18 13:18 | EKG ---
Test Date: 2024-02-17 Test Time: 21:59:21 Paste Up Copy Camera Operator: MARCIA MEASUREMENT RESULTS: Intervals: Rate: 60 OR: 156 QRSD: 98 QT: 410 QTc: 410 [place]: P: 65 OR: 156 QRS: 80 T: 59 INTERPRETIVE STATEMENTS: Normal sinus rhythm Left ventricular hypertrophy with repolarization abnormality Abnormal ECG Compared to ECG 11/05/2023 15:44:33 Early repolarization now present Electronically Signed On 02-18-24 13:16:51 CDT by Jhon Mcgarry
--- NOTE | 2024-02-18 13:49 | RAD REPORT ---
EXAM DESCRIPTION: RAD - Chest Single View - 02/17/2024 11:02 pm CLINICAL HISTORY: CHEST PAIN COMPARISON: None. TECHNIQUE: XR CHEST 1 VIEW 02/17/2024 9:54 PM CDT FINDINGS: Cardiac silhouette is normal in size. Lungs are clear without consolidation, atelectasis, mass or edema. There is no pleural effusion. There is no pneumothorax. There are no acute osseous fin dings. IMPRESSION: Clear lungs. Electronically signed by: Joel Walker MD 02/17/2024 11:34 PM CDT Due to temporary technical issues with the PACS/Fluency reporting system, reports are being signed by the in house radiologist without review as a courtesy to ensure prompt reporting. The interpreting r adiologist is fully responsible for the content of the report.
== END 2024-02-18 03:05 | disposition home or self-care (01) ==
LOC: ER 21:36
DX: R07.9 Chest pain, unspecified (principal); I10 Essential (primary) hypertension; F14.10 Cocaine abuse, uncomplicated
CPT/HCPCS: 96361; 93005; 85025; 81001; 80048; 36415; 83735; 85610; 80076; 84484; 83880; 80307; 71045; 96375; 96374; 99285; J0360; J2765; J3360; J7030

== ENCOUNTER 2024-04-12 16:08 | Emergency (ER) | payer OTHER ==
--- OUTSIDE RECORDS SUMMARY | 2024-04-12 16:16 | XMS REPORT | Continuity of Care Document ---
Author Name Unknown Address [address] [facility] [address] [place] [address] [facility] thconnect Address [address] [facility] 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 Phone PCP, PATIENT DOES NOT HAVE A Primary Care Physic nadiya Unavailable FABIAN LAWRENCE Attending Clinician Unavailable FABIAN LAWRENCE Attending Clinician Unavailable MILAGROS COURTNEY Attending Clinician Unavailable Milagros Courtney MD Attending Clinician [phone] OSITO HILLMAN Attending Clinician Unavailable Osito Hillman MD Attending Clinician [phone] Jcarlos Mora Attending Clinician Unavailable RAMIRO TIPTON Attending Clinician Unavailable Ramiro Steiner S Attending Clinician [phone] YANCY CRUMP Attending Clinician Unavailable Yancy Crump NP Attending Clinician [phone] MURTAZA RAMIREZ Attending Clinician Unavailable Emily Watt MD Attending Clinician [phone] Murtaza Ramirez DO Attending Clinician [phone] HARSHAD LOWE Attending Clinician Unavailable Harshad Morales Attending Clinician [phone] KENIA ALCALA Attending Clinician Unavailab Kenia Santos DO Attending Clinician [phone] SMILEY WELCH Attending Clinician Unavailable Yuri ROSALES, Smiley Attending Clinician [phone] Deepak Weber MD Attending Clinician [phone] Sarah Ramos Attending Clinician [phone] Mike Bob MD Attending Clinician [phone] FABIAN LAWRENCE Admitting Clinician Unavailable MILAGROS COURTNEY Admitting Clinician Unavailable OSITO HILLMAN Admitting Clinician Unavailable Physician, No Primary or Family Admitting Clinic nadiya Unavailable EMILY WATT Admitting Clinician Unavailab HARSHAD Arzola Admitting Clinician Unavailable Deepak Weber MD Admitting Clinician [phone] Mike Bob MD Admitting Clinician [phone] Payers Payer Name Policy Type Policy Number Effective Date Expirati on Date Source [employer] [id number] 2023 00:00:00 [employer] COMM [id number] 2023 00:00:00 MEDICAID SSI PENDING PENDING 2023 00:00:00 2023 00:00:00 Problems Condition Name Condition Details Condition Category Status Onset Date Resolution Date Last Treatment Date Treating Clinician Comments Source Intractabl e vomiting with nausea Intractabl e vomiting with nausea Disease Active 04-17 00:00: 00 [facility] Essential hypertensi on Essential hypertensi on Disease Active 04-17 00:00: 00 [facility] Troponin I above reference range Troponin I above reference range Disease Active 04-17 00:00: 00 [facility] CAESAR (acute kidney injury) CAESAR (acute kidney injury) Disease Active 04-08 00:00: 00 [facility] Allergies, Adverse Reactions, Alerts Allergy Name Allergy Type Status Severity Reaction(s) Onset Date Inactive Date Treating Clinician Comments Source No Known Allergie s DA Active U 06-14 00:00: 00 [facility] NO KNOWN ALLERGIE S Drug Class Active [facility] Social History Social Habit Start Date Stop Date Quantity Comments Source History of tobacco use Smokes tobacco daily [facility] History of Social function 2023-10-15 00:00:00 2023-10-15 00:00:00 [facility] Exposure to SARS-CoV-2 (event) 2023-01-30 00:00:00 2023-02-09 20:59:00 Not sure [facility] Tobacco use and exposure 2020-04-08 00:00:00 2020-04-08 00:00:00 Smokeless tobacco non-user [facility] Sex Assigned At 1980 00:00:00 1980 00:00:00 [facility] Smoking Status Start Date Stop Date Source Smokes tobacco daily 2020-04-08 00:00:00 [facility] Medications Ordered Medication Name Filled Medication Name Start Date Stop Date Current Medication? Ordering Clinician Indication Dosage Frequency Signature (SIG) Comments Components Source iopamidol (ISOVUE 370-500 mL) injection 90 mL 10-15 20:15: 00 10-15 20:15 :00 No [id number] 90mL 90 mL, Intravenou s, ONCE, 1 dose, On Sun10/15/23 at 1415, Routine [facility] KCL (KLOR-CON M20) tablet 40 mEq 10-15 19:30: 00 10-15 19:26 :00 No 40meq 40 mEq, Oral, ONCE, 1 dose, On Sun10/15/23 at 1330, JUNE [facility] ketorolac (TORADOL) injection 30 mg 10-15 19:15: 00 10-15 19:30 :00 No 30mg 30 mg, Slow IV Push, ONCE, 1 dose, On Sun10/15/23 at 1315, Routine [facility] NaCl 0.9% (NS) bolus infusion 1,000 mL 10-15 19:15: 00 10-15 21:07 :00 No 1000mL at 999 mL/hr, 1,000 mL, IV Infusion, ONCE, 1 dose, On Sun10/15/23 at 1315, [facility] pantoprazol e (PROTONIX) injection 40 mg 10-15 18:30: 00 10-15 19:31 :00 No 40mg 40 mg, Slow IV Push, ONCE, 1 dose, On Sun10/15/23 at 1230 [facility] ondansetron (ZOFRAN (PF)) injection 4 mg 10-15 18:30: 00 10-15 19:31 :00 No 4mg 4 mg, Slow IV Push, ONCE, 1 dose, On Sun10/15/23 at 1230, [facility] hydralAZINE (APRESOLINE ) injection 10 mg 10-15 05:15: 00 10-15 05:04 :00 No 10mg 10 mg, Slow IV Push, ONCE, 1 dose, On Sun10/14/23 at 2315, [facility] hydralAZINE (APRESOLINE ) injection 10 mg 08 04:00: 00 10-15 03:53 :00 No 10mg 10 mg, Slow IV Push, ONCE, 1 dose, On Sun10/14/23 at 2200, [facility] ondansetron (ZOFRAN (PF)) injection 4 mg 08 02:45: 00 10-15 02:49 :00 No 4mg 4 mg, Slow IV Push, ONCE, 1 dose, On Sun10/14/23 at 2045, [facility] hydrALAZINE 10 mg tablet 10-15 00:00: 00 Yes [id number] 10mg Take 1 tablet by mouth in the morning and 1 tablet at noon and 1 tablet in the evening. [facility] ondansetron 4 mg disintegrat ing tablet 10-15 00:00: 00 Yes [id number] 4mg Take 1 tablet by mouth every 8 (eight) hours as needed for Nausea and Vomiting (N/V) for up to 10 doses. [facility] albuterol 90 mcg/actuati on inhaler 10-15 00:00: 00 Yes [id number] 2{puff} Inhale 2 Puffs every 4 (four) hours as needed for Wheezing or Shortness of Breath. [facility] ibuprofen (IBU) tablet 600 mg 06-16 18:30: 00 06-16 18:40 :00 No 600mg 600 mg, Oral, ONCE, 1 dose, [facility] ([facility] 650 mg 06-16 17:45: 00 06-16 17:47 :00 No 650mg 650 mg, Oral, ONCE, 1 dose, [facility] 06/16/23 at 1245[facility] cloNIDine (CATAPRES) tablet 0.1 mg 06-16 17:45: 00 06-16 17:48 :00 No .1mg 0.1 mg, Oral, ONCE, 1 dose, On 06/16/23 at 1245, STAT [facility] iopamidol (ISOVUE 370-500 mL) injection 90 mL 06-16 14:20: 00 06-16 14:45 :00 No [id number] 90mL 90 mL, Intravenou s, ONCE, 1 dose, On 06/16/23 at 0945, Routine [facility] haloperidol lactate (HALDOL) injection 2.5 mg 06-16 14:15: 00 06-16 14:17 :00 No 2.5mg 2.5 mg, Intravenou s, ONCE, 1 dose, On 06/16/23 at 0915, STAT [facility] NaCl 0.9% (NS) bolus infusion 1,000 mL 06-16 13:45: 00 06-16 17:38 :00 No 1000mL at 999 mL/hr, 1,000 mL, IV Infusion, ONCE, 1 dose, On 06/16/23 at 0845, JUNE [facility] amoxicillin 500 mg capsule 05-01 00:00: 00 Yes [id number] 500mg Take 1 capsule by mouth in the morning and 1 capsule at noon and 1 capsule in the evening. [facility] ibuprofen 800 mg tablet 05-01 00:00: 00 Yes [id number] 800mg Take 1 tablet by mouth every 6 (six) hours as needed for Pain (scale 4-6). [facility] traMADoL (ULTRAM) tablet 50 mg 03-22 08:30: 00 03-22 07:33 :00 No 50mg 50 mg, Oral, ONCE, 1 dose, On Erika 03/22/23 at 0330, Routine [facility] clindamycin (CLEOCIN HCL) capsule 450 mg 03-22 08:30: 00 03-22 07:34 :00 No 450mg 450 mg, Oral, ONCE, 1 dose, On Erika 03/22/23 at 0330, JUNE
Re ason for Anti-Infec tive: Documented Infection< br>Documen nakita Infection Site: HEENT
D uration of Therapy: Other (see Comments)< br>Restric nakita use approved by: ED PROVIDER [facility] ibuprofen (IBU) tablet 600 mg 03-22 07:30: 00 03-22 07:34 :00 No 600mg 600 mg, Oral, ONCE, 1 dose, On Erika 03/22/23 at 0230, JUNE [facility] traMADoL 50 mg tablet 03-22 00:00: 00 Yes [id number] 50mg Take 1 tablet by mouth every 6 (six) hours as needed for Pain (scale 7-10). Indication s: acute pain [facility] ibuprofen 600 mg tablet 03-22 00:00: 00 Yes [id number] 600mg Take 1 tablet by mouth every 6 (six) hours as needed for Pain (scale 4-6). [facility] clindamycin 150 mg capsule 03-22 00:00: 00 04-02 04:59 :00 No [id number] 450mg Take 3 capsules by mouth in the morning and 3 capsules at noon and 3 capsules in the evening. Do all this for 10 days. [facility] maalox:diph enhydrAMINE :lidocaine 2 % viscous 1:1:1 ([facility]) oral suspension 15 mL 02-10 03:15: 00 02-10 03:17 :00 No 15mL 15 mL, Oral, ONCE, 1 dose, On Sun02/09/23 at 2215, Routine [facility] cloNIDine (CATAPRES) tablet 0.1 mg 02-10 02:15: 00 02-10 02:15 :00 No .1mg 0.1 mg, Oral, ONCE, 1 dose, On Sun02/09/23 at 2115, STAT [facility] dicyclomine (BENTYL) injection 20 mg 02-10 02:00: 00 02-10 00:59 :00 No 20mg 20 mg, Intramuscu lar, ONCE, 1 dose, On Sun02/09/23 at 2100, Routine [facility] NaCl 0.9% (NS) IV infusion 1,000 mL 02-10 01:00: 00 Yes 1000mL at 999 mL/hr, Intravenou s, CONTINUOUS , Starting on Sun02/09/23 at 2000, Until Discontinu ed, JUNE [facility] haloperidol lactate (HALDOL) injection 2.5 mg 02-10 00:00: 00 02-10 00:59 :00 No 2.5mg 2.5 mg, Slow IV Push, ONCE, 1 dose, On Sun02/09/23 at 1900, STAT [facility] proMETHazin e 25 mg tablet 02-09 00:00: 00 Yes [id number] 25mg Take 1 tablet by mouth every 6 (six) hours as needed for Nausea and Vomiting (N/V) or N/V unresponsi ve to Ondansetro n. [facility] losartan 50 mg tablet 02-09 00:00: 00 03-12 04:59 :00 No [id number] 50mg Take 1 tablet by mouth in the morning for 30 days. [facility] pantoprazol e (PROTONIX) 80 mg in NaCl 0.9% (NS) 20 mL syringe 02-08 13:00: 00 02-08 12:04 :00 No 80mg 80 mg, IV Push, ONCE, 1 dose, On Erika 02/08/23 at 0800, Administer over 2 Minutes, 20 mL [facility] dicyclomine (BENTYL) tablet 20 mg 02-08 12:00: 00 02-08 12:01 :00 No 20mg 20 mg, Oral, ONCE, 1 dose, On Eirka 02/08/23 at 0700, [facility] NaCl 0.9% (NS) bolus infusion 1,000 mL 02-08 12:00: 00 02-08 12:10 :00 No 1000mL at 999 mL/hr, 1,000 mL, IV Infusion, ONCE, 1 dose, On Erika 02/08/23 at 0700, [facility] ondansetron (ZOFRAN (PF)) injection 4 mg 02-08 08:45: 00 02-08 08:41 :00 No 4mg 4 mg, Slow IV Push, ONCE, 1 dose, On Erika 02/08/23 at 0345, [facility] pantoprazol e (PROTONIX) EC tablet 40 mg 01-13 04:45: 00 01-13 04:49 :00 No 40mg 40 mg, Oral, ONCE, 1 dose, On Sun01/12/23 at 2345, [facility] iopamidol (ISOVUE 370-500 mL) injection 100 mL 01-13 04:15: 00 01-13 04:15 :00 No [id number] 100mL 100 mL, Intravenou s, ONCE, 1 dose, On Sun01/12/23 at 2315, Routine [facility] NaCl 0.9% (NS) bolus infusion 1,000 mL 01-13 03:15: 00 01-13 04:42 :00 No 1000mL at 999 mL/hr, 1,000 mL, IV Infusion, ONCE, 1 dose, On Sun01/12/23 at 2215, JUNE [facility] pantoprazol e (PROTONIX) 40 mg EC tablet 01-13 00:00: 00 Yes [id number] 40mg Take 1 tablet by mouth in the morning. [facility] ondansetron 4 mg disintegrat ing tablet 01-13 00:00: 00 10-15 00:00 :00 No [id number] 4mg Take 1 tablet by mouth every 8 (eight) hours as needed for Nausea and Vomiting (N/V). [facility] dexamethaso ne (DECADRON PHOSPHATE) injection 10 mg 11-24 15:15: 00 11-24 14:09 :00 No 10mg 10 mg, Oral, ONCE, 1 dose, On [facility] 11/24/21 at 0915, STAT [facility] HYDROcodone -acetaminop hen (NORCO 5) 5-325 mg tablet 1 tablet 11-24 15:15: 00 11-24 14:08 :00 No 1{tbl} 1 tablet, Oral, ONCE, 1 dose, On [facility] 11/24/21 at 0915, JUNE [facility] diazePAM (VALIUM) tablet 5 mg 11-24 15:15: 00 11-24 14:09 :00 No 5mg 5 mg, Oral, ONCE, 1 dose, On [facility] 11/24/21 at 0915, JUNE [facility] cyclobenzap rine 10 mg tablet 11-24 00:00: 00 03-22 00:00 :00 No [id number] 10mg Take 1 tablet by mouth 3 (three) times daily as needed for Muscle Spasms. [facility] dicyclomine 20 mg tablet - 00:00: 00 Yes [id number] 20mg Take 1 tablet by mouth 4 (four) times daily. [facility] loratadine 10 mg tablet - 00:00: 00 Yes [id number] 10mg Take 1 tablet by mouth daily. [facility] ondansetron 4 mg disintegrat ing tablet -16 00:00: 00 10-15 00:00 :00 No [id number] 4mg Take 1 tablet by mouth every 4 (four) hours as needed for Nausea and Vomiting (N/V). [facility] aspirin 81 mg chewable tablet 04-19 00:00: 00 05-20 04:59 :00 No [id number] 81mg Take 1 tablet by mouth daily for 30 days. [facility] aspirin chewable tablet 81 mg 04-18 14:00: 00 Yes 81mg 81 mg, Oral, DAILY, First dose on 04/18/20 at 0900, Until Discontinu ed, Routine [facility] carvediloL 3.125 mg tablet 04-18 00:00: 00 05-19 04:59 :00 No [id number] 3.125mg Take 1 tablet by mouth 2 (two) times daily with meals for 30 days. [facility] pantoprazol e 40 mg EC tablet 04-18 00:00: 05-19 04:59 :00 No [id number] 40mg Take 1 tablet by mouth daily for 30 days. [facility] carvediloL (COREG) tablet 3.125 mg 04-17 22:00: 00 Yes 3.125mg 3.125 mg, Oral, BID MEALS, First dose on 04/17/20 at 1700, Until Discontinu ed, Routine
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 : DAYDC [facility] atorvastati n (LIPITOR) tablet 40 mg 04-17 22:00: 00 Yes 40mg 40 mg, Oral, QPM, First dose on 04/17/20 at 1700, Until Discontinu ed, Routine [facility] heparin (porcine) injection 5,000 Units 04-17 19:00: 00 Yes 5000U 5,000 Units, Subcutaneo us, Q8H, First dose on 04/17/20 at 1400, Until Discontinu ed, Routine [facility] nicotine (NICODERM) 7 mg/24 hr patch 1 Patch 04-17 18:00: 00 Yes 1{patch } 1 Patch, Topical, Administer over 24 Hours, Q24H, First dose on 04/17/20 at 1300, Until Discontinu ed, Routine [facility] D5W 0.9% NaCl (NS) IV infusion 1,000 mL 04-17 17:00: 00 04-18 13:34 :21 No 1000mL at 100 mL/hr, 1,000 mL, IV Infusion, CONTINUOUS , Starting 04/17/20 at 1200, Until 04/18/20 at 0834, Routine [facility] LORazepam (ATIVAN) injection 0.5 mg 04-17 15:55: 35 Yes .5mg 0.5 mg, Slow IV Push, Q8HPRN, Starting 04/17/20 at 1055, Until Discontinu ed, Routine, Anxiety, Agitation [facility] nitroglycer in (NITROSTAT) sublingual tablet 0.4 mg 04-17 15:43: 20 Yes .4mg 0.4 mg, Sublingual , Q5MIN PRN, Starting 04/17/20 at 1043, Until Discontinu ed, Routine, Chest pain [facility] ondansetron (ZOFRAN (PF)) injection 4 mg 04-17 15:24: 53 Yes 4mg 4 mg, Slow IV Push, Q6HPRN, Starting 04/17/20 at 1024, Until Discontinu ed, Routine, Nausea and Vomiting (N/V) [facility] morpHINE injection 2 mg 04-17 15:24: 16 04-18 15:23 :16 No 2mg 2 mg, Slow IV Push, Q4HPRN, Starting 04/17/20 at 1024, Until 04/18/20 at 1023, Routine, Pain (scale 7-10) [facility] aspirin chewable tablet 324 mg 04-17 14:59: 00 04-17 15:04 :00 No 324mg 324 mg, Oral, ONCE, 1 dose, 04/17/20 at 1000, Routine [facility] proMETHazin e (PHENERGAN) 25 mg in NaCl 0.9% (NS) 50 mL piggyback 04-17 14:45: 00 04-17 14:45 :00 No 25mg 25 mg, IV Piggyback, ONCE, 1 dose, 04/17/20 at 0945, 50 mL [facility] NaCl 0.9% (NS) bolus infusion 500 mL 04-17 14:00: 00 04-18 01:12 :00 No 500mL at 999 mL/hr, 500 mL, IV Infusion, ONCE, 1 dose, 04/17/20 at 0900, STAT [facility] ondansetron (ZOFRAN (PF)) injection 4 mg 04-17 14:00: 00 04-17 13:10 :00 No 4mg 4 mg, Slow IV Push, ONCE, 1 dose, 04/17/20 at 0900, [facility] morpHINE injection 4 mg 04-17 14:00: 00 04-17 13:10 :00 No 4mg 4 mg, Slow IV Push, ONCE, 1 dose, 04/17/20 at 0900, STAT [facility] pantoprazol e (PROTONIX) 40 mg in NaCl 0.9% (NS) 100 mL MINI-BAG 04-17 14:00: 00 04-17 13:26 :00 No 40mg 40 mg, IV Piggyback, ONCE, 1 dose, 04/17/20 at 0900, 100 mL [facility] NaCl 0.9% (NS) bolus infusion 1,000 mL 04-17 13:00: 00 04-17 15:04 :00 No 1000mL at 999 mL/hr, 1,000 mL, IV Infusion, ONCE, 1 dose, 04/17/20 at 0800, STAT [facility] ondansetron (ZOFRAN (PF)) injection 4 mg 04-17 13:00: 00 04-17 11:54 :00 No 4mg 4 mg, Slow IV Push, ONCE, 1 dose, 04/17/20 at 0800, [facility] LORazepam (ATIVAN) injection 2 mg 04-08 09:00: 00 04-08 07:56 :00 No 2mg 2 mg, Slow IV Push, ONCE, 1 dose, Erika 04/08/20 at 0400, Routine [facility] NaCl 0.9% (NS) IV infusion 1,000 mL 04-08 06:00: 00 Yes 1000mL at 150 mL/hr, Intravenou s, CONTINUOUS , Starting Erika 04/08/20 at 0100, Until Discontinu ed, Routine [facility] ondansetron (ZOFRAN (PF)) injection 8 mg 04-08 06:00: 00 04-08 04:53 :00 No 8mg 8 mg, Slow IV Push, ONCE, 1 dose, Erika 04/08/20 at 0100, [facility] NaCl 0.9% (NS) IV infusion 1,000 mL 04-08 05:45: 00 04-08 06:21 :00 No 1000mL at 999 mL/hr, Intravenou s, ONCE, 1 dose, Erika 04/08/20 at 0045, Routine [facility] NaCl 0.9% (NS) bolus infusion 1,000 mL 04-08 01:00: 00 04-08 02:20 :00 No 1000mL at 999 mL/hr, 1,000 mL, IV Infusion, ONCE, 1 dose, 04/07/20 at 2000, [facility] No known medications No Un [facility] Vital Signs Vital Name Observation Time Observation Value Comments S ource Systolic blood pressure 2023-10-15 21:03:00 175 mm[Hg] [facility] Diastolic blood pressure 2023-10-15 21:03:00 100 mm[Hg] [facility] Respiratory rate 2023-10-15 21:03:00 20 /min [facility] Oxygen saturation in Arterial blood by Pulse oximetry 2023-10-15 21:03:00 99 /min [facility] Heart rate 2023-10-15 18:04:00 107 /min [facility] Body temperature 2023-10-15 18:04:00 37.22 Sumi [facility] Body height 2023-10-15 18:04:00 175.3 cm [facility] Body weight 2023-10-15 18:04:00 68.04 kg [facility] BMI 2023-10-15 18:04:00 22.15 kg/m2 [facility] Systolic blood pressure 2023-10-15 06:02:00 154 mm[Hg] [facility] Diastolic blood pressure 2023-10-15 06:02:00 90 mm[Hg] [facility] Heart rate 2023-10-15 06:02:00 76 /min [facility] Respiratory rate 2023-10-15 06:02:00 16 /min [facility] Oxygen saturation in Arterial blood by Pulse oximetry 2023-10-15 06:02:00 96 /min [facility] Body temperature 2023-10-15 02:24:00 37.5 Sumi [facility] Body height 2023-10-15 02:24:00 175.3 cm [facility] Body weight 2023-10-15 02:24:00 68.04 kg [facility] BMI 2023-10-15 02:24:00 22.15 kg/m2 [facility] Body temperature 2023-06-16 19:36:00 37.22 Sumi [facility] Respiratory rate 2023-06-16 19:36:00 18 /min [facility] Systolic blood pressure 2023-06-16 19:00:00 104 mm[Hg] [facility] Diastolic blood pressure 2023-06-16 19:00:00 62 mm[Hg] [facility] Heart rate 2023-06-16 19:00:00 81 /min [facility] Oxygen saturation in Arterial blood by Pulse oximetry 2023-06-16 19:00:00 97 /min [facility] Body height 2023-06-16 12:42:00 175.3 cm [facility] Body weight 2023-06-16 12:42:00 68.04 kg [facility] BMI 2023-06-16 12:42:00 22.15 kg/m2 [facility] Systolic blood pressure 2023-05-01 08:48:00 136 mm[Hg] [facility] Diastolic blood pressure 2023-05-01 08:48:00 93 mm[Hg] [facility] Heart rate 2023-05-01 08:48:00 70 /min [facility] Body temperature 2023-05-01 08:48:00 36.78 Sumi [facility] Respiratory rate 2023-05-01 08:48:00 18 /min [facility] Body height 2023-05-01 08:48:00 175.3 cm [facility] Body weight 2023-05-01 08:48:00 73.483 kg [facility] BMI 2023-05-01 08:48:00 23.92 kg/m2 [facility] Oxygen saturation in Arterial blood by Pulse oximetry 2023-05-01 08:48:00 98 /min [facility] Systolic blood pressure 2023-03-22 07:34:00 154 mm[Hg] [facility] Diastolic blood pressure 2023-03-22 07:34:00 107 mm[Hg] [facility] Heart rate 2023-03-22 07:34:00 71 /min [facility] Body temperature 2023-03-22 07:34:00 36.56 Sumi [facility] Respiratory rate 2023-03-22 07:34:00 16 /min [facility] Oxygen saturation in Arterial blood by Pulse oximetry 2023-03-22 07:34:00 100 /min [facility] Body height 2023-03-22 06:17:00 175.3 cm [facility] Body weight 2023-03-22 06:17:00 72.485 kg [facility] BMI 2023-03-22 06:17:00 23.60 kg/m2 [facility] Systolic blood pressure 2023-02-10 03:00:00 195 mm[Hg] [facility] Diastolic blood pressure 2023-02-10 03:00:00 98 mm[Hg] [facility] Heart rate 2023-02-10 03:00:00 137 /min [facility] Respiratory rate 2023-02-10 03:00:00 18 /min [facility] Oxygen saturation in Arterial blood by Pulse oximetry 2023-02-10 03:00:00 90 /min [facility] Body temperature 2023-02-10 02:30:00 37.78 Sumi [facility] Body weight 2023-02-09 23:09:00 79.379 kg [facility] BMI 2023-02-09 23:09:00 25.84 kg/m2 [facility] Systolic blood pressure 2023-02-08 12:10:00 163 mm[Hg] [facility] Diastolic blood pressure 2023-02-08 12:10:00 102 mm[Hg] [facility] Respiratory rate 2023-02-08 12:10:00 16 /min [facility] Heart rate 2023-02-08 09:00:00 80 /min [facility] Oxygen saturation in Arterial blood by Pulse oximetry 2023-02-08 09:00:00 97 /min [facility] Body temperature 2023-02-08 08:26:00 36.78 Sumi [facility] Body height 2023-02-08 08:26:00 175.3 cm [facility] Body weight 2023-02-08 08:26:00 79.379 kg [facility] BMI 2023-02-08 08:26:00 25.84 kg/m2 [facility] Systolic blood pressure 2023-01-13 05:00:00 150 mm[Hg] [facility] Diastolic blood pressure 2023-01-13 05:00:00 99 mm[Hg] [facility] Heart rate 2023-01-13 05:00:00 74 /min [facility] Respiratory rate 2023-01-13 03:30:00 9 /min [facility] Oxygen saturation in Arterial blood by Pulse oximetry 2023-01-13 03:30:00 100 /min [facility] Body temperature 2023-01-13 02:06:00 37 Sumi [facility] Body height 2023-01-13 02:06:00 175.3 cm [facility] Body weight 2023-01-13 02:06:00 68.04 kg [facility] BMI 2023-01-13 02:06:00 22.15 kg/m2 [facility] Systolic blood pressure 2021-11-24 13:48:00 141 mm[Hg] [facility] Diastolic blood pressure 2021-11-24 13:48:00 90 mm[Hg] [facility] Heart rate 2021-11-24 13:48:00 80 /min [facility] [facility] Body temperature 2021-11-24 13:48:00 36.78 Sumi [facility] Respiratory rate 2021-11-24 13:48:00 22 /min [facility] Body weight 2021-11-24 13:48:00 79.379 kg [facility] BMI 2021-11-24 13:48:00 27.41 kg/m2 [facility] Oxygen saturation in Arterial blood by Pulse oximetry 2021-11-24 13:48:00 99 /min [facility] Systolic blood pressure 2021-10-23 18:43:00 136 mm[Hg] [facility] Diastolic blood pressure 2021-10-23 18:43:00 89 mm[Hg] [facility] Heart rate 2021-10-23 18:43:00 73 /min [facility] Body temperature 2021-10-23 18:43:00 37 Sumi [facility] Respiratory rate 2021-10-23 18:43:00 18 /min [facility] Body weight 2021-10-23 18:43:00 70.308 kg [facility] BMI 2021-10-23 18:43:00 24.28 kg/m2 [facility] Oxygen saturation in Arterial blood by Pulse oximetry 2021-10-23 18:43:00 100 /min [facility] Systolic blood pressure 2020-04-18 16:00:00 132 mm[Hg] [facility] Diastolic blood pressure 2020-04-18 16:00:00 95 mm[Hg] [facility] Heart rate 2020-04-18 16:00:00 82 /min [facility] Body temperature 2020-04-18 16:00:00 37.17 Sumi [facility] Respiratory rate 2020-04-18 16:00:00 18 /min [facility] Oxygen saturation in Arterial blood by Pulse oximetry 2020-04-18 16:00:00 98 /min [facility] Body weight 2020-04-18 08:08:00 70.988 kg [facility] BMI 2020-04-18 08:08:00 24.51 kg/m2 [facility] Body height 2020-04-17 22:34:00 170.2 cm [facility] Systolic blood pressure 2020-04-18 16:00:00 132 mm[Hg] [facility] Diastolic blood pressure 2020-04-18 16:00:00 95 mm[Hg] [facility] Heart rate 2020-04-18 16:00:00 82 /min [facility] Body temperature 2020-04-18 16:00:00 37.17 Sumi [facility] Respiratory rate 2020-04-18 16:00:00 18 /min [facility] Oxygen saturation in Arterial blood by Pulse oximetry 2020-04-18 16:00:00 98 /min [facility] Body weight 2020-04-18 08:08:00 70.988 kg [facility] BMI 2020-04-18 08:08:00 24.51 kg/m2 [facility] Body height 2020-04-17 22:34:00 170.2 cm [facility] Systolic blood pressure 2020-04-09 12:12:00 134 mm[Hg] [facility] Diastolic blood pressure 2020-04-09 12:12:00 74 mm[Hg] [facility] Heart rate 2020-04-09 12:12:00 80 /min [facility] Body temperature 2020-04-09 12:12:00 37 [facility] Respiratory rate 2020-04-09 12:12:00 18 /min [facility] Oxygen saturation in Arterial blood by Pulse oximetry 2020-04-09 12:12:00 99 /min [facility] Body weight 2020-04-09 08:55:00 70.489 kg [facility] BMI 2020-04-09 08:55:00 22.95 kg/m2 [facility] Body height 2020-04-08 06:35:00 175.3 cm [facility] Systolic blood pressure 2020-04-09 12:12:00 134 mm[Hg] [facility] Diastolic blood pressure 2020-04-09 12:12:00 74 mm[Hg] [facility] Heart rate 2020-04-09 12:12:00 80 /min [facility] Body temperature 2020-04-09 12:12:00 37 [facility] Respiratory rate 2020-04-09 12:12:00 18 /min [facility] Oxygen saturation in Arterial blood by Pulse oximetry 2020-04-09 12:12:00 99 /min [facility] Body weight 2020-04-09 08:55:00 70.489 kg [facility] BMI 2020-04-09 08:55:00 22.95 kg/m2 [facility] Body height 2020-04-08 06:35:00 175.3 cm [facility] Procedures Procedure Date / Time Performed Performing Clinician Source EKG-12 LEAD 2023-10-15 20:01:31 Fabian Lawrence [facility] CT CHEST PULMONARY ANGIOGRAM 2023-10-15 19:25:33 Fabian Lawrence [facility] LACTIC ACID WHOLE BLOOD 2023-10-15 18:32:00 Edmund Lawrence [facility] PHOSPHORUS 2023-10-15 18:31:00 Fabian Lawrence [facility] LIPASE 2023-10-15 18:31:00 Fabian Lawrence [facility] MAGNESIUM 2023-10-15 18:31:[address] [facility] TROPONIN I 2023-10-15 18:31:[address] [facility] COMP. METABOLIC PANEL ([id number]) 2023-10-15 18:31:00 Fabian Lawrence [facility] CBC WITH DIFF 2023-10-15 18:31:[address] [facility] D-DIMER 2023-10-15 18:31:[address] [facility] RAPID INFLUENZA A/B 2023-10-15 18:31:00 Fiona Lawrence [facility] N-TERMINAL PRO-BNP 2023-10-15 18:31:00 Nigel Lawrence [facility] COVID-19 (ID NOW RAPID TESTING) 2023-10-15 18:31:00 Fabian Lawrence [facility] TROPONIN I 2023-10-15 04:58:00 Milagros Courtney [facility] XR CHEST 1 VW 2023-10-15 02:49:[address] [facility] LIPASE 2023-10-15 02:49:00 [facility]ros [facility] TROPONIN I 2023-10-15 02:49:00 Milagros Courtney [facility] COMP. METABOLIC PANEL ([id number]) 2023-10-15 02:49:00 Milagros Courtney [facility] CBC WITH DIFF 2023-10-15 02:49:[address] [facility] COVID-19 (ID NOW RAPID TESTING) 2023-06-16 18:39:00 Osito Hillman [facility] CT ABDOMEN PELVIS W CONTRAST 2023-06-16 14:31:27 Osito Hillman [facility] URINE DRUG (IMMUNOASSAY) - COMPREHENSIVE DRUG SCREEN 2023-06-16 14:13:00 Osito Hillman [facility] ASSIGNMENT OF BENEFITS 2023-06-16 13:43:45 Docto r Unassigned, [place] [facility] CONSENT/REFUSAL FOR DIAGNOSIS AND TREATMENT 2023-06-16 13:42:28 Doctor Unassigned, [place] [facility] CREATINE KINASE 2023-06-16 13:02:[address] [facility] LIPASE 2023-06-16 13:02:[address] [facility] COMP. METABOLIC PANEL ([id number]) 2023-06-16 13:02:00 Osito Hillman [facility] CBC WITH DIFF 2023-06-16 13:02:[address] [facility] NOTICE OF PRIVACY PRACTICES 2023-05-01 08:43:44 Doctor Unassigned, [place] [facility] CONSENT/REFUSAL FOR DIAGNOSIS AND TREATMENT 2023-05-01 08:43:11 Doctor Unassigned, [place] [facility] CONSENT/REFUSAL FOR DIAGNOSIS AND TREATMENT 2023-03-22 05:59:51 Doctor Unassigned, [place] [facility] URINALYSIS 2023-02-10 01:53:00 Yancy Crump [facility] CREATINE KINASE 2023-02-10 00:43:00 Yancy Crump [facility] LIPASE 2023-02-10 00:43:00 Yancy Crump [facility] COMP. METABOLIC PANEL ([id number]) 2023-02-10 00:43:00 Yancy Crump [facility] CBC WITH DIFF 2023-02-10 00:43:[address] [facility] XR CHEST 1 VW 2023-02-08 12:06:00 Emily Watt [facility] URINALYSIS 2023-02-08 11:25:00 Emily Watt [facility] URINE DRUG (IMMUNOASSAY) - COMPREHENSIVE DRUG SCREEN W/O REFLEX 2023-02-08 11:25:00 Emily Watt [facility] LIPASE 2023-02-08 08:40:00 Emily Watt Un [facility] COMP. METABOLIC PANEL ([id number]) 2023-02-08 08:40:00 Emily Watt [facility] CBC WITH DIFF 2023-02-08 08:40:00 ShukriEmily Jung [facility] URINALYSIS 2023-01-13 04:28:00 Harshad Lowe [facility] CT ABDOMEN PELVIS W CONTRAST 2023-01-13 03:23:28 Harshad Lowe [facility] LIPASE 2023-01-13 02:22:00 Harshad Lowe [facility] COMP. METABOLIC PANEL ([id number]) 2023-01-13 02:22:00 Harshad Lowe [facility] CBC WITH DIFF 2023-01-13 02:22:[address] [facility] CONSENT/REFUSAL FOR DIAGNOSIS AND TREATMENT 2021-11-24 13:39:07 Doctor Unassigned, [place] [facility] ASSIGNMENT OF BENEFITS 2021-10-23 19:03:33 Docto r Unassigned, [place] [facility] NOTICE OF PRIVACY PRACTICES 2021-10-23 18:37:52 Doctor Unassigned, [place] [facility] CONSENT/REFUSAL FOR DIAGNOSIS AND TREATMENT 2021-10-23 18:36:42 Doctor Unassigned, [place] [facility] MAGNESIUM 2020-04-18 10:16:[address] [facility] TROPONIN I 2020-04-18 10:16:00 Ramses Wiseman [facility] BASIC METABOLIC PANEL (NA, K, CL, CO2, GLUCOSE, BUN, CREATININE, CA) 2020-04-18 10:16:00 Brunilda Luevano [facility] LIPID PANEL ([id number])(TOTAL CHOLESTEROL, TRIGLYCERIDES, HDL) 2020-04-17 17:32:00 Estrella Joseph [facility] EKG-12 LEAD 2020-04-17 16:25:28 Milagros Courtney [facility] SERUM DRUG (IMMUNOASSAY) - COMPREHENSIVE DRUG SCREEN 2020-04-17 16:17:00 Estrella Joseph [facility] PROTHROMBIN TIME / INR 2020-04-17 16:17:00 Kecia Joseph [facility] D-DIMER 2020-04-17 16:17:00 [facility] N-TERMINAL PRO-BNP 2020-04-17 16:17:00 [facility] 2020-04-17 15:08:28 [facility] 2020-04-17 15:07:00 [facility] TROPONIN I 2020-04-17 15:07:00 [facility] THYROID STIMULATING HORMONE 2020-04-17 15:07:00 Op[facility] COVID-19 (ID NOW RAPID TESTING) 2020-04-17 13:14:00 Milagros Courtney [facility] ACUTE CARE VENOUS BLOOD GAS 2020-04-17 13:10:00 Milagros Courtney [facility] EKG-12 LEAD 2020-04-17 13:04:30 Milagros Courtney [facility] EKG-12 LEAD 2020-04-17 12:46:15 Milagros Courtney [facility] CREATINE KINASE 2020-04-17 11:54:00 [facility] 2020-04-17 11:54:00 Murtaza Ramirez [facility] TROPONIN I 2020-04-17 11:54:00 Murtaza Ramirez [facility] COMP. METABOLIC PANEL ([id number]) 2020-04-17 11:54:00 Murtaza Ramirez [facility] CBC WITH DIFFERENTIAL 2020-04-17 11:54:00 Francesco Ramirez [facility] GLYCOSYLATED HEMOGLOBIN (A1C) 2020-04-17 11:54:00 Opal [facility] EKG-12 LEAD 2020-04-17 11:49:44 Murtaza Ramirez [facility] EKG-12 LEAD 2020-04-17 11:38:11 Murtaza Ramirez [facility] CREATINE KINASE 2020-04-09 08:58:00 West, Abel [facility] BASIC METABOLIC PANEL (NA, K, CL, CO2, GLUCOSE, BUN, CREATININE, CA) 2020-04-09 08:58:00 Abel West [facility] CBC WITH DIFFERENTIAL 2020-04-09 08:58:[address] [facility] BASIC METABOLIC PANEL (NA, K, CL, CO2, GLUCOSE, BUN, CREATININE, CA) 2020-04-08 10:48:00 Mike Bob [facility] COVID-19 (ID NOW RAPID TESTING) 2020-04-08 05:10:00 Yancy Crump [facility] TROPONIN I 2020-04-08 04:22:00 [facility] EKG-12 LEAD 2020-04-08 04:13:[address] [facility] EKG-12 LEAD 2020-04-08 04:08:34 [facility] URINALYSIS 2020-04-08 01:57:00 Keena Yancy [facility] ADC / LCC - DRUG SCREEN TRIAGE 2020-04-08 01:57:00 Yancy Crump [facility] CREATINE KINASE 2020-04-08 01:18:00 [facility] 2020-04-08 01:18:00 Ke[facility] TROPONIN I 2020-04-08 01:18:00 Janeth Crumpala [facility] HEPATIC FUNCTION PANEL ([id number]) (ALB,T.PRO,BILI T,BU/BC,ALT,AST,ALK PHOS) 2020-04-08 01:18:00 Yancy Crump [facility] BASIC METABOLIC PANEL (NA, K, CL, CO2, GLUCOSE, BUN, CREATININE, CA) 2020-04-08 01:18:00 Yancy Crump [facility] CBC WITH DIFFERENTIAL 2020-04-08 01:18:00 Hugo Crump [facility] EKG-12 LEAD 2020-04-08 00:55:43 Keena Yancy [facility] NOTICE OF PRIVACY PRACTICES 2020-04-08 00:32:15 Doctor Unassigned, [place] [facility] CONSENT/REFUSAL FOR DIAGNOSIS AND TREATMENT 2020-04-08 00:32:00 Doctor Unassigned, [place] [facility] Encounters Start Date/Time End Date/Time Encounter Type Admission Type Attending [facility] Care Department Encounter ID Source 2023-10-15 12:05:00 2023-10-15 15:31:00 Emergency FABIAN FELDMAN [facility]LES [facility] ERT [id number] [facility] 2023-10-15 12:05:00 2023-10-15 15:31:00 Emergency Fabian Lawrence [facility] 1.2.840.114 350.1.13.10 4.2.7.2.686 [id number] [facility] 2023-10-14 20:17:00 2023-10-15 00:42:00 Emergency MILAGROS WATSON [facility] ERT [id number] [facility] 2023-10-14 20:17:00 2023-10-15 00:42:00 Emergency Milagros Courtney [facility] 1.2.840.114 350.1.13.10 4.2.7.2.686 [id number] [facility] 2023-06-16 07:46:00 2023-06-16 14:40:00 Emergency X OSITO HILLMAN [facility] ERT [id number] [facility] 2023-06-16 07:46:00 2023-06-16 14:40:00 Emergency Osito Hillman [facility] 1.2.840.114 350.1.13.10 4.2.7.2.686 [id number] [facility] 2023-06-14 21:15:00 2023-06-15 01:17:00 Emergency Jcarlos Yee [facility] [id number] [facility] 2023-05-01 03:52:00 2023-05-01 06:14:00 Emergency X MILAGROS COURTNEY [facility] ERT [id number] [facility] 2023-05-01 03:52:00 2023-05-01 06:14:00 Emergency Milagros Courtney [facility] 1.2.840.114 350.1.13.10 4.2.7.2.686 [id number] [facility] 2023-03-22 01:19:00 2023-03-22 02:41:00 Emergency X RAMIRO TIPTON [facility] ERT [id number] [facility] 2023-03-22 01:19:00 2023-03-22 02:41:00 Emergency Ramiro Tipton [facility] 1.2.840.114 350.1.13.10 4.2.7.2.686 [id number] [facility] 2023-02-09 18:10:00 2023-02-09 23:44:00 Emergency YANCY PINA [facility] ERT [id number] [facility] 2023-02-09 18:10:00 2023-02-09 23:44:00 Emergency Yancy Crump [facility] 1.2.840.114 350.1.13.10 4.2.7.2.686 [id number] [facility] 2023-02-08 03:22:00 2023-02-08 07:21:00 Emergency X MURTAZA RAMIREZ [facility] ERT [id number] [facility] 2023-02-08 03:22:00 2023-02-08 07:21:00 Emergency Emily Watt Phillip [facility] 1.2.840.114 350.1.13.10 4.2.7.2.686 [id number] [facility] 2023-01-12 21:09:00 2023-01-13 00:30:00 Emergency HARSHAD ARENAS [facility] ERT [id number] [facility] 2023-01-12 21:09:00 2023-01-13 00:30:00 Emergency Harshad Lowe [facility] 1.2.840.114 350.1.13.10 4.2.7.2.686 [id number] [facility] 2021-11-24 07:50:00 2021-11-24 08:22:00 Emergency KENIA BECERRIL [facility] ERT [id number] [facility] 2021-11-24 07:50:00 2021-11-24 08:22:00 Emergency Kenia Alcala [facility] 1.2.840.114 350.1.13.10 4.2.7.2.686 [id number] [facility] 2021-10-23 12:44:00 2021-10-23 13:18:00 Emergency SMILEY NAYLOR [facility] ERT [id number] [facility] 2021-10-23 12:44:00 2021-10-23 13:18:00 Emergency Smiley Welch [facility] 1.2.840.114 350.1.13.10 4.2.7.2.686 [id number] [facility] 2020-04-17 06:30:30 2020-04-18 11:35:00 Emergency Milagros Courtney [facility] 1.2.840.114 350.1.13.10 4.2.7.2.686 [id number] 2020-04-17 06:30:30 2020-04-18 11:35:00 Emergency Milagros Courtney [facility] 1.2.840.114 350.1.13.10 4.2.7.2.686 [id number] [facility] 2020-04-17 06:30:30 2020-04-17 06:30:30 Emergency X MILAGROS COURTNEY [facility] ERT [id number] [facility] 2020-04-14 00:00:00 2020-04-14 00:00:00 Telephone [facility] 1.2.840.114 350.1.13.10 4.2.7.2.686 [id number] 2020-04-14 00:00:00 2020-04-14 00:00:00 Telephone [facility] 1.2.840.114 350.1.13.10 4.2.7.2.686 [id number] [facility] 2020-04-07 19:37:02 2020-04-09 10:30:00 Emergency [facility] 1.2.840.114 350.1.13.10 4.2.7.2.686 [id number] 2020-04-07 19:37:02 2020-04-09 10:30:00 [facility] 1.2.840.114 350.1.13.10 4.2.7.2.686 [id number] [facility] 2020-04-07 19:37:02 2020-04-07 19:37:02 Emergency X YANCY CRUMP [facility] ERT [id number] [facility] Results Test Description Test Time Test [...] PLEURA: The lungs are well-expanded. Diffuse subtle betkirkuuydyucezv-gb-n ud nodules are noted. No distinct consolidation. No pleuralabnormality detected. VISUALIZED UPPER ABDOMEN: The included solid organs and hollow viscusappear within normal limits. OSSEOUS STRUCTURES AND SOFT TISSUES: Mild thoracic spondylosis. The softtissues appear normal. [facility] [id number] 19:22:03* Test Item Value Reference Range Interpretation Comme nts TROPONIN I (test code = 6895838541) 0.010 ng/mL <=0.034 MARIA LUZ (test code [...] of biotin. Lab Interpretation (test code = 26686-9) Normal [facility] [id number] 19:19:41* Test Item Value Reference Range Interpretation Comme nts NT-proBNP (test code = 01264-3) 195 pg/mL <=125 MARIA LUZ (test code = MARIA LUZ) Result Indeterminate-Consid er causes of NT-proBNP elevation other than Heart failure such as acute coronary syndrome, pulmonary embolism, pulmonary hypertension, sepsis, stroke, and renal dysfunction. Lab Interpretation (test code = 51560-4) Abnormal [facility] MET[facility]OLIC PANEL (50267)2023-10-15 19:12:02* Test Item Value Reference Range Interpretation Comme nts NA (test code = 6372933081) 134 mmol/L 135-145 L K (test code = 0941205713) 3.2 mmol/L 3.5-5.0 L CL (test code = 8753404646) 99 mmol/L 98-108 CO2 TOTAL (test code = 6487410947) 21 mmol/L 23-31 L AGAP (test code = 4585108551) 14 2-16 BUN (test code = 4412595410) 19 mg/dL 7-23 GLUCOSE (test code = 9905383040) 121 mg/dL 70-110 H CREATININE (test code = 5874057657) 0.93 mg/dL 0.60-1.25 TOTAL BILI (test code = 8659717348) 0.4 mg/dL 0.1-1.1 CALCIUM (test code = 2266478370) 8.9 mg/dL 8.6-10.6 T PROTEIN (test code = 5526474897) 7.2 g/dL 6.3-8.2 ALBUMIN (test code = 1787263726) 4.0 g/dL 3.5-5.0 ALK PHOS (test code = 2502991904) 76 U/L 34-122 ALTv (test code = 1742-6) 33 U/L 5-50 AST(SGOT) (test code = 2458126523) 37 U/L 13-40 eGFR (test code = 52312-3) 105.1 mL/min/1.73m2 CKD-EPI eGFR (2020). Assuming creatinine has been stable day-to-day for at least three months, the eGFR indicates Category G1 (>= 90 mL/min/1.73 m2) Lab Interpretation (test code = 98855-5) Abnormal [facility] Center[facility]2024-01-08 19:12:02* Test Item Value Reference Range Interpretation Comme nts MAGNESIUM (test code = 0628691748) 1.7 mg/dL 1.7-2.4 Lab Interpretation (test cod e = 07542-7) Normal [facility] Center[facility]osphorus2024-01-08 19:11:42* Test Item Value Reference Range Interpretation Comme nts PHOSPHORUS (test code = 9305981792) 3.2 mg/dL 2.5-5.0 Lab Interpretation (test cod e = 46630-7) Normal [facility] Center[facility]2024-01-08 19:11:21* Test Item Value Reference Range Interpretation Comme nts LIPASE (test code = 5372022014) 76 U/L 0-220 Lab Interpretation (test cod e = 49187-4) Normal [facility] CenterLactic Acid Whole [id number] 19:00:13* Test Item Value Reference Range Interpretation Comme nts LACTIC ACID (test code = 3674471247) 1.50 mmol/L 0.50-2.20 Lab Interpretation (test cod e = 73760-3) Normal [facility] CenterD-[id number] 18:57:23* Test Item Value Reference Range Interpretation Comments D-DIMER (test code = 4197732942) 0.65 See_Comment H [Automated message] The system [...] a diagnosis. Lab Interpretation (test code = 57242-1) Abnormal [facility] CenterTroponin [id number] 06:01:12* Test Item Value Reference Range Interpretation Comme nts TROPONIN I (test code = 4454924195) 0.013 ng/mL <=0.034 MARIA LUZ (test code [...] of biotin. Lab Interpretation (test code = 44929-5) Normal [facility] CenterTrstarr [facility] centernin [id number] 03:28:44* Test Item Value Reference Range Interpretation Comme nts TROPONIN I (test code = 5137084653) 0.011 ng/mL <=0.034 MARIA LUZ (test code [...] of biotin. Lab Interpretation (test code = 76976-6) Normal [facility] with [id number] 03:22:19* Test Item Value Reference Range Interpretation Comme nts WBC (test code = 6690-2) 7.63 See_Comment [Automated [employer]] The system which generated this result transmitted reference range: 4.20 - 10.70 10*3/?L. The reference range was not used to interpret this result as normal/abnormal. RBC (test code = 789-8) 5.08 See_Comment [Automated [employer]] The system which generated this result transmitted [...] g/dL 31.2-35.0 H RDW-SD (test code = 93065-5) 42.4 fL 38.5-51.6 RDW-CV (test code = 788-0) 12.8 % 12.1-15.4 PLT (test code = 777-3) 124 See_Comment L [Automated [employer]] The system which generated this result transmitted reference range: 150 - 328 10*3/?L. The reference range was not used to interpret this result as normal/abnormal. MPV (test code = 88508-7) 11.8 fL 9.8-13.0 IPF % (test code = 1223964172) 8.9 % 1.2-10.7 Platelet count measured by fluorescence method. NRBC/100 WBC (test code = 0996276302) 0.0 See_Comment [Automated [employer]] The system which generated this result transmitted reference range: 0.0 - 10.0 /100 WBCs. The reference range was not used to interpret this result as normal/abnormal. NRBC x10^3 (test code = 0797468559) See_Comment [Automated [employer]] The system which generated this result transmitted reference range: 10*3/?L. The reference range was not used to interpret this result as normal/abnormal. GRAN MAT (NEUT) % (test code = 770-8) 59.7 % IMM GRAN % (test code = 2860087270) 0.30 % LYMPH % (test code = 736-9) 22.5 % MONO % (test code = 5905-5) 17.4 % EOS % (test code = 713-8) 0.0 % BASO % (test code = 706-2) 0.1 % GRAN MAT x10^3(ANC) (test code = 8102074363) 4.55 10*3/uL 1.99-6.95 IMM GRAN x10^3 (test code = 7001397095) 0.00-0.06 LYMPH x10^3 (test code = 731-0) 1.72 10*3/uL 1.09-3.23 MONO x10^3 (test code = 742-7) 1.33 10*3/uL 0.36-1.02 H EOS x10^3 (test code = 711-2) 0.06-0.53 L BASO x10^3 (test code = 704-7) 0.01-0.09 Lab Interpretation (test code = 58462-0) [facility] (98859)2023-10-15 03:16:47* Test Item Value Reference Range Interpretation Comme nts NA (test code = 4334795778) 133 mmol/L 135-145 L K (test code = 0408136050) 3.4 mmol/L 3.5-5.0 L CL (test code = 7193465539) 100 mmol/L 98-108 CO2 TOTAL (test code = 8493054221) 20 mmol/L 23-31 L AGAP (test code = 5157353382) 13 2-16 BUN (test code = 4508681848) 25 mg/dL 7-23 H GLUCOSE (test code = 0590671801) 123 mg/dL 70-110 H CREATININE (test code = 1076003576) 0.95 mg/dL 0.60-1.25 TOTAL BILI (test code = 1047648490) 0.4 mg/dL 0.1-1.1 CALCIUM (test code = 4690776097) 9.0 mg/dL 8.6-10.6 T PROTEIN (test code = 0334818446) 7.4 g/dL 6.3-8.2 ALBUMIN (test code = 9365992266) 4.2 g/dL 3.5-5.0 ALK PHOS (test code = 9276799682) 76 U/L 34-122 ALTv (test code = 1742-6) 32 U/L 5-50 AST(SGOT) (test code = 6325368918) 34 U/L 13-40 eGFR (test code = 94470-8) 102.5 mL/min/1.73m2 CKD-EPI eGFR (2020). Assuming creatinine has been stable day-to-day for at least three months, the eGFR indicates Category G1 (>= 90 mL/min/1.73 m2) Lab Interpretation (test code = 94317-0) Abnormal [facility]XR CHEST 1 [id number] 03:16:37CHEST SINGLE VIEW CLINICAL HISTORY: Chest pain. ORDERING PHYSICIAN: AYSE COURTNEY TECHNIQUE: Frontal view of chest COMPARISON: 02/08/2023 FINDINGS: There is a normal cardiomediastinal silhouette. The pulmonary vascularitydoes not appear congested. The lungs appear clear demonstrating no focalpulmonary consolidation, pleural effusion, or pneumothorax. No acuteosseous process is observed. [facility] CenterLipase2024-01-08 03:16:27* Test Item Value Reference Range Interpretation Comme nts LIPASE (test code = 8054829649) 85 U/L 0-220 Lab Interpretation (test cod e = 63057-9) Normal [facility] CenterTROP-I HIGH [id number] 00:25:00* Test Item Value Reference Range Interpretation [...] and URLs may varyby method. CBC W/O [id number] 22:58:00* Test Item Value Reference Range Interpretation [...] 7.0-9.6 H - CT ABD PELVIS W/O [id number] 22:46:00 [facility] 1980 Sex: M Name: BRUCE OSWALD [facility] : 1980 Age/S: 43 / M [address] [facility] Unit #: [id number] Loc: [place] [address] Phys: Jcarlos Mora MD Acct: [id number] Dis Date: Status: REG ER PHONE #:[phone] Exam Date: 06/14/2023 9737 FAX #: Reason: gen abdominal pain EXAMS: CPT: [id number] CTABD PELVIS W/O CONT 04939 EXAM: - CT ABD PELVIS W/O CONT [...] 1 Signed Report (CONTINUED) Name: BRUCE OSWALD [facility] : 1980 Age/S: 43 / M [address] [facility] Unit #: [id number] Loc: [place] [address] Phys: Jcarlos Mora MD Acct: [id number] Dis Date: Status: REG ER PHONE #: [phone] Exam Date: 06/14/2023 2210 FAX #: Reason: gen abdominal pain EXAMS: CPT: [id number] CT ABD PELVIS W/O CONT 18487 (Continued) Vascular: The aorta is grossly normal [...] Alcala, RT(R)(CT) CTDI:DLP: Trnscb Date/Time: 06/14/2023 (2245) Petr.HV2 Orig Print D/T: S: 06/14/2023 (8668) PAGE 2 Signed ReportBASIC METABOLIC [id number] 22:09:00* Test Item Value Reference Range Interpretation [...] calculation forGFR is based on the CKD-EPI (2020) calculation. This formulais race indifferent and is the recommended formula for GFRby the National Kidney Foundation for Adults.The GFR will not calculate if the sex is unknown or if thepatient's age is <18 years. CREATININE (test code = CREAT) 1.6 MG/DL 0.8-1.3 H CALCIUM (test code = CA) 7.5 MG/DL 8.5-10.1 L HEPATIC FUNCTION [id number] 22:09:00* Test Item Value Reference Range Interpretation [...] code = ALKP) 71 Unit/L 50-136 N [id number] 22:09:00* Test Item Value Reference Range Interpretation Comme nts LIPASE (test code = LIP) 20 Unit/L 114-286 L TROP-I HIGH [id number] 22:09:00* Test Item Value Reference Range Interpretation [...] quantitative results and URLs may varyby method. [id number] 22:09:00* Test Item Value Reference Range Interpretation Comme nts ALCOHOL (test code = ALC) < 3 MG/DL 0-10 N - XR CHEST 1 [id number] 21:55:00 [facility]: BRUCE OSWALD : 1980 Sex: M Name: BRUCE OSWALD [place] : 1980 Age/S: 43 / M [address] [facility] Unit #: [id number] Loc: [place] [address] Phys: Jcarlos Mora MD Acct: [id number] Dis Date: Status: PRE ER PHONE #:[phone] Exam Date: 06/14/20232124 FAX #: Reason: chest pain EXAMS: CPT: [id number] XR CHEST 1V 94145 Fluoro Time: DAP (Gy m2): Air Kerma [...] PAGE 1 Signed Report Name: BRUCE OSWALD [place] : 1980 Age/S: 43 / M [address] [facility] Unit #: [id number] Loc: [place] [address] Phys: Jcarlos Mora MD Acct: [id number] Dis Date: Status: PRE ER PHONE #: [phone] Exam Date: 06/14/20232124 FAX #: Reason: chest pain EXAMS: CPT: [id number] XR CHEST 1 V 49168 Fluoro Time: DAP (Gy m2): Air Kerma (mGy): (Continued) Technologist: Alistair Alcala, RT(R)(CT) Trnscb Date/Time: 06/14/2023 (2154) BarbaraJW22 Orig Print D/T: S: 06/14/2023 (2923) PAGE 2 Signed ReportComplete Metabolic [id number] 09:11:50* Test Item Value Reference Range Interpretation Comme nts NA (test code = 2176793461) 134 mmol/L 135-145 L K (test code = 8114199401) 4.5 mmol/L 3.5-5.0 CL (test code = 7156091270) 102 mmol/L 98-108 CO2 TOTAL (test code = 9266320937) 15 mmol/L 23-31 L AGAP (test code = 7857560660) 17 2-16 H BUN (test code = 1643550819) 29 mg/dL 7-23 H GLUCOSE (test code = 8544432367) 192 mg/dL 70-110 H CREATININE (test code = 9197892088) 1.67 mg/dL 0.60-1.25 H TOTAL BILI (test code = 2245946779) 0.8 mg/dL 0.1-1.1 CALCIUM (test code = 3554396505) 9.9 mg/dL 8.6-10.6 T PROTEIN (test code = 8171064867) 8.8 g/dL 6.3-8.2 H ALBUMIN (test code = 8833373382) 5.4 g/dL 3.5-5.0 H ALK PHOS (test code = 2517591452) 89 U/L 34-122 ALTv (test code = 1742-6) 37 U/L 5-50 AST(SGOT) (test code = 5890679395) 54 U/L 13-40 H eGFR (test code = 2267077201) 45.6 mL/min/1.73m2 MARIA LUZ (test code = [...] imaging tests). Lab Interpretation (test code = 02180-3) Abnormal [facility] CenterLipase, [id number] 09:11:50* Test Item Value Reference Range Interpretation Comme nts LIPASE (test code = 8775677728) 19 U/L 0-220 Lab Interpretation (test cod e = 61460-8) Normal [facility] CenterCB with Jveawyalixqa5675-46-69 08:59:28* Test Item Value Reference Range Interpretation [...] g/dL 31.2-35.0 H RDW-SD (test code = 06171-1) 44.0 fL 38.5-51.6 RDW-CV (test code = 788-0) 13.3 % 12.1-15.4 PLT (test code = 777-3) 150 See_Comment [Automated message] The system which generated this result transmitted reference range: 150 - 328 10*3/?L. The reference range was not used to interpret this result as normal/abnormal. MPV (test code = 95805-6) 12.0 fL 9.8-13.0 NRBC/100 WBC (test code = 3613011432) 0.0 See_Comment [Automated message] The system which generated this result transmitted reference range: 0.0 - 10.0 /100 WBCs. The reference range was not used to interpret this result as normal/abnormal. NRBC x10^3 (test code = 5011462746) See_Comment [Automated message] The system which generated this result transmitted reference range: 10*3/?L. The reference range was not used to interpret this result as normal/abnormal. GRAN MAT (NEUT) % (test code = 770-8) 83.1 % IMM GRAN % (test code = 0349365335) 0.40 % LYMPH % (test code = 736-9) 14.0 % MONO % (test code = 5905-5) 2.3 % EOS % (test code = 713-8) 0.0 % BASO % (test code = 706-2) 0.2 % GRAN MAT x10^3(ANC) (test code = 8682152362) 12.08 10*3/uL 1.99-6.95 H IMM GRAN x10^3 (test code = 0233333579) 0.06 10*3/uL 0.00-0.06 LYMPH x10^3 (test code = 731-0) 2.03 10*3/uL 1.09-3.23 MONO x10^3 (test code = 742-7) 0.33 10*3/uL 0.36-1.02 L EOS x10^3 (test code = 711-2) 0.06-0.53 L BASO x10^3 (test code = 704-7) 0.03 10*3/uL 0.01-0.09 Lab Interpretation (test code = 29901-5) Abnormal [facility] CenterTROPONIN [id number] 13:30:00* Test Item Value Reference Range Interpretation Comme nts TROPONIN I (test code = 9088094024) 0.020 ng/mL See_Comment [Automated message] The system [...] biotin. ? Lab Interpretation (test code = 11418-0) Normal [facility] CenterMagnesium Byjyc1367-57-94 11:02:00* Test Item Value Reference Range Interpretation Comme nts MAGNESIUM (test code = 9551179008) 2.0 mg/dL 1.7-2.4 Lab Interpretation (test cod e = 04567-2) Normal [facility] (NA, K, CL, CO2, GLUCOSE, BUN, CREATININE, CA)2020-04-18 11:02:00* Test Item Value Reference Range Interpretation Comme nts NA (test code = 1241000948) 138 mmol/L 135-145 K (test code = 2136611553) 3.7 mmol/L 3.5-5 CL (test code = 0233144949) 112 mmol/L 98-108 H CO2 TOTAL (test code = 6338775604) 22 mmol/L 23-31 L AGAP (test code = 0211708544) 2-16 BUN (test code = 2286180372) 12 mg/dL 7-23 GLUCOSE (test code = 7234540435) 112 mg/dL 70-110 H CREATININE (test code = 8285939998) 0.96 mg/dL 0.6-1.25 CALCIUM (test code = 3679800558) 8.6 mg/dL 8.6-10.6 eGFR Calculation (Non-) (test code = 0669160903) mL/min/1.73m2 eGFR Calculation () (test code = 2994059812) mL/min/1.73m2 MARIA LUZ (test code = MARIA [...] imaging tests). Lab Interpretation (test code = 34590-7) Abnormal [facility] CenterDrug Screen Panel 3 Nxaao9086-29-70 22:11:00* Test Item Value Reference Range Interpretation Comme nts COMPA S (test code = 1663333895) Negative Negative BENZO S (test code = 5957970047) Negative Negative TRICYCLIC (test code = 3758600141) Negative Negative MARIA LUZ (test code = MARIA LUZ) Serum Drug Screen Cutoff Ranges Barbiturates ? ? - 3 mcg/mLBenzodiazepines ?- 50 ng/mLTCA ?- 300 ng/mL Test developed and characteristics determined by [facility] Laboratory Services. The results are to be used only for medical (i.e., treatment) purposes. Unconfirmed screening results must not be used for non-medical purposes (e.g., employment testing, legal testing). Lab Interpretation (test code = 49588-7) Normal [facility] CenterLIPID PANEL (08780)(TOTAL CHOLESTEROL, TRIGLYCERIDES, HDL)2020-04-17 18:13:00* Test Item Value Reference Range Interpretation Comme nts CHOL (test code = 7570914731) 121 mg/dL 120-200 HDL (test code = 8906098289) 42 mg/dL >40 HDLC RATIO (test code = 3814042239) See_Comment [Automated [employer]] The system which generated this result transmitted reference range: <=5.0. The reference range was not used to interpret this result as normal/abnormal. TRIG (test code = 0334789208) 41 mg/dL 30-170 LDL CHOL (test code = 90232-2) 71 mg/dL See_Comment [Automated [employer]] The system which generated this result transmitted reference range: <=160. The reference range was not used to interpret this result as normal/abnormal. VLDL (test code = 1742149876) 8 mg/dL 5-60 Lab Interpretation (test code = 33730-9) Normal [facility] CenterN-TERMINAL [id number]-[id number] 17:06:00* Test Item Value Reference Range Interpretation Comme nts NT-proBNP (test code = 2728384016) 51 pg/mL See_Comment [Automated message] The system which generated this result transmitted reference range: <=125. The reference range was not used to interpret this result as normal/abnormal. MARIA LUZ (test code = MARIA LUZ) Biotin has been reported to cause a negative bias, interpret results relative to patient's use of biotin. Lab Interpretation (test code = 68572-5) Normal [facility] CenterTHYROID STIMULATING DHYWGTC4303-59-47 16:58:00 * Test Item Value Reference Range Interpretation Comme nts TSH (test code = 4122027750) See_Comment [Automated [employer]] The system which generated this result transmitted reference range: 0.45 - 4.70 mIU/L. The reference range was not used to interpret this result as normal/abnormal. Lab Interpretation (test code = 36450-1) Normal [facility] CenterD-LQLUH7431-80-71 16:56:00* Test Item Value Reference Range Interpretation Comments D-DIMER (test code = 8506424283) <0.27 See_Comment [Automated message] The system which [...] a diagnosis. Lab Interpretation (test code = 94557-1) Normal [facility] CenterProthrombin Time / [id number] 16:43:00* Test Item Value Reference Range Interpretation Comme nts PROTIME PATIENT (test code = 5964-2) See_Comment [Automated [employer]] The system which generated this result transmitted reference range: 12.0 - 14.7 Seconds. The reference range was not used to interpret this result as normal/abnormal. INR (test code = 6301-6) Normal INR <1.1; Warfarin Therapeutic range 2.0 to 3.0 or 2.5 to 3.5, depending upon the indications. Lab Interpretation (test code = 58907-0) Normal [facility] CenterXR CHEST 1 [id number] 16:42:54No acute cardiopulmonary abnormality. Preliminary Report Dictated [...] size. No acute osseous abnormality is present. [facility], Radiant Results Inft - 04/17/2020 11:44 AM [...] reviewed this study and agree with theabove report.[facility] CenterPhosphorus Sbrjg9026-45-72 16:09:00* Test Item Value Reference Range Interpretation Comme nts PHOSPHORUS (test code = 8668293195) 2.5 mg/dL 2.5-5 Lab Interpretation (test cod e = 40906-4) Normal [facility] CenterGlycosylated Hemoglobin (A1C)2020-04-17 15:56:00* Test Item Value Reference Range Interpretation Comme nts HGB A1C (test code = 4548-4) 5.5 % 4-6 MARIA LUZ (test code = MARIA LUZ) %A1C (NGSP) Interpretation (ADA)4.8-5.6 ? ? Normal or (Non-Diabetic Range)5.7-6.4 ? ? Increased Risk (Pre-Diabetic)>6.5 ?Diabetes Indicated Lab Interpretation (test code = 65440-7) Normal [facility] CenterTROPONIN [id number] 15:39:00* Test Item Value Reference Range Interpretation Comme nts TROPONIN I (test code = 2891377132) 0.031 ng/mL See_Comment [Automated message] The system [...] biotin. ? Lab Interpretation (test code = 57555-1) Normal [facility] CenterCOVID-19 (ID NOW RAPID TESTING)2020-04-17 14:00:00* Test Item Value Reference Range Interpretation Comme nts SARS-CoV-2 Rapid ID NOW (test code = 41686-8) Not Detected Not Detected MARIA LUZ (test code = MARIA LUZ) ID NOW COVID-19 As say is an isothermal nucleic acid amplification test intended for the qualitative detection of nucleic acid from SARS-CoV-2 viral RNA in nasopharyngeal (TELLER SUPERVISOR) specimens. It is used under Emergency Use [...] clinically indicated. Lab Interpretation (test code = 34910-1) Normal [facility] CARE VENOUS BLOOD UGH2071-09-02 13:25:00 * Test Item Value Reference Range Interpretation Comme nts PH (test code = 0020677660) 7.32-7.42 PCO2 NAS (test code = 7477106216) See_Comment L [Automated messa ge] The system which generated this result transmitted reference range: 41 - 51 mmHg. The reference range was not used to interpret this result as normal/abnormal. PO2 NAS (test code = 9967371893) See_Comment [Automated messa ge] The system which generated this result transmitted reference range: 25 - 40 mmHg. The reference range was not used to interpret this result as normal/abnormal. HCO3 NAS (test code = 2504897281) See_Comment L [Automated messa ge] The system which generated this result transmitted reference range: 24 - 28 mEq/L. The reference range was not used to interpret this result as normal/abnormal. AC VBE(BEAKER) (test code = 8423979593) mEq/L Lab Interpretation (test code = 21333-0) Abnormal [facility] CenterCREATINE [id number] 13:01:00* Test Item Value Reference Range Interpretation Comme nts CK (test code = 2686970613) 174 U/L 33-194 Lab Interpretation (test cod e = 07709-6) Normal [facility] CenterCBC WITH [id number] 12:32:00* Test Item Value Reference Range Interpretation [...] g/dL 31.2-35 H RDW-SD (test code = 07833-9) 43.5 fL 38.5-51.6 RDW-CV (test code = 788-0) 12.9 % 12.1-15.4 PLT (test code = 777-3) See_Comment [Automated [employer]] The system which generated this result transmitted reference range: 150 - 328 10*3/?L. The reference range was not used to interpret this result as normal/abnormal. MPV (test code = 93946-2) 11.6 fL 9.8-13 NRBC/100 WBC (test code = 5011815592) See_Comment [Automated [employer]] The system which generated this result transmitted reference range: 0.0 - 10.0 /100 WBCs. The reference range was not used to interpret this result as normal/abnormal. NRBC x10^3 (test code = 5128146510) <0.01 See_Comment [Automated [employer]] The system which generated this result transmitted reference range: 10*3/?L. The reference range was not used to interpret this result as normal/abnormal. GRAN MAT (NEUT) % (test code = 770-8) 43.3 % IMM GRAN % (test code = 0437594354) 0.60 % LYMPH % (test code = 736-9) 46.1 % MONO % (test code = 5905-5) 8.3 % EOS % (test code = 713-8) 1.3 % BASO % (test code = 706-2) 0.4 % GRAN MAT x10^3(ANC) (test code = 6748720825) 5.12 10*3/uL 1.99-6.95 IMM GRAN x10^3 (test code = 2214198774) 0.07 10*3/uL 0-0.06 H LYMPH x10^3 (test code = 731-0) 5.45 10*3/uL 1.09-3.23 H MONO x10^3 (test code = 742-7) 0.98 10*3/uL 0.36-1.02 EOS x10^3 (test code = 711-2) 0.15 10*3/uL 0.06-0.53 BASO x10^3 (test code = 704-7) 0.05 10*3/uL 0.01-0.09 Lab Interpretation (test code = 97373-1) Abnormal [facility] CenterSILVERIO [id number] 12:29:00* Test Item Value Reference Range Interpretation Comme nts TROPONIN I (test code = 6289899385) 0.038 ng/mL See_Comment H [Automated message] The [...] biotin. ? Lab Interpretation (test code = 77233-1) Abnormal [facility] CenterCOMP. METABOLIC PANEL (07692)2020-04-17 12:18:00* Test Item Value Reference Range Interpretation Comme nts NA (test code = 4829590538) 135 mmol/L 135-145 K (test code = 8526119803) 3.6 mmol/L 3.5-5 CL (test code = 6304623048) 106 mmol/L 98-108 CO2 TOTAL (test code = 8589920555) 16 mmol/L 23-31 L AGAP (test code = 1684167607) 2-16 BUN (test code = 9642012133) 29 mg/dL 7-23 H GLUCOSE (test code = 3058250834) 157 mg/dL 70-110 H CREATININE (test code = 2954367527) 1.53 mg/dL 0.6-1.25 H TOTAL BILI (test code = 9046939547) 0.4 mg/dL 0.1-1.1 CALCIUM (test code = 4581426258) 9.5 mg/dL 8.6-10.6 T PROTEIN (test code = 9998209192) 8.3 g/dL 6.3-8.2 H ALBUMIN (test code = 1343255260) 4.7 g/dL 3.5-5 ALK PHOS (test code = 3973541357) 74 U/L 34-122 ALTv (test code = 1742-6) 29 U/L 5-50 AST(SGOT) (test code = 9486783485) 28 U/L 13-40 eGFR Calculation (Non-) (test code = 7507222433) mL/min/1.73m2 eGFR Calculation () (test code = 0294126984) mL/min/1.73m2 MARIA LUZ (test code = MARIA [...] imaging tests). Lab Interpretation (test code = 83943-8) Abnormal [facility] CenterLIPASE, [id number] 12:17:00* Test Item Value Reference Range Interpretation Comme nts LIPASE (test code = 9484276890) 102 U/L 0-220 Lab Interpretation (test cod e = 91611-4) Normal [facility] CenterBASI METABOLIC PANEL (NA, K, CL, CO2, GLUCOSE, BUN, CREATININE, CA)2020-04-09 11:06:00* Test Item Value Reference Range Interpretation Comme nts NA (test code = 5273271640) 139 mmol/L 135-145 K (test code = 7694270053) 4.1 mmol/L 3.5-5 CL (test code = 9769565345) 111 mmol/L 98-108 H CO2 TOTAL (test code = 7159379802) 24 mmol/L 23-31 AGAP (test code = 5515868417) 2-16 BUN (test code = 0945383290) 14 mg/dL 7-23 GLUCOSE (test code = 8420926529) 98 mg/dL 70-110 CREATININE (test code = 5402006877) 0.90 mg/dL 0.6-1.25 CALCIUM (test code = 9658924812) 8.5 mg/dL 8.6-10.6 L eGFR Calculation (Non-) (test code = 9208628243) mL/min/1.73m2 eGFR Calculation () (test code = 6078257264) mL/min/1.73m2 MARIA LUZ (test code = MARIA [...] imaging tests). Lab Interpretation (test code = 25570-3) Abnormal [facility] WITH [id number] 10:49:00* Test Item Value Reference Range Interpretation Comme nts WBC (test code = 6690-2) See_Comment H [Automated [employer]] The system which generated this result transmitted reference range: 4.20 - 10.70 10*3/?L. The reference range was not used to interpret this result as normal/abnormal. RBC (test code = 789-8) See_Comment L [Automated [employer]] The system which generated this result transmitted [...] 34.6 g/dL 31.2-35 RDW-SD (test code = 66641-6) 47.0 fL 38.5-51.6 RDW-CV (test code = 788-0) 13.7 % 12.1-15.4 PLT (test code = 777-3) See_Comment L [Automated messa ge] The system which generated this result transmitted reference range: 150 - 328 10*3/?L. The reference range was not used to interpret this result as normal/abnormal. MPV (test code = 77346-3) 12.2 fL 9.8-13 NRBC/100 WBC (test code = 3498803171) See_Comment [Automated [employer]age] The system which generated this result transmitted reference range: 0.0 - 10.0 /100 WBCs. The reference range was not used to interpret this result as normal/abnormal. NRBC x10^3 (test code = 5020203605) <0.01 See_Comment [Automated messa ge] The system which generated this result transmitted reference range: 10*3/?L. The reference range was not used to interpret this result as normal/abnormal. GRAN MAT (NEUT) % (test code = 770-8) 61.9 % IMM GRAN % (test code = 5142044040) 0.40 % LYMPH % (test code = 736-9) 30.3 % MONO % (test code = 5905-5) 6.9 % EOS % (test code = 713-8) 0.2 % BASO % (test code = 706-2) 0.3 % GRAN MAT x10^3(ANC) (test code = 9508759366) 7.44 10*3/uL 1.99-6.95 H IMM GRAN x10^3 (test code = 8436787468) 0.05 10*3/uL 0-0.06 LYMPH x10^3 (test code = 731-0) 3.64 10*3/uL 1.09-3.23 H MONO x10^3 (test code = 742-7) 0.83 10*3/uL 0.36-1.02 EOS x10^3 (test code = 711-2) <0.03 0.06-0.53 L BASO x10^3 (test code = 704-7) 0.04 10*3/uL 0.01-0.09 Lab Interpretation (test code = 07934-6) Abnormal [facility] CenterCREATINE [id number] 10:38:00* Test Item Value Reference Range Interpretation Comme nts CK (test code = 1446640774) 569 U/L 33-194 H Lab Interpretation (test cod e = 89452-0) Abnormal [facility] CenterBASI METABOLIC PANEL (NA, K, CL, CO2, GLUCOSE, BUN, CREATININE, CA)2020-04-08 11:23:00* Test Item Value Reference Range Interpretation Comme nts NA (test code = 8484489061) 136 mmol/L 135-145 K (test code = 5219403771) 5.2 mmol/L 3.5-5 H CL (test code = 6300591349) 107 mmol/L 98-108 CO2 TOTAL (test code = 9593022838) 22 mmol/L 23-31 L AGAP (test code = 7598377324) 2-16 BUN (test code = 4836359243) 24 mg/dL 7-23 H GLUCOSE (test code = 7249303695) 132 mg/dL 70-110 H CREATININE (test code = 7027810450) 1.30 mg/dL 0.6-1.25 H CALCIUM (test code = 1172983939) 8.8 mg/dL 8.6-10.6 eGFR Calculation (Non-) (test code = 7942300976) mL/min/1.73m2 eGFR Calculation () (test code = 1411728209) mL/min/1.73m2 MARIA LUZ (test code = MARIA [...] imaging tests). Lab Interpretation (test code = 07125-9) Abnormal [facility] CenterCOVID-19 (ID NOW RAPID TESTING)2020-04-08 05:54:00* Test Item Value Reference Range Interpretation Comme nts SARS-CoV-2 Rapid ID NOW (test code = 79122-4) Not Detected Not Detected MARIA LUZ (test code = MARIA LUZ) ID NOW COVID-19 As say is an isothermal nucleic acid amplification test intended for the qualitative detection of nucleic acid from SARS-CoV-2 viral RNA in nasopharyngeal ([employer]) specimens. It is used under Emergency Use [...] clinically indicated. Lab Interpretation (test code = 74400-1) Normal [facility] [id number] 05:01:00* Test Item Value Reference Range Interpretation Comme nts TROPONIN I (test code = 4511955614) <0.012 See_Comment [Automated message] The system which [...] biotin. ? Lab Interpretation (test code = 19434-5) Normal [facility] G3472-30-85 04:38:00* Test Item Value Reference Range Interpretation Comme nts TROPONIN I (test code = 5458010321) <0.012 See_Comment [Automated message] The system which [...] biotin. ? Lab Interpretation (test code = 96338-1) Normal [facility] (NA, K, CL, CO2, GLUCOSE, BUN, CREATININE, CA)2020-04-08 04:28:00* Test Item Value Reference Range Interpretation Comme nts NA (test code = 5923192045) 136 mmol/L 135-145 K (test code = 7136867895) 4.3 mmol/L 3.5-5 CL (test code = 1543575088) 97 mmol/L 98-108 L CO2 TOTAL (test code = 3100650931) 22 mmol/L 23-31 L AGAP (test code = 9430410426) 2-16 H BUN (test code = 1792518628) 31 mg/dL 7-23 H GLUCOSE (test code = 2662766656) 163 mg/dL 70-110 H CREATININE (test code = 7461469557) 2.80 mg/dL 0.6-1.25 H CALCIUM (test code = 0876161333) 10.9 mg/dL 8.6-10.6 H eGFR Calculation (Non-) (test code = 2173167478) mL/min/1.73m2 eGFR Calculation () (test code = 5666377564) mL/min/1.73m2 MARIA LUZ (test code = MARIA [...] imaging tests). Lab Interpretation (test code = 19943-7) Abnormal [facility] (ALB, T.PRO, BILI T, BU/BC, ALT, AST, ALK PHOS)2020-04-08 04:28:00* Test Item Value Reference Range Interpretation Comme nts TOTAL BILI (test code = 5642672684) 0.6 mg/dL 0.1-1.1 BILI UNCON (test code = 3467977914) 0.6 mg/dL 0.1-1.1 BILI CONJ (test code = 3978537641) 0.0 mg/dL 0-0.3 T PROTEIN (test code = 7124004306) 10.4 g/dL 6.3-8.2 H ALBUMIN (test code = 7580718286) 5.8 g/dL 3.5-5 H ALK PHOS (test code = 8892890288) 104 U/L 34-122 ALTv (test code = 1742-6) 35 U/L 5-50 AST(SGOT) (test code = 6649093796) 41 U/L 13-40 H Lab Interpretation (test cod e = 71292-0) Abnormal [facility] CenterLipase Elmcg9962-94-08 04:28:00* Test Item Value Reference Range Interpretation Comme nts LIPASE (test code = 6077322713) 22 U/L 0-220 Lab Interpretation (test cod e = 85969-4) Normal [facility] CenterCREATINE XMFWPI9277-11-91 04:27:00* Test Item Value Reference Range Interpretation Comme nts CK (test code = 5218092959) 440 U/L 33-194 H Lab Interpretation (test cod e = 06240-9) Abnormal [facility] CenterCBC WITH JIAOKCXSVRHR1391-01-58 04:16:00* Test Item Value Reference Range Interpretation [...] g/dL 31.2-35 H RDW-SD (test code = 76144-5) 44.6 fL 38.5-51.6 RDW-CV (test code = 788-0) 13.4 % 12.1-15.4 PLT (test code = 777-3) See_Comment [Automated message] The system which generated this result transmitted reference range: 150 - 328 10*3/?L. The reference range was not used to interpret this result as normal/abnormal. MPV (test code = 42747-4) 12.7 fL 9.8-13 NRBC/100 WBC (test code = 8261268259) See_Comment [Automated message] The system which generated this result transmitted reference range: 0.0 - 10.0 /100 WBCs. The reference range was not used to interpret this result as normal/abnormal. NRBC x10^3 (test code = 4493500909) <0.01 See_Comment [Automated message] The system which generated this result transmitted reference range: 10*3/?L. The reference range was not used to interpret this result as normal/abnormal. GRAN MAT (NEUT) % (test code = 770-8) 81.0 % IMM GRAN % (test code = 2373139138) 0.80 % LYMPH % (test code = 736-9) 14.8 % MONO % (test code = 5905-5) 2.9 % EOS % (test code = 713-8) 0.1 % BASO % (test code = 706-2) 0.4 % GRAN MAT x10^3(ANC) (test code = 5913589682) 12.79 10*3/uL 1.99-6.95 H IMM GRAN x10^3 (test code = 3426560038) 0.12 10*3/uL 0-0.06 H LYMPH x10^3 (test code = 731-0) 2.34 10*3/uL 1.09-3.23 MONO x10^3 (test code = 742-7) 0.46 10*3/uL 0.36-1.02 EOS x10^3 (test code = 711-2) <0.03 0.06-0.53 L BASO x10^3 (test code = 704-7) 0.06 10*3/uL 0.01-0.09 Lab Interpretation (test code = 32100-0) Abnormal [facility] / [facility] - DRUG SCREEN PXEJMX9577-31-64 02:25:00* Test Item Value Reference Range Interpretation Comme nts BENZO U (test code = 4735239016) Negative Negative COMPA U (test code = 9047754104) Negative Negative AMPHET (test code = 8252691092) Negative Negative THC (test code = 3336839260) Negative Negative METHADONE (test code = 2547122152) Negative Negative Meth U (test code = 1514643377) Presumptive Positive Negative A OPIATES (test code = 4523666001) Negative Negative Cocaine Metabolite (test code = 5562970600) Presumptive Positive Negative A PROPOXY (test code = 0967761998) Negative Negative Tric U (test code = 8565344909) Negative Negative PCP (test code = 4047232398) Negative Negative OXYCOD (test code = 7947446942) Negative Negative MARIA LUZ (test code = [...] legal testing). Lab Interpretation (test code = 20861-5) Abnormal [facility] CenterUrinalysis2020-07-02 02:19:00* Test Item Value Reference Range Interpretation Comme nts APPEARANCE (test code = 5655430476) Cloudy Clear A COLOR (test code = 1821123334) Reyna Yellow A PH (test code = 2554875759) 4.8-8.0 SP GRAVITY (test code = 0941355635) 1.003-1.030 GLU U QUAL (test code = 6437393702) Normal Normal BLOOD (test code = 6863723998) Negative Negative INTERFERENCE FRO M ASCORBIC ACID MAY CAUSE FALSE NEGATIVE RESULT KETONES (test code = 0404501850) 5 mg/dL Negative A PROTEIN (test code = 2887-8) 100 mg/dL Negative A UROBILIN (test code = 4198219657) 2.0 mg/dL Normal A BILIRUBIN (test code = 9430651520) Negative Negative NITRITE (test code = 9752435584) Negative Negative [place] (test code = 8450313390) Negative Negative RBC/HPF (test code = 4389588087) <1 See_Comment [Automated messa ge] The system which generated this result transmitted reference range: 0 - 3 HPF. The reference range was not used to interpret this result as normal/abnormal. WBC/HPF (test code = 5482844782) See_Comment [Automated messa ge] The system which generated this result transmitted reference range: 0 - 5 HPF. The reference range was not used to interpret this result as normal/abnormal. BACTERIA (test code = 4301032472) Few Negative A MUCOUS (test code = 1751588142) Moderate Negative LPF A SQ EPITH (test code = 3816303431) HPF Lab Interpretation (test code = 60492-1) Abnormal [facility] Notes Date/Time Note Provider Source 2023-10-15 15:30:18 4818-72-65W38:30:18 Patient feeling better at this time. Take meds as prescribed. Follow up with pcp. Return if worsening condition. 81435-2Yicgwqnji department OdhmOW0859-26-02J82:30:56Emergency department NoteTXT1.2.840.356874.1.13.104.2.7.2.7278 79|[id number] for patient higr76861-3FjyvCVAMSNNQYMPYiiksbcww C-CDA narrative ohgr472029142Nwngsyb D Wierzbicki RNUTMBUTMB - [address] TtnqRthlkcgwsMrcmozqnmAQWG5299738095TEEMT SZWAVEGJLBRCZQVET4267-06-37A05:30:561.2.8 40.960037.1.72.3.15|1.2.840.590950.1.13.1 04.2.7.2.727879_[id number] Robert Lorenz RN [facility] 2023-10-15 13:10:01 2586-79-25F29:10:[address] [address]-1Majddqazf department IssdOM6053-66-56U95:10:10[facility] NoteTXT1.2.840.518982.1.13.104.2.7.2.7278 79|[id number] for patient tlri55428-0FfaeIGIWFLAHPXEUibxpfcjv C-CDA narrative text[address] NqflSelzqcgpfSuznmaxzxFDSX0487429180PSAYT UOSXHEGGTCJYDGKZC6012-39-76C14:10:101.2.8 40.627936.1.72.3.15|1.2.840.229772.1.13.1 04.2.7.2.727879_[id number] [facility] 2023-10-15 12:03:24 1777-27-12A21:03:24 Patient arrived via ems c/o of left chest pressure feeling someone sitting on his chest nonradiating pain and complaining of shortness of breath. Patient was seen here last night for the same reasons. Diagnosed with the flu several days ago and has not taken any medications prescribed. [facility] give 1 nitro, 325 mg aspirin, 20 right acHx: HTN 58647-5Cphudkdbf department Triage pyszHK6655-23-93G37:06:09[facility] Triage noteTXT1.2.840.242534.1.13.104.2.7.2.7278 79|[id number] for patient xzvw68119-1Laudblzyu department NoteLNNARRATIVEFormatted C-CDA narrative niwq137082056Hswbtprk M Felix RN[address] AzyiMqmvfkjtdBanldlxcyNSTU2341821135JGPSR HPRDAHEQSECYFHLBH7147-08-27Q21:06:091.2.8 40.327139.1.72.3.15|1.2.840.344222.1.13.1 04.2.7.2.727879_[id number] Chichi Marcano RN [facility] 2023-10-15 12:01:00 4527N61:01:00Associated Order(s): EKG-12 Lead ROUTINE ONCEPre-Procedure Diagnose(s): Chest pain, unspecified typePost-Procedure Diagnose(s): Chest pain, unspecified type [facility] Emergency Department NotePatient Name: Bruce OswaldDate of : 1980 43 year old maleTreatment Room: Room/bed info not foundMedical Record Number: [id number] Care Physician: PATIENT DOES NOT HAVE A PCPPatient Escorted by: Self [9]Mode of Arrival: EMS - [facility] ([place]) [43]EMS Treatment Prior to ED Arrival:Travel and [...] unable to get to the pharmacy to pick up man any medications. States he feels thirsty. No recent long travel ,no broken bones, no cancer, no personal or family history of blood clots. No unilateral leg pain or swellingHistory provided by: Patient and medical recordsLanguage interpreter and translator used: Rigoberto Medical History/Immunizations:History reviewed. No pertinent [...] are negative.Physical Exam:ED Triage VitalsWeightActual or estimatedHeightBPPulseRespTempTemp pzjIfW1Upvscemn onPhysical ExamVitals and nursing note reviewed.Constitutional:General: He [...] this encounter.First Provider Eval:ED EventsDate/Time Event User Pqbejuqh51/08/24 120 Medical Screening Begins FABIAN LAWRENCE MD --10/15/23 [...] unable to get to the pharmacy to pick up man any medications. States he feels thirsty.Differential includes [...] ED Physician in the absence of a profile saw operator: yesPrevious ECG:Previous ECG: Compared to currentComparison ECG [...] on fileFollow-up:Electronically signed by:Fabian Lawrence MD10/15/23 1401 30209-2Wroatzexp Emergency department GjtuCQ2078-77-62R00:01:31Physician Emergency department NoteTXT1.2.840.591070.1.13.104.2.7.2.7278 79|[id number] for patient tuzr14598-6Wqovbrzmz department NoteLNNARRATIVEFormatted C-CDA narrative textUT51 [address] StreetSymrUngnvftruNifinjttxOWCY0058971992RCVEM XMSPFPLLUFZPYXEVT6595-21-65Y95:01:311.2.8 40.886776.1.72.3.15|1.2.840.674162.1.13.1 04.2.7.2.727879_[id number] [facility] 2023-10-15 00:33:35 1525-83-92P91:33:35 PT D/C home. GCS15, VS stable. Given D/C paperwork. Pt ambulatory at time of discharge. Pt educated on med usage, follow up care, s/s worsening condition, need for hydration. Pt verbalized understanding.Pt ambulated from ED in NAD. 33553-7Aiatanvug department KzcoZL0142-64-93C09:33:48[facility] NoteTXT1.2.840.577838.1.13.104.2.7.2.7278 79|[id number] for patient eblm97875-2MpkpDFYWODIMKSWVpmbntumf C-CDA narrative uwzd770450822Hxfu E Linkes RNUT[address] [id number] NFQSOKEAHELARVKBO6252-29-42C11:33:481.2.8 40.033074.1.72.3.15|1.2.840.478907.1.13.1 04.2.7.2.727879_[id number] Tasneem E Dat MAURICIO [facility] 2023-10-14 20:17:52 6646-45-80V02:17:52 Vomiting for 2-3 day, "can't keep anything [...] was doing "powder" cocaine 3 days ago. 80768-2Omqrygncg department Triage osvfWW2858-32-49P98:31:23[facility] Triage noteTXT1.2.840.704968.1.13.104.2.7.2.7278 79|[id number] for patient xvgj60185-1Chlgxwiyv department NoteLNNARRATIVEFormatted C-CDA narrative olhj636063177VyrgdYessi Johnston RNUT[id number] MOQJNFGSXOKNOJICB9139-04-32A86:31:231.2.8 40.977667.1.72.3.15|1.2.840.215977.1.13.1 04.2.7.2.727879_[id number] Yessi Johnston RN [facility] 2023-10-14 20:13:00 1944-98-84Z07:13:00 [facility] Emergency Department NotePatient Name: Bruce OswaldDate of : 1980 43 year old maleTreatment Room: ID515 [address] StreetDI8Bdvudks Record Number: [id number] Care Physician: PATIENT DOES NOT HAVE A PCPPatient Escorted by: Self [9]Mode of Arrival: EMS - [facility] ([place]) [43]EMS Treatment Prior to ED Arrival:Travel and [...] by: Medical records, patient and EMS personnelLanguage interpreter and translator used: NoChest PainPain location: L chest and [...] or active process of the chest.RL: 3708AFC: 26142TE: Y Lab Results:Lab ResultsCBC WITH DIFF - [...] <0.03 0.01 - 0.09 10*3/uLCOMP. METABOLIC PANEL (84239) - AbnormalNA 133 (*) 135 - 145 [...] U/LAST(SGOT) 34 13 - 40 U/LeGFR 102.5 mL/min/1.57x1HWTNAADK I - NormalTROPONIN I 0.011 <=0.034 ng/mLLIPASE - NormalLIPASE 85 0 - 220 U/LTROPONIN I - NormalTROPONIN I 0.013 <=0.034 ng/mLOrders and Treatments:Orders Placed This EncounterProceduresXR CHEST 1 VWTroponin ILipaseCbc with DiffComp. Metabolic Panel (16145)Troponin IOrders Placed This EncounterMedicationsondansetron (ZOFRAN (PF)) injection 4 mghydralAZINE (APRESOLINE) injection 10 mghydralAZINE (APRESOLINE) injection 10 mghydrALAZINE 10 mg tabletFirst Provider Eval:ED EventsDate/Time Event User Buqbrnop30/07/242016 Medical Screening Begins MILAGROS COURTNEY MD --10/14/232016 [...] fileFollow-up:Contact information for follow-upRamses Wiseman MDSpecialty: IM-CARDIOVASCULAR DISEASELOS [facility] AND AQGEJRQ[address] [place], [place] [address]Phone: Zaugqfekokdjwx signed by:Milagros Courtney MD10/15/23 0039 66003-4Xrowrqgkb Emergency department LorwYR5522-17-64Y40:39:28Physician Emergency department NoteTXT1.2.840.617859.1.13.104.2.7.2.7278 79|[id number] for patient yekw99494-9Rnekyoyhe department NoteLNNARRATIVEFormatted C-CDA narrative textUT64 [id number] DIJGKZFVOZTLKCZIT2901-11-16Y69:39:281.2.8 40.606669.1.72.3.15|1.2.840.055462.1.13.1 04.2.7.2.727879_[id number] [facility] 2023-06-16 14:39:02 7565-64-46W51:39:02 Pt given printed and verbal discharge instructions [...] with steady gait, in no apparent distress. 22037-9Byyrjzgvd department MtpwJO0481-99-40G73:40:03[facility] department NoteTXT1.2.840.629046.1.13.104.2.7.2.7278 79|[id number] for patient ryem32082-6CvwcKJ580384613Qlkzyk M Herrera RN[id number] GGOIUELQDTAARJMAS9085-27-54T58:40:031.2.8 40.420049.1.72.3.15|1.2.840.285803.1.13.1 04.2.7.2.727879_[id number] Wilda Lomax RN [facility] 2023-06-16 14:09:01 1649-58-89R93:09:01 Patient given water, tolerated well. 60198-3Zycyqairh department VveuLK9954-08-19G01:09:18[facility] department NoteTXT1.2.840.703808.1.13.104.2.7.2.7278 79|[id number] for patient amjf02318-8JjxrBJJLMHFBRU[id number] GBJUONIJCUQRUVFBU4187-66-14Z57:09:181.2.8 40.926926.1.72.3.15|1.2.840.606533.1.13.1 04.2.7.2.727879_[id number] [facility] 2023-06-16 11:03:50 1471-83-03F95:03:50 Report received from LULY Robledo 69022-5Ptnvxznzg department TmeqKL5217-15-59H30:04:30Located Within [facility] department NoteTXT1.2.840.961390.1.13.104.2.7.2.7278 79|[id number] for patient tksy00216-6ZaowBGPKHNFFKI[id number] PJUGJFBLJKIWVAXKU4433-88-08Y30:04:301.2.8 40.122727.1.72.3.15|1.2.840.128059.1.13.1 04.2.7.2.727879_[id number] [facility] 2023-06-16 07:43:30 0495P63:43:30 Pt c/o generalized abdominal pain accompanied by nausea that started 2 days ago. Was seen at [facility] yesterday for same complaint, given prescriptions but patient states that he did not take them. Reports no relief in symptoms. Received 4mg Zofran [facility] by EMS. 08714-9Zvjvppfes department Triage iguqYD0721-09-90Z07:45:18Emer[facility] centercy department Triage noteTXT1.2.840.740920.1.13.104.2.7.2.7278 79|[id number] for patient vsph45640-9Oonmlwcpn department DzlzXX643414224Qzrhn N Dewoody RN[address] [id number] AYUDUIJHXVWOANUCC0334-19-07M99:45:181.2.8 40.248466.1.72.3.15|1.2.840.528032.1.13.1 04.2.7.2.727879_[id number] Madeleine Mullen RN [facility] 2023-06-14 21:17:00 EB1145668490QGKrlFe+xWa8HCSQwN2PjyOBsmvW B qET+gpQl+XXyWDCZD9GjD3hFEYJF31vM0iq9944-7 06-14T21:17:00 [facility] ([facility])EMERGENCY PROVIDER REPORTREPORT#:[id number] REPORT STATUS: SignedDATE:06/14/23 TIME:2116 PATIENT: BRUCE OSWALD UNIT #: [id number]#: [id number] ROOM/BED:: 81 AGE: 43 SEX: M PCP [...] Ox 97 06/14 2121 B/P 184/96 06/14 212 B/P Mean 125 06/14 2121 O2 Delivery [...] Image Not Available]Laboratory Tests: 06/14 06/14 06/14 6760 2247 2124 Chemistry Sodium (134 - 147 mmol/L) [...] Present ---- PERC: Age >= 50HR >= 329UiT0 < 95%Unilateral Leg SwellingHemoptysisRecent Trauma/SurgeryPrior PE/DVTHormone Use [...] Early Discharge in Acute Chest Pain from [employer] on 06/14/2023 All calculations should be rechecked [...] STA 06/14 2120 DC 06/14 IV 06/14 Gastrointestinal Drugs Sig/Sugey Start time Last Medication Dose Route Stop Time Status Admin Metoclopramide HCl 10 MG X1ED STA 06/14 2220 DC 06/14 IV 06/14 Ondansetron HCl 4 MG X1ED STA 06/14 [...] the earliest appointment for: Dr Jet Ferrer[address] [place], [place] [address]Dmbbt: [email or web address] Return within 24-36 hrs if you have worsening abdominal pain, vomiting. at 0048 RPT #: [id number] OF REPORTEDEmergency department sybrjl3166-46-49L13:17:00L.SZPS44593686-0 253AVAvailable for patient ayemWRKWICZNCWQSVG7013-00-32W43:48:47 [facility] 2023-05-01 06:10:19 3990-67-41T60:10:19 Pt given printed and verbal discharge instructions [...] w/d, pt leaving in no apparent distress, 42606-1Ucexyknee department QnyqGW0581-46-17T22:13:59[facility] department NoteTXT1.2.840.081870.1.13.104.2.7.2.7278 79|[id number] for patient [address] RxciIdrdohninArabbalrfRTTW6082810168DAYGS THPNJCPJZERJPYJDI0643-24-32Z90:13:591.2.8 40.784042.1.72.3.15|1.2.840.824606.1.13.1 04.2.7.2.727879_[id number] [facility] 2023-05-01 03:46:44 0070-14-46Y23:46:44 CC: Pt reports toothache x 2 wks [...] ext without difficulty, amb with steady gait 26872-6Xcdbeclan department Triage wywcWW5162-20-38F61:48:45[facility] Triage noteTXT1.2.840.539949.1.13.104.2.7.2.7278 79|[id number] for patient [address] QxziUmkvaswxiThebudnhoXIGT8646817450KJZGC WVEICOFRQZVPHPMLD8839-91-63L34:48:451.2.8 40.999600.1.72.3.15|1.2.840.223904.1.13.1 04.2.7.2.727879_[id number] [facility] 2023-05-01 03:43:00 0065-47-50O06:43:00 [facility] Emergency Department NotePatient Name: Bruce OswaldDate of : 1980 42 year old maleTreatment Room: [place] [address]Medical Record Number: [id number] Care Physician: PATIENT DOES NOT HAVE A PCPPatient Escorted by: Self [9]Mode of Arrival: Personal means [1]EMS Treatment Prior to ED Arrival:[facility] treatment: None Travel and Exposure Screening:SymptomsDoes patient [...] mild swelling to face,History provided by: PatientLanguage interpreter and translator used: No Dental ProblemLocation: Upper and lowerLower [...] MD -- ED COURSEDiagnosis/Impression as of 05/01/23 5969 Toothache Procedures: ProceduresMDM:Medical Decision MakingBruce Oswald is [...] Courtney MD05/01/23 0558 Milagros Courtney MD05/01/23 0558 37364-2Gndptxwdb Emergency department WxedSD2764-02-73P55:58:50Physician Emergency department NoteTXT1.2.840.232029.1.13.104.2.7.2.7278 79|[id number] for patient [address] XjnzOmyhilhbuAgvdtxbdzUVRK5209432030EQJBI TRXWTSWLUGIHBGJPQ8016-22-93N68:58:501.2.8 40.479102.1.72.3.15|1.2.840.421492.1.13.1 04.2.7.2.727879_[id number] [facility]
[2024-04-12] MEDS ORDERED: NA CHLORIDE 0.9% 1,000 ML ONE (16:17)
[2024-04-12 16:44] LABS: Absolute Basophils 0.1 K/uL (0-0.5); Absolute Lymphocytes (CBC) 1.2 K/uL (0.7-4.9); Absolute Monocytes 0.3 K/uL (0.1-1.3); Basophils % 0.9 % (0-1.3); Eosinophils % 0.1 % (0-4.4); Hematocrit 41.1 % (39.6-49.0); Hemoglobin 13.9 g/dL (13.6-17.9); Lymphocytes % 11.1 % (15.3-44.8); MCH 32.5 pg (27.0-35.0); MCHC 33.8 g/dL (32.0-36.0); MCV 96.1 fL (80-100); MPV 8.4 fL (7.6-11.3); Monocytes % 2.6 % (3.3-12.3); Neutrophils % 85.3 % (41.7-73.7); Nucleated Red Blood Cells % 0.1 % (0-0); Platelets 168 thou/uL (152-406); RBC Red Blood Cell Count 4.27 M/uL (4.33-5.43); Red Cell Distribution Width 14.9 % (12.1-15.2)
[2024-04-12] MEDS ORDERED: ONDANSETRON 4 MG/2 ML VIAL ONE (17:01)
[2024-04-12 17:02] LABS: Anion Gap 5.1 mEq/L (5.0-15.0); Potassium 4.1 mEq/L (3.5-5.1)
[2024-04-12 17:05] LABS: SARS-CoV-2 Antigen CONTROL BLUE LINE VIS/BG OK; SARS-CoV-2 Antigen Rapid Res Negative (Negative)
[2024-04-12 17:11] LABS: Blood Morphology Comment NOT SEEN (NOT SEEN); Platelet Estimate ADEQ; White Blood Cell Scan OK (OK)
--- NOTE | 2024-04-12 18:08 | ER ---
Nurse's Notes [facility] Name: Bruce Oswald Age: 43 yrs Sex: Male : 1980 Arrival Date: 04/12/2024 Time: 16:08 Bed 7 Private MD: Diagnosis: Cellulitis of buttock Presentation: 04/12 16:11 Chief complaint: EMS states: C/O chills, body aches, and boils under arm and on ph buttocks, VSS. Coronavirus screen: Vaccine status: Patient reports being unvaccinated. Ebola Screen: No symptoms or risks identified at this time. Initial Sepsis Screen: Does the patient meet any 2 criteria? No. Patient's initial sepsis screen is negative. Does the patient have a suspected source of infection? No. Patient's initial sepsis screen is negative. Risk Assessment: Do you want to hurt yourself or someone else? Patient reports no desire to harm self or others. Onset of symptoms was April 12, 2024. 16:11 Method Of Arrival: EMS: [facility] 16:11 Acuity: ZENON 3 ph Triage Assessment: 16:15 General: Appears in no apparent distress. Behavior is cooperative, drowsy, quiet. Pain: ph Complains of pain in "all over". Historical: - Allergies: 16:12 NKDA; ph - PMHx: 16:12 Anxiety; Asthma; Back pain; Hypertension; ph - Immunization history:: Adult Immunizations unknown. - Infectious Disease History:: Denies. - Social history:: Smoking status: unknown. - Family history:: not pertinent. - Hospitalizations: : No recent hospitalization is reported. Screenin:14 [facility] ED Fall Risk Assessment (Adult) History of falling in the last 3 months, ph including since admission No falls in past 3 months (0 pts) Confusion or Disorientation No (0 pts) Intoxicated or Sedated No (0 pts) Impaired Gait No (0 pts) Mobility Assist Device Used No (0 pt) Altered Elimination No (0 pt) Score/Fall Risk Level 0 - 2 = Low Risk Oriented to surroundings, Maintained a safe environment, Hourly rounding (assess needs \\T\\ fall precautionary measures) done. Abuse screen: Denies threats or abuse. Denies injuries from another. Nutritional screening: No deficits noted. Tuberculosis screening: No symptoms or risk factors identified. Assessment: 17:45 Reassessment: Patient appears in no apparent distress at this time. Patient and/or ph family updated on plan of care and expected duration. Pain level reassessed. Patient is alert, oriented x 3, equal unlabored respirations, skin warm/dry/pink. Vital Signs: 16:11 BP 182 / 109; Pulse 65; Resp 18; Temp 98.1; Pulse Ox 100% on R/A; Weight 77.11 kg; ph Height 5 ft. 9 in. ; 17:57 BP 178 / 108; Pulse 77; Resp 18; Pulse Ox 100% on R/A; ph 16:11 Body Mass Index 25.10 (77.11 kg, 175.26 cm) ph ED Course: 16:09 Patient arrived in ED. rn 16:09 Hay Saha MD is Attending Physician. rn 16:12 Triage completed. ph 16:12 Arm band placed on Patient placed in an exam room, on a stretcher, on pulse oximetry. ph 16:15 Patient has correct armband on for positive identification. Call light in reach. Side ph rails up X 1. Adult w/ patient. Pulse ox on. NIBP on. 16:16 Ramona Santillan, RN is Primary Nurse. ph 16:25 Missed attempt(s): 20 gauge in right antecubital area. Bleeding controlled, band aid ph applied, catheter tip intact. 16:35 Strep Sent. ph 16:35 Flu Sent. ph 16:35 SARS RAPID Sent. ph 16:35 CK Sent. ph 16:35 Basic Metabolic Panel Sent. ph 16:35 CBC with Diff Sent. ph 16:35 Initial lab(s) drawn, by me, sent to lab. COVID swab sent to lab. Flu and/or RSV swab ph sent to lab. Strep swab sent to lab. Inserted saline lock: 22 gauge in left antecubital area, using aseptic technique. Blood collected. 19:06 No provider procedures requiring assistance completed. IV discontinued, intact, ph bleeding controlled, No redness/swelling at site. Pressure dressing applied. Administered Medications: 16:35 Drug: NS 0.9% IV 1000 ml IV at 1000 ml once Route: IV; Rate: 1000 ml; Site: left ph forearm; 18:00 Follow up: Response: No adverse reaction; IV Status: Completed infusion; IV Intake: ph 1000ml 17:19 Drug: Ondansetron IVP 4 mg IVP once; over 2 minutes Route: IVP; Site: right antecubital;ph 19:20 Follow up: Response: No adverse reaction ph 18:46 Drug: Trimethoprim-Sulfamethoxazole PO (160 mg-800 mg (DS) 1 tablet PO once Route: PO; ph 19:20 Follow up: Response: No adverse reaction ph 19:05 Drug: Ondansetron PO 4 mg PO once Route: PO; ph 19:20 Follow up: Response: No adverse reaction ph Medication: 16:15 VIS not applicable for this client. ph Intake: 18:00 IV: 1000ml; Total: 1000ml. ph Outcome: 18:07 Discharge ordered by . rn 19:06 Discharged to home ambulatory, with family, ph 19:06 Condition: good 19:06 Discharge instructions given to patient, Instructed on discharge instructions, follow up and referral plans. medication usage, Demonstrated understanding of instructions, follow-up care, medications, Prescriptions given X 2, 19:10 Patient left the ED. ph Signatures: Hay Saha MD MD rn SantillanRamona RN RN
--- NOTE | 2024-04-12 18:08 | EDPHYS ---
Physician Documentation [facility] Name: Bruce Oswald Age: 43 yrs Sex: Male : 1980 Arrival Date: 04/12/2024 Time: 16:08 Bed 7 Private MD: ED Physician Hay Saha HPI: 04/12 18:03 This 43 yrs old Black Male presents to ER via EMS with complaints of Flu Symptoms - rn chills, body aches. 18:03 Patient reports generalized malaise, subjective fever and chills. Reports possible boil rn to right axilla and buttocks. No cough or runny nose. 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 No vomiting or diarrhea.. Severity of symptoms: At their worst the symptoms were moderate in the emergency department the symptoms are unchanged. The patient has not experienced similar symptoms in the past. The patient has not recently seen a physician. Historical: - Allergies: 16:12 NKDA; ph - PMHx: 16:12 Anxiety; Asthma; Back pain; Hypertension; ph - Immunization history:: Adult Immunizations unknown. - Infectious Disease History:: Denies. - Social history:: Smoking status: unknown. - Family history:: not pertinent. - Hospitalizations: : No recent hospitalization is reported. ROS: 18:03 Constitutional: Positive for chills, positive for myalgias Eyes: Negative for injury, rn pain, redness, and discharge, ENT: Negative for injury, pain, and discharge, Neck: Negative for injury, pain, and swelling, Cardiovascular: Negative for chest pain, palpitations, and edema, Respiratory: Negative for shortness of breath, cough, wheezing, and pleuritic chest pain, Abdomen/GI: Negative for abdominal pain, nausea, vomiting, diarrhea, and constipation, MS/Extremity: Negative for injury and deformity, Skin: Negative for injury, rash, and discoloration, Neuro: Positive for generalized malaise and weakness. Exam: 18:03 Constitutional: This is a well developed, well nourished patient who is awake, alert, rn and in no acute distress. Head/Face: Normocephalic, atraumatic. ENT: Dry mucous membranes Neck: Trachea midline, no masses palpated, and no cervical lymphadenopathy. Supple, full range of motion without nuchal rigidity, or vertebral point tenderness. No Meningismus. Cardiovascular: Regular rate and rhythm . No pulse deficits. Respiratory: Lungs have equal breath sounds bilaterally, clear to auscultation and percussion. No rales, rhonchi or wheezes noted. No increased work of breathing, no retractions or nasal flaring. Abdomen/GI: Soft, non-tender, with normal bowel sounds. No distension or tympany. No guarding or rebound. No evidence of tenderness throughout. No masses Back: No spinal tenderness. No costovertebral tenderness. Full range of motion. Skin right above gluteal cleft with 2 cm area of induration and warmth, no fluctuance MS/ Extremity: Pulses equal, no cyanosis. Neuro: Awake and alert, GCS 15, oriented to person, place, time, and situation. Cranial nerves II-XII grossly intact. Motor strength 5/5 in all extremities. Sensory grossly intact. Vital Signs: 16:11 BP 182 / 109; Pulse 65; Resp 18; Temp 98.1; Pulse Ox 100% on R/A; Weight 77.11 kg; ph Height 5 ft. 9 in. ; 17:57 BP 178 / 108; Pulse 77; Resp 18; Pulse Ox 100% on R/A; ph 16:11 Body Mass Index 25.10 (77.11 kg, 175.26 cm) ph MDM: 16:09 Patient medically screened. rn 18:03 Differential Diagnosis Flu, COVID, viral illness, UTI, heat exhaustion, cellulitis. rn Data reviewed: vital signs, nurses notes, lab test result(s). Counseling: I had a detailed discussion with the patient and/or guardian regarding the historical points, exam findings, and any diagnostic results supporting the discharge/admit diagnosis, lab results. Refusal of service: The patient/guardian displays adequate decision making capability and despite a detailed discussion of alternatives, benefits, risks, and consequences refuses: Patient refuses urine sample, very uncooperative. ED course: Patient does not cooperate with rest of examination and care. Refuses urine sample. Will discharge home with Bactrim for possible cellulitis given lower back skin findings and subjective fever or chills. Flu and COVID-negative. Patient is hydrated well with stable vital signs.. 18:08 Care significantly affected by the following chronic conditions: Hypertension. Special rn discussion: I have referred the patient to see his PCP for further evaluation of high blood pressure. 04/12 16:10 Order name: CBC with Diff; Complete Time: 17:26 rn 04/12 16:10 Order name: Basic Metabolic Panel; Complete Time: 17:26 rn 04/12 16:10 Order name: CK; Complete Time: 17:26 rn 04/12 16:10 Order name: SARS RAPID; Complete Time: 17:26 rn 04/12 16:10 Order name: Flu; Complete Time: 17: rn 04/12 16:10 Order name: Strep rn 04/12 16:52 Order name: CBC Smear Scan; Complete Time: 17:26 EDMS 04/12 16:59 Order name: Throat Culture EDMS 04/12 16:10 Order name: IV Start; Complete Time: 16:35 rn Administered Medications: 16:35 Drug: NS 0.9% IV 1000 ml IV at 1000 ml once Route: IV; Rate: 1000 ml; Site: left ph forearm; 18:00 Follow up: Response: No adverse reaction; IV Status: Completed infusion; IV Intake: ph 1000ml 17:19 Drug: Ondansetron IVP 4 mg IVP once; over 2 minutes Route: IVP; Site: right antecubital;ph 19:20 Follow up: Response: No adverse reaction ph 18:46 Drug: Trimethoprim-Sulfamethoxazole PO (160 mg-800 mg (DS) 1 tablet PO once Route: PO; ph 19:20 Follow up: Response: No adverse reaction ph 19:05 Drug: Ondansetron PO 4 mg PO once Route: PO; ph 19:20 Follow up: Response: No adverse reaction ph Disposition Summary: 04/12/24 18:07 Discharge Ordered Notes: Location: Home rn Problem: new rn Symptoms: have improved rn Condition: Stable rn Diagnosis - Cellulitis of buttock rn Followup: rn - With: Private Physician - When: As needed - Reason: Recheck today's complaints, Re-evaluation by your physician Discharge Instructions: - Discharge Summary Sheet rn - Cellulitis, Adult rn Forms: - Medication Reconciliation Form rn - Antibiotic tornado chaser - Prescription Opioid Use rn - Patient Portal Instructions rn - Leadership Thank You Letter rn Prescriptions: - ondansetron 4 mg Oral Tablet,disintegrating - take 1 tablet ORAL route every 8 hours As needed; 12 tablet; Refills: 0, rn Product Selection Permitted - Bactrim DS 800-160 mg Oral Tablet - take 1 tablet ORAL route every 12 hours for 10 days; 20 tablet; Refills: 0, rn Product Selection Permitted Signatures: Dispatcher [employer] EDMS Hay Saha MD MD rn Hall, Patricia, RN RN ph Corrections: (The following items were deleted from the chart) 16:11 16:11 CBC+H.LAB.BRZ ordered. EDMS EDMS 16:11 16:11 BASIC METABOLIC PANEL+C.LAB.BRZ ordered. EDMS EDMS 16:11 16:11 CREATINE PHOSPHOKINASE+C.LAB.BRZ ordered. EDMS EDMS 16:11 16:11 Urinalysis+U.LAB.BRZ ordered. EDMS EDMS 16:11 16:11 SARS-COV-2 Antigen Rapid+I.LAB.BRZ ordered. EDMS EDMS 16:11 16:11 Influenza Screen (A \T\ B)+BA.LAB.BRZ ordered. EDMS EDMS 16:11 16:11 Group A Streptococcus Rapid Sc+BA.LAB.BRZ ordered. EDMS EDMS
[2024-04-12] MEDS ORDERED: SMZ./TMP. 800/160 MG TABLET ONE (18:17)
[2024-04-12] MEDS ORDERED: ONDANSETRON 4 MG (ODT) TAB ONE (18:56)
[2024-04-12 19:40] VITALS: BP 178/108; TEMP 98.1; O2SAT 100
== END 2024-04-12 19:10 | disposition home or self-care (01) ==
LOC: ER 16:08
DX: L03.317 Cellulitis of buttock (principal); Z11.52 Encounter for screening for COVID-19
CPT/HCPCS: 96361; 87070; 85025; 80048; 36415; 82550; 87081; 87804 ×2; 96374; 99284; 87811; Q0162; J2405; J7030